=== PATIENT | male | born 1945 | race Hispanic/Latino ===

== ENCOUNTER 2016-05-30 15:50 | Inpatient (IN) | payer MEDICARE, BC ==
--- NOTE | 2016-05-30 16:29 | ED PDOC ---
HPI: General Adult Time Seen by Provider: 05/30/16 16:10 Chief Complaint (Nursing): Abdominal Pain Chief Complaint (Provider): abdominal pain History Per: Patient History/Exam Limitations: no limitations Additional Complaint(s): 71yo male comes to the ED complaining of abdominal pain and distention for 1 week. No vomit or nausea but he has been having diarrhea. He has only been eating soup and drinking fluids. Also reports shortness of breath progressively worsening, stating he is unable to walk more than 1 block. Denies chest pain with exertion but does report intermittent chest pain, described as sharp. States he will see a cosmetic surgeon in approximately 1 month. States he sleeps on 2 pillows at home. Past Medical History Reviewed: Historical Data, Nursing Documentation, Vital Signs Vital Signs: Last Vital Signs Temp 98.5 F 05/30/16 15:55 Pulse 116 H 05/30/16 15:55 Resp 14 05/30/16 15:55 BP 123/72 05/30/16 15:55 Pulse Ox 100 05/30/16 18:52 - Medical History PMH: HTN - Family History Family History: States: Unknown Family Hx - Allergies Allergies/Adverse Reactions: Allergies Allergy/AdvReac Type Severity Reaction Status Date / Time No Known Allergies Allergy Verified 05/30/16 15:54 Review of Systems ROS Statement: Except As Marked, All Systems Reviewed And Found Negative Cardiovascular: Positive for: Chest Pain Respiratory: Positive for: Shortness of Breath Gastrointestinal: Positive for: Abdominal Pain, Diarrhea. Negative for: Nausea , Vomiting Physical Exam - Reviewed Nursing Documentation Reviewed: Yes Vital Signs Reviewed: Yes - Physical Exam Appears: Positive for: Well, Non-toxic, No Acute Distress Head Exam: Positive for: ATRAUMATIC, NORMAL INSPECTION, NORMOCEPHALIC Skin: Positive for: Warm, Dry Eye Exam: Positive for: EOMI, PERRL Cardiovascular/Chest: Positive for: Regular Rate, Rhythm Respiratory: Positive for: Crackles (at the bases bilaterally). Negative for: Rhonchi, Wheezing Gastrointestinal/Abdominal: Positive for: Soft, Distended. Negative for: Tenderness Extremity: Positive for: Normal ROM, Other (2+ pitting edema of leg) Neurologic/Psych: Positive for: Alert, Oriented - Laboratory Results Result Diagrams: 05/30/16 17:00 05/30/16 17:00 - ECG O2 Sat by Pulse Oximetry: 100 Medical Decision Making Medical Decision Makin Impression: first time diagnosis of CHF, rule out Diverticulitis Plan: -CT abd/pel w/ -EKG -CXR -Labs -reassess Disposition - Clinical Impression Clinical Impression: Abdominal distension - Patient ED Disposition Is Patient to be Admitted: Transfer of Care - Disposition Disposition: Transfer of Care Disposition Time: 19:00 Condition: STABLE Patient Signed Over To: Fernie Adorno Handoff Comments: pending ct angio results Additional Comments - Additional Comments Additional Comments: Scribe Attestation: Documented by Omer Jennings acting as a scribe for Kristofer Warren MD Provider Scribe Attestation: All medical record entries made by the Scribe were at my direction and personally dictated by me. I have reviewed the chart and agree that the record accurately reflects my personal performance of the history, physical exam, medical decision making, and the department course for this patient. I have also personally directed, reviewed, and agree with the discharge instructions and disposition.
[2016-05-30 17:26] LABS: ALB/GLOB RATIO 0.5 (1.0-2.1); ALKALINE PHOSPHATASE 117 U/L (38-126); ALT/SGPT 24 U/L (21-72); AST/SGOT 50 U/L (17-59); BILIRUBIN,TOTAL 2.6 mg/dl (0.2-1.3); BLOOD UREA NITROGEN 13 mg/dl (9-20); CALCIUM 8.2 mg/dL (8.4-10.2); CARBON DIOXIDE 21 mmol/L (22-30); CHLORIDE 108 mmol/L (98-107); GFR AFRICAN-AMERICAN > 60; GLUCOSE,RANDOM 96 mg/dL (75-110); POTASSIUM 4.1 MMOL/L (3.6-5.0); SODIUM 135 mmol/l (132-148); TOTAL PROTEIN 7.5 G/DL (6.3-8.2)
[2016-05-30 17:28] LABS: BASO # 0.1 K/uL (0.0-0.2); BASO % 0.6 % (0.0-2.0); EOS # 0.2 K/uL (0.0-0.7); EOS % 1.4 % (0.0-4.0); HEMATOCRIT 36.3 % (35.0-51.0); LYMPH # 1.4 K/uL (1.0-4.3); LYMPH % 10.1 % (20.0-40.0); MEAN CELL VOLUME 99.9 fl (80.0-94.0); MEAN CORPUSCULAR HEMOGLOBIN 33.6 pg (27.0-31.0); MEAN CORPUSCULAR HGB CONC 33.7 g/dL (33.0-37.0); MONO # 1.3 K/uL (0.0-0.8); MONO % 9.5 % (0.0-10.0); NEUT # 10.7 K/uL (1.8-7.0); NEUT % 78.4 % (50.0-75.0); NRBC % 0.1 % (0.0-0.0); RED CELL DISTRIBUTION WIDTH 15.3 % (11.5-14.5); WHITE BLOOD COUNT 13.6 K/uL (4.8-10.8)
[2016-05-30 18:04] LABS: RBC URINE 12 /hpf (0-3); URINE BACTERIA RARE (<OCC); URINE BILIRUBIN NEGATIVE (NEGATIVE); URINE BLOOD SMALL (NEGATIVE); URINE CALCIUM OXALATE CRYSTALS OCC /hpf (<OCC); URINE COLOR AMBER (YELLOW); URINE GLUCOSE (UA) NEG (Normal); URINE KETONE NEGATIVE (NEGATIVE); URINE LEUKOCYTE ESTERASE SMALL Leu/uL (Negative); URINE PROTEIN 30 mg/dL (NEGATIVE); WBC URINE 13 /hpf (0-5)
[2016-05-30] MEDS ORDERED: Iohexol 300 100 ML IJ ONE (18:04)
--- NOTE | 2016-05-30 19:02 | CT ---
PROCEDURE: CT Abdomen and Pelvis with contrast HISTORY: abdominal distension COMPARISON: None. TECHNIQUE: Contrast dose: 100 cc Omnipaque 300 Radiation dose: Total exam DLP = 1145.73 mGy-cm. FINDINGS: LOWER THORAX: No evidence of acute pathology. LIVER: Advanced cirrhotic changes are seen. There is low-attenuation 1.2 centimeter lesion at the posterior aspect of the right liver dome. There is also low-attenuation 1.1 centimeter lesion at the peripheral left liver lobe. There is re- cannulization of the paraumbilical vein. GALLBLADDER AND BILE DUCTS: The gallbladder is mildly distended. PANCREAS: Unremarkable. No gross lesion or ductal dilatation. SPLEEN: Splenomegaly is again seen. The spleen measures 16 centimeter in the largest longitudinal diameter. ADRENALS: Unremarkable. No mass. KIDNEYS AND URETERS: Unremarkable. No hydronephrosis. No solid mass. VASCULATURE: Multiple collateral veins seen in the upper abdomen including paraesophageal varices consistent with portal hypertension. . No aortic aneurysm. BOWEL: Colonic diverticulosis are seen without evidence of diverticulitis. No evidence of bowel obstruction. APPENDIX: Normal appendix. PERITONEUM: Moderate to large ascites in the abdomen and pelvis. No evidence of free air. LYMPH NODES: Unremarkable. No enlarged lymph nodes. BLADDER: Mild urinary bladder wall thickening. REPRODUCTIVE: [id number] enlarged prostate and seminal vesicles BONES: Large Schmorl nodes versus focal compression deformity at the superior endplate of L3. OTHER FINDINGS: None. IMPRESSION: Findings consistent with advanced cirrhosis and portal hypertension. Moderate to large ascites in the abdomen and pelvis. Splenomegaly. Multiple collateral veins in the upper abdomen consistent with portal systemic shunts and varices related to portal hypertension. Two hypo attenuation lesions in the liver. Enlarged prostate.
--- NOTE | 2016-05-30 19:35 | ED PDOC ---
- Laboratory Results Result Diagrams: 05/30/16 17:00 05/30/16 17:00 - ECG O2 Sat by Pulse Oximetry: 100 (RA) Pulse Ox Interpretation: Normal Medical Decision Making Medical Decision Making: Receiving Sign Out: Patient signed out to me by Dr. Warren pending response from Dr. Montoya and final disposition. Scribe Attestation: Documented by Evelia Hilliard acting as a scribe for Fernie Adorno MD. Provider Attestation: All medical record entries made by the Scribe were at my direction and personally dictated by me. I have reviewed the chart and agree that the record accurately reflects my personal performance of the history, physical exam, medical decision making, and the department course for this patient. I have also personally directed, reviewed, and agree with the discharge instructions and disposition. Disposition Counseled Patient/Family Regarding: Studies Performed, Diagnosis, Need For Followup - Clinical Impression Clinical Impression: Abdominal distension - POA Present On Arrival: None - Disposition Disposition: Admitted as In-Patient Disposition Time: 20:00 Condition: STABLE Progress Note - Review of Symptoms Events since last encounter: Time: 1942 No call back yet from Dr. Montoya Time: [address] Montoya who advised to admit pt under him. Requesting blood culture as well and urine culture. Also advised to get GI consult with Dr. Kyle and give pt Zosyn. Discussed plan with pt and daughter who are both agreeable. Time: [address] Kyle who is aware.
[2016-05-30] MEDS ORDERED: Piperacillin/Tazobact 4.5 GM in Sodium Chloride 0.9% 100 ML IVPB STA (21:02)
[2016-05-30] MEDS ORDERED: Piperacillin/Tazobact 3.375 gm Inj IVPB ONE (21:06)
--- NOTE | 2016-05-31 08:41 | RAD ---
HISTORY: SOB, crackles at bases COMPARISON: No prior. TECHNIQUE: Chest PA and lateral FINDINGS: LUNGS: No active pulmonary disease. PLEURA: No significant pleural effusion identified. No pneumothorax apparent. CARDIOVASCULAR: Normal. OSSEOUS STRUCTURES: No significant abnormalities. VISUALIZED UPPER ABDOMEN: Normal. OTHER FINDINGS: Mild elevation of the right hemidiaphragm noted. IMPRESSION: No active disease. Baseline study.
[2016-05-31 10:35] LABS: BASO # 0.2 K/uL (0.0-0.2); BASO % 1.2 % (0.0-2.0); EOS # 0.4 K/uL (0.0-0.7); EOS % 3.3 % (0.0-4.0); HEMATOCRIT 33.6 % (35.0-51.0); LYMPH # 1.5 K/uL (1.0-4.3); LYMPH % 11.7 % (20.0-40.0); MEAN CELL VOLUME 99.4 fl (80.0-94.0); MEAN CORPUSCULAR HEMOGLOBIN 33.9 pg (27.0-31.0); MEAN CORPUSCULAR HGB CONC 34.1 g/dL (33.0-37.0); MEAN PLATELET VOLUME 8.6 fl (7.2-11.7); MONO # 1.5 K/uL (0.0-0.8); MONO % 11.9 % (0.0-10.0); NEUT # 9.3 K/uL (1.8-7.0); NEUT % 71.9 % (50.0-75.0); RED CELL DISTRIBUTION WIDTH 15.2 % (11.5-14.5); WHITE BLOOD COUNT 12.9 K/uL (4.8-10.8)
[2016-05-31 10:45] LABS: AMYLASE 71 U/L (30-110); BLOOD UREA NITROGEN 14 mg/dl (9-20); CALCIUM 7.9 mg/dL (8.4-10.2); CARBON DIOXIDE 24 mmol/L (22-30); CHLORIDE 109 mmol/L (98-107); CHOLESTEROL 57 mg/dL (0-199); GFR AFRICAN-AMERICAN > 60; GLUCOSE,RANDOM 76 mg/dL (75-110); LIPASE 316 U/L (23-300); POTASSIUM 4.4 MMOL/L (3.6-5.0); SODIUM 138 mmol/l (132-148)
[2016-05-31 11:14] LABS: THYROID STIMULATING HORMONE 2.48 mIU/ML (0.46-4.68)
--- NOTE | 2016-05-31 15:47 | CP.PCM.HP ---
History of Present Illness - History of Present Illness History of Present Illness: 71 yo admitted for nonspecific abdominal pain with change in bowel movements Present on Admission - Present on Admission Any Indicators Present on Admission: No Past Patient History - Past Medical History & Family History Past Medical History?: Yes - Past Social History Smoking Status: Former Smoker - CARDIAC Hx Cardiac Disorders: Yes Hx Hypertension: Yes - PULMONARY Hx Respiratory Disorders: No - NEUROLOGICAL Hx Neurological Disorder: No - HEENT Hx HEENT Problems: No - RENAL Hx Chronic Kidney Disease: No - ENDOCRINE/METABOLIC Hx Endocrine Disorders: No - HEMATOLOGICAL/ONCOLOGICAL Hx Blood Disorders: No - INTEGUMENTARY Hx Dermatological Problems: No - MUSCULOSKELETAL/RHEUMATOLOGICAL Hx Falls: Yes (2 in past 2 weeks) - GASTROINTESTINAL Hx Gastrointestinal Disorders: No - GENITOURINARY/GYNECOLOGICAL Hx Genitourinary Disorders: No - PSYCHIATRIC Hx Substance Use: No - SURGICAL HISTORY Hx Surgeries: Yes Other/Comment: 2000 arthroscopic knee surgery - ANESTHESIA Hx Anesthesia: Yes Hx Anesthesia Reactions: No Hx Malignant Hyperthermia: No Has any member of the family had a problem w/ anesthesia?: No Meds Allergies/Adverse Reactions: Allergies Allergy/AdvReac Type Severity Reaction Status Date / Time No Known Allergies Allergy Verified 05/30/16 15:54 Physical Exam - Respiratory Exam Respiratory Exam: NORMAL BREATHING PATTERN - Cardiovascular Exam Cardiovascular Exam: REGULAR RHYTHM - GI/Abdominal Exam GI & Abdominal Exam: Normal Bowel Sounds Results - Vital Signs Recent Vital Signs: Last Vital Signs Temp 98 F 05/31/16 07:54 Pulse 92 H 05/31/16 12:00 Resp 20 05/31/16 07:54 BP 110/68 05/31/16 12:00 Pulse Ox 96 05/31/16 07:54 - Labs Result Diagrams: 05/31/16 10:30 05/31/16 10:30 Labs: Laboratory Results - last 24 hr 05/31/16 10:30 WBC 12.9 H RBC 3.38 L Hgb 11.5 L Hct 33.6 L MCV 99.4 H MCH 33.9 H MCHC 34.1 RDW 15.2 H Plt Count 113 L D MPV 8.6 Neut % (Auto) 71.9 Lymph % (Auto) 11.7 L [place] % (Auto) 11.9 H Eos % (Auto) 3.3 Baso % (Auto) 1.2 Neut # 9.3 H Lymph # 1.5 [place] # 1.5 H Eos # 0.4 Baso # 0.2 Sodium 138 Potassium 4.4 Chloride 109 H Carbon Dioxide 24 Anion Gap 9 L BUN 14 Creatinine 0.9 Est GFR ( Amer) > 60 Est GFR (Non-Af Amer) > 60 Random Glucose 76 Calcium 7.9 L Ammonia < 9 L Triglycerides 64 Cholesterol 57 LDL Cholesterol Direct < 30 HDL Cholesterol 14 L Amylase 71 Lipase 316 H TSH 3rd Generation 2.48 Assessment & Plan - Assessment and Plan (Free Text) Assessment: Abdominal pain with change in BM Hepatosplenomegaly Portal HTN ascites Leukopcytosis Gastroenteritis vs ??SBE ABX cultures Clear liquids GI consult
[2016-05-31] MEDS: Ciprofloxacin 400mg/200ml D5W 200 ML IVPB SCH (20:11)
--- NOTE | 2016-05-31 21:41 | CP.PCM.CON ---
History of Present Illness - History of Present Illness History of Present Illness: 71yo male with past history of hypertension, admitted with abdominal distention , diarrhea , and shortness of breath. Symptoms of diarrhea and abdominal pain started about2 weeks ago. They initially resolved but then he noted increasing abdominal distention. Has no prior knowledge of liver disease and has not used alcohol regularly for 3 years. No risk factors for HCV. Review of Systems - EENT Eyes: absent: Blurred Vision Ears: absent: Decreased Hearing Nose/Mouth/Throat: absent: Epistaxis - Cardiovascular Cardiovascular: absent: Chest Pain - Respiratory Respiratory: Dyspnea - Gastrointestinal Gastrointestinal: Abdominal Pain Past Patient History - Past Medical History & Family History Past Medical History?: Yes - Past Social History Smoking Status: Former Smoker - CARDIAC Hx Cardiac Disorders: Yes Hx Hypertension: Yes - PULMONARY Hx Respiratory Disorders: No - NEUROLOGICAL Hx Neurological Disorder: No - HEENT Hx HEENT Problems: No - RENAL Hx Chronic Kidney Disease: No - ENDOCRINE/METABOLIC Hx Endocrine Disorders: No - HEMATOLOGICAL/ONCOLOGICAL Hx Blood Disorders: No - INTEGUMENTARY Hx Dermatological Problems: No - MUSCULOSKELETAL/RHEUMATOLOGICAL Hx Falls: Yes (2 in past 2 weeks) - GASTROINTESTINAL Hx Gastrointestinal Disorders: No - GENITOURINARY/GYNECOLOGICAL Hx Genitourinary Disorders: No - PSYCHIATRIC Hx Substance Use: No - SURGICAL HISTORY Hx Surgeries: Yes Other/Comment: 2000 arthroscopic knee surgery - ANESTHESIA Hx Anesthesia: Yes Hx Anesthesia Reactions: No Hx Malignant Hyperthermia: No Has any member of the family had a problem w/ anesthesia?: No Meds Allergies/Adverse Reactions: Allergies Allergy/AdvReac Type Severity Reaction Status Date / Time No Known Allergies Allergy Verified 05/30/16 15:54 - Medications Medications: Current Medications Piperacillin Sod/Tazobactam (Sod 2.25 gm/ Sodium Chloride) 100 mls @ 100 mls/ hr IVPB Q8 [facility] Last Admin: 05/31/16 17:42 Dose: 100 mls/hr Ciprofloxacin (Cipro 400mg/200ml Dsw) 200 mls @ 200 mls/hr IVPB Q12 [facility] Last Admin: 05/31/16 20:11 Dose: 200 mls/hr Spironolactone (Aldactone) 50 mg PO DAILY [facility] Physical Exam - Head Exam Head Exam: ATRAUMATIC - Eye Exam Eye Exam: Normal appearance - ENT Exam ENT Exam: Mucous Membranes Moist - Neck Exam Neck exam: Positive for: Normal Inspection - Cardiovascular Exam Cardiovascular Exam: REGULAR RHYTHM, +S1, +S2 - GI/Abdominal Exam GI & Abdominal Exam: Distended, Normal Bowel Sounds Results - Vital Signs Recent Vital Signs: Last Vital Signs Temp 98.6 F 05/31/16 21:25 Pulse 86 05/31/16 21:25 Resp 18 05/31/16 21:25 BP 103/66 05/31/16 21:25 Pulse Ox 96 05/31/16 21:25 - Labs Result Diagrams: 05/31/16 10:30 05/31/16 10:30 Labs: Laboratory Results - last 24 hr 05/31/16 05/31/16 10:30 17:55 WBC 12.9 H RBC 3.38 L Hgb 11.5 L Hct 33.6 L MCV 99.4 H MCH 33.9 H MCHC 34.1 RDW 15.2 H Plt Count 113 L D MPV 8.6 Neut % (Auto) 71.9 Lymph % (Auto) 11.7 L [place] % (Auto) 11.9 H Eos % (Auto) 3.3 Baso % (Auto) 1.2 Neut # 9.3 H Lymph # 1.5 [place] # 1.5 H Eos # 0.4 Baso # 0.2 Sodium 138 Potassium 4.4 Chloride 109 H Carbon Dioxide 24 Anion Gap 9 L BUN 14 Creatinine 0.9 Est GFR ( Amer) > 60 Est GFR (Non-Af Amer) > 60 Random Glucose 76 Calcium 7.9 L Ammonia < 9 L Triglycerides 64 Cholesterol 57 LDL Cholesterol Direct < 30 HDL Cholesterol 14 L Amylase 71 Lipase 316 H TSH 3rd Generation 2.48 Influenza Typ A,B (EIA) Negative for flu a/b Assessment & Plan (1) Abdominal distension Assessment and Plan: Initial symptoms may have been from gastroenteritis and currently patient doing better on antibiotics. Cause of cirrhosis unclear and appropriate bloodwork ordered. Since patient has no priorh/o ascites a diagnostic parascentesis by IR is reasonable. Fluid and salt restriction as well as aldactone 50 mg started. Cozaar stopped. Status: Acute
[2016-06-01 07:04] LABS: IRON 70 ug/dL (49-181)
[2016-06-01] MEDS: Ciprofloxacin 400mg/200ml D5W 200 ML IVPB SCH (09:05)
--- NOTE | 2016-06-01 12:25 | PQF GENQUE ---
Dr. Montoya, (1)After work up complete and if known:Gastroenteritis ruled in or ruled out? (2) If Gastroenteritis is ruled in: type/etiology if known? (3) SBE ruled in or ruled out? OR: Unable to determine --Attending H and P: Gastroenteritis vs ??SBE: ABX cultures, Clear liquids --GI consult: Abdominal distension Assessment and Plan: Initial symptoms may have been from gastroenteritis and currently patient doing better on antibiotics. Cause of cirrhosis unclear and appropriate blood work ordered. Since patient has no prior h/o ascites a diagnostic parascentesis by IR is reasonable. Fluid and salt restriction as well as aldactone 50 mg started. Cozaar stopped. Status: Acute WBC:12.9 C-diff toxin A B: negative 2 blood cultures :prelim: -blood culture prelim: GRAM POSITIVE COCCI QUANTITATION BLOOD CULTURE POSITIVE FOR ANAEROBIC BOTTLE POSITIVE ONLY. GS GRAM STAIN RESULT PCG GRAM POSITIVE COCCI IN CLUSTERS - blood culture: GRAM POSITIVE COCCI QUANTITATION BLOOD CULTURE POSITIVE FOR ANAEROBIC BOTTLEPOSITIVE ONLY. GS GRAM STAIN RESULT PCG GRAM POSITIVE COCCI IN CLUSTERS ID consult pending This form is a permanent part of the medical record Clarification of your documentation is requested to better reflect the severity of illness and intensity of treatment of your patient. Indicators present [] Specify: [] [] Specify: [] [] Specify: [] [] Specify: [] Location in the medical record that reflects the above clinical findings: [] Treatment Provided: [] PHYSICIAN'S RESPONSE Based on your medical judgment of the clinical indicators outlined above please clarify the following: [] Practitioner response [] If unable to determine, please check the box, sign and date. Present On Admission (POA) Indicator: [] Present at the time of admission [] Not present at the time of admission [] Clinically Undetermined In responding to this query, please exercise your independent professional judgment. The fact that a question is asked does not imply that any particular answer is desired or expected. Thank you for your clarification on this documentation. If you have any questions please call. * Thank you, Sheela Kohler RN BSN ext. #[phone] MTDD
--- NOTE | 2016-06-01 13:04 | PCM.SURG1 ---
Surgeon's Initial Post Op Note - Surgeon's Notes Surgeon: Susan Dwyer Trouble Operator: None Type of Anesthesia: Local Pre-Operative Diagnosis: Ascites Operative Findings: Limited ultrasound showed a large amount of ascites. Post-Operative Diagnosis: Ascites Operation Performed: US guided paracentesis. Specimen/Specimens Removed: 4.6 liters of straw colored fluid. Estimated Blood Loss: EBL {In ML}: 0 Blood Products Given: N/A Drains Used: No Drains Post-Op Condition: Fair Date of Surgery/Procedure: 06/01/16 Time of Surgery/Procedure: 13:20
[2016-06-01 13:20] LABS: BODY FLUID TYPE PERITONEAL/ASCITES
--- NOTE | 2016-06-01 13:30 | CP.PCM.CON ---
History of Present Illness - History of Present Illness History of Present Illness: 71yo male comes to the ED complaining of abdominal pain and distention for 1 week. No vomit or nausea but he has been having diarrhea. He has only been eating soup and drinking fluids. Also reports shortness of breath progressively worsening, stating he is unable to walk more than 1 block. Denies chest pain with exertion but does report intermittent chest pain, described as sharp. States he will see a musculoskeletal physician in approximately 1 month. States he sleeps on 2 pillows at home. FOUND TO HAVE + BLOOD C/S LARGE ASCITES AND CIRRHOSIS OF LIVER Review of Systems - Constitutional Constitutional: Anorexia, Fatigue - EENT Eyes: absent: As Per HPI, Blind Spots, Blurred Vision, Change in Vision, Decreased Night Vision, Diplopia, Discharge, Dry Eye, Exophthalmos, Floaters, Irritation, Itchy Eyes, Loss of Peripheral Vision, Pain, Photophobia, Requires Corrective Lenses, Sees Flashes, Spots in Vision, Tunnel Vision, Other Visual Disturbances, Loss of Vision, Other Ears: absent: As Per HPI, Decreased Hearing, Ear Discharge, Ear Pain, Tinnitus, Abnormal Hearing, Disequilibrium, Dizziness, Other Nose/Mouth/Throat: absent: As Per HPI, Epistaxis, Nasal Congestion, Nasal Discharge, Nasal Obstruction, Nasal Trauma, Nose Pain, Post Nasal Drip, Sinus Pain, Sinus Pressure, Bleeding Gums, Change in Voice, Dental Pain, Dry Mouth, Dysphagia, Halitosis, Hoarsness, Lip Swelling, Mouth Lesions, Mouth Pain, Odynophagia, Sore Throat, Throat Swelling, Tongue Swelling, Facial Pain, Neck Pain, Neck Mass, Other - Cardiovascular Cardiovascular: absent: As Per HPI, Acrocyanosis, Chest Pain, Chest Pain at Rest , Chest Pain with Activity, Claudication, Diaphoresis, Dyspnea, Dyspnea on Exertion, Edema, Irregular Heart Rhythm, Pain Radiating to Arm/Neck/Jaw, Leg Edema, Leg Ulcers, Lightheadedness, Orthopnea, Palpitations, Paroxysmal Nocturnal Dyspnea, Pedal Edema, Radiating Pain, Rapid Heart Rate, Slow Heart Rate, Syncope, Other - Respiratory Respiratory: absent: As Per HPI, Cough, Dyspnea, Hemoptysis, Dyspnea on Exertion , Wheezing, Snoring, Stridor, Pain on Inspiration, Chest Congestion, Excessive Mucous Production, Change in Mucous Color, Pain with Coughing, Other - Gastrointestinal Gastrointestinal: As Per HPI, Abdominal Pain - Genitourinary Genitourinary: absent: As Per HPI, Change in Urinary Stream, Difficulty Urinating, Dysuria, Flank Pain, Hematuria, Pyuria, Nocturia, Urinary Incontinence, Urinary Frequency, Urinary Hesitance, Urinary Urgency, Voiding Freq/Small Amts, Freq UTI, Hx Renal/Bladder Calculi, Hx /Renal Surgery, Bladder Distension, Other - Musculoskeletal Musculoskeletal: As Per HPI - Integumentary Integumentary: As Per HPI - Neurological Neurological: absent: As Per HPI, Abnormal Gait, Abnormal Hearing, Abnormal Movements, Abnormal Speech, Behavioral Changes, Burning Sensations, Confusion, Convulsions, Disequilibrium, Dizziness, Numbness, Focal Weakness, Frequent Falls , Headaches, Lack of Coordination, Loss of Vision, Memory Loss, Paresthesias, Radicular Pain, Restless Legs, Sensory Deficit, Syncope, Tingling, Tremor, Vertigo, Weakness, Other Visual Disturbances, Other - Psychiatric Psychiatric: absent: As Per HPI, Abnormal Sleep Pattern, Anhedonia, Anxiety, Auditory Hallucinations, Behavioral Changes, Change in Appetite, Change in Libido, Confusion, Depression, Difficulty Concentrating, Hallucinations, Homicidal Ideation, Hopelessness, Irritability, Memory Loss, Mood Swings, Panic Attacks, Paranoia, Suicidal Ideation, Visual Hallucinations, Tactile Hallucinations, Other - Endocrine Endocrine: absent: As Per HPI, Change in Body Appearance, Change in Libido, Cold Intolorance, Deepening of Voice, Excessive Sweating, Fatigue, Flushing, Heat Intolorance, Increase in Ring/Shoe/Hat Size, Palpitations, Polydipsia, Polyphagia, Polyuria, Other - Hematologic/Lymphatic Hematologic: absent: As Per HPI, Easy Bleeding, Easy Bruising, Lymphadenopathy, Other Past Patient History - Past Medical History & Family History Past Medical History?: Yes - Past Social History Smoking Status: Former Smoker - CARDIAC Hx Cardiac Disorders: Yes Hx Hypertension: Yes - PULMONARY Hx Respiratory Disorders: No - NEUROLOGICAL Hx Neurological Disorder: No - HEENT Hx HEENT Problems: No - RENAL Hx Chronic Kidney Disease: No - ENDOCRINE/METABOLIC Hx Endocrine Disorders: No - HEMATOLOGICAL/ONCOLOGICAL Hx Blood Disorders: No - INTEGUMENTARY Hx Dermatological Problems: No - MUSCULOSKELETAL/RHEUMATOLOGICAL Hx Falls: Yes (2 in past 2 weeks) - GASTROINTESTINAL Hx Gastrointestinal Disorders: No - GENITOURINARY/GYNECOLOGICAL Hx Genitourinary Disorders: No - PSYCHIATRIC Hx Substance Use: No - SURGICAL HISTORY Hx Surgeries: Yes Other/Comment: 2000 arthroscopic knee surgery - ANESTHESIA Hx Anesthesia: Yes Hx Anesthesia Reactions: No Hx Malignant Hyperthermia: No Has any member of the family had a problem w/ anesthesia?: No Meds Allergies/Adverse Reactions: Allergies Allergy/AdvReac Type Severity Reaction Status Date / Time No Known Allergies Allergy Verified 05/30/16 15:54 - Medications Medications: Current Medications Piperacillin Sod/Tazobactam (Sod 2.25 gm/ Sodium Chloride) 100 mls @ 100 mls/ hr IVPB Q8 [facility] Last Admin: 06/01/16 09:02 Dose: 100 mls/hr Ciprofloxacin (Cipro 400mg/200ml Dsw) 200 mls @ 200 mls/hr IVPB Q12 [facility] Last Admin: 06/01/16 09:05 Dose: 200 mls/hr Spironolactone (Aldactone) 50 mg PO DAILY [facility] Last Admin: 06/01/16 09:06 Dose: 50 mg Physical Exam - Constitutional Appears: Non-toxic, Chronically Ill - Head Exam Head Exam: ATRAUMATIC, NORMAL INSPECTION, NORMOCEPHALIC - Eye Exam Eye Exam: PERRL. absent: Scleral icterus Pupil Exam: NORMAL ACCOMODATION - ENT Exam ENT Exam: Mucous Membranes Moist, Normal Exam - Neck Exam Neck exam: Negative for: Lymphadenopathy - Respiratory Exam Respiratory Exam: Decreased Breath Sounds, Clear to Auscultation Bilateral - Cardiovascular Exam Cardiovascular Exam: REGULAR RHYTHM, +S1, +S2 - GI/Abdominal Exam GI & Abdominal Exam: Diminished Bowel Sounds, Distended, Firm, Guarding, Soft. absent: Pulsatile Mass, Rebound, Rigid, Tenderness - Rectal Exam Rectal Exam: Deferred - Exam Exam: NORMAL INSPECTION - Extremities Exam Extremities exam: Negative for: calf tenderness, pedal edema - Back Exam Back exam: absent: CVA tenderness (L), CVA tenderness (R) - Neurological Exam Neurological exam: Alert, CN II-XII Intact, Oriented x3, Reflexes Normal - Psychiatric Exam Psychiatric exam: Depressed - Skin Skin Exam: Dry, Intact Results - Vital Signs Recent Vital Signs: Last Vital Signs Temp 98.2 F 06/01/16 13:19 Pulse 96 H 06/01/16 13:19 Resp 18 06/01/16 13:19 BP 139/86 06/01/16 13:19 Pulse Ox 98 06/01/16 13:19 - Labs Result Diagrams: 05/31/16 10:30 05/31/16 10:30 Labs: Laboratory Results - last 24 hr 05/31/16 05/31/16 06/01/16 16:12 17:55 05:35 PT 19.4 H INR 1.87 H Iron 70 TIBC 159 L % Saturation 44 Alpha Fetoprotein 3.1 Fluid Source C. difficile Ag & Toxin Negative Hepatitis A IgM Ab Negative Hep Bs Antigen Negative Hep B Core IgM Ab Negative Hepatitis C Antibody Negative Influenza Typ A,B (EIA) Negative for flu a/b 06/01/16 12:45 PT INR Iron TIBC % Saturation Alpha Fetoprotein Fluid Source Peritoneal/ascites C. difficile Ag & Toxin Hepatitis A IgM Ab Hep Bs Antigen Hep B Core IgM Ab Hepatitis C Antibody Influenza Typ A,B (EIA) Assessment & Plan (1) Abdominal distension Status: Acute (2) Cirrhosis of liver with ascites Status: Acute (3) Bacteremia Status: Acute - Assessment and Plan (Free Text) Assessment: CONT IV RX GI EVAL POSSIBLE LIVER BIOPSY NEEDS ECHO POSSIBLY MEL WILL FOLLOW
[2016-06-01 14:15] LABS: LDH,BODY FLUID 374 IU (NONE ESTABLISHED)
[2016-06-01 14:50] LABS: BF GROSS APPEARANCE CLEAR (CLEAR)
[2016-06-01 16:12] LABS: BODY FLUID TOTAL COUNT 100 (0-0)
--- NOTE | 2016-06-01 16:19 | CP.PCM.CON ---
History of Present Illness - History of Present Illness History of Present Illness: THE PATIENT IS A 71 YEAR OLD MALE WHO HAS A HISTORY OF HYPERTENSION AND HE HAS BEEN ON LOSARTAN FOR THIS. HE DENIES ANY OTHER MEDICAL PROBLEMS OTHER THAN KNEE AND BACK DISK DISEASE. HE NOW STATES THAT HE HAS HAD DIARRHEA FOR ABOUT 2 WEEKS AND FOR ABOUT 1 WEEK HAS DEVELOPED A DISTENDED ABDOMEN AND LEG EDEMA. HE SAW DR NEWTON IN THE OFFICE ON MONDAY AND WAS SENT TO THE ER FOR ASCITES. A CAT SCAN OF THE ABDOMEN FOUND LIVER CIRRHOSIS AND PORTAL HYPERTENSIONAND HE WAS ADMITTED. HE DENIES CHEST PAIN. HE STATES THAT ABOUT 10 YRS AGO HE WAS ADMITTED TO [facility] FOR CHEST PAIN AND THAT ALL TESTS INCLUDING A CARDIAC CATH WERE NORMAL. Past Patient History - Past Medical History & Family History Past Medical History?: Yes - Past Social History Smoking Status: Former Smoker - CARDIAC Hx Cardiac Disorders: Yes Hx Hypertension: Yes - PULMONARY Hx Respiratory Disorders: No - NEUROLOGICAL Hx Neurological Disorder: No - HEENT Hx HEENT Problems: No - RENAL Hx Chronic Kidney Disease: No - ENDOCRINE/METABOLIC Hx Endocrine Disorders: No - HEMATOLOGICAL/ONCOLOGICAL Hx Blood Disorders: No - INTEGUMENTARY Hx Dermatological Problems: No - MUSCULOSKELETAL/RHEUMATOLOGICAL Hx Falls: Yes (2 in past 2 weeks) - GASTROINTESTINAL Hx Gastrointestinal Disorders: No - GENITOURINARY/GYNECOLOGICAL Hx Genitourinary Disorders: No - PSYCHIATRIC Hx Substance Use: No - SURGICAL HISTORY Hx Surgeries: Yes Other/Comment: 2000 arthroscopic knee surgery - ANESTHESIA Hx Anesthesia: Yes Hx Anesthesia Reactions: No Hx Malignant Hyperthermia: No Has any member of the family had a problem w/ anesthesia?: No Meds Allergies/Adverse Reactions: Allergies Allergy/AdvReac Type Severity Reaction Status Date / Time No Known Allergies Allergy Verified 05/30/16 15:54 - Medications Medications: Current Medications Vancomycin HCl 1 gm/ Sodium (Chloride) 250 mls @ 166.667 mls/hr IVPB Q12H [facility] Piperacillin Sod/Tazobactam (Sod 3.375 gm/ Sodium Chloride) 100 mls @ 100 mls/ hr IVPB Q8H [facility] Spironolactone (Aldactone) 50 mg PO DAILY [facility] Last Admin: 06/01/16 09:06 Dose: 50 mg Physical Exam - Respiratory Exam Respiratory Exam: Clear to Auscultation Bilateral - Cardiovascular Exam Cardiovascular Exam: REGULAR RHYTHM, +S1, +S2 - GI/Abdominal Exam Additional comments: ASCITES - Extremities Exam Extremities exam: Positive for: pedal edema - Additional Findings Additional findings: EKG ST, R 104, FIRST DEGREE AV BLOCK, LAD ECHO WITH NORMAL LV SIZE AND SYSTOLIC FUNCTION, AV CALCIFICATION WITH MILD , NO VALVULAR VEGETATIONS SEEN CXR READ NAD, MILD CHRONIC CHANGES IN MY OPINION GI AND ID NOTES REVIEWED CT OF ABDOMEN WITH LIVER CIRRHOSIS AND AND PORTAL HYPERTENSION IR NOTE REVIEWED WITH 4.6 LITERS OF STRAW COLORED FLUID REMOVED ON PARACENTESIS Results - Vital Signs Recent Vital Signs: Last Vital Signs Temp 98.2 F 06/01/16 13:19 Pulse 96 H 06/01/16 13:19 Resp 18 06/01/16 13:19 BP 139/86 06/01/16 13:19 Pulse Ox 98 06/01/16 13:19 - Labs Result Diagrams: 06/02/16 05:25 06/02/16 05:25 Labs: Laboratory Results - last 24 hr 05/31/16 05/31/16 06/01/16 16:12 17:55 05:35 PT 19.4 H INR 1.87 H Iron 70 TIBC 159 L % Saturation 44 Alpha Fetoprotein 3.1 Fluid Source Fluid Appearance Fluid WBC Fluid RBC Fluid Glucose Fluid Total Protein Fluid LDH Fluid Amylase Fluid Triglycerides Fluid Comment C. difficile Ag & Toxin Negative Hepatitis A IgM Ab Negative Hep Bs Antigen Negative Hep B Core IgM Ab Negative Hepatitis C Antibody Negative Influenza Typ A,B (EIA) Negative for flu a/b 06/01/16 12:45 PT INR Iron TIBC % Saturation Alpha Fetoprotein Fluid Source Peritoneal/ascites Fluid Appearance Clear Fluid WBC 261.0 Fluid RBC 422.0 H Fluid Glucose 104 Fluid Total Protein < 2.0 Fluid LDH 374 Fluid Amylase < 30 Fluid Triglycerides 27 Fluid Comment None C. difficile Ag & Toxin Hepatitis A IgM Ab Hep Bs Antigen Hep B Core IgM Ab Hepatitis C Antibody Influenza Typ A,B (EIA) Assessment & Plan - Assessment and Plan (Free Text) Assessment: LIVER CIRRHOSIS AND PORTAL HYPERTENSION WITH ASCITES AND LEG EDEMA HYPERTENSION NORMAL LV SYSTOLIC FUNCTION WITH MILD Plan: THE PATIENT IS ON SPIRONOLACTONE 50 MGS DAILY AND ANTIBIOTICS NO FURTHER CARDIAC WORK UP OR TREATMENT NEEDED AT THE PRESENT TIME
[2016-06-01] MEDS: Piperacillin/Tazobact 3.375 GM in Sodium Chloride 0.9% 100 ML IVPB SCH ×2 (16:33→21:11)
--- NOTE | 2016-06-01 18:15 | CP.PCM.PN ---
Subjective - Date & Time of Evaluation Date of Evaluation: 06/01/16 Time of Evaluation: 18:11 - Subjective Subjective: Feels better post parascentesis today. Less SOB and discomfort. Objective - Vital Signs/Intake and Output Vital Signs (last 24 hours): Temp Pulse Resp BP Pulse Ox 97.6 F 92 H 18 115/70 98 06/01/16 16:22 06/01/16 16:22 06/01/16 16:22 06/01/16 16:22 06/01/16 16:22 - Medications Medications: Current Medications Vancomycin HCl 1 gm/ Sodium (Chloride) 250 mls @ 166.667 mls/hr IVPB Q12H [facility] Last Admin: 06/01/16 16:33 Dose: 166.667 mls/hr Piperacillin Sod/Tazobactam (Sod 3.375 gm/ Sodium Chloride) 100 mls @ 100 mls/ hr IVPB Q8H [facility] Last Admin: 06/01/16 16:33 Dose: 100 mls/hr Spironolactone (Aldactone) 50 mg PO DAILY [facility] Last Admin: 06/01/16 09:06 Dose: 50 mg - Labs Labs: 05/31/16 10:30 05/31/16 10:30 PT 19.4 SECONDS (9.6-11.2) H 06/01/16 05:35 INR 1.87 (0.92-1.08) H 06/01/16 05:35 - Head Exam Head Exam: ATRAUMATIC - Eye Exam Pupil Exam: NORMAL ACCOMODATION - Respiratory Exam Respiratory Exam: NORMAL BREATHING PATTERN - Cardiovascular Exam Cardiovascular Exam: REGULAR RHYTHM, +S1, +S2 - GI/Abdominal Exam GI & Abdominal Exam: Distended, Soft. absent: Tenderness Assessment and Plan (1) Abdominal distension Assessment & Plan: Feels better post parascentesis. Analysis of ascitic fluid shows transudate and no infection. Lab workup for etiology of cirrhosis is in progress. Continue diuretic/ fluid and salt restriction Status: Acute
--- NOTE | 2016-06-01 19:16 | CP.PCM.PN ---
Subjective - Date & Time of Evaluation Date of Evaluation: 06/01/16 Time of Evaluation: 22:22 - Subjective Subjective: Above noted Objective - Vital Signs/Intake and Output Vital Signs (last 24 hours): Temp Pulse Resp BP Pulse Ox 97.6 F 92 H 18 115/70 98 06/01/16 16:22 06/01/16 16:22 06/01/16 16:22 06/01/16 16:22 06/01/16 16:22 - Medications Medications: Current Medications Vancomycin HCl 1 gm/ Sodium (Chloride) 250 mls @ 166.667 mls/hr IVPB Q12H [facility] Last Admin: 06/01/16 16:33 Dose: 166.667 mls/hr Piperacillin Sod/Tazobactam (Sod 3.375 gm/ Sodium Chloride) 100 mls @ 100 mls/ hr IVPB Q8H [facility] Last Admin: 06/01/16 16:33 Dose: 100 mls/hr Spironolactone (Aldactone) 50 mg PO DAILY [facility] Last Admin: 06/01/16 09:06 Dose: 50 mg - Labs Labs: 05/31/16 10:30 05/31/16 10:30 PT 19.4 SECONDS (9.6-11.2) H 06/01/16 05:35 INR 1.87 (0.92-1.08) H 06/01/16 05:35 - Respiratory Exam Respiratory Exam: NORMAL BREATHING PATTERN - Cardiovascular Exam Cardiovascular Exam: REGULAR RHYTHM - GI/Abdominal Exam GI & Abdominal Exam: Normal Bowel Sounds Assessment and Plan - Assessment and Plan (Free Text) Assessment: + gram pos culture ID consult Abdominal pain with change in BM Hepatosplenomegaly Portal HTN ascites etiol?? Leukopcytosis Gastroenteritis vs ??SBE s/p paracentesis ABX cultures GI consult [id number]
[2016-06-02] MEDS: Piperacillin/Tazobact 3.375 GM in Sodium Chloride 0.9% 100 ML IVPB SCH ×3 (05:15→21:25)
[2016-06-02 06:25] LABS: HEMATOCRIT 32.4 % (35.0-51.0); MEAN CELL VOLUME 100.1 fl (80.0-94.0); MEAN CORPUSCULAR HGB CONC 33.9 g/dL (33.0-37.0); RED CELL DISTRIBUTION WIDTH 15.3 % (11.5-14.5); WHITE BLOOD COUNT 10.8 K/uL (4.8-10.8)
[2016-06-02 06:50] LABS: CHLORIDE 109 mmol/L (98-107)
[2016-06-02 06:51] LABS: SODIUM 140 mmol/l (132-148)
[2016-06-02 06:53] LABS: GFR AFRICAN-AMERICAN > 60
[2016-06-02 06:54] LABS: BLOOD UREA NITROGEN 14 mg/dl (9-20); CALCIUM 7.4 mg/dL (8.4-10.2); CARBON DIOXIDE 23 mmol/L (22-30); GLUCOSE,RANDOM 73 mg/dL (75-110)
--- NOTE | 2016-06-02 09:09 | CP.PCM.PN ---
Subjective - Date & Time of Evaluation Date of Evaluation: 06/02/16 Time of Evaluation: 08:45 - Subjective Subjective: FEELS BETTER AND NO SOB TODAY Objective - Vital Signs/Intake and Output Vital Signs (last 24 hours): Temp Pulse Resp BP Pulse Ox 98.4 F 135 H 20 105/67 95 06/02/16 07:53 06/02/16 07:53 06/02/16 07:53 06/02/16 07:53 06/02/16 07:53 - Medications Medications: Current Medications Vancomycin HCl 1 gm/ Sodium (Chloride) 250 mls @ 166.667 mls/hr IVPB Q12H [facility] Last Admin: 06/02/16 01:44 Dose: 166.667 mls/hr Piperacillin Sod/Tazobactam (Sod 3.375 gm/ Sodium Chloride) 100 mls @ 100 mls/ hr IVPB Q8H [facility] Last Admin: 06/02/16 05:15 Dose: 100 mls/hr Spironolactone (Aldactone) 50 mg PO DAILY [facility] Last Admin: 06/02/16 09:01 Dose: 50 mg - Labs Labs: 06/02/16 05:25 06/02/16 05:25 PT 19.4 SECONDS (9.6-11.2) H 06/01/16 05:35 INR 1.87 (0.92-1.08) H 06/01/16 05:35 - Respiratory Exam Respiratory Exam: Clear to Ausculation Bilateral - Cardiovascular Exam Cardiovascular Exam: REGULAR RHYTHM, +S1, +S2 - Extremities Exam Extremities Exam: Pedal Edema Assessment and Plan - Assessment and Plan (Free Text) Assessment: LIVER CIRRHOSIS AND PORTAL HYPERTENSION ARTERIAL HYPERTENSION Plan: CONTINUE SPIRONOLACTONE AND ANTIBIOTICS NA AND FLUID RESTRICTION
--- NOTE | 2016-06-02 14:45 | US ---
Date of Procedure: 06/01/2016 PROCEDURE: Ultrasound-guided paracentesis, CPT 15026 Medications: 1% Lidocaine HISTORY: Ascites, abdominal pain TECHNIQUE: Following informed consent , the patient was placed supine on the stretcher and the site was marked. A limited abdominal ultrasound was performed that showed a large amount of intra-abdominal fluid. Procedural time out was called and the Pt's abdomen was marked and prepped and draped in the usual sterile fashion. Ultrasound-guided large volume paracentesis performed. A total of 4.6 liters of straw colored fluid was removed without complication. Fluid specimen was sent for culture, sensitivity, cytology and chemistries. IMPRESSION: Ultrasound-guided large volume paracentesis.
--- NOTE | 2016-06-02 18:26 | CARD ---
APPROVED REPORT EXAM: Two-dimensional and M-mode echocardiogram with Doppler and color Doppler. Other Information Quality : AverageRhythm : NSR INDICATION Dyspnea 2D DIMENSIONS IVSd1.40 (0.7-1.1cm)LVDd4.59 (3.9-5.9cm) LVOT Diameter2.09 (1.8-2.4cm)PWd0.90 (0.7-1.1cm) IVSs1.58 (0.8-1.2cm)LVDs3.07 (2.5-4.0cm) FS (%) 33.2 %PWs1.37 (0.8-1.2cm) M-Mode DIMENSIONS Left Atrium (MM)3.16 (2.5-4.0cm)IVSd1.13 (0.7-1.1cm) Aortic Root3.88 (2.2-3.7cm)LVDd5.66 (4.0-5.6cm) Aortic Cusp Exc.1.78 (1.5-2.0cm)PWd0.94 (0.7-1.1cm) IVSs1.94 cmFS (%) 49 % LVDs2.88 (2.0-3.8cm)PWs1.84 cm Aortic Valve AoV Peak Ymouydbm172.6cm/sAoV VTI44.4cmAO Peak GR.18mmHg LVOT Peak Ihmhajqu938.5cm/sLVOT VTI26.26cmAO Mean GR.11mmHg MAYDA (VMAX)0.24za3PAO (VTI)0.87cm2 Mitral Valve MV E Ecfugfss62.9cm/sMV DECEL [id number] A Crrwzjra11.1cm/s MV LCG36qfR/A ratio0.9MVA (PHT)4.41cm2 TDI Lateral E' Peak V13.93cm/sMedial E' Peak V11.81cm/sE/Lateral E'5.3 E/Medial E'6.3 Pulmonary Valve PV Peak Yyzblcdm363.0cm/s Tricuspid Valve TR Peak Zncxueib646tn/sRAP [id number] Peak Gr.18mmHg [id number] LEFT VENTRICLE The left ventricle is normal size. There is normal left ventricular wall thickness. The left ventricular function is normal. The left ventricular ejection fraction is 60-65% There is normal LV segmental wall motion. Transmitral Doppler flow pattern is Grade I-abnormal relaxation pattern. No left ventricle thrombus noted on this study. There is no ventricular septal defect visualized. There is no left ventricular aneurysm. There is no mass noted in the left ventricle. RIGHT VENTRICLE The right ventricle is normal size. There is normal right ventricular wall thickness. The right ventricular systolic function is normal. ATRIA The left atrium size is normal. The right atrium size is normal. The interatrial septum is intact with no evidence for an atrial septal defect. AORTIC VALVE The aortic valve is moderately to severely calcified. No aortic regurgitation is present. There is mild valvular aortic stenosis. Calculated aortic valve area is 1.6 cm2 with maximum pressure gradient of18 mmHg There is no aortic valvular vegetation. MITRAL VALVE The mitral valve is normal in structure and function. There is no evidence of mitral valve prolapse. There is no mitral valve stenosis. There is no mitral valve regurgitation noted. TRICUSPID VALVE The tricuspid valve is normal in structure and function. There is no tricuspid valve regurgitation noted. There is no tricuspid valve prolapse or vegetation. There is no tricuspid valve stenosis. PULMONIC VALVE The pulmonary valve is normal in structure and function. There is no pulmonic valvular regurgitation. There is no pulmonic valvular stenosis. GREAT VESSELS The aortic root is normal in size. The ascending aorta is normal in size. The IVC is normal in size and collapses >50% with inspiration. PERICARDIAL EFFUSION The pericardium appears normal. There is no pleural effusion. <Conclusion> Normal LV Systolic Function Mild Aortic Stenosis MAYDA 1.6cm2 Impaired Diastolic Relaxation
--- NOTE | 2016-06-02 21:34 | CP.PCM.PN ---
Subjective - Date & Time of Evaluation Date of Evaluation: 06/02/16 Time of Evaluation: 22:22 - Subjective Subjective: Above noted Objective - Vital Signs/Intake and Output Vital Signs (last 24 hours): Temp Pulse Resp BP Pulse Ox 98.4 F 114 H 20 96/58 L 97 06/02/16 16:26 06/02/16 16:26 06/02/16 16:26 06/02/16 16:26 06/02/16 16:26 - Medications Medications: Current Medications Vancomycin HCl 1 gm/ Sodium (Chloride) 250 mls @ 166.667 mls/hr IVPB Q12H [facility] Last Admin: 06/02/16 12:55 Dose: 166.667 mls/hr Piperacillin Sod/Tazobactam (Sod 3.375 gm/ Sodium Chloride) 100 mls @ 100 mls/ hr IVPB Q8H [facility] Last Admin: 06/02/16 21:25 Dose: 100 mls/hr Spironolactone (Aldactone) 50 mg PO DAILY [facility] Last Admin: 06/02/16 09:01 Dose: 50 mg - Labs Labs: 06/02/16 05:25 06/02/16 05:25 PT 19.4 SECONDS (9.6-11.2) H 06/01/16 05:35 INR 1.87 (0.92-1.08) H 06/01/16 05:35 Assessment and Plan - Assessment and Plan (Free Text) Assessment: Staph coag neg PNA FISH Zosyn Vanco Cirrhosis Hepatosplenomegaly Portal HTN ascites etiol?? s/p paracentesis Aldactone cultures GI consult appreciated
[2016-06-02] MEDS ORDERED: Digoxin 250 mcg (0.25 mg) Tab PO ONE (23:28)
[2016-06-03] MEDS: Piperacillin/Tazobact 3.375 GM in Sodium Chloride 0.9% 100 ML IVPB SCH (05:00)
--- NOTE | 2016-06-03 08:57 | CP.PCM.PN ---
Subjective - Date & Time of Evaluation Date of Evaluation: 06/03/16 Time of Evaluation: 08:30 - Subjective Subjective: THE PATIENT WENT INTO ATRIAL FIBRILLATION LAST NIGHT AND WAS TRANSFERRED TO ON TELEMETRY NO CHEST PAIN, PALPITATIONS OR SOB Objective - Vital Signs/Intake and Output Vital Signs (last 24 hours): Temp Pulse Resp BP Pulse Ox 97.4 F L 123 H 18 113/63 99 06/03/16 08:11 06/03/16 08:11 06/03/16 08:11 06/03/16 08:11 06/03/16 08:11 - Medications Medications: Current Medications Digoxin (Lanoxin) 0.25 mg PO DAILY [facility] Vancomycin HCl 1 gm/ Sodium (Chloride) 250 mls @ 166.667 mls/hr IVPB Q12H [facility] Last Admin: 06/03/16 01:57 Dose: 166.667 mls/hr Piperacillin Sod/Tazobactam (Sod 3.375 gm/ Sodium Chloride) 100 mls @ 100 mls/ hr IVPB Q8H [facility] Last Admin: 06/03/16 05:00 Dose: 100 mls/hr Spironolactone (Aldactone) 50 mg PO DAILY [facility] Last Admin: 06/02/16 09:01 Dose: 50 mg - Labs Labs: 06/02/16 05:25 06/02/16 05:25 PT 19.4 SECONDS (9.6-11.2) H 06/01/16 05:35 INR 1.87 (0.92-1.08) H 06/01/16 05:35 - Respiratory Exam Respiratory Exam: Clear to Ausculation Bilateral - Cardiovascular Exam Cardiovascular Exam: Irregular Rhythm, +S1, +S2 - Extremities Exam Extremities Exam: Pedal Edema - Additional Findings Additional findings: EKG LAST NIGHT ATRIAL FIBRILLATION WITH RVR 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
[2016-06-03] MEDS: Digoxin 250 mcg (0.25 mg) Tab PO SCH (09:36)
[2016-06-03] MEDS: Enoxaparin 40 mg Syringe SC SCH (09:37)
[2016-06-03] MEDS: Piperacillin/Tazobact 3.375 GM in Sodium Chloride 0.9% 50 ML IVPB SCH ×2 (09:45→17:14)
[2016-06-03] MEDS ORDERED: Digoxin 250 mcg (0.25 mg) Tab PO ONE ×2 (12:00→18:00)
[2016-06-03 14:04] LABS: ALB/GLOB RATIO 0.4 (1.0-2.1); ALKALINE PHOSPHATASE 99 U/L (38-126); ALT/SGPT 33 U/L (21-72); AST/SGOT 56 U/L (17-59); BLOOD UREA NITROGEN 15 mg/dl (9-20); CALCIUM 7.4 mg/dL (8.4-10.2); CARBON DIOXIDE 23 mmol/L (22-30); CHLORIDE 109 mmol/L (98-107); GFR AFRICAN-AMERICAN > 60; GLUCOSE,RANDOM 127 mg/dL (75-110); POTASSIUM 4.2 MMOL/L (3.6-5.0); SODIUM 138 mmol/l (132-148); TOTAL PROTEIN 7.3 G/DL (6.3-8.2)
--- NOTE | 2016-06-03 14:20 | CP.PCM.PN ---
Subjective - Date & Time of Evaluation Date of Evaluation: 06/03/16 Time of Evaluation: 07:00 - Subjective Subjective: recent events noted s/p CSW for afib cardiology on board grew coag neg staph in blood ascites fluid neg consider KOFI Objective - Vital Signs/Intake and Output Vital Signs (last 24 hours): Temp Pulse Resp BP Pulse Ox 97.9 F 125 H 18 108/63 95 06/03/16 12:00 06/03/16 12:00 06/03/16 12:00 06/03/16 12:00 06/03/16 12:00 - Medications Medications: Current Medications Aspirin (Ecotrin) 81 mg PO DAILY [facility] Last Admin: 06/03/16 09:37 Dose: 81 mg Digoxin (Lanoxin) 0.25 mg PO DAILY [facility] Last Admin: 06/03/16 09:36 Dose: 0.25 mg Enoxaparin Sodium (Lovenox) 40 mg SC DAILY [facility] PRN Reason: Protocol Last Admin: 06/03/16 09:37 Dose: 40 mg Vancomycin HCl 1 gm/ Sodium (Chloride) 250 mls @ 166.667 mls/hr IVPB Q12H [facility] Last Admin: 06/03/16 13:45 Dose: 166.667 mls/hr Piperacillin Sod/Tazobactam (Sod 3.375 gm/ Sodium Chloride) 50 mls @ 50 mls/hr IVPB Q8H [facility] Last Admin: 06/03/16 09:45 Dose: 50 mls/hr Spironolactone (Aldactone) 50 mg PO DAILY [facility] Last Admin: 06/03/16 09:36 Dose: 50 mg - Labs Labs: 06/02/16 05:25 06/03/16 13:41 PT 19.4 SECONDS (9.6-11.2) H 06/01/16 05:35 INR 1.87 (0.92-1.08) H 06/01/16 05:35 - Constitutional Appears: Non-toxic, Chronically Ill - Head Exam Head Exam: NORMOCEPHALIC - Eye Exam Eye Exam: absent: Scleral icterus - Neck Exam Neck Exam: absent: Lymphadenopathy - Respiratory Exam Respiratory Exam: Decreased Breath Sounds, Rales - Cardiovascular Exam Cardiovascular Exam: Tachycardia, Irregular Rhythm, REGULAR RHYTHM, +S1, +S2 - GI/Abdominal Exam GI & Abdominal Exam: Distended, Soft. absent: Tenderness - Rectal Exam Rectal Exam: Deferred - Extremities Exam Extremities Exam: absent: Pedal Edema - Back Exam Back Exam: absent: CVA tenderness (L), CVA tenderness (R) - Neurological Exam Neurological Exam: Alert, Awake, Oriented x3 - Psychiatric Exam Psychiatric exam: Normal Mood - Skin Skin Exam: Dry Assessment and Plan (1) Abdominal distension Status: Acute (2) Cirrhosis of liver with ascites Status: Acute (3) Bacteremia Status: Acute - Assessment and Plan (Free Text) Assessment: bacteremia sepsis ascites cirrhosis - idiopathic? new onset a fib cont iv rx consider kofi may need liver bx / egd/ colonoscopy
--- NOTE | 2016-06-03 14:39 | CP.PCM.PN ---
Subjective - Date & Time of Evaluation Date of Evaluation: 06/03/16 Time of Evaluation: 09:00 - Subjective Subjective: Patient w/o complaint. Developed a fib yesterday and being treated by cardiology Objective - Vital Signs/Intake and Output Vital Signs (last 24 hours): Temp Pulse Resp BP Pulse Ox 97.9 F 125 H 18 108/63 95 06/03/16 12:00 06/03/16 12:00 06/03/16 12:00 06/03/16 12:00 06/03/16 12:00 - Medications Medications: Current Medications Aspirin (Ecotrin) 81 mg PO DAILY [facility] Last Admin: 06/03/16 09:37 Dose: 81 mg Digoxin (Lanoxin) 0.25 mg PO DAILY [facility] Last Admin: 06/03/16 09:36 Dose: 0.25 mg Enoxaparin Sodium (Lovenox) 40 mg SC DAILY [facility] PRN Reason: Protocol Last Admin: 06/03/16 09:37 Dose: 40 mg Vancomycin HCl 1 gm/ Sodium (Chloride) 250 mls @ 166.667 mls/hr IVPB Q12H [facility] Last Admin: 06/03/16 13:45 Dose: 166.667 mls/hr Piperacillin Sod/Tazobactam (Sod 3.375 gm/ Sodium Chloride) 50 mls @ 50 mls/hr IVPB Q8H [facility] Last Admin: 06/03/16 09:45 Dose: 50 mls/hr Spironolactone (Aldactone) 50 mg PO DAILY [facility] Last Admin: 06/03/16 09:36 Dose: 50 mg - Labs Labs: 06/02/16 05:25 06/03/16 13:41 PT 19.4 SECONDS (9.6-11.2) H 06/01/16 05:35 INR 1.87 (0.92-1.08) H 06/01/16 05:35 - Head Exam Head Exam: NORMAL INSPECTION - Eye Exam Pupil Exam: PERRL - Neck Exam Neck Exam: Full ROM - Respiratory Exam Respiratory Exam: Clear to Ausculation Bilateral - Cardiovascular Exam Cardiovascular Exam: Irregular Rhythm, REGULAR RHYTHM - GI/Abdominal Exam GI & Abdominal Exam: Distended, Normal Bowel Sounds Assessment and Plan (1) Abdominal distension Assessment & Plan: Patient with cirrhosis, ascites, and now afib. Ability to incease diuretics limited by relatively low BPs. Afib being managed by cardiology. Status: Acute
--- NOTE | 2016-06-03 19:38 | CP.PCM.PN ---
Subjective - Date & Time of Evaluation Date of Evaluation: 06/03/16 Time of Evaluation: 22:22 - Subjective Subjective: A-fib Objective - Vital Signs/Intake and Output Vital Signs (last 24 hours): Temp Pulse Resp BP Pulse Ox 98.0 F 112 H 20 120/70 98 06/03/16 19:21 06/03/16 19:21 06/03/16 19:21 06/03/16 19:21 06/03/16 19:21 - Medications Medications: Current Medications Aspirin (Ecotrin) 81 mg PO DAILY [facility] Last Admin: 06/03/16 09:37 Dose: 81 mg Digoxin (Lanoxin) 0.25 mg PO DAILY [facility] Last Admin: 06/03/16 09:36 Dose: 0.25 mg Enoxaparin Sodium (Lovenox) 40 mg SC DAILY [facility] PRN Reason: Protocol Last Admin: 06/03/16 09:37 Dose: 40 mg Vancomycin HCl 1 gm/ Sodium (Chloride) 250 mls @ 166.667 mls/hr IVPB Q12H [facility] Last Admin: 06/03/16 13:45 Dose: 166.667 mls/hr Piperacillin Sod/Tazobactam (Sod 3.375 gm/ Sodium Chloride) 50 mls @ 50 mls/hr IVPB Q8H [facility] Last Admin: 06/03/16 17:14 Dose: 50 mls/hr Spironolactone (Aldactone) 50 mg PO DAILY [facility] Last Admin: 06/03/16 09:36 Dose: 50 mg - Labs Labs: 06/02/16 05:25 06/03/16 13:41 PT 19.4 SECONDS (9.6-11.2) H 06/01/16 05:35 INR 1.87 (0.92-1.08) H 06/01/16 05:35 - Respiratory Exam Respiratory Exam: NORMAL BREATHING PATTERN - Cardiovascular Exam Cardiovascular Exam: REGULAR RHYTHM - GI/Abdominal Exam GI & Abdominal Exam: Normal Bowel Sounds Assessment and Plan - Assessment and Plan (Free Text) Assessment: A-fib with RVR rate controlled Dig INR 1.87 Cardioloogy Staph coag neg PNA FISH Zosyn Vanco Cirrhosis Hepatosplenomegaly Portal HTN ascites etiol?? Pancytopenia Low prot/alb s/p paracentesis Aldactone cultures GI consult appreciated
[2016-06-04] MEDS: Piperacillin/Tazobact 3.375 GM in Sodium Chloride 0.9% 50 ML IVPB SCH ×2 (00:58→08:37)
[2016-06-04 06:42] LABS: HEMATOCRIT 32.7 % (35.0-51.0); MEAN CELL VOLUME 99.5 fl (80.0-94.0); MEAN CORPUSCULAR HGB CONC 34.1 g/dL (33.0-37.0); RED CELL DISTRIBUTION WIDTH 15.4 % (11.5-14.5); WHITE BLOOD COUNT 8.9 K/uL (4.8-10.8)
[2016-06-04] MEDS: Enoxaparin 40 mg Syringe SC SCH (08:38)
[2016-06-04] MEDS: Digoxin 250 mcg (0.25 mg) Tab PO SCH (08:39)
[2016-06-04] MEDS: Piperacillin/Tazobact 3.375 GM in Sodium Chloride 0.9% 100 ML IVPB SCH ×2 (10:26→16:29)
--- NOTE | 2016-06-04 23:52 | CP.PCM.PN ---
Subjective - Date & Time of Evaluation Date of Evaluation: 06/04/16 Time of Evaluation: 22:22 - Subjective Subjective: HR controlled Objective - Vital Signs/Intake and Output Vital Signs (last 24 hours): Temp Pulse Resp BP Pulse Ox 97.8 F 103 H 20 129/67 98 06/04/16 19:43 06/04/16 19:43 06/04/16 19:43 06/04/16 19:43 06/04/16 19:43 - Medications Medications: Current Medications Aspirin (Ecotrin) 81 mg PO DAILY [facility] Last Admin: 06/04/16 08:39 Dose: 81 mg Digoxin (Lanoxin) 0.25 mg PO DAILY [facility] Last Admin: 06/04/16 08:39 Dose: 0.25 mg Enoxaparin Sodium (Lovenox) 40 mg SC DAILY [facility] PRN Reason: Protocol Last Admin: 06/04/16 08:38 Dose: 40 mg Piperacillin Sod/Tazobactam (Sod 3.375 gm/ Sodium Chloride) 100 mls @ 100 mls/ hr IVPB Q8H [facility] Last Admin: 06/04/16 16:29 Dose: 100 mls/hr Vancomycin HCl 1 gm/ Sodium (Chloride) 250 mls @ 166.667 mls/hr IVPB DAILY [facility] Spironolactone (Aldactone) 50 mg PO DAILY [facility] Last Admin: 06/04/16 08:39 Dose: 50 mg - Labs Labs: 06/04/16 06:02 06/03/16 13:41 PT 19.4 SECONDS (9.6-11.2) H 06/01/16 05:35 INR 1.87 (0.92-1.08) H 06/01/16 05:35 - Respiratory Exam Respiratory Exam: NORMAL BREATHING PATTERN - Cardiovascular Exam Cardiovascular Exam: Irregular Rhythm - GI/Abdominal Exam GI & Abdominal Exam: Normal Bowel Sounds Assessment and Plan - Assessment and Plan (Free Text) Assessment: A-fib/RVR now VR rate controlled Dig INR 1.87 Cardiology Staph coag neg PNA FISH Zosyn Vanco Cirrhosis Hepatosplenomegaly Portal HTN ascites etiol?? Pancytopenia Low prot/alb s/p paracentesis Aldactone cultures GI consult appreciated
[2016-06-05] MEDS: Piperacillin/Tazobact 3.375 GM in Sodium Chloride 0.9% 100 ML IVPB SCH ×3 (00:19→16:15)
[2016-06-05] MEDS: Enoxaparin 40 mg Syringe SC SCH (08:14)
[2016-06-05] MEDS: Digoxin 250 mcg (0.25 mg) Tab PO SCH (08:14)
--- NOTE | 2016-06-05 11:42 | CP.PCM.PN ---
Subjective - Date & Time of Evaluation Date of Evaluation: 06/06/19 Time of Evaluation: 10:30 - Subjective Subjective: NO CHEST PAIN, PALPITATIONS OR SOB Objective - Vital Signs/Intake and Output Vital Signs (last 24 hours): Temp Pulse Resp BP Pulse Ox 97.6 F 103 H 20 117/68 97 06/05/16 09:06 06/05/16 09:06 06/05/16 09:06 06/05/16 09:06 06/05/16 09:06 - Medications Medications: Current Medications Aspirin (Ecotrin) 81 mg PO DAILY [facility] Last Admin: 06/05/16 08:14 Dose: 81 mg Digoxin (Lanoxin) 0.25 mg PO DAILY [facility] Last Admin: 06/05/16 08:14 Dose: 0.25 mg Enoxaparin Sodium (Lovenox) 40 mg SC DAILY [facility] PRN Reason: Protocol Last Admin: 06/05/16 08:14 Dose: 40 mg Piperacillin Sod/Tazobactam (Sod 3.375 gm/ Sodium Chloride) 100 mls @ 100 mls/ hr IVPB Q8H [facility] Last Admin: 06/05/16 08:14 Dose: 100 mls/hr Vancomycin HCl 1 gm/ Sodium (Chloride) 250 mls @ 166.667 mls/hr IVPB DAILY [facility] Last Admin: 06/05/16 09:46 Dose: 166.667 mls/hr Spironolactone (Aldactone) 50 mg PO DAILY [facility] Last Admin: 06/05/16 08:14 Dose: 50 mg - Labs Labs: 06/04/16 06:02 06/03/16 13:41 PT 19.4 SECONDS (9.6-11.2) H 06/01/16 05:35 INR 1.87 (0.92-1.08) H 06/01/16 05:35 - Respiratory Exam Respiratory Exam: Clear to Ausculation Bilateral - Cardiovascular Exam Cardiovascular Exam: Irregular Rhythm, +S1, +S2 - Extremities Exam Extremities Exam: Pedal Edema - Additional Findings Additional findings: [employer] ATRIAL FIBRILLATION WITH MVR K+ 4.2 TSH NORMAL Assessment and Plan - Assessment and Plan (Free Text) Assessment: ATRIAL FIBRILLATION DESPITE DIGITALIZATION CIRRHOSIS OF THE LIVER AND PORTAL HYPERTENSION HYPERTENSION HISTORY Plan: CONTINUE DIGOXIN, ALDACTONE AND ANTIBIOTICS WILL BEGIN AMIODARONE IN ATTEMPT TO CONVERT TO SINUS RHYTHM
--- NOTE | 2016-06-05 14:31 | CP.PCM.PN ---
Subjective - Date & Time of Evaluation Date of Evaluation: 06/05/16 Time of Evaluation: 09:00 - Subjective Subjective: AFEBRILE SEEN BY GI AND CARDIO WORK UP IN PROGRESS REPEAT CULTURES NEG ETIO FOR CIRRHOSIS UNCLEAR Objective - Vital Signs/Intake and Output Vital Signs (last 24 hours): Temp Pulse Resp BP Pulse Ox 97.6 F 106 H 18 134/68 98 06/05/16 12:02 06/05/16 12:40 06/05/16 12:02 06/05/16 12:40 06/05/16 12:02 - Medications Medications: Current Medications Amiodarone HCl (Cordarone) 200 mg PO DAILY [facility] Aspirin (Ecotrin) 81 mg PO DAILY [facility] Last Admin: 06/05/16 08:14 Dose: 81 mg Digoxin (Lanoxin) 0.25 mg PO DAILY [facility] Last Admin: 06/05/16 08:14 Dose: 0.25 mg Enoxaparin Sodium (Lovenox) 40 mg SC DAILY [facility] PRN Reason: Protocol Last Admin: 06/05/16 08:14 Dose: 40 mg Piperacillin Sod/Tazobactam (Sod 3.375 gm/ Sodium Chloride) 100 mls @ 100 mls/ hr IVPB Q8H [facility] Last Admin: 06/05/16 08:14 Dose: 100 mls/hr Vancomycin HCl 1 gm/ Sodium (Chloride) 250 mls @ 166.667 mls/hr IVPB DAILY [facility] Last Admin: 06/05/16 09:46 Dose: 166.667 mls/hr Spironolactone (Aldactone) 50 mg PO DAILY [facility] Last Admin: 06/05/16 08:14 Dose: 50 mg - Labs Labs: 06/04/16 06:02 06/03/16 13:41 PT 19.4 SECONDS (9.6-11.2) H 06/01/16 05:35 INR 1.87 (0.92-1.08) H 06/01/16 05:35 - Constitutional Appears: Non-toxic, Chronically Ill - Head Exam Head Exam: NORMOCEPHALIC - Eye Exam Eye Exam: absent: Scleral icterus - ENT Exam ENT Exam: Mucous Membranes Dry, Normal External Ear Exam - Neck Exam Neck Exam: absent: Lymphadenopathy - Respiratory Exam Respiratory Exam: Decreased Breath Sounds - Cardiovascular Exam Cardiovascular Exam: REGULAR RHYTHM - GI/Abdominal Exam GI & Abdominal Exam: Distended, Soft, Diminished Bowel Sounds - Rectal Exam Rectal Exam: Deferred - Exam Exam: NORMAL INSPECTION Assessment and Plan (1) Abdominal distension Status: Acute (2) Cirrhosis of liver with ascites Status: Acute (3) Bacteremia Status: Acute
--- NOTE | 2016-06-05 15:45 | CP.PCM.PN ---
Subjective - Date & Time of Evaluation Date of Evaluation: 06/05/16 Time of Evaluation: 22:22 - Subjective Subjective: Afib with VR Objective - Vital Signs/Intake and Output Vital Signs (last 24 hours): Temp Pulse Resp BP Pulse Ox 97.6 F 106 H 18 134/68 98 06/05/16 12:02 06/05/16 12:40 06/05/16 12:02 06/05/16 12:40 06/05/16 12:02 - Medications Medications: Current Medications Amiodarone HCl (Cordarone) 200 mg PO DAILY [facility] Aspirin (Ecotrin) 81 mg PO DAILY [facility] Last Admin: 06/05/16 08:14 Dose: 81 mg Digoxin (Lanoxin) 0.25 mg PO DAILY [facility] Last Admin: 06/05/16 08:14 Dose: 0.25 mg Enoxaparin Sodium (Lovenox) 40 mg SC DAILY [facility] PRN Reason: Protocol Last Admin: 06/05/16 08:14 Dose: 40 mg Piperacillin Sod/Tazobactam (Sod 3.375 gm/ Sodium Chloride) 100 mls @ 100 mls/ hr IVPB Q8H [facility] Last Admin: 06/05/16 08:14 Dose: 100 mls/hr Vancomycin HCl 1 gm/ Sodium (Chloride) 250 mls @ 166.667 mls/hr IVPB DAILY [facility] Last Admin: 06/05/16 09:46 Dose: 166.667 mls/hr Spironolactone (Aldactone) 50 mg PO DAILY [facility] Last Admin: 06/05/16 08:14 Dose: 50 mg - Labs Labs: 06/04/16 06:02 06/03/16 13:41 PT 19.4 SECONDS (9.6-11.2) H 06/01/16 05:35 INR 1.87 (0.92-1.08) H 06/01/16 05:35 - Respiratory Exam Respiratory Exam: NORMAL BREATHING PATTERN - Cardiovascular Exam Cardiovascular Exam: REGULAR RHYTHM - GI/Abdominal Exam GI & Abdominal Exam: Normal Bowel Sounds Assessment and Plan - Assessment and Plan (Free Text) Assessment: A-fib/RVR now VR rate controlled Dig Amiodorone started INR 1.87 Cardiology Staph coag neg PNA FISH Zosyn Vanco Cirrhosis Hepatosplenomegaly Portal HTN ascites etiol?? Pancytopenia Low prot/alb s/p paracentesis Aldactone GI
[2016-06-06] MEDS: Piperacillin/Tazobact 3.375 GM in Sodium Chloride 0.9% 100 ML IVPB SCH ×3 (00:42→17:10)
[2016-06-06] MEDS: Digoxin 250 mcg (0.25 mg) Tab PO SCH (08:54)
[2016-06-06] MEDS: Enoxaparin 40 mg Syringe SC SCH (08:55)
[2016-06-06 08:58] VITALS: PULSE 82
--- NOTE | 2016-06-06 09:20 | CP.PCM.PN ---
Subjective - Date & Time of Evaluation Date of Evaluation: 06/06/16 Time of Evaluation: 08:00 - Subjective Subjective: NO CHEST PAIN, PALPITATIONS OR SOB Objective - Vital Signs/Intake and Output Vital Signs (last 24 hours): Temp Pulse Resp BP Pulse Ox 98.2 F 82 20 111/60 98 06/06/16 08:00 06/06/16 08:55 06/06/16 08:00 06/06/16 08:00 06/06/16 08:00 - Medications Medications: Current Medications Amiodarone HCl (Cordarone) 200 mg PO DAILY [facility] Last Admin: 06/06/16 08:55 Dose: 200 mg Aspirin (Ecotrin) 81 mg PO DAILY [facility] Last Admin: 06/06/16 08:54 Dose: 81 mg Digoxin (Lanoxin) 0.25 mg PO DAILY [facility] Last Admin: 06/06/16 08:54 Dose: 0.25 mg Piperacillin Sod/Tazobactam (Sod 3.375 gm/ Sodium Chloride) 100 mls @ 100 mls/ hr IVPB Q8H [facility] Last Admin: 06/06/16 00:42 Dose: 100 mls/hr Vancomycin HCl 1 gm/ Sodium (Chloride) 250 mls @ 166.667 mls/hr IVPB DAILY [facility] Last Admin: 06/06/16 08:57 Dose: 166.667 mls/hr Spironolactone (Aldactone) 50 mg PO DAILY [facility] Last Admin: 06/06/16 08:55 Dose: 50 mg - Labs Labs: 06/04/16 06:02 06/03/16 13:41 PT 19.4 SECONDS (9.6-11.2) H 06/01/16 05:35 INR 1.87 (0.92-1.08) H 06/01/16 05:35 - Respiratory Exam Respiratory Exam: Clear to Ausculation Bilateral - Cardiovascular Exam Cardiovascular Exam: REGULAR RHYTHM, +S1, +S2 - Extremities Exam Extremities Exam: Pedal Edema - 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
--- NOTE | 2016-06-06 09:46 | CARD ---
APPROVED REPORT EKG Measurement Heart [id number] <Conclusion> Atrial fibrillation with rapid ventricular response Left axis deviation Nonspecific ST and T wave abnormality Abnormal ECG
--- NOTE | 2016-06-06 10:19 | CARD ---
APPROVED REPORT EKG Measurement Heart [id number] <Conclusion> Atrial fibrillation with rapid ventricular response Left axis deviation Inferior infarct, age undetermined Abnormal ECG
--- NOTE | 2016-06-06 17:09 | CARD ---
APPROVED REPORT EKG Measurement Heart [id number] <Conclusion> Atrial fibrillation with rapid ventricular response Left axis deviation Low voltage QRS Abnormal ECG
--- NOTE | 2016-06-06 17:31 | CARD ---
APPROVED REPORT EKG Measurement Heart [id number] <Conclusion> Sinus tachycardia with 1st degree AV block Possible Left atrial enlargement Left axis deviation Possible Lateral infarct, age undetermined Abnormal ECG
--- NOTE | 2016-06-06 19:21 | CP.PCM.PN ---
Subjective - Date & Time of Evaluation Date of Evaluation: 06/06/16 Time of Evaluation: 02:22 - Subjective Subjective: NSR Doing well Objective - Vital Signs/Intake and Output Vital Signs (last 24 hours): Temp Pulse Resp BP Pulse Ox 97.7 F 83 20 112/65 97 06/06/16 17:00 06/06/16 17:00 06/06/16 17:00 06/06/16 17:16 06/06/16 17:00 - Medications Medications: Current Medications Amiodarone HCl (Cordarone) 200 mg PO DAILY [facility] Last Admin: 06/06/16 08:55 Dose: 200 mg Aspirin (Ecotrin) 81 mg PO DAILY [facility] Last Admin: 06/06/16 08:54 Dose: 81 mg Furosemide (Lasix) 40 mg PO DAILY [facility] Last Admin: 06/06/16 17:16 Dose: 40 mg Piperacillin Sod/Tazobactam (Sod 3.375 gm/ Sodium Chloride) 100 mls @ 100 mls/ hr IVPB Q8H [facility] Last Admin: 06/06/16 17:10 Dose: 100 mls/hr Vancomycin HCl 1 gm/ Sodium (Chloride) 250 mls @ 166.667 mls/hr IVPB DAILY [facility] Last Admin: 06/06/16 08:57 Dose: 166.667 mls/hr Spironolactone (Aldactone) 50 mg PO DAILY [facility] Last Admin: 06/06/16 08:55 Dose: 50 mg - Labs Labs: 06/04/16 06:02 06/03/16 13:41 PT 19.4 SECONDS (9.6-11.2) H 06/01/16 05:35 INR 1.87 (0.92-1.08) H 06/01/16 05:35 - Respiratory Exam Respiratory Exam: NORMAL BREATHING PATTERN - Cardiovascular Exam Cardiovascular Exam: REGULAR RHYTHM - GI/Abdominal Exam GI & Abdominal Exam: Normal Bowel Sounds Assessment and Plan - Assessment and Plan (Free Text) Assessment: ] Staph coag neg PNA FISH Zosyn Vanco x 10 days A-fib/RVR now NSR rate controlled Dig Amiodorone started INR 1.87 Cardiology Cirrhosis Hepatosplenomegaly Portal HTN ascites etiol?? Pancytopenia Low prot/alb s/p paracentesis Aldactone GI
--- NOTE | 2016-06-06 22:54 | CP.PCM.PN ---
Subjective - Date & Time of Evaluation Date of Evaluation: 06/06/16 Time of Evaluation: 15:10 - Subjective Subjective: Patient without complaint. Has felt better since parascentesis. Objective - Vital Signs/Intake and Output Vital Signs (last 24 hours): Temp Pulse Resp BP Pulse Ox 97.5 F L 84 20 124/70 96 06/06/16 19:23 06/06/16 19:23 06/06/16 19:23 06/06/16 19:23 06/06/16 19:23 - Medications Medications: Current Medications Amiodarone HCl (Cordarone) 200 mg PO DAILY [facility] Last Admin: 06/06/16 08:55 Dose: 200 mg Aspirin (Ecotrin) 81 mg PO DAILY [facility] Last Admin: 06/06/16 08:54 Dose: 81 mg Furosemide (Lasix) 40 mg PO DAILY [facility] Last Admin: 06/06/16 17:16 Dose: 40 mg Piperacillin Sod/Tazobactam (Sod 3.375 gm/ Sodium Chloride) 100 mls @ 100 mls/ hr IVPB Q8H [facility] Last Admin: 06/06/16 17:10 Dose: 100 mls/hr Vancomycin HCl 1 gm/ Sodium (Chloride) 250 mls @ 166.667 mls/hr IVPB DAILY [facility] Last Admin: 06/06/16 08:57 Dose: 166.667 mls/hr Spironolactone (Aldactone) 50 mg PO DAILY [facility] Last Admin: 06/06/16 08:55 Dose: 50 mg - Labs Labs: 06/04/16 06:02 06/03/16 13:41 PT 19.4 SECONDS (9.6-11.2) H 06/01/16 05:35 INR 1.87 (0.92-1.08) H 06/01/16 05:35 - Head Exam Head Exam: ATRAUMATIC - Eye Exam Eye Exam: Normal appearance - ENT Exam ENT Exam: Normal Exam - Neck Exam Neck Exam: Full ROM - Respiratory Exam Respiratory Exam: NORMAL BREATHING PATTERN - Cardiovascular Exam Cardiovascular Exam: +S1, +S2 - GI/Abdominal Exam GI & Abdominal Exam: Normal Bowel Sounds Assessment and Plan (1) Abdominal distension Assessment & Plan: Ascites c/w transudate as a result of cirrhosis. Etiology of the cirrhosis is unknown. Heart rhythm better controlled . Will add Lasix 40 mg po to Aldactone. Possible upper endoscopy Monday to check for esophageal varices. Status: Acute
[2016-06-07] MEDS: Piperacillin/Tazobact 3.375 GM in Sodium Chloride 0.9% 100 ML IVPB SCH ×3 (01:08→17:28)
[2016-06-07 07:23] LABS: HEMATOCRIT 32.2 % (35.0-51.0); MEAN CORPUSCULAR HEMOGLOBIN 33.6 pg (27.0-31.0); MEAN CORPUSCULAR HGB CONC 33.3 g/dL (33.0-37.0); RED CELL DISTRIBUTION WIDTH 15.5 % (11.5-14.5)
--- NOTE | 2016-06-07 07:23 | CARD ---
APPROVED REPORT EKG Measurement Heart [id number] [id number] <Conclusion> Sinus rhythm with sinus arrhythmia with 1st degree AV block Nonspecific ST and T wave abnormality Abnormal ECG
[2016-06-07 07:43] LABS: BLOOD UREA NITROGEN 15 mg/dl (9-20); CALCIUM 7.2 mg/dL (8.4-10.2); CARBON DIOXIDE 23 mmol/L (22-30); CHLORIDE 111 mmol/L (98-107); GFR AFRICAN-AMERICAN > 60; GLUCOSE,RANDOM 63 mg/dL (75-110); POTASSIUM 4.1 MMOL/L (3.6-5.0); SODIUM 145 mmol/l (132-148)
--- NOTE | 2016-06-07 10:06 | PQF GENQUE ---
Dr. Montoya, (1) In agreement with the diagnosis of Sepsis? (2) Etiology of Sepsis: if known after work up completed (3) POA? OR: Disagree OR: Unable to determine 06/02 attending progress note:Staph coag neg PNA FISH: Tesfaye Leblanc 06/03: ID progress note Assessment: Bacteremia, Sepsis ;grew coag neg staph in blood; ascites fluid neg; consider MEL Pulse:116->102->102->111->92->92->92 WBC:13.6->12.9->10.8:left shift U/A: slighty-cloudy,blood, leuk esterase,microscopic WBC:13,bacteria:rare This form is a permanent part of the medical record Clarification of your documentation is requested to better reflect the severity of illness and intensity of treatment of your patient. Indicators present [] Specify: [] [] Specify: [] [] Specify: [] [] Specify: [] Location in the medical record that reflects the above clinical findings: [] Treatment Provided: [] PHYSICIAN'S RESPONSE Based on your medical judgment of the clinical indicators outlined above please clarify the following: [] Practitioner response [] If unable to determine, please check the box, sign and date. Present On Admission (POA) Indicator: [] Present at the time of admission [] Not present at the time of admission [] Clinically Undetermined In responding to this query, please exercise your independent professional judgment. The fact that a question is asked does not imply that any particular answer is desired or expected. Thank you for your clarification on this documentation. If you have any questions please call. * Thank you, Sheela Kohler RN BSN ext. #[phone] MTDD
--- NOTE | 2016-06-07 11:39 | CP.PCM.PN ---
Subjective - Date & Time of Evaluation Date of Evaluation: 06/07/16 Time of Evaluation: 09:00 - Subjective Subjective: NO CHEST PAIN, PALPITATIONS OR SOB Objective - Vital Signs/Intake and Output Vital Signs (last 24 hours): Temp Pulse Resp BP Pulse Ox 97.8 F 82 18 105/64 95 06/07/16 08:00 06/07/16 09:11 06/07/16 08:00 06/07/16 09:11 06/07/16 08:00 - Medications Medications: Current Medications Amiodarone HCl (Cordarone) 200 mg PO DAILY [facility] Last Admin: 06/07/16 09:11 Dose: 200 mg Aspirin (Ecotrin) 81 mg PO DAILY [facility] Last Admin: 06/06/16 08:54 Dose: 81 mg Furosemide (Lasix) 40 mg PO DAILY [facility] Last Admin: 06/07/16 09:11 Dose: 40 mg Piperacillin Sod/Tazobactam (Sod 3.375 gm/ Sodium Chloride) 100 mls @ 100 mls/ hr IVPB Q8H [facility] Last Admin: 06/07/16 09:13 Dose: 100 mls/hr Vancomycin HCl 1 gm/ Sodium (Chloride) 250 mls @ 166.667 mls/hr IVPB DAILY [facility] Last Admin: 06/07/16 09:13 Dose: 166.667 mls/hr Spironolactone (Aldactone) 50 mg PO DAILY [facility] Last Admin: 06/07/16 09:10 Dose: 50 mg - Labs Labs: 06/07/16 05:30 06/07/16 05:30 PT 19.4 SECONDS (9.6-11.2) H 06/01/16 05:35 INR 1.87 (0.92-1.08) H 06/01/16 05:35 - Respiratory Exam Respiratory Exam: Clear to Ausculation Bilateral - Cardiovascular Exam Cardiovascular Exam: REGULAR RHYTHM, +S1, +S2 - Extremities Exam Extremities Exam: Pedal Edema - 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
--- NOTE | 2016-06-07 14:52 | CP.PCM.PN ---
Subjective - Date & Time of Evaluation Date of Evaluation: 06/07/16 Time of Evaluation: 09:00 - Subjective Subjective: Clinically doing well. No abdominal discomfort or difficulty breathing Objective - Vital Signs/Intake and Output Vital Signs (last 24 hours): Temp Pulse Resp BP Pulse Ox 97.8 F 82 18 105/64 95 06/07/16 08:00 06/07/16 09:11 06/07/16 08:00 06/07/16 09:11 06/07/16 08:00 - Medications Medications: Current Medications Amiodarone HCl (Cordarone) 200 mg PO DAILY [facility] Last Admin: 06/07/16 09:11 Dose: 200 mg Aspirin (Ecotrin) 81 mg PO DAILY [facility] Last Admin: 06/06/16 08:54 Dose: 81 mg Furosemide (Lasix) 40 mg PO DAILY [facility] Last Admin: 06/07/16 09:11 Dose: 40 mg Piperacillin Sod/Tazobactam (Sod 3.375 gm/ Sodium Chloride) 100 mls @ 100 mls/ hr IVPB Q8H [facility] Last Admin: 06/07/16 09:13 Dose: 100 mls/hr Vancomycin HCl 1 gm/ Sodium (Chloride) 250 mls @ 166.667 mls/hr IVPB DAILY [facility] Last Admin: 06/07/16 09:13 Dose: 166.667 mls/hr Spironolactone (Aldactone) 50 mg PO DAILY [facility] Last Admin: 06/07/16 09:10 Dose: 50 mg - Labs Labs: 06/07/16 05:30 06/07/16 05:30 PT 19.4 SECONDS (9.6-11.2) H 06/01/16 05:35 INR 1.87 (0.92-1.08) H 06/01/16 05:35 - Head Exam Head Exam: ATRAUMATIC - Eye Exam Eye Exam: Normal appearance - Neck Exam Neck Exam: Full ROM - Respiratory Exam Respiratory Exam: Clear to Ausculation Bilateral - Cardiovascular Exam Cardiovascular Exam: REGULAR RHYTHM - GI/Abdominal Exam GI & Abdominal Exam: Distended, Soft, Normal Bowel Sounds Assessment and Plan (1) Abdominal distension Assessment & Plan: Ascites under control. Upper endoscopy tomorrow to evaluate for possible varices. As outpatient will need to see Rag Collector to evaluate for possible liver transplant. Status: Acute
--- NOTE | 2016-06-07 21:32 | CP.PCM.PN ---
Subjective - Date & Time of Evaluation Date of Evaluation: 06/07/16 Time of Evaluation: 22:22 - Subjective Subjective: Above noted Objective - Vital Signs/Intake and Output Vital Signs (last 24 hours): Temp Pulse Resp BP Pulse Ox 98.0 F 92 H 18 121/63 96 06/07/16 19:44 06/07/16 19:44 06/07/16 19:44 06/07/16 19:44 06/07/16 19:44 - Medications Medications: Current Medications Amiodarone HCl (Cordarone) 200 mg PO DAILY [facility] Last Admin: 06/07/16 09:11 Dose: 200 mg Aspirin (Ecotrin) 81 mg PO DAILY [facility] Last Admin: 06/06/16 08:54 Dose: 81 mg Furosemide (Lasix) 40 mg PO DAILY [facility] Last Admin: 06/07/16 09:11 Dose: 40 mg Piperacillin Sod/Tazobactam (Sod 3.375 gm/ Sodium Chloride) 100 mls @ 100 mls/ hr IVPB Q8H [facility] Last Admin: 06/07/16 17:28 Dose: 100 mls/hr Vancomycin HCl 1 gm/ Sodium (Chloride) 250 mls @ 166.667 mls/hr IVPB DAILY [facility] Last Admin: 06/07/16 09:13 Dose: 166.667 mls/hr Spironolactone (Aldactone) 50 mg PO DAILY [facility] Last Admin: 06/07/16 09:10 Dose: 50 mg - Labs Labs: 06/07/16 05:30 06/07/16 05:30 PT 19.4 SECONDS (9.6-11.2) H 06/01/16 05:35 INR 1.87 (0.92-1.08) H 06/01/16 05:35 - Respiratory Exam Respiratory Exam: NORMAL BREATHING PATTERN - Cardiovascular Exam Cardiovascular Exam: REGULAR RHYTHM - GI/Abdominal Exam GI & Abdominal Exam: Normal Bowel Sounds Assessment and Plan - Assessment and Plan (Free Text) Assessment: Staph coag neg PNA FISH Zosyn Vanco x 10 days A-fib/RVR now NSR rate controlled Dig Amiodorone started INR 1.87 Cardiology Cirrhosis Hepatosplenomegaly Portal HTN ascites etiol?? Pancytopenia Low prot/alb s/p paracentesis Aldactone GI
[2016-06-08] MEDS: Piperacillin/Tazobact 3.375 GM in Sodium Chloride 0.9% 100 ML IVPB SCH ×2 (01:24→11:05)
[2016-06-08] MEDS ORDERED: Lactated Ringer's 500 ML IV ONE (09:28)
[2016-06-08] MEDS ORDERED: Propofol 10 mg/ml Inj (20 ML) ONE (09:51)
--- NOTE | 2016-06-08 12:50 | CP.PCM.PN ---
Subjective - Date & Time of Evaluation Date of Evaluation: 06/08/16 Time of Evaluation: 11:00 - Subjective Subjective: NO COMPLAINTS Objective - Vital Signs/Intake and Output Vital Signs (last 24 hours): Temp Pulse Resp BP Pulse Ox 97.2 F L 78 19 104/57 L 96 06/08/16 10:43 06/08/16 10:43 06/08/16 10:43 06/08/16 10:43 06/08/16 10:43 Intake and Output: 06/08/16 06/08/16 06:59 18:59 Intake Total 100 Balance 100 - Medications Medications: Current Medications Amiodarone HCl (Cordarone) 200 mg PO DAILY [facility] Last Admin: 06/07/16 09:11 Dose: 200 mg Aspirin (Ecotrin) 81 mg PO DAILY [facility] Last Admin: 06/06/16 08:54 Dose: 81 mg Furosemide (Lasix) 40 mg PO DAILY [facility] Last Admin: 06/07/16 09:11 Dose: 40 mg Piperacillin Sod/Tazobactam (Sod 3.375 gm/ Sodium Chloride) 100 mls @ 100 mls/ hr IVPB Q8H [facility] Last Admin: 06/08/16 11:05 Dose: 100 mls/hr Vancomycin HCl 1 gm/ Sodium (Chloride) 250 mls @ 166.667 mls/hr IVPB DAILY [facility] Last Admin: 06/08/16 12:32 Dose: 166.667 mls/hr Spironolactone (Aldactone) 50 mg PO DAILY [facility] Last Admin: 06/07/16 09:10 Dose: 50 mg - Labs Labs: 06/07/16 05:30 06/07/16 05:30 PT 19.4 SECONDS (9.6-11.2) H 06/01/16 05:35 INR 1.87 (0.92-1.08) H 06/01/16 05:35 - Respiratory Exam Respiratory Exam: Clear to Ausculation Bilateral - Cardiovascular Exam Cardiovascular Exam: REGULAR RHYTHM, +S1, +S2 - Additional Findings Additional findings: 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
[2016-06-08 13:29] VITALS: BP 130/63; PULSE 84; RESP 20; TEMP 97.9; O2SAT 97
--- NOTE | 2016-06-08 20:02 | CP.PCM.PN ---
Subjective - Date & Time of Evaluation Date of Evaluation: 06/08/16 Time of Evaluation: 22:22 - Subjective Subjective: Above noted Objective - Vital Signs/Intake and Output Vital Signs (last 24 hours): Temp Pulse Resp BP Pulse Ox 97.9 F 84 20 130/63 97 06/08/16 13:28 06/08/16 13:28 06/08/16 13:28 06/08/16 13:28 06/08/16 13:28 Intake and Output: 06/08/16 06/09/16 18:59 06:59 Intake Total 100 Balance 100 - Labs Labs: 06/07/16 05:30 06/07/16 05:30 PT 19.4 SECONDS (9.6-11.2) H 06/01/16 05:35 INR 1.87 (0.92-1.08) H 06/01/16 05:35 - Respiratory Exam Respiratory Exam: NORMAL BREATHING PATTERN - Cardiovascular Exam Cardiovascular Exam: REGULAR RHYTHM - GI/Abdominal Exam GI & Abdominal Exam: Normal Bowel Sounds Assessment and Plan - Assessment and Plan (Free Text) Assessment: Staph coag neg PNA FISH Zosyn Vanco x 10 days A-fib/RVR now NSR rate controlled Dig Amiodorone started INR 1.87 Cardiology Cirrhosis Hepatosplenomegaly Portal HTN ascites etiol?? Pancytopenia Low prot/alb s/p paracentesis Aldactone GI Endoscopy Liver transplant?
== END 2016-06-08 15:20 | disposition home or self-care (01) | DRG 872 ==
LOC: H.ER 15:50 → H.ERHOLD 20:59 → H.MEDSURG1 23:44 → H.TEL 06-03 00:28
PROVIDERS: ADMIT Family Medicine Geriatric Medicine; ATTEND Family Medicine Geriatric Medicine
PROC: 0W9G3ZX Drainage of Peritoneal Cavity, Percutaneous Approach, Diagnostic (ICD-10-PCS; principal; 2016-06-01)
PROC: 0DB68ZX Excision of Stomach, Via Natural or Artificial Opening Endoscopic, Diagnostic (ICD-10-PCS; 2016-06-08)
DX: A41.9 Sepsis, unspecified organism (principal); D61.818 Other pancytopenia; I85.10 Secondary esophageal varices without bleeding; R18.8 Other ascites; I48.91 Unspecified atrial fibrillation; K76.6 Portal hypertension; K74.69 Other cirrhosis of liver; K52.89 Other specified noninfective gastroenteritis and colitis; R16.2 Hepatomegaly with splenomegaly, not elsewhere classified; I10 Essential (primary) hypertension; Z87.891 Personal history of nicotine dependence

== ENCOUNTER 2016-06-29 01:15 | Inpatient (IN) | payer MEDICARE, BC ==
[2016-06-29 01:15] VITALS: PULSE 82
--- NOTE | 2016-06-29 01:41 | ED PDOC ---
HPI: Back Time Seen by Provider: 06/29/16 01:20 Chief Complaint (Nursing): Back Pain Chief Complaint (Provider): low back pain History Per: Patient History/Exam Limitations: no limitations Onset/Duration Of Symptoms: Days (1) Current Symptoms Are (Timing): Still Present Quality Of Discomfort: "Pain" Previous Symptoms: None Exacerbating Factor(s): Turning, Movement, Sitting, Standing Additional History Per: Patient Additional Complaint(s): 71 y/o male history of liver cirrhosis, afib, leg edema presents with low back pain x 1 day. Patient states he was walking to bathroom last night and missed the door knob and fell backwards. He notes hitting his head, but denies LOC. He is complaining of pain to right lower back, worse with movement. He states area will randomly "spasm" and cause pain. Denies headache, dizziness, neck pain, numbness/weakness lower extremities, bowel/bladder incontinence, dysuria, hematuria. Past Medical History Reviewed: Historical Data, Nursing Documentation, Vital Signs Vital Signs: Last Vital Signs Temp 98.4 F 06/29/16 01:19 Pulse 95 H 06/29/16 01:19 Resp 16 06/29/16 01:19 BP 122/58 L 06/29/16 01:19 Pulse Ox 97 06/29/16 01:19 - Medical History PMH: HTN Denies: Chronic Kidney Disease - Family History Family History: States: Unknown Family Hx - Home Medications Home Medications: Ambulatory Orders Medication Instructions Recorded Amiodarone [Cordarone] 200 mg PO DAILY #30 tab 06/08/16 Aspirin [Ecotrin] 81 mg PO DAILY #30 tabec 06/08/16 Furosemide [Lasix] 40 mg PO DAILY #30 tab 06/08/16 Spironolactone [Aldactone] 50 mg PO DAILY #30 tab 06/08/16 - Allergies Allergies/Adverse Reactions: Allergies Allergy/AdvReac Type Severity Reaction Status Date / Time No Known Allergies Allergy Verified 05/30/16 15:54 Review of Systems ROS Statement: Except As Marked, All Systems Reviewed And Found Negative Musculoskeletal: Positive for: Back Pain (low) Physical Exam - Reviewed Nursing Documentation Reviewed: Yes Vital Signs Reviewed: Yes - Physical Exam Appears: Positive for: Well, Non-toxic, Uncomfortable Head Exam: Positive for: ATRAUMATIC, NORMAL INSPECTION, NORMOCEPHALIC Skin: Positive for: Normal Color Eye Exam: Positive for: Normal appearance ENT: Positive for: Normal ENT Inspection Cardiovascular/Chest: Positive for: Regular Rate, Rhythm Respiratory: Positive for: Normal Breath Sounds Gastrointestinal/Abdominal: Positive for: Normal Exam, Distended, Asicites Back: Positive for: Decreased ROM (due to pain), Muscle Spasm (right lspine paraspinals). Negative for: L CVA Tenderness, R CVA Tenderness, Vertebral Tenderness Extremity: Positive for: Normal ROM, Swelling (2+ pitting edema b/l LE) Neurologic/Psych: Positive for: Alert, Oriented - Laboratory Results Result Diagrams: 06/29/16 04:26 06/29/16 04:26 - ECG ECG: Positive for: Viewed By Me (reviewed by ED attending) ECG Rhythm: Positive for: Sinus Rhythm O2 Sat by Pulse Oximetry: 97 Pulse Ox Interpretation: Normal - Radiology X-Ray: Viewed By Me X-Ray Interpretation: No Acute Disease - Other Rad xray ls X-Ray: Viewed By Me X-Ray Interpretation: no acute findings - Progress ED Course And Treament: xray lspine, Morphine IM, ibuprofen PO Dr. Warren spoke with Dr. Montoya regarding case; Dr. Montoya agrees to admission if pain unable to be controlled, to be called in am for further orders. On re-eval, patient sleeping. 1:35 Patient awake, states pain slightly improved but still notes random "spasms". Patient unable to stay sitting up due to pain. IV established, Morphine ordered. CT lspine, CT pelvis ordered EXAM: CT Lumbar Spine Without Intravenous Contrast CLINICAL HISTORY: 71 years old, male; Injury or trauma; Fall; Initial encounter; Blunt trauma ( contusions or hematomas); Additional info: Fall, right lower back pain TECHNIQUE: Axial computed tomography images of the lumbar spine without intravenous contrast. This CT exam was performed using one or more of the following dose reduction techniques: automated exposure control, adjustment of the mA and/or kV according to patient size, and/or use of iterative reconstruction technique. Coronal and sagittal reformatted images were created and reviewed. COMPARISON: CR - LS SPINE AP/LAT 06/29/2016 2:00:47 AM FINDINGS: Vertebrae: The vertebral body heights are preserved without evidence for compression deformity. No evidence for acute fractures or subluxations. There is a large Schmorl node present in superior endplate of L3. There is mild to moderate diffuse osteopenia. There is minimal grade 1 anterolisthesis of L3 on L4. Discs/spinal canal/neural foramina: There are multilevel disc bulges most significant at L3-L4 where there is moderate central canal stenosis. There are moderate degenerative spine changes. Soft tissues: Unremarkable. Intraperitoneal space: There is moderate free fluid in the pelvis. This is abnormal although nonspecific. IMPRESSION: 1. The vertebral body heights are preserved without evidence for compression deformity. 2. No evidence for acute fractures or subluxations. 3. There are multilevel disc bulges most significant at L3-L4 where there is moderate central canal stenosis. 4. There is moderate free fluid in the pelvis. This is abnormal although nonspecific. EXAM: CT Pelvis Without Intravenous Contrast CLINICAL HISTORY: 71 years old, male; Injury or trauma; Fall; Initial encounter; Blunt trauma ( contusions or hematomas); Right; Pelvic region; Additional info: Fall, right lower back pain TECHNIQUE: Axial computed tomography images of the pelvis without intravenous contrast. This CT exam was performed using one or more of the following dose reduction techniques: automated exposure control, adjustment of the mA and/or kV according to patient size, and/or use of iterative reconstruction technique. Coronal and sagittal reformatted images were created and reviewed. COMPARISON: CT - ABD PELVIS IV CONTRAST ONLY 05/30/2016 6:10:34 PM FINDINGS: Bones/joints: No acute fractures or subluxations identified in the pelvis or visualized lumbosacral spine. Soft tissues: Unremarkable. Stomach and bowel: There is moderate to severe diverticulosis without definite evidence for acute diverticulitis. Adjacent ascites somewhat limits evaluation. Intraperitoneal space: There is large abdominal pelvic ascites. Bladder: Bladder is decompressed. No stones. Reproductive: Prostate is enlarged measuring 5.6 CM transverse. IMPRESSION: 1. There is large abdominal pelvic ascites. 2. No acute fractures or subluxations identified in the pelvis or visualized lumbosacral spine. 3. There is moderate to severe diverticulosis without definite evidence for acute diverticulitis. Adjacent ascites somewhat limits evaluation. Labs show WBC 17, Potassium 5.8 (nonhemolyzed): Case discussed with ED attending Dr. Warren: EKG, Kayexalate ordered. On re-eval, patient still with pain to right lower back after IV morphine administered. Will admit for intractable back pain. Disposition - Clinical Impression Clinical Impression: Cirrhosis of liver with ascites, Intractable low back pain, Hyperkalemia, Leukocytosis - Patient ED Disposition Is Patient to be Admitted: Yes - Disposition Disposition Time: 05:16 Condition: FAIR
[2016-06-29 04:46] LABS: BASO # 0.1 K/uL (0.0-0.2); BASO % 0.5 % (0.0-2.0); EOS # 0.1 K/uL (0.0-0.7); EOS % 0.7 % (0.0-4.0); HEMATOCRIT 34.5 % (35.0-51.0); LYMPH # 1.6 K/uL (1.0-4.3); LYMPH % 9.3 % (20.0-40.0); MEAN CELL VOLUME 101.6 fl (80.0-94.0); MEAN CORPUSCULAR HEMOGLOBIN 33.8 pg (27.0-31.0); MEAN CORPUSCULAR HGB CONC 33.3 g/dL (33.0-37.0); MEAN PLATELET VOLUME 9.2 fl (7.2-11.7); MONO # 2.1 K/uL (0.0-0.8); MONO % 12.6 % (0.0-10.0); NEUT # 13.2 K/uL (1.8-7.0); NEUT % 76.9 % (50.0-75.0); NRBC % 0.1 % (0.0-0.0); PLATELET COUNT 98 K/uL (130-400); WHITE BLOOD COUNT 17.1 K/uL (4.8-10.8)
--- NOTE | 2016-06-29 04:47 | CT ---
EXAM: CT Lumbar Spine Without Intravenous Contrast CLINICAL HISTORY: 71 years old, male; Injury or trauma; Fall; Initial encounter; Blunt trauma (contusions or hematomas); Additional info: Fall, right lower back pain TECHNIQUE: Axial computed tomography images of the lumbar spine without intravenous contrast. This CT exam was performed using one or more of the following dose reduction techniques: automated exposure control, adjustment of the mA and/or kV according to patient size, and/or use of iterative reconstruction technique. Coronal and sagittal reformatted images were created and reviewed. COMPARISON: CR - LS SPINE AP/LAT 06/29/2016 2:00:47 AM FINDINGS: Vertebrae: The vertebral body heights are preserved without evidence for compression deformity. No evidence for acute fractures or subluxations. There is a large Schmorl node present in superior endplate of L3. There is mild to moderate diffuse osteopenia. There is minimal grade 1 anterolisthesis of L3 on L4. Discs/spinal canal/neural foramina: There are multilevel disc bulges most significant at L3-L4 where there is moderate central canal stenosis. There are moderate degenerative spine changes. Soft tissues: Unremarkable. Intraperitoneal space: There is moderate free fluid in the pelvis. This is abnormal although nonspecific. IMPRESSION: 1. The vertebral body heights are preserved without evidence for compression deformity. 2. No evidence for acute fractures or subluxations. 3. There are multilevel disc bulges most significant at L3-L4 where there is moderate central canal stenosis. 4. There is moderate free fluid in the pelvis. This is abnormal although nonspecific.
--- NOTE | 2016-06-29 04:49 | CT ---
EXAM: CT Pelvis Without Intravenous Contrast CLINICAL HISTORY: 71 years old, male; Injury or trauma; Fall; Initial encounter; Blunt trauma (contusions or hematomas); Right; Pelvic region; Additional info: Fall, right lower back pain TECHNIQUE: Axial computed tomography images of the pelvis without intravenous contrast. This CT exam was performed using one or more of the following dose reduction techniques: automated exposure control, adjustment of the mA and/or kV according to patient size, and/or use of iterative reconstruction technique. Coronal and sagittal reformatted images were created and reviewed. COMPARISON: CT - ABD PELVIS IV CONTRAST ONLY 05/30/2016 6:10:34 PM FINDINGS: Bones/joints: No acute fractures or subluxations identified in the pelvis or visualized lumbosacral spine. Soft tissues: Unremarkable. Stomach and bowel: There is moderate to severe diverticulosis without definite evidence for acute diverticulitis. Adjacent ascites somewhat limits evaluation. Intraperitoneal space: There is large abdominal pelvic ascites. Bladder: Bladder is decompressed. No stones. Reproductive: Prostate is enlarged measuring 5.6 CM transverse. IMPRESSION: 1. There is large abdominal pelvic ascites. 2. No acute fractures or subluxations identified in the pelvis or visualized lumbosacral spine. 3. There is moderate to severe diverticulosis without definite evidence for acute diverticulitis. Adjacent ascites somewhat limits evaluation.
[2016-06-29 04:55] LABS: ALB/GLOB RATIO 0.4 (1.0-2.1); ALKALINE PHOSPHATASE 107 U/L (38-126); ALT/SGPT 17 U/L (21-72); AST/SGOT 52 U/L (17-59); BILIRUBIN,TOTAL 3.2 mg/dl (0.2-1.3); BLOOD UREA NITROGEN 27 mg/dl (9-20); CALCIUM 8.5 mg/dL (8.4-10.2); CARBON DIOXIDE 24 mmol/L (22-30); CHLORIDE 104 mmol/L (98-107); GFR AFRICAN-AMERICAN > 60; GLUCOSE,RANDOM 102 mg/dL (75-110); SODIUM 138 mmol/l (132-148); TOTAL PROTEIN 7.9 G/DL (6.3-8.2)
[2016-06-29 05:01] LABS: POTASSIUM 5.8 MMOL/L (3.6-5.0)
[2016-06-29] MEDS ORDERED: Sod Polystyrene Sulf 15 gm/60 ml Oral Susp PO ONE (05:01)
[2016-06-29 05:39] LABS: NEUTROPHIL 90 % (42-75); TOTAL CELLS COUNTED 100
[2016-06-29] MEDS ORDERED: Sod Polystyrene Sulf 15 gm/60 ml Oral Susp ONE (06:22)
--- NOTE | 2016-06-29 08:42 | RAD ---
HISTORY: admit COMPARISON: 05/30/2016 FINDINGS: LUNGS: No active pulmonary disease. PLEURA: No significant pleural effusion identified, no pneumothorax apparent. CARDIOVASCULAR: Normal. OSSEOUS STRUCTURES: Thoracic spondylosis VISUALIZED UPPER ABDOMEN: Normal. OTHER FINDINGS: The mild a elevated right hemidiaphragm is similar IMPRESSION: No active disease.
--- NOTE | 2016-06-29 08:58 | RAD ---
PROCEDURE: Radiographs of the Lumbar Spine. [place] HISTORY: fall, low back pain right side COMPARISON: No prior. FINDINGS: BONES: Normal alignment. No listhesis. No fracture. Diffuse lumbar spondylosis DISC SPACES: L4-5 and L5-S1 disc space narrowing OTHER FINDINGS: Anterior longitudinal ligamentous ossification at the thoracolumbar junction is noted diffuse inferior lumbar spondylosis right L4-5 subchondral sclerosis and osteophytosis. Prominent gas in multiple small and large bowel loops . IMPRESSION: Thoracolumbar spondylosis and degenerative disc disease with facet hypertrophic arthrosis
[2016-06-29 09:44] LABS: GRANULAR CAST 1 /lpf (0-1); RBC URINE 28 /hpf (0-3); URINE BACTERIA RARE (<OCC); URINE BILIRUBIN NEGATIVE (NEGATIVE); URINE BLOOD SMALL (NEGATIVE); URINE COLOR AMBER (YELLOW); URINE GLUCOSE (UA) NEG (Normal); URINE KETONE NEGATIVE (NEGATIVE); URINE LEUKOCYTE ESTERASE NEG Leu/uL (Negative); URINE PROTEIN 30 mg/dL (NEGATIVE); URINE UROBILINOGEN 0.2-1.0 mg/dL (0.2-1.0); WBC URINE 17 /hpf (0-5)
--- NOTE | 2016-06-29 13:40 | CP.PCM.CON ---
History of Present Illness - History of Present Illness History of Present Illness: 71 y/o male history of liver cirrhosis, afib, leg edema presents with low back pain x 1 day. Referred for ID eval of leukocytosis Has chronic ascites but denies fever or abd pain U/A does show some WBC's Imaging reviewed Patient states he was walking to bathroom last night and missed the door knob and fell backwards. He notes hitting his head, but denies LOC. He is complaining of pain to right lower back, worse with movement. Review of Systems - Constitutional Constitutional: As Per HPI - EENT Eyes: absent: As Per HPI, Blind Spots, Blurred Vision, Change in Vision, Decreased Night Vision, Diplopia, Discharge, Dry Eye, Exophthalmos, Floaters, Irritation, Itchy Eyes, Loss of Peripheral Vision, Pain, Photophobia, Requires Corrective Lenses, Sees Flashes, Spots in Vision, Tunnel Vision, Other Visual Disturbances, Loss of Vision, Other Ears: absent: As Per HPI, Decreased Hearing, Ear Discharge, Ear Pain, Tinnitus, Abnormal Hearing, Disequilibrium, Dizziness, Other Nose/Mouth/Throat: absent: As Per HPI, Epistaxis, Nasal Congestion, Nasal Discharge, Nasal Obstruction, Nasal Trauma, Nose Pain, Post Nasal Drip, Sinus Pain, Sinus Pressure, Bleeding Gums, Change in Voice, Dental Pain, Dry Mouth, Dysphagia, Halitosis, Hoarsness, Lip Swelling, Mouth Lesions, Mouth Pain, Odynophagia, Sore Throat, Throat Swelling, Tongue Swelling, Facial Pain, Neck Pain, Neck Mass, Other - Cardiovascular Cardiovascular: As Per HPI - Respiratory Respiratory: As Per HPI, Cough, Dyspnea. absent: Hemoptysis - Gastrointestinal Gastrointestinal: As Per HPI, Abdominal Pain - Genitourinary Genitourinary: absent: As Per HPI, Change in Urinary Stream, Difficulty Urinating, Dysuria, Flank Pain, Hematuria, Pyuria, Nocturia, Urinary Incontinence, Urinary Frequency, Urinary Hesitance, Urinary Urgency, Voiding Freq/Small Amts, Freq UTI, Hx Renal/Bladder Calculi, Hx /Renal Surgery, Bladder Distension, Other - Musculoskeletal Musculoskeletal: absent: As Per HPI, Abnormal Gait, Arthralgias, Atrophy, Back Pain, Deformity, Joint Swelling, Limited Range of Motion, Loss of Height, Muscle Cramps, Muscle Weakness, Myalgias, Neck Pain, Numbness, Radiating Pain into Limb, Stiffness, Tingling, Other - Integumentary Integumentary: absent: As Per HPI, Acne, Alopecia, Bleeding Lesions, Change in Hair, Change in Nails, Change in Pigmentation, Changing Lesions, Dry Skin, Erythema, Furuncle, Hirsutism, Lesions, New Lesions, Non-Healing Lesions, Photosensitivity, Pruritus, Rash, Skin Pain, Skin Ulcer, Sores, Striae, Swelling , Unusual Bruising, Wounds, Jaundice, Other - Neurological Neurological: As Per HPI, Abnormal Gait, Frequent Falls - Psychiatric Psychiatric: absent: As Per HPI, Abnormal Sleep Pattern, Anhedonia, Anxiety, Auditory Hallucinations, Behavioral Changes, Change in Appetite, Change in Libido, Confusion, Depression, Difficulty Concentrating, Hallucinations, Homicidal Ideation, Hopelessness, Irritability, Memory Loss, Mood Swings, Panic Attacks, Paranoia, Suicidal Ideation, Visual Hallucinations, Tactile Hallucinations, Other - Endocrine Endocrine: absent: As Per HPI, Change in Body Appearance, Change in Libido, Cold Intolorance, Deepening of Voice, Excessive Sweating, Fatigue, Flushing, Heat Intolorance, Increase in Ring/Shoe/Hat Size, Palpitations, Polydipsia, Polyphagia, Polyuria, Other - Hematologic/Lymphatic Hematologic: absent: As Per HPI, Easy Bleeding, Easy Bruising, Lymphadenopathy, Other Past Patient History - Past Medical History & Family History Past Medical History?: Yes - Past Social History Smoking Status: Never Smoked - CARDIAC Hx Cardiac Disorders: Yes (afib, HTN) - PULMONARY Hx Respiratory Disorders: No - NEUROLOGICAL Hx Neurological Disorder: No - HEENT Hx HEENT Problems: No - RENAL Hx Chronic Kidney Disease: No - ENDOCRINE/METABOLIC Hx Endocrine Disorders: No - HEMATOLOGICAL/ONCOLOGICAL Hx Blood Disorders: No - INTEGUMENTARY Hx Dermatological Problems: No - MUSCULOSKELETAL/RHEUMATOLOGICAL Hx Musculoskeletal Disorders: Yes (arthritis) - GASTROINTESTINAL Hx Gastrointestinal Disorders: No Other/Comment: liver cirrhosis - GENITOURINARY/GYNECOLOGICAL Hx Genitourinary Disorders: No - PSYCHIATRIC Hx Emotional Abuse: No Hx Physical Abuse: No Hx Substance Use: No - SURGICAL HISTORY Hx Surgeries: Yes Other/Comment: 2000 arthroscopic knee surgery - ANESTHESIA Hx Anesthesia: Yes Hx Anesthesia Reactions: No Hx Malignant Hyperthermia: No Meds Allergies/Adverse Reactions: Allergies Allergy/AdvReac Type Severity Reaction Status Date / Time No Known Allergies Allergy Verified 05/30/16 15:54 - Medications Medications: Current Medications Amiodarone HCl (Cordarone) 200 mg PO DAILY [facility] Aspirin (Ecotrin) 81 mg PO DAILY [facility] Furosemide (Lasix) 40 mg PO DAILY [facility] Morphine Sulfate (Morphine) 2 mg IVP Q6 PRN PRN Reason: Pain, severe (8-10) Ondansetron HCl (Zofran Inj) 4 mg IVP Q6 PRN PRN Reason: Nausea/Vomiting Last Admin: 06/29/16 11:32 Dose: 4 mg Physical Exam - Constitutional Appears: Non-toxic, Chronically Ill - Head Exam Head Exam: ATRAUMATIC, NORMAL INSPECTION, NORMOCEPHALIC - Eye Exam Eye Exam: EOMI, PERRL. absent: Scleral icterus - ENT Exam ENT Exam: Mucous Membranes Dry, Normal External Ear Exam - Neck Exam Neck exam: Negative for: Lymphadenopathy, Thyromegaly - Respiratory Exam Respiratory Exam: Decreased Breath Sounds, Rhonchi - Cardiovascular Exam Cardiovascular Exam: REGULAR RHYTHM, +S1, +S2 - GI/Abdominal Exam GI & Abdominal Exam: Diminished Bowel Sounds, Distended, Soft. absent: Guarding , Rebound, Rigid, Tenderness - Rectal Exam Rectal Exam: Deferred - Exam Exam: NORMAL INSPECTION - Extremities Exam Extremities exam: Positive for: pedal edema, pedal pulses present. Negative for : calf tenderness, tenderness - Back Exam Back exam: absent: CVA tenderness (L), CVA tenderness (R) - Neurological Exam Neurological exam: Alert, CN II-XII Intact, Oriented x3, Reflexes Normal - Psychiatric Exam Psychiatric exam: Normal Mood - Skin Skin Exam: Dry Results - Vital Signs Recent Vital Signs: Last Vital Signs Temp 97.3 F L 06/29/16 12:26 Pulse 69 06/29/16 12:26 Resp 18 06/29/16 12:26 BP 101/53 L 06/29/16 12:26 Pulse Ox 97 06/29/16 12:26 - Labs Result Diagrams: 06/29/16 04:26 06/29/16 04:26 Labs: Laboratory Results - last 24 hr 06/29/16 06/29/16 09:22 12:41 Lactic Acid 2.2 H Urine Color Mimi Urine Clarity Cloudy Urine pH 5.0 Ur Specific [place] 1.024 Urine Protein 30 Urine Glucose (UA) Neg Urine Ketones Negative Urine Blood Small Urine Nitrate Negative Urine Bilirubin Negative Urine Urobilinogen 0.2-1.0 Ur Leukocyte Esterase Neg Urine RBC (Auto) 28 H Urine Microscopic WBC 17 H Ur Squamous Epith Cells < 1 Urine Bacteria Rare Hyaline Casts 11-20 H Granular Casts (Auto) 1 Assessment & Plan (1) Cirrhosis of liver with ascites Status: Acute (2) Leukocytosis Status: Acute (3) Abdominal distension Status: Acute - Assessment and Plan (Free Text) Assessment: r/o systemic infection consider paracentesis await cultures cont IV antibiotics
--- NOTE | 2016-06-29 14:18 | CP.PCM.CON ---
History of Present Illness - History of Present Illness History of Present Illness: THE PATIENT IS A 71 YEAR OLD MALE WHO HAS A HISTORY OF HYPERTENSION AND WAS ADMITTED TO [facility] LAST MONTH AND WAS FOUND TO HAVE LIVER CIRRHOSIS WITH ASCITES AND LEG EDEMA. HE WAS ALSO FOUND TO BE IN ATRIAL FIBRILLATION AND CONVERTED TO SINUS RHYTHM WIDTH AMIODARONE. HE NOW FELL ACCIDENTALLY THE OTHER NIGHT AT HOME AND HAVE SEVERE RIGHT BANK PAIN SO HE CAME TO THE ER AND WAS ADMITTED FOR THIS. CARDIOLOGY WAS CALLED TO SEE HIM DUE TO HIS ATRIAL FIBRILLATION HISTORY. HE DENIES CHEST PAIN OR PALPITATIONS. HE DENIES LOC. Past Patient History - Past Medical History & Family History Past Medical History?: Yes - Past Social History Smoking Status: Never Smoked - CARDIAC Hx Cardiac Disorders: Yes (afib, HTN) - PULMONARY Hx Respiratory Disorders: No - NEUROLOGICAL Hx Neurological Disorder: No - HEENT Hx HEENT Problems: No - RENAL Hx Chronic Kidney Disease: No - ENDOCRINE/METABOLIC Hx Endocrine Disorders: No - HEMATOLOGICAL/ONCOLOGICAL Hx Blood Disorders: No - INTEGUMENTARY Hx Dermatological Problems: No - MUSCULOSKELETAL/RHEUMATOLOGICAL Hx Musculoskeletal Disorders: Yes (arthritis) - GASTROINTESTINAL Hx Gastrointestinal Disorders: No Other/Comment: liver cirrhosis - GENITOURINARY/GYNECOLOGICAL Hx Genitourinary Disorders: No - PSYCHIATRIC Hx Emotional Abuse: No Hx Physical Abuse: No Hx Substance Use: No - SURGICAL HISTORY Hx Surgeries: Yes Other/Comment: 2000 arthroscopic knee surgery - ANESTHESIA Hx Anesthesia: Yes Hx Anesthesia Reactions: No Hx Malignant Hyperthermia: No Meds Allergies/Adverse Reactions: Allergies Allergy/AdvReac Type Severity Reaction Status Date / Time No Known Allergies Allergy Verified 05/30/16 15:54 - Medications Medications: Current Medications Amiodarone HCl (Cordarone) 200 mg PO DAILY [facility] Aspirin (Ecotrin) 81 mg PO DAILY [facility] Furosemide (Lasix) 40 mg PO DAILY [facility] Cefazolin Sodium 2 gm/ Sodium (Chloride) 100 mls @ 100 mls/hr IVPB Q8 [facility] Morphine Sulfate (Morphine) 2 mg IVP Q6 PRN PRN Reason: Pain, severe (8-10) Ondansetron HCl (Zofran Inj) 4 mg IVP Q6 PRN PRN Reason: Nausea/Vomiting Last Admin: 06/29/16 11:32 Dose: 4 mg Physical Exam - Respiratory Exam Respiratory Exam: Clear to Auscultation Bilateral - Cardiovascular Exam Cardiovascular Exam: REGULAR RHYTHM, +S1, +S2 - Extremities Exam Extremities exam: Positive for: pedal edema - Additional Findings Additional findings: EKG NSR CXR NAD Results - Vital Signs Recent Vital Signs: Last Vital Signs Temp 97.3 F L 06/29/16 12:26 Pulse 69 06/29/16 12:26 Resp 18 06/29/16 12:26 BP 101/53 L 06/29/16 12:26 Pulse Ox 97 06/29/16 12:26 - Labs Result Diagrams: 06/29/16 04:26 06/29/16 04:26 Labs: Laboratory Results - last 24 hr 06/29/16 06/29/16 09:22 12:41 Lactic Acid 2.2 H Urine Color Mimi Urine Clarity Cloudy Urine pH 5.0 Ur Specific [place] 1.024 Urine Protein 30 Urine Glucose (UA) Neg Urine Ketones Negative Urine Blood Small Urine Nitrate Negative Urine Bilirubin Negative Urine Urobilinogen 0.2-1.0 Ur Leukocyte Esterase Neg Urine RBC (Auto) 28 H Urine Microscopic WBC 17 H Ur Squamous Epith Cells < 1 Urine Bacteria Rare Hyaline Casts 11-20 H Granular Casts (Auto) 1 Assessment & Plan - Assessment and Plan (Free Text) Assessment: FALL WITH BACK INJURY RECENT ATRIAL FIBRILLATION-NOW REMAINS IN SNUS RHYTHM CIRRHOSIS OF THE LIVER Plan: CONTINUE AMIODARONE, ASPIRIN AND FUROSEMIDE
[2016-06-29] MEDS: ceFAZolin 2 GM in Sodium Chloride 0.9% 100 ML IVPB SCH (17:18)
[2016-06-29 18:48] LABS: BLOOD UREA NITROGEN 31 mg/dl (9-20); CALCIUM 8.1 mg/dL (8.4-10.2); CARBON DIOXIDE 23 mmol/L (22-30); CHLORIDE 103 mmol/L (98-107); GFR AFRICAN-AMERICAN > 60; GLUCOSE,RANDOM 129 mg/dL (75-110); SODIUM 138 mmol/l (132-148)
--- NOTE | 2016-06-29 21:27 | CARD ---
APPROVED REPORT EKG Measurement Heart [id number] <Conclusion> Normal sinus rhythm Left anterior fascicular block Possible Lateral infarct, age undetermined Abnormal ECG
--- NOTE | 2016-06-29 21:35 | CP.PCM.HP ---
History of Present Illness - History of Present Illness History of Present Illness: 71 yo with hx cirrhosis ascites Afib admitted for low back pain. In Er found to have Leukoytosis Present on Admission - Present on Admission Any Indicators Present on Admission: No Past Patient History - Past Medical History & Family History Past Medical History?: Yes - Past Social History Smoking Status: Never Smoked - CARDIAC Hx Cardiac Disorders: Yes (afib, HTN) - PULMONARY Hx Respiratory Disorders: No - NEUROLOGICAL Hx Neurological Disorder: No - HEENT Hx HEENT Problems: No - RENAL Hx Chronic Kidney Disease: No - ENDOCRINE/METABOLIC Hx Endocrine Disorders: No - HEMATOLOGICAL/ONCOLOGICAL Hx Blood Disorders: No - INTEGUMENTARY Hx Dermatological Problems: No - MUSCULOSKELETAL/RHEUMATOLOGICAL Hx Musculoskeletal Disorders: Yes (arthritis) - GASTROINTESTINAL Hx Gastrointestinal Disorders: No Other/Comment: liver cirrhosis - GENITOURINARY/GYNECOLOGICAL Hx Genitourinary Disorders: No - PSYCHIATRIC Hx Emotional Abuse: No Hx Physical Abuse: No Hx Substance Use: No - SURGICAL HISTORY Hx Surgeries: Yes Other/Comment: 2000 arthroscopic knee surgery - ANESTHESIA Hx Anesthesia: Yes Hx Anesthesia Reactions: No Hx Malignant Hyperthermia: No Meds Allergies/Adverse Reactions: Allergies Allergy/AdvReac Type Severity Reaction Status Date / Time No Known Allergies Allergy Verified 05/30/16 15:54 Physical Exam - Respiratory Exam Respiratory Exam: NORMAL BREATHING PATTERN - Cardiovascular Exam Cardiovascular Exam: REGULAR RHYTHM - GI/Abdominal Exam GI & Abdominal Exam: Normal Bowel Sounds Results - Vital Signs Recent Vital Signs: Last Vital Signs Temp 97.4 F L 06/29/16 19:26 Pulse 75 06/29/16 19:26 Resp 20 06/29/16 19:26 BP 103/60 06/29/16 19:26 Pulse Ox 94 L 06/29/16 19:26 - Labs Result Diagrams: 06/29/16 04:26 06/29/16 18:27 Labs: Laboratory Results - last 24 hr 06/29/16 06/29/16 06/29/16 09:22 12:41 18:27 Sodium 138 Potassium 5.0 Chloride 103 Carbon Dioxide 23 Anion Gap 17 BUN 31 H Creatinine 1.2 Est GFR ( Amer) > 60 Est GFR (Non-Af Amer) > 60 Random Glucose 129 H Lactic Acid 2.2 H Calcium 8.1 L Urine Color Mimi Urine Clarity Cloudy Urine pH 5.0 Ur Specific [place] 1.024 Urine Protein 30 Urine Glucose (UA) Neg Urine Ketones Negative Urine Blood Small Urine Nitrate Negative Urine Bilirubin Negative Urine Urobilinogen 0.2-1.0 Ur Leukocyte Esterase Neg Urine RBC (Auto) 28 H Urine Microscopic WBC 17 H Ur Squamous Epith Cells < 1 Urine Bacteria Rare Hyaline Casts 11-20 H Granular Casts (Auto) 1 Assessment & Plan - Assessment and Plan (Free Text) Assessment: Infection? etiol? SBP?? Hx Staph coag neg PNA FISH tx with Zosyn Vanco x 10 days ID cultures ABX Cirrhosis Hepatosplenomegaly Portal HTN ascites etiol?? Pancytopenia Low prot/alb s/p paracentesis last admission lasix GI Liver transplant? Hyperkalemia 2 to aldactone? d/c aldactone Kaexylate Nephrology Low back pain etiol? A-fib/ rate controlled Amiodorone INR 1.87 Cardiology - Date & Time Date: 06/29/16 Time: :22
[2016-06-30] MEDS: ceFAZolin 2 GM in Sodium Chloride 0.9% 100 ML IVPB SCH ×3 (00:49→16:46)
--- NOTE | 2016-06-30 08:47 | CP.PCM.PN ---
Subjective - Date & Time of Evaluation Date of Evaluation: 06/30/16 Time of Evaluation: 07:30 - Subjective Subjective: NO CARDIAC COMPLAINTS HAS BACK PAIN Objective - Vital Signs/Intake and Output Vital Signs (last 24 hours): Temp Pulse Resp BP Pulse Ox 97.7 F 73 18 116/55 L 95 06/30/16 05:05 06/30/16 08:28 06/30/16 05:05 06/30/16 08:29 06/30/16 05:05 - Medications Medications: Current Medications Amiodarone HCl (Cordarone) 200 mg PO DAILY [facility] Last Admin: 06/30/16 08:28 Dose: 200 mg Aspirin (Ecotrin) 81 mg PO DAILY [facility] Last Admin: 06/30/16 08:28 Dose: 81 mg Furosemide (Lasix) 40 mg PO DAILY [facility] Last Admin: 06/30/16 08:29 Dose: 40 mg Cefazolin Sodium 2 gm/ Sodium (Chloride) 100 mls @ 100 mls/hr IVPB Q8 [facility] Last Admin: 06/30/16 08:44 Dose: 100 mls/hr Morphine Sulfate (Morphine) 2 mg IVP Q6 PRN PRN Reason: Pain, severe (8-10) Last Admin: 06/30/16 06:21 Dose: 2 mg Ondansetron HCl (Zofran Inj) 4 mg IVP Q6 PRN PRN Reason: Nausea/Vomiting Last Admin: 06/29/16 11:32 Dose: 4 mg - Labs Labs: 06/29/16 18:27 - Respiratory Exam Respiratory Exam: Clear to Ausculation Bilateral - Cardiovascular Exam Cardiovascular Exam: REGULAR RHYTHM, +S1, +S2 - Extremities Exam Extremities Exam: Pedal Edema - Additional Findings 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
--- NOTE | 2016-06-30 10:13 | CP.PCM.CON ---
History of Present Illness - History of Present Illness History of Present Illness: This patient who is 71 years old admitted with increasing swollen of the leg kidney was diagnosed to have liver cirrhosis ascites atrial fibrillation and he was fond to have hyperkalemia and the emergency room and he was given Kayexalate [place]. Previous admission which was elevated over a month ago required to have paracentesis because of the massive ascites. His atrial fibrillation being treated with amiodarone. And it is not clear the etiology of liver cirrhosis ? Patient denied drinking Review of Systems - Constitutional Constitutional: As Per HPI, Weight Gain - EENT Eyes: As Per HPI Nose/Mouth/Throat: absent: Post Nasal Drip, Dysphagia - Cardiovascular Cardiovascular: Dyspnea on Exertion, Edema, Irregular Heart Rhythm, Leg Edema. absent: Chest Pain - Respiratory Respiratory: Dyspnea - Gastrointestinal Gastrointestinal: Bloating. absent: Coffee Ground Emesis, Cramping, Diarrhea, Vomiting - Genitourinary Genitourinary: Nocturia - Musculoskeletal Musculoskeletal: As Per HPI, Muscle Weakness - Neurological Neurological: As Per HPI - Endocrine Endocrine: As Per HPI - Hematologic/Lymphatic Hematologic: absent: Easy Bruising Past Patient History - Past Medical History & Family History Past Medical History?: Yes - Past Social History Smoking Status: Never Smoked - CARDIAC Hx Cardiac Disorders: Yes (afib, HTN) - PULMONARY Hx Respiratory Disorders: No - NEUROLOGICAL Hx Neurological Disorder: No - HEENT Hx HEENT Problems: No - RENAL Hx Chronic Kidney Disease: No - ENDOCRINE/METABOLIC Hx Endocrine Disorders: No - HEMATOLOGICAL/ONCOLOGICAL Hx Blood Disorders: No - INTEGUMENTARY Hx Dermatological Problems: No - MUSCULOSKELETAL/RHEUMATOLOGICAL Hx Musculoskeletal Disorders: Yes (arthritis) - GASTROINTESTINAL Hx Gastrointestinal Disorders: No Other/Comment: liver cirrhosis - GENITOURINARY/GYNECOLOGICAL Hx Genitourinary Disorders: No - PSYCHIATRIC Hx Emotional Abuse: No Hx Physical Abuse: No Hx Substance Use: No - SURGICAL HISTORY Hx Surgeries: Yes Other/Comment: 2000 arthroscopic knee surgery - ANESTHESIA Hx Anesthesia: Yes Hx Anesthesia Reactions: No Hx Malignant Hyperthermia: No Meds Allergies/Adverse Reactions: Allergies Allergy/AdvReac Type Severity Reaction Status Date / Time No Known Allergies Allergy Verified 05/30/16 15:54 - Medications Medications: Current Medications Amiodarone HCl (Cordarone) 200 mg PO DAILY [facility] Last Admin: 06/30/16 08:28 Dose: 200 mg Aspirin (Ecotrin) 81 mg PO DAILY [facility] Last Admin: 06/30/16 08:28 Dose: 81 mg Furosemide (Lasix) 40 mg PO DAILY [facility] Last Admin: 06/30/16 08:29 Dose: 40 mg Cefazolin Sodium 2 gm/ Sodium (Chloride) 100 mls @ 100 mls/hr IVPB Q8 [facility] Last Admin: 06/30/16 08:44 Dose: 100 mls/hr Morphine Sulfate (Morphine) 2 mg IVP Q6 PRN PRN Reason: Pain, severe (8-10) Last Admin: 06/30/16 06:21 Dose: 2 mg Ondansetron HCl (Zofran Inj) 4 mg IVP Q6 PRN PRN Reason: Nausea/Vomiting Last Admin: 06/29/16 11:32 Dose: 4 mg Physical Exam - Constitutional Appears: No Acute Distress - ENT Exam ENT Exam: Mucous Membranes Moist - Respiratory Exam Respiratory Exam: Rhonchi, NORMAL BREATHING PATTERN. absent: Chest Wall Tenderness - Cardiovascular Exam Cardiovascular Exam: Irregular Rhythm. absent: Rubs - GI/Abdominal Exam GI & Abdominal Exam: Diminished Bowel Sounds, Distended, Guarding, Normal Bowel Sounds - Extremities Exam Extremities exam: Negative for: calf tenderness - Back Exam Back exam: absent: CVA tenderness (L), CVA tenderness (R) - Neurological Exam Neurological exam: Alert Results - Vital Signs Recent Vital Signs: Last Vital Signs Temp 98.4 F 06/30/16 08:00 Pulse 73 06/30/16 09:00 Resp 18 06/30/16 08:00 BP 116/55 L 06/30/16 08:29 Pulse Ox 95 06/30/16 08:00 - Labs Result Diagrams: 06/29/16 04:26 06/29/16 18:27 Labs: Laboratory Results - last 24 hr 06/29/16 06/29/16 12:41 18:27 Sodium 138 Potassium 5.0 Chloride 103 Carbon Dioxide 23 Anion Gap 17 BUN 31 H Creatinine 1.2 Est GFR ( Amer) > 60 Est GFR (Non-Af Amer) > 60 Random Glucose 129 H Lactic Acid 2.2 H Calcium 8.1 L Assessment & Plan (1) Cirrhosis of liver with ascites Status: Acute (2) Hyperkalemia Assessment and Plan: Patient admitted with hyperkalemia in the emergency room 5.8 probably from Aldactone which has been discontinue and given one dose of Kayexalate. Continue to monitor potassium and electrolyte Serum creatinine acceptable 1.2 was GFR over 60. Patient has liver cirrhosis in addition to the history of cardiac failure in the past with atrial fibrillation And then massive ascites that he required paracentesis last admission. Status: Acute
[2016-06-30 12:59] LABS: HEMATOCRIT 34.8 % (35.0-51.0); MEAN CELL VOLUME 100.4 fl (80.0-94.0); MEAN CORPUSCULAR HEMOGLOBIN 34.4 pg (27.0-31.0); MEAN CORPUSCULAR HGB CONC 34.3 g/dL (33.0-37.0); RED CELL DISTRIBUTION WIDTH 17.7 % (11.5-14.5); WHITE BLOOD COUNT 18.6 K/uL (4.8-10.8)
[2016-06-30] MEDS: Lidocaine 5% Patch TD SCH (14:24)
[2016-06-30 15:53] LABS: PARTIAL THROMBOPLASTIN TIME 40.2 SECONDS (23.3-32.5)
--- NOTE | 2016-06-30 21:02 | CP.PCM.PN ---
Subjective - Date & Time of Evaluation Date of Evaluation: 06/30/16 Time of Evaluation: 22:22 - Subjective Subjective: above noted WBC 18k Objective - Vital Signs/Intake and Output Vital Signs (last 24 hours): Temp Pulse Resp BP Pulse Ox 97.7 F 83 20 113/57 L 95 06/30/16 19:19 06/30/16 20:31 06/30/16 19:19 06/30/16 19:19 06/30/16 19:19 - Medications Medications: Current Medications Amiodarone HCl (Cordarone) 200 mg PO DAILY [facility] Last Admin: 06/30/16 08:28 Dose: 200 mg Aspirin (Ecotrin) 81 mg PO DAILY [facility] Last Admin: 06/30/16 08:28 Dose: 81 mg Furosemide (Lasix) 40 mg PO DAILY [facility] Last Admin: 06/30/16 08:29 Dose: 40 mg Cefazolin Sodium 2 gm/ Sodium (Chloride) 100 mls @ 100 mls/hr IVPB Q8 [facility] Last Admin: 06/30/16 16:46 Dose: 100 mls/hr Lidocaine (Lidoderm) 1 ea TD DAILY [facility] Last Admin: 06/30/16 14:24 Dose: 1 ea Morphine Sulfate (Morphine) 2 mg IVP Q6 PRN PRN Reason: Pain, severe (8-10) Last Admin: 06/30/16 16:41 Dose: 2 mg Ondansetron HCl (Zofran Inj) 4 mg IVP Q6 PRN PRN Reason: Nausea/Vomiting Last Admin: 06/29/16 11:32 Dose: 4 mg - Labs Labs: 06/30/16 12:46 PT 20.9 SECONDS (9.6-11.2) H 06/30/16 14:30 INR 2.01 (0.92-1.08) H 06/30/16 14:30 APTT 40.2 SECONDS (23.3-32.5) H 06/30/16 14:30 - Respiratory Exam Respiratory Exam: NORMAL BREATHING PATTERN - Cardiovascular Exam Cardiovascular Exam: REGULAR RHYTHM - GI/Abdominal Exam GI & Abdominal Exam: Normal Bowel Sounds Assessment and Plan - Assessment and Plan (Free Text) Assessment: I Infection? etiol? SBP?? Hx Staph coag neg PNA FISH ( tx with Zosyn Vanco x 10 days ) ID cultures ABX Cirrhosis Hepatosplenomegaly Portal HTN ascites etiol?? Pancytopenia Low prot/alb s/p paracentesis last admission lasix GI Liver transplant? Hyperkalemia 2 to aldactone? d/c aldactone Kaexylate Nephrology Low back pain etiol? Physiatry A-fib/ rate controlled Amiodorone INR 2.0 Cardiology
[2016-07-01] MEDS: ceFAZolin 2 GM in Sodium Chloride 0.9% 100 ML IVPB SCH ×3 (00:30→17:02)
[2016-07-01 07:13] LABS: HEMATOCRIT 32.2 % (35.0-51.0); MEAN CELL VOLUME 100.2 fl (80.0-94.0); MEAN CORPUSCULAR HEMOGLOBIN 33.9 pg (27.0-31.0); MEAN CORPUSCULAR HGB CONC 33.9 g/dL (33.0-37.0); RED CELL DISTRIBUTION WIDTH 17.8 % (11.5-14.5); WHITE BLOOD COUNT 13.1 K/uL (4.8-10.8)
[2016-07-01 07:47] LABS: BLOOD UREA NITROGEN 38 mg/dl (9-20); CALCIUM 7.4 mg/dL (8.4-10.2); CARBON DIOXIDE 24 mmol/L (22-30); CHLORIDE 106 mmol/L (98-107); GFR AFRICAN-AMERICAN > 60; GLUCOSE,RANDOM 68 mg/dL (75-110); POTASSIUM 4.6 MMOL/L (3.6-5.0); SODIUM 140 mmol/l (132-148)
[2016-07-01] MEDS: Lidocaine 5% Patch TD SCH (08:37)
--- NOTE | 2016-07-01 09:18 | CP.PCM.PN ---
Subjective - Date & Time of Evaluation Date of Evaluation: 07/01/16 Time of Evaluation: 09:15 - Subjective Subjective: Patient sitting up in bed eating his breakfast Vital sign noted to be stable No chest pain Leg edema noted Objective - Vital Signs/Intake and Output Vital Signs (last 24 hours): Temp Pulse Resp BP Pulse Ox 98.3 F 82 18 121/55 L 91 L 07/01/16 08:00 07/01/16 08:36 07/01/16 08:00 07/01/16 08:36 07/01/16 08:00 - Medications Medications: Current Medications Amiodarone HCl (Cordarone) 200 mg PO DAILY [facility] Last Admin: 07/01/16 08:36 Dose: 200 mg Aspirin (Ecotrin) 81 mg PO DAILY [facility] Last Admin: 07/01/16 08:36 Dose: 81 mg Furosemide (Lasix) 40 mg PO DAILY [facility] Last Admin: 07/01/16 08:36 Dose: 40 mg Cefazolin Sodium 2 gm/ Sodium (Chloride) 100 mls @ 100 mls/hr IVPB Q8 [facility] Last Admin: 07/01/16 00:30 Dose: 100 mls/hr Ceftriaxone Sodium 1 gm/ (Sodium Chloride) 100 mls @ 100 mls/hr IVPB DAILY [facility] Lidocaine (Lidoderm) 1 ea TD DAILY [facility] Last Admin: 07/01/16 08:37 Dose: 1 ea Morphine Sulfate (Morphine) 2 mg IVP Q6 PRN PRN Reason: Pain, severe (8-10) Last Admin: 07/01/16 03:09 Dose: 2 mg Ondansetron HCl (Zofran Inj) 4 mg IVP Q6 PRN PRN Reason: Nausea/Vomiting Last Admin: 06/29/16 11:32 Dose: 4 mg - Labs Labs: 07/01/16 06:45 07/01/16 06:45 PT 20.9 SECONDS (9.6-11.2) H 06/30/16 14:30 INR 2.01 (0.92-1.08) H 06/30/16 14:30 APTT 40.2 SECONDS (23.3-32.5) H 06/30/16 14:30 - Constitutional Appears: No Acute Distress - ENT Exam ENT Exam: Mucous Membranes Moist - Neck Exam Neck Exam: absent: Lymphadenopathy - Respiratory Exam Respiratory Exam: NORMAL BREATHING PATTERN. absent: Chest Wall Tenderness - Cardiovascular Exam Cardiovascular Exam: absent: JVD, Rubs - GI/Abdominal Exam GI & Abdominal Exam: Normal Bowel Sounds. absent: Guarding - Extremities Exam Extremities Exam: Pedal Edema. absent: Calf Tenderness - Back Exam Back Exam: absent: CVA tenderness (L), CVA tenderness (R) - Neurological Exam Neurological Exam: Alert Assessment and Plan (1) Cirrhosis of liver with ascites Status: Acute (2) Hyperkalemia Assessment & Plan: Hyperkalemia corrected Normal kidney function serum creatinine 1.0 electrolyte is okay Liver cirrhosis history etiology not clear Still have leg edema 1-2+ Continue Lasix patient may need to add higher doses perhaps 80 mg alternate was 40 mg Monitor the weight and I electrolyte Status: Acute
[2016-07-01] MEDS ORDERED: Albumin Human 25% (12.5 gm/50 ml) IV ONE (11:25)
--- NOTE | 2016-07-01 11:34 | CP.PCM.CON ---
History of Present Illness - History of Present Illness History of Present Illness: 71 yo male admitted with severe back pain, hyperkalemia, and elevated WBC. Has h /o liver cirrhosis and had been on Aldactone which was stopped. Patient denies abdominal pain. Review of Systems - Constitutional Constitutional: absent: Chills - EENT Eyes: absent: Blind Spots Ears: absent: Ear Pain Nose/Mouth/Throat: absent: Epistaxis - Cardiovascular Cardiovascular: absent: Chest Pain - Respiratory Respiratory: absent: Cough - Gastrointestinal Gastrointestinal: As Per HPI - Genitourinary Genitourinary: absent: Change in Urinary Stream Past Patient History - Past Medical History & Family History Past Medical History?: Yes - Past Social History Smoking Status: Never Smoked - CARDIAC Hx Cardiac Disorders: Yes (afib, HTN) - PULMONARY Hx Respiratory Disorders: No - NEUROLOGICAL Hx Neurological Disorder: No - HEENT Hx HEENT Problems: No - RENAL Hx Chronic Kidney Disease: No - ENDOCRINE/METABOLIC Hx Endocrine Disorders: No - HEMATOLOGICAL/ONCOLOGICAL Hx Blood Disorders: No - INTEGUMENTARY Hx Dermatological Problems: No - MUSCULOSKELETAL/RHEUMATOLOGICAL Hx Musculoskeletal Disorders: Yes (arthritis) - GASTROINTESTINAL Hx Gastrointestinal Disorders: No Other/Comment: liver cirrhosis - GENITOURINARY/GYNECOLOGICAL Hx Genitourinary Disorders: No - PSYCHIATRIC Hx Emotional Abuse: No Hx Physical Abuse: No Hx Substance Use: No - SURGICAL HISTORY Hx Surgeries: Yes Other/Comment: 2000 arthroscopic knee surgery - ANESTHESIA Hx Anesthesia: Yes Hx Anesthesia Reactions: No Hx Malignant Hyperthermia: No Meds Allergies/Adverse Reactions: Allergies Allergy/AdvReac Type Severity Reaction Status Date / Time No Known Allergies Allergy Verified 05/30/16 15:54 - Medications Medications: Current Medications Albumin Human (Albumin Human 25% (12.5 Gm/50 Ml)) 12.5 gm IV ONCE ONE Stop: 07/01/16 11:26 Amiodarone HCl (Cordarone) 200 mg PO DAILY [facility] Last Admin: 07/01/16 08:36 Dose: 200 mg Aspirin (Ecotrin) 81 mg PO DAILY [facility] Last Admin: 07/01/16 08:36 Dose: 81 mg Furosemide (Lasix) 40 mg PO DAILY [facility] Last Admin: 07/01/16 08:36 Dose: 40 mg Cefazolin Sodium 2 gm/ Sodium (Chloride) 100 mls @ 100 mls/hr IVPB Q8 [facility] Last Admin: 07/01/16 10:39 Dose: 100 mls/hr Lidocaine (Lidoderm) 1 ea TD DAILY [facility] Last Admin: 07/01/16 08:37 Dose: 1 ea Morphine Sulfate (Morphine) 2 mg IVP Q6 PRN PRN Reason: Pain, severe (8-10) Last Admin: 07/01/16 03:09 Dose: 2 mg Ondansetron HCl (Zofran Inj) 4 mg IVP Q6 PRN PRN Reason: Nausea/Vomiting Last Admin: 06/29/16 11:32 Dose: 4 mg Physical Exam - Head Exam Head Exam: ATRAUMATIC - Eye Exam Eye Exam: Normal appearance - ENT Exam ENT Exam: Mucous Membranes Moist - Neck Exam Neck exam: Positive for: Normal Inspection - Respiratory Exam Respiratory Exam: Clear to Auscultation Bilateral - Cardiovascular Exam Cardiovascular Exam: REGULAR RHYTHM, +S1, +S2 - GI/Abdominal Exam GI & Abdominal Exam: Distended, Firm, Normal Bowel Sounds Results - Vital Signs Recent Vital Signs: Last Vital Signs Temp 98.3 F 07/01/16 08:00 Pulse 82 07/01/16 08:36 Resp 18 07/01/16 08:00 BP 121/55 L 07/01/16 08:36 Pulse Ox 91 L 07/01/16 08:00 - Labs Result Diagrams: 07/01/16 06:45 07/01/16 06:45 Labs: Laboratory Results - last 24 hr 06/30/16 06/30/16 07/01/16 12:46 14:30 06:45 WBC 18.6 H 13.1 H RBC 3.47 L 3.22 L Hgb 11.9 L 10.9 L Hct 34.8 L 32.2 L MCV 100.4 H 100.2 H MCH 34.4 H 33.9 H MCHC 34.3 33.9 RDW 17.7 H 17.8 H Plt Count 121 L D 108 L PT 20.9 H INR 2.01 H APTT 40.2 H Sodium 140 Potassium 4.6 Chloride 106 Carbon Dioxide 24 Anion Gap 15 BUN 38 H Creatinine 1.0 Est GFR ( Amer) > 60 Est GFR (Non-Af Amer) > 60 Random Glucose 68 L Calcium 7.4 L Assessment & Plan (1) Cirrhosis of liver with ascites Assessment and Plan: Patient WBC better today. Rocephin added for SBP prophylaxis/treatment . Albumin due to rising BUN to prevent hepatorenal syndrome. Hold off on parascentesis for now. Status: Acute
--- NOTE | 2016-07-01 13:41 | CP.PCM.PN ---
Subjective - Date & Time of Evaluation Date of Evaluation: 07/01/16 Time of Evaluation: 13:00 - Subjective Subjective: NO CHEST PAIN OR SOB Objective - Vital Signs/Intake and Output Vital Signs (last 24 hours): Temp Pulse Resp BP Pulse Ox 97.8 F 79 20 116/58 L 95 07/01/16 12:00 07/01/16 12:00 07/01/16 12:00 07/01/16 12:00 07/01/16 12:00 - Medications Medications: Current Medications Amiodarone HCl (Cordarone) 200 mg PO DAILY [facility] Last Admin: 07/01/16 08:36 Dose: 200 mg Aspirin (Ecotrin) 81 mg PO DAILY [facility] Last Admin: 07/01/16 08:36 Dose: 81 mg Furosemide (Lasix) 40 mg PO DAILY [facility] Last Admin: 07/01/16 08:36 Dose: 40 mg Cefazolin Sodium 2 gm/ Sodium (Chloride) 100 mls @ 100 mls/hr IVPB Q8 [facility] Last Admin: 07/01/16 10:39 Dose: 100 mls/hr Lidocaine (Lidoderm) 1 ea TD DAILY [facility] Last Admin: 07/01/16 08:37 Dose: 1 ea Morphine Sulfate (Morphine) 2 mg IVP Q6 PRN PRN Reason: Pain, severe (8-10) Last Admin: 07/01/16 03:09 Dose: 2 mg Ondansetron HCl (Zofran Inj) 4 mg IVP Q6 PRN PRN Reason: Nausea/Vomiting Last Admin: 06/29/16 11:32 Dose: 4 mg - Labs Labs: 07/01/16 06:45 07/01/16 06:45 PT 20.9 SECONDS (9.6-11.2) H 06/30/16 14:30 INR 2.01 (0.92-1.08) H 06/30/16 14:30 APTT 40.2 SECONDS (23.3-32.5) H 06/30/16 14:30 - Respiratory Exam Respiratory Exam: Clear to Ausculation Bilateral - Cardiovascular Exam Cardiovascular Exam: REGULAR RHYTHM - Extremities Exam Extremities Exam: Pedal Edema - Additional Findings Additional findings: [employer] NSR GI NOTE SEEN Assessment and Plan - Assessment and Plan (Free Text) Assessment: S/P ATRIAL FIBRILLATION-NOW IN SINUS RHYTHM CIRRHOSIS OF THE LIVER FALL WITH BACK INJURY Plan: CONTINUE AMIODARONE, ASPIRIN, FUROSEMIDE
--- NOTE | 2016-07-01 16:08 | CP.PCM.CON ---
History of Present Illness - History of Present Illness History of Present Illness: Dr Gonzalez PMR consultation on Martir Montesinos, born 1945 who has been admitted to [facility] after a fall lead to severe LBP. He has not history of LBP and does not take pain medications. Pain is non-radicular in nature. He has no numbness or tingling MS IV has been helpful, but short-acting right hand numbness from IV or blood draws yesterday CT did not show any fracture. 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 WBC initially elevated and felt to have Liver cirrhosis etiology unclear Plts are low Review of Systems - Constitutional Constitutional: absent: Anorexia, Chills - EENT Nose/Mouth/Throat: absent: Nasal Congestion - Cardiovascular Cardiovascular: absent: Chest Pain - Respiratory Respiratory: Dyspnea on Exertion - Gastrointestinal Gastrointestinal: Bloating, Constipation - Musculoskeletal Musculoskeletal: Back Pain Past Patient History - Past Medical History & Family History Past Medical History?: Yes - Past Social History Smoking Status: Never Smoked - CARDIAC Hx Cardiac Disorders: Yes (afib, HTN) - PULMONARY Hx Respiratory Disorders: No - NEUROLOGICAL Hx Neurological Disorder: No - HEENT Hx HEENT Problems: No - RENAL Hx Chronic Kidney Disease: No - ENDOCRINE/METABOLIC Hx Endocrine Disorders: No - HEMATOLOGICAL/ONCOLOGICAL Hx Blood Disorders: No - INTEGUMENTARY Hx Dermatological Problems: No - MUSCULOSKELETAL/RHEUMATOLOGICAL Hx Musculoskeletal Disorders: Yes (arthritis) - GASTROINTESTINAL Hx Gastrointestinal Disorders: No Other/Comment: liver cirrhosis - GENITOURINARY/GYNECOLOGICAL Hx Genitourinary Disorders: No - PSYCHIATRIC Hx Emotional Abuse: No Hx Physical Abuse: No Hx Substance Use: No - SURGICAL HISTORY Hx Surgeries: Yes Other/Comment: 2000 arthroscopic knee surgery - ANESTHESIA Hx Anesthesia: Yes Hx Anesthesia Reactions: No Hx Malignant Hyperthermia: No Meds Allergies/Adverse Reactions: Allergies Allergy/AdvReac Type Severity Reaction Status Date / Time No Known Allergies Allergy Verified 05/30/16 15:54 - Medications Medications: Current Medications Amiodarone HCl (Cordarone) 200 mg PO DAILY [facility] Last Admin: 07/01/16 08:36 Dose: 200 mg Aspirin (Ecotrin) 81 mg PO DAILY [facility] Last Admin: 07/01/16 08:36 Dose: 81 mg Furosemide (Lasix) 40 mg PO DAILY [facility] Last Admin: 07/01/16 08:36 Dose: 40 mg Cefazolin Sodium 2 gm/ Sodium (Chloride) 100 mls @ 100 mls/hr IVPB Q8 [facility] Last Admin: 07/01/16 10:39 Dose: 100 mls/hr Lidocaine (Lidoderm) 1 ea TD DAILY [facility] Last Admin: 07/01/16 08:37 Dose: 1 ea Morphine Sulfate (Morphine) 2 mg IVP Q6 PRN PRN Reason: Pain, severe (8-10) Last Admin: 07/01/16 03:09 Dose: 2 mg Ondansetron HCl (Zofran Inj) 4 mg IVP Q6 PRN PRN Reason: Nausea/Vomiting Last Admin: 06/29/16 11:32 Dose: 4 mg Physical Exam - Constitutional Appears: Other (obese male, older looking then stated age, cannot move well in bed) - Head Exam Head Exam: ATRAUMATIC - Eye Exam Eye Exam: EOMI Results - Vital Signs Recent Vital Signs: Last Vital Signs Temp 98.1 F 07/01/16 15:35 Pulse 79 07/01/16 15:35 Resp 20 07/01/16 15:35 BP 114/66 07/01/16 15:35 Pulse Ox 98 07/01/16 15:35 - Labs Result Diagrams: 07/01/16 06:45 07/01/16 06:45 Labs: Laboratory Results - last 24 hr 07/01/16 06:45 WBC 13.1 H RBC 3.22 L Hgb 10.9 L Hct 32.2 L MCV 100.2 H MCH 33.9 H MCHC 33.9 RDW 17.8 H Plt Count 108 L Sodium 140 Potassium 4.6 Chloride 106 Carbon Dioxide 24 Anion Gap 15 BUN 38 H Creatinine 1.0 Est GFR ( Amer) > 60 Est GFR (Non-Af Amer) > 60 Random Glucose 68 L Calcium 7.4 L Assessment & Plan - Assessment and Plan (Free Text) Assessment: has fair ROM all 4 extremities, no focal deficits very large, distended abdomen no calf tenderness or swelling no pain with hip ROM I will add oxycontin 10mg q8 hours in hopes of decrease of use of IV MS will need TCU on discharge from acute care continue PT/OT
[2016-07-01] MEDS: oxyCODONE 10 mg ER Tab (oxyCONTIN) PO SCH (17:01)
--- NOTE | 2016-07-01 19:04 | CP.PCM.PN ---
Subjective - Date & Time of Evaluation Date of Evaluation: 07/01/16 Time of Evaluation: 08:00 - Subjective Subjective: grew gram + cocci both sets will reculture may need echo/MEL Objective - Vital Signs/Intake and Output Vital Signs (last 24 hours): Temp Pulse Resp BP Pulse Ox 98.1 F 79 20 114/66 98 07/01/16 15:35 07/01/16 15:35 07/01/16 15:35 07/01/16 15:35 07/01/16 15:35 - Medications Medications: Current Medications Amiodarone HCl (Cordarone) [address] [facility] Last Admin: 07/01/16 08:36 Dose: 200 mg Aspirin (Ecotrin) [address] [facility] Last Admin: 07/01/16 08:36 Dose: 81 mg Furosemide (Lasix) [address] [facility] Last Admin: 07/01/16 08:36 Dose: 40 mg Cefazolin Sodium 2 gm/ Sodium (Chloride) 100 mls @ 100 mls/hr IVPB Q8 [facility] Last Admin: 07/01/16 17:02 Dose: 100 mls/hr Lidocaine (Lidoderm) [address] [facility] Last Admin: 07/01/16 08:37 Dose: 1 ea Morphine Sulfate (Morphine) 2 mg IVP Q6 PRN PRN Reason: Pain, severe (8-10) Last Admin: 07/01/16 03:09 Dose: 2 mg Ondansetron HCl (Zofran Inj) 4 mg IVP Q6 PRN PRN Reason: Nausea/Vomiting Last Admin: 06/29/16 11:32 Dose: 4 mg Oxycodone HCl (Oxycontin Extended Release Tab) [address] [facility] Stop: 07/04/16 17:01 Last Admin: 07/01/16 17:01 Dose: 10 mg - Labs Labs: 07/01/16 06:45 07/01/16 06:45 PT 20.9 SECONDS (9.6-11.2) H 06/30/16 14:30 INR 2.01 (0.92-1.08) H 06/30/16 14:30 APTT 40.2 SECONDS (23.3-32.5) H 06/30/16 14:30 - Constitutional Appears: Non-toxic, Chronically Ill - Head Exam Head Exam: NORMOCEPHALIC - Eye Exam Eye Exam: absent: Scleral icterus - ENT Exam ENT Exam: Normal External Ear Exam - Neck Exam Neck Exam: absent: Lymphadenopathy - Respiratory Exam Respiratory Exam: Decreased Breath Sounds, Rhonchi - Cardiovascular Exam Cardiovascular Exam: REGULAR RHYTHM, +S1, +S2 - GI/Abdominal Exam GI & Abdominal Exam: Distended, Soft. absent: Tenderness - Rectal Exam Rectal Exam: Deferred - Exam Exam: NORMAL INSPECTION - Extremities Exam Extremities Exam: absent: Pedal Edema - Back Exam Back Exam: absent: CVA tenderness (L), CVA tenderness (R) - Neurological Exam Neurological Exam: Alert, Awake, Oriented x3 Assessment and Plan (1) Cirrhosis of liver with ascites Status: Acute (2) Leukocytosis Status: Acute (3) Abdominal distension Status: Acute
--- NOTE | 2016-07-01 19:11 | CP.PCM.PN ---
Subjective - Date & Time of Evaluation Date of Evaluation: 07/01/16 Time of Evaluation: 22:22 - Subjective Subjective: Above noted Objective - Vital Signs/Intake and Output Vital Signs (last 24 hours): Temp Pulse Resp BP Pulse Ox 98.1 F 79 20 114/66 98 07/01/16 15:35 07/01/16 15:35 07/01/16 15:35 07/01/16 15:35 07/01/16 15:35 - Medications Medications: Current Medications Amiodarone HCl (Cordarone) 200 mg PO DAILY [facility] Last Admin: 07/01/16 08:36 Dose: 200 mg Aspirin (Ecotrin) 81 mg PO DAILY [facility] Last Admin: 07/01/16 08:36 Dose: 81 mg Furosemide (Lasix) 40 mg PO DAILY [facility] Last Admin: 07/01/16 08:36 Dose: 40 mg Cefazolin Sodium 2 gm/ Sodium (Chloride) 100 mls @ 100 mls/hr IVPB Q8 [facility] Last Admin: 07/01/16 17:02 Dose: 100 mls/hr Vancomycin HCl 500 mg/ Sodium (Chloride) 250 mls @ 250 mls/hr IVPB Q12H [facility] Lidocaine (Lidoderm) 1 ea TD DAILY [facility] Last Admin: 07/01/16 08:37 Dose: 1 ea Morphine Sulfate (Morphine) 2 mg IVP Q6 PRN PRN Reason: Pain, severe (8-10) Last Admin: 07/01/16 03:09 Dose: 2 mg Ondansetron HCl (Zofran Inj) 4 mg IVP Q6 PRN PRN Reason: Nausea/Vomiting Last Admin: 06/29/16 11:32 Dose: 4 mg Oxycodone HCl (Oxycontin Extended Release Tab) 10 mg PO Q8 [facility] Stop: 07/04/16 17:01 Last Admin: 07/01/16 17:01 Dose: 10 mg - Labs Labs: 07/01/16 06:45 07/01/16 06:45 PT 20.9 SECONDS (9.6-11.2) H 06/30/16 14:30 INR 2.01 (0.92-1.08) H 06/30/16 14:30 APTT 40.2 SECONDS (23.3-32.5) H 06/30/16 14:30 - Respiratory Exam Respiratory Exam: NORMAL BREATHING PATTERN - Cardiovascular Exam Cardiovascular Exam: REGULAR RHYTHM - GI/Abdominal Exam GI & Abdominal Exam: Normal Bowel Sounds Assessment and Plan - Assessment and Plan (Free Text) Assessment: Infection? etiol? SBP?? Blood cs gram + cocci Hx Staph coag neg PNA FISH ID Vanco Cefazolin Cirrhosis Hepatosplenomegaly Portal HTN ascites etiol?? Pancytopenia Low prot/alb s/p paracentesis last admission lasix GI Liver transplant? Hyperkalemia 2 to aldactone? d/c aldactone Kaexylate Nephrology Low back pain etiol? Physiatry appreciated A-fib/ rate controlled Amiodorone INR 2.0 Cardiology
[2016-07-02] MEDS: oxyCODONE 10 mg ER Tab (oxyCONTIN) PO SCH ×3 (01:54→17:53)
[2016-07-02] MEDS: ceFAZolin 2 GM in Sodium Chloride 0.9% 100 ML IVPB SCH ×3 (01:55→17:50)
[2016-07-02] MEDS: Lidocaine 5% Patch TD SCH (09:31)
--- NOTE | 2016-07-02 10:41 | CP.PCM.PN ---
Subjective - Date & Time of Evaluation Date of Evaluation: 07/02/16 Time of Evaluation: 09:30 - Subjective Subjective: NO CARDIAC COMPLAINTS Objective - Vital Signs/Intake and Output Vital Signs (last 24 hours): Temp Pulse Resp BP Pulse Ox 98.4 F 80 18 124/57 L 92 L 07/02/16 08:00 07/02/16 09:28 07/02/16 08:00 07/02/16 09:29 07/02/16 08:00 - Medications Medications: Current Medications Amiodarone HCl (Cordarone) 200 mg PO DAILY [facility] Last Admin: 07/02/16 09:28 Dose: 200 mg Aspirin (Ecotrin) 81 mg PO DAILY [facility] Last Admin: 07/02/16 09:29 Dose: 81 mg Furosemide (Lasix) 40 mg PO DAILY [facility] Last Admin: 07/02/16 09:29 Dose: 40 mg Cefazolin Sodium 2 gm/ Sodium (Chloride) 100 mls @ 100 mls/hr IVPB Q8 [facility] Last Admin: 07/02/16 01:55 Dose: 100 mls/hr Vancomycin HCl 500 mg/ Sodium (Chloride) 100 mls @ 100 mls/hr IVPB Q12H [facility] Last Admin: 07/01/16 21:22 Dose: 100 mls/hr Lidocaine (Lidoderm) 1 ea TD DAILY [facility] Last Admin: 07/02/16 09:31 Dose: 1 ea Morphine Sulfate (Morphine) 2 mg IVP Q6 PRN PRN Reason: Pain, severe (8-10) Last Admin: 07/01/16 03:09 Dose: 2 mg Ondansetron HCl (Zofran Inj) 4 mg IVP Q6 PRN PRN Reason: Nausea/Vomiting Last Admin: 06/29/16 11:32 Dose: 4 mg Oxycodone HCl (Oxycontin Extended Release Tab) 10 mg PO Q8 [facility] Stop: 07/04/16 17:01 Last Admin: 07/02/16 09:30 Dose: 10 mg - Labs Labs: 07/01/16 06:45 07/01/16 06:45 PT 20.9 SECONDS (9.6-11.2) H 06/30/16 14:30 INR 2.01 (0.92-1.08) H 06/30/16 14:30 APTT 40.2 SECONDS (23.3-32.5) H 06/30/16 14:30 - Respiratory Exam Respiratory Exam: Clear to Ausculation Bilateral - Cardiovascular Exam Cardiovascular Exam: REGULAR RHYTHM, +S1, +S2 - Extremities Exam Extremities Exam: Pedal Edema - Additional Findings Additional findings: [employer]RIAL TRACTOR [employer]IVER NSR Assessment and Plan - Assessment and Plan (Free Text) Assessment: FALL WITH BACK PAIN S/P ATRIAL FIBRILLATION-NOW IN NSR LIVER CIRRHOSIS Plan: CONTINUE AMIODARONE, FUROSEMIDE AND ASPIRIN
--- NOTE | 2016-07-02 11:49 | CP.PCM.CON ---
History of Present Illness - History of Present Illness History of Present Illness: Mr. Montesinos is a 71-year-old man with hepatic cirrhosis, hyperkalemia and leukocytosis who initially presented with complaints of back pain. Yesterday, he began complaining of right hand pain and weakness. He states that he has trouble with closing his hand, and when he does, it is painful. Opening the hand provides some relief. His hand is also swollen when compared with his other hand. He believes this started after he received several punctures to the arm during phlebotomy. He has no other complaints and denies headache, nausea, visual changes, shortness of breath, abdominal pain, other weakness or sensory changes. Review of Systems - Review of Systems All systems: reviewed and no additional remarkable complaints except Past Patient History - Past Medical History & Family History Past Medical History?: Yes - Past Social History Smoking Status: Never Smoked - CARDIAC Hx Cardiac Disorders: Yes (afib, HTN) - PULMONARY Hx Respiratory Disorders: No - NEUROLOGICAL Hx Neurological Disorder: No - HEENT Hx HEENT Problems: No - RENAL Hx Chronic Kidney Disease: No - ENDOCRINE/METABOLIC Hx Endocrine Disorders: No - HEMATOLOGICAL/ONCOLOGICAL Hx Blood Disorders: No - INTEGUMENTARY Hx Dermatological Problems: No - MUSCULOSKELETAL/RHEUMATOLOGICAL Hx Musculoskeletal Disorders: Yes (arthritis) - GASTROINTESTINAL Hx Gastrointestinal Disorders: No Other/Comment: liver cirrhosis - GENITOURINARY/GYNECOLOGICAL Hx Genitourinary Disorders: No - PSYCHIATRIC Hx Emotional Abuse: No Hx Physical Abuse: No Hx Substance Use: No - SURGICAL HISTORY Hx Surgeries: Yes Other/Comment: 2000 arthroscopic knee surgery - ANESTHESIA Hx Anesthesia: Yes Hx Anesthesia Reactions: No Hx Malignant Hyperthermia: No Meds Allergies/Adverse Reactions: Allergies Allergy/AdvReac Type Severity Reaction Status Date / Time No Known Allergies Allergy Verified 05/30/16 15:54 - Medications Medications: Current Medications Amiodarone HCl (Cordarone) 200 mg PO DAILY [facility] Last Admin: 07/02/16 09:28 Dose: 200 mg Aspirin (Ecotrin) 81 mg PO DAILY [facility] Last Admin: 07/02/16 09:29 Dose: 81 mg Furosemide (Lasix) 40 mg PO DAILY [facility] Last Admin: 07/02/16 09:29 Dose: 40 mg Cefazolin Sodium 2 gm/ Sodium (Chloride) 100 mls @ 100 mls/hr IVPB Q8 [facility] Last Admin: 07/02/16 01:55 Dose: 100 mls/hr Vancomycin HCl 500 mg/ Sodium (Chloride) 100 mls @ 100 mls/hr IVPB Q12H [facility] Last Admin: 07/01/16 21:22 Dose: 100 mls/hr Lidocaine (Lidoderm) 1 ea TD DAILY [facility] Last Admin: 07/02/16 09:31 Dose: 1 ea Morphine Sulfate (Morphine) 2 mg IVP Q6 PRN PRN Reason: Pain, severe (8-10) Last Admin: 07/01/16 03:09 Dose: 2 mg Ondansetron HCl (Zofran Inj) 4 mg IVP Q6 PRN PRN Reason: Nausea/Vomiting Last Admin: 06/29/16 11:32 Dose: 4 mg Oxycodone HCl (Oxycontin Extended Release Tab) 10 mg PO Q8 [facility] Stop: 07/04/16 17:01 Last Admin: 07/02/16 09:30 Dose: 10 mg Physical Exam - Constitutional Appears: Well - Head Exam Head Exam: ATRAUMATIC, NORMAL INSPECTION, NORMOCEPHALIC - Eye Exam Eye Exam: EOMI, PERRL, Scleral icterus Pupil Exam: NORMAL ACCOMODATION, PERRL - ENT Exam ENT Exam: Mucous Membranes Moist, Normal Exam - Neck Exam Neck exam: Positive for: Normal Inspection - Respiratory Exam Respiratory Exam: Clear to Auscultation Bilateral, NORMAL BREATHING PATTERN - Cardiovascular Exam Cardiovascular Exam: REGULAR RHYTHM - GI/Abdominal Exam GI & Abdominal Exam: Distended, Tenderness - Back Exam Back exam: tenderness, vertebral tenderness - Neurological Exam Neurological exam: Alert, CN II-XII Intact, Normal Gait, Oriented x3, Reflexes Normal Additional comments: Right hand appears edematous and errythematous, mostly on the palmar aspect. 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 - Expanded Neurological Exam Expanded Patient oriented to: person, place, time Cranial nerves: EOM's Intact: Normal, Facial Palsey w/Forehead Movement: Normal Cerebellar Function: Finger to Nose: Normal, Heel to Singh: Normal, Romberg: Normal Upper motor neuron: Babinski Sign: Normal Sensory exam: Lower Extremity 2 Point Discrimination: Normal, Lower Extremity Light Touch: Normal, Lower Extremity Pin Prick: Normal, Lower Extremity Temperature: Normal, Upper Extremity 2 Point Discrimination: Normal, Upper Extremity Light Touch: Normal, Upper Extremity Pin Prick: Normal, Upper Extremity Temperature: Normal DTR: Achilles Tendon Left: 2+, Achilles Tendon Right: 2+, Bicep Left: 2+, Bicep Right: 2+, Brachioradialis Left: 2+, Brachioradialis Right: 2+, Patellar Left: 2 +, Patellar Right: 2+, Tricep Left: 2+, Tricep Right: 2+ - Psychiatric Exam Psychiatric exam: Normal Affect, Normal Mood - Skin Skin Exam: Erythema Additional comments: jaundiced Results - Vital Signs Recent Vital Signs: Last Vital Signs Temp 98.4 F 07/02/16 08:00 Pulse 80 07/02/16 09:28 Resp 18 07/02/16 08:00 BP 124/57 L 07/02/16 09:29 Pulse Ox 92 L 07/02/16 08:00 - Labs Result Diagrams: 07/01/16 06:45 07/01/16 06:45 Assessment & Plan (1) Right hand weakness Assessment and Plan: Could be due to inflammation, infection, venous thrombus, posterior interosseus nerve involvement or tendonitis. I recommend Doppler ultrasound of the right upper extremity as well as a CT scan of the limb for further evaluation. This does not appear to be central in origin and is unlikely to warrant an MRI of the brain. This is clinically not a stroke syndrome. There may be peripheral nerve involvement, although it does not fit well with one particular nerve distribution and there are no sensory components except pain. Status: Acute
--- NOTE | 2016-07-02 12:19 | CP.PCM.PN ---
Subjective - Date & Time of Evaluation Date of Evaluation: 07/02/16 Time of Evaluation: 09:00 - Subjective Subjective: blood grew coag neg staph- sens to oxacillin will cont ancef consider MEL to r/o endocarditis Objective - Vital Signs/Intake and Output Vital Signs (last 24 hours): Temp Pulse Resp BP Pulse Ox 98.4 F 80 18 124/57 L 92 L 07/02/16 08:00 07/02/16 09:28 07/02/16 08:00 07/02/16 09:29 07/02/16 08:00 - Medications Medications: Current Medications Amiodarone HCl (Cordarone) 200 mg PO DAILY [facility] Last Admin: 07/02/16 09:28 Dose: 200 mg Aspirin (Ecotrin) 81 mg PO DAILY [facility] Last Admin: 07/02/16 09:29 Dose: 81 mg Furosemide (Lasix) 40 mg PO DAILY [facility] Last Admin: 07/02/16 09:29 Dose: 40 mg Cefazolin Sodium 2 gm/ Sodium (Chloride) 100 mls @ 100 mls/hr IVPB Q8 [facility] Last Admin: 07/02/16 01:55 Dose: 100 mls/hr Vancomycin HCl 500 mg/ Sodium (Chloride) 100 mls @ 100 mls/hr IVPB Q12H [facility] Last Admin: 07/01/16 21:22 Dose: 100 mls/hr Lidocaine (Lidoderm) 1 ea TD DAILY [facility] Last Admin: 07/02/16 09:31 Dose: 1 ea Morphine Sulfate (Morphine) 2 mg IVP Q6 PRN PRN Reason: Pain, severe (8-10) Last Admin: 07/01/16 03:09 Dose: 2 mg Ondansetron HCl (Zofran Inj) 4 mg IVP Q6 PRN PRN Reason: Nausea/Vomiting Last Admin: 06/29/16 11:32 Dose: 4 mg Oxycodone HCl (Oxycontin Extended Release Tab) 10 mg PO Q8 [facility] Stop: 07/04/16 17:01 Last Admin: 07/02/16 09:30 Dose: 10 mg - Labs Labs: 07/01/16 06:45 07/01/16 06:45 PT 20.9 SECONDS (9.6-11.2) H 06/30/16 14:30 INR 2.01 (0.92-1.08) H 06/30/16 14:30 APTT 40.2 SECONDS (23.3-32.5) H 06/30/16 14:30 - Constitutional Appears: Non-toxic, Chronically Ill - Head Exam Head Exam: NORMOCEPHALIC - Eye Exam Eye Exam: PERRL. absent: Scleral icterus - ENT Exam ENT Exam: Mucous Membranes Dry - Neck Exam Neck Exam: absent: Lymphadenopathy - Respiratory Exam Respiratory Exam: Decreased Breath Sounds - Cardiovascular Exam Cardiovascular Exam: REGULAR RHYTHM - GI/Abdominal Exam GI & Abdominal Exam: Distended, Soft. absent: Tenderness Assessment and Plan (1) Cirrhosis of liver with ascites Status: Acute (2) Leukocytosis Status: Acute (3) Abdominal distension Status: Acute
--- NOTE | 2016-07-02 23:14 | CP.PCM.PN ---
Subjective - Date & Time of Evaluation Date of Evaluation: 07/02/16 Time of Evaluation: 11:00 - Subjective Subjective: no events overnight denies any sob or chest pain Objective - Vital Signs/Intake and Output Vital Signs (last 24 hours): Temp Pulse Resp BP Pulse Ox 98.6 F 81 20 116/53 L 93 L 07/02/16 21:44 07/02/16 21:44 07/02/16 21:44 07/02/16 21:44 07/02/16 21:44 - Medications Medications: Current Medications Amiodarone HCl (Cordarone) 200 mg PO DAILY [facility] Last Admin: 07/02/16 09:28 Dose: 200 mg Aspirin (Ecotrin) 81 mg PO DAILY [facility] Last Admin: 07/02/16 09:29 Dose: 81 mg Furosemide (Lasix) 40 mg PO DAILY [facility] Last Admin: 07/02/16 09:29 Dose: 40 mg Cefazolin Sodium 2 gm/ Sodium (Chloride) 100 mls @ 100 mls/hr IVPB Q8 [facility] Last Admin: 07/02/16 17:50 Dose: 100 mls/hr Lidocaine (Lidoderm) 1 ea TD DAILY [facility] Last Admin: 07/02/16 09:31 Dose: 1 ea Morphine Sulfate (Morphine) 2 mg IVP Q6 PRN PRN Reason: Pain, severe (8-10) Last Admin: 07/01/16 03:09 Dose: 2 mg Ondansetron HCl (Zofran Inj) 4 mg IVP Q6 PRN PRN Reason: Nausea/Vomiting Last Admin: 06/29/16 11:32 Dose: 4 mg Oxycodone HCl (Oxycontin Extended Release Tab) 10 mg PO Q8 [facility] Stop: 07/04/16 17:01 Last Admin: 07/02/16 17:53 Dose: Not Given - Labs Labs: 07/01/16 06:45 07/01/16 06:45 PT 20.9 SECONDS (9.6-11.2) H 06/30/16 14:30 INR 2.01 (0.92-1.08) H 06/30/16 14:30 APTT 40.2 SECONDS (23.3-32.5) H 06/30/16 14:30 - Constitutional Appears: Well, Non-toxic, No Acute Distress - Head Exam Head Exam: NORMAL INSPECTION - Eye Exam Eye Exam: Normal appearance - ENT Exam ENT Exam: Mucous Membranes Moist - Neck Exam Neck Exam: Normal Inspection - Respiratory Exam Respiratory Exam: NORMAL BREATHING PATTERN - Cardiovascular Exam Cardiovascular Exam: REGULAR RHYTHM - GI/Abdominal Exam GI & Abdominal Exam: Soft - Extremities Exam Extremities Exam: Normal Inspection - Neurological Exam Neurological Exam: Alert, Oriented x3 - Skin Skin Exam: Dry Assessment and Plan - Assessment and Plan (Free Text) Plan: cirrhosis/hyperkalemia/edema potassium is improved renal function is stable continue diuretics
[2016-07-03] MEDS: oxyCODONE 10 mg ER Tab (oxyCONTIN) PO SCH ×3 (00:19→17:20)
[2016-07-03] MEDS: ceFAZolin 2 GM in Sodium Chloride 0.9% 100 ML IVPB SCH ×3 (00:20→17:00)
[2016-07-03 07:39] LABS: BLOOD UREA NITROGEN 33 mg/dl (9-20); CALCIUM 7.3 mg/dL (8.4-10.2); CARBON DIOXIDE 27 mmol/L (22-30); CHLORIDE 105 mmol/L (98-107); GFR AFRICAN-AMERICAN > 60; GLUCOSE,RANDOM 75 mg/dL (75-110); POTASSIUM 4.7 MMOL/L (3.6-5.0); SODIUM 140 mmol/l (132-148)
[2016-07-03] MEDS: Lidocaine 5% Patch TD SCH (08:37)
--- NOTE | 2016-07-03 13:19 | CP.PCM.PN ---
Subjective - Date & Time of Evaluation Date of Evaluation: 07/03/16 Time of Evaluation: 13:16 - Subjective Subjective: Patient clinically better. More energetic Objective - Vital Signs/Intake and Output Vital Signs (last 24 hours): Temp Pulse Resp BP Pulse Ox 98.2 F 77 18 113/56 L 93 L 07/03/16 08:00 07/03/16 09:00 07/03/16 08:00 07/03/16 08:38 07/03/16 08:00 - Medications Medications: Current Medications Amiodarone HCl (Cordarone) 200 mg PO DAILY [facility] Last Admin: 07/03/16 08:36 Dose: 200 mg Aspirin (Ecotrin) 81 mg PO DAILY [facility] Last Admin: 07/03/16 08:36 Dose: 81 mg Furosemide (Lasix) 40 mg PO DAILY [facility] Last Admin: 07/03/16 08:38 Dose: 40 mg Cefazolin Sodium 2 gm/ Sodium (Chloride) 100 mls @ 100 mls/hr IVPB Q8 [facility] Last Admin: 07/03/16 08:35 Dose: 100 mls/hr Lidocaine (Lidoderm) 1 ea TD DAILY [facility] Last Admin: 07/03/16 08:37 Dose: 1 ea Morphine Sulfate (Morphine) 2 mg IVP Q6 PRN PRN Reason: Pain, severe (8-10) Last Admin: 07/01/16 03:09 Dose: 2 mg Ondansetron HCl (Zofran Inj) 4 mg IVP Q6 PRN PRN Reason: Nausea/Vomiting Last Admin: 06/29/16 11:32 Dose: 4 mg Oxycodone HCl (Oxycontin Extended Release Tab) 10 mg PO Q8 [facility] Stop: 07/04/16 17:01 Last Admin: 07/03/16 08:37 Dose: Not Given - Labs Labs: 07/01/16 06:45 07/03/16 05:30 PT 20.9 SECONDS (9.6-11.2) H 06/30/16 14:30 INR 2.01 (0.92-1.08) H 06/30/16 14:30 APTT 40.2 SECONDS (23.3-32.5) H 06/30/16 14:30 - Head Exam Head Exam: ATRAUMATIC - Eye Exam Eye Exam: Normal appearance - Neck Exam Neck Exam: Normal Inspection - Respiratory Exam Respiratory Exam: Clear to Ausculation Bilateral - Cardiovascular Exam Cardiovascular Exam: REGULAR RHYTHM - GI/Abdominal Exam GI & Abdominal Exam: Distended, Soft. absent: Tenderness Assessment and Plan (1) Cirrhosis of liver with ascites Assessment & Plan: Abdomen distended but not tense. BUN/creatinine somewhat better. Right flank pain much improved. Continue current treatment. Status: Acute
--- NOTE | 2016-07-03 15:31 | CP.PCM.PN ---
Subjective - Date & Time of Evaluation Date of Evaluation: 07/03/16 Time of Evaluation: 22:22 - Subjective Subjective: Improving R hand weakness better Objective - Vital Signs/Intake and Output Vital Signs (last 24 hours): Temp Pulse Resp BP Pulse Ox 98.2 F 77 18 113/56 L 93 L 07/03/16 08:00 07/03/16 09:00 07/03/16 08:00 07/03/16 08:38 07/03/16 08:00 - Medications Medications: Current Medications Amiodarone HCl (Cordarone) 200 mg PO DAILY [facility] Last Admin: 07/03/16 08:36 Dose: 200 mg Aspirin (Ecotrin) 81 mg PO DAILY [facility] Last Admin: 07/03/16 08:36 Dose: 81 mg Furosemide (Lasix) 40 mg PO DAILY [facility] Last Admin: 07/03/16 08:38 Dose: 40 mg Cefazolin Sodium 2 gm/ Sodium (Chloride) 100 mls @ 100 mls/hr IVPB Q8 [facility] Last Admin: 07/03/16 08:35 Dose: 100 mls/hr Lidocaine (Lidoderm) 1 ea TD DAILY [facility] Last Admin: 07/03/16 08:37 Dose: 1 ea Morphine Sulfate (Morphine) 2 mg IVP Q6 PRN PRN Reason: Pain, severe (8-10) Last Admin: 07/01/16 03:09 Dose: 2 mg Ondansetron HCl (Zofran Inj) 4 mg IVP Q6 PRN PRN Reason: Nausea/Vomiting Last Admin: 06/29/16 11:32 Dose: 4 mg Oxycodone HCl (Oxycontin Extended Release Tab) 10 mg PO Q8 [facility] Stop: 07/04/16 17:01 Last Admin: 07/03/16 08:37 Dose: Not Given - Labs Labs: 07/01/16 06:45 07/03/16 05:30 PT 20.9 SECONDS (9.6-11.2) H 06/30/16 14:30 INR 2.01 (0.92-1.08) H 06/30/16 14:30 APTT 40.2 SECONDS (23.3-32.5) H 06/30/16 14:30 - Respiratory Exam Respiratory Exam: NORMAL BREATHING PATTERN - Cardiovascular Exam Cardiovascular Exam: Tachycardia - GI/Abdominal Exam GI & Abdominal Exam: Normal Bowel Sounds Assessment and Plan - Assessment and Plan (Free Text) Assessment: Infection? etiol? SBP?? Blood cs gram + cocci Hx Staph coag neg PNA FISH ID Vanco Cefazolin Cirrhosis Hepatosplenomegaly Portal HTN ascites etiol?? Pancytopenia Low prot/alb s/p paracentesis last admission lasix GI Liver transplant? Hyperkalemia 2 to aldactone? d/c aldactone Kaexylate Nephrology Low back pain etiol? improved Physiatry appreciated R hand weakness as per Neuro A-fib/ rate controlled Amiodorone INR 2.0 Cardiology
[2016-07-04] MEDS: ceFAZolin 2 GM in Sodium Chloride 0.9% 100 ML IVPB SCH ×3 (02:28→16:37)
[2016-07-04 05:05] LABS: ALB/GLOB RATIO 0.4 (1.0-2.1); ALKALINE PHOSPHATASE 91 U/L (38-126); ALT/SGPT 19 U/L (21-72); AST/SGOT 51 U/L (17-59); BILIRUBIN,TOTAL 2.6 mg/dl (0.2-1.3); BLOOD UREA NITROGEN 30 mg/dl (9-20); CALCIUM 7.3 mg/dL (8.4-10.2); CARBON DIOXIDE 25 mmol/L (22-30); CHLORIDE 106 mmol/L (98-107); GFR AFRICAN-AMERICAN > 60; GLUCOSE,RANDOM 77 mg/dL (75-110); POTASSIUM 4.5 MMOL/L (3.6-5.0); SODIUM 140 mmol/l (132-148); TOTAL PROTEIN 7.1 G/DL (6.3-8.2)
[2016-07-04 05:10] LABS: HEMATOCRIT 31.4 % (35.0-51.0); MEAN CELL VOLUME 101.6 fl (80.0-94.0); MEAN CORPUSCULAR HEMOGLOBIN 33.9 pg (27.0-31.0); MEAN CORPUSCULAR HGB CONC 33.4 g/dL (33.0-37.0); RED CELL DISTRIBUTION WIDTH 17.5 % (11.5-14.5); WHITE BLOOD COUNT 11.7 K/uL (4.8-10.8)
[2016-07-04 05:35] LABS: THYROID STIMULATING HORMONE 3.41 mIU/ML (0.46-4.68)
--- NOTE | 2016-07-04 08:34 | CP.PCM.PN ---
Subjective - Date & Time of Evaluation Date of Evaluation: 07/04/16 Time of Evaluation: 08:30 - Subjective Subjective: NO CARDIAC COMPLAINTS Objective - Vital Signs/Intake and Output Vital Signs (last 24 hours): Temp Pulse Resp BP Pulse Ox 98.3 F 79 16 116/60 94 L 07/04/16 05:20 07/04/16 05:20 07/04/16 05:20 07/04/16 05:20 07/04/16 05:20 - Medications Medications: Current Medications Amiodarone HCl (Cordarone) 200 mg PO DAILY [facility] Last Admin: 07/03/16 08:36 Dose: 200 mg Aspirin (Ecotrin) 81 mg PO DAILY [facility] Last Admin: 07/03/16 08:36 Dose: 81 mg Furosemide (Lasix) 40 mg PO DAILY [facility] Last Admin: 07/03/16 08:38 Dose: 40 mg Cefazolin Sodium 2 gm/ Sodium (Chloride) 100 mls @ 100 mls/hr IVPB Q8 [facility] Last Admin: 07/04/16 02:28 Dose: 100 mls/hr Lidocaine (Lidoderm) 1 ea TD DAILY [facility] Last Admin: 07/03/16 08:37 Dose: 1 ea Morphine Sulfate (Morphine) 2 mg IVP Q6 PRN PRN Reason: Pain, severe (8-10) Last Admin: 07/01/16 03:09 Dose: 2 mg Ondansetron HCl (Zofran Inj) 4 mg IVP Q6 PRN PRN Reason: Nausea/Vomiting Last Admin: 06/29/16 11:32 Dose: 4 mg Oxycodone HCl (Oxycontin Extended Release Tab) 10 mg PO Q8 [facility] Stop: 07/04/16 17:01 Last Admin: 07/03/16 17:20 Dose: Not Given - Labs Labs: 07/04/16 04:00 07/04/16 04:00 PT 20.9 SECONDS (9.6-11.2) H 06/30/16 14:30 INR 2.01 (0.92-1.08) H 06/30/16 14:30 APTT 40.2 SECONDS (23.3-32.5) H 06/30/16 14:30 - Respiratory Exam Respiratory Exam: Clear to Ausculation Bilateral - Cardiovascular Exam Cardiovascular Exam: REGULAR RHYTHM, +S1, +S2 - Extremities Exam Extremities Exam: Pedal Edema - 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
[2016-07-04] MEDS: Lidocaine 5% Patch TD SCH (08:57)
[2016-07-04] MEDS: oxyCODONE 10 mg ER Tab (oxyCONTIN) PO SCH (08:58)
--- NOTE | 2016-07-04 10:16 | US ---
PROCEDURE: Right Upper Extremity Venous Duplex Exam HISTORY: R/O DVT PRIORS: None. TECHNIQUE: Bilateral upper extremity, internal jugular, subclavian, axillary, brachial, ulnar, radial, basilic and upper cephalic veins were evaluated. Flow was assessed with color Doppler, compressibility, assessment of phasic flow and augmentation response. Report prepared by radiologic technologist mammogram. FINDINGS: RIGHT: 1. Internal Jugular: 1.1. Compressibility - Fully compressible: Thrombus - None : Flow - Phasic: Augmentation -Normal: Reflux - None. 2. Subclavian: 2.1. Compressibility - noncompressible for technical reasons related to patient anatomy: Thrombus - None : Flow - Phasic: Augmentation -Normal: Reflux - None. 3. Axillary: 3.1. Compressibility - Fully compressible: Thrombus - None : Flow - Phasic: Augmentation -Normal: Reflux - None. 4. Brachial: 4.1. Compressibility - Fully compressible: Thrombus - None: Flow - Phasic: Augmentation -Normal: Reflux - None. 5. Ulnar: 5.1. Compressibility - Fully compressible: Thrombus - None: Flow - Phasic: Augmentation -Normal: Reflux - None. 6. Radial: 6.1. Compressibility - Fully compressible: Thrombus - None: Flow - Phasic: Augmentation - Normal: Reflux - None. 7. Cephalic: 7.1. Compressibility - Fully compressible: Thrombus - None: Flow - Phasic: Augmentation -Normal: Reflux - None. 8. Basilic: 8.1. Compressibility - Fully compressible: Thrombus - None: Flow - Phasic: Augmentation -Normal: Reflux - None. IMPRESSION: Right: No evidence of vein thrombosis of the right upper extremity with excellent venous flow. Normal valve function noted of the right side.
--- NOTE | 2016-07-04 10:42 | CP.PCM.PN ---
Subjective - Date & Time of Evaluation Date of Evaluation: 07/04/16 Time of Evaluation: 10:40 - Subjective Subjective: Patient is out of bed Appeared to be comfortable Vital sign noted to be acceptable Feels much better Serum creatinine okay Serum electrolytes including potassium is okay A/P Hyperkalemia corrected Mild prerenal as leukemia corrected History of liver cirrhosis leg edema treatment as per primary team. Follow-up as needed Objective - Vital Signs/Intake and Output Vital Signs (last 24 hours): Temp Pulse Resp BP Pulse Ox 98.3 F 78 16 112/57 L 94 L 07/04/16 05:20 07/04/16 08:56 07/04/16 05:20 07/04/16 08:57 07/04/16 05:20 - Medications Medications: Current Medications Amiodarone HCl (Cordarone) 200 mg PO DAILY [facility] Last Admin: 07/04/16 08:56 Dose: 200 mg Aspirin (Ecotrin) 81 mg PO DAILY [facility] Last Admin: 07/04/16 08:57 Dose: 81 mg Furosemide (Lasix) 40 mg PO DAILY [facility] Last Admin: 07/04/16 08:57 Dose: 40 mg Cefazolin Sodium 2 gm/ Sodium (Chloride) 100 mls @ 100 mls/hr IVPB Q8 [facility] Last Admin: 07/04/16 02:28 Dose: 100 mls/hr Lidocaine (Lidoderm) 1 ea TD DAILY [facility] Last Admin: 07/04/16 08:57 Dose: 1 ea Morphine Sulfate (Morphine) 2 mg IVP Q6 PRN PRN Reason: Pain, severe (8-10) Last Admin: 07/01/16 03:09 Dose: 2 mg Ondansetron HCl (Zofran Inj) 4 mg IVP Q6 PRN PRN Reason: Nausea/Vomiting Last Admin: 06/29/16 11:32 Dose: 4 mg Oxycodone HCl (Oxycontin Extended Release Tab) 10 mg PO Q8 [facility] Stop: 07/04/16 17:01 Last Admin: 07/04/16 08:58 Dose: Not Given - Labs Labs: 07/04/16 04:00 07/04/16 04:00 PT 20.9 SECONDS (9.6-11.2) H 06/30/16 14:30 INR 2.01 (0.92-1.08) H 06/30/16 14:30 APTT 40.2 SECONDS (23.3-32.5) H 06/30/16 14:30 - Constitutional Appears: No Acute Distress - ENT Exam ENT Exam: Mucous Membranes Moist - Respiratory Exam Respiratory Exam: absent: Chest Wall Tenderness - Cardiovascular Exam Cardiovascular Exam: absent: Rubs - GI/Abdominal Exam GI & Abdominal Exam: Normal Bowel Sounds - Extremities Exam Extremities Exam: absent: Calf Tenderness - Back Exam Back Exam: absent: CVA tenderness (L), CVA tenderness (R) - Neurological Exam Neurological Exam: Alert Assessment and Plan (1) Cirrhosis of liver with ascites Status: Acute (2) Hyperkalemia Status: Acute
--- NOTE | 2016-07-04 10:44 | RAD ---
PROCEDURE: Right Hand Radiographs. HISTORY: right hand weakness COMPARISON: None available. FINDINGS: BONES: No acute displaced fracture. Mild degenerative changes. JOINTS: No dislocation. SOFT TISSUES: Unremarkable. No evidence of radiopaque foreign body. OTHER FINDINGS: None. IMPRESSION: Mild degenerative changes. No acute displaced fracture, dislocation, or significant joint effusion identified. If symptoms persist, or if there is continued clinical concern, x-ray follow-up in 7-10 days should be considered.
--- NOTE | 2016-07-04 12:08 | CP.PCM.PN ---
Subjective - Date & Time of Evaluation Date of Evaluation: 07/04/16 Time of Evaluation: 09:00 - Subjective Subjective: blood c/s still + may need MEL Cont IV rx rx as endocarditis Objective - Vital Signs/Intake and Output Vital Signs (last 24 hours): Temp Pulse Resp BP Pulse Ox 98.3 F 78 16 112/57 L 94 L 07/04/16 05:20 07/04/16 09:00 07/04/16 05:20 07/04/16 08:57 07/04/16 05:20 - Medications Medications: Current Medications Amiodarone HCl (Cordarone) 200 mg PO DAILY [facility] Last Admin: 07/04/16 08:56 Dose: 200 mg Aspirin (Ecotrin) 81 mg PO DAILY [facility] Last Admin: 07/04/16 08:57 Dose: 81 mg Furosemide (Lasix) 40 mg PO DAILY [facility] Last Admin: 07/04/16 08:57 Dose: 40 mg Cefazolin Sodium 2 gm/ Sodium (Chloride) 100 mls @ 100 mls/hr IVPB Q8 [facility] Last Admin: 07/04/16 10:45 Dose: 100 mls/hr Lidocaine (Lidoderm) 1 ea TD DAILY [facility] Last Admin: 07/04/16 08:57 Dose: 1 ea Morphine Sulfate (Morphine) 2 mg IVP Q6 PRN PRN Reason: Pain, severe (8-10) Last Admin: 07/01/16 03:09 Dose: 2 mg Ondansetron HCl (Zofran Inj) 4 mg IVP Q6 PRN PRN Reason: Nausea/Vomiting Last Admin: 06/29/16 11:32 Dose: 4 mg - Labs Labs: 07/04/16 04:00 07/04/16 04:00 PT 20.9 SECONDS (9.6-11.2) H 06/30/16 14:30 INR 2.01 (0.92-1.08) H 06/30/16 14:30 APTT 40.2 SECONDS (23.3-32.5) H 06/30/16 14:30 Assessment and Plan (1) Cirrhosis of liver with ascites Status: Acute (2) Leukocytosis Status: Acute (3) Abdominal distension Status: Acute
--- NOTE | 2016-07-04 16:01 | CARD ---
APPROVED REPORT EXAM: Two-dimensional and M-mode echocardiogram with Doppler and color Doppler. Other Information Quality : AverageRhythm : NSR INDICATION Infection:Subacute bacterial endocarditis 2D DIMENSIONS IVSd1.42 (0.7-1.1cm)LVDd5.15 (3.9-5.9cm) LVOT Diameter2.05 (1.8-2.4cm)PWd1.12 (0.7-1.1cm) IVSs1.38 (0.8-1.2cm)LVDs2.90 (2.5-4.0cm) FS (%) 43.6 %PWs1.43 (0.8-1.2cm) M-Mode DIMENSIONS Left Atrium (MM)3.47 (2.5-4.0cm)IVSd0.84 (0.7-1.1cm) Aortic Root3.84 (2.2-3.7cm)LVDd6.31 (4.0-5.6cm) Aortic Cusp Exc.1.78 (1.5-2.0cm)PWd0.97 (0.7-1.1cm) IVSs1.56 cmFS (%) 48 % LVDs3.31 (2.0-3.8cm)PWs1.59 cm Aortic Valve AoV Peak Ntsoraaj217.9cm/sAoV VTI53.3cmAO Peak GR.20mmHg LVOT Peak Tduadahb135.6cm/sLVOT VTI28.29cmAO Mean GR.12mmHg MAYDA (VMAX)0.75nh2KGZ (VTI)0.80cm2 Mitral Valve MV E Vkdtysrn10.4cm/sMV DECEL [id number] A Qdjvagzi55.7cm/s MV KSX94smZ/A ratio1.3MVA (PHT)4.52cm2 TDI Lateral E' Peak V15.24cm/sMedial E' Peak V9.45cm/sE/Lateral E'5.5 E/Medial E'8.9 Tricuspid Valve TR Peak Agbktutk834dz/sRAP XNWZKDKD73iaTkLG Peak Gr.17mmHg [id number] LEFT VENTRICLE The left ventricle is normal size. There is normal left ventricular wall thickness. The left ventricular function is normal. The left ventricular ejection fraction is 60-65% There is normal LV segmental wall motion. The left ventricular diastolic function is normal. No left ventricle thrombus noted on this study. There is no ventricular septal defect visualized. There is no left ventricular aneurysm. There is no mass noted in the left ventricle. RIGHT VENTRICLE The right ventricle is normal size. There is normal right ventricular wall thickness. The right ventricular systolic function is normal. ATRIA The left atrium size is normal. The right atrium size is normal. The interatrial septum is intact with no evidence for an atrial septal defect. AORTIC VALVE The aortic valve is moderately to severely sclerotic. No aortic regurgitation is present. There is no aortic valvular stenosis. There is no aortic valvular vegetation. MITRAL VALVE The mitral valve is normal in structure and function. There is no evidence of mitral valve prolapse. There is no mitral valve stenosis. There is no mitral valve regurgitation noted. TRICUSPID VALVE The tricuspid valve is normal in structure and function. There is no tricuspid valve regurgitation noted. There is no tricuspid valve prolapse or vegetation. There is no tricuspid valve stenosis. PULMONIC VALVE The pulmonary valve is normal in structure and function. There is no pulmonic valvular regurgitation. There is no pulmonic valvular stenosis. GREAT VESSELS The aortic root is normal in size. The ascending aorta is normal in size. The IVC is normal in size and collapses >50% with inspiration. PERICARDIAL EFFUSION The pericardium appears normal. There is no pleural effusion. <Conclusion> Normal LV Systolic Function Aortic Valve Sclerosis No vegitations visualized
--- NOTE | 2016-07-04 16:10 | CP.PCM.PN ---
Subjective - Date & Time of Evaluation Date of Evaluation: 07/04/16 Time of Evaluation: 16:08 - Subjective Subjective: Patient seen in room denies sob/cp back is feeling much better he is looking forward to ambulating not seen by PT today I have tried to reach the staff but line is busy He is pending echo prior to d/c to TCU continue current care Objective - Vital Signs/Intake and Output Vital Signs (last 24 hours): Temp Pulse Resp BP Pulse Ox 98.3 F 81 20 118/64 95 07/04/16 16:03 07/04/16 16:03 07/04/16 16:03 07/04/16 16:03 07/04/16 16:03 - Medications Medications: Current Medications Amiodarone HCl (Cordarone) 200 mg PO DAILY [facility] Last Admin: 07/04/16 08:56 Dose: 200 mg Aspirin (Ecotrin) 81 mg PO DAILY [facility] Last Admin: 07/04/16 08:57 Dose: 81 mg Furosemide (Lasix) 40 mg PO DAILY [facility] Last Admin: 07/04/16 08:57 Dose: 40 mg Cefazolin Sodium 2 gm/ Sodium (Chloride) 100 mls @ 100 mls/hr IVPB Q8 [facility] Last Admin: 07/04/16 10:45 Dose: 100 mls/hr Lidocaine (Lidoderm) 1 ea TD DAILY [facility] Last Admin: 07/04/16 08:57 Dose: 1 ea Morphine Sulfate (Morphine) 2 mg IVP Q6 PRN PRN Reason: Pain, severe (8-10) Last Admin: 07/01/16 03:09 Dose: 2 mg Ondansetron HCl (Zofran Inj) 4 mg IVP Q6 PRN PRN Reason: Nausea/Vomiting Last Admin: 06/29/16 11:32 Dose: 4 mg - Labs Labs: 07/04/16 04:00 07/04/16 04:00 PT 20.9 SECONDS (9.6-11.2) H 06/30/16 14:30 INR 2.01 (0.92-1.08) H 06/30/16 14:30 APTT 40.2 SECONDS (23.3-32.5) H 06/30/16 14:30
--- NOTE | 2016-07-04 20:09 | CP.PCM.PN ---
Subjective - Date & Time of Evaluation Date of Evaluation: 07/04/16 Time of Evaluation: 22:22 - Subjective Subjective: Doing well Echo wnl Objective - Vital Signs/Intake and Output Vital Signs (last 24 hours): Temp Pulse Resp BP Pulse Ox 97.5 F L 78 20 114/60 94 L 07/04/16 19:45 07/04/16 19:45 07/04/16 19:45 07/04/16 19:45 07/04/16 19:45 - Medications Medications: Current Medications Amiodarone HCl (Cordarone) 200 mg PO DAILY [facility] Last Admin: 07/04/16 08:56 Dose: 200 mg Aspirin (Ecotrin) 81 mg PO DAILY [facility] Last Admin: 07/04/16 08:57 Dose: 81 mg Furosemide (Lasix) 40 mg PO DAILY [facility] Last Admin: 07/04/16 08:57 Dose: 40 mg Cefazolin Sodium 2 gm/ Sodium (Chloride) 100 mls @ 100 mls/hr IVPB Q8 [facility] Last Admin: 07/04/16 16:37 Dose: 100 mls/hr Lidocaine (Lidoderm) 1 ea TD DAILY [facility] Last Admin: 07/04/16 08:57 Dose: 1 ea Morphine Sulfate (Morphine) 2 mg IVP Q6 PRN PRN Reason: Pain, severe (8-10) Last Admin: 07/01/16 03:09 Dose: 2 mg Ondansetron HCl (Zofran Inj) 4 mg IVP Q6 PRN PRN Reason: Nausea/Vomiting Last Admin: 06/29/16 11:32 Dose: 4 mg - Labs Labs: 07/04/16 04:00 07/04/16 04:00 PT 20.9 SECONDS (9.6-11.2) H 06/30/16 14:30 INR 2.01 (0.92-1.08) H 06/30/16 14:30 APTT 40.2 SECONDS (23.3-32.5) H 06/30/16 14:30 - Respiratory Exam Respiratory Exam: NORMAL BREATHING PATTERN - Cardiovascular Exam Cardiovascular Exam: REGULAR RHYTHM - GI/Abdominal Exam GI & Abdominal Exam: Normal Bowel Sounds Assessment and Plan - Assessment and Plan (Free Text) Assessment: Infection? etiol? SBP?? Endocarditis?? Blood cs Staph coag neg PNA FISH (2nd time) ID Cardiology Cefazolin Cirrhosis Hepatosplenomegaly Portal HTN ascites etiol?? Pancytopenia Low prot/alb s/p paracentesis last admission lasix GI Liver transplant? Hyperkalemia 2 to aldactone? d/c aldactone Kaexylate Nephrology Low back pain etiol? improved Physiatry appreciated R hand weakness as per Neuro A-fib/ rate controlled Amiodorone INR 2.0 Cardiology
[2016-07-05] MEDS: ceFAZolin 2 GM in Sodium Chloride 0.9% 100 ML IVPB SCH ×3 (00:34→17:23)
[2016-07-05] MEDS: Lidocaine 5% Patch TD SCH (09:23)
--- NOTE | 2016-07-05 10:50 | CP.PCM.PN ---
Subjective - Date & Time of Evaluation Date of Evaluation: 07/05/16 Time of Evaluation: 08:00 - Subjective Subjective: repeat blood c/s neg no change on exam rx for 6 weeks unless MEL rules out endocarditis Objective - Vital Signs/Intake and Output Vital Signs (last 24 hours): Temp Pulse Resp BP Pulse Ox 98.3 F 79 20 119/57 L 93 L 07/05/16 08:00 07/05/16 09:21 07/05/16 08:00 07/05/16 09:22 07/05/16 08:00 - Medications Medications: Current Medications Amiodarone HCl (Cordarone) 200 mg PO DAILY [facility] Last Admin: 07/05/16 09:21 Dose: 200 mg Aspirin (Ecotrin) 81 mg PO DAILY [facility] Last Admin: 07/05/16 09:21 Dose: 81 mg Furosemide (Lasix) 40 mg PO DAILY [facility] Last Admin: 07/05/16 09:22 Dose: 40 mg Cefazolin Sodium 2 gm/ Sodium (Chloride) 100 mls @ 100 mls/hr IVPB Q8 [facility] Last Admin: 07/05/16 09:20 Dose: 100 mls/hr Lidocaine (Lidoderm) 1 ea TD DAILY [facility] Last Admin: 07/05/16 09:23 Dose: 1 ea Morphine Sulfate (Morphine) 2 mg IVP Q6 PRN PRN Reason: Pain, severe (8-10) Last Admin: 07/01/16 03:09 Dose: 2 mg Ondansetron HCl (Zofran Inj) 4 mg IVP Q6 PRN PRN Reason: Nausea/Vomiting Last Admin: 06/29/16 11:32 Dose: 4 mg - Labs Labs: 07/04/16 04:00 07/04/16 04:00 PT 20.9 SECONDS (9.6-11.2) H 06/30/16 14:30 INR 2.01 (0.92-1.08) H 06/30/16 14:30 APTT 40.2 SECONDS (23.3-32.5) H 06/30/16 14:30 - Constitutional Appears: Non-toxic - Head Exam Head Exam: NORMOCEPHALIC - Eye Exam Eye Exam: absent: Scleral icterus - ENT Exam ENT Exam: Mucous Membranes Dry - Neck Exam Neck Exam: absent: Lymphadenopathy - Respiratory Exam Respiratory Exam: Clear to Ausculation Bilateral - Cardiovascular Exam Cardiovascular Exam: REGULAR RHYTHM Assessment and Plan (1) Cirrhosis of liver with ascites Status: Acute (2) Leukocytosis Status: Acute (3) Abdominal distension Status: Acute
--- NOTE | 2016-07-05 12:02 | CP.PCM.PN ---
Subjective - Date & Time of Evaluation Date of Evaluation: 07/05/16 Time of Evaluation: 10:00 - Subjective Subjective: NO CHEST PAIN, PALPITATIONS OR SOB PT DENIES FEVERS OR CHILLS Objective - Vital Signs/Intake and Output Vital Signs (last 24 hours): Temp Pulse Resp BP Pulse Ox 98.3 F 79 20 119/57 L 93 L 07/05/16 08:00 07/05/16 09:21 07/05/16 08:00 07/05/16 09:22 07/05/16 08:00 - Medications Medications: Current Medications Amiodarone HCl (Cordarone) 200 mg PO DAILY [facility] Last Admin: 07/05/16 09:21 Dose: 200 mg Aspirin (Ecotrin) 81 mg PO DAILY [facility] Last Admin: 07/05/16 09:21 Dose: 81 mg Furosemide (Lasix) 40 mg PO DAILY [facility] Last Admin: 07/05/16 09:22 Dose: 40 mg Cefazolin Sodium 2 gm/ Sodium (Chloride) 100 mls @ 100 mls/hr IVPB Q8 [facility] Last Admin: 07/05/16 09:20 Dose: 100 mls/hr Lidocaine (Lidoderm) 1 ea TD DAILY [facility] Last Admin: 07/05/16 09:23 Dose: 1 ea Morphine Sulfate (Morphine) 2 mg IVP Q6 PRN PRN Reason: Pain, severe (8-10) Last Admin: 07/05/16 11:04 Dose: 2 mg Ondansetron HCl (Zofran Inj) 4 mg IVP Q6 PRN PRN Reason: Nausea/Vomiting Last Admin: 06/29/16 11:32 Dose: 4 mg - Labs Labs: 07/04/16 04:00 07/04/16 04:00 PT 20.9 SECONDS (9.6-11.2) H 06/30/16 14:30 INR 2.01 (0.92-1.08) H 06/30/16 14:30 APTT 40.2 SECONDS (23.3-32.5) H 06/30/16 14:30 - Respiratory Exam Respiratory Exam: Clear to Ausculation Bilateral - Cardiovascular Exam Cardiovascular Exam: Diastolic murmur, REGULAR RHYTHM, +S1, +S2 - Extremities Exam Extremities Exam: Pedal Edema - Additional Findings 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
--- NOTE | 2016-07-05 20:54 | CP.PCM.PN ---
Subjective - Date & Time of Evaluation Date of Evaluation: 07/05/16 Time of Evaluation: 22:22 - Subjective Subjective: Above noted Objective - Vital Signs/Intake and Output Vital Signs (last 24 hours): Temp Pulse Resp BP Pulse Ox 97.9 F 73 20 109/55 L 98 07/05/16 19:13 07/05/16 19:13 07/05/16 19:13 07/05/16 19:13 07/05/16 19:13 Intake and Output: 07/05/16 07/06/16 18:59 06:59 Intake Total 1400 Balance 1400 - Medications Medications: Current Medications Amiodarone HCl (Cordarone) 200 mg PO DAILY [facility] Last Admin: 07/05/16 09:21 Dose: 200 mg Aspirin (Ecotrin) 81 mg PO DAILY [facility] Last Admin: 07/05/16 09:21 Dose: 81 mg Furosemide (Lasix) 40 mg PO DAILY [facility] Last Admin: 07/05/16 09:22 Dose: 40 mg Cefazolin Sodium 2 gm/ Sodium (Chloride) 100 mls @ 100 mls/hr IVPB Q8 [facility] Last Admin: 07/05/16 17:23 Dose: 100 mls/hr Lidocaine (Lidoderm) 1 ea TD DAILY [facility] Last Admin: 07/05/16 09:23 Dose: 1 ea Ondansetron HCl (Zofran Inj) 4 mg IVP Q6 PRN PRN Reason: Nausea/Vomiting Last Admin: 06/29/16 11:32 Dose: 4 mg - Labs Labs: 07/04/16 04:00 07/04/16 04:00 PT 20.9 SECONDS (9.6-11.2) H 06/30/16 14:30 INR 2.01 (0.92-1.08) H 06/30/16 14:30 APTT 40.2 SECONDS (23.3-32.5) H 06/30/16 14:30 - Respiratory Exam Respiratory Exam: NORMAL BREATHING PATTERN - Cardiovascular Exam Cardiovascular Exam: REGULAR RHYTHM - GI/Abdominal Exam GI & Abdominal Exam: Normal Bowel Sounds Assessment and Plan - Assessment and Plan (Free Text) Assessment: Sepsis/ bacteremia etiol? SBP?? Endocarditis?? Blood C&S Staph coag neg PNA FISH (2nd time) Pt refusing MEL ID Cardiology Cefazolin Cirrhosis Hepatosplenomegaly Portal HTN ascites etiol?? Pancytopenia Low prot/alb s/p paracentesis last admission lasix GI Liver transplant? Hyperkalemia 2 to aldactone? d/c aldactone Kaexylate Nephrology Low back pain etiol? improved Physiatry appreciated R hand weakness as per Neuro A-fib/ rate controlled Amiodorone INR 2.0 Cardiology
[2016-07-06] MEDS: ceFAZolin 2 GM in Sodium Chloride 0.9% 100 ML IVPB SCH ×3 (01:54→17:55)
[2016-07-06] MEDS: Lidocaine 5% Patch TD SCH (09:50)
--- NOTE | 2016-07-06 10:17 | CP.PCM.PN ---
Subjective - Date & Time of Evaluation Date of Evaluation: 07/06/16 Time of Evaluation: 09:00 - Subjective Subjective: NO CHEST PAIN, PALPITATIONS OR SOB NO FEVERS OR CHILLS Objective - Vital Signs/Intake and Output Vital Signs (last 24 hours): Temp Pulse Resp BP Pulse Ox 97.8 F 79 20 112/75 96 07/06/16 08:00 07/06/16 09:49 07/06/16 08:00 07/06/16 09:50 07/06/16 08:00 - Medications Medications: Current Medications Amiodarone HCl (Cordarone) 200 mg PO DAILY [facility] Last Admin: 07/06/16 09:49 Dose: 200 mg Aspirin (Ecotrin) 81 mg PO DAILY [facility] Last Admin: 07/06/16 09:49 Dose: 81 mg Furosemide (Lasix) 40 mg PO DAILY [facility] Last Admin: 07/06/16 09:50 Dose: 40 mg Cefazolin Sodium 2 gm/ Sodium (Chloride) 100 mls @ 100 mls/hr IVPB Q8 [facility] Last Admin: 07/06/16 10:02 Dose: 100 mls/hr Lidocaine (Lidoderm) 1 ea TD DAILY [facility] Last Admin: 07/06/16 09:50 Dose: 1 ea Morphine Sulfate (Morphine) 2 mg IVP Q6 PRN PRN Reason: Pain, moderate (4-7) Stop: 07/08/16 21:29 Ondansetron HCl (Zofran Inj) 4 mg IVP Q6 PRN PRN Reason: Nausea/Vomiting Last Admin: 06/29/16 11:32 Dose: 4 mg - Labs Labs: 07/04/16 04:00 07/04/16 04:00 PT 20.9 SECONDS (9.6-11.2) H 06/30/16 14:30 INR 2.01 (0.92-1.08) H 06/30/16 14:30 APTT 40.2 SECONDS (23.3-32.5) H 06/30/16 14:30 - Respiratory Exam Respiratory Exam: Clear to Ausculation Bilateral - Cardiovascular Exam Cardiovascular Exam: Diastolic murmur, REGULAR RHYTHM, +S1, +S2, Murmur - Extremities Exam Additional comments: SIGNIFICANT IMPROVEMENT IN LE EDEMA - 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
--- NOTE | 2016-07-06 14:35 | CP.PCM.PCO ---
Assessment & Plan - Assessment and Plan (Free Text) Plan: Plan discussed with Dr Clemons and Dr Bertrand, patient has agreed to MEL at this time. Patient to have a MEL on monday at [facility] with Dr Rao Patient informed of plan of care.
--- NOTE | 2016-07-06 17:17 | CP.PCM.PN ---
Subjective - Date & Time of Evaluation Date of Evaluation: 07/06/16 Time of Evaluation: 10:00 - Subjective Subjective: + blood c/a agrees to KOFI Objective - Vital Signs/Intake and Output Vital Signs (last 24 hours): Temp Pulse Resp BP Pulse Ox 98.3 F 90 20 119/54 L 97 07/06/16 15:56 07/06/16 15:56 07/06/16 15:56 07/06/16 15:56 07/06/16 15:56 - Medications Medications: Current Medications Amiodarone HCl (Cordarone) 200 mg PO DAILY [facility] Last Admin: 07/06/16 09:49 Dose: 200 mg Aspirin (Ecotrin) 81 mg PO DAILY [facility] Last Admin: 07/06/16 09:49 Dose: 81 mg Furosemide (Lasix) 40 mg PO DAILY [facility] Last Admin: 07/06/16 09:50 Dose: 40 mg Cefazolin Sodium 2 gm/ Sodium (Chloride) 100 mls @ 100 mls/hr IVPB Q8 [facility] Last Admin: 07/06/16 10:02 Dose: 100 mls/hr Lidocaine (Lidoderm) 1 ea TD DAILY [facility] Last Admin: 07/06/16 09:50 Dose: 1 ea Morphine Sulfate (Morphine) 2 mg IVP Q6 PRN PRN Reason: Pain, moderate (4-7) Stop: 07/08/16 21:29 Ondansetron HCl (Zofran Inj) 4 mg IVP Q6 PRN PRN Reason: Nausea/Vomiting Last Admin: 06/29/16 11:32 Dose: 4 mg - Labs Labs: 07/04/16 04:00 07/04/16 04:00 PT 20.9 SECONDS (9.6-11.2) H 06/30/16 14:30 INR 2.01 (0.92-1.08) H 06/30/16 14:30 APTT 40.2 SECONDS (23.3-32.5) H 06/30/16 14:30 - Constitutional Appears: Non-toxic, Chronically Ill - Head Exam Head Exam: NORMOCEPHALIC - Eye Exam Eye Exam: PERRL. absent: Scleral icterus - ENT Exam ENT Exam: Mucous Membranes Dry - Neck Exam Neck Exam: absent: Lymphadenopathy, Thyromegaly - Respiratory Exam Respiratory Exam: Decreased Breath Sounds, Rhonchi - Cardiovascular Exam Cardiovascular Exam: REGULAR RHYTHM, +S1, +S2 - GI/Abdominal Exam GI & Abdominal Exam: Distended, Soft Assessment and Plan (1) Cirrhosis of liver with ascites Status: Acute (2) Leukocytosis Status: Acute (3) Abdominal distension Status: Acute (4) Bacteremia due to Gram-positive bacteria Status: Acute - Assessment and Plan (Free Text) Assessment: check kofi
--- NOTE | 2016-07-06 20:31 | CP.PCM.PN ---
Subjective - Date & Time of Evaluation Date of Evaluation: 07/06/16 Time of Evaluation: 22:22 - Subjective Subjective: pt agrees for MEL Objective - Vital Signs/Intake and Output Vital Signs (last 24 hours): Temp Pulse Resp BP Pulse Ox 98.1 F 83 20 111/63 92 L 07/06/16 19:06 07/06/16 19:06 07/06/16 19:06 07/06/16 19:06 07/06/16 19:06 Intake and Output: 07/06/16 07/07/16 18:59 06:59 Intake Total 1060 Balance 1060 - Medications Medications: Current Medications Amiodarone HCl (Cordarone) 200 mg PO DAILY [facility] Last Admin: 07/06/16 09:49 Dose: 200 mg Aspirin (Ecotrin) 81 mg PO DAILY [facility] Last Admin: 07/06/16 09:49 Dose: 81 mg Furosemide (Lasix) 40 mg PO DAILY [facility] Last Admin: 07/06/16 09:50 Dose: 40 mg Cefazolin Sodium 2 gm/ Sodium (Chloride) 100 mls @ 100 mls/hr IVPB Q8 [facility] Last Admin: 07/06/16 17:55 Dose: 100 mls/hr Lidocaine (Lidoderm) 1 ea TD DAILY [facility] Last Admin: 07/06/16 09:50 Dose: 1 ea Morphine Sulfate (Morphine) 2 mg IVP Q6 PRN PRN Reason: Pain, moderate (4-7) Stop: 07/08/16 21:29 Ondansetron HCl (Zofran Inj) 4 mg IVP Q6 PRN PRN Reason: Nausea/Vomiting Last Admin: 06/29/16 11:32 Dose: 4 mg - Labs Labs: 07/04/16 04:00 07/04/16 04:00 PT 20.9 SECONDS (9.6-11.2) H 06/30/16 14:30 INR 2.01 (0.92-1.08) H 06/30/16 14:30 APTT 40.2 SECONDS (23.3-32.5) H 06/30/16 14:30 - Respiratory Exam Respiratory Exam: NORMAL BREATHING PATTERN - Cardiovascular Exam Cardiovascular Exam: REGULAR RHYTHM - GI/Abdominal Exam GI & Abdominal Exam: Normal Bowel Sounds Assessment and Plan - Assessment and Plan (Free Text) Assessment: Sepsis/ bacteremia etiol? SBP?? Endocarditis?? Blood C&S Staph coag neg PNA FISH (2nd time) MEL Cefazolin ID Cardiology Cirrhosis Hepatosplenomegaly Portal HTN ascites etiol?? Pancytopenia Low prot/alb s/p paracentesis last admission lasix GI Liver transplant? Hyperkalemia 2 to aldactone? d/c aldactone Kaexylate Nephrology Low back pain etiol? improved Physiatry appreciated R hand weakness as per Neuro A-fib/ rate controlled Amiodorone INR 2.0 Cardiology
[2016-07-07] MEDS: ceFAZolin 2 GM in Sodium Chloride 0.9% 100 ML IVPB SCH ×3 (00:31→16:15)
[2016-07-07] MEDS: Lidocaine 5% Patch TD SCH (09:28)
--- NOTE | 2016-07-07 11:19 | CP.PCM.PN ---
Subjective - Date & Time of Evaluation Date of Evaluation: 07/07/16 Time of Evaluation: 10:45 - Subjective Subjective: NO NEW COMPLAINTS HAS AGREED TO HAVE A MEL Objective - Vital Signs/Intake and Output Vital Signs (last 24 hours): Temp Pulse Resp BP Pulse Ox 98.3 F 78 18 108/47 L 94 L 07/07/16 09:00 07/07/16 09:27 07/07/16 09:00 07/07/16 09:28 07/07/16 09:00 - Medications Medications: Current Medications Amiodarone HCl (Cordarone) 200 mg PO DAILY [facility] Last Admin: 07/07/16 09:27 Dose: 200 mg Aspirin (Ecotrin) 81 mg PO DAILY [facility] Last Admin: 07/07/16 09:27 Dose: 81 mg Furosemide (Lasix) 40 mg PO DAILY [facility] Last Admin: 07/07/16 09:28 Dose: Not Given Cefazolin Sodium 2 gm/ Sodium (Chloride) 100 mls @ 100 mls/hr IVPB Q8 [facility] Last Admin: 07/07/16 09:27 Dose: 100 mls/hr Lidocaine (Lidoderm) 1 ea TD DAILY [facility] Last Admin: 07/07/16 09:28 Dose: 1 ea Morphine Sulfate (Morphine) 2 mg IVP Q6 PRN PRN Reason: Pain, moderate (4-7) Stop: 07/08/16 21:29 Ondansetron HCl (Zofran Inj) 4 mg IVP Q6 PRN PRN Reason: Nausea/Vomiting Last Admin: 06/29/16 11:32 Dose: 4 mg - Labs Labs: 07/04/16 04:00 07/04/16 04:00 PT 20.9 SECONDS (9.6-11.2) H 06/30/16 14:30 INR 2.01 (0.92-1.08) H 06/30/16 14:30 APTT 40.2 SECONDS (23.3-32.5) H 06/30/16 14:30 - Respiratory Exam Respiratory Exam: Clear to Ausculation Bilateral - Cardiovascular Exam Cardiovascular Exam: Murmur - Extremities Exam Additional comments: NO SIGNIFICANT PEDAL EDEMA TODAY - Additional Findings 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
--- NOTE | 2016-07-07 21:02 | CP.PCM.PN ---
Subjective - Date & Time of Evaluation Date of Evaluation: 07/07/16 Time of Evaluation: 22:22 - Subjective Subjective: Doing well MEL renetta Objective - Vital Signs/Intake and Output Vital Signs (last 24 hours): Temp Pulse Resp BP Pulse Ox 97.8 F 82 20 114/58 L 95 07/07/16 20:02 07/07/16 20:02 07/07/16 20:02 07/07/16 20:02 07/07/16 20:02 - Medications Medications: Current Medications Amiodarone HCl (Cordarone) 200 mg PO DAILY [facility] Last Admin: 07/07/16 09:27 Dose: 200 mg Aspirin (Ecotrin) 81 mg PO DAILY [facility] Last Admin: 07/07/16 09:27 Dose: 81 mg Furosemide (Lasix) 40 mg PO DAILY [facility] Last Admin: 07/07/16 09:28 Dose: Not Given Cefazolin Sodium 2 gm/ Sodium (Chloride) 100 mls @ 100 mls/hr IVPB Q8 [facility] Last Admin: 07/07/16 16:15 Dose: 100 mls/hr Lidocaine (Lidoderm) 1 ea TD DAILY [facility] Last Admin: 07/07/16 09:28 Dose: 1 ea Ondansetron HCl (Zofran Inj) 4 mg IVP Q6 PRN PRN Reason: Nausea/Vomiting Last Admin: 06/29/16 11:32 Dose: 4 mg - Labs Labs: 07/04/16 04:00 07/04/16 04:00 PT 20.9 SECONDS (9.6-11.2) H 06/30/16 14:30 INR 2.01 (0.92-1.08) H 06/30/16 14:30 APTT 43.4 SECONDS (23.3-32.5) H 07/07/16 12:59 - Respiratory Exam Respiratory Exam: NORMAL BREATHING PATTERN - Cardiovascular Exam Cardiovascular Exam: REGULAR RHYTHM - GI/Abdominal Exam GI & Abdominal Exam: Normal Bowel Sounds Assessment and Plan - Assessment and Plan (Free Text) Assessment: Sepsis/ bacteremia etiol? SBP?? Endocarditis?? Blood C&S Staph coag neg PNA FISH (2nd time) MEL Cefazolin ID Cardiology Cirrhosis Hepatosplenomegaly Portal HTN ascites etiol?? Pancytopenia Low prot/alb s/p paracentesis last admission lasix GI Liver transplant? Hyperkalemia 2 to aldactone? d/c aldactone Kaexylate Nephrology Low back pain etiol? improved Physiatry appreciated R hand weakness as per Neuro A-fib/ rate controlled Amiodorone INR 2.0 Cardiology
[2016-07-08] MEDS: ceFAZolin 2 GM in Sodium Chloride 0.9% 100 ML IVPB SCH ×3 (00:22→16:17)
[2016-07-08] MEDS: Lidocaine 5% Patch TD SCH (10:03)
--- NOTE | 2016-07-08 10:17 | CP.PCM.PN ---
Subjective - Date & Time of Evaluation Date of Evaluation: 07/08/16 Time of Evaluation: 09:30 - Subjective Subjective: NO CHEST PAIN, PALPITATIONS OR SOB Objective - Vital Signs/Intake and Output Vital Signs (last 24 hours): Temp Pulse Resp BP Pulse Ox 98.1 F 80 20 112/60 94 L 07/08/16 08:00 07/08/16 10:02 07/08/16 08:00 07/08/16 10:02 07/08/16 08:00 Intake and Output: 07/08/16 07/08/16 06:59 18:59 Output Total 100 Balance -100 - Medications Medications: Current Medications Amiodarone HCl (Cordarone) 200 mg PO DAILY [facility] Last Admin: 07/08/16 10:02 Dose: Not Given Aspirin (Ecotrin) 81 mg PO DAILY [facility] Last Admin: 07/08/16 10:03 Dose: Not Given Furosemide (Lasix) 40 mg PO DAILY [facility] Last Admin: 07/08/16 10:03 Dose: Not Given Cefazolin Sodium 2 gm/ Sodium (Chloride) 100 mls @ 100 mls/hr IVPB Q8 [facility] Last Admin: 07/08/16 09:59 Dose: 100 mls/hr Lidocaine (Lidoderm) 1 ea TD DAILY [facility] Last Admin: 07/08/16 10:03 Dose: 1 ea Ondansetron HCl (Zofran Inj) 4 mg IVP Q6 PRN PRN Reason: Nausea/Vomiting Last Admin: 06/29/16 11:32 Dose: 4 mg - Labs Labs: 07/04/16 04:00 07/04/16 04:00 PT 25.8 SECONDS (9.6-11.2) H 07/08/16 06:10 INR 2.48 (0.92-1.08) H 07/08/16 06:10 APTT 43.4 SECONDS (23.3-32.5) H 07/07/16 12:59 - Respiratory Exam Respiratory Exam: Clear to Ausculation Bilateral - Cardiovascular Exam Cardiovascular Exam: REGULAR RHYTHM, +S1, +S2 - Additional Findings Additional findings: S/P ATRIAL FIBRILLATION-NOW IN NSR CIRRHOSIS OF THE LIVER BACTEREMIA Assessment and Plan - Assessment and Plan (Free Text) Plan: CONTINUE AMIODARONE, ASPIRIN AND ANTIBIOTICS FOR MEL TODAY
[2016-07-08] MEDS ORDERED: Lidocaine Hydrochloride 5 ML INJ ONE (13:16)
[2016-07-08] MEDS ORDERED: Propofol 10 mg/ml Inj (20 ML) ONE (13:16)
--- NOTE | 2016-07-08 14:39 | CP.PCM.PN ---
Subjective - Date & Time of Evaluation Date of Evaluation: 07/08/16 Time of Evaluation: 10:00 - Subjective Subjective: going for MEL no acute complaints Objective - Vital Signs/Intake and Output Vital Signs (last 24 hours): Temp Pulse Resp BP Pulse Ox 97.9 F 88 18 116/55 L 95 07/08/16 14:23 07/08/16 14:23 07/08/16 12:23 07/08/16 14:23 07/08/16 12:23 Intake and Output: 07/08/16 07/08/16 06:59 18:59 Output Total 100 Balance -100 - Medications Medications: Current Medications Amiodarone HCl (Cordarone) 200 mg PO DAILY [facility] Last Admin: 07/08/16 10:02 Dose: Not Given Aspirin (Ecotrin) 81 mg PO DAILY [facility] Last Admin: 07/08/16 10:03 Dose: Not Given Furosemide (Lasix) 40 mg PO DAILY [facility] Last Admin: 07/08/16 10:03 Dose: Not Given Cefazolin Sodium 2 gm/ Sodium (Chloride) 100 mls @ 100 mls/hr IVPB Q8 [facility] Last Admin: 07/08/16 09:59 Dose: 100 mls/hr Lidocaine (Lidoderm) 1 ea TD DAILY [facility] Last Admin: 07/08/16 10:03 Dose: 1 ea Ondansetron HCl (Zofran Inj) 4 mg IVP Q6 PRN PRN Reason: Nausea/Vomiting Last Admin: 06/29/16 11:32 Dose: 4 mg - Labs Labs: 07/04/16 04:00 07/04/16 04:00 PT 25.8 SECONDS (9.6-11.2) H 07/08/16 06:10 INR 2.48 (0.92-1.08) H 07/08/16 06:10 APTT 43.4 SECONDS (23.3-32.5) H 07/07/16 12:59 - Constitutional Appears: Non-toxic, Chronically Ill - Head Exam Head Exam: NORMOCEPHALIC - Eye Exam Eye Exam: PERRL. absent: Scleral icterus - ENT Exam ENT Exam: Mucous Membranes Dry - Neck Exam Neck Exam: absent: Lymphadenopathy - Respiratory Exam Respiratory Exam: Decreased Breath Sounds - Cardiovascular Exam Cardiovascular Exam: REGULAR RHYTHM, +S1, +S2 - GI/Abdominal Exam GI & Abdominal Exam: Distended, Soft. absent: Tenderness - Rectal Exam Rectal Exam: Deferred - Extremities Exam Extremities Exam: absent: Pedal Edema - Back Exam Back Exam: absent: CVA tenderness (L), CVA tenderness (R) - Neurological Exam Neurological Exam: Alert, Awake, Oriented x3 - Skin Skin Exam: Dry, Intact Assessment and Plan (1) Cirrhosis of liver with ascites Status: Acute (2) Leukocytosis Status: Acute (3) Abdominal distension Status: Acute (4) Bacteremia due to Gram-positive bacteria Status: Acute - Assessment and Plan (Free Text) Assessment: recurrent staph epi sepsis source unclear cont iv antibiotics for min 21 days
[2016-07-08] MEDS ORDERED: Sodium Chloride 0.9% 500 ML IV ONE (15:00)
--- NOTE | 2016-07-08 19:38 | CP.PCM.PN ---
Subjective - Date & Time of Evaluation Date of Evaluation: 07/08/16 Time of Evaluation: 22:22 - Subjective Subjective: MEL done today Objective - Vital Signs/Intake and Output Vital Signs (last 24 hours): Temp Pulse Resp BP Pulse Ox 98.2 F 88 18 114/60 93 L 07/08/16 19:36 07/08/16 19:36 07/08/16 19:36 07/08/16 19:36 07/08/16 19:36 Intake and Output: 07/08/16 07/09/16 18:59 06:59 Intake Total 150 Balance 150 - Medications Medications: Current Medications Amiodarone HCl (Cordarone) 200 mg PO DAILY [facility] Last Admin: 07/08/16 10:02 Dose: Not Given Aspirin (Ecotrin) 81 mg PO DAILY [facility] Last Admin: 07/08/16 10:03 Dose: Not Given Furosemide (Lasix) 40 mg PO DAILY [facility] Last Admin: 07/08/16 10:03 Dose: Not Given Cefazolin Sodium 2 gm/ Sodium (Chloride) 100 mls @ 100 mls/hr IVPB Q8 [facility] Last Admin: 07/08/16 16:17 Dose: 100 mls/hr Lidocaine (Lidoderm) 1 ea TD DAILY [facility] Last Admin: 07/08/16 10:03 Dose: 1 ea Ondansetron HCl (Zofran Inj) 4 mg IVP Q6 PRN PRN Reason: Nausea/Vomiting Last Admin: 06/29/16 11:32 Dose: 4 mg - Labs Labs: 07/04/16 04:00 07/04/16 04:00 PT 25.8 SECONDS (9.6-11.2) H 07/08/16 06:10 INR 2.48 (0.92-1.08) H 07/08/16 06:10 APTT 43.4 SECONDS (23.3-32.5) H 07/07/16 12:59 - Respiratory Exam Respiratory Exam: NORMAL BREATHING PATTERN - Cardiovascular Exam Cardiovascular Exam: REGULAR RHYTHM - GI/Abdominal Exam GI & Abdominal Exam: Normal Bowel Sounds Assessment and Plan - Assessment and Plan (Free Text) Assessment: Sepsis/ bacteremia etiol? SBP?? Endocarditis?? Blood C&S Staph coag neg PNA FISH (2nd time) MEL Cefazolin ID Cardiology Cirrhosis Hepatosplenomegaly Portal HTN ascites etiol?? Pancytopenia Low prot/alb s/p paracentesis last admission lasix GI Liver transplant? Hyperkalemia 2 to aldactone? d/c aldactone Kaexylate Nephrology Low back pain etiol? improved Physiatry appreciated R hand weakness as per Neuro A-fib/ rate controlled Amiodorone INR 2.0 Cardiology
[2016-07-09] MEDS: ceFAZolin 2 GM in Sodium Chloride 0.9% 100 ML IVPB SCH ×4 (02:48→17:15)
--- NOTE | 2016-07-09 08:52 | CARD ---
APPROVED REPORT EXAM: Transesophageal echocardiogram with color flow Doppler. INDICATION Infection:Subacute bacterial endocarditis PROCEDURE After obtaining informed consent, patient underwent transesophageal echo in the PACU Type of Sedation : Sedation was provided by anesthesiologist. Sedation was achieved with intravenously. Transesophageal probe was inserted and advanced into esophagus without difficulty. The MEL was performed complications. Throughout the procedure, the blood pressure, pulse oximetry, cardiac rhythm, and rate were monitored. LEFT VENTRICLE The left ventricle is normal size. The left ventricular function is normal. The left ventricular ejection fraction is within the normal range. There is normal LV segmental wall motion. No left ventricle thrombus noted on this study. There is no ventricular septal defect visualized. There is no left ventricular aneurysm. RIGHT VENTRICLE The right ventricle is normal size. There is normal right ventricular wall thickness. The right ventricular systolic function is normal. ATRIA The left atrium size is normal. The right atrium size is normal. PFO Noted AORTIC VALVE The aortic valve is moderately to severely calcified. NOTE: Turbulent flow across the AV noted without significant gradient The aortic valve is trileaflet. There is trace to mild aortic regurgitation. There is no aortic valvular stenosis. There is no aortic valvular vegetation. MITRAL VALVE The mitral valve is normal in structure and function. No Vegetations There is no evidence of mitral valve prolapse. There is no mitral valve stenosis. There is no mitral valve regurgitation noted. TRICUSPID VALVE The tricuspid valve is normal in structure and function. There is trace tricuspid regurgitation. There is no tricuspid valve prolapse or vegetation. There is no tricuspid valve stenosis. PULMONIC VALVE The pulmonary valve is normal in structure and function. No Vegetation on tricuspid valve There is trace pulmonic valvular regurgitation. GREAT VESSELS The aortic root is normal in size. Mild atherosclerosis in the decending aorta. PERICARDIAL EFFUSION Pleural effusions and ascites noted. <Conclusion> NEGATIVE FOR VEGETATIONS OR ENDOCARDITIS. The left ventricular ejection fraction is within the normal range. PFO Noted The aortic valve is moderately to severely calcified. NOTE: Turbulent flow across the AV noted without significant gradient The aortic valve is trileaflet. There is trace to mild aortic regurgitation. There is no aortic valvular stenosis. There is no aortic valvular vegetation. The mitral valve is normal in structure and function. No Vegetations There is no tricuspid valve prolapse or vegetation. There is trace tricuspid regurgitation. The pulmonary valve is normal in structure and function. Mild atherosclerosis in the decending aorta. Pleural effusions and ascites noted.
[2016-07-09] MEDS: Lidocaine 5% Patch TD SCH (09:30)
--- NOTE | 2016-07-09 15:24 | CP.PCM.PN ---
Subjective - Date & Time of Evaluation Date of Evaluation: 07/09/16 Time of Evaluation: 14:30 - Subjective Subjective: NO NEW COMPLAINTS Objective - Vital Signs/Intake and Output Vital Signs (last 24 hours): Temp Pulse Resp BP Pulse Ox 98.1 F 80 18 109/56 L 94 L 07/09/16 12:03 07/09/16 12:03 07/09/16 12:03 07/09/16 12:03 07/09/16 12:03 Intake and Output: 07/09/16 07/09/16 06:59 18:59 Intake Total 850 Balance 850 - Medications Medications: Current Medications Amiodarone HCl (Cordarone) 200 mg PO DAILY [facility] Last Admin: 07/09/16 09:29 Dose: 200 mg Aspirin (Ecotrin) 81 mg PO DAILY [facility] Last Admin: 07/09/16 09:29 Dose: 81 mg Furosemide (Lasix) 40 mg PO DAILY [facility] Last Admin: 07/09/16 09:28 Dose: 40 mg Cefazolin Sodium 2 gm/ Sodium (Chloride) 100 mls @ 100 mls/hr IVPB Q8 [facility] Last Admin: 07/09/16 10:00 Dose: 100 mls/hr Lidocaine (Lidoderm) 1 ea TD DAILY [facility] Last Admin: 07/09/16 09:30 Dose: 1 ea Ondansetron HCl (Zofran Inj) 4 mg IVP Q6 PRN PRN Reason: Nausea/Vomiting Last Admin: 06/29/16 11:32 Dose: 4 mg - Labs Labs: 07/04/16 04:00 07/04/16 04:00 PT 25.8 SECONDS (9.6-11.2) H 07/08/16 06:10 INR 2.48 (0.92-1.08) H 07/08/16 06:10 APTT 43.4 SECONDS (23.3-32.5) H 07/07/16 12:59 - Respiratory Exam Respiratory Exam: Clear to Ausculation Bilateral - Cardiovascular Exam Cardiovascular Exam: REGULAR RHYTHM, +S1, +S2 - Additional Findings Additional findings: [place] NSR MEL NEGATIVE FOR VEGETATIONS Assessment and Plan - Assessment and Plan (Free Text) Assessment: S/P ATRIAL FIBRILLATION CIRRHOSIS OF THE LIVER Plan: CONTINUE ASPIRIN, AMIODARONE AND FUROSEMIDE FOR TCU
[2016-07-09 16:25] VITALS: RESP 20
[2016-07-09 20:02] VITALS: BP 110/61; PULSE 80; TEMP 97.8; O2SAT 93
--- NOTE | 2016-07-09 20:18 | CP.PCM.PN ---
Subjective - Date & Time of Evaluation Date of Evaluation: 07/09/16 Time of Evaluation: 22:22 - Subjective Subjective: DOing well Objective - Vital Signs/Intake and Output Vital Signs (last 24 hours): Temp Pulse Resp BP Pulse Ox 97.8 F 80 20 110/61 93 L 07/09/16 20:01 07/09/16 20:01 07/09/16 20:01 07/09/16 20:01 07/09/16 20:01 - Medications Medications: Current Medications Amiodarone HCl (Cordarone) 200 mg PO DAILY [facility] Last Admin: 07/09/16 09:29 Dose: 200 mg Aspirin (Ecotrin) 81 mg PO DAILY [facility] Last Admin: 07/09/16 09:29 Dose: 81 mg Furosemide (Lasix) 40 mg PO DAILY [facility] Last Admin: 07/09/16 09:28 Dose: 40 mg Cefazolin Sodium 2 gm/ Sodium (Chloride) 100 mls @ 100 mls/hr IVPB Q8 [facility] Last Admin: 07/09/16 17:15 Dose: 100 mls/hr Lidocaine (Lidoderm) 1 ea TD DAILY [facility] Last Admin: 07/09/16 09:30 Dose: 1 ea Ondansetron HCl (Zofran Inj) 4 mg IVP Q6 PRN PRN Reason: Nausea/Vomiting Last Admin: 06/29/16 11:32 Dose: 4 mg Tramadol HCl (Ultram) 50 mg PO BID PRN PRN Reason: Pain, moderate (4-7) Last Admin: 07/09/16 20:11 Dose: 50 mg - Labs Labs: 07/04/16 04:00 07/04/16 04:00 PT 25.8 SECONDS (9.6-11.2) H 07/08/16 06:10 INR 2.48 (0.92-1.08) H 07/08/16 06:10 APTT 43.4 SECONDS (23.3-32.5) H 07/07/16 12:59 - Respiratory Exam Respiratory Exam: NORMAL BREATHING PATTERN - Cardiovascular Exam Cardiovascular Exam: REGULAR RHYTHM - GI/Abdominal Exam GI & Abdominal Exam: Normal Bowel Sounds Assessment and Plan - Assessment and Plan (Free Text) Assessment: Sepsis/ bacteremia etiol? SBP?? Endocarditis?? Blood C&S Staph coag neg PNA FISH (2nd time) MEL Cefazolin ID Cardiology Cirrhosis Hepatosplenomegaly Portal HTN ascites etiol?? Pancytopenia Low prot/alb s/p paracentesis last admission lasix GI Liver transplant? Hyperkalemia 2 to aldactone? d/c aldactone Kaexylate Nephrology Low back pain etiol? improved Physiatry appreciated R hand weakness as per Neuro A-fib/ rate controlled Amiodorone INR 2.0 Cardiology
== END 2016-07-09 21:50 | disposition home or self-care (01) | DRG 871 ==
LOC: H.ER 01:15 → H.ERHOLD 05:22 → H.TEL 10:21 → OBSVTOIN 06-30 11:40
PROVIDERS: ADMIT Family Medicine Geriatric Medicine; ATTEND Family Medicine Geriatric Medicine
DX: A41.1 Sepsis due to other specified staphylococcus (principal); K65.2 Spontaneous bacterial peritonitis; D61.818 Other pancytopenia; I11.0 Hypertensive heart disease with heart failure; C95.90 Leukemia, unspecified not having achieved remission; R18.8 Other ascites; I50.9 Heart failure, unspecified; E87.5 Hyperkalemia; K76.6 Portal hypertension; K74.60 Unspecified cirrhosis of liver; I48.91 Unspecified atrial fibrillation; D72.829 Elevated white blood cell count, unspecified; R16.2 Hepatomegaly with splenomegaly, not elsewhere classified; R53.1 Weakness; K57.90 Diverticulosis of intestine, part unspecified, without perforation or abscess without bleeding; M19.90 Unspecified osteoarthritis, unspecified site; M48.06 Spinal stenosis, lumbar region; M54.5 Low back pain; W18.30XA Fall on same level, unspecified, initial encounter; Y93.9 Activity, unspecified; Y92.009 Unspecified place in unspecified non-institutional (private) residence as the place of occurrence of the external cause; Y99.9 Unspecified external cause status; B96.89 Other specified bacterial agents as the cause of diseases classified elsewhere

== ENCOUNTER 2016-07-09 22:34 | Inpatient (IN) | payer OTHER, BC ==
[2016-07-09 23:15] VITALS: BMI 32.1
[2016-07-10 00:37] VITALS: RESP 20
[2016-07-10] MEDS: ceFAZolin 2 GM in Sodium Chloride 0.9% 100 ML IVPB SCH ×3 (05:22→21:30)
[2016-07-10] MEDS: Lidocaine 5% Patch TD SCH (09:58)
--- NOTE | 2016-07-10 12:41 | CP.PCM.CON ---
History of Present Illness - History of Present Illness History of Present Illness: ADMITTED TO TCU FOR CONT OF RX HAD POSITIVE BLOOD C/S ON ADMISSION WITH MULTIPLE CULTURES + COAG NEG STAPH ( OXACILLIN SENSITIVE) MEL DONE WAS NEGATIVE AND REPEAT CULTURES NEG THUS FAR SOURCE OF BACTEREMIA REMAINS UNCLEAR PMH- AFIB, CAD, COPD, CIRRHOSIS OF LIVER, OA , HX ORIF LEFT HIP Review of Systems - Constitutional Constitutional: As Per HPI - EENT Eyes: absent: As Per HPI, Blind Spots, Blurred Vision, Change in Vision, Decreased Night Vision, Diplopia, Discharge, Dry Eye, Exophthalmos, Floaters, Irritation, Itchy Eyes, Loss of Peripheral Vision, Pain, Photophobia, Requires Corrective Lenses, Sees Flashes, Spots in Vision, Tunnel Vision, Other Visual Disturbances, Loss of Vision, Other Ears: absent: As Per HPI, Decreased Hearing, Ear Discharge, Ear Pain, Tinnitus, Abnormal Hearing, Disequilibrium, Dizziness, Other Nose/Mouth/Throat: absent: As Per HPI, Epistaxis, Nasal Congestion, Nasal Discharge, Nasal Obstruction, Nasal Trauma, Nose Pain, Post Nasal Drip, Sinus Pain, Sinus Pressure, Bleeding Gums, Change in Voice, Dental Pain, Dry Mouth, Dysphagia, Halitosis, Hoarsness, Lip Swelling, Mouth Lesions, Mouth Pain, Odynophagia, Sore Throat, Throat Swelling, Tongue Swelling, Facial Pain, Neck Pain, Neck Mass, Other - Cardiovascular Cardiovascular: absent: As Per HPI, Acrocyanosis, Chest Pain, Chest Pain at Rest , Chest Pain with Activity, Claudication, Diaphoresis, Dyspnea, Dyspnea on Exertion, Edema, Irregular Heart Rhythm, Pain Radiating to Arm/Neck/Jaw, Leg Edema, Leg Ulcers, Lightheadedness, Orthopnea, Palpitations, Paroxysmal Nocturnal Dyspnea, Pedal Edema, Radiating Pain, Rapid Heart Rate, Slow Heart Rate, Syncope, Other - Respiratory Respiratory: absent: As Per HPI, Cough, Dyspnea, Hemoptysis, Dyspnea on Exertion , Wheezing, Snoring, Stridor, Pain on Inspiration, Chest Congestion, Excessive Mucous Production, Change in Mucous Color, Pain with Coughing, Other - Gastrointestinal Gastrointestinal: absent: As Per HPI, Abdominal Pain, Belching, Bloating, Change in Bowel Habits, Change in Stool Character, Coffee Ground Emesis, Constipation, Cramping, Diarrhea, Dyspepsia, Dysphagia, Early Satiety, Excessive Flatus, Fecal Incontinence, Heartburn, Hematemesis, Hematochezia, Loose Stools, Melena, Nausea, Odynophagia, Temesmus, Vomiting, Other - Genitourinary Genitourinary: absent: As Per HPI, Change in Urinary Stream, Difficulty Urinating, Dysuria, Flank Pain, Hematuria, Pyuria, Nocturia, Urinary Incontinence, Urinary Frequency, Urinary Hesitance, Urinary Urgency, Voiding Freq/Small Amts, Freq UTI, Hx Renal/Bladder Calculi, Hx /Renal Surgery, Bladder Distension, Other - Musculoskeletal Musculoskeletal: absent: As Per HPI, Abnormal Gait, Arthralgias, Atrophy, Back Pain, Deformity, Joint Swelling, Limited Range of Motion, Loss of Height, Muscle Cramps, Muscle Weakness, Myalgias, Neck Pain, Numbness, Radiating Pain into Limb, Stiffness, Tingling, Other - Integumentary Integumentary: absent: As Per HPI, Acne, Alopecia, Bleeding Lesions, Change in Hair, Change in Nails, Change in Pigmentation, Changing Lesions, Dry Skin, Erythema, Furuncle, Hirsutism, Lesions, New Lesions, Non-Healing Lesions, Photosensitivity, Pruritus, Rash, Skin Pain, Skin Ulcer, Sores, Striae, Swelling , Unusual Bruising, Wounds, Jaundice, Other - Neurological Neurological: absent: As Per HPI, Abnormal Gait, Abnormal Hearing, Abnormal Movements, Abnormal Speech, Behavioral Changes, Burning Sensations, Confusion, Convulsions, Disequilibrium, Dizziness, Numbness, Focal Weakness, Frequent Falls , Headaches, Lack of Coordination, Loss of Vision, Memory Loss, Paresthesias, Radicular Pain, Restless Legs, Sensory Deficit, Syncope, Tingling, Tremor, Vertigo, Weakness, Other Visual Disturbances, Other - Psychiatric Psychiatric: absent: As Per HPI, Abnormal Sleep Pattern, Anhedonia, Anxiety, Auditory Hallucinations, Behavioral Changes, Change in Appetite, Change in Libido, Confusion, Depression, Difficulty Concentrating, Hallucinations, Homicidal Ideation, Hopelessness, Irritability, Memory Loss, Mood Swings, Panic Attacks, Paranoia, Suicidal Ideation, Visual Hallucinations, Tactile Hallucinations, Other - Endocrine Endocrine: absent: As Per HPI, Change in Body Appearance, Change in Libido, Cold Intolorance, Deepening of Voice, Excessive Sweating, Fatigue, Flushing, Heat Intolorance, Increase in Ring/Shoe/Hat Size, Palpitations, Polydipsia, Polyphagia, Polyuria, Other - Hematologic/Lymphatic Hematologic: absent: As Per HPI, Easy Bleeding, Easy Bruising, Lymphadenopathy, Other Past Patient History - Past Medical History & Family History Past Medical History?: Yes - Past Social History Smoking Status: Never Smoked - CARDIAC Hx Cardiac Disorders: Yes (afib, HTN) - PULMONARY Hx Respiratory Disorders: No - NEUROLOGICAL Hx Neurological Disorder: No - HEENT Hx HEENT Problems: No - RENAL Hx Chronic Kidney Disease: No - ENDOCRINE/METABOLIC Hx Endocrine Disorders: No - HEMATOLOGICAL/ONCOLOGICAL Hx Blood Disorders: No - INTEGUMENTARY Hx Dermatological Problems: No - MUSCULOSKELETAL/RHEUMATOLOGICAL Hx Back Pain: Yes Hx Falls: No - GASTROINTESTINAL Other/Comment: liver cirrhosis - GENITOURINARY/GYNECOLOGICAL Hx Genitourinary Disorders: No - PSYCHIATRIC Hx Substance Use: No - SURGICAL HISTORY Hx Surgeries: Yes Other/Comment: 2000 arthroscopic knee surgery - ANESTHESIA Hx Anesthesia: Yes Hx Anesthesia Reactions: No Hx Malignant Hyperthermia: No Meds Allergies/Adverse Reactions: Allergies Allergy/AdvReac Type Severity Reaction Status Date / Time No Known Allergies Allergy Verified 05/30/16 15:54 - Medications Medications: Current Medications Amiodarone HCl (Cordarone) 200 mg PO DAILY [facility] Last Admin: 07/10/16 09:58 Dose: 200 mg Aspirin (Ecotrin) 81 mg PO DAILY [facility] Last Admin: 07/10/16 09:59 Dose: 81 mg Furosemide (Lasix) 40 mg PO DAILY [facility] Last Admin: 07/10/16 09:59 Dose: 40 mg Cefazolin Sodium 2 gm/ Sodium (Chloride) 100 mls @ 100 mls/hr IVPB Q8@0500,1300 ,2100 [facility] Last Admin: 07/10/16 05:22 Dose: 100 mls/hr Lidocaine (Lidoderm) 1 ea TD DAILY [facility] Last Admin: 07/10/16 09:58 Dose: 1 ea Tramadol HCl (Ultram) 50 mg PO BID PRN PRN Reason: Pain, moderate (4-7) Physical Exam - Constitutional Appears: Non-toxic, Chronically Ill - Head Exam Head Exam: NORMOCEPHALIC - Eye Exam Eye Exam: PERRL. absent: Scleral icterus - ENT Exam ENT Exam: Mucous Membranes Dry - Neck Exam Neck exam: Negative for: Lymphadenopathy - Respiratory Exam Respiratory Exam: Decreased Breath Sounds, Rhonchi - Cardiovascular Exam Cardiovascular Exam: REGULAR RHYTHM, +S1, +S2 - GI/Abdominal Exam GI & Abdominal Exam: Diminished Bowel Sounds, Distended, Soft. absent: Tenderness - Rectal Exam Rectal Exam: Deferred - Exam Exam: NORMAL INSPECTION - Extremities Exam Extremities exam: Positive for: pedal pulses present. Negative for: calf tenderness, pedal edema, tenderness - Back Exam Back exam: absent: CVA tenderness (L), CVA tenderness (R) - Neurological Exam Neurological exam: Alert, CN II-XII Intact, Oriented x3, Reflexes Normal - Psychiatric Exam Psychiatric exam: Normal Mood - Skin Skin Exam: Dry, Intact Results - Vital Signs Recent Vital Signs: Last Vital Signs Temp 97.5 F L 07/10/16 08:21 Pulse 78 07/10/16 09:58 Resp 20 07/10/16 08:21 BP 109/48 L 07/10/16 09:59 Pulse Ox 91 L 07/10/16 08:21 Assessment & Plan (1) Bacteremia due to Gram-positive bacteria Status: Acute (2) Cirrhosis of liver with ascites Status: Acute - Assessment and Plan (Free Text) Assessment: WILL REVIEW [facility] IV ANTIBITICS REPEAT CULTURES
--- NOTE | 2016-07-10 22:58 | CP.PCM.HP ---
History of Present Illness - History of Present Illness History of Present Illness: 71 yo admitted to TCU for deconditioning Present on Admission - Present on Admission Any Indicators Present on Admission: No Past Patient History - Past Medical History & Family History Past Medical History?: Yes - Past Social History Smoking Status: Never Smoked - CARDIAC Hx Cardiac Disorders: Yes (afib, HTN) - PULMONARY Hx Respiratory Disorders: No - NEUROLOGICAL Hx Neurological Disorder: No - HEENT Hx HEENT Problems: No - RENAL Hx Chronic Kidney Disease: No - ENDOCRINE/METABOLIC Hx Endocrine Disorders: No - HEMATOLOGICAL/ONCOLOGICAL Hx Blood Disorders: No - INTEGUMENTARY Hx Dermatological Problems: No - MUSCULOSKELETAL/RHEUMATOLOGICAL Hx Back Pain: Yes Hx Falls: No - GASTROINTESTINAL Other/Comment: liver cirrhosis - GENITOURINARY/GYNECOLOGICAL Hx Genitourinary Disorders: No - PSYCHIATRIC Hx Substance Use: No - SURGICAL HISTORY Hx Surgeries: Yes Other/Comment: 2000 arthroscopic knee surgery - ANESTHESIA Hx Anesthesia: Yes Hx Anesthesia Reactions: No Hx Malignant Hyperthermia: No Meds Allergies/Adverse Reactions: Allergies Allergy/AdvReac Type Severity Reaction Status Date / Time No Known Allergies Allergy Verified 05/30/16 15:54 Physical Exam - Respiratory Exam Respiratory Exam: NORMAL BREATHING PATTERN - Cardiovascular Exam Cardiovascular Exam: REGULAR RHYTHM - GI/Abdominal Exam GI & Abdominal Exam: Normal Bowel Sounds Results - Vital Signs Recent Vital Signs: Last Vital Signs Temp 97.7 F 07/10/16 20:40 Pulse 76 07/10/16 20:40 Resp 20 07/10/16 20:40 BP 111/42 L 07/10/16 20:40 Pulse Ox 97 07/10/16 20:40 Assessment & Plan - Assessment and Plan (Free Text) Assessment: Dceonditioning TCU Sepsis/ bacteremia etiol? SBP?? Endocarditis?? Blood C&S Staph coag neg PNA FISH (2nd time) MEL negative Cefazolin ID Cardiology Cirrhosis Hepatosplenomegaly Portal HTN ascites etiol?? Pancytopenia Low prot/alb s/p paracentesis last admission lasix GI Liver transplant? Hyperkalemia 2 to aldactone? d/c aldactone Kaexylate Nephrology Low back pain etiol? improved Physiatry appreciated R hand weakness as per Neuro A-fib/ rate controlled Amiodorone INR 2.0 Cardiology
[2016-07-11] MEDS: ceFAZolin 2 GM in Sodium Chloride 0.9% 100 ML IVPB SCH ×3 (04:39→21:11)
[2016-07-11 07:28] LABS: BASO # 0.1 K/uL (0.0-0.2); BASO % 0.9 % (0.0-2.0); EOS # 0.5 K/uL (0.0-0.7); EOS % 4.9 % (0.0-4.0); HEMATOCRIT 30.3 % (35.0-51.0); LYMPH # 1.4 K/uL (1.0-4.3); LYMPH % 14.4 % (20.0-40.0); MEAN CORPUSCULAR HEMOGLOBIN 34.7 pg (27.0-31.0); MEAN CORPUSCULAR HGB CONC 33.8 g/dL (33.0-37.0); MEAN PLATELET VOLUME 9.1 fl (7.2-11.7); MONO # 1.2 K/uL (0.0-0.8); MONO % 11.9 % (0.0-10.0); NEUT # 6.8 K/uL (1.8-7.0); NEUT % 67.9 % (50.0-75.0); NRBC % 0.2 % (0.0-0.0); RED CELL DISTRIBUTION WIDTH 18.3 % (11.5-14.5); WHITE BLOOD COUNT 10.1 K/uL (4.8-10.8)
[2016-07-11 07:31] LABS: MEAN CELL VOLUME 102.5 fl (80.0-94.0)
[2016-07-11 07:35] LABS: ALB/GLOB RATIO 0.4 (1.0-2.1); ALKALINE PHOSPHATASE 95 U/L (38-126); ALT/SGPT 15 U/L (21-72); AST/SGOT 51 U/L (17-59); BILIRUBIN,TOTAL 2.5 mg/dl (0.2-1.3); BLOOD UREA NITROGEN 34 mg/dl (9-20); CALCIUM 7.5 mg/dL (8.4-10.2); CARBON DIOXIDE 25 mmol/L (22-30); CHLORIDE 108 mmol/L (98-107); GFR AFRICAN-AMERICAN > 60; GLUCOSE,RANDOM 68 mg/dL (75-110); POTASSIUM 4.5 MMOL/L (3.6-5.0); SODIUM 142 mmol/l (132-148); TOTAL PROTEIN 7.1 G/DL (6.3-8.2)
[2016-07-11] MEDS: Lidocaine 5% Patch TD SCH (09:08)
--- NOTE | 2016-07-11 09:52 | CP.PCM.CON ---
History of Present Illness - History of Present Illness History of Present Illness: THE PATIENT IS A 71 YEAR OLD MALE WHO HAS A HISTORY OF ATRIAL FIBRILLATION TREATED WITH AMIODARONE AND IS NOW IN SINUS RHYTHM, HYPERTENSION, CIRRHOSIS OF THE LIVER WITH ASCITES, DISC DISEASE AND WAS ADMITTED TO [facility] RECENTLY FOR A FALL WITH RESULTANT BACK PAIN. HE WAS FOUND TO HAVE COAGULASE NEGATIVE GRAM POSITIVE STAPH BACTEREMIA AND TREATED WITH IV ANTIBIOTICS. HE HAD A MEL DONE THAT WAS NEGATIVE FOR VEGETATIONS. HE WAS DISCHARGED TO TCU FOR SUBACUTE REHAB DUE TO HIS BACK INJURY ON 07/09/16 AND CARDIOLOGY IS NOW ASKED TO FOLLOW HIM. HE DENIES ANY PALPITATIONS, CHEST PAIN OR SOB. HIS MAJOR COMPLAINT IS HIS BACK PAIN. Past Patient History - Past Medical History & Family History Past Medical History?: Yes - Past Social History Smoking Status: Never Smoked - CARDIAC Hx Cardiac Disorders: Yes (afib, HTN) - PULMONARY Hx Respiratory Disorders: No - NEUROLOGICAL Hx Neurological Disorder: No - HEENT Hx HEENT Problems: No - RENAL Hx Chronic Kidney Disease: No - ENDOCRINE/METABOLIC Hx Endocrine Disorders: No - HEMATOLOGICAL/ONCOLOGICAL Hx Blood Disorders: No - INTEGUMENTARY Hx Dermatological Problems: No - MUSCULOSKELETAL/RHEUMATOLOGICAL Hx Back Pain: Yes Hx Falls: No - GASTROINTESTINAL Other/Comment: liver cirrhosis - GENITOURINARY/GYNECOLOGICAL Hx Genitourinary Disorders: No - PSYCHIATRIC Hx Substance Use: No - SURGICAL HISTORY Hx Surgeries: Yes Other/Comment: 2000 arthroscopic knee surgery - ANESTHESIA Hx Anesthesia: Yes Hx Anesthesia Reactions: No Hx Malignant Hyperthermia: No Meds Allergies/Adverse Reactions: Allergies Allergy/AdvReac Type Severity Reaction Status Date / Time No Known Allergies Allergy Verified 05/30/16 15:54 - Medications Medications: Current Medications Amiodarone HCl (Cordarone) 200 mg PO DAILY [facility] Last Admin: 07/11/16 09:08 Dose: 200 mg Aspirin (Ecotrin) 81 mg PO DAILY [facility] Last Admin: 07/11/16 09:08 Dose: 81 mg Furosemide (Lasix) 40 mg PO DAILY [facility] Last Admin: 07/11/16 09:08 Dose: 40 mg Cefazolin Sodium 2 gm/ Sodium (Chloride) 100 mls @ 100 mls/hr IVPB Q8@0500,1300 ,2100 [facility] Last Admin: 07/11/16 04:39 Dose: 100 mls/hr Lidocaine (Lidoderm) 1 ea TD DAILY [facility] Last Admin: 07/11/16 09:08 Dose: Not Given Tramadol HCl (Ultram) 50 mg PO BID PRN PRN Reason: Pain, moderate (4-7) Physical Exam - Respiratory Exam Respiratory Exam: Clear to Auscultation Bilateral - Cardiovascular Exam Cardiovascular Exam: REGULAR RHYTHM, +S1, +S2 - Extremities Exam Additional comments: TRACE EDEMA OF BOTH LE Results - Vital Signs Recent Vital Signs: Last Vital Signs Temp 98.2 F 07/11/16 08:47 Pulse 77 07/11/16 09:08 Resp 20 07/11/16 08:47 BP 102/52 L 07/11/16 09:08 Pulse Ox 99 07/11/16 08:47 - Labs Result Diagrams: 07/11/16 07:03 07/11/16 07:03 Labs: Laboratory Results - last 24 hr 07/11/16 07:03 WBC 10.1 RBC 2.95 L Hgb 10.2 L Hct 30.3 L MCV 102.5 H MCH 34.7 H MCHC 33.8 RDW 18.3 H Plt Count 89 L MPV 9.1 Neut % (Auto) 67.9 Lymph % (Auto) 14.4 L [place] % (Auto) 11.9 H Eos % (Auto) 4.9 H Baso % (Auto) 0.9 Neut # 6.8 Lymph # 1.4 [place] # 1.2 H Eos # 0.5 Baso # 0.1 ESR 73 H Sodium 142 Potassium 4.5 Chloride 108 H Carbon Dioxide 25 Anion Gap 14 BUN 34 H Creatinine 1.0 Est GFR ( Amer) > 60 Est GFR (Non-Af Amer) > 60 Random Glucose 68 L Calcium 7.5 L Total Bilirubin 2.5 H AST 51 ALT 15 L D Alkaline Phosphatase 95 Total Protein 7.1 Albumin 1.9 L Globulin 5.1 H Albumin/Globulin Ratio 0.4 L Assessment & Plan - Assessment and Plan (Free Text) Assessment: S/P ATRIAL FIBRILLATION-NOW IN NSR HYPERTENSION HISTORY CIRRHOSIS OF THE LIVER BACTEREMIA FALL WITH BACK PAIN AND PRIOR DISC DISEASE Plan: CONTINUE ASPIRIN, AMIODARONE AND FUROSEMIDE ANTIBIOTICS PER ID
--- NOTE | 2016-07-11 13:42 | CP.PCM.CON ---
History of Present Illness - History of Present Illness History of Present Illness: Mr. Martir Montesinos is a 71-year-old man with a past medical history of hepatic cirrhosis, who was previously admitted for sepsis and hyperkalemia and required acute management. During his previous hospitalization, he had developed right hand swelling, pain and weakness. These symptoms were evaluated by me and were thought to be due to either tendonitis or neuropathy due to either mechanical injury or metabolic causes. Today, the patient states that his weakness is completely resolved and he no longer has pain or swelling. He states that this improvement mostly occurred yesterday. He denied any arm pain/weakness, numbness, headache, chest pain, shortness of breath, visual changes, abdominal pain or any other associated symptoms. Review of Systems - Review of Systems All systems: reviewed and no additional remarkable complaints except Past Patient History - Past Medical History & Family History Past Medical History?: Yes - Past Social History Smoking Status: Never Smoked - CARDIAC Hx Cardiac Disorders: Yes (afib, HTN) - PULMONARY Hx Respiratory Disorders: No - NEUROLOGICAL Hx Neurological Disorder: No - HEENT Hx HEENT Problems: No - RENAL Hx Chronic Kidney Disease: No - ENDOCRINE/METABOLIC Hx Endocrine Disorders: No - HEMATOLOGICAL/ONCOLOGICAL Hx Blood Disorders: No - INTEGUMENTARY Hx Dermatological Problems: No - MUSCULOSKELETAL/RHEUMATOLOGICAL Hx Back Pain: Yes Hx Falls: No - GASTROINTESTINAL Other/Comment: liver cirrhosis - GENITOURINARY/GYNECOLOGICAL Hx Genitourinary Disorders: No - PSYCHIATRIC Hx Substance Use: No - SURGICAL HISTORY Hx Surgeries: Yes Other/Comment: 2000 arthroscopic knee surgery - ANESTHESIA Hx Anesthesia: Yes Hx Anesthesia Reactions: No Hx Malignant Hyperthermia: No Meds Allergies/Adverse Reactions: Allergies Allergy/AdvReac Type Severity Reaction Status Date / Time No Known Allergies Allergy Verified 05/30/16 15:54 - Medications Medications: Current Medications Amiodarone HCl (Cordarone) 200 mg PO DAILY [facility] Last Admin: 07/11/16 09:08 Dose: 200 mg Aspirin (Ecotrin) 81 mg PO DAILY [facility] Last Admin: 07/11/16 09:08 Dose: 81 mg Furosemide (Lasix) 40 mg PO DAILY [facility] Last Admin: 07/11/16 09:08 Dose: 40 mg Cefazolin Sodium 2 gm/ Sodium (Chloride) 100 mls @ 100 mls/hr IVPB Q8@0500,1300 ,2100 [facility] Last Admin: 07/11/16 12:35 Dose: 100 mls/hr Lidocaine (Lidoderm) 1 ea TD DAILY [facility] Last Admin: 07/11/16 09:08 Dose: Not Given Tramadol HCl (Ultram) 50 mg PO BID PRN PRN Reason: Pain, moderate (4-7) Physical Exam - Constitutional Appears: Well - Head Exam Head Exam: ATRAUMATIC, NORMAL INSPECTION, NORMOCEPHALIC - Eye Exam Eye Exam: EOMI, Normal appearance, PERRL - ENT Exam ENT Exam: Mucous Membranes Moist, Normal Exam - Neck Exam Neck exam: Positive for: Normal Inspection - Respiratory Exam Respiratory Exam: Clear to Auscultation Bilateral, NORMAL BREATHING PATTERN - Cardiovascular Exam Cardiovascular Exam: REGULAR RHYTHM - GI/Abdominal Exam GI & Abdominal Exam: Normal Bowel Sounds, Soft. 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 Sensation is intact throughout to LT/P/T/V. - Psychiatric Exam Psychiatric exam: Normal Affect, Normal Mood Results - Vital Signs Recent Vital Signs: Last Vital Signs Temp 98.2 F 07/11/16 08:47 Pulse 77 07/11/16 09:08 Resp 20 07/11/16 08:47 BP 102/52 L 07/11/16 09:08 Pulse Ox 99 07/11/16 08:47 - Labs Result Diagrams: 07/11/16 07:03 07/11/16 07:03 Labs: Laboratory Results - last 24 hr 07/11/16 07:03 WBC 10.1 RBC 2.95 L Hgb 10.2 L Hct 30.3 L MCV 102.5 H MCH 34.7 H MCHC 33.8 RDW 18.3 H Plt Count 89 L MPV 9.1 Neut % (Auto) 67.9 Lymph % (Auto) 14.4 L [place] % (Auto) 11.9 H Eos % (Auto) 4.9 H Baso % (Auto) 0.9 Neut # 6.8 Lymph # 1.4 [place] # 1.2 H Eos # 0.5 Baso # 0.1 ESR 73 H Sodium 142 Potassium 4.5 Chloride 108 H Carbon Dioxide 25 Anion Gap 14 BUN 34 H Creatinine 1.0 Est GFR ( Amer) > 60 Est GFR (Non-Af Amer) > 60 Random Glucose 68 L Calcium 7.5 L Total Bilirubin 2.5 H AST 51 ALT 15 L D Alkaline Phosphatase 95 Total Protein 7.1 Albumin 1.9 L Globulin 5.1 H Albumin/Globulin Ratio 0.4 L Assessment & Plan (1) Right hand weakness Assessment and Plan: The resolution of symptoms likely confirms that it was mechanical in nature and has probably healed. However, if the symptoms return or become prolonged, we may consider further investigation with nerve conduction studies or EMG. No further recommendations at this time. Thank you very much for this consultation. Status: Resolved
--- NOTE | 2016-07-11 20:33 | CP.PCM.PN ---
Subjective - Date & Time of Evaluation Date of Evaluation: 07/11/16 Time of Evaluation: 22:22 - Subjective Subjective: Above noted Objective - Vital Signs/Intake and Output Vital Signs (last 24 hours): Temp Pulse Resp BP Pulse Ox 97.9 F 83 20 121/93 H 97 07/11/16 16:36 07/11/16 16:36 07/11/16 16:36 07/11/16 16:36 07/11/16 16:36 - Medications Medications: Current Medications Amiodarone HCl (Cordarone) 200 mg PO DAILY [facility] Last Admin: 07/11/16 09:08 Dose: 200 mg Aspirin (Ecotrin) 81 mg PO DAILY [facility] Last Admin: 07/11/16 09:08 Dose: 81 mg Furosemide (Lasix) 40 mg PO DAILY [facility] Last Admin: 07/11/16 09:08 Dose: 40 mg Cefazolin Sodium 2 gm/ Sodium (Chloride) 100 mls @ 100 mls/hr IVPB Q8@0500,1300 ,2100 [facility] Last Admin: 07/11/16 12:35 Dose: 100 mls/hr Lidocaine (Lidoderm) 1 ea TD DAILY [facility] Last Admin: 07/11/16 09:08 Dose: Not Given Tramadol HCl (Ultram) 50 mg PO BID PRN PRN Reason: Pain, moderate (4-7) - Labs Labs: 07/11/16 07:03 07/11/16 07:03 - Respiratory Exam Respiratory Exam: NORMAL BREATHING PATTERN - Cardiovascular Exam Cardiovascular Exam: REGULAR RHYTHM - GI/Abdominal Exam GI & Abdominal Exam: Normal Bowel Sounds Assessment and Plan - Assessment and Plan (Free Text) Assessment: Dceonditioning TCU Sepsis/ bacteremia etiol? SBP?? Endocarditis?? Blood C&S Staph coag neg PNA FISH (2nd time) MEL negative Cefazolin ID Cardiology Cirrhosis Hepatosplenomegaly Portal HTN ascites etiol?? Pancytopenia Low prot/alb s/p paracentesis last admission lasix GI Liver transplant? Hyperkalemia 2 to aldactone? d/c aldactone Kaexylate Nephrology Low back pain etiol? improved Physiatry appreciated R hand weakness as per Neuro A-fib/ rate controlled Amiodorone INR 2.0 Cardiology
[2016-07-12] MEDS: ceFAZolin 2 GM in Sodium Chloride 0.9% 100 ML IVPB SCH ×3 (05:00→21:37)
[2016-07-12] MEDS: Lidocaine 5% Patch TD SCH (08:54)
--- NOTE | 2016-07-12 11:01 | CP.PCM.PN ---
Subjective - Date & Time of Evaluation Date of Evaluation: 07/12/16 Time of Evaluation: 09:00 - Subjective Subjective: NO CHEST PAIN OR SOB FEELS A LITTLE BETTER AND AMBULATING WITH PHYSICAL THERAPY Objective - Vital Signs/Intake and Output Vital Signs (last 24 hours): Temp Pulse Resp BP Pulse Ox 97.7 F 78 20 105/56 L 99 07/12/16 08:22 07/12/16 08:22 07/12/16 08:22 07/12/16 08:22 07/12/16 08:22 - Medications Medications: Current Medications Amiodarone HCl (Cordarone) 200 mg PO DAILY [facility] Last Admin: 07/12/16 08:51 Dose: 200 mg Aspirin (Ecotrin) 81 mg PO DAILY [facility] Last Admin: 07/12/16 08:53 Dose: 81 mg Furosemide (Lasix) 40 mg PO DAILY [facility] Last Admin: 07/12/16 08:53 Dose: 40 mg Cefazolin Sodium 2 gm/ Sodium (Chloride) 100 mls @ 100 mls/hr IVPB Q8@0500,1300 ,2100 [facility] Last Admin: 07/12/16 05:00 Dose: 100 mls/hr Lidocaine (Lidoderm) 1 ea TD DAILY [facility] Last Admin: 07/12/16 08:54 Dose: 1 ea Tramadol HCl (Ultram) 50 mg PO BID PRN PRN Reason: Pain, moderate (4-7) - Labs Labs: 07/11/16 07:03 07/11/16 07:03 - Respiratory Exam Respiratory Exam: Clear to Ausculation Bilateral - Cardiovascular Exam Cardiovascular Exam: REGULAR RHYTHM, +S1, +S2 Assessment and Plan - Assessment and Plan (Free Text) Assessment: DECONDITIONING AND FALL WITH BACK INJURY S/P ATRIAL FIBRILLATION-NOW IN NSR CIRRHOSIS OF THE LIVER Plan: CONTINUE AMIODARONE, ASPIRIN AND FUROSEMIDE CONTINUE PHYSICAL THERAPY
--- NOTE | 2016-07-12 20:11 | CP.PCM.PN ---
Subjective - Date & Time of Evaluation Date of Evaluation: 07/12/16 Time of Evaluation: 22:22 - Subjective Subjective: Above noted Objective - Vital Signs/Intake and Output Vital Signs (last 24 hours): Temp Pulse Resp BP Pulse Ox 97.7 F 83 20 103/45 L 98 07/12/16 16:59 07/12/16 16:59 07/12/16 16:59 07/12/16 16:59 07/12/16 16:59 - Medications Medications: Current Medications Amiodarone HCl (Cordarone) 200 mg PO DAILY [facility] Last Admin: 07/12/16 08:51 Dose: 200 mg Aspirin (Ecotrin) 81 mg PO DAILY [facility] Last Admin: 07/12/16 08:53 Dose: 81 mg Furosemide (Lasix) 40 mg PO DAILY [facility] Last Admin: 07/12/16 08:53 Dose: 40 mg Cefazolin Sodium 2 gm/ Sodium (Chloride) 100 mls @ 100 mls/hr IVPB Q8@0500,1300 ,2100 [facility] Last Admin: 07/12/16 12:38 Dose: 100 mls/hr Lidocaine (Lidoderm) 1 ea TD DAILY [facility] Last Admin: 07/12/16 08:54 Dose: 1 ea Tramadol HCl (Ultram) 50 mg PO BID PRN PRN Reason: Pain, moderate (4-7) - Labs Labs: 07/11/16 07:03 07/11/16 07:03 - Respiratory Exam Respiratory Exam: NORMAL BREATHING PATTERN - Cardiovascular Exam Cardiovascular Exam: REGULAR RHYTHM - GI/Abdominal Exam GI & Abdominal Exam: Normal Bowel Sounds Assessment and Plan - Assessment and Plan (Free Text) Assessment: Dceonditioning TCU Sepsis/ bacteremia etiol? SBP?? Endocarditis?? Blood C&S Staph coag neg PNA FISH (2nd time) MEL negative Cefazolin ID Cardiology Cirrhosis Hepatosplenomegaly Portal HTN ascites etiol?? Pancytopenia Low prot/alb s/p paracentesis last admission lasix GI Liver transplant? Hyperkalemia 2 to aldactone? d/c aldactone Kaexylate Nephrology Low back pain etiol? improved Physiatry appreciated R hand weakness as per Neuro A-fib/ rate controlled Amiodorone INR 2.0 Cardiology
[2016-07-13] MEDS: ceFAZolin 2 GM in Sodium Chloride 0.9% 100 ML IVPB SCH ×3 (04:47→21:30)
[2016-07-13] MEDS: Lidocaine 5% Patch TD SCH (08:36)
--- NOTE | 2016-07-13 16:41 | CP.PCM.PN ---
Subjective - Date & Time of Evaluation Date of Evaluation: 07/13/16 Time of Evaluation: 10:00 - Subjective Subjective: NO CHEST PAIN, PALPITATIONS OR SOB DOING WELL WITH PHYSICAL THERAPY Objective - Vital Signs/Intake and Output Vital Signs (last 24 hours): Temp Pulse Resp BP Pulse Ox 98.1 F 87 20 127/54 L 95 07/13/16 15:47 07/13/16 15:47 07/13/16 15:47 07/13/16 15:47 07/13/16 15:47 - Medications Medications: Current Medications Amiodarone HCl (Cordarone) 200 mg PO DAILY [facility] Last Admin: 07/13/16 08:35 Dose: 200 mg Aspirin (Ecotrin) 81 mg PO DAILY [facility] Last Admin: 07/13/16 08:35 Dose: 81 mg Furosemide (Lasix) 40 mg PO DAILY [facility] Last Admin: 07/13/16 08:35 Dose: 40 mg Cefazolin Sodium 2 gm/ Sodium (Chloride) 100 mls @ 100 mls/hr IVPB Q8@0500,1300 ,2100 [facility] Last Admin: 07/13/16 13:19 Dose: 100 mls/hr Lidocaine (Lidoderm) 1 ea TD DAILY [facility] Last Admin: 07/13/16 08:36 Dose: Not Given - Labs Labs: 07/11/16 07:03 07/11/16 07:03 - Respiratory Exam Respiratory Exam: Clear to Ausculation Bilateral - Cardiovascular Exam Cardiovascular Exam: REGULAR RHYTHM, +S1, +S2 Assessment and Plan - Assessment and Plan (Free Text) Assessment: DECONDITIONING AND FALL WITH BACK INJURY A/P ATRIAL FIBRILLATION-NOW IN NSR CIRRHOSIS OF THE LIVER Plan: CONTINUE AMIODARONE, ASPIRIN AND FUROSEMIDE CONTINUE PHYSICAL THERAPY
--- NOTE | 2016-07-13 17:47 | CP.PCM.CON ---
History of Present Illness - History of Present Illness History of Present Illness: Dr Gonzalez consultation on Melania Montesinos, born 1945, who has been admitted to the TCU. He had noted bacteremia and LBP. Seen by ID and MEL also done which was negative for vegetations. Pain is much better controlled and ambulating 200' with RW in therapy and doing stairs as well Review of Systems - Constitutional Constitutional: absent: Anorexia, Chills - Cardiovascular Cardiovascular: absent: Chest Pain - Respiratory Respiratory: absent: Hemoptysis - Gastrointestinal Gastrointestinal: Belching Past Patient History - Past Medical History & Family History Past Medical History?: Yes - Past Social History Smoking Status: Never Smoked - CARDIAC Hx Cardiac Disorders: Yes (afib, HTN) - PULMONARY Hx Respiratory Disorders: No - NEUROLOGICAL Hx Neurological Disorder: No - HEENT Hx HEENT Problems: No - RENAL Hx Chronic Kidney Disease: No - ENDOCRINE/METABOLIC Hx Endocrine Disorders: No - HEMATOLOGICAL/ONCOLOGICAL Hx Blood Disorders: No - INTEGUMENTARY Hx Dermatological Problems: No - MUSCULOSKELETAL/RHEUMATOLOGICAL Hx Back Pain: Yes Hx Falls: No - GASTROINTESTINAL Other/Comment: liver cirrhosis - GENITOURINARY/GYNECOLOGICAL Hx Genitourinary Disorders: No - PSYCHIATRIC Hx Substance Use: No - SURGICAL HISTORY Hx Surgeries: Yes Other/Comment: 2000 arthroscopic knee surgery - ANESTHESIA Hx Anesthesia: Yes Hx Anesthesia Reactions: No Hx Malignant Hyperthermia: No Meds Allergies/Adverse Reactions: Allergies Allergy/AdvReac Type Severity Reaction Status Date / Time No Known Allergies Allergy Verified 05/30/16 15:54 - Medications Medications: Current Medications Amiodarone HCl (Cordarone) 200 mg PO DAILY [facility] Last Admin: 07/13/16 08:35 Dose: 200 mg Aspirin (Ecotrin) 81 mg PO DAILY [facility] Last Admin: 07/13/16 08:35 Dose: 81 mg Furosemide (Lasix) 40 mg PO DAILY [facility] Last Admin: 07/13/16 08:35 Dose: 40 mg Cefazolin Sodium 2 gm/ Sodium (Chloride) 100 mls @ 100 mls/hr IVPB Q8@0500,1300 ,2100 [facility] Last Admin: 07/13/16 13:19 Dose: 100 mls/hr Lidocaine (Lidoderm) 1 ea TD DAILY [facility] Last Admin: 07/13/16 08:36 Dose: Not Given Physical Exam - Constitutional Appears: Other (obese) - Head Exam Head Exam: ATRAUMATIC, NORMAL INSPECTION, NORMOCEPHALIC - Eye Exam Eye Exam: EOMI - Respiratory Exam Respiratory Exam: NORMAL BREATHING PATTERN - Cardiovascular Exam Cardiovascular Exam: REGULAR RHYTHM Results - Vital Signs Recent Vital Signs: Last Vital Signs Temp 98.1 F 07/13/16 15:47 Pulse 87 07/13/16 15:47 Resp 20 07/13/16 15:47 BP 127/54 L 07/13/16 15:47 Pulse Ox 95 07/13/16 15:47 - Labs Result Diagrams: 07/11/16 07:03 07/11/16 07:03 Assessment & Plan - Assessment and Plan (Free Text) Assessment: LBP, getting much better and function improved as well he is looking forward to getting home soon. continue PT/OT
--- NOTE | 2016-07-13 19:53 | CP.PCM.PN ---
Subjective - Date & Time of Evaluation Date of Evaluation: 07/13/16 Time of Evaluation: 22:22 - Subjective Subjective: continues to improve Objective - Vital Signs/Intake and Output Vital Signs (last 24 hours): Temp Pulse Resp BP Pulse Ox 98.1 F 87 20 127/54 L 95 07/13/16 15:47 07/13/16 15:47 07/13/16 15:47 07/13/16 15:47 07/13/16 15:47 - Medications Medications: Current Medications Amiodarone HCl (Cordarone) 200 mg PO DAILY [facility] Last Admin: 07/13/16 08:35 Dose: 200 mg Aspirin (Ecotrin) 81 mg PO DAILY [facility] Last Admin: 07/13/16 08:35 Dose: 81 mg Furosemide (Lasix) 40 mg PO DAILY [facility] Last Admin: 07/13/16 08:35 Dose: 40 mg Cefazolin Sodium 2 gm/ Sodium (Chloride) 100 mls @ 100 mls/hr IVPB Q8@0500,1300 ,2100 [facility] Last Admin: 07/13/16 13:19 Dose: 100 mls/hr Lidocaine (Lidoderm) 1 ea TD DAILY [facility] Last Admin: 07/13/16 08:36 Dose: Not Given - Labs Labs: 07/11/16 07:03 07/11/16 07:03 - Respiratory Exam Respiratory Exam: NORMAL BREATHING PATTERN - Cardiovascular Exam Cardiovascular Exam: REGULAR RHYTHM - GI/Abdominal Exam GI & Abdominal Exam: Normal Bowel Sounds Assessment and Plan - Assessment and Plan (Free Text) Assessment: Dceonditioning TCU Sepsis/ bacteremia etiol? SBP?? Endocarditis?? Blood C&S Staph coag neg PNA FISH (2nd time) MEL negative IV Cefazolin ID Cardiology Cirrhosis Hepatosplenomegaly Portal HTN ascites etiol?? Pancytopenia Low prot/alb s/p paracentesis last admission lasix GI Liver transplant? Hyperkalemia 2 to aldactone? d/c aldactone Kaexylate Nephrology Low back pain etiol? improved Physiatry appreciated R hand weakness as per Neuro A-fib/ rate controlled Amiodorone INR 2.0 Cardiology
[2016-07-14] MEDS: ceFAZolin 2 GM in Sodium Chloride 0.9% 100 ML IVPB SCH ×3 (05:38→20:45)
[2016-07-14] MEDS: Lidocaine 5% Patch TD SCH (09:21)
--- NOTE | 2016-07-14 10:51 | CP.PCM.PN ---
Subjective - Date & Time of Evaluation Date of Evaluation: 07/14/16 Time of Evaluation: 08:30 - Subjective Subjective: NO CHEST PAIN, PALPITATIONS OR SOB Objective - Vital Signs/Intake and Output Vital Signs (last 24 hours): Temp Pulse Resp BP Pulse Ox 97.0 F L 83 20 108/59 L 100 07/14/16 08:27 07/14/16 09:23 07/14/16 08:27 07/14/16 09:23 07/14/16 08:27 - Medications Medications: Current Medications Amiodarone HCl (Cordarone) 200 mg PO DAILY [facility] Last Admin: 07/14/16 09:23 Dose: 200 mg Aspirin (Ecotrin) 81 mg PO DAILY [facility] Last Admin: 07/14/16 09:22 Dose: 81 mg Furosemide (Lasix) 40 mg PO DAILY [facility] Last Admin: 07/14/16 09:22 Dose: 40 mg Cefazolin Sodium 2 gm/ Sodium (Chloride) 100 mls @ 100 mls/hr IVPB Q8@0500,1300 ,2100 [facility] Last Admin: 07/14/16 05:38 Dose: 100 mls/hr Lidocaine (Lidoderm) 1 ea TD DAILY [facility] Last Admin: 07/14/16 09:21 Dose: 1 ea - Labs Labs: 07/11/16 07:03 07/11/16 07:03 - Respiratory Exam Respiratory Exam: Clear to Ausculation Bilateral - Cardiovascular Exam Cardiovascular Exam: REGULAR RHYTHM, +S1, +S2 Assessment and Plan - Assessment and Plan (Free Text) Assessment: DECONDITIONING FALL WITH BACK INJURY S/P ATRIAL FIBRILLATION-NOW IN NSR CIRRHOSIS OF THE LIVER Plan: CONTINUE AMIODARONE, FUROSEMIDE AND ASPIRIN ANTIBIOTICS PER ID CONTINUE PHYSICAL THERAPY
--- NOTE | 2016-07-14 20:29 | CP.PCM.PN ---
Subjective - Date & Time of Evaluation Date of Evaluation: 07/14/16 Time of Evaluation: 22:22 - Subjective Subjective: Doing well Objective - Vital Signs/Intake and Output Vital Signs (last 24 hours): Temp Pulse Resp BP Pulse Ox 98.1 F 85 20 100/46 L 97 07/14/16 16:43 07/14/16 16:43 07/14/16 16:43 07/14/16 16:43 07/14/16 16:43 - Medications Medications: Current Medications Amiodarone HCl (Cordarone) 200 mg PO DAILY [facility] Last Admin: 07/14/16 09:23 Dose: 200 mg Aspirin (Ecotrin) 81 mg PO DAILY [facility] Last Admin: 07/14/16 09:22 Dose: 81 mg Furosemide (Lasix) 40 mg PO DAILY [facility] Last Admin: 07/14/16 09:22 Dose: 40 mg Cefazolin Sodium 2 gm/ Sodium (Chloride) 100 mls @ 100 mls/hr IVPB 0500,1300, 2100 [facility] Last Admin: 07/14/16 14:15 Dose: 100 mls/hr Lidocaine (Lidoderm) 1 ea TD DAILY [facility] Last Admin: 07/14/16 09:21 Dose: 1 ea - Labs Labs: 07/11/16 07:03 07/11/16 07:03 - Respiratory Exam Respiratory Exam: NORMAL BREATHING PATTERN - Cardiovascular Exam Cardiovascular Exam: REGULAR RHYTHM - GI/Abdominal Exam GI & Abdominal Exam: Normal Bowel Sounds Assessment and Plan - Assessment and Plan (Free Text) Assessment: Dceonditioning TCU Sepsis/ bacteremia etiol? SBP?? Endocarditis?? Blood C&S Staph coag neg PNA FISH (2nd time) MEL negative IV Cefazolin ID Cardiology Cirrhosis Hepatosplenomegaly Portal HTN ascites etiol?? Pancytopenia Low prot/alb s/p paracentesis last admission lasix GI Liver transplant? Hyperkalemia 2 to aldactone? d/c aldactone Kaexylate Nephrology Low back pain etiol? improved Physiatry appreciated R hand weakness as per Neuro A-fib/ rate controlled Amiodorone INR 2.0 Cardiology
[2016-07-15] MEDS: ceFAZolin 2 GM in Sodium Chloride 0.9% 100 ML IVPB SCH ×3 (05:53→22:04)
[2016-07-15] MEDS: Lidocaine 5% Patch TD SCH (08:52)
--- NOTE | 2016-07-15 10:10 | CP.PCM.PN ---
Subjective - Date & Time of Evaluation Date of Evaluation: 07/15/16 Time of Evaluation: 09:00 - Subjective Subjective: NO CHEST PAIN, PALPITATIONS OR SOB Objective - Vital Signs/Intake and Output Vital Signs (last 24 hours): Temp Pulse Resp BP Pulse Ox 98.2 F 84 20 118/49 L 96 07/15/16 09:00 07/15/16 09:00 07/15/16 09:00 07/15/16 09:00 07/15/16 09:00 - Medications Medications: Current Medications Amiodarone HCl (Cordarone) 200 mg PO DAILY [facility] Last Admin: 07/15/16 08:51 Dose: 200 mg Aspirin (Ecotrin) 81 mg PO DAILY [facility] Last Admin: 07/15/16 08:51 Dose: 81 mg Furosemide (Lasix) 40 mg PO DAILY [facility] Last Admin: 07/15/16 08:52 Dose: 40 mg Cefazolin Sodium 2 gm/ Sodium (Chloride) 100 mls @ 100 mls/hr IVPB 0500,1300, 2100 [facility] Last Admin: 07/15/16 05:53 Dose: 100 mls/hr Lidocaine (Lidoderm) 1 ea TD DAILY [facility] Last Admin: 07/15/16 08:52 Dose: 1 ea - Labs Labs: 07/11/16 07:03 07/11/16 07:03 - Respiratory Exam Respiratory Exam: Clear to Ausculation Bilateral - Cardiovascular Exam Cardiovascular Exam: REGULAR RHYTHM, +S1, +S2 Assessment and Plan - Assessment and Plan (Free Text) Assessment: FALL WITH BACK INJURY DECONDITIONING S/P ATRIAL FIBRILLATION CIRRHOSIS OF THE LIVER Plan: CONTINUE AMIODARONE, ASPIRIN, FUROSEMIDE AND ANTIBIOTICS FOR PROBABLE DISCHARGE TOMORROW OV WITH ME IN ABOUT 2 WEEKS-PT TO CALL FOR APPOINTMENT
--- NOTE | 2016-07-15 13:08 | CP.PCM.PN ---
Subjective - Date & Time of Evaluation Date of Evaluation: 07/15/16 Time of Evaluation: 08:00 - Subjective Subjective: feels ok afeb for d/c home on po rx Objective - Vital Signs/Intake and Output Vital Signs (last 24 hours): Temp Pulse Resp BP Pulse Ox 98.2 F 84 20 118/49 L 96 07/15/16 09:00 07/15/16 09:00 07/15/16 09:00 07/15/16 09:00 07/15/16 09:00 - Medications Medications: Current Medications Amiodarone HCl (Cordarone) 200 mg PO DAILY [facility] Last Admin: 07/15/16 08:51 Dose: 200 mg Aspirin (Ecotrin) 81 mg PO DAILY [facility] Last Admin: 07/15/16 08:51 Dose: 81 mg Furosemide (Lasix) 40 mg PO DAILY [facility] Last Admin: 07/15/16 08:52 Dose: 40 mg Cefazolin Sodium 2 gm/ Sodium (Chloride) 100 mls @ 100 mls/hr IVPB 0500,1300, 2100 [facility] Last Admin: 07/15/16 05:53 Dose: 100 mls/hr Lidocaine (Lidoderm) 1 ea TD DAILY [facility] Last Admin: 07/15/16 08:52 Dose: 1 ea Tramadol HCl (Ultram) 50 mg PO BID PRN PRN Reason: Pain, severe (8-10) - Labs Labs: 07/11/16 07:03 07/11/16 07:03 - Constitutional Appears: Non-toxic, Cachectic, Chronically Ill - Head Exam Head Exam: NORMOCEPHALIC. absent: ATRAUMATIC, NORMAL INSPECTION - Eye Exam Eye Exam: PERRL - ENT Exam ENT Exam: Mucous Membranes Dry, Mucous Membranes Moist, Normal Exam, Normal External Ear Exam, Normal Oropharynx, TM's Normal Bilaterally - Neck Exam Neck Exam: Full ROM, Lymphadenopathy, Meningismus, Normal Inspection, Tenderness , Thyromegaly - Cardiovascular Exam Cardiovascular Exam: REGULAR RHYTHM, +S1, +S2 - GI/Abdominal Exam GI & Abdominal Exam: Soft, Normal Bowel Sounds - Rectal Exam Rectal Exam: Deferred - Exam Exam: NORMAL INSPECTION - Extremities Exam Extremities Exam: Pedal Edema. absent: Tenderness - Back Exam Back Exam: absent: CVA tenderness (L), CVA tenderness (R) Assessment and Plan (1) Cirrhosis of liver with ascites Status: Acute (2) Bacteremia due to Gram-positive bacteria Status: Acute - Assessment and Plan (Free Text) Assessment: cont po rx as out pt
--- NOTE | 2016-07-15 19:26 | CP.PCM.PN ---
Subjective - Date & Time of Evaluation Date of Evaluation: 07/15/16 Time of Evaluation: 22:22 - Subjective Subjective: Continues to do well ID note appreciated Objective - Vital Signs/Intake and Output Vital Signs (last 24 hours): Temp Pulse Resp BP Pulse Ox 98.1 F 84 20 120/49 L 95 07/15/16 15:43 07/15/16 15:43 07/15/16 15:43 07/15/16 15:43 07/15/16 15:43 - Medications Medications: Current Medications Amiodarone HCl (Cordarone) 200 mg PO DAILY [facility] Last Admin: 07/15/16 08:51 Dose: 200 mg Aspirin (Ecotrin) 81 mg PO DAILY [facility] Last Admin: 07/15/16 08:51 Dose: 81 mg Furosemide (Lasix) 40 mg PO DAILY [facility] Last Admin: 07/15/16 08:52 Dose: 40 mg Cefazolin Sodium 2 gm/ Sodium (Chloride) 100 mls @ 100 mls/hr IVPB 0500,1300, 2100 [facility] Last Admin: 07/15/16 14:03 Dose: 100 mls/hr Lidocaine (Lidoderm) 1 ea TD DAILY [facility] Last Admin: 07/15/16 08:52 Dose: 1 ea Tramadol HCl (Ultram) 50 mg PO BID PRN PRN Reason: Pain, severe (8-10) Last Admin: 07/15/16 13:40 Dose: 50 mg - Labs Labs: 07/11/16 07:03 07/11/16 07:03 - Respiratory Exam Respiratory Exam: Wheezes - Cardiovascular Exam Cardiovascular Exam: REGULAR RHYTHM - GI/Abdominal Exam GI & Abdominal Exam: Normal Bowel Sounds Assessment and Plan - Assessment and Plan (Free Text) Assessment: Dceonditioning TCU Sepsis/ bacteremia etiol? SBP?? Endocarditis?? Blood C&S Staph coag neg PNA FISH (2nd time) MEL negative IV Cefazolin ID Cardiology Cirrhosis Hepatosplenomegaly Portal HTN ascites etiol?? Pancytopenia Low prot/alb s/p paracentesis last admission lasix GI Liver transplant? Hyperkalemia 2 to aldactone? d/c aldactone Kaexylate Nephrology Low back pain etiol? improved Physiatry appreciated R hand weakness as per Neuro A-fib/ rate controlled Amiodorone INR 2.0 Cardiology
[2016-07-15 20:42] VITALS: TEMP 97.7
[2016-07-16] MEDS: ceFAZolin 2 GM in Sodium Chloride 0.9% 100 ML IVPB SCH ×2 (05:17→12:00)
[2016-07-16 08:36] VITALS: BP 107/56; O2SAT 100
[2016-07-16] MEDS: Lidocaine 5% Patch TD SCH (09:02)
[2016-07-16 09:03] VITALS: PULSE 73
--- NOTE | 2016-07-16 19:47 | CP.PCM.PN ---
Subjective - Date & Time of Evaluation Date of Evaluation: 07/16/16 Time of Evaluation: 22:22 - Subjective Subjective: Above noted Objective - Vital Signs/Intake and Output Vital Signs (last 24 hours): Temp Pulse Resp BP Pulse Ox 97.7 F 73 20 107/56 L 100 07/16/16 08:35 07/16/16 09:02 07/16/16 08:35 07/16/16 09:02 07/16/16 08:35 - Labs Labs: 07/11/16 07:03 07/11/16 07:03 - Respiratory Exam Respiratory Exam: NORMAL BREATHING PATTERN - Cardiovascular Exam Cardiovascular Exam: REGULAR RHYTHM - GI/Abdominal Exam GI & Abdominal Exam: Normal Bowel Sounds Assessment and Plan - Assessment and Plan (Free Text) Assessment: Dceonditioning TCU Sepsis/ bacteremia etiol? SBP?? Endocarditis?? Blood C&S Staph coag neg PNA FISH (2nd time) MEL negative IV Cefazolin ID Cardiology Cirrhosis Hepatosplenomegaly Portal HTN ascites etiol?? Pancytopenia Low prot/alb s/p paracentesis last admission lasix GI Liver transplant? Hyperkalemia 2 to aldactone? d/c aldactone Kaexylate Nephrology Low back pain etiol? improved Physiatry appreciated R hand weakness as per Neuro A-fib/ rate controlled Amiodorone INR 2.0 Cardiology
== END 2016-07-16 14:00 | disposition home or self-care (01) | DRG 552 ==
LOC: H.TCU 22:38 → UNDOADMIN 22:38 → H.TCU 22:40 → UNDODISIN 07-16 14:00
PROVIDERS: ADMIT Family Medicine Geriatric Medicine; ATTEND Family Medicine Geriatric Medicine
PROC: F07L6ZZ Therapeutic Exercise Treatment of Musculoskeletal System - Lower Back / Lower Extremity (ICD-10-PCS; principal; 2016-07-09)
PROC: F08Z4FZ Home Management Treatment using Assistive, Adaptive, Supportive or Protective Equipment (ICD-10-PCS; 2016-07-09)
DX: M54.5 Low back pain (principal); D61.818 Other pancytopenia; R18.8 Other ascites; R78.81 Bacteremia; I48.91 Unspecified atrial fibrillation; B96.89 Other specified bacterial agents as the cause of diseases classified elsewhere; K74.60 Unspecified cirrhosis of liver; M25.541 Pain in joints of right hand

== ENCOUNTER 2016-08-08 17:51 | Emergency (ER) | payer BC, MEDICARE ==
[2016-08-08 17:51] VITALS: PULSE 82; BMI 32.1
[2016-08-08 18:09] VITALS: O2SAT 97
--- NOTE | 2016-08-08 19:27 | ED PDOC ---
Lower Extremity Pain/Injury Time Seen by Provider: 08/08/16 18:37 Chief Complaint (Nursing): Lower Extremity Problem/Injury Chief Complaint (Provider): Lower Extremity Problem/Injury History Per: Patient History/Exam Limitations: no limitations Onset/Duration Of Symptoms: Days (x1 week) Current Symptoms Are (Timing): Still Present Additional Complaint(s): 71 y/o male presents to the emergency department with a complaint of ongoing worsening, since onset, bilateral (left is worse than right) leg swelling x1 week. Associated with redness. Reports wound on the left leg is expressing yellow discharge. States he is compliance with his diuretics for hypertension. Patient was seen by his PMD today and was advised to visit the ER because he had never experienced an episode like this. Denies fever, shortness of breath, or injury. PMD: Dr. Vicente Newton MD Past Medical History Reviewed: Historical Data, Nursing Documentation, Vital Signs Vital Signs: Last Vital Signs Temp 97.6 F 08/08/16 18:06 Pulse 97 H 08/08/16 18:06 Resp 18 08/08/16 18:06 BP 126/50 L 08/08/16 18:06 Pulse Ox 97 08/08/16 18:06 - Medical History PMH: Arthritis, Atrial Fibrillation, Back Problems (Chronic), HTN Denies: Chronic Kidney Disease - Surgical History Surgical History: No Surg Hx - Family History Family History: States: Hypertension - Social History Current smoker - smoking cessation education provided: No Alcohol: None Drugs: Denies - Home Medications Home Medications: Ambulatory Orders Medication Instructions Recorded Spironolactone [Aldactone] 50 mg PO DAILY #30 tab 06/08/16 Amiodarone [Cordarone] 200 mg PO DAILY tab 07/09/16 Aspirin [Ecotrin] 81 mg PO DAILY tabec 07/09/16 Furosemide [Lasix] 40 mg PO DAILY tab 07/09/16 Lidocaine 5% [Lidoderm] 1 ea TD DAILY patch 07/09/16 traMADol [Ultram] 50 mg PO BID PRN #0 tab 07/09/16 Cephalexin [cephalexin] 500 mg PO TID #21 cap 07/16/16 Clindamycin [Cleocin] 450 mg PO TID 7 Days 08/08/16 - Allergies Allergies/Adverse Reactions: Allergies Allergy/AdvReac Type Severity Reaction Status Date / Time No Known Allergies Allergy Verified 08/08/16 18:05 Review of Systems ROS Statement: Except As Marked, All Systems Reviewed And Found Negative Constitutional: Negative for: Fever, Other (Injuries) Respiratory: Negative for: Shortness of Breath Musculoskeletal: Positive for: Other (Leg swelling bilaterally) Physical Exam - Reviewed Nursing Documentation Reviewed: Yes Vital Signs Reviewed: Yes - Physical Exam Appears: Positive for: Well (Appears older than given age), Non-toxic, No Acute Distress Cardiovascular/Chest: Positive for: Regular Rate, Rhythm. Negative for: Murmur Respiratory: Positive for: Normal Breath Sounds. Negative for: Accessory Muscle Use, Respiratory Distress Gastrointestinal/Abdominal: Positive for: Soft, Other (Protuberant obese abdomen ). Negative for: Tenderness Extremity: Positive for: Pedal Edema (3+ pitting edema extending to the lower thigh bilaterally with violaceous erythema), Other (Limited range of motion to lower legs bilaterally (He states is due to chronic back pain). Anterior feet, ankle, and lower legs induration and welded markedly bilaterally. Left leg is worse than right leg with yellow dry exudate to the left anterior lower leg. Wound located on the left leg is expressing yellow discharge). Negative for: Normal ROM, Tenderness Neurologic/Psych: Positive for: Alert, Oriented - Laboratory Results Result Diagrams: 08/08/16 19:30 08/08/16 19:30 - ECG O2 Sat by Pulse Oximetry: 97 (RA) Pulse Ox Interpretation: Normal Medical Decision Making Medical Decision Making: Time: 18:37 Initial impression: Erysipelas and leg edema Initial plan: --VBG Shock Panel --B-Type Natriuretic Peptide --COMP Metabolic Panel --Magnesium Stat --Phosphorous Stat --Thyroid Stimulating Hormone --Troponin I Stat --ED Urine Dipstick (POC) --CBC w/ differential --D Dimer (COAG) --Partial Thromboplastin Time (COAG) --Prothrombin Time (COAG) --Blood Culture Stat --Urine Culture Stat --Would Culture and Gram Stain --IV Insertion --AccuCheck --Urinalysis Stat --Duplex Lower Extrm Vein BILAT (US) --Revalaution Labs c/w liver cirrhosis and renal insufficiency. No leukocytosis. Normal lactic acid. Accession No. : [id number] Patient Name / ID : MONIKA FRANKEL / [id number] Exam Date : 08/08/2016 20:15:48 ( Approved ) Study Comment : Sex / Age : M / 71Y Creator : Meliton Rios MD Dictator : Inspector Welded Parts : Missile Pad Mechanic : Meliton Rios MD Approver2 : Report Date : 08/08/2016 21:14:00 My Comment : [facility] Division of Radiology [address] [place] [address] Tel. no. Patient Name: MARLYS FRANK Pt. Address: [address] [place] [address]. Rec #: [id number] [place] [address]: Kodi HARRISON, Aurora Leyva Pt Order Location: [facility] : 1945 Male Age: 71 Order #: [id number] Reason for exam: leg swelling r/o dvt Ultrasound DUPLEX LOWER EXTRM VEIN BILAT Exam Date: 08/08/16 This imaging exam was performed at [facility] EXAM: US Duplex Bilateral Lower Extremity Veins CLINICAL HISTORY: 71 years old, male; Signs and symptoms; Swelling of limb; Lower extremity, bilateral; Additional info: Leg swelling R/O dvt TECHNIQUE: Real-time ultrasound scan of the veins of the bilateral lower extremities with color Doppler flow, spectral waveform analysis and compression. COMPARISON: No relevant prior studies available. FINDINGS: Right deep veins: Normal color and spectral Doppler flow. Normal compressibility. No deep vein thrombosis from common femoral to popliteal vein. Right superficial veins: Unremarkable. Left deep veins: Normal color and spectral Doppler flow. Normal compressibility. No deep vein thrombosis from common femoral to popliteal vein. Left superficial veins: Unremarkable. Soft tissues: No popliteal cyst. IMPRESSION: 1. No evidence of DVT within the lower extremities. 2. Incidental/non-acute findings are described above. Dictated By: Meliton Rios MD Dictated Date/Time: 08/08/162113 Signed By: Meliton Rios MD Date Signed: 2113 Transcribed By: JACINTO Transcribe Date/Time : 08/08/162113 ACYP02/MORALES Montoya. Pt will get additional dose of aldactone and lasix, and initial dose of clindamycin in ER and follow up with him tomorrow. Scribe Attestation: Documented by Shelbie Bain, acting as a scribe for Aurora Mariee MD. Provider Scribe Attestation: All medical record entries made by the Scribe were at my direction and personally dictated by me. I have reviewed the chart and agree that the record accurately reflects my personal performance of the history, physical exam, medical decision making, and the department course for this patient. I have also personally directed, reviewed, and agree with the discharge instructions and disposition. Disposition - Clinical Impression Clinical Impression: Leg edema, Erysipelas of lower extremity Counseled Patient/Family Regarding: Studies Performed, Diagnosis, Need For Followup, Rx Given - Disposition Referrals: Vicente Newton MD [Staff Provider] - 08/09/16 (DR NEWTON EXPECTS YOU IN HIS OFFICE TOMORROW. PLEASE TAKE YOUR RESULTS WITH YOU.) Disposition: Routine/Home Disposition Time: 22:32 Condition: STABLE Prescriptions: Clindamycin [Cleocin] 450 mg PO TID 7 Days Instructions: Cellulitis (ED), Leg Edema (ED)
[2016-08-08 20:01] LABS: BASO # 0.1 K/uL (0.0-0.2); BASO % 0.9 % (0.0-2.0); EOS # 0.5 K/uL (0.0-0.7); EOS % 4.7 % (0.0-4.0); HEMATOCRIT 32.2 % (35.0-51.0); LYMPH # 1.3 K/uL (1.0-4.3); MEAN CELL VOLUME 105.7 fl (80.0-94.0); MEAN CORPUSCULAR HEMOGLOBIN 35.3 pg (27.0-31.0); MEAN CORPUSCULAR HGB CONC 33.5 g/dL (33.0-37.0); MEAN PLATELET VOLUME 8.6 fl (7.2-11.7); MONO # 1.1 K/uL (0.0-0.8); MONO % 10.5 % (0.0-10.0); NEUT # 7.3 K/uL (1.8-7.0); NEUT % 70.9 % (50.0-75.0); NRBC % 0.1 % (0.0-0.0); RED CELL DISTRIBUTION WIDTH 17.5 % (11.5-14.5); WHITE BLOOD COUNT 10.4 K/uL (4.8-10.8)
[2016-08-08 20:13] LABS: ALB/GLOB RATIO 0.4 (1.0-2.1); ALKALINE PHOSPHATASE 118 U/L (38-126); ALT/SGPT 21 U/L (21-72); AST/SGOT 60 U/L (17-59); BILIRUBIN,TOTAL 3.8 mg/dl (0.2-1.3); BLOOD UREA NITROGEN 34 mg/dl (9-20); CALCIUM 8.1 mg/dL (8.4-10.2); CARBON DIOXIDE 24 mmol/L (22-30); CHLORIDE 106 mmol/L (98-107); GFR AFRICAN-AMERICAN > 60; GLUCOSE,RANDOM 78 mg/dL (75-110); MAGNESIUM 2.1 MG/DL (1.6-2.3); PHOSPHOROUS 4.2 mg/dl (2.5-4.5); POTASSIUM 4.5 MMOL/L (3.6-5.0); SODIUM 137 mmol/l (132-148); TOTAL PROTEIN 8.6 G/DL (6.3-8.2)
[2016-08-08 20:15] LABS: VENOUS BLOOD GAS BASE EXCESS 1.3 mmol/L (0.0-2.0); VENOUS BLOOD GAS PCO2 40 mmHg (40-60); VENOUS BLOOD PH 7.42 (7.32-7.43)
[2016-08-08 20:25] LABS: RBC URINE 13 /hpf (0-3); URINE BILIRUBIN NEGATIVE (NEGATIVE); URINE BLOOD MODERATE (NEGATIVE); URINE COLOR YELLOW (YELLOW); URINE GLUCOSE (UA) NEG (Normal); URINE KETONE NEGATIVE (NEGATIVE); URINE LEUKOCYTE ESTERASE NEG Leu/uL (Negative); URINE PROTEIN NEGATIVE (NEGATIVE)
--- NOTE | 2016-08-08 21:14 | US ---
EXAM: US Duplex Bilateral Lower Extremity Veins CLINICAL HISTORY: 71 years old, male; Signs and symptoms; Swelling of limb; Lower extremity, bilateral; Additional info: Leg swelling R/O dvt TECHNIQUE: Real-time ultrasound scan of the veins of the bilateral lower extremities with color Doppler flow, spectral waveform analysis and compression. COMPARISON: No relevant prior studies available. FINDINGS: Right deep veins: Normal color and spectral Doppler flow. Normal compressibility. No deep vein thrombosis from common femoral to popliteal vein. Right superficial veins: Unremarkable. Left deep veins: Normal color and spectral Doppler flow. Normal compressibility. No deep vein thrombosis from common femoral to popliteal vein. Left superficial veins: Unremarkable. Soft tissues: No popliteal cyst. IMPRESSION: 1. No evidence of DVT within the lower extremities. 2. Incidental/non-acute findings are described above.
[2016-08-08] MEDS ORDERED: Clindamycin 600 MG in Sodium Chloride 0.9% 100 ML IVPB STA (21:28)
[2016-08-08 23:11] VITALS: BP 132/77; PULSE 79; RESP 17; TEMP 98.1
== END 2016-08-08 23:12 | disposition home or self-care (01) ==
LOC: H.ER 17:51
DX: R60.0 Localized edema (principal); A46 Erysipelas; I10 Essential (primary) hypertension; I48.91 Unspecified atrial fibrillation; K74.60 Unspecified cirrhosis of liver; N28.9 Disorder of kidney and ureter, unspecified; Z79.82 Long term (current) use of aspirin
CPT/HCPCS: 80053; 81003; 82140; 82803; 83735; 83880; 84100; 84443; 84484; 85025; 85378; 85610; 85730; 87040; 87070; 87086; 93970; 96365; 96375; 99283; J1940

== ENCOUNTER 2016-08-19 16:15 | Inpatient (IN) | payer MEDICARE, BC ==
[2016-08-19 16:16] VITALS: PULSE 82; BMI 32.1
--- NOTE | 2016-08-19 17:18 | ED PDOC ---
Lower Extremity Pain/Injury Time Seen by Provider: 08/19/16 16:47 Chief Complaint (Nursing): Lower Extremity Problem/Injury Chief Complaint (Provider): leg swelling History Per: Patient History/Exam Limitations: no limitations Onset/Duration Of Symptoms: Days (1 month) Current Symptoms Are (Timing): Still Present Severity: Severe Additional Complaint(s): 71 y/o male presents to the emergency department with a complaint of ongoing worsening, since onset, bilateral (left is worse than right) leg swelling x1 month. Associated with redness. Reports wound on the left leg is expressing yellow discharge. States he is compliant with his diuretics for hypertension. Seen 10 days ago in this ER and started on antibiotics after workup for sepsis and DVT were negative, and after one dose of IV clindamycin. Patient was seen by his PMD today and was advised to visit the ER because he is not getting better. 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 Denies chest pain, fever, or chills. Past Medical History Reviewed: Historical Data, Nursing Documentation, Vital Signs Vital Signs: Last Vital Signs Temp 97.7 F 08/19/16 16:26 Pulse 86 08/19/16 16:26 Resp 18 08/19/16 16:26 BP 118/51 L 08/19/16 16:26 Pulse Ox 98 08/19/16 16:26 - Medical History PMH: Arthritis, Atrial Fibrillation, Back Problems (Chronic), HTN Denies: Chronic Kidney Disease Other PMH: Liver cirrhosis and ascites - Family History Family History: States: Hypertension - Social History Current smoker - smoking cessation education provided: No Alcohol: None - Home Medications Home Medications: Ambulatory Orders Medication Instructions Recorded Spironolactone [Aldactone] 50 mg PO DAILY #30 tab 06/08/16 Amiodarone [Cordarone] 200 mg PO DAILY tab 07/09/16 Aspirin [Ecotrin] 81 mg PO DAILY tabec 07/09/16 Furosemide [Lasix] 40 mg PO DAILY tab 07/09/16 - Allergies Allergies/Adverse Reactions: Allergies Allergy/AdvReac Type Severity Reaction Status Date / Time No Known Allergies Allergy Verified 08/08/16 18:05 Review of Systems ROS Statement: Except As Marked, All Systems Reviewed And Found Negative (and as per HPI) Constitutional: Positive for: Weakness, Malaise. Negative for: Fever, Chills Cardiovascular: Positive for: Edema. Negative for: Chest Pain, Palpitations Respiratory: Positive for: Shortness of Breath, SOB with Exertion. Negative for : Sputum Gastrointestinal: Positive for: Abdominal Pain (and distension). Negative for: Nausea, Vomiting Genitourinary Male: Negative for: Dysuria, Frequency Skin: Positive for: Rash, Lesions Physical Exam - Reviewed Nursing Documentation Reviewed: Yes - Physical Exam Appears: Positive for: Non-toxic, In Acute Distress Head Exam: Positive for: ATRAUMATIC, NORMOCEPHALIC Skin: Positive for: Warm, Dry, Rash Eye Exam: Positive for: EOMI, PERRL ENT: Positive for: Pharynx Is (clear) Neck: Positive for: Painless ROM, Supple Cardiovascular/Chest: Positive for: Regular Rate, Rhythm, Chest Non Tender. Negative for: Murmur Respiratory: Positive for: Rales, Respiratory Distress Gastrointestinal/Abdominal: Positive for: Soft, Tenderness, Distended, Asicites. Negative for: Mass, Guarding, Rebound - Laboratory Results Result Diagrams: 08/19/16 17:50 08/19/16 17:50 - ECG O2 Sat by Pulse Oximetry: 98 - Progress ED Course And Treament: Accession No. : [id number] Patient Name / ID : MONIKA FRANKEL / [id number] Exam Date : 08/19/2016 17:24:28 ( Approved ) Study Comment : Sex / Age : M / 71Y Creator : Morris Schwartz MD Dictator : Morris Schwartz MD Prevocational/Rehabilitation Counselor : Metal Machinist : Morris Schwartz MD Approver2 : Report Date : 08/19/2016 17:57:34 My Comment : HISTORY: cellulitis admission COMPARISON: 06/29/2016 FINDINGS: LUNGS: No active pulmonary disease. PLEURA: No significant pleural effusion identified, no pneumothorax apparent. CARDIOVASCULAR: No radiographic findings to suggest acute or significant cardiovascular disease. OSSEOUS STRUCTURES: No significant abnormalities. VISUALIZED UPPER ABDOMEN: Normal. OTHER FINDINGS: None. IMPRESSION: No active disease. No significant interval change compared to the prior examination(s). Disposition - Clinical Impression Clinical Impression: Cirrhosis of liver with ascites, Erysipelas of lower extremity, Leg edema - Disposition Disposition Time: 17:00 Condition: GUARDED - Pt Status Changed To: Hospital Disposition Of: Inpatient - Admit Certification Admit to Inpatient:: After my assessment, the patient will require hospitalization for at least two midnights. This is because of the severity of symptoms shown, intensity of services needed, and/or the medical risk in this patient being treated as an outpatient. - POA Present On Arrival: None
[2016-08-19 17:52] LABS: VENOUS BLOOD GAS BASE EXCESS -0.2 mmol/L (0.0-2.0); VENOUS BLOOD GAS PCO2 37 mmHg (40-60); VENOUS BLOOD PH 7.42 (7.32-7.43)
--- NOTE | 2016-08-19 17:59 | RAD ---
HISTORY: cellulitis admission COMPARISON: 06/29/2016 FINDINGS: LUNGS: No active pulmonary disease. PLEURA: No significant pleural effusion identified, no pneumothorax apparent. CARDIOVASCULAR: No radiographic findings to suggest acute or significant cardiovascular disease. OSSEOUS STRUCTURES: No significant abnormalities. VISUALIZED UPPER ABDOMEN: Normal. OTHER FINDINGS: None. IMPRESSION: No active disease. No significant interval change compared to the prior examination(s).
[2016-08-19 18:13] LABS: BASO # 0.1 K/uL (0.0-0.2); EOS # 0.3 K/uL (0.0-0.7); EOS % 3.2 % (0.0-4.0); HEMATOCRIT 30.6 % (35.0-51.0); LYMPH # 1.3 K/uL (1.0-4.3); LYMPH % 13.3 % (20.0-40.0); MEAN CELL VOLUME 105.7 fl (80.0-94.0); MEAN CORPUSCULAR HEMOGLOBIN 35.3 pg (27.0-31.0); MEAN CORPUSCULAR HGB CONC 33.4 g/dL (33.0-37.0); MEAN PLATELET VOLUME 8.7 fl (7.2-11.7); MONO % 10.5 % (0.0-10.0); RED CELL DISTRIBUTION WIDTH 16.5 % (11.5-14.5); WHITE BLOOD COUNT 9.7 K/uL (4.8-10.8)
[2016-08-19 18:23] LABS: ALB/GLOB RATIO 0.4 (1.0-2.1); BILIRUBIN,TOTAL 3.3 mg/dl (0.2-1.3); CALCIUM 7.9 mg/dL (8.4-10.2); MAGNESIUM 2.3 MG/DL (1.6-2.3); PHOSPHOROUS 4.4 mg/dl (2.5-4.5); TOTAL PROTEIN 8.2 G/DL (6.3-8.2)
[2016-08-19 18:24] LABS: POTASSIUM 5.6 MMOL/L (3.6-5.0)
[2016-08-19 18:33] LABS: TROPONIN I 0.068 ng/mL (0.00-0.120)
[2016-08-19 18:52] LABS: THYROID STIMULATING HORMONE 4.38 mIU/ML (0.46-4.68)
[2016-08-19 19:29] LABS: PARTIAL THROMBOPLASTIN TIME 42.2 Seconds (25.6-37.1)
[2016-08-19] MEDS ORDERED: Albumin Human 5% (12.5 gm/250 ml) IV ONE (20:16)
[2016-08-19] MEDS ORDERED: ceFAZolin 1 GM in Sodium Chloride 0.9% 100 ML IVPB ONE (23:55)
[2016-08-20 01:26] LABS: CALCIUM 7.7 mg/dL (8.4-10.2)
[2016-08-20 08:09] LABS: HEMATOCRIT 27.4 % (35.0-51.0); MEAN CELL VOLUME 105.3 fl (80.0-94.0); MEAN CORPUSCULAR HEMOGLOBIN 35.7 pg (27.0-31.0); MEAN CORPUSCULAR HGB CONC 33.9 g/dL (33.0-37.0); RED CELL DISTRIBUTION WIDTH 16.6 % (11.5-14.5); WHITE BLOOD COUNT 8.6 K/uL (4.8-10.8)
[2016-08-20 08:33] LABS: CALCIUM 7.7 mg/dL (8.4-10.2); POTASSIUM 4.9 MMOL/L (3.6-5.0)
[2016-08-20] MEDS: ceFAZolin 1 GM in Sodium Chloride 0.9% 100 ML IVPB SCH ×2 (09:54→17:46)
--- NOTE | 2016-08-20 12:46 | CARD ---
APPROVED REPORT EKG Measurement Heart [id number] <Conclusion> Normal sinus rhythm Left anterior fascicular block Incomplete LBBB Left ventricular hypertrophy with QRS widening Possible Lateral infarct, age undetermined Abnormal ECG
--- NOTE | 2016-08-20 13:06 | CP.PCM.CON ---
History of Present Illness - History of Present Illness History of Present Illness: Podiatry consult note- Dr. Olivo 71 year old male with PMHx of HTN, arthritis, a-fib, cirrhosis, admitted for bilateral lower extremity cellulitis. Patient states that he has chronic issues with his lower extremities, and a history of several episodes of cellulitis. He reports increased redness and swelling to his extremities for about the past month. He reports some drainage from both ankles. Patient denies n/v/f/c/sob at this time. He does report pain to the extremities. Past Patient History - Past Medical History & Family History Past Medical History?: Yes - Past Social History Smoking Status: Former Smoker - CARDIAC Hx Atrial Fibrillation: Yes Hx Hypertension: Yes Hx Peripheral Edema: Yes - PULMONARY Hx Respiratory Disorders: No - NEUROLOGICAL Hx Neurological Disorder: No - HEENT Hx HEENT Problems: No - RENAL Hx Chronic Kidney Disease: No - ENDOCRINE/METABOLIC Hx Endocrine Disorders: No - HEMATOLOGICAL/ONCOLOGICAL Hx Blood Disorders: No Hx AIDS: No Hx Blood Transfusions: No Hx Human Immunodeficiency Virus (HIV): No - INTEGUMENTARY Hx Dermatological Problems: No - MUSCULOSKELETAL/RHEUMATOLOGICAL Hx Arthritis: Yes Hx Falls: Yes - GASTROINTESTINAL Other/Comment: Liver Cirrhosis - GENITOURINARY/GYNECOLOGICAL Hx Genitourinary Disorders: No - PSYCHIATRIC Hx Emotional Abuse: No Hx Physical Abuse: No Hx Substance Use: No - SURGICAL HISTORY Hx Surgeries: Yes Other/Comment: 2000 arthroscopic knee surgery - ANESTHESIA Hx Anesthesia: Yes Hx Anesthesia Reactions: No Hx Malignant Hyperthermia: No Meds Allergies/Adverse Reactions: Allergies Allergy/AdvReac Type Severity Reaction Status Date / Time No Known Allergies Allergy Verified 08/08/16 18:05 - Medications Medications: Current Medications Amiodarone HCl (Cordarone) 200 mg PO DAILY REPLACED BY [facility] Last Admin: 08/20/16 09:53 Dose: 200 mg Furosemide (Lasix) 20 mg IVP Q12 REPLACED BY [facility] Last Admin: 08/20/16 09:54 Dose: 20 mg Cefazolin Sodium 1 gm/ Sodium (Chloride) 100 mls @ 100 mls/hr IVPB Q8 REPLACED BY [facility] Last Admin: 08/20/16 09:54 Dose: 100 mls/hr Physical Exam - Constitutional Appears: Well, Non-toxic, No Acute Distress - Neurological Exam Neurological exam: Oriented x3 - Psychiatric Exam Psychiatric exam: Normal Affect, Normal Mood - Additional Findings Additional findings: DERMATOLOGIC: Bilateral diffuse erythema to the extremities extending to just below the knees. Redness is more severe medially. There is mild drainage to bilateral lateral ankles. There are two small serous filled blisters on the dorsal aspect of the left ankle. There is scaling and xerosis bilaterally. No deep wounds, no purulent drainage. VASCULAR: DP/PT pulses 2/4, DISTRIBUTING CLERK<3 seconds. There is diffuse edema of bilateral lower extremities. Skin temperature mildly elevated. NEUROLOGIC: Gross sensation intact, motor function intact ORTHOPEDIC: Pain on palpation to bilateral lower extremities Results - Vital Signs Recent Vital Signs: Last Vital Signs Temp 97.7 F 08/20/16 12:52 Pulse 75 08/20/16 12:52 Resp 18 08/20/16 12:52 BP 109/49 L 08/20/16 12:52 Pulse Ox 97 08/20/16 12:52 - Labs Result Diagrams: 08/20/16 06:30 08/20/16 06:30 Labs: Laboratory Results - last 24 hr 08/19/16 08/19/16 08/19/16 19:25 20:56 22:59 WBC RBC Hgb Hct MCV MCH MCHC RDW Plt Count Sodium 136 Potassium 5.6 H Chloride 106 Carbon Dioxide 23 Anion Gap 13 BUN 39 H Creatinine 1.6 H Est GFR ( Amer) 52 Est GFR (Non-Af Amer) 43 Random Glucose 109 Lactic Acid 2.7 H Calcium 7.9 L Phosphorus 4.4 Magnesium 2.3 Total Bilirubin 3.3 H AST 67 H ALT 35 Alkaline Phosphatase 123 Ammonia Troponin I 0.0680 NT-Pro-B Natriuret Pep 1470 H Total Protein 8.2 Albumin 2.3 L Globulin 5.8 H Albumin/Globulin Ratio 0.4 L TSH 3rd Generation 4.38 Blood Type Confirm A POSITIVE 08/20/16 08/20/16 08/20/16 00:20 06:30 06:30 WBC 8.6 RBC 2.61 L Hgb 9.3 L Hct 27.4 L MCV 105.3 H MCH 35.7 H MCHC 33.9 RDW 16.6 H Plt Count 95 L Sodium 135 137 Potassium 5.0 4.9 Chloride 107 108 H Carbon Dioxide 23 24 Anion Gap 10 10 BUN 40 H 39 H Creatinine 1.5 1.5 Est GFR ( Amer) 56 56 Est GFR (Non-Af Amer) 46 46 Random Glucose 95 73 L Lactic Acid Calcium 7.7 L 7.7 L Phosphorus Magnesium Total Bilirubin AST ALT Alkaline Phosphatase Ammonia Troponin I NT-Pro-B Natriuret Pep Total Protein Albumin Globulin Albumin/Globulin Ratio TSH 3rd Generation Blood Type Confirm 08/20/16 06:30 WBC RBC Hgb Hct MCV MCH MCHC RDW Plt Count Sodium Potassium Chloride Carbon Dioxide Anion Gap BUN Creatinine Est GFR ( Amer) Est GFR (Non-Af Amer) Random Glucose Lactic Acid Calcium Phosphorus Magnesium Total Bilirubin AST ALT Alkaline Phosphatase Ammonia 46 D Troponin I NT-Pro-B Natriuret Pep Total Protein Albumin Globulin Albumin/Globulin Ratio TSH 3rd Generation Blood Type Confirm Assessment & Plan - Assessment and Plan (Free Text) Assessment: 71 year old male with bilateral lower extremity cellulitis and superficial ulcerations Plan: Patient seen and evaluated, d/w attending Dr. Olivo Continue IV abx per ID Order placed for clotrimazole and hydrocortisone creams Left ankle blisters drained using 18 gauge needle Legs dressed with silvadene, kerlix, NABIL. Podiatry will continue to follow
--- NOTE | 2016-08-20 14:34 | CP.PCM.CON ---
History of Present Illness - History of Present Illness History of Present Illness: THE PATIENT IS A 71 YEAR OLD MALE WITH A HISTORY OF ATRIAL FIBRILLATION NOW IN SINUS RHYTHM ON AMIODARONE, HYPERTENSION, AND CIRRHOSIS OF THE LIVER. HE WAS RECENTLY IN [facility] AND HAD BACTEREMIA AND WAS TREATED WITH IV ANTIBIOTICS INCLUDING IN TCU. HE HAD A MEL THAT DID NOT SHOW ANY VEGETATIONS BUT SIMPLY CALCIFIC AORTIC SCLEROSIS WITHOUT STENOSIS. HE HAS BEEN HOME FOR ABOUT A MONTH NOW AND ONCE CAME TO THE ER FOR LEG SWELLING AND AN INFECTION AND WAS GIVEN IV ANTIBIOTICS IN THE ER AND DISCHARGED TO HOME ON ORAL ANTIBIOTICS. HE IMPROVED SOMEWHAT BUT FOR ABOUT 5 DAYS NOW HE HAD INCREASED LEG EDEMA AND REDNESS AND SAW DR NEWTON IN THE OFFICE WHO ADVISED THAT HE GO TO THE ER AND HE WAS ADMITTED FOR CELLULITIS AND STARTED ON IV ANCEF. HE DENIES FEVERS OR CHILLS. Past Patient History - Past Medical History & Family History Past Medical History?: Yes - Past Social History Smoking Status: Former Smoker - CARDIAC Hx Atrial Fibrillation: Yes Hx Hypertension: Yes Hx Peripheral Edema: Yes - PULMONARY Hx Respiratory Disorders: No - NEUROLOGICAL Hx Neurological Disorder: No - HEENT Hx HEENT Problems: No - RENAL Hx Chronic Kidney Disease: No - ENDOCRINE/METABOLIC Hx Endocrine Disorders: No - HEMATOLOGICAL/ONCOLOGICAL Hx Blood Disorders: No Hx AIDS: No Hx Blood Transfusions: No Hx Human Immunodeficiency Virus (HIV): No - INTEGUMENTARY Hx Dermatological Problems: No - MUSCULOSKELETAL/RHEUMATOLOGICAL Hx Arthritis: Yes Hx Falls: Yes - GASTROINTESTINAL Other/Comment: Liver Cirrhosis - GENITOURINARY/GYNECOLOGICAL Hx Genitourinary Disorders: No - PSYCHIATRIC Hx Emotional Abuse: No Hx Physical Abuse: No Hx Substance Use: No - SURGICAL HISTORY Hx Surgeries: Yes Other/Comment: 2000 arthroscopic knee surgery - ANESTHESIA Hx Anesthesia: Yes Hx Anesthesia Reactions: No Hx Malignant Hyperthermia: No Meds Allergies/Adverse Reactions: Allergies Allergy/AdvReac Type Severity Reaction Status Date / Time No Known Allergies Allergy Verified 08/08/16 18:05 - Medications Medications: Current Medications Amiodarone HCl (Cordarone) 200 mg PO DAILY [facility] Last Admin: 08/20/16 09:53 Dose: 200 mg Clotrimazole (Lotrimin 1% Cream) 1 applic TOP BID [facility] Furosemide (Lasix) 20 mg IVP Q12 [facility] Last Admin: 08/20/16 09:54 Dose: 20 mg Hydrocortisone (Cortizone 1% Cream) 1 applic TOP BID [facility] Cefazolin Sodium 1 gm/ Sodium (Chloride) 100 mls @ 100 mls/hr IVPB Q8 [facility] Last Admin: 08/20/16 09:54 Dose: 100 mls/hr Physical Exam - Respiratory Exam Respiratory Exam: Clear to Auscultation Bilateral - Cardiovascular Exam Cardiovascular Exam: REGULAR RHYTHM, +S1, +S2 - Extremities Exam Extremities exam: Positive for: pedal edema Additional comments: REDNESS AND WARMTH ON BOTH LE BELOW THE KNEE - Additional Findings 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4 Magnesium 2.3 Total Bilirubin 3.3 H AST 67 H ALT 35 Alkaline Phosphatase 123 Ammonia Troponin I 0.0680 NT-Pro-B Natriuret Pep 1470 H Total Protein 8.2 Albumin 2.3 L Globulin 5.8 H Albumin/Globulin Ratio 0.4 L TSH 3rd Generation 4.38 Blood Type Confirm A POSITIVE 08/20/16 08/20/16 08/20/16 00:20 06:30 06:30 WBC 8.6 RBC 2.61 L Hgb 9.3 L Hct 27.4 L MCV 105.3 H MCH 35.7 H MCHC 33.9 RDW 16.6 H Plt Count 95 L Sodium 135 137 Potassium 5.0 4.9 Chloride 107 108 H Carbon Dioxide 23 24 Anion Gap 10 10 BUN 40 H 39 H Creatinine 1.5 1.5 Est GFR ( Amer) 56 56 Est GFR (Non-Af Amer) 46 46 Random Glucose 95 73 L Lactic Acid Calcium 7.7 L 7.7 L Phosphorus Magnesium Total Bilirubin AST ALT Alkaline Phosphatase Ammonia Troponin I NT-Pro-B Natriuret Pep Total Protein Albumin Globulin Albumin/Globulin Ratio TSH 3rd Generation Blood Type Confirm 08/20/16 06:30 WBC RBC Hgb Hct MCV MCH MCHC RDW Plt Count Sodium Potassium Chloride Carbon Dioxide Anion Gap BUN Creatinine Est GFR ( Amer) Est GFR (Non-Af Amer) Random Glucose Lactic Acid Calcium Phosphorus Magnesium Total Bilirubin AST ALT Alkaline Phosphatase Ammonia 46 D Troponin I NT-Pro-B Natriuret Pep Total Protein Albumin Globulin Albumin/Globulin Ratio TSH 3rd Generation Blood Type Confirm Assessment & Plan - Assessment and Plan (Free Text) Assessment: BILAT LE CELLULITIS HISTORY OF ATRIAL FIBRILLATION-NOW IN NSR HYPERTENSION HISTORY CIRRHOSIS OF THE LIVER Plan: THE PATIENT WAS STARTED ON IV ANCEF, AMIODARONE AND IV LASIX PODIATRY ADDED LOTRIMIN AND CORTIZONE CREAM ID TO SEE LOVENOX NOT GIVEN PATIENT IS AUTOANTICOAGULATED AND ASPIRIN HELD DUE TO LOW PLATELET COUNT
--- NOTE | 2016-08-20 20:19 | CP.PCM.HP ---
History of Present Illness - History of Present Illness History of Present Illness: 71 yo with cirrhosis ascites admitted for progressive worsening of lower extremity edema with possible cellulitis Present on Admission - Present on Admission Any Indicators Present on Admission: No Past Patient History - Past Medical History & Family History Past Medical History?: Yes - Past Social History Smoking Status: Former Smoker - CARDIAC Hx Atrial Fibrillation: Yes Hx Hypertension: Yes Hx Peripheral Edema: Yes - PULMONARY Hx Respiratory Disorders: No - NEUROLOGICAL Hx Neurological Disorder: No - HEENT Hx HEENT Problems: No - RENAL Hx Chronic Kidney Disease: No - ENDOCRINE/METABOLIC Hx Endocrine Disorders: No - HEMATOLOGICAL/ONCOLOGICAL Hx Blood Disorders: No Hx AIDS: No Hx Blood Transfusions: No Hx Human Immunodeficiency Virus (HIV): No - INTEGUMENTARY Hx Dermatological Problems: No - MUSCULOSKELETAL/RHEUMATOLOGICAL Hx Arthritis: Yes Hx Falls: Yes - GASTROINTESTINAL Other/Comment: Liver Cirrhosis - GENITOURINARY/GYNECOLOGICAL Hx Genitourinary Disorders: No - PSYCHIATRIC Hx Emotional Abuse: No Hx Physical Abuse: No Hx Substance Use: No - SURGICAL HISTORY Hx Surgeries: Yes Other/Comment: 2000 arthroscopic knee surgery - ANESTHESIA Hx Anesthesia: Yes Hx Anesthesia Reactions: No Hx Malignant Hyperthermia: No Meds Allergies/Adverse Reactions: Allergies Allergy/AdvReac Type Severity Reaction Status Date / Time No Known Allergies Allergy Verified 08/08/16 18:05 Physical Exam - Respiratory Exam Respiratory Exam: NORMAL BREATHING PATTERN - Cardiovascular Exam Cardiovascular Exam: REGULAR RHYTHM - GI/Abdominal Exam GI & Abdominal Exam: Normal Bowel Sounds Results - Vital Signs Recent Vital Signs: Last Vital Signs Temp 98 F 08/20/16 20:03 Pulse 76 08/20/16 20:03 Resp 20 08/20/16 20:03 BP 113/58 L 08/20/16 20:03 Pulse Ox 97 08/20/16 20:03 - Labs Result Diagrams: 08/20/16 06:30 08/20/16 06:30 Labs: Laboratory Results - last 24 hr 08/19/16 08/19/16 08/20/16 20:56 22:59 00:20 WBC RBC Hgb Hct MCV MCH MCHC RDW Plt Count Sodium 135 Potassium 5.0 Chloride 107 Carbon Dioxide 23 Anion Gap 10 BUN 40 H Creatinine 1.5 Est GFR ( Amer) 56 Est GFR (Non-Af Amer) 46 Random Glucose 95 Lactic Acid 2.7 H Calcium 7.7 L Ammonia Blood Type Confirm A POSITIVE 08/20/16 08/20/16 08/20/16 06:30 06:30 06:30 WBC 8.6 RBC 2.61 L Hgb 9.3 L Hct 27.4 L MCV 105.3 H MCH 35.7 H MCHC 33.9 RDW 16.6 H Plt Count 95 L Sodium 137 Potassium 4.9 Chloride 108 H Carbon Dioxide 24 Anion Gap 10 BUN 39 H Creatinine 1.5 Est GFR ( Amer) 56 Est GFR (Non-Af Amer) 46 Random Glucose 73 L Lactic Acid Calcium 7.7 L Ammonia 46 D Blood Type Confirm Assessment & Plan - Assessment and Plan (Free Text) Assessment: Lower extremity edema with cellulitis Cefazolin ID Cirrhosis Hepatosplenomegaly Portal HTN ascites etiol?? Pancytopenia Low prot/alb s/p paracentesis last admission lasix ?? Aldactone GI Liver transplant? Low back pain etiol? improved Physiatry consult A-fib/ rate controlled Amiodorone INR 2.0 Cardiology - Date & Time Date: 08/20/16 Time: 22:22
--- NOTE | 2016-08-20 21:38 | CP.PCM.PN ---
Subjective - Date & Time of Evaluation Date of Evaluation: 08/20/16 Time of Evaluation: 21:35 - Subjective Subjective: Pt. seen at bedside. Pt. is comfortable not in distress. Pt. reports had chest tightness but is gone now. Pt. reports chest tightness started after he tried to push himself up the bed. Chest pain lasted for 5 minutes, localized to the left sternal area, not radiating, reproducible with palpation, and currently rated 1 out of 10. Stat EKG obtained showed no change from previous EKG. Pt. vitals reviewed and also withing normal limits. Pt. now reports feels much better and pain has completely resolved. Objective - Vital Signs/Intake and Output Vital Signs (last 24 hours): Temp Pulse Resp BP Pulse Ox 98 F 76 20 113/58 L 97 08/20/16 20:03 08/20/16 20:03 08/20/16 20:03 08/20/16 20:03 08/20/16 20:03 Intake and Output: 08/20/16 08/21/16 18:59 06:59 Intake Total 250 Balance 250 - Medications Medications: Current Medications Acetaminophen (Tylenol 325mg Tab) 650 mg PO Q6 PRN PRN Reason: Pain, moderate (4-7) Amiodarone HCl (Cordarone) 200 mg PO DAILY [facility] Last Admin: 08/20/16 09:53 Dose: 200 mg Clotrimazole (Lotrimin 1% Cream) 1 applic TOP BID [facility] Last Admin: 08/20/16 19:00 Dose: 1 applic Furosemide (Lasix) 20 mg IVP Q12 [facility] Last Admin: 08/20/16 09:54 Dose: 20 mg Hydrocortisone (Cortizone 1% Cream) 1 applic TOP BID [facility] Last Admin: 08/20/16 18:59 Dose: 1 applic Cefazolin Sodium 1 gm/ Sodium (Chloride) 100 mls @ 100 mls/hr IVPB Q8 [facility] Last Admin: 08/20/16 17:46 Dose: 100 mls/hr - Labs Labs: 08/20/16 06:30 08/20/16 06:30 PT 23.3 Seconds (9.8-13.1) H 08/19/16 17:50 INR 2.0 (0.9-1.2) H 08/19/16 17:50 APTT 42.2 Seconds (25.6-37.1) H 08/19/16 17:50
--- NOTE | 2016-08-21 00:01 | CP.PCM.CON ---
History of Present Illness - History of Present Illness History of Present Illness: 71 yo male with h/o liver cirrhosis admitted with increasing edema of legs and cellulitis. Has been hospitalized in the past for tense ascites. Review of Systems - Constitutional Constitutional: absent: Anorexia - EENT Eyes: absent: Blurred Vision Ears: absent: Decreased Hearing Nose/Mouth/Throat: absent: Epistaxis - Cardiovascular Cardiovascular: absent: Chest Pain - Respiratory Respiratory: absent: Cough - Gastrointestinal Gastrointestinal: absent: Abdominal Pain - Genitourinary Genitourinary: absent: Change in Urinary Stream Past Patient History - Past Medical History & Family History Past Medical History?: Yes - Past Social History Smoking Status: Former Smoker - CARDIAC Hx Atrial Fibrillation: Yes Hx Hypertension: Yes Hx Peripheral Edema: Yes - PULMONARY Hx Respiratory Disorders: No - NEUROLOGICAL Hx Neurological Disorder: No - HEENT Hx HEENT Problems: No - RENAL Hx Chronic Kidney Disease: No - ENDOCRINE/METABOLIC Hx Endocrine Disorders: No - HEMATOLOGICAL/ONCOLOGICAL Hx Blood Disorders: No Hx AIDS: No Hx Blood Transfusions: No Hx Human Immunodeficiency Virus (HIV): No - INTEGUMENTARY Hx Dermatological Problems: No - MUSCULOSKELETAL/RHEUMATOLOGICAL Hx Arthritis: Yes Hx Falls: Yes - GASTROINTESTINAL Other/Comment: Liver Cirrhosis - GENITOURINARY/GYNECOLOGICAL Hx Genitourinary Disorders: No - PSYCHIATRIC Hx Emotional Abuse: No Hx Physical Abuse: No Hx Substance Use: No - SURGICAL HISTORY Hx Surgeries: Yes Other/Comment: 2000 arthroscopic knee surgery - ANESTHESIA Hx Anesthesia: Yes Hx Anesthesia Reactions: No Hx Malignant Hyperthermia: No Meds Allergies/Adverse Reactions: Allergies Allergy/AdvReac Type Severity Reaction Status Date / Time No Known Allergies Allergy Verified 08/08/16 18:05 - Medications Medications: Current Medications Acetaminophen (Tylenol 325mg Tab) 650 mg PO Q6 PRN PRN Reason: Pain, moderate (4-7) Last Admin: 08/20/16 21:38 Dose: 650 mg Amiodarone HCl (Cordarone) 200 mg PO DAILY [facility] Last Admin: 08/20/16 09:53 Dose: 200 mg Clotrimazole (Lotrimin 1% Cream) 1 applic TOP BID [facility] Last Admin: 08/20/16 19:00 Dose: 1 applic Furosemide (Lasix) 20 mg IVP Q12 [facility] Last Admin: 08/20/16 21:45 Dose: 20 mg Hydrocortisone (Cortizone 1% Cream) 1 applic TOP BID [facility] Last Admin: 08/20/16 18:59 Dose: 1 applic Cefazolin Sodium 1 gm/ Sodium (Chloride) 100 mls @ 100 mls/hr IVPB Q8 [facility] Last Admin: 08/20/16 17:46 Dose: 100 mls/hr Physical Exam - Head Exam Head Exam: ATRAUMATIC - Eye Exam Eye Exam: Normal appearance Pupil Exam: NORMAL ACCOMODATION - ENT Exam ENT Exam: Mucous Membranes Moist - Neck Exam Neck exam: Positive for: Normal Inspection - Respiratory Exam Respiratory Exam: Clear to Auscultation Bilateral - Cardiovascular Exam Cardiovascular Exam: REGULAR RHYTHM, +S1, +S2 - GI/Abdominal Exam GI & Abdominal Exam: Distended, Normal Bowel Sounds. absent: Firm, Tenderness - Extremities Exam Extremities exam: Positive for: pedal edema Results - Vital Signs Recent Vital Signs: Last Vital Signs Temp 98 F 08/20/16 20:03 Pulse 76 08/20/16 21:00 Resp 20 08/20/16 20:03 BP 115/75 08/20/16 21:45 Pulse Ox 97 08/20/16 20:03 - Labs Result Diagrams: 08/20/16 06:30 08/20/16 06:30 Labs: Laboratory Results - last 24 hr 08/19/16 08/20/16 08/20/16 22:59 00:20 06:30 WBC RBC Hgb Hct MCV MCH MCHC RDW Plt Count Sodium 135 137 Potassium 5.0 4.9 Chloride 107 108 H Carbon Dioxide 23 24 Anion Gap 10 10 BUN 40 H 39 H Creatinine 1.5 1.5 Est GFR ( Amer) 56 56 Est GFR (Non-Af Amer) 46 46 Random Glucose 95 73 L Calcium 7.7 L 7.7 L Ammonia Blood Type Confirm A POSITIVE 08/20/16 08/20/16 06:30 06:30 WBC 8.6 RBC 2.61 L Hgb 9.3 L Hct 27.4 L MCV 105.3 H MCH 35.7 H MCHC 33.9 RDW 16.6 H Plt Count 95 L Sodium Potassium Chloride Carbon Dioxide Anion Gap BUN Creatinine Est GFR ( Amer) Est GFR (Non-Af Amer) Random Glucose Calcium Ammonia 46 D Blood Type Confirm Assessment & Plan (1) Cirrhosis of liver with ascites Assessment and Plan: Has ascites but not tense and patient is not c/o symptoms . With BUN/creatinine so high aldactone may cause hyperkalemia. Will try Monday giving IV lasix with IV albumin to try to improve ascites and maybe even leg edema. Status: Acute
[2016-08-21] MEDS: ceFAZolin 1 GM in Sodium Chloride 0.9% 100 ML IVPB SCH ×3 (00:27→16:37)
[2016-08-21 08:25] LABS: MEAN CELL VOLUME 104.9 fl (80.0-94.0); MEAN CORPUSCULAR HEMOGLOBIN 35.5 pg (27.0-31.0); MEAN CORPUSCULAR HGB CONC 33.9 g/dL (33.0-37.0); RED CELL DISTRIBUTION WIDTH 16.4 % (11.5-14.5); WHITE BLOOD COUNT 9.4 K/uL (4.8-10.8)
[2016-08-21 08:36] LABS: ALB/GLOB RATIO 0.4 (1.0-2.1); BILIRUBIN,TOTAL 2.4 mg/dl (0.2-1.3); CALCIUM 7.6 mg/dL (8.4-10.2); POTASSIUM 4.9 MMOL/L (3.6-5.0); TOTAL PROTEIN 7.1 G/DL (6.3-8.2)
--- NOTE | 2016-08-21 09:24 | CP.PCM.PN ---
Subjective - Date & Time of Evaluation Date of Evaluation: 08/21/16 Time of Evaluation: 08:15 - Subjective Subjective: NO CHEST PAIN OR SOB AT THE PRESENT TIME HAD LEFT SHOULDER PAIN YESTERDAY WITH LIFTING HIMSELF TO REPOSITION HIMSELF IN BED HAD SOME WHEEZING LAST NIGHT LESS ARE LESS TIGHT AND HE FEELS BETTER TODAY Objective - Vital Signs/Intake and Output Vital Signs (last 24 hours): Temp Pulse Resp BP Pulse Ox 97.3 F L 76 18 104/52 L 96 08/21/16 07:53 08/21/16 09:15 08/21/16 07:53 08/21/16 09:18 08/21/16 07:53 Intake and Output: 08/21/16 08/21/16 06:59 18:59 Intake Total 250 Balance 250 - Medications Medications: Current Medications Acetaminophen (Tylenol 325mg Tab) 650 mg PO Q6 PRN PRN Reason: Pain, moderate (4-7) Last Admin: 08/20/16 21:38 Dose: 650 mg Amiodarone HCl (Cordarone) 200 mg PO DAILY [facility] Last Admin: 08/21/16 09:15 Dose: 200 mg Clotrimazole (Lotrimin 1% Cream) 1 applic TOP BID [facility] Last Admin: 08/21/16 09:16 Dose: 1 applic Furosemide (Lasix) 20 mg IVP Q12 [facility] Last Admin: 08/21/16 09:18 Dose: 20 mg Hydrocortisone (Cortizone 1% Cream) 1 applic TOP BID [facility] Last Admin: 08/21/16 09:18 Dose: 1 applic Cefazolin Sodium 1 gm/ Sodium (Chloride) 100 mls @ 100 mls/hr IVPB Q8 [facility] Last Admin: 08/21/16 09:19 Dose: 100 mls/hr - Labs Labs: 08/21/16 06:30 08/21/16 06:30 PT 23.3 Seconds (9.8-13.1) H 08/19/16 17:50 INR 2.0 (0.9-1.2) H 08/19/16 17:50 APTT 42.2 Seconds (25.6-37.1) H 08/19/16 17:50 - Respiratory Exam Respiratory Exam: Clear to Ausculation Bilateral - Cardiovascular Exam Cardiovascular Exam: REGULAR RHYTHM, +S1, +S2 - Extremities Exam Additional comments: LE EDEMA DECRESING CELLULITIS STILL PRESENT BUT SLIGHTLY IMPROVED TODAY, LESS WARM - Additional Findings Additional findings: 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
[2016-08-21] MEDS ORDERED: Albumin Human 25% (12.5 gm/50 ml) IV ONE (12:30)
--- NOTE | 2016-08-21 13:18 | CP.PCM.PN ---
Subjective - Date & Time of Evaluation Date of Evaluation: 08/21/16 Time of Evaluation: 13:18 - Subjective Subjective: Patient seen and evaluated at bedside, NAD. Patient has no new complaints today , states that his feet feel less swollen than yesterday. He denies n/v/f/c/sob. Objective - Vital Signs/Intake and Output Vital Signs (last 24 hours): Temp Pulse Resp BP Pulse Ox 97.2 F L 74 18 111/53 L 97 08/21/16 12:17 08/21/16 12:17 08/21/16 12:17 08/21/16 12:17 08/21/16 12:17 Intake and Output: 08/21/16 08/21/16 06:59 18:59 Intake Total 250 Balance 250 - Medications Medications: Current Medications Acetaminophen (Tylenol 325mg Tab) 650 mg PO Q6 PRN PRN Reason: Pain, moderate (4-7) Last Admin: 08/20/16 21:38 Dose: 650 mg Albuterol/Ipratropium (Duoneb 3 Mg/0.5 Mg (3 Ml) Ud) 3 ml INH RTID [facility] Amiodarone HCl (Cordarone) 200 mg PO DAILY [facility] Last Admin: 08/21/16 09:15 Dose: 200 mg Clotrimazole (Lotrimin 1% Cream) 1 applic TOP BID [facility] Last Admin: 08/21/16 09:16 Dose: 1 applic Furosemide (Lasix) 20 mg IVP Q12 [facility] Last Admin: 08/21/16 09:18 Dose: 20 mg Hydrocortisone (Cortizone 1% Cream) 1 applic TOP BID [facility] Last Admin: 08/21/16 09:18 Dose: 1 applic Cefazolin Sodium 1 gm/ Sodium (Chloride) 100 mls @ 100 mls/hr IVPB Q8 [facility] Last Admin: 08/21/16 09:19 Dose: 100 mls/hr - Labs Labs: 08/21/16 06:30 08/21/16 06:30 PT 23.3 Seconds (9.8-13.1) H 08/19/16 17:50 INR 2.0 (0.9-1.2) H 08/19/16 17:50 APTT 42.2 Seconds (25.6-37.1) H 08/19/16 17:50 - Constitutional Appears: Well, Non-toxic, No Acute Distress - Neurological Exam Neurological Exam: Oriented x3 - Psychiatric Exam Psychiatric exam: Normal Affect, Normal Mood - Additional Findings Additional findings: DERMATOLOGIC: Bilateral diffuse erythema to the extremities extending to just below the knees , improved from yesterday. There is minimal drainage to bilateral lateral ankles. There are two small drained blisters on the left anterior ankle. There is scaling and xerosis bilaterally. No deep wounds, no purulent drainage. VASCULAR: DP/PT pulses 2/4, TUMOR REGISTRAR<3 seconds. There is diffuse edema of bilateral lower extremities, improved. Skin temperature mildly elevated. NEUROLOGIC: Gross sensation intact, motor function intact ORTHOPEDIC: Pain on palpation to bilateral lower extremities Assessment and Plan - Assessment and Plan (Free Text) Assessment: 71 year old male with bilateral lower extremity cellulitis and superficial ulcerations Plan: Patient seen and evaluated, d/w attending Dr. Olivo. Applied hydrocortisone and clotrimazole to bilateral legs, silvadene applied to blister area. Legs dressed with adaptic, DSD, NABIL bilaterally Continue IV abx per ID Podiatry will continue to follow
[2016-08-21] MEDS: Albuterol-Ipratrop 3 mg / 0.5 (3 ml) UD INH SCH ×2 (13:28→19:18)
--- NOTE | 2016-08-21 14:04 | CP.PCM.CON ---
History of Present Illness - History of Present Illness History of Present Illness: 71 y/o male presents to the emergency department with a complaint of ongoing worsening, since onset, bilateral (left is worse than right) leg swelling x1 month. Associated with redness. Reports wound on the left leg is expressing yellow discharge. States he is compliant with his diuretics for hypertension. Seen 10 days ago in this ER and started on antibiotics after workup for sepsis and DVT were negative, and after one dose of IV clindamycin. Patient was seen by his PMD today and was advised to visit the ER because he is not getting better. 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 Denies chest pain, fever, or chills. - Medical History PMH: Arthritis, Atrial Fibrillation, Back Problems (Chronic), HTN Denies: Chronic Kidney Disease Other PMH: Liver cirrhosis and ascites - Review of Systems - Constitutional Constitutional: As Per HPI - EENT Eyes: absent: As Per HPI, Blind Spots, Blurred Vision, Change in Vision, Decreased Night Vision, Diplopia, Discharge, Dry Eye, Exophthalmos, Floaters, Irritation, Itchy Eyes, Loss of Peripheral Vision, Pain, Photophobia, Requires Corrective Lenses, Sees Flashes, Spots in Vision, Tunnel Vision, Other Visual Disturbances, Loss of Vision, Other Ears: absent: As Per HPI, Decreased Hearing, Ear Discharge, Ear Pain, Tinnitus, Abnormal Hearing, Disequilibrium, Dizziness, Other Nose/Mouth/Throat: absent: As Per HPI, Epistaxis, Nasal Congestion, Nasal Discharge, Nasal Obstruction, Nasal Trauma, Nose Pain, Post Nasal Drip, Sinus Pain, Sinus Pressure, Bleeding Gums, Change in Voice, Dental Pain, Dry Mouth, Dysphagia, Halitosis, Hoarsness, Lip Swelling, Mouth Lesions, Mouth Pain, Odynophagia, Sore Throat, Throat Swelling, Tongue Swelling, Facial Pain, Neck Pain, Neck Mass, Other - Cardiovascular Cardiovascular: absent: As Per HPI, Acrocyanosis, Chest Pain, Chest Pain at Rest , Chest Pain with Activity, Claudication, Diaphoresis, Dyspnea, Dyspnea on Exertion, Edema, Irregular Heart Rhythm, Pain Radiating to Arm/Neck/Jaw, Leg Edema, Leg Ulcers, Lightheadedness, Orthopnea, Palpitations, Paroxysmal Nocturnal Dyspnea, Pedal Edema, Radiating Pain, Rapid Heart Rate, Slow Heart Rate, Syncope, Other - Respiratory Respiratory: As Per HPI, Cough, Dyspnea - Gastrointestinal Gastrointestinal: As Per HPI, Abdominal Pain - Genitourinary Genitourinary: absent: As Per HPI, Change in Urinary Stream, Difficulty Urinating, Dysuria, Flank Pain, Hematuria, Pyuria, Nocturia, Urinary Incontinence, Urinary Frequency, Urinary Hesitance, Urinary Urgency, Voiding Freq/Small Amts, Freq UTI, Hx Renal/Bladder Calculi, Hx /Renal Surgery, Bladder Distension, Other - Musculoskeletal Musculoskeletal: As Per HPI - Integumentary Integumentary: As Per HPI - Neurological Neurological: absent: As Per HPI, Abnormal Gait, Abnormal Hearing, Abnormal Movements, Abnormal Speech, Behavioral Changes, Burning Sensations, Confusion, Convulsions, Disequilibrium, Dizziness, Numbness, Focal Weakness, Frequent Falls , Headaches, Lack of Coordination, Loss of Vision, Memory Loss, Paresthesias, Radicular Pain, Restless Legs, Sensory Deficit, Syncope, Tingling, Tremor, Vertigo, Weakness, Other Visual Disturbances, Other - Psychiatric Psychiatric: absent: As Per HPI, Abnormal Sleep Pattern, Anhedonia, Anxiety, Auditory Hallucinations, Behavioral Changes, Change in Appetite, Change in Libido, Confusion, Depression, Difficulty Concentrating, Hallucinations, Homicidal Ideation, Hopelessness, Irritability, Memory Loss, Mood Swings, Panic Attacks, Paranoia, Suicidal Ideation, Visual Hallucinations, Tactile Hallucinations, Other - Endocrine Endocrine: absent: As Per HPI, Change in Body Appearance, Change in Libido, Cold Intolorance, Deepening of Voice, Excessive Sweating, Fatigue, Flushing, Heat Intolorance, Increase in Ring/Shoe/Hat Size, Palpitations, Polydipsia, Polyphagia, Polyuria, Other - Hematologic/Lymphatic Hematologic: absent: As Per HPI, Easy Bleeding, Easy Bruising, Lymphadenopathy, Other Past Patient History - Past Medical History & Family History Past Medical History?: Yes - Past Social History Smoking Status: Former Smoker - CARDIAC Hx Atrial Fibrillation: Yes Hx Hypertension: Yes Hx Peripheral Edema: Yes - PULMONARY Hx Respiratory Disorders: No - NEUROLOGICAL Hx Neurological Disorder: No - HEENT Hx HEENT Problems: No - RENAL Hx Chronic Kidney Disease: No - ENDOCRINE/METABOLIC Hx Endocrine Disorders: No - HEMATOLOGICAL/ONCOLOGICAL Hx Blood Disorders: No Hx AIDS: No Hx Blood Transfusions: No Hx Human Immunodeficiency Virus (HIV): No - INTEGUMENTARY Hx Dermatological Problems: No - MUSCULOSKELETAL/RHEUMATOLOGICAL Hx Arthritis: Yes Hx Falls: Yes - GASTROINTESTINAL Other/Comment: Liver Cirrhosis - GENITOURINARY/GYNECOLOGICAL Hx Genitourinary Disorders: No - PSYCHIATRIC Hx Emotional Abuse: No Hx Physical Abuse: No Hx Substance Use: No - SURGICAL HISTORY Hx Surgeries: Yes Other/Comment: 2000 arthroscopic knee surgery - ANESTHESIA Hx Anesthesia: Yes Hx Anesthesia Reactions: No Hx Malignant Hyperthermia: No Meds Allergies/Adverse Reactions: Allergies Allergy/AdvReac Type Severity Reaction Status Date / Time No Known Allergies Allergy Verified 08/08/16 18:05 - Medications Medications: Current Medications Acetaminophen (Tylenol 325mg Tab) 650 mg PO Q6 PRN PRN Reason: Pain, moderate (4-7) Last Admin: 08/20/16 21:38 Dose: 650 mg Albuterol/Ipratropium (Duoneb 3 Mg/0.5 Mg (3 Ml) Ud) 3 ml INH RTID [facility] Last Admin: 08/21/16 13:28 Dose: 3 ml Amiodarone HCl (Cordarone) 200 mg PO DAILY [facility] Last Admin: 08/21/16 09:15 Dose: 200 mg Clotrimazole (Lotrimin 1% Cream) 1 applic TOP BID [facility] Last Admin: 08/21/16 09:16 Dose: 1 applic Furosemide (Lasix) 20 mg IVP Q12 [facility] Last Admin: 08/21/16 09:18 Dose: 20 mg Hydrocortisone (Cortizone 1% Cream) 1 applic TOP BID [facility] Last Admin: 08/21/16 09:18 Dose: 1 applic Cefazolin Sodium 1 gm/ Sodium (Chloride) 100 mls @ 100 mls/hr IVPB Q8 [facility] Last Admin: 08/21/16 09:19 Dose: 100 mls/hr Physical Exam - Constitutional Appears: Non-toxic, Chronically Ill - Head Exam Head Exam: ATRAUMATIC, NORMAL INSPECTION, NORMOCEPHALIC - Eye Exam Eye Exam: EOMI, PERRL. absent: Scleral icterus - ENT Exam ENT Exam: Mucous Membranes Dry, Normal External Ear Exam, Normal Oropharynx - Neck Exam Neck exam: Negative for: Lymphadenopathy - Respiratory Exam Respiratory Exam: Decreased Breath Sounds, Rhonchi - Cardiovascular Exam Cardiovascular Exam: REGULAR RHYTHM, +S1, +S2 - GI/Abdominal Exam GI & Abdominal Exam: Diminished Bowel Sounds, Distended, Soft. absent: Organomegaly, Pulsatile Mass, Rebound, Tenderness - Rectal Exam Rectal Exam: Deferred - Exam Exam: NORMAL INSPECTION - Extremities Exam Extremities exam: Positive for: pedal edema, tenderness. Negative for: calf tenderness, pedal pulses present - Back Exam Back exam: absent: CVA tenderness (L), CVA tenderness (R), paraspinal tenderness - Neurological Exam Neurological exam: Alert, CN II-XII Intact, Oriented x3, Reflexes Normal - Psychiatric Exam Psychiatric exam: Normal Mood - Skin Skin Exam: Dry Results - Vital Signs Recent Vital Signs: Last Vital Signs Temp 97.2 F L 08/21/16 12:17 Pulse 72 08/21/16 13:32 Resp 18 08/21/16 12:17 BP 111/53 L 08/21/16 12:17 Pulse Ox 97 08/21/16 12:17 - Labs Result Diagrams: 08/21/16 06:30 08/21/16 06:30 Labs: Laboratory Results - last 24 hr 08/21/16 08/21/16 06:30 06:30 WBC 9.4 RBC 2.67 L Hgb 9.5 L Hct 28.0 L MCV 104.9 H MCH 35.5 H MCHC 33.9 RDW 16.4 H Plt Count 97 L Sodium 137 Potassium 4.9 Chloride 109 H Carbon Dioxide 24 Anion Gap 9 L BUN 40 H Creatinine 1.5 Est GFR ( Amer) 56 Est GFR (Non-Af Amer) 46 Random Glucose 72 L Calcium 7.6 L Total Bilirubin 2.4 H AST 61 H ALT 29 Alkaline Phosphatase 108 Total Protein 7.1 Albumin 2.1 L Globulin 5.1 H Albumin/Globulin Ratio 0.4 L Assessment & Plan (1) Cirrhosis of liver with ascites Status: Acute (2) Erysipelas of lower extremity Status: Acute (3) Leg edema Status: Acute - Assessment and Plan (Free Text) Assessment: CONT DIURETICS, COMPRESSION, WOUND CARE AND iv ANTIBIOTICS
--- NOTE | 2016-08-21 14:40 | CARD ---
APPROVED REPORT EKG Measurement Heart [id number] <Conclusion> Sinus rhythm Left anterior fascicular block Abnormal ECG
--- NOTE | 2016-08-21 16:47 | CP.PCM.PN ---
Subjective - Date & Time of Evaluation Date of Evaluation: 08/21/16 Time of Evaluation: 22:22 - Subjective Subjective: Above noted Objective - Vital Signs/Intake and Output Vital Signs (last 24 hours): Temp Pulse Resp BP Pulse Ox 97.4 F L 76 20 98/54 L 100 08/21/16 15:45 08/21/16 15:45 08/21/16 15:45 08/21/16 15:45 08/21/16 15:45 Intake and Output: 08/21/16 08/21/16 06:59 18:59 Intake Total 250 Balance 250 - Medications Medications: Current Medications Acetaminophen (Tylenol 325mg Tab) 650 mg PO Q6 PRN PRN Reason: Pain, moderate (4-7) Last Admin: 08/20/16 21:38 Dose: 650 mg Albuterol/Ipratropium (Duoneb 3 Mg/0.5 Mg (3 Ml) Ud) 3 ml INH RTID [facility] Last Admin: 08/21/16 13:28 Dose: 3 ml Amiodarone HCl (Cordarone) 200 mg PO DAILY [facility] Last Admin: 08/21/16 09:15 Dose: 200 mg Clotrimazole (Lotrimin 1% Cream) 1 applic TOP BID [facility] Last Admin: 08/21/16 16:38 Dose: 1 applic Furosemide (Lasix) 20 mg IVP Q12 [facility] Last Admin: 08/21/16 09:18 Dose: 20 mg Hydrocortisone (Cortizone 1% Cream) 1 applic TOP BID [facility] Last Admin: 08/21/16 16:37 Dose: 1 applic Cefazolin Sodium 1 gm/ Sodium (Chloride) 100 mls @ 100 mls/hr IVPB Q8 [facility] Last Admin: 08/21/16 16:37 Dose: 100 mls/hr - Labs Labs: 08/21/16 06:30 08/21/16 06:30 PT 23.3 Seconds (9.8-13.1) H 08/19/16 17:50 INR 2.0 (0.9-1.2) H 08/19/16 17:50 APTT 42.2 Seconds (25.6-37.1) H 08/19/16 17:50 - Respiratory Exam Respiratory Exam: Prolonged Expiratory Phase - Cardiovascular Exam Cardiovascular Exam: REGULAR RHYTHM - GI/Abdominal Exam GI & Abdominal Exam: Normal Bowel Sounds Assessment and Plan - Assessment and Plan (Free Text) Assessment: Lower extremity edema with cellulitis Cefazolin ID COPD?? Duoneb repeat CXR Pulmonary consult Cirrhosis Hepatosplenomegaly Portal HTN ascites etiol?? Pancytopenia Low prot/alb s/p paracentesis last admission Lasix Albumin ?? Aldactone CKD? Hepatorenal? GI Nephrology Liver transplant? Low back pain etiol? improved Physiatry consult A-fib/ rate controlled Amiodorone INR 2.0 Cardiology
--- NOTE | 2016-08-21 19:34 | CP.PCM.PN ---
Subjective - Date & Time of Evaluation Date of Evaluation: 08/21/16 Time of Evaluation: 19:32 - Subjective Subjective: Patient without any new complaints. Receiving local care to legs. Objective - Vital Signs/Intake and Output Vital Signs (last 24 hours): Temp Pulse Resp BP Pulse Ox 97.9 F 75 20 112/54 L 100 08/21/16 19:09 08/21/16 19:09 08/21/16 19:09 08/21/16 19:09 08/21/16 19:09 Intake and Output: 08/21/16 08/22/16 18:59 06:59 Intake Total 800 Balance 800 - Medications Medications: Current Medications Acetaminophen (Tylenol 325mg Tab) 650 mg PO Q6 PRN PRN Reason: Pain, moderate (4-7) Last Admin: 08/20/16 21:38 Dose: 650 mg Albuterol/Ipratropium (Duoneb 3 Mg/0.5 Mg (3 Ml) Ud) 3 ml INH RTID [facility] Last Admin: 08/21/16 19:18 Dose: 3 ml Amiodarone HCl (Cordarone) 200 mg PO DAILY [facility] Last Admin: 08/21/16 09:15 Dose: 200 mg Clotrimazole (Lotrimin 1% Cream) 1 applic TOP BID [facility] Last Admin: 08/21/16 16:38 Dose: 1 applic Furosemide (Lasix) 20 mg IVP Q12 [facility] Last Admin: 08/21/16 09:18 Dose: 20 mg Hydrocortisone (Cortizone 1% Cream) 1 applic TOP BID [facility] Last Admin: 08/21/16 16:37 Dose: 1 applic Cefazolin Sodium 1 gm/ Sodium (Chloride) 100 mls @ 100 mls/hr IVPB Q8 [facility] Last Admin: 08/21/16 16:37 Dose: 100 mls/hr - Labs Labs: 08/21/16 06:30 08/21/16 06:30 PT 23.3 Seconds (9.8-13.1) H 08/19/16 17:50 INR 2.0 (0.9-1.2) H 08/19/16 17:50 APTT 42.2 Seconds (25.6-37.1) H 08/19/16 17:50 - Head Exam Head Exam: ATRAUMATIC - Eye Exam Eye Exam: Normal appearance Pupil Exam: NORMAL ACCOMODATION - ENT Exam ENT Exam: Mucous Membranes Moist - Neck Exam Neck Exam: Full ROM - Respiratory Exam Respiratory Exam: Clear to Ausculation Bilateral - Cardiovascular Exam Cardiovascular Exam: REGULAR RHYTHM - GI/Abdominal Exam GI & Abdominal Exam: Distended, Normal Bowel Sounds. absent: Rigid, Rebound - Exam External exam: Swelling Assessment and Plan (1) Cirrhosis of liver with ascites Assessment & Plan: Continue antibiotics , wrapping, and local leg care. BUN/creatinine still high r /o hepatorenal syndrome. Continue IV albumin Q8H and continue low salt diet. Status: Acute
[2016-08-22] MEDS: ceFAZolin 1 GM in Sodium Chloride 0.9% 100 ML IVPB SCH ×3 (00:42→17:18)
--- NOTE | 2016-08-22 06:36 | CP.PCM.PN ---
Subjective - Date & Time of Evaluation Date of Evaluation: 08/22/16 Time of Evaluation: 06:35 - Subjective Subjective: 71 yo male seen at bedside with attending Dr. Olivo for bilateral leg swelling and redness. Patient denies any acute events overnight. He appears in NAD and AAOx3. Patient denies n/f/v/c/d/sob. Patients dressings to legs remain clean,dry,intact. Objective - Vital Signs/Intake and Output Vital Signs (last 24 hours): Temp Pulse Resp BP Pulse Ox 97.4 F L 78 19 114/52 L 99 08/22/16 04:40 08/22/16 04:40 08/22/16 04:40 08/22/16 04:40 08/22/16 04:40 Intake and Output: 08/21/16 08/22/16 18:59 06:59 Intake Total 800 Balance 800 - Medications Medications: Current Medications Acetaminophen (Tylenol 325mg Tab) 650 mg PO Q6 PRN PRN Reason: Pain, moderate (4-7) Last Admin: 08/20/16 21:38 Dose: 650 mg Albuterol/Ipratropium (Duoneb 3 Mg/0.5 Mg (3 Ml) Ud) 3 ml INH RTID [facility] Last Admin: 08/21/16 19:18 Dose: 3 ml Amiodarone HCl (Cordarone) 200 mg PO DAILY [facility] Last Admin: 08/21/16 09:15 Dose: 200 mg Clotrimazole (Lotrimin 1% Cream) 1 applic TOP BID [facility] Last Admin: 08/21/16 16:38 Dose: 1 applic Furosemide (Lasix) 20 mg IVP Q12 [facility] Last Admin: 08/21/16 21:48 Dose: 20 mg Hydrocortisone (Cortizone 1% Cream) 1 applic TOP BID [facility] Last Admin: 08/21/16 16:37 Dose: 1 applic Cefazolin Sodium 1 gm/ Sodium (Chloride) 100 mls @ 100 mls/hr IVPB Q8 [facility] Last Admin: 08/22/16 00:42 Dose: 100 mls/hr - Labs Labs: 08/21/16 06:30 08/21/16 06:30 PT 23.3 Seconds (9.8-13.1) H 08/19/16 17:50 INR 2.0 (0.9-1.2) H 08/19/16 17:50 APTT 42.2 Seconds (25.6-37.1) H 08/19/16 17:50 - Constitutional Appears: Well, Non-toxic, No Acute Distress - Extremities Exam Additional comments: DERMATOLOGIC: Bilateral diffuse erythema to the extremities extending to just below the knees , improved from yesterday. There is minimal drainage to bilateral lateral ankles. There are two small drained blisters on the left anterior ankle. There is scaling and xerosis bilaterally. No deep wounds, no purulent drainage. VASCULAR: DP/PT pulses 2/4, METAL F[employer]ITURE POL[employer]ER<3 seconds. There is diffuse edema of bilateral lower extremities, improved. Skin temperature mildly elevated. NEUROLOGIC: Gross sensation intact, motor function intact ORTHOPEDIC: Pain on palpation to bilateral lower extremities - Neurological Exam Neurological Exam: Alert, Awake, Oriented x3 - Psychiatric Exam Psychiatric exam: Normal Affect, Normal Mood Assessment and Plan - Assessment and Plan (Free Text) Assessment: 71 year old male with bilateral lower extremity cellulitis/vasculitis and superficial ulcerations Plan: Patient seen and evaluated with attending Dr. Olivo. labs and vitals reviewed Legs dressed with DSD, NABIL bilaterally Rx Silvadene cream Continue IV abx per ID Podiatry will continue to follow
[2016-08-22 06:46] LABS: HEMATOCRIT 28.8 % (35.0-51.0); MEAN CELL VOLUME 105.7 fl (80.0-94.0); MEAN CORPUSCULAR HEMOGLOBIN 35.4 pg (27.0-31.0); MEAN CORPUSCULAR HGB CONC 33.5 g/dL (33.0-37.0); RED CELL DISTRIBUTION WIDTH 16.3 % (11.5-14.5); WHITE BLOOD COUNT 10.1 K/uL (4.8-10.8)
[2016-08-22 06:53] LABS: ALB/GLOB RATIO 0.4 (1.0-2.1); BILIRUBIN,TOTAL 2.5 mg/dl (0.2-1.3); CALCIUM 7.6 mg/dL (8.4-10.2); POTASSIUM 5.1 MMOL/L (3.6-5.0); TOTAL PROTEIN 7.5 G/DL (6.3-8.2)
[2016-08-22] MEDS: Albuterol-Ipratrop 3 mg / 0.5 (3 ml) UD INH SCH ×4 (08:00→19:49)
--- NOTE | 2016-08-22 09:31 | RAD ---
PROCEDURE: CHEST RADIOGRAPH, 1 VIEW HISTORY: Shortness of breath. COMPARISON: 08/19/2016. FINDINGS: LUNGS: Clear. PLEURA: No pneumothorax or pleural fluid seen. CARDIOVASCULAR: No radiographic findings to suggest acute or significant cardiovascular disease. OSSEOUS STRUCTURES: No significant abnormalities. VISUALIZED UPPER ABDOMEN: Normal. OTHER FINDINGS: None. IMPRESSION: No active disease. No acute/significant interval changes.
--- NOTE | 2016-08-22 10:00 | CP.PCM.CON ---
History of Present Illness - History of Present Illness History of Present Illness: Asked to see this 71 year old gentleman, a former cigarette smoker, because of recurrent wheezing and shortness of breath. He has occasional cough which is productive of a clear 'watery' sputum, but no hemoptysis. He is unaware of any prior pulmonary disease in childhood or adulthood. He had smoked for 10 years, but stopped in the . No prior pneumonia or asthma, no frequent URI's, no sinusitis. No history of seasonal allergies. His current medical history appears to be only 2 months duration associated with leg edema and ascites. He has been seen by cardiology and gastroenterology as well. His only significant medical illness and chronic medication has been hypertension. Review of Systems - Review of Systems All systems: reviewed and no additional remarkable complaints except - Constitutional Constitutional: Weight Gain - EENT Nose/Mouth/Throat: Epistaxis, Nasal Congestion - Cardiovascular Cardiovascular: Irregular Heart Rhythm, Leg Edema, Orthopnea - Respiratory Respiratory: Wheezing - Gastrointestinal Gastrointestinal: Other (abdominal distension) - Musculoskeletal Musculoskeletal: Muscle Weakness Past Patient History - Past Medical History & Family History Past Medical History?: Yes - Past Social History Smoking Status: Former Smoker Chewing Tobacco Use: No Cigar Use: No Alcohol: Social Drugs: Denies Home Situation {Lives}: With Family - CARDIAC Hx Atrial Fibrillation: Yes Hx Hypertension: Yes Hx Peripheral Edema: Yes - PULMONARY Hx Respiratory Disorders: No - NEUROLOGICAL Hx Neurological Disorder: No - HEENT Hx HEENT Problems: No - RENAL Hx Chronic Kidney Disease: No - ENDOCRINE/METABOLIC Hx Endocrine Disorders: No - HEMATOLOGICAL/ONCOLOGICAL Hx Blood Disorders: No Hx Human Immunodeficiency Virus (HIV): No - INTEGUMENTARY Hx Dermatological Problems: No - MUSCULOSKELETAL/RHEUMATOLOGICAL Hx Arthritis: Yes Hx Falls: Yes - GASTROINTESTINAL Other/Comment: Liver Cirrhosis - GENITOURINARY/GYNECOLOGICAL Hx Genitourinary Disorders: No - PSYCHIATRIC Hx Psychophysiologic Disorder: No Hx Substance Use: No - SURGICAL HISTORY Hx Surgeries: Yes Other/Comment: 2000 arthroscopic knee surgery - ANESTHESIA Hx Anesthesia: Yes Hx Anesthesia Reactions: No Hx Malignant Hyperthermia: No Meds Allergies/Adverse Reactions: Allergies Allergy/AdvReac Type Severity Reaction Status Date / Time No Known Allergies Allergy Verified 08/08/16 18:05 - Medications Medications: Current Medications Acetaminophen (Tylenol 325mg Tab) 650 mg PO Q6 PRN PRN Reason: Pain, moderate (4-7) Last Admin: 06/05/17 06:34 Dose: 650 mg Albuterol/Ipratropium (Duoneb 3 Mg/0.5 Mg (3 Ml) Ud) 3 ml INH RTID [facility] Last Admin: 08/22/16 08:00 Dose: 3 ml Amiodarone HCl (Cordarone) 200 mg PO DAILY [facility] Last Admin: 08/21/16 09:15 Dose: 200 mg Clotrimazole (Lotrimin 1% Cream) 1 applic TOP BID [facility] Last Admin: 08/21/16 16:38 Dose: 1 applic Furosemide (Lasix) 20 mg IVP Q12 [facility] Last Admin: 08/21/16 21:48 Dose: 20 mg Hydrocortisone (Cortizone 1% Cream) 1 applic TOP BID [facility] Last Admin: 08/21/16 16:37 Dose: 1 applic Cefazolin Sodium 1 gm/ Sodium (Chloride) 100 mls @ 100 mls/hr IVPB Q8 [facility] Last Admin: 08/22/16 00:42 Dose: 100 mls/hr Physical Exam - Additional Findings Additional findings: Pleasant male, seated on EOB, alert and oriented x 3. Speech is fluent, memory is intact. Pharynx is pink and moist w/o exudate. Nares are patent bilaterally. Conjunctivae are pink and non-icteric. Neck is supple and trachea midline. No visible JVD. Carotid upstroke slightly blunted bilaterally, no bruits. No palpable thyromegaly. No palpable lymphadenopathy. No dullness on chest percussion, normal vocal tactile fremitus. Breath sounds are present bilaterally, well heard w/o audible wheezes or rales. No bronchial breath sounds or egophony. No rhonchi. Heart sounds are well heard and rhythm appears regular. Markedly distended, tense abdomen. Marked edema of both LE's extending to the upper thigh bilaterally, no cyanosis. Results - Vital Signs Recent Vital Signs: Last Vital Signs Temp 98.6 F 08/22/16 08:00 Pulse 82 08/22/16 08:00 Resp 24 08/22/16 08:00 BP 100/48 L 08/22/16 08:00 Pulse Ox 95 08/22/16 08:00 - Labs Result Diagrams: 08/22/16 06:05 08/22/16 06:05 Labs: Laboratory Results - last 24 hr 08/22/16 08/22/16 06:05 06:05 WBC 10.1 RBC 2.72 L Hgb 9.6 L Hct 28.8 L MCV 105.7 H MCH 35.4 H MCHC 33.5 RDW 16.3 H Plt Count 101 L Sodium 138 Potassium 5.1 H Chloride 109 H Carbon Dioxide 23 Anion Gap 11 BUN 45 H Creatinine 1.6 H Est GFR ( Amer) 52 Est GFR (Non-Af Amer) 43 Random Glucose 68 L Calcium 7.6 L Total Bilirubin 2.5 H AST 57 ALT 23 Alkaline Phosphatase 97 Total Protein 7.5 Albumin 2.3 L Globulin 5.3 H Albumin/Globulin Ratio 0.4 L Assessment & Plan (1) Wheezing symptom Status: Acute Priority: High Comment: Symptoms are episodic, only transiently relieved with nebulized bronchodilator. This appears to be aggravated by position; more when he reclines for sleep. Compression of the lower lung petit due to the ascites may be one source, hepatopulmonary syndrome is another possibility. There has been no evidence of DVT or CTEPH. Aspiration, GERD may be partly responsible also. - Assessment and Plan (Free Text) Plan: Monitor continuous SpO2. ABG. PFT with diffusing capacity. Will discuss with GI and Cardiology. - Date & Time Date: 08/22/16 Time: 10:24
--- NOTE | 2016-08-22 10:23 | CP.PCM.CON ---
History of Present Illness - History of Present Illness History of Present Illness: This patient who is 71 years old I was called to see him for abnormal kidney function. Patient was admitted with increasing leg swollen and redness apparently was reported and has been going on for a while. Patient is not giving much history about chronic kidney disease or any significant history of liver disease. Patient has been taken diuretics as outpatient apparently Social history noncontributory as noted in the chart Review of systems see the rest of the exam Review of Systems - Constitutional Constitutional: Weakness - EENT Eyes: As Per HPI - Cardiovascular Cardiovascular: Dyspnea on Exertion, Edema, Leg Edema. absent: Chest Pain - Respiratory Respiratory: Cough, Dyspnea, Chest Congestion - Gastrointestinal Gastrointestinal: Abdominal Pain. absent: Coffee Ground Emesis, Diarrhea, Nausea, Vomiting - Genitourinary Genitourinary: Nocturia - Musculoskeletal Musculoskeletal: Muscle Weakness - Psychiatric Psychiatric: As Per HPI - Endocrine Endocrine: As Per HPI - Hematologic/Lymphatic Hematologic: absent: Easy Bruising Past Patient History - Past Medical History & Family History Past Medical History?: Yes - Past Social History Smoking Status: Former Smoker Chewing Tobacco Use: No Cigar Use: No Alcohol: Social Drugs: Denies Home Situation {Lives}: With Family - CARDIAC Hx Atrial Fibrillation: Yes Hx Hypertension: Yes Hx Peripheral Edema: Yes - PULMONARY Hx Respiratory Disorders: No - NEUROLOGICAL Hx Neurological Disorder: No - HEENT Hx HEENT Problems: No - RENAL Hx Chronic Kidney Disease: No - ENDOCRINE/METABOLIC Hx Endocrine Disorders: No - HEMATOLOGICAL/ONCOLOGICAL Hx Blood Disorders: No Hx Human Immunodeficiency Virus (HIV): No - INTEGUMENTARY Hx Dermatological Problems: No - MUSCULOSKELETAL/RHEUMATOLOGICAL Hx Arthritis: Yes Hx Falls: Yes - GASTROINTESTINAL Other/Comment: Liver Cirrhosis - GENITOURINARY/GYNECOLOGICAL Hx Genitourinary Disorders: No - PSYCHIATRIC Hx Psychophysiologic Disorder: No Hx Substance Use: No - SURGICAL HISTORY Hx Surgeries: Yes Other/Comment: 2000 arthroscopic knee surgery - ANESTHESIA Hx Anesthesia: Yes Hx Anesthesia Reactions: No Hx Malignant Hyperthermia: No Meds Allergies/Adverse Reactions: Allergies Allergy/AdvReac Type Severity Reaction Status Date / Time No Known Allergies Allergy Verified 08/08/16 18:05 - Medications Medications: Current Medications Acetaminophen (Tylenol 325mg Tab) 650 mg PO Q6 PRN PRN Reason: Pain, moderate (4-7) Last Admin: 08/22/16 06:34 Dose: 650 mg Albuterol/Ipratropium (Duoneb 3 Mg/0.5 Mg (3 Ml) Ud) 3 ml INH RTID [facility] Last Admin: 08/22/16 08:00 Dose: 3 ml Amiodarone HCl (Cordarone) 200 mg PO DAILY [facility] Last Admin: 08/22/16 09:54 Dose: 200 mg Clotrimazole (Lotrimin 1% Cream) 1 applic TOP BID [facility] Last Admin: 08/22/16 09:56 Dose: 1 applic Furosemide (Lasix) 20 mg IVP Q12 [facility] Last Admin: 08/22/16 09:57 Dose: 20 mg Hydrocortisone (Cortizone 1% Cream) 1 applic TOP BID [facility] Last Admin: 08/22/16 09:58 Dose: 1 applic Cefazolin Sodium 1 gm/ Sodium (Chloride) 100 mls @ 100 mls/hr IVPB Q8 [facility] Last Admin: 08/22/16 09:53 Dose: 100 mls/hr Physical Exam - Constitutional Appears: No Acute Distress - ENT Exam ENT Exam: Mucous Membranes Moist - Respiratory Exam Respiratory Exam: Rales. absent: Chest Wall Tenderness - Cardiovascular Exam Cardiovascular Exam: absent: JVD, Rubs - GI/Abdominal Exam GI & Abdominal Exam: Distended, Guarding, Normal Bowel Sounds Additional comments: ascites - Extremities Exam Extremities exam: Positive for: pedal edema. Negative for: calf tenderness Additional comments: bilateral leg edema at least UP TO THE KNEES - Back Exam Back exam: absent: CVA tenderness (L), CVA tenderness (R) - Neurological Exam Neurological exam: Alert Results - Vital Signs Recent Vital Signs: Last Vital Signs Temp 98.6 F 08/22/16 08:00 Pulse 82 08/22/16 09:54 Resp 24 08/22/16 08:00 BP 100/48 L 08/22/16 09:57 Pulse Ox 95 08/22/16 08:00 - Labs Result Diagrams: 08/22/16 06:05 08/22/16 06:05 Labs: Laboratory Results - last 24 hr 08/22/16 08/22/16 06:05 06:05 WBC 10.1 RBC 2.72 L Hgb 9.6 L Hct 28.8 L MCV 105.7 H MCH 35.4 H MCHC 33.5 RDW 16.3 H Plt Count 101 L Sodium 138 Potassium 5.1 H Chloride 109 H Carbon Dioxide 23 Anion Gap 11 BUN 45 H Creatinine 1.6 H Est GFR ( Amer) 52 Est GFR (Non-Af Amer) 43 Random Glucose 68 L Calcium 7.6 L Total Bilirubin 2.5 H AST 57 ALT 23 Alkaline Phosphatase 97 Total Protein 7.5 Albumin 2.3 L Globulin 5.3 H Albumin/Globulin Ratio 0.4 L Assessment & Plan - Assessment and Plan (Free Text) Assessment: Patient admitted with severe mass effect leg edema as noted Patient has significant ascites Whether this related to kidney origin or liver disease or cardiac to be determined I order Spot urine for the ratio of protein to creatinine Also I suggested increase Lasix 40 mg twice a day To do CT scan of the abdomen and pelvis without intravenous contrast Continue monitoring with daily weight
--- NOTE | 2016-08-22 10:41 | CP.PCM.PN ---
Subjective - Date & Time of Evaluation Date of Evaluation: 08/22/16 Time of Evaluation: 09:30 - Subjective Subjective: NO CHEST PAIN BREATHING BETTER TODAY Objective - Vital Signs/Intake and Output Vital Signs (last 24 hours): Temp Pulse Resp BP Pulse Ox 98.6 F 82 24 100/48 L 95 08/22/16 08:00 08/22/16 09:54 08/22/16 08:00 08/22/16 09:57 08/22/16 08:00 - Medications Medications: Current Medications Acetaminophen (Tylenol 325mg Tab) 650 mg PO Q6 PRN PRN Reason: Pain, moderate (4-7) Last Admin: 08/22/16 06:34 Dose: 650 mg Albuterol/Ipratropium (Duoneb 3 Mg/0.5 Mg (3 Ml) Ud) 3 ml INH RTID [facility] Last Admin: 08/22/16 08:00 Dose: 3 ml Amiodarone HCl (Cordarone) 200 mg PO DAILY [facility] Last Admin: 08/22/16 09:54 Dose: 200 mg Clotrimazole (Lotrimin 1% Cream) 1 applic TOP BID [facility] Last Admin: 08/22/16 09:56 Dose: 1 applic Furosemide (Lasix) 20 mg IVP Q12 [facility] Last Admin: 08/22/16 09:57 Dose: 20 mg Hydrocortisone (Cortizone 1% Cream) 1 applic TOP BID [facility] Last Admin: 08/22/16 09:58 Dose: 1 applic Cefazolin Sodium 1 gm/ Sodium (Chloride) 100 mls @ 100 mls/hr IVPB Q8 [facility] Last Admin: 08/22/16 09:53 Dose: 100 mls/hr - Labs Labs: 08/22/16 06:05 08/22/16 06:05 PT 23.3 Seconds (9.8-13.1) H 08/19/16 17:50 INR 2.0 (0.9-1.2) H 08/19/16 17:50 APTT 42.2 Seconds (25.6-37.1) H 08/19/16 17:50 - Respiratory Exam Respiratory Exam: Clear to Ausculation Bilateral - Cardiovascular Exam Cardiovascular Exam: REGULAR RHYTHM, +S1, +S2 - Extremities Exam Extremities Exam: Pedal Edema Additional comments: REDNESS OF BOTH LOWER EXTREMITIES BELOW THE KNEES - Additional Findings Additional findings: LAYOUT FORMER NSR ID, RENAL AND PULMONARY NOTED REVIEWED Assessment and Plan - Assessment and Plan (Free Text) Assessment: BILATERAL LOWER EXTREMITY ERYSIPELAS S/P ATRIAL FIBRILLATION AORTIC SCLEROSIS WITHOUT STENOSIS AND GOOD LV SYSTOLIC FUNCTION HYPERTENSION HISTORY Plan: CONDTINUE IV ANTIBIOTICS INCREASE FUROSEMIDE TO 40 MGS IV BID PER NEPHROLOGY LEG
[2016-08-22] MEDS ORDERED: Albuterol HFA 90 mcg/actuation (8 g) INH PRN (10:45)
[2016-08-22 10:50] LABS: PHOSPHOROUS 4.6 mg/dl (2.5-4.5)
--- NOTE | 2016-08-22 11:19 | CP.PCM.PN ---
Subjective - Date & Time of Evaluation Date of Evaluation: 08/22/16 Time of Evaluation: 07:00 - Subjective Subjective: blood c/s do far neg cont iv rx cardio follow up Objective - Vital Signs/Intake and Output Vital Signs (last 24 hours): Temp Pulse Resp BP Pulse Ox 98.6 F 82 24 100/48 L 95 08/22/16 08:00 08/22/16 09:54 08/22/16 08:00 08/22/16 09:57 08/22/16 08:00 - Medications Medications: Current Medications Acetaminophen (Tylenol 325mg Tab) 650 mg PO Q6 PRN PRN Reason: Pain, moderate (4-7) Last Admin: 08/22/16 06:34 Dose: 650 mg Albuterol (Ventolin Hfa 90 Mcg/Actuation (8 G)) 1 puff INH RQ4 PRN PRN Reason: Shortness of Breath Albuterol/Ipratropium (Duoneb 3 Mg/0.5 Mg (3 Ml) Ud) 3 ml INH RTID [facility] Last Admin: 08/22/16 08:00 Dose: 3 ml Amiodarone HCl (Cordarone) 200 mg PO DAILY [facility] Last Admin: 08/22/16 09:54 Dose: 200 mg Clotrimazole (Lotrimin 1% Cream) 1 applic TOP BID [facility] Last Admin: 08/22/16 09:56 Dose: 1 applic Furosemide (Lasix) 40 mg IV BID [facility] Hydrocortisone (Cortizone 1% Cream) 1 applic TOP BID [facility] Last Admin: 08/22/16 09:58 Dose: 1 applic Cefazolin Sodium 1 gm/ Sodium (Chloride) 100 mls @ 100 mls/hr IVPB Q8 [facility] Last Admin: 08/22/16 09:53 Dose: 100 mls/hr - Labs Labs: 08/22/16 06:05 08/22/16 06:05 PT 23.3 Seconds (9.8-13.1) H 08/19/16 17:50 INR 2.0 (0.9-1.2) H 08/19/16 17:50 APTT 42.2 Seconds (25.6-37.1) H 08/19/16 17:50 - Constitutional Appears: Non-toxic, Chronically Ill - Head Exam Head Exam: NORMOCEPHALIC - Eye Exam Eye Exam: PERRL. absent: Scleral icterus - ENT Exam ENT Exam: Mucous Membranes Dry - Neck Exam Neck Exam: absent: Lymphadenopathy - Respiratory Exam Respiratory Exam: Decreased Breath Sounds - Cardiovascular Exam Cardiovascular Exam: REGULAR RHYTHM - GI/Abdominal Exam GI & Abdominal Exam: Distended Assessment and Plan (1) Cirrhosis of liver with ascites Status: Acute (2) Erysipelas of lower extremity Status: Acute (3) Leg edema Status: Acute
--- NOTE | 2016-08-22 12:17 | NM ---
COMPARISON: August 21, 2016. Single-view chest 08/08/2016 bilateral lower extremity duplex venous sonography. TECHNIQUE: 36.7 mCi technetium 99-m DTPA aerosol. 5.8 mCI technetium 99-m MAA administered intravenously. FINDINGS: VENTILATION COMPONENT: Normal. PERFUSION COMPONENT: Heterogeneous distribution of radionuclide. No geographic, segmental, lobar abnormalities apparent on the present examination. IMPRESSION: Low probability ventilation perfusion scan for pulmonary embolism.
[2016-08-22] MEDS ORDERED: Albuterol-Ipratrop 3 mg / 0.5 (3 ml) UD INH STA (12:40)
--- NOTE | 2016-08-22 14:15 | CP.PCM.PN ---
Subjective - Date & Time of Evaluation Date of Evaluation: 08/22/16 Time of Evaluation: 14:12 - Subjective Subjective: Patient a little SOB with movement. No new complaints. Objective - Vital Signs/Intake and Output Vital Signs (last 24 hours): Temp Pulse Resp BP Pulse Ox 97.4 F L 84 20 116/54 L 97 08/22/16 12:37 08/22/16 12:37 08/22/16 12:37 08/22/16 13:40 08/22/16 12:37 - Medications Medications: Current Medications Acetaminophen (Tylenol 325mg Tab) 650 mg PO Q6 PRN PRN Reason: Pain, moderate (4-7) Last Admin: 08/22/16 06:34 Dose: 650 mg Albuterol (Ventolin Hfa 90 Mcg/Actuation (8 G)) 1 puff INH RQ4 PRN PRN Reason: Shortness of Breath Albuterol/Ipratropium (Duoneb 3 Mg/0.5 Mg (3 Ml) Ud) 3 ml INH RTID [facility] Last Admin: 08/22/16 12:50 Dose: Not Given Amiodarone HCl (Cordarone) 200 mg PO DAILY [facility] Last Admin: 08/22/16 09:54 Dose: 200 mg Clotrimazole (Lotrimin 1% Cream) 1 applic TOP BID [facility] Last Admin: 08/22/16 09:56 Dose: 1 applic Furosemide (Lasix) 40 mg IV BID [facility] Last Admin: 08/22/16 13:40 Dose: 40 mg Hydrocortisone (Cortizone 1% Cream) 1 applic TOP BID [facility] Last Admin: 08/22/16 09:58 Dose: 1 applic Cefazolin Sodium 1 gm/ Sodium (Chloride) 100 mls @ 100 mls/hr IVPB Q8 [facility] Last Admin: 08/22/16 09:53 Dose: 100 mls/hr - Labs Labs: 08/22/16 06:05 08/22/16 06:05 PT 23.3 Seconds (9.8-13.1) H 08/19/16 17:50 INR 2.0 (0.9-1.2) H 08/19/16 17:50 APTT 42.2 Seconds (25.6-37.1) H 08/19/16 17:50 - Head Exam Head Exam: ATRAUMATIC - Eye Exam Eye Exam: Normal appearance - ENT Exam ENT Exam: Normal Exam - Neck Exam Neck Exam: Full ROM - Respiratory Exam Respiratory Exam: Clear to Ausculation Bilateral - Cardiovascular Exam Cardiovascular Exam: REGULAR RHYTHM - GI/Abdominal Exam GI & Abdominal Exam: Distended. absent: Tenderness Assessment and Plan (1) Cirrhosis of liver with ascites Assessment & Plan: Patient understands need to see liver specialist to evaluate possible liver transplant. BUN up to 45 today and patient being seen by nephrology. Status: Acute
[2016-08-22] MEDS ORDERED: Mupirocin 2% Cream TOP SCH (17:00)
[2016-08-22 19:51] LABS: RBC URINE 6 /hpf (0-3); URINE BACTERIA RARE (<OCC); URINE BILIRUBIN NEGATIVE (NEGATIVE); URINE BLOOD MODERATE (NEGATIVE); URINE COLOR YELLOW (YELLOW); URINE GLUCOSE (UA) NEG (Normal); URINE KETONE NEGATIVE (NEGATIVE); URINE LEUKOCYTE ESTERASE NEG Leu/uL (Negative); URINE PROTEIN NEGATIVE (NEGATIVE); URINE UROBILINOGEN 0.2-1.0 mg/dL (0.2-1.0); WBC URINE 2 /hpf (0-5)
--- NOTE | 2016-08-22 21:12 | CP.PCM.PN ---
Subjective - Date & Time of Evaluation Date of Evaluation: 08/22/16 Time of Evaluation: 22:22 - Subjective Subjective: Above noted Objective - Vital Signs/Intake and Output Vital Signs (last 24 hours): Temp Pulse Resp BP Pulse Ox 98.1 F 86 20 111/56 L 100 08/22/16 19:20 08/22/16 19:20 08/22/16 19:20 08/22/16 19:20 08/22/16 19:20 Intake and Output: 08/22/16 08/23/16 18:59 06:59 Intake Total 1040 Output Total 620 Balance 420 - Medications Medications: Current Medications Acetaminophen (Tylenol 325mg Tab) 650 mg PO Q6 PRN PRN Reason: Pain, moderate (4-7) Last Admin: 08/22/16 06:34 Dose: 650 mg Albuterol (Ventolin Hfa 90 Mcg/Actuation (8 G)) 1 puff INH RQ4 PRN PRN Reason: Shortness of Breath Albuterol/Ipratropium (Duoneb 3 Mg/0.5 Mg (3 Ml) Ud) 3 ml INH RTID [facility] Last Admin: 08/22/16 19:49 Dose: 3 ml Amiodarone HCl (Cordarone) 200 mg PO DAILY [facility] Last Admin: 08/22/16 09:54 Dose: 200 mg Clotrimazole (Lotrimin 1% Cream) 1 applic TOP BID [facility] Last Admin: 08/22/16 17:26 Dose: 1 applic Furosemide (Lasix) 40 mg IV BID [facility] Last Admin: 08/22/16 17:26 Dose: 40 mg Hydrocortisone (Cortizone 1% Cream) 1 applic TOP BID [facility] Last Admin: 08/22/16 17:25 Dose: 1 applic Cefazolin Sodium 1 gm/ Sodium (Chloride) 100 mls @ 100 mls/hr IVPB Q8 [facility] Last Admin: 08/22/16 17:18 Dose: 100 mls/hr Mupirocin (Bactroban Ointment) 1 applic TOP BID [facility] Last Admin: 08/22/16 18:06 Dose: 1 applic - Labs Labs: 08/22/16 06:05 08/22/16 06:05 PT 23.3 Seconds (9.8-13.1) H 08/19/16 17:50 INR 2.0 (0.9-1.2) H 08/19/16 17:50 APTT 42.2 Seconds (25.6-37.1) H 08/19/16 17:50 - Respiratory Exam Respiratory Exam: NORMAL BREATHING PATTERN - Cardiovascular Exam Cardiovascular Exam: REGULAR RHYTHM - GI/Abdominal Exam GI & Abdominal Exam: Normal Bowel Sounds Assessment and Plan - Assessment and Plan (Free Text) Assessment: Lower extremity edema with cellulitis Cefazolin ID COPD?? SOB? Duoneb CXR Lung pefusion scan Pulmonary consult appreciated Cirrhosis Hepatosplenomegaly Portal HTN ascites etiol?? Pancytopenia Low prot/alb s/p paracentesis last admission Lasix Albumin ?? Aldactone CKD? Hepatorenal? GI Nephrology Liver transplant? Low back pain etiol? improved Physiatry consult A-fib/ rate controlled Amiodorone INR 2.0 Cardiology
[2016-08-23] MEDS: ceFAZolin 1 GM in Sodium Chloride 0.9% 100 ML IVPB SCH ×3 (01:01→17:20)
[2016-08-23] MEDS: Albuterol-Ipratrop 3 mg / 0.5 (3 ml) UD INH SCH ×4 (09:00→20:29)
[2016-08-23] MEDS ORDERED: Silver Sulfadiazine 1% Cream (20 gm) TOP SCH (09:00)
[2016-08-23 09:51] LABS: ALB/GLOB RATIO 0.4 (1.0-2.1); BILIRUBIN,TOTAL 2.9 mg/dl (0.2-1.3); CALCIUM 7.7 mg/dL (8.4-10.2); POTASSIUM 5.1 MMOL/L (3.6-5.0); TOTAL PROTEIN 7.9 G/DL (6.3-8.2)
--- NOTE | 2016-08-23 10:06 | CP.PCM.PN ---
Subjective - Date & Time of Evaluation Date of Evaluation: 08/23/16 Time of Evaluation: 09:00 - Subjective Subjective: NO CHEST PAIN BREATHING BETTER Objective - Vital Signs/Intake and Output Vital Signs (last 24 hours): Temp Pulse Resp BP Pulse Ox 97.9 F 89 18 129/55 L 98 08/23/16 07:55 08/23/16 09:24 08/23/16 07:55 08/23/16 09:24 08/23/16 07:55 - Medications Medications: Current Medications Acetaminophen (Tylenol 325mg Tab) 650 mg PO Q6 PRN PRN Reason: Pain, moderate (4-7) Last Admin: 08/22/16 06:34 Dose: 650 mg Albuterol (Ventolin Hfa 90 Mcg/Actuation (8 G)) 1 puff INH RQ4 PRN PRN Reason: Shortness of Breath Albuterol/Ipratropium (Duoneb 3 Mg/0.5 Mg (3 Ml) Ud) 3 ml INH RTID [facility] Last Admin: 08/23/16 09:00 Dose: 3 ml Amiodarone HCl (Cordarone) 200 mg PO DAILY [facility] Last Admin: 08/23/16 09:24 Dose: 200 mg Clotrimazole (Lotrimin 1% Cream) 1 applic TOP BID [facility] Last Admin: 08/23/16 09:28 Dose: 1 applic Furosemide (Lasix) 40 mg IV BID [facility] Last Admin: 08/23/16 09:23 Dose: 40 mg Hydrocortisone (Cortizone 1% Cream) 1 applic TOP BID [facility] Last Admin: 08/23/16 09:28 Dose: 1 applic Cefazolin Sodium 1 gm/ Sodium (Chloride) 100 mls @ 100 mls/hr IVPB Q8 [facility] Last Admin: 08/23/16 09:25 Dose: 100 mls/hr Mupirocin (Bactroban Ointment) 1 applic TOP BID [facility] Last Admin: 08/23/16 09:28 Dose: 1 applic - Labs Labs: 08/22/16 06:05 08/23/16 09:23 PT 23.3 Seconds (9.8-13.1) H 08/19/16 17:50 INR 2.0 (0.9-1.2) H 08/19/16 17:50 APTT 42.2 Seconds (25.6-37.1) H 08/19/16 17:50 - Respiratory Exam Respiratory Exam: Clear to Ausculation Bilateral - Cardiovascular Exam Cardiovascular Exam: REGULAR RHYTHM, +S1, +S2, Murmur - Extremities Exam Extremities Exam: Pedal Edema Additional comments: REDNESS PERSISTS IN LE - Skin Additional comments: PINKISH RASH IS NOW PRESENT OVER THE ABDOMEN - Additional Findings Additional findings: EXHIBIT CLEANER NSR LUNG SCAN NORMAL Assessment and Plan - Assessment and Plan (Free Text) Assessment: S/P ATRIAL FIBRILLATION-NOW IN NSR CIRRHOSIS OF THE LIVER BILATERAL LE CELLULITIS Plan: CONTINUE AMIODARONE, IV ANTIBIOTICS, FUROSEMIDE
--- NOTE | 2016-08-23 10:14 | CP.PCM.PN ---
Subjective - Date & Time of Evaluation Date of Evaluation: 08/23/16 Time of Evaluation: 10:12 - Subjective Subjective: 71 y/o male seen bedside for bilateral leg swelling and redness. Pt is in NAD and is AAOx3. Pt denies of any pain to his legs. Pt denies of any overnight events. Pt denies of any F/N/V/C/SOB. Pt's dressing remain clean, dry and intact. Objective - Vital Signs/Intake and Output Vital Signs (last 24 hours): Temp Pulse Resp BP Pulse Ox 97.9 F 89 18 129/55 L 98 08/23/16 07:55 08/23/16 09:24 08/23/16 07:55 08/23/16 09:24 08/23/16 07:55 - Medications Medications: Current Medications Acetaminophen (Tylenol 325mg Tab) 650 mg PO Q6 PRN PRN Reason: Pain, moderate (4-7) Last Admin: 08/22/16 06:34 Dose: 650 mg Albuterol (Ventolin Hfa 90 Mcg/Actuation (8 G)) 1 puff INH RQ4 PRN PRN Reason: Shortness of Breath Albuterol/Ipratropium (Duoneb 3 Mg/0.5 Mg (3 Ml) Ud) 3 ml INH RTID [facility] Last Admin: 08/23/16 09:00 Dose: 3 ml Amiodarone HCl (Cordarone) 200 mg PO DAILY [facility] Last Admin: 08/23/16 09:24 Dose: 200 mg Clotrimazole (Lotrimin 1% Cream) 1 applic TOP BID [facility] Last Admin: 08/23/16 09:28 Dose: 1 applic Furosemide (Lasix) 40 mg IV BID [facility] Last Admin: 08/23/16 09:23 Dose: 40 mg Hydrocortisone (Cortizone 1% Cream) 1 applic TOP BID [facility] Last Admin: 08/23/16 09:28 Dose: 1 applic Cefazolin Sodium 1 gm/ Sodium (Chloride) 100 mls @ 100 mls/hr IVPB Q8 [facility] Last Admin: 08/23/16 09:25 Dose: 100 mls/hr Mupirocin (Bactroban Ointment) 1 applic TOP BID [facility] Last Admin: 08/23/16 09:28 Dose: 1 applic - Labs Labs: 08/22/16 06:05 08/23/16 09:23 PT 23.3 Seconds (9.8-13.1) H 08/19/16 17:50 INR 2.0 (0.9-1.2) H 08/19/16 17:50 APTT 42.2 Seconds (25.6-37.1) H 08/19/16 17:50 - Constitutional Appears: Well, Non-toxic, No Acute Distress - Extremities Exam Additional comments: VASC: DP/PT: 2/4 b/l, 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 - Neurological Exam Neurological Exam: Alert, Altered, Oriented x3 Assessment and Plan - Assessment and Plan (Free Text) Assessment: 71 y/o male with bilateral leg cellulitis seen bedside Plan: Pt evaluated and chart reviewed Discussed with attending Dr. Olivo Legs dressed with bactroban, hydrocortisone, DSD and NABIL bilaterally Pt to continue IV abx as per ID Podiatry to follow daily
--- NOTE | 2016-08-23 10:24 | CP.PCM.PN ---
Subjective - Date & Time of Evaluation Date of Evaluation: 08/23/16 Time of Evaluation: 10:22 - Subjective Subjective: Patient is out of bed sitting up at the bedside Complaining of some shortness of breath leg edema with no significant changes. Physical exam Chest few rhonchi Heart no rubs Abdomen ascites Extremity 2+ edema and the leg are wrapped with dressing Impression and plan Kidney function remained about the same stable Increase Lasix 40 mg twice a day intravenously Daily weight Patient has liver cirrhosis with abnormal liver function and high total bilirubin as discussed with the dry roller patient receiving albumin IV. Objective - Vital Signs/Intake and Output Vital Signs (last 24 hours): Temp Pulse Resp BP Pulse Ox 97.9 F 89 18 129/55 L 98 08/23/16 07:55 08/23/16 09:24 08/23/16 07:55 08/23/16 09:24 08/23/16 07:55 - Medications Medications: Current Medications Acetaminophen (Tylenol 325mg Tab) 650 mg PO Q6 PRN PRN Reason: Pain, moderate (4-7) Last Admin: 08/22/16 06:34 Dose: 650 mg Albuterol (Ventolin Hfa 90 Mcg/Actuation (8 G)) 1 puff INH RQ4 PRN PRN Reason: Shortness of Breath Albuterol/Ipratropium (Duoneb 3 Mg/0.5 Mg (3 Ml) Ud) 3 ml INH RTID [facility] Last Admin: 08/23/16 09:00 Dose: 3 ml Amiodarone HCl (Cordarone) 200 mg PO DAILY [facility] Last Admin: 08/23/16 09:24 Dose: 200 mg Clotrimazole (Lotrimin 1% Cream) 1 applic TOP BID [facility] Last Admin: 08/23/16 09:28 Dose: 1 applic Furosemide (Lasix) 40 mg IV BID [facility] Last Admin: 08/23/16 09:23 Dose: 40 mg Hydrocortisone (Cortizone 1% Cream) 1 applic TOP BID [facility] Last Admin: 08/23/16 09:28 Dose: 1 applic Cefazolin Sodium 1 gm/ Sodium (Chloride) 100 mls @ 100 mls/hr IVPB Q8 [facility] Last Admin: 08/23/16 09:25 Dose: 100 mls/hr Mupirocin (Bactroban Ointment) 1 applic TOP BID [facility] Last Admin: 08/23/16 09:28 Dose: 1 applic - Labs Labs: 08/22/16 06:05 08/23/16 09:23 PT 23.3 Seconds (9.8-13.1) H 08/19/16 17:50 INR 2.0 (0.9-1.2) H 08/19/16 17:50 APTT 42.2 Seconds (25.6-37.1) H 08/19/16 17:50
--- NOTE | 2016-08-23 11:12 | CP.PCM.PN ---
Subjective - Date & Time of Evaluation Date of Evaluation: 08/23/16 Time of Evaluation: 11:07 - Subjective Subjective: Seen on rounds in the telemetry unit. Case discussed with gastroenterology this morning Lying in bed currently receiving inhalation therapy. Vital signs have remained stable and the patient is well oxygenated. Dependent edema appears slightly improved from the day before. Erythema persists. Erythematous maculopapular rash across the abdomen is also noted today. Breath sounds are well heard bilaterally without rales or rhonchi. No bronchial breathing or egophony. No audible wheezing. SPO2 has remained steady without any positional desaturations. Dyspnea most likely related to tense abdominal ascites and generalized edema. Clinically no evidence to suggest hepatopulmonary syndrome. Objective - Vital Signs/Intake and Output Vital Signs (last 24 hours): Temp Pulse Resp BP Pulse Ox 97.9 F 89 18 129/55 L 98 08/23/16 07:55 08/23/16 09:24 08/23/16 07:55 08/23/16 09:24 08/23/16 07:55 Intake and Output: 08/22/16 08/23/16 23:59 11:59 Intake Total 1040 Output Total 620 Balance 420 - Medications Medications: Current Medications Acetaminophen (Tylenol 325mg Tab) 650 mg PO Q6 PRN PRN Reason: Pain, moderate (4-7) Last Admin: 08/22/16 06:34 Dose: 650 mg Albuterol (Ventolin Hfa 90 Mcg/Actuation (8 G)) 1 puff INH RQ4 PRN PRN Reason: Shortness of Breath Albuterol/Ipratropium (Duoneb 3 Mg/0.5 Mg (3 Ml) Ud) 3 ml INH RTID [facility] Last Admin: 08/23/16 09:00 Dose: 3 ml Amiodarone HCl (Cordarone) 200 mg PO DAILY [facility] Last Admin: 08/23/16 09:24 Dose: 200 mg Clotrimazole (Lotrimin 1% Cream) 1 applic TOP BID [facility] Last Admin: 08/23/16 09:28 Dose: 1 applic Furosemide (Lasix) 40 mg IV BID [facility] Last Admin: 08/23/16 09:23 Dose: 40 mg Hydrocortisone (Cortizone 1% Cream) 1 applic TOP BID [facility] Last Admin: 08/23/16 09:28 Dose: 1 applic Cefazolin Sodium 1 gm/ Sodium (Chloride) 100 mls @ 100 mls/hr IVPB Q8 [facility] Last Admin: 08/23/16 09:25 Dose: 100 mls/hr Mupirocin (Bactroban Ointment) 1 applic TOP BID [facility] Last Admin: 08/23/16 09:28 Dose: 1 applic - Labs Labs: 08/22/16 06:05 08/23/16 09:23 PT 23.3 Seconds (9.8-13.1) H 08/19/16 17:50 INR 2.0 (0.9-1.2) H 08/19/16 17:50 APTT 42.2 Seconds (25.6-37.1) H 08/19/16 17:50 Assessment and Plan (1) Wheezing symptom Status: Acute
--- NOTE | 2016-08-23 21:13 | CP.PCM.PN ---
Subjective - Date & Time of Evaluation Date of Evaluation: 08/23/16 Time of Evaluation: 22:22 - Subjective Subjective: Above noted Still with occasional SOB wheezing Objective - Vital Signs/Intake and Output Vital Signs (last 24 hours): Temp Pulse Resp BP Pulse Ox 98.1 F 81 20 116/51 L 100 08/23/16 19:22 08/23/16 19:22 08/23/16 19:22 08/23/16 19:22 08/23/16 19:22 Intake and Output: 08/23/16 08/24/16 18:59 06:59 Intake Total 940 Output Total 360 Balance 580 - Medications Medications: Current Medications Acetaminophen (Tylenol 325mg Tab) 650 mg PO Q6 PRN PRN Reason: Pain, moderate (4-7) Last Admin: 08/22/16 06:34 Dose: 650 mg Albuterol (Ventolin Hfa 90 Mcg/Actuation (8 G)) 1 puff INH RQ4 PRN PRN Reason: Shortness of Breath Albuterol/Ipratropium (Duoneb 3 Mg/0.5 Mg (3 Ml) Ud) 3 ml INH RTID [facility] Last Admin: 08/23/16 20:29 Dose: 3 ml Amiodarone HCl (Cordarone) 200 mg PO DAILY [facility] Last Admin: 08/23/16 09:24 Dose: 200 mg Clotrimazole (Lotrimin 1% Cream) 1 applic TOP BID [facility] Last Admin: 08/23/16 17:23 Dose: 1 applic Furosemide (Lasix) 40 mg IV BID [facility] Last Admin: 08/23/16 17:22 Dose: 40 mg Hydrocortisone (Cortizone 1% Cream) 1 applic TOP BID [facility] Last Admin: 08/23/16 17:23 Dose: 1 applic Cefazolin Sodium 1 gm/ Sodium (Chloride) 100 mls @ 100 mls/hr IVPB Q8 [facility] Last Admin: 08/23/16 17:20 Dose: 100 mls/hr Mupirocin (Bactroban Ointment) 1 applic TOP BID [facility] Last Admin: 08/23/16 17:23 Dose: 1 applic - Labs Labs: 08/22/16 06:05 08/23/16 09:23 PT 23.3 Seconds (9.8-13.1) H 08/19/16 17:50 INR 2.0 (0.9-1.2) H 08/19/16 17:50 APTT 42.2 Seconds (25.6-37.1) H 08/19/16 17:50 - Respiratory Exam Respiratory Exam: NORMAL BREATHING PATTERN - Cardiovascular Exam Cardiovascular Exam: REGULAR RHYTHM - GI/Abdominal Exam GI & Abdominal Exam: Normal Bowel Sounds Assessment and Plan - Assessment and Plan (Free Text) Assessment: Lower extremity edema with erythema Leg elevation Lasix Cefazolin ID SOB? 2 to ascites Duoneb CXR Lung pefusion scan (low probability) Pulmonary consult appreciated Cirrhosis Hepatosplenomegaly Portal HTN ascites etiol?? Pancytopenia Low prot/alb s/p paracentesis last admission Lasix Albumin ?? Aldactone CKD? Hepatorenal? GI Nephrology Liver transplant? Low back pain etiol? improved Physiatry consult A-fib/ rate controlled Amiodorone INR 2.0 Cardiology
--- NOTE | 2016-08-24 00:02 | CP.PCM.PN ---
Subjective - Date & Time of Evaluation Date of Evaluation: 08/23/16 Time of Evaluation: 23:59 - Subjective Subjective: Patient with some SOB with exertion . Otherwise about the same. Objective - Vital Signs/Intake and Output Vital Signs (last 24 hours): Temp Pulse Resp BP Pulse Ox 99.8 F H 104 H 19 115/74 94 L 08/23/16 23:48 08/23/16 23:48 08/23/16 23:48 08/23/16 23:48 08/23/16 23:48 Intake and Output: 08/23/16 08/24/16 18:59 06:59 Intake Total 940 Output Total 360 Balance 580 - Medications Medications: Current Medications Acetaminophen (Tylenol 325mg Tab) 650 mg PO Q6 PRN PRN Reason: Pain, moderate (4-7) Last Admin: 08/22/16 06:34 Dose: 650 mg Albuterol (Ventolin Hfa 90 Mcg/Actuation (8 G)) 1 puff INH RQ4 PRN PRN Reason: Shortness of Breath Albuterol/Ipratropium (Duoneb 3 Mg/0.5 Mg (3 Ml) Ud) 3 ml INH RTID [facility] Last Admin: 08/23/16 20:29 Dose: 3 ml Amiodarone HCl (Cordarone) 200 mg PO DAILY [facility] Last Admin: 08/23/16 09:24 Dose: 200 mg Clotrimazole (Lotrimin 1% Cream) 1 applic TOP BID [facility] Last Admin: 08/23/16 17:23 Dose: 1 applic Furosemide (Lasix) 40 mg IV BID [facility] Last Admin: 08/23/16 17:22 Dose: 40 mg Hydrocortisone (Cortizone 1% Cream) 1 applic TOP BID [facility] Last Admin: 08/23/16 17:23 Dose: 1 applic Cefazolin Sodium 1 gm/ Sodium (Chloride) 100 mls @ 100 mls/hr IVPB Q8 [facility] Last Admin: 08/23/16 17:20 Dose: 100 mls/hr Mupirocin (Bactroban Ointment) 1 applic TOP BID [facility] Last Admin: 08/23/16 17:23 Dose: 1 applic - Labs Labs: 08/22/16 06:05 08/23/16 09:23 PT 23.3 Seconds (9.8-13.1) H 08/19/16 17:50 INR 2.0 (0.9-1.2) H 08/19/16 17:50 APTT 42.2 Seconds (25.6-37.1) H 08/19/16 17:50 - Head Exam Head Exam: ATRAUMATIC - Eye Exam Eye Exam: Normal appearance Pupil Exam: NORMAL ACCOMODATION - ENT Exam ENT Exam: Normal Exam - Neck Exam Neck Exam: Full ROM - Respiratory Exam Respiratory Exam: Clear to Ausculation Bilateral - Cardiovascular Exam Cardiovascular Exam: REGULAR RHYTHM, +S1, +S2 - GI/Abdominal Exam GI & Abdominal Exam: Distended, Soft Assessment and Plan (1) Cirrhosis of liver with ascites Assessment & Plan: ongoing ascites. Renal functioning today same as yesterday. Continue current management. Referral when discharged to liver center Status: Acute
[2016-08-24] MEDS: ceFAZolin 1 GM in Sodium Chloride 0.9% 100 ML IVPB SCH ×3 (00:05→16:50)
[2016-08-24 05:20] LABS: HEMATOCRIT 26.7 % (35.0-51.0); MEAN CELL VOLUME 105.7 fl (80.0-94.0); MEAN CORPUSCULAR HEMOGLOBIN 35.6 pg (27.0-31.0); MEAN CORPUSCULAR HGB CONC 33.7 g/dL (33.0-37.0); RED CELL DISTRIBUTION WIDTH 16.4 % (11.5-14.5); WHITE BLOOD COUNT 10.9 K/uL (4.8-10.8)
[2016-08-24 05:34] LABS: ALB/GLOB RATIO 0.4 (1.0-2.1); BILIRUBIN,TOTAL 2.3 mg/dl (0.2-1.3); CALCIUM 7.5 mg/dL (8.4-10.2); POTASSIUM 4.6 MMOL/L (3.6-5.0); TOTAL PROTEIN 7.5 G/DL (6.3-8.2)
[2016-08-24] MEDS: Albuterol-Ipratrop 3 mg / 0.5 (3 ml) UD INH SCH ×3 (08:00→19:07)
--- NOTE | 2016-08-24 09:14 | CP.PCM.PN ---
Subjective - Date & Time of Evaluation Date of Evaluation: 08/24/16 Time of Evaluation: 09:11 - Subjective Subjective: 71 y/o male seen bedside for bilateral leg swelling and vasculitis. Pt is in NAD and is AAOx3. Pt denies of any pain to his legs. Pt denies of any overnight events. Pt denies of any F/N/V/C/SOB. Patient states that he has been having nose bleeds from the oxygen mask. Pt's dressing remain clean, dry and intact. Objective - Vital Signs/Intake and Output Vital Signs (last 24 hours): Temp Pulse Resp BP Pulse Ox 97.8 F 83 20 117/46 L 97 08/24/16 08:09 08/24/16 09:00 08/24/16 08:09 08/24/16 09:00 08/24/16 08:09 - Medications Medications: Current Medications Acetaminophen (Tylenol 325mg Tab) 650 mg PO Q6 PRN PRN Reason: Pain, moderate (4-7) Last Admin: 08/22/16 06:34 Dose: 650 mg Albuterol (Ventolin Hfa 90 Mcg/Actuation (8 G)) 1 puff INH RQ4 PRN PRN Reason: Shortness of Breath Albuterol/Ipratropium (Duoneb 3 Mg/0.5 Mg (3 Ml) Ud) 3 ml INH RTID [facility] Last Admin: 08/24/16 08:00 Dose: 3 ml Amiodarone HCl (Cordarone) 200 mg PO DAILY [facility] Last Admin: 08/24/16 09:00 Dose: 200 mg Clotrimazole (Lotrimin 1% Cream) 1 applic TOP BID [facility] Last Admin: 08/24/16 09:01 Dose: 1 applic Furosemide (Lasix) 40 mg IV BID [facility] Last Admin: 08/24/16 08:59 Dose: 40 mg Hydrocortisone (Cortizone 1% Cream) 1 applic TOP BID [facility] Last Admin: 08/24/16 09:02 Dose: 1 applic Cefazolin Sodium 1 gm/ Sodium (Chloride) 100 mls @ 100 mls/hr IVPB Q8 [facility] Last Admin: 08/24/16 08:59 Dose: 100 mls/hr Mupirocin (Bactroban Ointment) 1 applic TOP BID [facility] Last Admin: 08/24/16 09:00 Dose: 1 applic - Labs Labs: 08/24/16 04:10 08/24/16 04:10 PT 23.3 Seconds (9.8-13.1) H 08/19/16 17:50 INR 2.0 (0.9-1.2) H 08/19/16 17:50 APTT 42.2 Seconds (25.6-37.1) H 08/19/16 17:50 - Constitutional Appears: Well, Non-toxic, No Acute Distress - Extremities Exam Additional comments: VASC: DP/PT: 2/4 b/l, 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 - Neurological Exam Neurological Exam: Alert, Awake, Oriented x3 - Psychiatric Exam Psychiatric exam: Normal Affect, Normal Mood Assessment and Plan - Assessment and Plan (Free Text) Assessment: 71 y/o male seen at bedside with bilateral leg edema and vasculitis Plan: Pt evaluated and chart reviewed Discussed with attending Dr. Clemens Legs dressed with bactroban, hydrocortisone, DSD and NABIL bilaterally Pt to continue IV abx as per ID Podiatry to follow daily
--- NOTE | 2016-08-24 10:40 | CP.PCM.PN ---
Subjective - Date & Time of Evaluation Date of Evaluation: 08/24/16 Time of Evaluation: 10:37 - Subjective Subjective: No overnight event reported Patient out of bed Urine output noted to be around 360 mL. No daily weight reported at this is a correct urine output patient is not responding to the Lasix Urine test noted that there is no proteinuria therefore his ascites and massive edema he has related to his liver cirrhosis most likely and not to nephrotic syndrome. Impression and plan Remained to have severe ascites with leg edema not responding to Lasix well suggest to add Zaroxolyn 5 mg daily and monitor electrolyte Please record daily weight. CK D stage III about the same. Patient has anemia which worked out including serum ion among other things Objective - Vital Signs/Intake and Output Vital Signs (last 24 hours): Temp Pulse Resp BP Pulse Ox 97.8 F 83 20 117/46 L 97 08/24/16 08:09 08/24/16 09:00 08/24/16 08:09 08/24/16 09:00 08/24/16 08:09 - Medications Medications: Current Medications Acetaminophen (Tylenol 325mg Tab) 650 mg PO Q6 PRN PRN Reason: Pain, moderate (4-7) Last Admin: 08/22/16 06:34 Dose: 650 mg Albuterol (Ventolin Hfa 90 Mcg/Actuation (8 G)) 1 puff INH RQ4 PRN PRN Reason: Shortness of Breath Albuterol/Ipratropium (Duoneb 3 Mg/0.5 Mg (3 Ml) Ud) 3 ml INH RTID [facility] Last Admin: 08/24/16 08:00 Dose: 3 ml Amiodarone HCl (Cordarone) 200 mg PO DAILY [facility] Last Admin: 08/24/16 09:00 Dose: 200 mg Clotrimazole (Lotrimin 1% Cream) 1 applic TOP BID [facility] Last Admin: 08/24/16 09:01 Dose: 1 applic Furosemide (Lasix) 40 mg IV BID [facility] Last Admin: 08/24/16 08:59 Dose: 40 mg Hydrocortisone (Cortizone 1% Cream) 1 applic TOP BID [facility] Last Admin: 08/24/16 09:02 Dose: 1 applic Cefazolin Sodium 1 gm/ Sodium (Chloride) 100 mls @ 100 mls/hr IVPB Q8 [facility] Last Admin: 08/24/16 08:59 Dose: 100 mls/hr Mupirocin (Bactroban Ointment) 1 applic TOP BID [facility] Last Admin: 08/24/16 09:00 Dose: 1 applic - Labs Labs: 08/24/16 04:10 08/24/16 04:10 PT 23.3 Seconds (9.8-13.1) H 08/19/16 17:50 INR 2.0 (0.9-1.2) H 08/19/16 17:50 APTT 42.2 Seconds (25.6-37.1) H 08/19/16 17:50 - Constitutional Appears: No Acute Distress - ENT Exam ENT Exam: Mucous Membranes Moist - Respiratory Exam Respiratory Exam: absent: Chest Wall Tenderness - Cardiovascular Exam Cardiovascular Exam: absent: Rubs - GI/Abdominal Exam GI & Abdominal Exam: Guarding, Normal Bowel Sounds - Extremities Exam Extremities Exam: Pedal Edema - Back Exam Back Exam: absent: CVA tenderness (L), CVA tenderness (R) - Neurological Exam Neurological Exam: Alert
--- NOTE | 2016-08-24 10:44 | CP.PCM.PN ---
Objective - Vital Signs/Intake and Output Vital Signs (last 24 hours): Temp Pulse Resp BP Pulse Ox 97.8 F 83 20 117/46 L 97 08/24/16 08:09 08/24/16 09:00 08/24/16 08:09 08/24/16 09:00 08/24/16 08:09 - Medications Medications: Current Medications Acetaminophen (Tylenol 325mg Tab) 650 mg PO Q6 PRN PRN Reason: Pain, moderate (4-7) Last Admin: 08/22/16 06:34 Dose: 650 mg Albuterol (Ventolin Hfa 90 Mcg/Actuation (8 G)) 1 puff INH RQ4 PRN PRN Reason: Shortness of Breath Albuterol/Ipratropium (Duoneb 3 Mg/0.5 Mg (3 Ml) Ud) 3 ml INH RTID [facility] Last Admin: 08/24/16 08:00 Dose: 3 ml Amiodarone HCl (Cordarone) 200 mg PO DAILY [facility] Last Admin: 08/24/16 09:00 Dose: 200 mg Clotrimazole (Lotrimin 1% Cream) 1 applic TOP BID [facility] Last Admin: 08/24/16 09:01 Dose: 1 applic Furosemide (Lasix) 40 mg IV BID [facility] Last Admin: 08/24/16 08:59 Dose: 40 mg Hydrocortisone (Cortizone 1% Cream) 1 applic TOP BID [facility] Last Admin: 08/24/16 09:02 Dose: 1 applic Cefazolin Sodium 1 gm/ Sodium (Chloride) 100 mls @ 100 mls/hr IVPB Q8 [facility] Last Admin: 08/24/16 08:59 Dose: 100 mls/hr Mupirocin (Bactroban Ointment) 1 applic TOP BID [facility] Last Admin: 08/24/16 09:00 Dose: 1 applic - Labs Labs: 08/24/16 04:10 08/24/16 04:10 PT 23.3 Seconds (9.8-13.1) H 08/19/16 17:50 INR 2.0 (0.9-1.2) H 08/19/16 17:50 APTT 42.2 Seconds (25.6-37.1) H 08/19/16 17:50
--- NOTE | 2016-08-24 13:47 | CP.PCM.PN ---
Subjective - Date & Time of Evaluation Date of Evaluation: 08/24/16 Time of Evaluation: 09:30 - Subjective Subjective: NO CHEST PAIN BREATHING BETTER Objective - Vital Signs/Intake and Output Vital Signs (last 24 hours): Temp Pulse Resp BP Pulse Ox 97.4 F L 86 18 133/50 L 99 08/24/16 12:28 08/24/16 12:28 08/24/16 12:28 08/24/16 12:28 08/24/16 12:28 - Medications Medications: Current Medications Acetaminophen (Tylenol 325mg Tab) 650 mg PO Q6 PRN PRN Reason: Pain, moderate (4-7) Last Admin: 08/22/16 06:34 Dose: 650 mg Albuterol (Ventolin Hfa 90 Mcg/Actuation (8 G)) 1 puff INH RQ4 PRN PRN Reason: Shortness of Breath Albuterol/Ipratropium (Duoneb 3 Mg/0.5 Mg (3 Ml) Ud) 3 ml INH RTID [facility] Last Admin: 08/24/16 08:00 Dose: 3 ml Amiodarone HCl (Cordarone) 200 mg PO DAILY [facility] Last Admin: 08/24/16 09:00 Dose: 200 mg Clotrimazole (Lotrimin 1% Cream) 1 applic TOP BID [facility] Last Admin: 08/24/16 09:01 Dose: 1 applic Furosemide (Lasix) 40 mg IV BID [facility] Last Admin: 08/24/16 08:59 Dose: 40 mg Hydrocortisone (Cortizone 1% Cream) 1 applic TOP BID [facility] Last Admin: 08/24/16 09:02 Dose: 1 applic Cefazolin Sodium 1 gm/ Sodium (Chloride) 100 mls @ 100 mls/hr IVPB Q8 [facility] Last Admin: 08/24/16 08:59 Dose: 100 mls/hr Lidocaine (Lidoderm) 1 ea TD DAILY [facility] Mupirocin (Bactroban Ointment) 1 applic TOP BID [facility] Last Admin: 08/24/16 09:00 Dose: 1 applic - Labs Labs: 08/24/16 04:10 08/24/16 04:10 PT 23.3 Seconds (9.8-13.1) H 08/19/16 17:50 INR 2.0 (0.9-1.2) H 08/19/16 17:50 APTT 42.2 Seconds (25.6-37.1) H 08/19/16 17:50 - Respiratory Exam Respiratory Exam: Clear to Ausculation Bilateral - Cardiovascular Exam Cardiovascular Exam: REGULAR RHYTHM, +S1, +S2 - Extremities Exam Extremities Exam: Pedal Edema - Additional Findings 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
--- NOTE | 2016-08-24 14:02 | CP.PCM.PN ---
Subjective - Date & Time of Evaluation Date of Evaluation: 08/24/16 Time of Evaluation: 13:59 - Subjective Subjective: The patient was briefly seen during morning rounds. He offered no complaints of dyspnea while at rest. He did have some congested cough with clear mucoid sputum expectoration. His complaints this morning were of back pain and abdominal pain. There appears to be no improvement/weight loss to date. Objective - Vital Signs/Intake and Output Vital Signs (last 24 hours): Temp Pulse Resp BP Pulse Ox 97.4 F L 86 18 133/50 L 99 08/24/16 12:28 08/24/16 12:28 08/24/16 12:28 08/24/16 12:28 08/24/16 12:28 - Medications Medications: Current Medications Acetaminophen (Tylenol 325mg Tab) 650 mg PO Q6 PRN PRN Reason: Pain, moderate (4-7) Last Admin: 08/22/16 06:34 Dose: 650 mg Albuterol (Ventolin Hfa 90 Mcg/Actuation (8 G)) 1 puff INH RQ4 PRN PRN Reason: Shortness of Breath Albuterol/Ipratropium (Duoneb 3 Mg/0.5 Mg (3 Ml) Ud) 3 ml INH RTID [facility] Last Admin: 08/24/16 08:00 Dose: 3 ml Amiodarone HCl (Cordarone) 200 mg PO DAILY [facility] Last Admin: 08/24/16 09:00 Dose: 200 mg Clotrimazole (Lotrimin 1% Cream) 1 applic TOP BID [facility] Last Admin: 08/24/16 09:01 Dose: 1 applic Furosemide (Lasix) 40 mg IV BID [facility] Last Admin: 08/24/16 08:59 Dose: 40 mg Hydrocortisone (Cortizone 1% Cream) 1 applic TOP BID [facility] Last Admin: 08/24/16 09:02 Dose: 1 applic Cefazolin Sodium 1 gm/ Sodium (Chloride) 100 mls @ 100 mls/hr IVPB Q8 [facility] Last Admin: 08/24/16 08:59 Dose: 100 mls/hr Lidocaine (Lidoderm) 1 ea TD DAILY [facility] Mupirocin (Bactroban Ointment) 1 applic TOP BID [facility] Last Admin: 08/24/16 09:00 Dose: 1 applic - Labs Labs: 08/24/16 04:10 08/24/16 04:10 PT 23.3 Seconds (9.8-13.1) H 08/19/16 17:50 INR 2.0 (0.9-1.2) H 08/19/16 17:50 APTT 42.2 Seconds (25.6-37.1) H 08/19/16 17:50 Assessment and Plan (1) Wheezing symptom Status: Acute
[2016-08-24] MEDS: Lidocaine 5% Patch TD SCH (15:34)
--- NOTE | 2016-08-24 18:18 | CP.PCM.PN ---
Subjective - Date & Time of Evaluation Date of Evaluation: 08/24/16 Time of Evaluation: 18:15 - Subjective Subjective: Patient ambulating in hallway No abdominal complaints. [place] some pressure yesterday improved after laxating. Objective - Vital Signs/Intake and Output Vital Signs (last 24 hours): Temp Pulse Resp BP Pulse Ox 97.8 F 79 18 126/50 L 96 08/24/16 16:00 08/24/16 16:00 08/24/16 16:00 08/24/16 16:51 08/24/16 16:00 - Medications Medications: Current Medications Acetaminophen (Tylenol 325mg Tab) 650 mg PO Q6 PRN PRN Reason: Pain, moderate (4-7) Last Admin: 08/24/16 15:33 Dose: 650 mg Albuterol (Ventolin Hfa 90 Mcg/Actuation (8 G)) 1 puff INH RQ4 PRN PRN Reason: Shortness of Breath Albuterol/Ipratropium (Duoneb 3 Mg/0.5 Mg (3 Ml) Ud) 3 ml INH RTID [facility] Last Admin: 08/24/16 14:00 Dose: 3 ml Amiodarone HCl (Cordarone) 200 mg PO DAILY [facility] Last Admin: 08/24/16 09:00 Dose: 200 mg Clotrimazole (Lotrimin 1% Cream) 1 applic TOP BID [facility] Last Admin: 08/24/16 16:50 Dose: 1 applic Furosemide (Lasix) 40 mg IV BID [facility] Last Admin: 08/24/16 16:51 Dose: 40 mg Hydrocortisone (Cortizone 1% Cream) 1 applic TOP BID [facility] Last Admin: 08/24/16 16:51 Dose: 1 applic Cefazolin Sodium 1 gm/ Sodium (Chloride) 100 mls @ 100 mls/hr IVPB Q8 [facility] Last Admin: 08/24/16 16:50 Dose: 100 mls/hr Lidocaine (Lidoderm) 1 ea TD DAILY [facility] Last Admin: 08/24/16 15:34 Dose: 1 ea Mupirocin (Bactroban Ointment) 1 applic TOP BID [facility] Last Admin: 08/24/16 16:52 Dose: 1 applic - Labs Labs: 08/24/16 04:10 08/24/16 04:10 PT 23.3 Seconds (9.8-13.1) H 08/19/16 17:50 INR 2.0 (0.9-1.2) H 08/19/16 17:50 APTT 42.2 Seconds (25.6-37.1) H 08/19/16 17:50 - Head Exam Head Exam: ATRAUMATIC - Eye Exam Eye Exam: PERRL, Scleral icterus - ENT Exam ENT Exam: Normal Exam - Neck Exam Neck Exam: Normal Inspection - Respiratory Exam Respiratory Exam: NORMAL BREATHING PATTERN - Cardiovascular Exam Cardiovascular Exam: +S1, +S2 - GI/Abdominal Exam GI & Abdominal Exam: Firm Assessment and Plan (1) Cirrhosis of liver with ascites Assessment & Plan: Advanced liver cirrhosis. Patient understands need to be seen at transplant center immediately after discharge. BUN/creatinine remain high but not increasing Status: Acute
--- NOTE | 2016-08-24 18:47 | CP.PCM.PN ---
Subjective - Date & Time of Evaluation Date of Evaluation: 08/24/16 Time of Evaluation: 09:00 - Subjective Subjective: afebrile legs improved blood c/s neg for transplant center eval- will need bx cont wound care prognosis guarded Objective - Vital Signs/Intake and Output Vital Signs (last 24 hours): Temp Pulse Resp BP Pulse Ox 97.8 F 79 18 126/50 L 96 08/24/16 16:00 08/24/16 16:00 08/24/16 16:00 08/24/16 16:51 08/24/16 16:00 Intake and Output: 08/24/16 08/24/16 06:59 18:59 Intake Total 750 Output Total 800 Balance -50 - Medications Medications: Current Medications Acetaminophen (Tylenol 325mg Tab) 650 mg PO Q6 PRN PRN Reason: Pain, moderate (4-7) Last Admin: 08/24/16 15:33 Dose: 650 mg Albuterol (Ventolin Hfa 90 Mcg/Actuation (8 G)) 1 puff INH RQ4 PRN PRN Reason: Shortness of Breath Albuterol/Ipratropium (Duoneb 3 Mg/0.5 Mg (3 Ml) Ud) 3 ml INH RTID [facility] Last Admin: 08/24/16 14:00 Dose: 3 ml Amiodarone HCl (Cordarone) 200 mg PO DAILY [facility] Last Admin: 08/24/16 09:00 Dose: 200 mg Clotrimazole (Lotrimin 1% Cream) 1 applic TOP BID [facility] Last Admin: 08/24/16 16:50 Dose: 1 applic Furosemide (Lasix) 40 mg IV BID [facility] Last Admin: 08/24/16 16:51 Dose: 40 mg Hydrocortisone (Cortizone 1% Cream) 1 applic TOP BID [facility] Last Admin: 08/24/16 16:51 Dose: 1 applic Cefazolin Sodium 1 gm/ Sodium (Chloride) 100 mls @ 100 mls/hr IVPB Q8 [facility] Last Admin: 08/24/16 16:50 Dose: 100 mls/hr Lidocaine (Lidoderm) 1 ea TD DAILY [facility] Last Admin: 08/24/16 15:34 Dose: 1 ea Mupirocin (Bactroban Ointment) 1 applic TOP BID [facility] Last Admin: 08/24/16 16:52 Dose: 1 applic - Labs Labs: 08/24/16 04:10 08/24/16 04:10 PT 23.3 Seconds (9.8-13.1) H 08/19/16 17:50 INR 2.0 (0.9-1.2) H 08/19/16 17:50 APTT 42.2 Seconds (25.6-37.1) H 08/19/16 17:50 - Constitutional Appears: Non-toxic, Chronically Ill - Head Exam Head Exam: NORMOCEPHALIC - Eye Exam Eye Exam: Scleral icterus - ENT Exam ENT Exam: Mucous Membranes Dry - Neck Exam Neck Exam: absent: Lymphadenopathy - Respiratory Exam Respiratory Exam: Decreased Breath Sounds, Rhonchi - Cardiovascular Exam Cardiovascular Exam: REGULAR RHYTHM, +S1, +S2, Murmur - GI/Abdominal Exam GI & Abdominal Exam: Distended, Soft. absent: Guarding, Tenderness - Rectal Exam Rectal Exam: Deferred - Exam Exam: NORMAL INSPECTION - Back Exam Back Exam: absent: CVA tenderness (L), CVA tenderness (R) - Neurological Exam Neurological Exam: Alert, Awake Assessment and Plan (1) Cirrhosis of liver with ascites Status: Acute (2) Erysipelas of lower extremity Status: Acute (3) Leg edema Status: Acute
--- NOTE | 2016-08-24 19:24 | CP.PCM.PN ---
Subjective - Date & Time of Evaluation Date of Evaluation: 08/24/16 Time of Evaluation: 22:22 - Subjective Subjective: Above noted Objective - Vital Signs/Intake and Output Vital Signs (last 24 hours): Temp Pulse Resp BP Pulse Ox 97.8 F 79 18 126/50 L 96 08/24/16 16:00 08/24/16 16:00 08/24/16 16:00 08/24/16 16:51 08/24/16 16:00 Intake and Output: 08/24/16 08/25/16 18:59 06:59 Intake Total 750 Output Total 800 Balance -50 - Medications Medications: Current Medications Acetaminophen (Tylenol 325mg Tab) 650 mg PO Q6 PRN PRN Reason: Pain, moderate (4-7) Last Admin: 08/24/16 15:33 Dose: 650 mg Albuterol (Ventolin Hfa 90 Mcg/Actuation (8 G)) 1 puff INH RQ4 PRN PRN Reason: Shortness of Breath Albuterol/Ipratropium (Duoneb 3 Mg/0.5 Mg (3 Ml) Ud) 3 ml INH RTID [facility] Last Admin: 08/24/16 19:07 Dose: 3 ml Amiodarone HCl (Cordarone) 200 mg PO DAILY [facility] Last Admin: 08/24/16 09:00 Dose: 200 mg Clotrimazole (Lotrimin 1% Cream) 1 applic TOP BID [facility] Last Admin: 08/24/16 16:50 Dose: 1 applic Furosemide (Lasix) 40 mg IV BID [facility] Last Admin: 08/24/16 16:51 Dose: 40 mg Hydrocortisone (Cortizone 1% Cream) 1 applic TOP BID [facility] Last Admin: 08/24/16 16:51 Dose: 1 applic Cefazolin Sodium 1 gm/ Sodium (Chloride) 100 mls @ 100 mls/hr IVPB Q8 [facility] Last Admin: 08/24/16 16:50 Dose: 100 mls/hr Lidocaine (Lidoderm) 1 ea TD DAILY [facility] Last Admin: 08/24/16 15:34 Dose: 1 ea Mupirocin (Bactroban Ointment) 1 applic TOP BID [facility] Last Admin: 08/24/16 16:52 Dose: 1 applic - Labs Labs: 08/24/16 04:10 08/24/16 04:10 PT 23.3 Seconds (9.8-13.1) H 08/19/16 17:50 INR 2.0 (0.9-1.2) H 08/19/16 17:50 APTT 42.2 Seconds (25.6-37.1) H 08/19/16 17:50 - Respiratory Exam Respiratory Exam: NORMAL BREATHING PATTERN - Cardiovascular Exam Cardiovascular Exam: REGULAR RHYTHM - GI/Abdominal Exam GI & Abdominal Exam: Normal Bowel Sounds Assessment and Plan - Assessment and Plan (Free Text) Assessment: Lower extremity edema with erythema Leg elevation Lasix Cefazolin ID Podiatry SOB? 2 to ascites Duoneb CXR Lung pefusion scan (low probability) Pulmonary consult appreciated Cirrhosis Hepatosplenomegaly Portal HTN ascites etiol?? Pancytopenia Low prot/alb s/p paracentesis last admission Lasix Albumin ?? Aldactone CKD? Hepatorenal? GI Nephrology Liver transplant? Low back pain etiol? improved Physiatry consult A-fib/ rate controlled Amiodorone INR 2.0 Cardiology
[2016-08-25] MEDS: ceFAZolin 1 GM in Sodium Chloride 0.9% 100 ML IVPB SCH ×3 (00:50→16:10)
[2016-08-25 08:00] VITALS: RESP 18; TEMP 97.8
--- NOTE | 2016-08-25 08:18 | CP.PCM.PN ---
Subjective - Date & Time of Evaluation Date of Evaluation: 08/25/16 Time of Evaluation: 08:15 - Subjective Subjective: 71 y/o male seen at bedside with attending Dr. Clemens for bilateral leg swelling and vasculitis. Pt is in NAD and is AAOx3. Pt denies of any pain to his legs. Pt denies any overnight events. Pt denies of any F/N/V/C/SOB. Patient states that he has been having nose bleeds from the oxygen mask but he has been keeping his nose moist with water to prevent them. Pt's dressing remain clean, dry and intact. Objective - Vital Signs/Intake and Output Vital Signs (last 24 hours): Temp Pulse Resp BP Pulse Ox 97.8 F 88 18 122/58 L 96 08/25/16 08:00 08/25/16 08:00 08/25/16 08:00 08/25/16 08:00 08/25/16 08:00 - Medications Medications: Current Medications Acetaminophen (Tylenol 325mg Tab) 650 mg PO Q6 PRN PRN Reason: Pain, moderate (4-7) Last Admin: 08/24/16 15:33 Dose: 650 mg Albuterol (Ventolin Hfa 90 Mcg/Actuation (8 G)) 1 puff INH RQ4 PRN PRN Reason: Shortness of Breath Albuterol/Ipratropium (Duoneb 3 Mg/0.5 Mg (3 Ml) Ud) 3 ml INH RTID [facility] Last Admin: 08/24/16 19:07 Dose: 3 ml Amiodarone HCl (Cordarone) 200 mg PO DAILY [facility] Last Admin: 08/24/16 09:00 Dose: 200 mg Clotrimazole (Lotrimin 1% Cream) 1 applic TOP BID [facility] Last Admin: 08/24/16 16:50 Dose: 1 applic Furosemide (Lasix) 40 mg IV BID [facility] Last Admin: 08/24/16 16:51 Dose: 40 mg Hydrocortisone (Cortizone 1% Cream) 1 applic TOP BID [facility] Last Admin: 08/24/16 16:51 Dose: 1 applic Cefazolin Sodium 1 gm/ Sodium (Chloride) 100 mls @ 100 mls/hr IVPB Q8 [facility] Last Admin: 08/25/16 00:50 Dose: 100 mls/hr Lidocaine (Lidoderm) 1 ea TD DAILY [facility] Last Admin: 08/24/16 15:34 Dose: 1 ea Mupirocin (Bactroban Ointment) 1 applic TOP BID [facility] Last Admin: 08/24/16 16:52 Dose: 1 applic - Labs Labs: 08/24/16 04:10 08/24/16 04:10 PT 23.3 Seconds (9.8-13.1) H 08/19/16 17:50 INR 2.0 (0.9-1.2) H 08/19/16 17:50 APTT 42.2 Seconds (25.6-37.1) H 08/19/16 17:50 - Constitutional Appears: Well, Non-toxic, No Acute Distress - Extremities Exam Additional comments: VASC: DP/PT: 2/4 b/l, [employer]: < 3 sec x 10, TG: warm to cool, bilateral pitting edema noted to the distal leg and dorsum of the foot DERM: Bilateral nonblanching erythema noted on the lower extremity extending just distal to the knees b/l, minimal drainage from the lateral ankle b/l, small drained blisters on the left anterior ankle noted with granular base, no deep wounds, no malodor, no purulence drainage noted NEURO: Grossly intact ORTHO: mild pain on palpation of the b/l lower extremities. - Neurological Exam Neurological Exam: Alert, Awake, Oriented x3 - Psychiatric Exam Psychiatric exam: Normal Affect, Normal Mood Assessment and Plan - Assessment and Plan (Free Text) Assessment: 71 y/o male seen at bedside with bilateral leg edema and vasculitis Plan: Pt evaluated and chart reviewed seen at bedside with attending Dr. Clemens Legs dressed with bactroban, hydrocortisone, DSD and NABIL bilaterally Pt to continue IV abx as per ID Podiatry to follow daily
[2016-08-25] MEDS: Albuterol-Ipratrop 3 mg / 0.5 (3 ml) UD INH SCH ×2 (09:00→13:36)
[2016-08-25] MEDS: Lidocaine 5% Patch TD SCH (09:04)
--- NOTE | 2016-08-25 09:57 | CP.PCM.PN ---
Subjective - Date & Time of Evaluation Date of Evaluation: 08/25/16 Time of Evaluation: 09:15 - Subjective Subjective: NO CHEST PAIN BREATHING BETTER Objective - Vital Signs/Intake and Output Vital Signs (last 24 hours): Temp Pulse Resp BP Pulse Ox 97.8 F 88 18 122/58 L 96 08/25/16 08:00 08/25/16 09:03 08/25/16 08:00 08/25/16 09:03 08/25/16 08:00 - Medications Medications: Current Medications Acetaminophen (Tylenol 325mg Tab) 650 mg PO Q6 PRN PRN Reason: Pain, moderate (4-7) Last Admin: 08/24/16 15:33 Dose: 650 mg Albuterol (Ventolin Hfa 90 Mcg/Actuation (8 G)) 1 puff INH RQ4 PRN PRN Reason: Shortness of Breath Albuterol/Ipratropium (Duoneb 3 Mg/0.5 Mg (3 Ml) Ud) 3 ml INH RTID [facility] Last Admin: 08/25/16 09:00 Dose: 3 ml Amiodarone HCl (Cordarone) 200 mg PO DAILY [facility] Last Admin: 08/25/16 09:03 Dose: 200 mg Clotrimazole (Lotrimin 1% Cream) 1 applic TOP BID [facility] Last Admin: 08/25/16 09:05 Dose: 1 applic Furosemide (Lasix) 40 mg IV BID [facility] Last Admin: 08/25/16 09:02 Dose: 40 mg Hydrocortisone (Cortizone 1% Cream) 1 applic TOP BID [facility] Last Admin: 08/25/16 09:03 Dose: 1 applic Cefazolin Sodium 1 gm/ Sodium (Chloride) 100 mls @ 100 mls/hr IVPB Q8 [facility] Last Admin: 08/25/16 09:04 Dose: 100 mls/hr Lidocaine (Lidoderm) 1 ea TD DAILY [facility] Last Admin: 08/25/16 09:04 Dose: 1 ea Mupirocin (Bactroban Ointment) 1 applic TOP BID [facility] Last Admin: 08/25/16 09:04 Dose: 1 applic - Labs Labs: 08/24/16 04:10 08/24/16 04:10 PT 23.3 Seconds (9.8-13.1) H 08/19/16 17:50 INR 2.0 (0.9-1.2) H 08/19/16 17:50 APTT 42.2 Seconds (25.6-37.1) H 08/19/16 17:50 - Respiratory Exam Additional comments: COARSE BREATH SOUNDS AND SOME RALES - Extremities Exam Extremities Exam: Pedal Edema Additional comments: LE SKIN REDNESS DECREASING - Additional Findings Additional findings: CONDTINUE AMIODARONE, FUROSEMIDE Assessment and Plan - Assessment and Plan (Free Text) Assessment: S/P ATRIAL FIBRILLATION-NOW IN NSR ERYSIPELAS CIRRHOSIS OF THE LIVER Plan: CONTINUE AMIODARONE, FUROSEMIDE AND ANTIBIOTICS ZAROXOLYN ORDERED FOR LEG EDEMA SUGGESTED BY NEPHROLOGY
[2016-08-25] MEDS ORDERED: metOLazone 2.5 MG TAB PO SCH (10:00)
--- NOTE | 2016-08-25 10:27 | CP.PCM.PN ---
Subjective - Date & Time of Evaluation Date of Evaluation: 08/25/16 Time of Evaluation: 10:25 - Subjective Subjective: No significant changes overnight Still complaining of leg swollen Vital signs stable Physical exam Chest no rhonchi Heart no rubs Abdomen soft Extremity remain was 2+ pitting edema at least Recovering from acute kidney injury Zaroxolyn was added monitor daily weight Objective - Vital Signs/Intake and Output Vital Signs (last 24 hours): Temp Pulse Resp BP Pulse Ox 97.8 F 88 18 122/58 L 96 08/25/16 08:00 08/25/16 09:03 08/25/16 08:00 08/25/16 09:03 08/25/16 08:00 - Medications Medications: Current Medications Acetaminophen (Tylenol 325mg Tab) 650 mg PO Q6 PRN PRN Reason: Pain, moderate (4-7) Last Admin: 08/24/16 15:33 Dose: 650 mg Albuterol (Ventolin Hfa 90 Mcg/Actuation (8 G)) 1 puff INH RQ4 PRN PRN Reason: Shortness of Breath Albuterol/Ipratropium (Duoneb 3 Mg/0.5 Mg (3 Ml) Ud) 3 ml INH RTID [facility] Last Admin: 08/25/16 09:00 Dose: 3 ml Amiodarone HCl (Cordarone) 200 mg PO DAILY [facility] Last Admin: 08/25/16 09:03 Dose: 200 mg Clotrimazole (Lotrimin 1% Cream) 1 applic TOP BID [facility] Last Admin: 08/25/16 09:05 Dose: 1 applic Furosemide (Lasix) 40 mg IV BID [facility] Last Admin: 08/25/16 09:02 Dose: 40 mg Hydrocortisone (Cortizone 1% Cream) 1 applic TOP BID [facility] Last Admin: 08/25/16 09:03 Dose: 1 applic Cefazolin Sodium 1 gm/ Sodium (Chloride) 100 mls @ 100 mls/hr IVPB Q8 [facility] Last Admin: 08/25/16 09:04 Dose: 100 mls/hr Lidocaine (Lidoderm) 1 ea TD DAILY [facility] Last Admin: 08/25/16 09:04 Dose: 1 ea Metolazone (Zaroxolyn) 2.5 mg PO DAILY [facility] Mupirocin (Bactroban Ointment) 1 applic TOP BID [facility] Last Admin: 08/25/16 09:04 Dose: 1 applic - Labs Labs: 08/24/16 04:10 08/24/16 04:10 PT 23.3 Seconds (9.8-13.1) H 08/19/16 17:50 INR 2.0 (0.9-1.2) H 08/19/16 17:50 APTT 42.2 Seconds (25.6-37.1) H 08/19/16 17:50
--- NOTE | 2016-08-25 15:32 | CP.PCM.PN ---
Subjective - Date & Time of Evaluation Date of Evaluation: 08/25/16 Time of Evaluation: 15:30 - Subjective Subjective: Seen on rounds in telemetry. 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 He claims to feel his breathing has improved. Review of daily weights shows no decrease. He claims to be urinating frequently and has no dysuria. Breath sounds are present bilaterally with improved aeration in the lung bases. No audible wheezing is heard. Few rhonchi are present in the dependent zones of the lower lobes bilaterally. No bronchial breathing or egophony. No rub. Abdomen remains markedly distended. Edema of the lower extremities appears to be slightly improved. Both legs are wrapped with Dylan bandages. Continue current medical regimen and monitor daily weights. Continue antibiotic therapy for cellulitis of the lower extremities. Objective - Vital Signs/Intake and Output Vital Signs (last 24 hours): Temp Pulse Resp BP Pulse Ox 97.8 F 83 18 111/62 96 08/25/16 12:18 08/25/16 12:18 08/25/16 12:18 08/25/16 12:18 08/25/16 12:18 - Medications Medications: Current Medications Acetaminophen (Tylenol 325mg Tab) 650 mg PO Q6 PRN PRN Reason: Pain, moderate (4-7) Last Admin: 08/24/16 15:33 Dose: 650 mg Albuterol (Ventolin Hfa 90 Mcg/Actuation (8 G)) 1 puff INH RQ4 PRN PRN Reason: Shortness of Breath Albuterol/Ipratropium (Duoneb 3 Mg/0.5 Mg (3 Ml) Ud) 3 ml INH RTID [facility] Last Admin: 08/25/16 13:36 Dose: 3 ml Amiodarone HCl (Cordarone) 200 mg PO DAILY [facility] Last Admin: 08/25/16 09:03 Dose: 200 mg Clotrimazole (Lotrimin 1% Cream) 1 applic TOP BID [facility] Last Admin: 08/25/16 09:05 Dose: 1 applic Furosemide (Lasix) 40 mg IV BID [facility] Last Admin: 08/25/16 09:02 Dose: 40 mg Hydrocortisone (Cortizone 1% Cream) 1 applic TOP BID [facility] Last Admin: 08/25/16 09:03 Dose: 1 applic Cefazolin Sodium 1 gm/ Sodium (Chloride) 100 mls @ 100 mls/hr IVPB Q8 [facility] Last Admin: 08/25/16 09:04 Dose: 100 mls/hr Lidocaine (Lidoderm) 1 ea TD DAILY [facility] Last Admin: 08/25/16 09:04 Dose: 1 ea Metolazone (Zaroxolyn) 2.5 mg PO DAILY [facility] Last Admin: 08/25/16 11:22 Dose: 2.5 mg Mupirocin (Bactroban Ointment) 1 applic TOP BID [facility] Last Admin: 08/25/16 09:04 Dose: 1 applic - Labs Labs: 08/24/16 04:10 08/24/16 04:10 PT 23.3 Seconds (9.8-13.1) H 08/19/16 17:50 INR 2.0 (0.9-1.2) H 08/19/16 17:50 APTT 42.2 Seconds (25.6-37.1) H 08/19/16 17:50 Assessment and Plan (1) Wheezing symptom Status: Acute
[2016-08-25 16:03] VITALS: BP 105/55; PULSE 77; O2SAT 98
--- NOTE | 2016-08-25 18:14 | CP.PCM.PN ---
Subjective - Date & Time of Evaluation Date of Evaluation: 08/25/16 Time of Evaluation: 08:00 - Subjective Subjective: events noted for d/c to [facility] Objective - Vital Signs/Intake and Output Vital Signs (last 24 hours): Temp Pulse Resp BP Pulse Ox 97.8 F 77 18 105/55 L 98 08/25/16 16:00 08/25/16 16:00 08/25/16 16:00 08/25/16 16:11 08/25/16 16:00 Intake and Output: 08/25/16 08/25/16 06:59 18:59 Intake Total 200 Balance 200 - Medications Medications: Current Medications Acetaminophen (Tylenol 325mg Tab) 650 mg PO Q6 PRN PRN Reason: Pain, moderate (4-7) Last Admin: 08/24/16 15:33 Dose: 650 mg Albuterol (Ventolin Hfa 90 Mcg/Actuation (8 G)) 1 puff INH RQ4 PRN PRN Reason: Shortness of Breath Albuterol/Ipratropium (Duoneb 3 Mg/0.5 Mg (3 Ml) Ud) 3 ml INH RTID [facility] Last Admin: 08/25/16 13:36 Dose: 3 ml Amiodarone HCl (Cordarone) 200 mg PO DAILY [facility] Last Admin: 08/25/16 09:03 Dose: 200 mg Clotrimazole (Lotrimin 1% Cream) 1 applic TOP BID [facility] Last Admin: 08/25/16 16:11 Dose: 1 applic Furosemide (Lasix) 40 mg IV BID [facility] Last Admin: 08/25/16 16:11 Dose: 40 mg Hydrocortisone (Cortizone 1% Cream) 1 applic TOP BID [facility] Last Admin: 08/25/16 16:10 Dose: 1 applic Cefazolin Sodium 1 gm/ Sodium (Chloride) 100 mls @ 100 mls/hr IVPB Q8 [facility] Last Admin: 08/25/16 16:10 Dose: 100 mls/hr Lidocaine (Lidoderm) 1 ea TD DAILY [facility] Last Admin: 08/25/16 09:04 Dose: 1 ea Metolazone (Zaroxolyn) 2.5 mg PO DAILY [facility] Last Admin: 08/25/16 11:22 Dose: 2.5 mg Mupirocin (Bactroban Ointment) 1 applic TOP BID [facility] Last Admin: 08/25/16 16:10 Dose: 1 applic - Labs Labs: 08/24/16 04:10 08/24/16 04:10 PT 23.3 Seconds (9.8-13.1) H 08/19/16 17:50 INR 2.0 (0.9-1.2) H 08/19/16 17:50 APTT 42.2 Seconds (25.6-37.1) H 08/19/16 17:50 - Constitutional Appears: Non-toxic, Chronically Ill - Head Exam Head Exam: NORMOCEPHALIC - Eye Exam Eye Exam: Scleral icterus - ENT Exam ENT Exam: Mucous Membranes Dry, Normal External Ear Exam - Neck Exam Neck Exam: absent: Lymphadenopathy - Respiratory Exam Respiratory Exam: Decreased Breath Sounds - Cardiovascular Exam Cardiovascular Exam: REGULAR RHYTHM - GI/Abdominal Exam GI & Abdominal Exam: Distended, Soft Assessment and Plan (1) Cirrhosis of liver with ascites Status: Acute (2) Erysipelas of lower extremity Status: Acute (3) Leg edema Status: Acute
== END 2016-08-25 18:45 | DRG 603 ==
LOC: H.ER 16:15 → H.ERHOLD 18:40 → H.TEL 21:04
PROVIDERS: ADMIT Family Medicine Geriatric Medicine; ATTEND Family Medicine Geriatric Medicine
PROC: 3E0F7GC Introduction of Other Therapeutic Substance into Respiratory Tract, Via Natural or Artificial Opening (ICD-10-PCS; principal; 2016-08-21)
DX: L03.115 Cellulitis of right lower limb (principal); R18.8 Other ascites; K76.6 Portal hypertension; L97.919 Non-pressure chronic ulcer of unspecified part of right lower leg with unspecified severity; I48.91 Unspecified atrial fibrillation; K74.60 Unspecified cirrhosis of liver; A46 Erysipelas; L03.116 Cellulitis of left lower limb; I10 Essential (primary) hypertension; I70.0 Atherosclerosis of aorta; I77.6 Arteritis, unspecified; R04.0 Epistaxis; Z79.82 Long term (current) use of aspirin; Z82.49 Family history of ischemic heart disease and other diseases of the circulatory system; Z87.891 Personal history of nicotine dependence; M19.90 Unspecified osteoarthritis, unspecified site; R60.1 Generalized edema; L95.9 Vasculitis limited to the skin, unspecified

== ENCOUNTER 2016-08-25 15:51 | Inpatient (IN) | payer OTHER, BC ==
[2016-08-25 18:57] VITALS: BMI 38.0
--- NOTE | 2016-08-25 20:13 | CP.PCM.HP ---
History of Present Illness - History of Present Illness History of Present Illness: 71 yo with cirrhosis ascites admitted for progressive worsening of lower extremity edema with cellulitis Present on Admission - Present on Admission Any Indicators Present on Admission: No Past Patient History - Past Medical History & Family History Past Medical History?: Yes - Past Social History Smoking Status: Former Smoker Chewing Tobacco Use: No - CARDIAC Hx Atrial Fibrillation: Yes Hx Hypertension: Yes Hx Peripheral Edema: Yes - PULMONARY Hx Respiratory Disorders: No - NEUROLOGICAL Hx Neurological Disorder: No - HEENT Hx HEENT Problems: No - RENAL Hx Chronic Kidney Disease: No - ENDOCRINE/METABOLIC Hx Endocrine Disorders: No - HEMATOLOGICAL/ONCOLOGICAL Hx Blood Disorders: No Hx Human Immunodeficiency Virus (HIV): No - INTEGUMENTARY Hx Dermatological Problems: No - MUSCULOSKELETAL/RHEUMATOLOGICAL Hx Arthritis: Yes Hx Falls: Yes - GASTROINTESTINAL Other/Comment: Liver Cirrhosis - GENITOURINARY/GYNECOLOGICAL Hx Genitourinary Disorders: No - PSYCHIATRIC Hx Psychophysiologic Disorder: No Hx Substance Use: No - SURGICAL HISTORY Hx Surgeries: Yes Other/Comment: 2000 arthroscopic knee surgery - ANESTHESIA Hx Anesthesia: Yes Hx Anesthesia Reactions: No Hx Malignant Hyperthermia: No Meds Allergies/Adverse Reactions: Allergies Allergy/AdvReac Type Severity Reaction Status Date / Time No Known Allergies Allergy Verified 08/25/16 18:57 Physical Exam - Respiratory Exam Respiratory Exam: NORMAL BREATHING PATTERN - Cardiovascular Exam Cardiovascular Exam: REGULAR RHYTHM - GI/Abdominal Exam GI & Abdominal Exam: Normal Bowel Sounds Assessment & Plan - Assessment and Plan (Free Text) Assessment: Lower extremity edema with erythema Leg elevation Lasix Cefazolin ID Podiatry SOB? 2 to ascites Duoneb CXR Lung pefusion scan (low probability) Pulmonary consult appreciated Cirrhosis Hepatosplenomegaly Portal HTN ascites etiol?? Pancytopenia Low prot/alb s/p paracentesis last admission Lasix Albumin ?? Aldactone CKD? Hepatorenal? GI Nephrology Liver transplant? Low back pain etiol? improved Physiatry consult A-fib/ rate controlled Amiodorone INR 2.0 Cardiology - Date & Time Date: 08/25/16 Time: 22:22
[2016-08-25] MEDS: ceFAZolin 1 GM in Sodium Chloride 0.9% 100 ML IVPB SCH (20:51)
[2016-08-26] MEDS: ceFAZolin 1 GM in Sodium Chloride 0.9% 100 ML IVPB SCH ×3 (04:01→21:46)
[2016-08-26] MEDS: Albuterol-Ipratrop 3 mg / 0.5 (3 ml) UD INH SCH ×3 (07:28→19:13)
--- NOTE | 2016-08-26 09:10 | CP.PCM.CON ---
History of Present Illness - History of Present Illness History of Present Illness: 71 y/o male seen at bedside with Dr. Clemens for bilateral leg edema and erythema. Pt states that he is not feeling well this morning. Pt states that he had a recent change in his medication which maybe causing him to feel that way. Pt appears in NAD and is AAOx3. Pt denies of any acute overnight events. Pt's dressing is clean, dry, and intact. Pt denies of any F/N/V/C/SOB. Review of Systems - Constitutional Constitutional: As Per HPI Past Patient History - Past Medical History & Family History Past Medical History?: Yes - Past Social History Smoking Status: Former Smoker - CARDIAC Hx Atrial Fibrillation: Yes Hx Hypertension: Yes Hx Peripheral Edema: Yes - PULMONARY Hx Respiratory Disorders: No - NEUROLOGICAL Hx Neurological Disorder: No - HEENT Hx HEENT Problems: No - RENAL Hx Chronic Kidney Disease: No - ENDOCRINE/METABOLIC Hx Endocrine Disorders: No - HEMATOLOGICAL/ONCOLOGICAL Hx Blood Disorders: No Hx AIDS: No Hx Human Immunodeficiency Virus (HIV): No - INTEGUMENTARY Hx Dermatological Problems: No - MUSCULOSKELETAL/RHEUMATOLOGICAL Hx Arthritis: Yes Hx Falls: Yes - GASTROINTESTINAL Other/Comment: Liver Cirrhosis - GENITOURINARY/GYNECOLOGICAL Hx Genitourinary Disorders: No - PSYCHIATRIC Hx Psychophysiologic Disorder: No Hx Substance Use: No - SURGICAL HISTORY Hx Surgeries: Yes Other/Comment: 2000 arthroscopic knee surgery - ANESTHESIA Hx Anesthesia: Yes Hx Anesthesia Reactions: No Hx Malignant Hyperthermia: No Meds Allergies/Adverse Reactions: Allergies Allergy/AdvReac Type Severity Reaction Status Date / Time No Known Allergies Allergy Verified 08/25/16 18:57 - Medications Medications: Current Medications Acetaminophen (Tylenol 325mg Tab) 650 mg PO Q6 PRN PRN Reason: Pain, moderate (4-7) Albuterol (Ventolin Hfa 90 Mcg/Actuation (8 G)) 1 puff INH RQ4 PRN PRN Reason: Shortness of Breath Albuterol/Ipratropium (Duoneb 3 Mg/0.5 Mg (3 Ml) Ud) 3 ml INH RTID [facility] Last Admin: 08/26/16 07:28 Dose: 3 ml Amiodarone HCl (Cordarone) 200 mg PO DAILY [facility] Clotrimazole (Lotrimin 1% Cream) 1 applic TOP BID [facility] Furosemide (Lasix) 40 mg IV BID [facility] Hydrocortisone (Cortizone 1% Cream) 1 applic TOP BID [facility] Cefazolin Sodium 1 gm/ Sodium (Chloride) 100 mls @ 100 mls/hr IVPB Q8@0500,1300 ,2100 [facility] Last Admin: 08/26/16 04:01 Dose: 100 mls/hr Lidocaine (Lidoderm) 1 ea TD DAILY [facility] Metolazone (Zaroxolyn) 2.5 mg PO DAILY [facility] Mupirocin (Bactroban Ointment) 1 applic TOP BID [facility] Physical Exam - Constitutional Appears: Well, Non-toxic, No Acute Distress - Extremities Exam Additional comments: VASC: DP/PT pulses are palpable, ONCOLOGY SOCIAL WORK: < 3sec to all digits, TG: warm to cool, edema and erythema noted distal to the knees b/l, erythema resolving from yesterday DERM: Sharply demarked erythema, healing and resolving blisters noted to anterior left ankle, dry scaling skin lesions on anterior shins b/l, no abscess formation, no purulence, no probe to bone, no drainage, no malodor NEURO: Grossly intact ORTHO: no pain on palpation of the calf b/l - Neurological Exam Neurological exam: Alert, Oriented x3 Results - Vital Signs Recent Vital Signs: Last Vital Signs Temp 97.5 F L 08/26/16 08:09 Pulse 96 H 08/26/16 08:09 Resp 20 08/26/16 08:09 BP 123/55 L 08/26/16 08:09 Pulse Ox 96 08/26/16 08:09 Assessment & Plan - Assessment and Plan (Free Text) Assessment: 71 y/o male seen at bedside for bilateral leg edema and erythema secondary to possible vasculitis and erysipelas Plan: Pt evaluated and chart reviewed Pt discussed and seen with attending Dr. Clemens Labs and vitals reviewed Dressing changed using bactroban, hydrocortisone, ABD pads, kerlix and NABIL b/l Continue abx Podiatry will continue to follow while in-house
[2016-08-26] MEDS: Lidocaine 5% Patch TD SCH (09:18)
[2016-08-26] MEDS: metOLazone 2.5 MG TAB PO SCH (10:31)
--- NOTE | 2016-08-26 13:39 | CP.PCM.CON ---
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 He was initially seen on the medical floor and repeat consult requested after discharge to subacute rehabilitation. He continues to complain of some congested cough with minimal clear mucoid sputum production. His breathing has improved with medical therapy while in the hospital, but he awoke this morning with a feeling as though he had "caught a cold". He does still have significant abdominal ascites as well as dependent edema. He is being treated with antibiotics for cellulitis of the lower extremities. He is a former cigarette smoker who practices habit for only about 10 years and stopped in the . There is no prior history of pulmonary disease. Review of Systems - Review of Systems All systems: reviewed and no additional remarkable complaints except - Constitutional Constitutional: Anorexia, Weight Gain - Cardiovascular Cardiovascular: Irregular Heart Rhythm, Leg Edema - Respiratory Respiratory: Cough, Dyspnea on Exertion - Gastrointestinal Gastrointestinal: Nausea, Other (Abdominal distention) - Musculoskeletal Musculoskeletal: Back Pain Past Patient History - Past Medical History & Family History Past Medical History?: Yes - Past Social History Smoking Status: Former Smoker Chewing Tobacco Use: No Cigar Use: No Alcohol: Social Drugs: Denies Home Situation {Lives}: With Family - CARDIAC Hx Atrial Fibrillation: Yes Hx Hypertension: Yes Hx Peripheral Edema: Yes - PULMONARY Hx Respiratory Disorders: No - NEUROLOGICAL Hx Neurological Disorder: No - HEENT Hx HEENT Problems: No - RENAL Hx Chronic Kidney Disease: No - ENDOCRINE/METABOLIC Hx Endocrine Disorders: No - HEMATOLOGICAL/ONCOLOGICAL Hx Blood Disorders: No Hx Human Immunodeficiency Virus (HIV): No - INTEGUMENTARY Hx Dermatological Problems: No - MUSCULOSKELETAL/RHEUMATOLOGICAL Hx Arthritis: Yes Hx Back Pain: Yes Hx Falls: Yes - GASTROINTESTINAL Other/Comment: Liver Cirrhosis with ascites - GENITOURINARY/GYNECOLOGICAL Hx Genitourinary Disorders: No - PSYCHIATRIC Hx Psychophysiologic Disorder: No Hx Substance Use: No - SURGICAL HISTORY Hx Surgeries: Yes Other/Comment: 2000 arthroscopic knee surgery - ANESTHESIA Hx Anesthesia: Yes Hx Anesthesia Reactions: No Hx Malignant Hyperthermia: No Meds Allergies/Adverse Reactions: Allergies Allergy/AdvReac Type Severity Reaction Status Date / Time No Known Allergies Allergy Verified 08/25/16 18:57 - Medications Medications: Current Medications Acetaminophen (Tylenol 325mg Tab) 650 mg PO Q6 PRN PRN Reason: Pain, moderate (4-7) Albuterol (Ventolin Hfa 90 Mcg/Actuation (8 G)) 1 puff INH RQ4 PRN PRN Reason: Shortness of Breath Albuterol/Ipratropium (Duoneb 3 Mg/0.5 Mg (3 Ml) Ud) 3 ml INH RTID [facility] Last Admin: 08/26/16 13:27 Dose: 3 ml Amiodarone HCl (Cordarone) 200 mg PO DAILY [facility] Last Admin: 08/26/16 10:32 Dose: 200 mg Clotrimazole (Lotrimin 1% Cream) 1 applic TOP BID [facility] Last Admin: 08/26/16 09:19 Dose: 1 unit Furosemide (Lasix) 40 mg IV BID [facility] Last Admin: 08/26/16 10:31 Dose: 40 mg Hydrocortisone (Cortizone 1% Cream) 1 applic TOP BID [facility] Last Admin: 08/26/16 09:17 Dose: 1 unit Cefazolin Sodium 1 gm/ Sodium (Chloride) 100 mls @ 100 mls/hr IVPB Q8@0500,1300 ,2100 [facility] Last Admin: 08/26/16 13:09 Dose: 100 mls/hr Lidocaine (Lidoderm) 1 ea TD DAILY [facility] Last Admin: 08/26/16 09:18 Dose: 1 ea Metolazone (Zaroxolyn) 2.5 mg PO DAILY [facility] Last Admin: 08/26/16 10:31 Dose: 2.5 mg Mupirocin (Bactroban Ointment) 1 applic TOP BID [facility] Last Admin: 08/26/16 09:16 Dose: 1 unit Physical Exam - Additional Findings Additional findings: Pleasant male, seated in wheelchair at bedside, alert and oriented. Speech is fluent, memory is intact. Pharynx is pink and moist w/o exudate. Nares are patent bilaterally. Conjunctivae are pink and non-icteric. Neck is supple and trachea midline. No visible JVD. Carotid upstroke slightly blunted bilaterally, no bruits. No palpable thyromegaly. No palpable lymphadenopathy. No dullness on chest percussion, normal vocal tactile fremitus. Breath sounds are present bilaterally, well heard w/o audible wheezes or rales. No bronchial breath sounds or egophony. Few lower lobe rhonchi bilaterally. Heart sounds are well heard and rhythm appears regular, ANASTACIA and diastolic murmur at base, systolic murmur at apex. Markedly distended, tense abdomen. Decreasing edema of both LE's extending to the upper thigh bilaterally, no cyanosis. Results - Vital Signs Recent Vital Signs: Last Vital Signs Temp 97.5 F L 08/26/16 08:09 Pulse 76 08/26/16 10:32 Resp 20 08/26/16 08:09 BP 106/48 L 08/26/16 10:32 Pulse Ox 96 08/26/16 09:13 Assessment & Plan (1) Cough productive of clear sputum Status: Acute Priority: High Comment: Likely a secondary effect due to the incomplete expansion of the lower lobes secondary to abdominal ascites. (2) Abdominal distension Status: Chronic Priority: High (3) Cirrhosis of liver with ascites Status: Chronic Priority: High (4) Leg edema Status: Chronic Priority: High Comment: Improving on current regimen. - Date & Time Date: 08/26/16 Time: 13:54
--- NOTE | 2016-08-26 14:04 | CP.PCM.CON ---
History of Present Illness - History of Present Illness History of Present Illness: THE PATIENT IS A 71 YEAR OLD MALE WHO WAS ADMITTED TO [facility] ONE WEEK AGO FOR REDNESS AND SWELLING OF THE LOWER EXTREMITIES WITH A DIAGNOSIS OF ERYSIPELAS AND HE WAS SEEN BY ID AND STARTED ON ANTIBIOTICS. HE ALSO HAS A HISTORY OF ATRIAL FIBRILLATION WHO WAS MEDICALLY CONVERTED TO SINUS RHYTHM WITH AMIODARONE. 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 HE DENIES CHEST PAIN OR CAD HISTORY. HE GETS SOB THAT IS BELIEVED TO BE FROM CHEST PRESSURE FROM HIS ASCITES. HE WAS DISCHARGED TO TCU AND CARDIOLOGY WAS ASKED TO FOLLOW HIM THERE. Past Patient History - Past Medical History & Family History Past Medical History?: Yes - Past Social History Smoking Status: Former Smoker Chewing Tobacco Use: No Cigar Use: No Alcohol: Social Drugs: Denies Home Situation {Lives}: With Family - CARDIAC Hx Atrial Fibrillation: Yes Hx Hypertension: Yes Hx Peripheral Edema: Yes - PULMONARY Hx Respiratory Disorders: No - NEUROLOGICAL Hx Neurological Disorder: No - HEENT Hx HEENT Problems: No - RENAL Hx Chronic Kidney Disease: No - ENDOCRINE/METABOLIC Hx Endocrine Disorders: No - HEMATOLOGICAL/ONCOLOGICAL Hx Blood Disorders: No Hx Human Immunodeficiency Virus (HIV): No - INTEGUMENTARY Hx Dermatological Problems: No - MUSCULOSKELETAL/RHEUMATOLOGICAL Hx Arthritis: Yes Hx Back Pain: Yes Hx Falls: Yes - GASTROINTESTINAL Other/Comment: Liver Cirrhosis with ascites - GENITOURINARY/GYNECOLOGICAL Hx Genitourinary Disorders: No - PSYCHIATRIC Hx Psychophysiologic Disorder: No Hx Substance Use: No - SURGICAL HISTORY Hx Surgeries: Yes Other/Comment: 2000 arthroscopic knee surgery - ANESTHESIA Hx Anesthesia: Yes Hx Anesthesia Reactions: No Hx Malignant Hyperthermia: No Meds Allergies/Adverse Reactions: Allergies Allergy/AdvReac Type Severity Reaction Status Date / Time No Known Allergies Allergy Verified 08/25/16 18:57 - Medications Medications: Current Medications Acetaminophen (Tylenol 325mg Tab) 650 mg PO Q6 PRN PRN Reason: Pain, moderate (4-7) Albuterol (Ventolin Hfa 90 Mcg/Actuation (8 G)) 1 puff INH RQ4 PRN PRN Reason: Shortness of Breath Albuterol/Ipratropium (Duoneb 3 Mg/0.5 Mg (3 Ml) Ud) 3 ml INH RTID [facility] Last Admin: 08/26/16 13:27 Dose: 3 ml Amiodarone HCl (Cordarone) 200 mg PO DAILY [facility] Last Admin: 08/26/16 10:32 Dose: 200 mg Clotrimazole (Lotrimin 1% Cream) 1 applic TOP BID [facility] Last Admin: 08/26/16 09:19 Dose: 1 unit Furosemide (Lasix) 40 mg IV BID [facility] Last Admin: 08/26/16 10:31 Dose: 40 mg Hydrocortisone (Cortizone 1% Cream) 1 applic TOP BID [facility] Last Admin: 08/26/16 09:17 Dose: 1 unit Cefazolin Sodium 1 gm/ Sodium (Chloride) 100 mls @ 100 mls/hr IVPB Q8@0500,1300 ,2100 [facility] Last Admin: 08/26/16 13:09 Dose: 100 mls/hr Lidocaine (Lidoderm) 1 ea TD DAILY [facility] Last Admin: 08/26/16 09:18 Dose: 1 ea Metolazone (Zaroxolyn) 2.5 mg PO DAILY [facility] Last Admin: 08/26/16 10:31 Dose: 2.5 mg Mupirocin (Bactroban Ointment) 1 applic TOP BID [facility] Last Admin: 08/26/16 09:16 Dose: 1 unit Physical Exam - Respiratory Exam Respiratory Exam: Clear to Auscultation Bilateral - Cardiovascular Exam Cardiovascular Exam: REGULAR RHYTHM, +S1, +S2, Systolic Murmur - Extremities Exam Extremities exam: Positive for: pedal edema Additional comments: REDNESS OF BOTH LOWER EXTREMITIES BUT WITH IMPROVEMENT FROM LAST WEEK Results - Vital Signs Recent Vital Signs: Last Vital Signs Temp 97.5 F L 08/26/16 08:09 Pulse 76 08/26/16 10:32 Resp 20 08/26/16 08:09 BP 106/48 L 08/26/16 10:32 Pulse Ox 96 08/26/16 09:13 Assessment & Plan - Assessment and Plan (Free Text) Assessment: ERYSIPELAS S/P ATRIAL FIBRILLATION-NOW IN NSR CIRRHOSIS OF THE LIVER Plan: CONTINUE AMIODARONE, FUROSEMIDE, ZAROXOLYN, ANTIBIOTICS, DUONEB
--- NOTE | 2016-08-26 14:15 | CP.PCM.CON ---
History of Present Illness - History of Present Illness History of Present Illness: 71 yo referred for ID eval for cont of IV antibiotics Pt has hx of Cirrhosis, severe COPD, HTN, CAD arrythmias Has recurrent swelling of lower extremities with secondary infection and sepsis on at least 2 prior occasions Review of Systems - Constitutional Constitutional: Anorexia, Lethargy, Malaise, Weight Gain - EENT Eyes: absent: As Per HPI, Blind Spots, Blurred Vision, Change in Vision, Decreased Night Vision, Diplopia, Discharge, Dry Eye, Exophthalmos, Floaters, Irritation, Itchy Eyes, Loss of Peripheral Vision, Pain, Photophobia, Requires Corrective Lenses, Sees Flashes, Spots in Vision, Tunnel Vision, Other Visual Disturbances, Loss of Vision, Other Ears: absent: As Per HPI, Decreased Hearing, Ear Discharge, Ear Pain, Tinnitus, Abnormal Hearing, Disequilibrium, Dizziness, Other Nose/Mouth/Throat: absent: As Per HPI, Epistaxis, Nasal Congestion, Nasal Discharge, Nasal Obstruction, Nasal Trauma, Nose Pain, Post Nasal Drip, Sinus Pain, Sinus Pressure, Bleeding Gums, Change in Voice, Dental Pain, Dry Mouth, Dysphagia, Halitosis, Hoarsness, Lip Swelling, Mouth Lesions, Mouth Pain, Odynophagia, Sore Throat, Throat Swelling, Tongue Swelling, Facial Pain, Neck Pain, Neck Mass, Other - Cardiovascular Cardiovascular: absent: As Per HPI, Acrocyanosis, Chest Pain, Chest Pain at Rest , Chest Pain with Activity, Claudication, Diaphoresis, Dyspnea, Dyspnea on Exertion, Edema, Irregular Heart Rhythm, Pain Radiating to Arm/Neck/Jaw, Leg Edema, Leg Ulcers, Lightheadedness, Orthopnea, Palpitations, Paroxysmal Nocturnal Dyspnea, Pedal Edema, Radiating Pain, Rapid Heart Rate, Slow Heart Rate, Syncope, Other - Respiratory Respiratory: Cough, Dyspnea on Exertion - Gastrointestinal Gastrointestinal: absent: As Per HPI, Abdominal Pain, Belching, Bloating, Change in Bowel Habits, Change in Stool Character, Coffee Ground Emesis, Constipation, Cramping, Diarrhea, Dyspepsia, Dysphagia, Early Satiety, Excessive Flatus, Fecal Incontinence, Heartburn, Hematemesis, Hematochezia, Loose Stools, Melena, Nausea, Odynophagia, Temesmus, Vomiting, Other - Genitourinary Genitourinary: absent: As Per HPI, Change in Urinary Stream, Difficulty Urinating, Dysuria, Flank Pain, Hematuria, Pyuria, Nocturia, Urinary Incontinence, Urinary Frequency, Urinary Hesitance, Urinary Urgency, Voiding Freq/Small Amts, Freq UTI, Hx Renal/Bladder Calculi, Hx /Renal Surgery, Bladder Distension, Other - Musculoskeletal Musculoskeletal: As Per HPI - Integumentary Integumentary: As Per HPI - Neurological Neurological: absent: As Per HPI, Abnormal Gait, Abnormal Hearing, Abnormal Movements, Abnormal Speech, Behavioral Changes, Burning Sensations, Confusion, Convulsions, Disequilibrium, Dizziness, Numbness, Focal Weakness, Frequent Falls , Headaches, Lack of Coordination, Loss of Vision, Memory Loss, Paresthesias, Radicular Pain, Restless Legs, Sensory Deficit, Syncope, Tingling, Tremor, Vertigo, Weakness, Other Visual Disturbances, Other - Psychiatric Psychiatric: absent: As Per HPI, Abnormal Sleep Pattern, Anhedonia, Anxiety, Auditory Hallucinations, Behavioral Changes, Change in Appetite, Change in Libido, Confusion, Depression, Difficulty Concentrating, Hallucinations, Homicidal Ideation, Hopelessness, Irritability, Memory Loss, Mood Swings, Panic Attacks, Paranoia, Suicidal Ideation, Visual Hallucinations, Tactile Hallucinations, Other - Endocrine Endocrine: absent: As Per HPI, Change in Body Appearance, Change in Libido, Cold Intolorance, Deepening of Voice, Excessive Sweating, Fatigue, Flushing, Heat Intolorance, Increase in Ring/Shoe/Hat Size, Palpitations, Polydipsia, Polyphagia, Polyuria, Other - Hematologic/Lymphatic Hematologic: absent: As Per HPI, Easy Bleeding, Easy Bruising, Lymphadenopathy, Other Past Patient History - Past Medical History & Family History Past Medical History?: Yes - Past Social History Smoking Status: Former Smoker Chewing Tobacco Use: No Cigar Use: No Alcohol: Social Drugs: Denies Home Situation {Lives}: With Family - CARDIAC Hx Atrial Fibrillation: Yes Hx Hypertension: Yes Hx Peripheral Edema: Yes - PULMONARY Hx Respiratory Disorders: No - NEUROLOGICAL Hx Neurological Disorder: No - HEENT Hx HEENT Problems: No - RENAL Hx Chronic Kidney Disease: No - ENDOCRINE/METABOLIC Hx Endocrine Disorders: No - HEMATOLOGICAL/ONCOLOGICAL Hx Blood Disorders: No Hx Human Immunodeficiency Virus (HIV): No - INTEGUMENTARY Hx Dermatological Problems: No - MUSCULOSKELETAL/RHEUMATOLOGICAL Hx Arthritis: Yes Hx Back Pain: Yes Hx Falls: Yes - GASTROINTESTINAL Other/Comment: Liver Cirrhosis with ascites - GENITOURINARY/GYNECOLOGICAL Hx Genitourinary Disorders: No - PSYCHIATRIC Hx Psychophysiologic Disorder: No Hx Substance Use: No - SURGICAL HISTORY Hx Surgeries: Yes Other/Comment: 2000 arthroscopic knee surgery - ANESTHESIA Hx Anesthesia: Yes Hx Anesthesia Reactions: No Hx Malignant Hyperthermia: No Meds Allergies/Adverse Reactions: Allergies Allergy/AdvReac Type Severity Reaction Status Date / Time No Known Allergies Allergy Verified 08/25/16 18:57 - Medications Medications: Current Medications Acetaminophen (Tylenol 325mg Tab) 650 mg PO Q6 PRN PRN Reason: Pain, moderate (4-7) Albuterol (Ventolin Hfa 90 Mcg/Actuation (8 G)) 1 puff INH RQ4 PRN PRN Reason: Shortness of Breath Albuterol/Ipratropium (Duoneb 3 Mg/0.5 Mg (3 Ml) Ud) 3 ml INH RTID [facility] Last Admin: 08/26/16 13:27 Dose: 3 ml Amiodarone HCl (Cordarone) 200 mg PO DAILY [facility] Last Admin: 08/26/16 10:32 Dose: 200 mg Clotrimazole (Lotrimin 1% Cream) 1 applic TOP BID [facility] Last Admin: 08/26/16 09:19 Dose: 1 unit Furosemide (Lasix) 40 mg IV BID [facility] Last Admin: 08/26/16 10:31 Dose: 40 mg Hydrocortisone (Cortizone 1% Cream) 1 applic TOP BID [facility] Last Admin: 08/26/16 09:17 Dose: 1 unit Cefazolin Sodium 1 gm/ Sodium (Chloride) 100 mls @ 100 mls/hr IVPB Q8@0500,1300 ,2100 [facility] Last Admin: 08/26/16 13:09 Dose: 100 mls/hr Lidocaine (Lidoderm) 1 ea TD DAILY [facility] Last Admin: 08/26/16 09:18 Dose: 1 ea Metolazone (Zaroxolyn) 2.5 mg PO DAILY [facility] Last Admin: 08/26/16 10:31 Dose: 2.5 mg Mupirocin (Bactroban Ointment) 1 applic TOP BID [facility] Last Admin: 08/26/16 09:16 Dose: 1 unit Physical Exam - Constitutional Appears: Non-toxic, Chronically Ill - Head Exam Head Exam: ATRAUMATIC, NORMAL INSPECTION, NORMOCEPHALIC - Eye Exam Eye Exam: PERRL. absent: Scleral icterus - ENT Exam ENT Exam: Mucous Membranes Dry, Normal External Ear Exam, Normal Oropharynx - Neck Exam Neck exam: Negative for: Lymphadenopathy - Respiratory Exam Respiratory Exam: Decreased Breath Sounds, Rhonchi - Cardiovascular Exam Cardiovascular Exam: REGULAR RHYTHM, +S1, +S2 - GI/Abdominal Exam GI & Abdominal Exam: Diminished Bowel Sounds, Distended, Firm, Guarding, Organomegaly, Soft. absent: Pulsatile Mass, Rebound, Rigid, Tenderness - Rectal Exam Rectal Exam: Deferred - Exam Exam: NORMAL INSPECTION - Extremities Exam Extremities exam: Positive for: calf tenderness, pedal edema, tenderness. Negative for: pedal pulses present - Back Exam Back exam: absent: CVA tenderness (L), CVA tenderness (R) - Neurological Exam Neurological exam: Alert, CN II-XII Intact, Oriented x3, Reflexes Normal - Psychiatric Exam Psychiatric exam: Depressed - Skin Skin Exam: Dry Results - Vital Signs Recent Vital Signs: Last Vital Signs Temp 97.5 F L 08/26/16 08:09 Pulse 76 08/26/16 10:32 Resp 20 08/26/16 08:09 BP 106/48 L 08/26/16 10:32 Pulse Ox 96 08/26/16 09:13 Assessment & Plan (1) Erysipelas of lower extremity Status: Acute (2) Cirrhosis of liver with ascites Status: Chronic Priority: High (3) Leg edema Status: Chronic Priority: High - Assessment and Plan (Free Text) Assessment: cont iv rx discussed at length with medical team
[2016-08-26 15:06] LABS: HEMATOCRIT 30.8 % (35.0-51.0); MEAN CELL VOLUME 106.2 fl (80.0-94.0); MEAN CORPUSCULAR HEMOGLOBIN 35.5 pg (27.0-31.0); MEAN CORPUSCULAR HGB CONC 33.4 g/dL (33.0-37.0); RED CELL DISTRIBUTION WIDTH 16.6 % (11.5-14.5); WHITE BLOOD COUNT 8.6 K/uL (4.8-10.8)
[2016-08-26 15:22] LABS: CALCIUM 8.1 mg/dL (8.4-10.2)
[2016-08-26 15:25] LABS: POTASSIUM 5.4 MMOL/L (3.6-5.0)
[2016-08-26] MEDS ORDERED: Sod Polystyrene Sulf 15 gm/60 ml Oral Susp PO ONE (15:48)
[2016-08-26] MEDS: Albumin Human 25% (12.5 gm/50 ml) IV SCH (16:58)
--- NOTE | 2016-08-26 19:34 | CP.PCM.PN ---
Subjective - Date & Time of Evaluation Date of Evaluation: 08/26/16 Time of Evaluation: 22:22 - Subjective Subjective: GI upset today Improved with medication Rocephin started Increased BUN/creat Zaroxoylyn started yesterday Objective - Vital Signs/Intake and Output Vital Signs (last 24 hours): Temp Pulse Resp BP Pulse Ox 96.8 F L 85 20 110/47 L 100 08/26/16 16:22 08/26/16 16:22 08/26/16 16:22 08/26/16 16:57 08/26/16 16:22 - Medications Medications: Current Medications Acetaminophen (Tylenol 325mg Tab) 650 mg PO Q6 PRN PRN Reason: Pain, moderate (4-7) Albumin Human (Albumin Human 25% (12.5 Gm/50 Ml)) 12.5 gm IV Q8 [facility] Stop: 08/29/16 17:01 Last Admin: 08/26/16 16:58 Dose: 12.5 gm Albuterol (Ventolin Hfa 90 Mcg/Actuation (8 G)) 1 puff INH RQ4 PRN PRN Reason: Shortness of Breath Albuterol/Ipratropium (Duoneb 3 Mg/0.5 Mg (3 Ml) Ud) 3 ml INH RTID [facility] Last Admin: 08/26/16 19:13 Dose: 3 ml Amiodarone HCl (Cordarone) 200 mg PO DAILY [facility] Last Admin: 08/26/16 10:32 Dose: 200 mg Clotrimazole (Lotrimin 1% Cream) 1 applic TOP BID [facility] Last Admin: 08/26/16 17:00 Dose: 1 unit Furosemide (Lasix) 40 mg IV BID [facility] Last Admin: 08/26/16 16:57 Dose: 40 mg Hydrocortisone (Cortizone 1% Cream) 1 applic TOP BID [facility] Last Admin: 08/26/16 17:00 Dose: 1 unit Cefazolin Sodium 1 gm/ Sodium (Chloride) 100 mls @ 100 mls/hr IVPB Q8@0500,1300 ,2100 [facility] Last Admin: 08/26/16 13:09 Dose: 100 mls/hr Ceftriaxone Sodium 1 gm/ (Sodium Chloride) 100 mls @ 100 mls/hr IVPB DAILY [facility] Lidocaine (Lidoderm) 1 ea TD DAILY [facility] Last Admin: 08/26/16 09:18 Dose: 1 ea Metolazone (Zaroxolyn) 2.5 mg PO DAILY [facility] Last Admin: 08/26/16 10:31 Dose: 2.5 mg Mupirocin (Bactroban Ointment) 1 applic TOP BID [facility] Last Admin: 08/26/16 17:00 Dose: 1 unit - Labs Labs: 08/26/16 14:30 08/26/16 14:30 PT 25.9 Seconds (9.8-13.1) H 08/26/16 14:30 INR 2.3 (0.9-1.2) H 08/26/16 14:30 - Respiratory Exam Respiratory Exam: NORMAL BREATHING PATTERN - Cardiovascular Exam Cardiovascular Exam: REGULAR RHYTHM - GI/Abdominal Exam GI & Abdominal Exam: Normal Bowel Sounds Assessment and Plan - Assessment and Plan (Free Text) Assessment: Lower extremity edema with erythema Leg elevation Lasix Cefazolin ID Podiatry SOB? 2 to ascites Duoneb CXR Lung pefusion scan (low probability) Pulmonary consult appreciated Cirrhosis Hepatosplenomegaly Portal HTN ascites etiol?? Pancytopenia Low prot/alb s/p paracentesis last admission Lasix Albumin ?? Aldactone CKD? Hepatorenal? GI Nephrology Liver transplant? Low back pain etiol? improved Physiatry consult A-fib/ rate controlled Amiodorone INR 2.0 Cardiology
--- NOTE | 2016-08-26 20:33 | CON ---
DATE: 08/26/2016 REQUESTING PHYSICIAN: Dr. Vicente Angel. HISTORY OF PRESENT ILLNESS: This patient is a 71-year-old male, who was in [address] [place] [address] and he was transf erred upstairs now for subacute rehab for IV antibiotics. He was admitted because of increasing and massive swelling of the lower extremity abnormal kidney function and he was diagnosed to have l iver cirrhosis without significant proteinuria. The patient was treated with intravenous Lasix. Zaro xolyn was added to diurese him. In addition, he was given antibiotics. He was seen by GI, cardiolog y. The patient also has history of atrial fibrillation and converted on medication, amiodarone. PAST MEDICAL HISTORY: As above, liver cirrhosis and chronic kidney disease and probably acute kidney injury superimposed on chronic kidney disease. I cannot rule out also impending hepatorenal syndrom e at the time. PHYSICAL EXAMINATION: GENERAL: He is conscious, not in acute distress. VITAL SIGNS: His blood pressure is 110/47, temperature normal at 96.8, pulse 76. NECK: Supple. CHEST: No significant rales. HEART: No rubs. ABDOMEN: Massive ascites. EXTREMITIES: Massive leg edema to above the knee. LABORATORY DATA: Showed potassium up to 5.4, BUN 58, creatinine 1.6, sodium 139, chloride 107. Hemo globin 10.3, WBC 8.6. IMPRESSION AND PLAN: The patient appears to have acute kidney injury superimposed on chronic kidney disease related to massive edema with edematous state, anasarca basically. The patient is supposed to go for abdominal paracentesis and he developed hyperkalemia. He was given Kayexalate and also to av oid any potassium supplement and we may have to hold Zaroxolyn for now because of the worsening of ki dney function, also to avoid any antibiotics and adjust it renal failure. The patient also rece iving intravenous albumin. Oral Edwards MD cc: 19 TT: 08/26/2016 20:32:58 Confirmation # [id number] Dictation # [id number]
[2016-08-27] MEDS: Albumin Human 25% (12.5 gm/50 ml) IV SCH ×2 (00:19→09:40)
[2016-08-27] MEDS: ceFAZolin 1 GM in Sodium Chloride 0.9% 100 ML IVPB SCH ×3 (05:27→22:51)
[2016-08-27] MEDS: Albuterol-Ipratrop 3 mg / 0.5 (3 ml) UD INH SCH ×4 (07:42→19:50)
[2016-08-27 08:03] LABS: HEMATOCRIT 27.3 % (35.0-51.0); MEAN CELL VOLUME 104.8 fl (80.0-94.0); MEAN CORPUSCULAR HGB CONC 34.3 g/dL (33.0-37.0); RED CELL DISTRIBUTION WIDTH 16.2 % (11.5-14.5); WHITE BLOOD COUNT 8.6 K/uL (4.8-10.8)
[2016-08-27 08:13] LABS: ALB/GLOB RATIO 0.5 (1.0-2.1); BILIRUBIN,TOTAL 2.3 mg/dl (0.2-1.3); POTASSIUM 4.8 MMOL/L (3.6-5.0); TOTAL PROTEIN 7.7 G/DL (6.3-8.2)
--- NOTE | 2016-08-27 09:05 | CP.PCM.PN ---
Subjective - Date & Time of Evaluation Date of Evaluation: 08/27/16 Time of Evaluation: 07:45 - Subjective Subjective: 71 y/o male pt seen at bedside with Dr. Clemens present for f/u of bilateral lower extremity edema and erythema. Pt seen resting comfortably in bed at time of visit. Denies any pain or discomfort to the lower extremities at this time. Denies any acute overnight events. Denies f/n/v/c/sp however does complain of a persistent cough. Says he was having some stomach problems yesterday. Has been getting up with physical therapy and to walk. Objective - Vital Signs/Intake and Output Vital Signs (last 24 hours): Temp Pulse Resp BP Pulse Ox 97.2 F L 82 18 106/52 L 99 08/27/16 07:55 08/27/16 07:55 08/27/16 07:55 08/27/16 07:55 08/27/16 07:55 - Medications Medications: Current Medications Acetaminophen (Tylenol 325mg Tab) 650 mg PO Q6 PRN PRN Reason: Pain, moderate (4-7) Albumin Human (Albumin Human 25% (12.5 Gm/50 Ml)) 12.5 gm IV Q8 [facility] Stop: 08/29/16 17:01 Last Admin: 08/27/16 00:19 Dose: 12.5 gm Albuterol (Ventolin Hfa 90 Mcg/Actuation (8 G)) 1 puff INH RQ4 PRN PRN Reason: Shortness of Breath Albuterol/Ipratropium (Duoneb 3 Mg/0.5 Mg (3 Ml) Ud) 3 ml INH RTID [facility] Last Admin: 08/27/16 07:42 Dose: 3 ml Amiodarone HCl (Cordarone) 200 mg PO DAILY [facility] Last Admin: 08/26/16 10:32 Dose: 200 mg Clotrimazole (Lotrimin 1% Cream) 1 applic TOP BID [facility] Last Admin: 08/26/16 17:00 Dose: 1 unit Furosemide (Lasix) 40 mg IV BID [facility] Last Admin: 08/26/16 16:57 Dose: 40 mg Hydrocortisone (Cortizone 1% Cream) 1 applic TOP BID [facility] Last Admin: 08/26/16 17:00 Dose: 1 unit Cefazolin Sodium 1 gm/ Sodium (Chloride) 100 mls @ 100 mls/hr IVPB Q8@0500,1300 ,2100 [facility] Last Admin: 08/27/16 05:27 Dose: 100 mls/hr Ceftriaxone Sodium 1 gm/ (Sodium Chloride) 100 mls @ 100 mls/hr IVPB DAILY [facility] Last Admin: 08/26/16 22:53 Dose: 100 mls/hr Lidocaine (Lidoderm) 1 ea TD DAILY [facility] Last Admin: 08/26/16 09:18 Dose: 1 ea Metolazone (Zaroxolyn) 2.5 mg PO DAILY [facility] Last Admin: 08/26/16 10:31 Dose: 2.5 mg Mupirocin (Bactroban Ointment) 1 applic TOP BID [facility] Last Admin: 08/26/16 17:00 Dose: 1 unit - Labs Labs: 08/27/16 06:00 08/27/16 06:00 PT 25.9 Seconds (9.8-13.1) H 08/26/16 14:30 INR 2.3 (0.9-1.2) H 08/26/16 14:30 - Constitutional Appears: Non-toxic, No Acute Distress - Extremities Exam Extremities Exam: absent: Calf Tenderness Additional comments: VASC: DP/PT pulses are palpable, [employer]: < 3sec to all digits, TG: warm to cool, edema and erythema noted distal to the knees b/l, erythema resolving from yesterday DERM: Sharply demarked erythema, healing and resolving blisters noted to anterior left ankle, dry scaling skin lesions on anterior shins b/l, no abscess formation, no purulence, no probe to bone, no drainage, no malodor NEURO: Grossly intact ORTHO: no pain on palpation of the calf b/l - Neurological Exam Neurological Exam: Alert, Awake, Oriented x3 - Psychiatric Exam Psychiatric exam: Normal Affect, Normal Mood Assessment and Plan - Assessment and Plan (Free Text) Assessment: 71 y/o male seen at bedside for bilateral leg edema and erythema secondary to possible vasculitis and erysipelas Plan: Pt seen and evaluated with Dr. Clemens present Chart labs and vitals reviewed Dressing changed using bactroban to left foot wounds, hydrocortisone cream to both legs, ABD pads, kerlix and NABIL b/l Continue IV abx (on ancef and rocephin) Podiatry will continue to follow while in-house
[2016-08-27] MEDS: Lidocaine 5% Patch TD SCH (09:47)
[2016-08-27] MEDS: metOLazone 2.5 MG TAB PO SCH (09:49)
[2016-08-27] MEDS: Albuterol HFA 90 mcg/actuation (8 g) INH PRN (09:49)
--- NOTE | 2016-08-27 13:37 | CP.PCM.PN ---
Subjective - Date & Time of Evaluation Date of Evaluation: 08/27/16 Time of Evaluation: 13:00 - Subjective Subjective: NO CHEST PAIN OR SOB DRY THROAT Objective - Vital Signs/Intake and Output Vital Signs (last 24 hours): Temp Pulse Resp BP Pulse Ox 97.2 F L 82 18 122/58 L 99 08/27/16 07:55 08/27/16 09:41 08/27/16 07:55 08/27/16 09:42 08/27/16 07:55 - Medications Medications: Current Medications Acetaminophen (Tylenol 325mg Tab) 650 mg PO Q6 PRN PRN Reason: Pain, moderate (4-7) Albumin Human (Albumin Human 25% (12.5 Gm/50 Ml)) 12.5 gm IV Q8 [facility] Stop: 08/29/16 17:01 Last Admin: 08/27/16 09:40 Dose: 12.5 gm Albuterol (Ventolin Hfa 90 Mcg/Actuation (8 G)) 1 puff INH RQ4 PRN PRN Reason: Shortness of Breath Last Admin: 08/27/16 09:49 Dose: 1 puff Albuterol/Ipratropium (Duoneb 3 Mg/0.5 Mg (3 Ml) Ud) 3 ml INH RTID [facility] Last Admin: 08/27/16 11:45 Dose: 3 ml Amiodarone HCl (Cordarone) 200 mg PO DAILY [facility] Last Admin: 08/27/16 09:41 Dose: 200 mg Clotrimazole (Lotrimin 1% Cream) 1 applic TOP BID [facility] Last Admin: 08/27/16 13:00 Dose: 1 unit Furosemide (Lasix) 40 mg IV BID [facility] Last Admin: 08/27/16 09:42 Dose: 40 mg Hydrocortisone (Cortizone 1% Cream) 1 applic TOP BID [facility] Last Admin: 08/27/16 09:42 Dose: 1 unit Cefazolin Sodium 1 gm/ Sodium (Chloride) 100 mls @ 100 mls/hr IVPB Q8@0500,1300 ,2100 [facility] Last Admin: 08/27/16 12:58 Dose: 100 mls/hr Ceftriaxone Sodium 1 gm/ (Sodium Chloride) 100 mls @ 100 mls/hr IVPB DAILY@ 2100 [facility] Lidocaine (Lidoderm) 1 ea TD DAILY [facility] Last Admin: 08/27/16 09:47 Dose: 1 ea Metolazone (Zaroxolyn) 2.5 mg PO DAILY [facility] Last Admin: 08/27/16 09:49 Dose: 2.5 mg Mupirocin (Bactroban Ointment) 1 applic TOP BID [facility] Last Admin: 08/27/16 09:41 Dose: 1 unit - Labs Labs: 08/27/16 06:00 08/27/16 06:00 PT 25.9 Seconds (9.8-13.1) H 08/26/16 14:30 INR 2.3 (0.9-1.2) H 08/26/16 14:30 - Respiratory Exam Respiratory Exam: Rhonchi - Cardiovascular Exam Cardiovascular Exam: REGULAR RHYTHM, +S1, +S2 - Extremities Exam Additional comments: SIGNIFICANT DECREASE IN LE LEG EDEMA AND REDNESS IS DECREASED - Additional Findings Additional findings: BUN/CR 61/1.7 Assessment and Plan - Assessment and Plan (Free Text) Assessment: ERYSIPELAS S/P ATRIAL FIBRILLATION-NOW IN NSR RISING BUN/CR-PROBABLY PRE-RENAL EFFECT FROM DIURETICS Plan: IV FUROSEMIDE AND ZAROXOLYN DISCONTINUED LEG SWELLING HAS INPROVED AND BUN/ CR ARE INCREASING WILL GIVE ONLY 40 MGS ORAL FUROSEMIDE DAILY OF TOMORROW AND FOLLOW BUN/CR CONTINUE AMIODARONE AND ANTIBIOTICS
--- NOTE | 2016-08-27 14:18 | CP.PCM.PN ---
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 acute distress noted Objective - Vital Signs/Intake and Output Vital Signs (last 24 hours): Temp Pulse Resp BP Pulse Ox 97.2 F L 82 18 122/58 L 99 08/27/16 07:55 08/27/16 09:41 08/27/16 07:55 08/27/16 09:42 08/27/16 07:55 - Medications Medications: Current Medications Acetaminophen (Tylenol 325mg Tab) 650 mg PO Q6 PRN PRN Reason: Pain, moderate (4-7) Albumin Human (Albumin Human 25% (12.5 Gm/50 Ml)) 12.5 gm IV Q8 [facility] Stop: 08/29/16 17:01 Last Admin: 08/27/16 09:40 Dose: 12.5 gm Albuterol (Ventolin Hfa 90 Mcg/Actuation (8 G)) 1 puff INH RQ4 PRN PRN Reason: Shortness of Breath Last Admin: 08/27/16 09:49 Dose: 1 puff Albuterol/Ipratropium (Duoneb 3 Mg/0.5 Mg (3 Ml) Ud) 3 ml INH RTID [facility] Last Admin: 08/27/16 11:45 Dose: 3 ml Amiodarone HCl (Cordarone) 200 mg PO DAILY [facility] Last Admin: 08/27/16 09:41 Dose: 200 mg Clotrimazole (Lotrimin 1% Cream) 1 applic TOP BID [facility] Last Admin: 08/27/16 13:00 Dose: 1 unit Furosemide (Lasix) 40 mg PO DAILY [facility] Hydrocortisone (Cortizone 1% Cream) 1 applic TOP BID [facility] Last Admin: 08/27/16 09:42 Dose: 1 unit Cefazolin Sodium 1 gm/ Sodium (Chloride) 100 mls @ 100 mls/hr IVPB Q8@0500,1300 ,2100 [facility] Last Admin: 08/27/16 12:58 Dose: 100 mls/hr Ceftriaxone Sodium 1 gm/ (Sodium Chloride) 100 mls @ 100 mls/hr IVPB DAILY@ 2100 [facility] Lidocaine (Lidoderm) 1 ea TD DAILY [facility] Last Admin: 08/27/16 09:47 Dose: 1 ea Mupirocin (Bactroban Ointment) 1 applic TOP BID [facility] Last Admin: 08/27/16 09:41 Dose: 1 unit - Labs Labs: 08/27/16 06:00 08/27/16 06:00 PT 25.9 Seconds (9.8-13.1) H 08/26/16 14:30 INR 2.3 (0.9-1.2) H 08/26/16 14:30 - Respiratory Exam Respiratory Exam: NORMAL BREATHING PATTERN - Cardiovascular Exam Cardiovascular Exam: REGULAR RHYTHM - GI/Abdominal Exam Additional comments: Distended - Extremities Exam Additional comments: 2-3+ bipedal edema Assessment and Plan - Assessment and Plan (Free Text) Assessment: CKD Renal function is stable K+ is controlled Liver cirrhosis Plan: Continue to monitor renal function Continue current Mx
[2016-08-27 16:02] VITALS: RESP 20
[2016-08-28] MEDS ORDERED: Albumin Human 25% (12.5 gm/50 ml) IV ONE (00:07)
[2016-08-28] MEDS: Albuterol HFA 90 mcg/actuation (8 g) INH PRN (01:44)
--- NOTE | 2016-08-28 02:12 | CP.PCM.CON ---
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 Lately having rising BUN. Review of Systems - Constitutional Constitutional: absent: Chills - EENT Eyes: absent: Blind Spots Nose/Mouth/Throat: absent: Epistaxis - Cardiovascular Cardiovascular: absent: Chest Pain - Respiratory Respiratory: absent: Cough - Gastrointestinal Gastrointestinal: As Per HPI - Genitourinary Genitourinary: absent: Change in Urinary Stream Past Patient History - Past Medical History & Family History Past Medical History?: Yes - Past Social History Smoking Status: Former Smoker Chewing Tobacco Use: No Cigar Use: No Alcohol: Social Drugs: Denies Home Situation {Lives}: With Family - CARDIAC Hx Atrial Fibrillation: Yes Hx Hypertension: Yes Hx Peripheral Edema: Yes - PULMONARY Hx Respiratory Disorders: No - NEUROLOGICAL Hx Neurological Disorder: No - HEENT Hx HEENT Problems: No - RENAL Hx Chronic Kidney Disease: No - ENDOCRINE/METABOLIC Hx Endocrine Disorders: No - HEMATOLOGICAL/ONCOLOGICAL Hx Blood Disorders: No Hx Human Immunodeficiency Virus (HIV): No - INTEGUMENTARY Hx Dermatological Problems: No - MUSCULOSKELETAL/RHEUMATOLOGICAL Hx Arthritis: Yes Hx Back Pain: Yes Hx Falls: Yes - GASTROINTESTINAL Other/Comment: Liver Cirrhosis with ascites - GENITOURINARY/GYNECOLOGICAL Hx Genitourinary Disorders: No - PSYCHIATRIC Hx Psychophysiologic Disorder: No Hx Substance Use: No - SURGICAL HISTORY Hx Surgeries: Yes Other/Comment: 2000 arthroscopic knee surgery - ANESTHESIA Hx Anesthesia: Yes Hx Anesthesia Reactions: No Hx Malignant Hyperthermia: No Meds Allergies/Adverse Reactions: Allergies Allergy/AdvReac Type Severity Reaction Status Date / Time No Known Allergies Allergy Verified 08/25/16 18:57 - Medications Medications: Current Medications Acetaminophen (Tylenol 325mg Tab) 650 mg PO Q6 PRN PRN Reason: Pain, moderate (4-7) Albuterol (Ventolin Hfa 90 Mcg/Actuation (8 G)) 1 puff INH RQ4 PRN PRN Reason: Shortness of Breath Last Admin: 08/28/16 01:44 Dose: 1 puff Albuterol/Ipratropium (Duoneb 3 Mg/0.5 Mg (3 Ml) Ud) 3 ml INH RTID [facility] Last Admin: 08/27/16 19:50 Dose: 3 ml Amiodarone HCl (Cordarone) 200 mg PO DAILY [facility] Last Admin: 08/27/16 09:41 Dose: 200 mg Clotrimazole (Lotrimin 1% Cream) 1 applic TOP BID [facility] Last Admin: 08/27/16 16:11 Dose: 1 unit Furosemide (Lasix) 40 mg PO DAILY [facility] Hydrocortisone (Cortizone 1% Cream) 1 applic TOP BID [facility] Last Admin: 08/27/16 16:11 Dose: 1 unit Cefazolin Sodium 1 gm/ Sodium (Chloride) 100 mls @ 100 mls/hr IVPB Q8@0500,1300 ,2100 [facility] Last Admin: 08/27/16 22:51 Dose: 100 mls/hr Ceftriaxone Sodium 1 gm/ (Sodium Chloride) 100 mls @ 100 mls/hr IVPB DAILY@ 2100 [facility] Last Admin: 08/27/16 21:42 Dose: 100 mls/hr Lidocaine (Lidoderm) 1 ea TD DAILY [facility] Last Admin: 08/27/16 09:47 Dose: 1 ea Mupirocin (Bactroban Ointment) 1 applic TOP BID [facility] Last Admin: 08/27/16 16:10 Dose: 1 unit Physical Exam - Head Exam Head Exam: NORMAL INSPECTION - Eye Exam Eye Exam: Normal appearance - ENT Exam ENT Exam: Mucous Membranes Moist - Neck Exam Neck exam: Positive for: Normal Inspection - Respiratory Exam Respiratory Exam: NORMAL BREATHING PATTERN - Cardiovascular Exam Cardiovascular Exam: REGULAR RHYTHM, +S1, +S2 - GI/Abdominal Exam GI & Abdominal Exam: Distended, Firm, Normal Bowel Sounds Results - Vital Signs Recent Vital Signs: Last Vital Signs Temp 97.3 F L 08/27/16 19:40 Pulse 80 08/27/16 19:40 Resp 20 08/27/16 19:40 BP 113/51 L 08/27/16 19:40 Pulse Ox 96 08/27/16 19:40 - Labs Result Diagrams: 08/27/16 06:00 08/27/16 06:00 Labs: Laboratory Results - last 24 hr 08/27/16 08/27/16 06:00 06:00 WBC 8.6 RBC 2.60 L Hgb 9.4 L Hct 27.3 L MCV 104.8 H MCH 36.0 H MCHC 34.3 RDW 16.2 H Plt Count 112 L Sodium 140 Potassium 4.8 Chloride 108 H Carbon Dioxide 23 Anion Gap 14 BUN 61 H Creatinine 1.7 H Est GFR ( Amer) 49 Est GFR (Non-Af Amer) 40 Random Glucose 87 Calcium 8.0 L Total Bilirubin 2.3 H AST 60 H ALT 15 L D Alkaline Phosphatase 100 Total Protein 7.7 Albumin 2.5 L Globulin 5.3 H Albumin/Globulin Ratio 0.5 L Assessment & Plan (1) Ascites of liver Assessment and Plan: Large ascites though elevated BUN limiting our ability to aggressively give diuretics. Will give IV albumin and then possibly push diuretics or perform parascentesis. Rocephin started for possible SBP. Salt and fluid restriction Status: Acute - Date & Time Date: 08/27/16 Time: 23:40
--- NOTE | 2016-08-28 03:44 | CP.PCM.PCO ---
Summary - Summary of Event Summary of Event: S: pt c/o abd discomfort O: Vitals:afebrile General: uncomfortable HEENT: EOMI, ALLISON abd: very distended ext: edema, erythema A/P: 71yo M with PMHx cryptogenic cirrhosis -chart reviewed, lasix IV changed to PO recently d/t increasing BUN/Cr, plan for likely thoracentesis -multiple specialists on board including GI -lasix 40mg IV x1 -CBC, CMP, ammonia -on abx for cellulitis and SBP ppx -start lactulose if ammonia elevated for hepatic encephalopathy, titrate for 3 BM daily
[2016-08-28 03:57] LABS: HEMATOCRIT 27.7 % (35.0-51.0); MEAN CELL VOLUME 104.8 fl (80.0-94.0); MEAN CORPUSCULAR HEMOGLOBIN 35.7 pg (27.0-31.0); MEAN CORPUSCULAR HGB CONC 34.1 g/dL (33.0-37.0); RED CELL DISTRIBUTION WIDTH 16.4 % (11.5-14.5); WHITE BLOOD COUNT 7.7 K/uL (4.8-10.8)
[2016-08-28 04:07] LABS: ALB/GLOB RATIO 0.5 (1.0-2.1); BILIRUBIN,TOTAL 2.6 mg/dl (0.2-1.3); POTASSIUM 4.5 MMOL/L (3.6-5.0); TOTAL PROTEIN 7.9 G/DL (6.3-8.2)
[2016-08-28] MEDS: ceFAZolin 1 GM in Sodium Chloride 0.9% 100 ML IVPB SCH (04:38)
[2016-08-28] MEDS: Albuterol-Ipratrop 3 mg / 0.5 (3 ml) UD INH SCH (07:42)
[2016-08-28 07:45] VITALS: BP 121/63; PULSE 92; TEMP 97.2; O2SAT 98
[2016-08-28] MEDS ORDERED: Phytonadione 10 mg/ml Inj (Adult) SC ONE (07:55)
--- NOTE | 2016-08-28 08:07 | PCM.RRTMUL ---
<Chelsy Valero - Last Filed: 08/28/16 08:05> BANKRUPTCY ATTORNEY Nurse Assessment - Situation BANKRUPTCY ATTORNEY Responder Arrival Time:: 04:30 - Vital Signs Blood Pressure:: 121/63 Pulse Rate:: 92 Respiratory Rate:: 20 Temperature:: 97.2 F I.Reason for BANKRUPTCY ATTORNEY - A) Acute Change in Patient: (Select all that apply): Acute change in mental status Subjective: pt c/o distended abdomen - A) Initial Vital Signs: Blood Pressure: 121/63 Pulse Rate: 92 Respiratory Rate: 20 Temperature: 97.2 F O2 Sat by Pulse Oximetry: 98 - B) Neurological Status (Select all that apply): Alert, Verbal - Constitutional Additional Comments: uncomfortable - Head Head Exam: ATRAUMATIC, NORMAL INSPECTION - Eyes Eye Exam: EOMI, PERRL - Respiratory Exam Respiratory Exam: NORMAL BREATHING PATTERN - Cardiovascular Exam Cardiovascular Exam: Irregular Rhythm - GI/Abdominal Exam GI & Abdominal Exam: Distended - Neurological Exam Neurological Exam: Alert - Extremities Exam Extremities Exam: Pedal Edema Additional comments: erythema Plan - B. Assessment of Findings&Treatment Plan 71yo M with PMHx cryptogenic cirrhosis with BANKRUPTCY ATTORNEY initiated for AMS -ammonia 236 -DDx hepatic encephalopathy -chart reviewed, lasix IV changed to PO recently d/t increasing BUN/Cr -multiple specialists on board including GI -lasix 40mg PO this AM, recieved lasix 40mg IV 4 hr ago -on abx for cellulitis and SBP ppx -c/w lactulose, titrate for 3 BM daily. stat dose 40mg PO x1 now -rifaxamin 550mg PO BID -Vitamin K 10mg SC x1 for elevated PT/INR if paracentesis to proceed -may consider transferring to medical floor per primary team <Yajaira Dominguez - Last Filed: 08/28/16 08:32> Attending/Attestation - Attestation I have personally seen and examined this patient.: Yes I have fully participated in the care of the patient.: Yes I have reviewed all pertinent clinical information, including history, physical exam and plan: Yes Notes (Text): BANKRUPTCY ATTORNEY called for AMS Responded to the BANKRUPTCY ATTORNEY with the resident- Dr Valentino Pt seen and examined 71 y/o gent with hx of Cirrhosis, Ammonia level elevated to 286 AMS likely sec to Hepatic Encephalopathy - stat Lactulose 60 ml x 1 then 30ml q4 till 3 BM per day - start Rifaximin -Phytonadione 10 mg SQ for elevated INR - Abdomen distended, tense ascites- would need high volume paracentesis , would need FFP transfusion and Albumin prior to Paracentesis Pt's PMD Dr Stanley mclain thru answering service
[2016-08-28] MEDS: Lidocaine 5% Patch TD SCH (09:08)
--- NOTE | 2016-08-28 09:27 | CP.PCM.PN ---
Objective - Vital Signs/Intake and Output Vital Signs (last 24 hours): Temp Pulse Resp BP Pulse Ox 97.2 F L 92 H 20 121/63 98 08/28/16 08:13 08/28/16 09:07 08/28/16 08:13 08/28/16 09:07 08/28/16 07:44 - Medications Medications: Current Medications Acetaminophen (Tylenol 325mg Tab) 650 mg PO Q6 PRN PRN Reason: Pain, moderate (4-7) Albuterol (Ventolin Hfa 90 Mcg/Actuation (8 G)) 1 puff INH RQ4 PRN PRN Reason: Shortness of Breath Last Admin: 08/28/16 01:44 Dose: 1 puff Albuterol/Ipratropium (Duoneb 3 Mg/0.5 Mg (3 Ml) Ud) 3 ml INH RTID [facility] Last Admin: 08/28/16 07:42 Dose: 3 ml Amiodarone HCl (Cordarone) 200 mg PO DAILY [facility] Last Admin: 08/28/16 09:07 Dose: 200 mg Clotrimazole (Lotrimin 1% Cream) 1 applic TOP BID [facility] Last Admin: 08/27/16 16:11 Dose: 1 unit Furosemide (Lasix) 40 mg PO DAILY [facility] Last Admin: 08/28/16 09:07 Dose: 40 mg Hydrocortisone (Cortizone 1% Cream) 1 applic TOP BID [facility] Last Admin: 08/27/16 16:11 Dose: 1 unit Cefazolin Sodium 1 gm/ Sodium (Chloride) 100 mls @ 100 mls/hr IVPB Q8@0500,1300 ,2100 [facility] Last Admin: 08/28/16 04:38 Dose: 100 mls/hr Ceftriaxone Sodium 1 gm/ (Sodium Chloride) 100 mls @ 100 mls/hr IVPB DAILY@ 2100 [facility] Last Admin: 08/27/16 21:42 Dose: 100 mls/hr Lactulose (Enulose) 20 gm PO TID PRN PRN Reason: Other Last Admin: 08/28/16 04:36 Dose: 20 gm Lidocaine (Lidoderm) 1 ea TD DAILY [facility] Last Admin: 08/28/16 09:08 Dose: 1 ea Mupirocin (Bactroban Ointment) 1 applic TOP BID [facility] Last Admin: 08/27/16 16:10 Dose: 1 unit Rifaximin (Xifaxan) 550 mg PO BID [facility] Last Admin: 08/28/16 09:06 Dose: 550 mg - Labs Labs: 08/28/16 03:54 08/28/16 03:54 PT 25.9 Seconds (9.8-13.1) H 08/26/16 14:30 INR 2.3 (0.9-1.2) H 08/26/16 14:30
--- NOTE | 2016-08-28 21:18 | CP.PCM.PN ---
Subjective - Date & Time of Evaluation Date of Evaluation: 08/28/16 Time of Evaluation: 22:22 - Subjective Subjective: TOP FORMER change in mental status Objective - Vital Signs/Intake and Output Vital Signs (last 24 hours): Temp Pulse Resp BP Pulse Ox 97.2 F L 92 H 20 121/63 98 08/28/16 08:13 08/28/16 09:07 08/28/16 08:13 08/28/16 09:07 08/28/16 07:44 - Labs Labs: 08/28/16 03:54 08/28/16 03:54 PT 25.9 Seconds (9.8-13.1) H 08/26/16 14:30 INR 2.3 (0.9-1.2) H 08/26/16 14:30 - Respiratory Exam Respiratory Exam: NORMAL BREATHING PATTERN - Cardiovascular Exam Cardiovascular Exam: REGULAR RHYTHM - GI/Abdominal Exam GI & Abdominal Exam: Normal Bowel Sounds Assessment and Plan - Assessment and Plan (Free Text) Assessment: Mental status changes Hepatic encephalopathy elevated [place] level Lactulose ABX ??paracentesis Transfer to ER +troponin EKG no changes Cardiology Telemetry CE Cirrhosis Hepatosplenomegaly Portal HTN ascites etiol?? Pancytopenia Low prot/alb s/p paracentesis last admission Lasix Albumin ?? Aldactone CKD? Hepatorenal? GI Nephrology Liver transplant? Lower extremity edema with erythema Leg elevation Lasix Cefazolin ID Podiatry SOB? 2 to ascites Duoneb CXR Lung pefusion scan (low probability) Pulmonary consult appreciated Low back pain etiol? improved Physiatry consult A-fib/ rate controlled Amiodorone INR 2.0 Cardiology
== END 2016-08-28 10:00 | disposition short-term general hospital (02) | DRG 603 ==
LOC: H.TCU 18:58
PROVIDERS: ADMIT Family Medicine Geriatric Medicine; ATTEND Family Medicine Geriatric Medicine
PROC: F08Z4FZ Home Management Treatment using Assistive, Adaptive, Supportive or Protective Equipment (ICD-10-PCS; 2016-08-25)
PROC: 3E0F7GC Introduction of Other Therapeutic Substance into Respiratory Tract, Via Natural or Artificial Opening (ICD-10-PCS; principal; 2016-08-26)
DX: A46 Erysipelas (principal); N17.9 Acute kidney failure, unspecified; D61.818 Other pancytopenia; R18.8 Other ascites; K76.6 Portal hypertension; E87.5 Hyperkalemia; I48.91 Unspecified atrial fibrillation; L03.115 Cellulitis of right lower limb; L03.116 Cellulitis of left lower limb; K74.69 Other cirrhosis of liver; J44.9 Chronic obstructive pulmonary disease, unspecified; I12.9 Hypertensive chronic kidney disease with stage 1 through stage 4 chronic kidney disease, or unspecified chronic kidney disease; I25.10 Atherosclerotic heart disease of native coronary artery without angina pectoris; K72.90 Hepatic failure, unspecified without coma; N18.9 Chronic kidney disease, unspecified; Z87.891 Personal history of nicotine dependence; M19.90 Unspecified osteoarthritis, unspecified site

== ENCOUNTER 2016-08-28 10:00 | Inpatient (IN) | payer MEDICARE, BC ==
[2016-08-28 10:00] VITALS: PULSE 82; BMI 38.0
[2016-08-28] MEDS ORDERED: Sodium Chloride 0.9% 500 ML IV STA ×2 (10:37→11:02)
--- NOTE | 2016-08-28 10:42 | ED PDOC ---
HPI: General Adult Time Seen by Provider: 08/28/16 10:36 Chief Complaint (Nursing): Altered Mental Status Chief Complaint (Provider): Altered mental status History Per: Patient, Other (notes) History/Exam Limitations: clinical condition Onset/Duration Of Symptoms: Days (Today) Current Symptoms Are (Timing): Still Present Additional Complaint(s): Pt. was admitted to the hospital for cellulitis and swelling of legs and abd. Put in TCU and today morning pt. found to be altered mental satus. Confused. Last known more coherent last night. Past Medical History Reviewed: Nursing Documentation, Vital Signs Vital Signs: Last Vital Signs Temp 98.3 F 08/28/16 10:12 Pulse 89 08/28/16 10:12 Resp 17 08/28/16 10:12 BP 112/57 L 08/28/16 10:12 Pulse Ox 99 08/28/16 12:51 - Medical History PMH: Arthritis, Atrial Fibrillation, Back Problems (Chronic), HTN, Peripheral Edema Denies: HIV, Chronic Kidney Disease Other PMH: liver disease - Family History Family History: States: Unknown Family Hx - Social History Current smoker - smoking cessation education provided: No Alcohol: None Drugs: Denies - Home Medications Home Medications: Ambulatory Orders Medication Instructions Recorded Albuterol/Ipratropium [Duoneb 3 3 ml IH TID 08/28/16 MG/3 Ml-0.5 MG/3 Ml 3 Ml] Amiodarone Hydrochloride 200 mg PO DAILY 08/28/16 [Cordarone] Aspirin [Ecotrin] 81 mg PO DAILY 08/28/16 Furosemide [Lasix] 40 mg IV BID 08/28/16 Hydrocortisone 1% Cream [Cortizone 1 % TP BID 08/28/16 1% Cream] Lidocaine 5% [Lidoderm] 1 patch TP DAILY 08/28/16 metOLazone [Zaroxolyn] 2.5 mg PO DAILY 08/28/16 - Allergies Allergies/Adverse Reactions: Allergies Allergy/AdvReac Type Severity Reaction Status Date / Time No Known Allergies Allergy Verified 08/28/16 10:03 Review of Systems Review Of Systems: ROS cannot be obtained secondary to pt's inabilty to answer questions. Physical Exam - Reviewed Nursing Documentation Reviewed: Yes Vital Signs Reviewed: Yes - Physical Exam Appears: Positive for: No Acute Distress Head Exam: Positive for: ATRAUMATIC, NORMAL INSPECTION, NORMOCEPHALIC Skin: Positive for: Warm Eye Exam: Positive for: PERRL. Negative for: EOMI (not following commands) ENT: Positive for: Normal ENT Inspection Neck: Positive for: Normal, Painless ROM, Supple Cardiovascular/Chest: Positive for: Regular Rate, Rhythm, Edema (b/l lower extremities) Respiratory: Positive for: Normal Breath Sounds. Negative for: Wheezing Gastrointestinal/Abdominal: Positive for: Tenderness (mild diffuse), Distended. Negative for: Guarding Back: Positive for: Normal Inspection. Negative for: L CVA Tenderness, R CVA Tenderness Extremity: Positive for: Pedal Edema (b/l with erythema) Neurologic/Psych: Positive for: Alert, Other (moving extremities on his own will ; not following commands). Negative for: Oriented - Laboratory Results Result Diagrams: 08/28/16 11:07 08/28/16 11:07 Interpretation Of Abn Labs: 59/1.6 bun/cr; 94 ammonia; 0.2660 trop - ECG ECG Rhythm: Positive for: Sinus Rhythm, Nonspecific Changes O2 Sat by Pulse Oximetry: 99 Pulse Ox Interpretation: Normal - Radiology X-Ray: Read By Radiologist X-Ray Interpretation: No Acute Disease - CT Scan/US ct head Other Rad Studies (CT/US): Read By Radiologist Other Rad Interpretation: no acute - Progress ED Course And Treament: 1249: Stable. Will need admit for paracentisis. EKG same as old. Ammonia level improving. Continue meds and lactulose he is getting already. 1316: Stable. Spoke with Dr. Angel. Will admit. Continue care. Wants Dr. Briggs consult. He will give further orders when pt. reaches floor. Pt. more awake. 1415: Stable. Spoke with Drs. Kyle and Tanna. Aware of presentation. Continue care. Disposition - Clinical Impression Clinical Impression: Hepatic encephalopathy, Elevated troponin - Patient ED Disposition Is Patient to be Admitted: Yes Counseled Patient/Family Regarding: Studies Performed, Diagnosis - Disposition Disposition Time: 14:19 Condition: FAIR - Pt Status Changed To: Hospital Disposition Of: Inpatient - Admit Certification Admit to Inpatient:: After my assessment, the patient will require hospitalization for at least two midnights. This is because of the severity of symptoms shown, intensity of services needed, and/or the medical risk in this patient being treated as an outpatient. - POA Present On Arrival: None
--- NOTE | 2016-08-28 11:27 | RAD ---
HISTORY: altered mental status COMPARISON: No prior. FINDINGS: LUNGS: No active pulmonary disease. PLEURA: No significant pleural effusion identified, no pneumothorax apparent. CARDIOVASCULAR: Normal. OSSEOUS STRUCTURES: No significant abnormalities. VISUALIZED UPPER ABDOMEN: Normal. OTHER FINDINGS: None. IMPRESSION: No active disease.
[2016-08-28 11:32] LABS: BASO % 0.4 % (0.0-2.0); EOS # 0.1 K/uL (0.0-0.7); EOS % 1.3 % (0.0-4.0); LYMPH # 0.9 K/uL (1.0-4.3); LYMPH % 11.9 % (20.0-40.0); MEAN CELL VOLUME 106.1 fl (80.0-94.0); MEAN PLATELET VOLUME 8.9 fl (7.2-11.7); MONO # 0.9 K/uL (0.0-0.8); MONO % 12.1 % (0.0-10.0); NEUT # 5.5 K/uL (1.8-7.0); NEUT % 74.3 % (50.0-75.0); NRBC % 0.3 % (0.0-0.0); WHITE BLOOD COUNT 7.4 K/uL (4.8-10.8)
[2016-08-28 11:37] LABS: ALB/GLOB RATIO 0.5 (1.0-2.1); BILIRUBIN,TOTAL 2.6 mg/dl (0.2-1.3); CALCIUM 8.1 mg/dL (8.4-10.2); POTASSIUM 4.3 MMOL/L (3.6-5.0); TOTAL PROTEIN 7.7 G/DL (6.3-8.2)
[2016-08-28 11:56] LABS: TROPONIN I 0.266 ng/mL (0.00-0.120)
--- NOTE | 2016-08-28 12:38 | CT ---
PROCEDURE: CT HEAD WITHOUT CONTRAST. HISTORY: headache COMPARISON: None available. TECHNIQUE: Axial computed tomography images were obtained through the head/brain without intravenous contrast. Radiation dose: Total exam DLP = 8432 mGy-cm. This CT exam was performed using one or more of the following dose reduction techniques: Automated exposure control, adjustment of the mA and/or kV according to patient size, and/or use of iterative reconstruction technique. FINDINGS: HEMORRHAGE: No intracranial hemorrhage. BRAIN: No mass effect or edema. No atrophy or chronic microvascular ischemic changes. VENTRICLES: Unremarkable. No hydrocephalus. CALVARIUM: Unremarkable. PARANASAL SINUSES: Unremarkable as visualized. No significant inflammatory changes. MASTOID AIR CELLS: Unremarkable as visualized. No inflammatory changes. OTHER FINDINGS: Limited by patient motion artifact. IMPRESSION: No gross intracranial hemorrhage.
--- NOTE | 2016-08-28 14:56 | CARD ---
APPROVED REPORT EKG Measurement Heart [id number] <Conclusion> Normal sinus rhythm Left anterior fascicular block Possible Lateral infarct, age undetermined Abnormal ECG
--- NOTE | 2016-08-28 15:08 | CP.PCM.CON ---
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 HE WAS ADMITTED TO [facility] RECENTLY WITH BILATERAL LE EDEMA AND CELLULITIS AND WAS TREATED WITH IV ANTIBIOTICS AND DIURETICS AND WAS THEN SENT TO TCU TO FINISH HIS ANTIBIOTIC REGIMEN AND THE CELLILITIS IMPROVED MUCH AND HE WOULD PROBABLY BE DISCHARGED SOON. BUT, THIS MORNING HE HAD AN ALTERED MENTAL STATUS WITH CONFUSION AND WAS DISCHARGED FROM TCU AND SENT TO THE ER. HE HAD A HIGH AMMONIA LEVEL AND WAS TREATED WITH LACTULOSE AND IMPROVED SOMEWHAT AND WAS THEN ADMITTED TO [facility] AGAIN FOR HEPATIC ENCEPHALOPATHY. CARDIOLOGY WAS CALLED DUE TO HIS CARDIAC RHYTHM HISTORY BUT ALSO DUE TO A MILDLY ELEVATED TROPONIN. HE DENIES CHEST PAIN, PALPITATIONS OR SOB. HE DOES NOT HAVE A HISTORY OF CAD. Past Patient History - Past Medical History & Family History Past Medical History?: Yes - Past Social History Alcohol: None Drugs: Denies - CARDIAC Hx Atrial Fibrillation: Yes Hx Hypertension: Yes Hx Peripheral Edema: Yes - PULMONARY Hx Respiratory Disorders: No - NEUROLOGICAL Hx Neurological Disorder: No - HEENT Hx HEENT Problems: No - RENAL Hx Chronic Kidney Disease: No - ENDOCRINE/METABOLIC Hx Endocrine Disorders: No - HEMATOLOGICAL/ONCOLOGICAL Hx Human Immunodeficiency Virus (HIV): No - INTEGUMENTARY Hx Dermatological Problems: No - MUSCULOSKELETAL/RHEUMATOLOGICAL Hx Arthritis: Yes - GASTROINTESTINAL Other/Comment: Liver Cirrhosis with ascites - GENITOURINARY/GYNECOLOGICAL Hx Genitourinary Disorders: No - PSYCHIATRIC Hx Psychophysiologic Disorder: No Hx Substance Use: No - SURGICAL HISTORY Hx Surgeries: Yes Other/Comment: 2000 arthroscopic knee surgery - ANESTHESIA Hx Anesthesia: Yes Hx Anesthesia Reactions: No Hx Malignant Hyperthermia: No Meds Allergies/Adverse Reactions: Allergies Allergy/AdvReac Type Severity Reaction Status Date / Time No Known Allergies Allergy Verified 08/28/16 10:03 - Medications Medications: Current Medications Sodium Chloride (Sodium Chloride 0.9%) 500 mls @ 100 mls/hr IV .Q5H [facility] Stop: 08/28/16 16:01 Last Admin: 08/28/16 11:26 Dose: 100 mls/hr Physical Exam - Respiratory Exam Respiratory Exam: Rhonchi - Cardiovascular Exam Cardiovascular Exam: REGULAR RHYTHM, +S1, +S2, Systolic Murmur - Extremities Exam Additional comments: BILATERAL LE EDEMA AND CELLULITIS BUT MUCH IMPROVED THAN ON RECENT [facility] ADMISSION - Neurological Exam Additional comments: NOW AWAKE, HE RECOGNIZED ME AND HE WAS ORIENTED X 3 - Additional Findings Additional findings: EKG NSR, NO ACUTE CHANGES TROPONIN 2.26 BUN/CR 59/1.6 K+ 4.3 AMMONIA LEVEL 94 INR 2.3 Results - Vital Signs Recent Vital Signs: Last Vital Signs Temp 98.3 F 08/28/16 10:12 Pulse 89 08/28/16 10:12 Resp 17 08/28/16 10:12 BP 112/57 L 08/28/16 10:12 Pulse Ox 99 08/28/16 14:19 - Labs Result Diagrams: 08/28/16 11:07 08/28/16 11:07 Assessment & Plan - Assessment and Plan (Free Text) Assessment: CIRRHOSIS OF THE LIVER WITH HEPATIC ENCEPHALOPATHY ATRIAL FIBRILLATION HISTORY-REMAINS IN SINUS RHYTHM CELLULITIS OF THE LOWER EXTREMITIES-IMPROVED RENAL INSUFFICIENCY MILDLY ELEVATED TROPONIN MOST PROBABLY FROM RENAL INSUFFICIENCY SINCE HE IS CHEST PAIN FREE AND DOESN'T HAVE ANY NEW CHANGES ON HIS EKG Plan: THE PATIENT WAS ADMITTED TO ON TELEMETRY HE WAS GIVEN LACTULOSE AND ASPIRIN IN THE ER AND IV FLUIDS O2 VIA [place], ASPIRIN AMIODARONE WILL BE HELD AT THE PRESENT TIME DUE TO THE HEPATIC ENCEPHALOPATHY THE PATIENT IS AUTOANTICOAGULATED WITH AN INR OF 2.3 GI TO SEE
[2016-08-28] MEDS ORDERED: Albumin Human 25% (12.5 gm/50 ml) IV ONE (17:40)
--- NOTE | 2016-08-28 17:55 | CP.PCM.CON ---
History of Present Illness - History of Present Illness History of Present Illness: Patient with cryptogenic cirrhosis. Earlier was confused and was found to have very high ammonia level Review of Systems - Review of Systems Systems not reviewed;Unavailable: Altered Mental Status Past Patient History - Past Medical History & Family History Past Medical History?: Yes - Past Social History Smoking Status: Former Smoker - CARDIAC Hx Cardiac Disorders: Yes Hx Atrial Fibrillation: Yes Hx Hypertension: Yes Hx Peripheral Edema: Yes - PULMONARY Hx Respiratory Disorders: No - NEUROLOGICAL Hx Neurological Disorder: No - HEENT Hx HEENT Problems: No - RENAL Hx Chronic Kidney Disease: No - ENDOCRINE/METABOLIC Hx Endocrine Disorders: No - HEMATOLOGICAL/ONCOLOGICAL Hx Blood Disorders: No Hx AIDS: No Hx Human Immunodeficiency Virus (HIV): No - INTEGUMENTARY Hx Dermatological Problems: No - MUSCULOSKELETAL/RHEUMATOLOGICAL Hx Musculoskeletal Disorders: Yes Hx Arthritis: Yes Hx Falls: Yes - GASTROINTESTINAL Hx Gastrointestinal Disorders: Yes Other/Comment: Liver Cirrhosis with ascites - GENITOURINARY/GYNECOLOGICAL Hx Genitourinary Disorders: No - PSYCHIATRIC Hx Psychophysiologic Disorder: No Hx Substance Use: No - SURGICAL HISTORY Hx Surgeries: Yes Other/Comment: 2000 arthroscopic knee surgery - ANESTHESIA Hx Anesthesia: Yes Hx Anesthesia Reactions: No Hx Malignant Hyperthermia: No Has any member of the family had a problem w/ anesthesia?: No Meds Allergies/Adverse Reactions: Allergies Allergy/AdvReac Type Severity Reaction Status Date / Time No Known Allergies Allergy Verified 08/28/16 10:03 - Medications Medications: Current Medications Furosemide (Lasix) 40 mg IVP BID [facility] Last Admin: 08/28/16 17:39 Dose: 40 mg Ceftriaxone Sodium 1 gm/ (Sodium Chloride) 100 mls @ 100 mls/hr IVPB DAILY [facility] Lactulose (Enulose) 20 gm PO BID [facility] Last Admin: 08/28/16 17:39 Dose: 20 gm Physical Exam - Constitutional Appears: Agitated - Head Exam Head Exam: ATRAUMATIC - Eye Exam Eye Exam: Normal appearance - Respiratory Exam Respiratory Exam: Clear to Auscultation Bilateral - Cardiovascular Exam Cardiovascular Exam: REGULAR RHYTHM - GI/Abdominal Exam GI & Abdominal Exam: Distended, Firm, Normal Bowel Sounds Results - Vital Signs Recent Vital Signs: Last Vital Signs Temp 98.5 F 08/28/16 15:31 Pulse 80 08/28/16 15:41 Resp 20 08/28/16 15:41 BP 109/60 08/28/16 17:39 Pulse Ox 98 08/28/16 15:31 - Labs Result Diagrams: 08/28/16 11:07 08/28/16 11:07 Assessment & Plan (1) Ascites of liver Assessment and Plan: Patient getting Lasix and albumin now and possible parascentesis tomorrow. Continue Lactose Rocephin Status: Acute
[2016-08-28] MEDS ORDERED: Piperacillin/Tazobact 3.375 GM in Sodium Chloride 0.9% 100 ML IVPB STA (23:56)
[2016-08-29] MEDS: Dextrose 5%/0.45% NS 1,000 ML IV SCH (00:49)
[2016-08-29 07:42] LABS: BASO % 0.5 % (0.0-2.0); EOS # 0.4 K/uL (0.0-0.7); EOS % 4.4 % (0.0-4.0); HEMATOCRIT 27.6 % (35.0-51.0); LYMPH # 1.1 K/uL (1.0-4.3); LYMPH % 12.8 % (20.0-40.0); MEAN CELL VOLUME 106.1 fl (80.0-94.0); MEAN CORPUSCULAR HEMOGLOBIN 35.4 pg (27.0-31.0); MEAN CORPUSCULAR HGB CONC 33.3 g/dL (33.0-37.0); MEAN PLATELET VOLUME 8.5 fl (7.2-11.7); MONO # 1.1 K/uL (0.0-0.8); MONO % 13.1 % (0.0-10.0); NEUT # 5.8 K/uL (1.8-7.0); NEUT % 69.2 % (50.0-75.0); RED CELL DISTRIBUTION WIDTH 17.6 % (11.5-14.5); WHITE BLOOD COUNT 8.4 K/uL (4.8-10.8)
[2016-08-29] MEDS: Albuterol-Ipratrop 3 mg / 0.5 (3 ml) UD IH SCH ×4 (07:49→19:17)
[2016-08-29 07:50] LABS: ALB/GLOB RATIO 0.5 (1.0-2.1); BILIRUBIN,TOTAL 3.5 mg/dl (0.2-1.3); POTASSIUM 3.8 MMOL/L (3.6-5.0); TOTAL PROTEIN 7.7 G/DL (6.3-8.2)
--- NOTE | 2016-08-29 07:55 | CP.PCM.PN ---
Subjective - Date & Time of Evaluation Date of Evaluation: 08/29/16 Time of Evaluation: 07:52 - Subjective Subjective: 71 y/o male pt seen at bedside for f/u of resolving bilateral lower extremity edema and erythema. Pt seen resting comfortably in bed at time of visit. Denies any pain or discomfort to the lower extremities at this time. Denies any acute overnight events. Denies f/n/v/c/sp however does complain of a persistent cough and abdominal pain. Objective - Vital Signs/Intake and Output Vital Signs (last 24 hours): Temp Pulse Resp BP Pulse Ox 97.4 F L 80 18 114/50 L 98 08/29/16 05:10 08/29/16 05:10 08/29/16 05:10 08/29/16 05:10 08/29/16 05:10 - Medications Medications: Current Medications Albuterol/Ipratropium (Duoneb 3 Mg/0.5 Mg (3 Ml) Ud) 3 ml IH RTID [facility] Last Admin: 08/29/16 07:49 Dose: 3 ml Amiodarone HCl (Cordarone) 200 mg PO DAILY [facility] Furosemide (Lasix) 40 mg IVP BID [facility] Last Admin: 08/28/16 17:39 Dose: 40 mg Hydrocortisone (Cortizone 1% Cream) 1 applic TOP BID [facility] Ceftriaxone Sodium 1 gm/ (Sodium Chloride) 100 mls @ 100 mls/hr IVPB DAILY [facility] Dextrose/Sodium Chloride (Dextrose 5%/0.45% Ns 1000 Ml) 1,000 mls @ 30 mls/hr IV .Q24H [facility] Stop: 08/29/16 23:55 Last Admin: 08/29/16 00:49 Dose: 30 mls/hr Lactulose (Enulose) 20 gm PO BID [facility] Last Admin: 08/28/16 17:39 Dose: 20 gm Lidocaine (Lidoderm) 1 ea TD DAILY [facility] Metolazone (Zaroxolyn) 2.5 mg PO DAILY [facility] - Labs Labs: PT 26.3 Seconds (9.8-13.1) H 08/28/16 11:07 INR 2.3 (0.9-1.2) H 08/28/16 11:07 APTT 42.0 Seconds (25.6-37.1) H 08/28/16 11:07 - Constitutional Appears: Well, Non-toxic, No Acute Distress - Extremities Exam Additional comments: VASC: DP/PT pulses are palpable, SAVINGS TELLER: < 3sec to all digits, TG: warm to cool, minimal edema and erythema noted distal to the knee on left, right leg resolved erythema resolving from yesterday DERM: mildly Sharply demarkated erythema, healing and resolving blisters noted to anterior left ankle, dry scaling skin lesions on anterior shins b/l, no abscess formation, no purulence, no probe to bone, no drainage, no malodor NEURO: Grossly intact ORTHO: no pain on palpation of the calf b/l - Neurological Exam Neurological Exam: Alert, Awake, Oriented x3 - Psychiatric Exam Psychiatric exam: Normal Affect, Normal Mood Assessment and Plan - Assessment and Plan (Free Text) Assessment: 71 y/o male seen at bedside for bilateral leg edema and erythema secondary to possible vasculitis and erysipelas, resolving Plan: Pt seen and evaluated labs and vitals reviewed discussed in detail with attending Dr. Clemens dressing removed, cont. with hydrocortisone cream to legs daily Continue IV abx (rocephin) Podiatry will continue to follow while in-house
[2016-08-29 08:03] LABS: TROPONIN I 0.273 ng/mL (0.00-0.120)
[2016-08-29] MEDS: metOLazone 2.5 MG TAB PO SCH (08:31)
[2016-08-29] MEDS: Lidocaine 5% Patch TD SCH (09:00)
--- NOTE | 2016-08-29 11:36 | CP.PCM.PN ---
Subjective - Date & Time of Evaluation Date of Evaluation: 08/29/16 Time of Evaluation: 09:00 - Subjective Subjective: NO CHEST PAIN OR SOB COMPLAINS OF DISCOMFORT FROM ABDOMINAL SWELLING Objective - Vital Signs/Intake and Output Vital Signs (last 24 hours): Temp Pulse Resp BP Pulse Ox 98.4 F 81 18 125/42 L 97 08/29/16 08:00 08/29/16 08:31 08/29/16 08:00 08/29/16 08:31 08/29/16 08:00 - Medications Medications: Current Medications Albumin Human (Albumin Human 25% (12.5 Gm/50 Ml)) 12.5 gm IV Q8 [facility] Stop: 08/31/16 01:01 Albuterol/Ipratropium (Duoneb 3 Mg/0.5 Mg (3 Ml) Ud) 3 ml IH RTID [facility] Last Admin: 08/29/16 07:49 Dose: 3 ml Amiodarone HCl (Cordarone) 200 mg PO DAILY [facility] Last Admin: 08/29/16 08:31 Dose: 200 mg Furosemide (Lasix) 40 mg IVP BID [facility] Last Admin: 08/28/16 17:39 Dose: 40 mg Hydrocortisone (Cortizone 1% Cream) 1 applic TOP BID [facility] Last Admin: 08/29/16 08:32 Dose: 1 applic Ceftriaxone Sodium 1 gm/ (Sodium Chloride) 100 mls @ 100 mls/hr IVPB DAILY [facility] Last Admin: 08/29/16 08:30 Dose: 100 mls/hr Dextrose/Sodium Chloride (Dextrose 5%/0.45% Ns 1000 Ml) 1,000 mls @ 30 mls/hr IV .Q24H [facility] Stop: 08/29/16 23:55 Last Admin: 08/29/16 00:49 Dose: 30 mls/hr Lactulose (Enulose) 20 gm PO BID [facility] Last Admin: 08/29/16 08:32 Dose: 20 gm Lidocaine (Lidoderm) 1 ea TD DAILY [facility] Metolazone (Zaroxolyn) 2.5 mg PO DAILY [facility] Last Admin: 08/29/16 08:31 Dose: 2.5 mg - Labs Labs: 08/29/16 05:30 08/29/16 05:30 PT 26.3 Seconds (9.8-13.1) H 08/28/16 11:07 INR 2.3 (0.9-1.2) H 08/28/16 11:07 APTT 42.0 Seconds (25.6-37.1) H 08/28/16 11:07 - Respiratory Exam Respiratory Exam: Clear to Ausculation Bilateral - Cardiovascular Exam Cardiovascular Exam: REGULAR RHYTHM, +S1, +S2 - GI/Abdominal Exam Additional comments: ASCITES - Additional Findings Additional findings: BUN/ CR 61/1.5 GFR 46 K+ 3.8 WBC 8.4 SECOND TROPONIN 2.7 Assessment and Plan - Assessment and Plan (Free Text) Assessment: LIVER CIRRHOSIS WITH ASCITES AND ENCEPHALOPATHY S/P ATRIAL FIBRILLATION-REMAINS IN SINUS RHYTHM RENAL FAILURE ELEVATED TROPONINS MOST LIKELY FROM RENAL FAILURE Plan: CONTINUE LACTULOSE AND ANTIBIOTICS FOR PARACENTESIS
[2016-08-29] MEDS ORDERED: Lidocaine 1% Inj (20ml) ONE (12:19)
--- NOTE | 2016-08-29 12:47 | PCM.SURG1 ---
Surgeon's Initial Post Op Note - Surgeon's Notes Surgeon: Meek Bolaños MD Travel Counselor: None Type of Anesthesia: Local Pre-Operative Diagnosis: Ascites, cirrhosis Operative Findings: US showed large amount of ascites Post-Operative Diagnosis: Ascites Operation Performed: US guided paracentesis. Specimen/Specimens Removed: 3.6 liters of yellow colored fluid. Estimated Blood Loss: EBL {In ML}: 0 Blood Products Given: N/A Drains Used: No Drains Post-Op Condition: Fair Date of Surgery/Procedure: 08/29/16 Time of Surgery/Procedure: 12:45
[2016-08-29 13:14] LABS: BODY FLUID TYPE PERITONEAL/ASCITES
[2016-08-29 13:50] LABS: LDH,BODY FLUID 245 IU (NONE ESTABLISHED)
[2016-08-29] MEDS: Albumin Human 25% (12.5 gm/50 ml) IV SCH ×2 (14:37→16:50)
[2016-08-29 14:49] LABS: BF GROSS APPEARANCE CLEAR (CLEAR); BODY FLUID TOTAL COUNT 100 (0-0)
--- NOTE | 2016-08-29 21:13 | CP.PCM.HP ---
History of Present Illness - History of Present Illness History of Present Illness: 71 yo admitted for cirrhosis and hepatic encephalopathy Present on Admission - Present on Admission Any Indicators Present on Admission: No Past Patient History - Past Medical History & Family History Past Medical History?: Yes - Past Social History Smoking Status: Former Smoker - CARDIAC Hx Cardiac Disorders: Yes Hx Atrial Fibrillation: Yes Hx Hypertension: Yes Hx Peripheral Edema: Yes - PULMONARY Hx Respiratory Disorders: No - NEUROLOGICAL Hx Neurological Disorder: No - HEENT Hx HEENT Problems: No - RENAL Hx Chronic Kidney Disease: No - ENDOCRINE/METABOLIC Hx Endocrine Disorders: No - HEMATOLOGICAL/ONCOLOGICAL Hx Blood Disorders: No Hx AIDS: No Hx Human Immunodeficiency Virus (HIV): No - INTEGUMENTARY Hx Dermatological Problems: No - MUSCULOSKELETAL/RHEUMATOLOGICAL Hx Musculoskeletal Disorders: Yes Hx Arthritis: Yes Hx Falls: Yes - GASTROINTESTINAL Hx Gastrointestinal Disorders: Yes Other/Comment: Liver Cirrhosis with ascites - GENITOURINARY/GYNECOLOGICAL Hx Genitourinary Disorders: No - PSYCHIATRIC Hx Psychophysiologic Disorder: No Hx Substance Use: No - SURGICAL HISTORY Hx Surgeries: Yes Other/Comment: 2000 arthroscopic knee surgery - ANESTHESIA Hx Anesthesia: Yes Hx Anesthesia Reactions: No Hx Malignant Hyperthermia: No Has any member of the family had a problem w/ anesthesia?: No Meds Allergies/Adverse Reactions: Allergies Allergy/AdvReac Type Severity Reaction Status Date / Time No Known Allergies Allergy Verified 08/28/16 10:03 Physical Exam - Respiratory Exam Respiratory Exam: NORMAL BREATHING PATTERN - Cardiovascular Exam Cardiovascular Exam: REGULAR RHYTHM - GI/Abdominal Exam GI & Abdominal Exam: Normal Bowel Sounds Results - Vital Signs Recent Vital Signs: Last Vital Signs Temp 97.5 F L 08/29/16 19:56 Pulse 75 08/29/16 19:56 Resp 18 08/29/16 19:56 BP 98/52 L 08/29/16 19:56 Pulse Ox 95 08/29/16 19:56 - Labs Result Diagrams: 08/29/16 05:30 08/29/16 05:30 Labs: Laboratory Results - last 24 hr 08/29/16 08/29/16 08/29/16 05:30 05:30 11:15 WBC 8.4 RBC 2.60 L Hgb 9.2 L Hct 27.6 L MCV 106.1 H MCH 35.4 H MCHC 33.3 RDW 17.6 H Plt Count 108 L MPV 8.5 Neut % (Auto) 69.2 Lymph % (Auto) 12.8 L [place] % (Auto) 13.1 H Eos % (Auto) 4.4 H Baso % (Auto) 0.5 Neut # 5.8 Lymph # 1.1 [place] # 1.1 H Eos # 0.4 Baso # 0.0 PT 25.8 H INR 2.3 H Sodium 145 Potassium 3.8 Chloride 110 H Carbon Dioxide 25 Anion Gap 14 BUN 61 H Creatinine 1.5 Est GFR ( Amer) 56 Est GFR (Non-Af Amer) 46 Random Glucose 86 Calcium 8.0 L Total Bilirubin 3.5 H AST 58 ALT 19 L D Alkaline Phosphatase 81 Troponin I 0.2730 H* Total Protein 7.7 Albumin 2.5 L Globulin 5.1 H Albumin/Globulin Ratio 0.5 L Fluid Source Fluid Appearance Fluid WBC Fluid RBC Fluid Tot Cell Count Fluid Neutrophils Fluid Lymphocytes Fld Monocyte/Macrophag Fluid Total Protein Fluid LDH Fluid Comment 08/29/16 08/29/16 08/29/16 12:41 12:41 19:46 WBC RBC Hgb Hct MCV MCH MCHC RDW Plt Count MPV Neut % (Auto) Lymph % (Auto) [place] % (Auto) Eos % (Auto) Baso % (Auto) Neut # Lymph # [place] # Eos # Baso # PT INR Sodium Potassium Chloride Carbon Dioxide Anion Gap BUN Creatinine Est GFR ( Amer) Est GFR (Non-Af Amer) Random Glucose Calcium Total Bilirubin AST ALT Alkaline Phosphatase Troponin I 0.2480 H* Total Protein Albumin Globulin Albumin/Globulin Ratio Fluid Source Peritoneal/ascites Fluid Appearance Clear Fluid WBC 106.0 Fluid RBC 66.0 H Fluid Tot Cell Count 100 H Fluid Neutrophils 28.0 H Fluid Lymphocytes 62.0 H Fld Monocyte/Macrophag 10 H Fluid Total Protein < 2.0 Fluid LDH 245 Fluid Comment Yellow Assessment & Plan - Assessment and Plan (Free Text) Assessment: Cirrhosis Hepatosplenomegaly Hepatic encephalopathy Portal HTN ascites etiol?? Pancytopenia Low prot/alb s/p paracentesis Lasix Albumin ?? Aldactone CKD? Hepatorenal? GI Nephrology Liver transplant? +troponin EKG no changes 2 to Renal dx Cardiology Telemetry CE ] Lower extremity edema with erythema Leg elevation Lasix Cefazolin ID Podiatry SOB? 2 to ascites Duoneb CXR Lung pefusion scan (low probability) Pulmonary Low back pain etiol? improved Physiatry consult A-fib/ rate controlled Amiodorone INR 2.0 Cardiology - Date & Time Date: 08/29/16 Time: 22:22
--- NOTE | 2016-08-29 23:09 | CP.PCM.PN ---
Subjective - Date & Time of Evaluation Date of Evaluation: 08/29/16 Time of Evaluation: 17:00 - Subjective Subjective: Patient s/p parascentesis earlier. Has been receiving albumin Objective - Vital Signs/Intake and Output Vital Signs (last 24 hours): Temp Pulse Resp BP Pulse Ox 97.5 F L 75 18 98/52 L 95 08/29/16 19:56 08/29/16 19:56 08/29/16 19:56 08/29/16 19:56 08/29/16 19:56 Intake and Output: 08/29/16 08/30/16 18:59 06:59 Intake Total 596 Output Total 1 Balance 595 - Medications Medications: Current Medications Albumin Human (Albumin Human 25% (12.5 Gm/50 Ml)) 12.5 gm IV Q8 [facility] Stop: 08/31/16 01:01 Last Admin: 08/29/16 16:50 Dose: 12.5 gm Albuterol/Ipratropium (Duoneb 3 Mg/0.5 Mg (3 Ml) Ud) 3 ml IH RTID [facility] Last Admin: 08/29/16 19:17 Dose: 3 ml Furosemide (Lasix) 40 mg IVP BID [facility] Last Admin: 08/29/16 16:50 Dose: 40 mg Hydrocortisone (Cortizone 1% Cream) 1 applic TOP BID [facility] Last Admin: 08/29/16 16:51 Dose: Not Given Ceftriaxone Sodium 1 gm/ (Sodium Chloride) 100 mls @ 100 mls/hr IVPB DAILY [facility] Last Admin: 08/29/16 08:30 Dose: 100 mls/hr Dextrose/Sodium Chloride (Dextrose 5%/0.45% Ns 1000 Ml) 1,000 mls @ 30 mls/hr IV .Q24H [facility] Stop: 08/29/16 23:55 Last Admin: 08/29/16 00:49 Dose: 30 mls/hr Lactulose (Enulose) 20 gm PO BID [facility] Last Admin: 08/29/16 16:51 Dose: 20 gm Lidocaine (Lidoderm) 1 ea TD DAILY [facility] Last Admin: 08/29/16 09:00 Dose: Not Given Metolazone (Zaroxolyn) 2.5 mg PO DAILY [facility] Last Admin: 08/29/16 08:31 Dose: 2.5 mg - Labs Labs: 08/29/16 05:30 08/29/16 05:30 PT 25.8 Seconds (9.8-13.1) H 08/29/16 11:15 INR 2.3 (0.9-1.2) H 08/29/16 11:15 APTT 42.0 Seconds (25.6-37.1) H 08/28/16 11:07 - Head Exam Head Exam: ATRAUMATIC - Eye Exam Eye Exam: Normal appearance - ENT Exam ENT Exam: Mucous Membranes Moist - Respiratory Exam Respiratory Exam: Clear to Ausculation Bilateral - Cardiovascular Exam Cardiovascular Exam: +S1, +S2 - GI/Abdominal Exam GI & Abdominal Exam: Distended Assessment and Plan (1) Ascites of liver Assessment & Plan: Liver cirrhosis with elevated BUM. Hadad parascentesis earlier. Will coninue albumin and diuretics. Follow BUN. Na/water restriction. Folllow renal and liver functions. Status: Acute
[2016-08-30] MEDS: Albumin Human 25% (12.5 gm/50 ml) IV SCH ×2 (01:15→10:00)
[2016-08-30] MEDS: Dextrose 5%/0.45% NS 1,000 ML IV SCH (01:20)
[2016-08-30 05:26] LABS: ALB/GLOB RATIO 0.6 (1.0-2.1); BILIRUBIN,TOTAL 3.9 mg/dl (0.2-1.3); CALCIUM 8.2 mg/dL (8.4-10.2); POTASSIUM 3.7 MMOL/L (3.6-5.0); TOTAL PROTEIN 7.5 G/DL (6.3-8.2)
[2016-08-30 06:12] LABS: TROPONIN I 0.252 ng/mL (0.00-0.120)
[2016-08-30] MEDS: Albuterol-Ipratrop 3 mg / 0.5 (3 ml) UD IH SCH ×3 (07:39→19:03)
--- NOTE | 2016-08-30 09:16 | CP.PCM.PN ---
Subjective - Date & Time of Evaluation Date of Evaluation: 08/30/16 Time of Evaluation: 09:12 - Subjective Subjective: Patient appears much more comfortable today. Underwent parascentesis yesterday. Cell count was normal. Objective - Vital Signs/Intake and Output Vital Signs (last 24 hours): Temp Pulse Resp BP Pulse Ox 97.4 F L 77 20 116/56 L 95 08/30/16 05:18 08/30/16 05:18 08/30/16 05:18 08/30/16 05:18 08/30/16 05:18 Intake and Output: 08/30/16 08/30/16 06:59 18:59 Intake Total 710 Balance 710 - Medications Medications: Current Medications Albumin Human (Albumin Human 25% (12.5 Gm/50 Ml)) 12.5 gm IV Q8 [facility] Stop: 08/31/16 01:01 Last Admin: 08/30/16 01:15 Dose: 12.5 gm Albuterol/Ipratropium (Duoneb 3 Mg/0.5 Mg (3 Ml) Ud) 3 ml IH RTID [facility] Last Admin: 08/30/16 07:39 Dose: 3 ml Furosemide (Lasix) 40 mg IVP BID [facility] Last Admin: 08/29/16 16:50 Dose: 40 mg Hydrocortisone (Cortizone 1% Cream) 1 applic TOP BID [facility] Last Admin: 08/29/16 16:51 Dose: Not Given Ceftriaxone Sodium 1 gm/ (Sodium Chloride) 100 mls @ 100 mls/hr IVPB DAILY [facility] Last Admin: 08/29/16 08:30 Dose: 100 mls/hr Lactulose (Enulose) 20 gm PO BID [facility] Last Admin: 08/29/16 16:51 Dose: 20 gm Lidocaine (Lidoderm) 1 ea TD DAILY [facility] Last Admin: 08/29/16 09:00 Dose: Not Given Metolazone (Zaroxolyn) 2.5 mg PO DAILY [facility] Last Admin: 08/29/16 08:31 Dose: 2.5 mg - Labs Labs: 08/29/16 05:30 08/30/16 05:00 PT 25.8 Seconds (9.8-13.1) H 08/29/16 11:15 INR 2.3 (0.9-1.2) H 08/29/16 11:15 APTT 42.0 Seconds (25.6-37.1) H 08/28/16 11:07 - Head Exam Head Exam: NORMAL INSPECTION - Eye Exam Eye Exam: EOMI - ENT Exam ENT Exam: Mucous Membranes Moist - Neck Exam Neck Exam: Normal Inspection - Respiratory Exam Respiratory Exam: NORMAL BREATHING PATTERN - Cardiovascular Exam Cardiovascular Exam: REGULAR RHYTHM - GI/Abdominal Exam GI & Abdominal Exam: Distended, Soft Assessment and Plan (1) Ascites of liver Assessment & Plan: BUN remains high. Will discurr with IR if TIPS is possible despite BUN/Cr. Albumin is higher which may help control of ascites and renal function. Will d/ c Rocephin as no evidence of SBP on tap. Status: Acute
--- NOTE | 2016-08-30 09:17 | CP.PCM.CON ---
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 He was initially seen on the medical floor and subsequently discharged to TCU where he developed mental status changes because of his liver disease and was readmitted to acute medicine/telemetry. He continues to complain of occasional congested cough with minimal clear mucoid sputum production. His breathing has improved after paracentesis was done yesterday with removal of 3.5aliters of ascitic fluid. He does still have some abdominal ascites as well as dependent edema. He has been treated with antibiotics for cellulitis of the lower extremities. He is a former cigarette smoker who practices habit for only about 10 years and stopped in the 1980s. There is no prior history of pulmonary disease. Past Patient History - Past Medical History & Family History Past Medical History?: Yes Past Family History: Reviewed and not pertinent - Past Social History Smoking Status: Former Smoker Chewing Tobacco Use: No Cigar Use: No Alcohol: Social Drugs: Denies Home Situation {Lives}: With Family - CARDIAC Hx Atrial Fibrillation: Yes Hx Heart Murmur: Yes Hx Hypertension: Yes Hx Peripheral Edema: Yes - PULMONARY Hx Respiratory Disorders: No - NEUROLOGICAL Hx Neurological Disorder: No - HEENT Hx HEENT Problems: No - RENAL Hx Chronic Kidney Disease: No - ENDOCRINE/METABOLIC Hx Endocrine Disorders: No - HEMATOLOGICAL/ONCOLOGICAL Hx Blood Disorders: No Hx Human Immunodeficiency Virus (HIV): No - INTEGUMENTARY Hx Cellulitis: Yes - MUSCULOSKELETAL/RHEUMATOLOGICAL Hx Arthritis: Yes Hx Falls: Yes - GASTROINTESTINAL Other/Comment: Liver Cirrhosis with ascites - GENITOURINARY/GYNECOLOGICAL Hx Genitourinary Disorders: No - PSYCHIATRIC Hx Psychophysiologic Disorder: No Hx Substance Use: No - SURGICAL HISTORY Hx Surgeries: Yes Other/Comment: 2000 arthroscopic knee surgery - ANESTHESIA Hx Anesthesia: Yes Hx Anesthesia Reactions: No Hx Malignant Hyperthermia: No Has any member of the family had a problem w/ anesthesia?: No Meds Allergies/Adverse Reactions: Allergies Allergy/AdvReac Type Severity Reaction Status Date / Time No Known Allergies Allergy Verified 08/28/16 10:03 - Medications Medications: Current Medications Albumin Human (Albumin Human 25% (12.5 Gm/50 Ml)) 12.5 gm IV Q8 [facility] Stop: 08/31/16 01:01 Last Admin: 08/30/16 01:15 Dose: 12.5 gm Albuterol/Ipratropium (Duoneb 3 Mg/0.5 Mg (3 Ml) Ud) 3 ml IH RTID [facility] Last Admin: 08/30/16 07:39 Dose: 3 ml Furosemide (Lasix) 40 mg IVP BID [facility] Last Admin: 08/29/16 16:50 Dose: 40 mg Hydrocortisone (Cortizone 1% Cream) 1 applic TOP BID [facility] Last Admin: 08/29/16 16:51 Dose: Not Given Ceftriaxone Sodium 1 gm/ (Sodium Chloride) 100 mls @ 100 mls/hr IVPB DAILY [facility] Last Admin: 08/29/16 08:30 Dose: 100 mls/hr Lactulose (Enulose) 20 gm PO BID [facility] Last Admin: 08/29/16 16:51 Dose: 20 gm Lidocaine (Lidoderm) 1 ea TD DAILY [facility] Last Admin: 08/29/16 09:00 Dose: Not Given Metolazone (Zaroxolyn) 2.5 mg PO DAILY [facility] Last Admin: 08/29/16 08:31 Dose: 2.5 mg Physical Exam - Additional Findings Additional findings: Pleasant male, sitting up in bed eating breakfast. Speech is fluent, memory is intact, alert and oriented x 3. Pharynx is pink and moist w/o exudate. Nares are patent bilaterally. Conjunctivae are pink and non-icteric. Neck is supple and trachea midline. No visible JVD. Carotid upstroke slightly blunted bilaterally, no bruits. No palpable thyromegaly. No palpable lymphadenopathy. No dullness on chest percussion, normal vocal tactile fremitus. Breath sounds are present bilaterally, well heard w/o audible wheezes or rales. No bronchial breath sounds or egophony. Scattered rhonchi in the lower lobes posteriorly. Heart sounds are well heard and rhythm appears regular. Systolic and diastolic murmurs at base. Abdomen is distended, not tense, non-tender, normal bowel sounds. Dependant edema of both LE's significantly less than prior exam, no cyanosis, less erythema. Results - Vital Signs Recent Vital Signs: Last Vital Signs Temp 97.4 F L 08/30/16 05:18 Pulse 77 08/30/16 05:18 Resp 20 08/30/16 05:18 BP 116/56 L 08/30/16 05:18 Pulse Ox 95 08/30/16 05:18 - Labs Result Diagrams: 08/29/16 05:30 08/31/16 06:30 Labs: Laboratory Results - last 24 hr 08/29/16 08/29/16 08/29/16 11:15 12:41 12:41 PT 25.8 H INR 2.3 H Sodium Potassium Chloride Carbon Dioxide Anion Gap BUN Creatinine Est GFR ( Amer) Est GFR (Non-Af Amer) Random Glucose Calcium Total Bilirubin AST ALT Alkaline Phosphatase Troponin I Total Protein Albumin Globulin Albumin/Globulin Ratio Fluid Source Peritoneal/ascites Fluid Appearance Clear Fluid WBC 106.0 Fluid RBC 66.0 H Fluid Tot Cell Count 100 H Fluid Neutrophils 28.0 H Fluid Lymphocytes 62.0 H Fld Monocyte/Macrophag 10 H Fluid Total Protein < 2.0 Fluid LDH 245 Fluid Comment Yellow 08/29/16 08/30/16 19:46 05:00 PT INR Sodium 146 Potassium 3.7 Chloride 111 H Carbon Dioxide 26 Anion Gap 13 BUN 62 H Creatinine 1.5 Est GFR ( Amer) 56 Est GFR (Non-Af Amer) 46 Random Glucose 83 Calcium 8.2 L Total Bilirubin 3.9 H AST 58 ALT 16 L Alkaline Phosphatase 72 Troponin I 0.2480 H* 0.2520 H* Total Protein 7.5 Albumin 2.7 L Globulin 4.8 H Albumin/Globulin Ratio 0.6 L Fluid Source Fluid Appearance Fluid WBC Fluid RBC Fluid Tot Cell Count Fluid Neutrophils Fluid Lymphocytes Fld Monocyte/Macrophag Fluid Total Protein Fluid LDH Fluid Comment Assessment & Plan (1) SOB (shortness of breath) Status: Acute Priority: High (2) Hepatic encephalopathy Status: Acute Priority: High (3) Cirrhosis of liver with ascites Status: Chronic Priority: High - Assessment and Plan (Free Text) Assessment: It is uncertain if his shortness of breath is a result of mechanical dysfunction secondary to the abdominal ascites or another etiology. He does not have any signs suggesting hepato-pulmonary syndrome. Atelectasis and pneumonia needs to be ruled out. His oxygenation on exam today was quite satisfactory and he claims to breathe fairly comfortably at this time. - Date & Time Date: 08/30/16 Time: 09:30
[2016-08-30] MEDS: metOLazone 2.5 MG TAB PO SCH (10:01)
[2016-08-30] MEDS: Lidocaine 5% Patch TD SCH (10:02)
--- NOTE | 2016-08-30 10:04 | PQF GENQUE ---
This form is a permanent part of the medical record 08/30/16 Dr Angel, The attending physician is required to clarify conflicting documentation in the medical record. The following documentation is noted in the medical record: Diagnosis : Renal Insufficiency AND Renal Failure 1) Please clarify which of the diagnosis are ruled in. 2) If renal failure please clarify if acute or chronic . 3) If chronic please clarify the stage BUN 59, 61, 62 Creatinine 1.6, 1.5, 1.5 GFR 43, 46, 46. Clarification of your documentation is requested to better reflect the severity of illness and intensity of treatment of your patient. PHYSICIAN'S RESPONSE Based on your medical judgment of the clinical indicators outlined above please clarify the following: [] Practitioner response [] If unable to determine, please check the box, sign and date. Present On Admission (POA) Indicator: [] Present at the time of admission [] Not present at the time of admission [] Clinically Undetermined In responding to this query, please exercise your independent professional judgment. The fact that a question is asked does not imply that any particular answer is desired or expected. Thank you for your clarification on this documentation. If you have any questions please call:extension [phone] Medical Record Dept * Thank you, Rosario Garcia RN [facility]
--- NOTE | 2016-08-30 12:03 | CP.PCM.PN ---
Subjective - Date & Time of Evaluation Date of Evaluation: 08/30/16 Time of Evaluation: 08:00 - Subjective Subjective: HAD PARACENTESIS YESTERDAY AND FEELS A LILLE BETTER TODAY NO CHEST PAIN Objective - Vital Signs/Intake and Output Vital Signs (last 24 hours): Temp Pulse Resp BP Pulse Ox 97.9 F 75 18 123/56 L 94 L 08/30/16 08:00 08/30/16 08:00 08/30/16 08:00 08/30/16 10:01 08/30/16 08:00 Intake and Output: 08/30/16 08/30/16 06:59 18:59 Intake Total 710 Balance 710 - Medications Medications: Current Medications Albuterol/Ipratropium (Duoneb 3 Mg/0.5 Mg (3 Ml) Ud) 3 ml IH RTID [facility] Last Admin: 08/30/16 07:39 Dose: 3 ml Furosemide (Lasix) 40 mg IVP BID [facility] Last Admin: 08/30/16 10:01 Dose: 40 mg Hydrocortisone (Cortizone 1% Cream) 1 applic TOP BID [facility] Last Admin: 08/30/16 10:01 Dose: 1 applic Lactulose (Enulose) 20 gm PO BID [facility] Last Admin: 08/30/16 10:01 Dose: 20 gm Lidocaine (Lidoderm) 1 ea TD DAILY [facility] Last Admin: 08/30/16 10:02 Dose: 1 ea Metolazone (Zaroxolyn) 2.5 mg PO DAILY [facility] Last Admin: 08/30/16 10:01 Dose: 2.5 mg - Labs Labs: 08/29/16 05:30 08/30/16 05:00 PT 25.8 Seconds (9.8-13.1) H 08/29/16 11:15 INR 2.3 (0.9-1.2) H 08/29/16 11:15 APTT 42.0 Seconds (25.6-37.1) H 08/28/16 11:07 - Respiratory Exam Respiratory Exam: Clear to Ausculation Bilateral - Cardiovascular Exam Cardiovascular Exam: REGULAR RHYTHM, +S1, +S2 - GI/Abdominal Exam Additional comments: ABDOMEN SOFTER TODAY AFTER PARACENTESIS - Extremities Exam Extremities Exam: Pedal Edema - Additional Findings Additional findings: GUEST RELATIONS EXECUTIVE SINUS RHYTHM TROPONINS TRENDING DOWN IR NOTE RVIEWED WITH REMOVAL OF 3.6 LITERS AT PARACENTESIS YESTERDAY Assessment and Plan - Assessment and Plan (Free Text) Assessment: LIVER CIRRHOSIS WITH HEPATIC ENCEPHALOPATHY-IMPROVED RENAL FAILURE ATRIAL FIBRILLATION Plan: CONTINUE LACTULOSE BRONCHODILATORS AND DIURETICS
--- NOTE | 2016-08-30 12:08 | US ---
Date of Procedure: 08/29/2016 PROCEDURE: Ultrasound-guided paracentesis, CPT 07056 Medications: 10 CC 1% Lidocaine HISTORY: Ascites, abdominal pain, cirrhosis TECHNIQUE: Following informed consent , the patient was placed supine on the stretcher and the site was marked. A limited abdominal ultrasound was performed that showed a large amount of intra-abdominal fluid. Procedural time out was called and the Pt's abdomen was marked and prepped and draped in the usual sterile fashion. Ultrasound-guided large volume paracentesis performed. A total of 3.3 liters of straw colored fluid was removed without complication. IMPRESSION: Ultrasound-guided large volume paracentesis.
--- NOTE | 2016-08-30 13:10 | CP.PCM.CON ---
History of Present Illness - History of Present Illness History of Present Illness: Patient who is 71 years old Transferred from subacute unit because of the hepatic potential encephalopathy and not apparently worsening of his condition. Patient was in the floor he has been evaluated was diagnosis of liver cirrhosis and he has massive anasarca when he came including massive ascites leg edema. Patient responded to diuretics somewhat and he became less edematous also he had paracentesis and approximately 3600 mL of ascitic fluid removed. Review of Systems - EENT Eyes: As Per HPI Nose/Mouth/Throat: As Per HPI - Cardiovascular Cardiovascular: Dyspnea. absent: Chest Pain - Respiratory Respiratory: Dyspnea on Exertion. absent: Cough - Gastrointestinal Gastrointestinal: Cramping. absent: Coffee Ground Emesis - Genitourinary Genitourinary: Nocturia - Musculoskeletal Musculoskeletal: absent: Abnormal Gait - Neurological Neurological: As Per HPI Past Patient History - Past Medical History & Family History Past Medical History?: Yes - Past Social History Smoking Status: Former Smoker - CARDIAC Hx Cardiac Disorders: Yes Hx Atrial Fibrillation: Yes Hx Hypertension: Yes Hx Peripheral Edema: Yes - PULMONARY Hx Respiratory Disorders: No - NEUROLOGICAL Hx Neurological Disorder: No - HEENT Hx HEENT Problems: No - RENAL Hx Chronic Kidney Disease: No - ENDOCRINE/METABOLIC Hx Endocrine Disorders: No - HEMATOLOGICAL/ONCOLOGICAL Hx Blood Disorders: No Hx AIDS: No Hx Human Immunodeficiency Virus (HIV): No - INTEGUMENTARY Hx Dermatological Problems: No - MUSCULOSKELETAL/RHEUMATOLOGICAL Hx Musculoskeletal Disorders: Yes Hx Arthritis: Yes Hx Falls: Yes - GASTROINTESTINAL Hx Gastrointestinal Disorders: Yes Other/Comment: Liver Cirrhosis with ascites - GENITOURINARY/GYNECOLOGICAL Hx Genitourinary Disorders: No - PSYCHIATRIC Hx Psychophysiologic Disorder: No Hx Substance Use: No - SURGICAL HISTORY Hx Surgeries: Yes Other/Comment: 2000 arthroscopic knee surgery - ANESTHESIA Hx Anesthesia: Yes Hx Anesthesia Reactions: No Hx Malignant Hyperthermia: No Has any member of the family had a problem w/ anesthesia?: No Meds Allergies/Adverse Reactions: Allergies Allergy/AdvReac Type Severity Reaction Status Date / Time No Known Allergies Allergy Verified 08/28/16 10:03 - Medications Medications: Current Medications Albuterol/Ipratropium (Duoneb 3 Mg/0.5 Mg (3 Ml) Ud) 3 ml IH RTID [facility] Last Admin: 08/30/16 07:39 Dose: 3 ml Furosemide (Lasix) 40 mg IVP BID [facility] Last Admin: 08/30/16 10:01 Dose: 40 mg Hydrocortisone (Cortizone 1% Cream) 1 applic TOP BID [facility] Last Admin: 08/30/16 10:01 Dose: 1 applic Lactulose (Enulose) 20 gm PO BID [facility] Last Admin: 08/30/16 10:01 Dose: 20 gm Lidocaine (Lidoderm) 1 ea TD DAILY [facility] Last Admin: 08/30/16 10:02 Dose: 1 ea Metolazone (Zaroxolyn) 2.5 mg PO DAILY [facility] Last Admin: 08/30/16 10:01 Dose: 2.5 mg Physical Exam - Constitutional Appears: No Acute Distress - ENT Exam ENT Exam: Mucous Membranes Moist - Respiratory Exam Respiratory Exam: Rales. absent: Chest Wall Tenderness - Cardiovascular Exam Cardiovascular Exam: absent: JVD, Rubs - GI/Abdominal Exam GI & Abdominal Exam: Distended, Organomegaly - Extremities Exam Extremities exam: Negative for: calf tenderness - Back Exam Back exam: absent: CVA tenderness (L), CVA tenderness (R) Results - Vital Signs Recent Vital Signs: Last Vital Signs Temp 97.9 F 08/30/16 08:00 Pulse 75 08/30/16 09:00 Resp 18 08/30/16 08:00 BP 123/56 L 08/30/16 10:01 Pulse Ox 94 L 08/30/16 08:00 - Labs Result Diagrams: 08/29/16 05:30 08/30/16 05:00 Labs: Laboratory Results - last 24 hr 08/29/16 08/29/16 08/29/16 12:41 12:41 19:46 Sodium Potassium Chloride Carbon Dioxide Anion Gap BUN Creatinine Est GFR ( Amer) Est GFR (Non-Af Amer) Random Glucose Calcium Total Bilirubin AST ALT Alkaline Phosphatase Troponin I 0.2480 H* Total Protein Albumin Globulin Albumin/Globulin Ratio Fluid Source Peritoneal/ascites Fluid Appearance Clear Fluid WBC 106.0 Fluid RBC 66.0 H Fluid Tot Cell Count 100 H Fluid Neutrophils 28.0 H Fluid Lymphocytes 62.0 H Fld Monocyte/Macrophag 10 H Fluid Total Protein < 2.0 Fluid LDH 245 Fluid Comment Yellow 08/30/16 05:00 Sodium 146 Potassium 3.7 Chloride 111 H Carbon Dioxide 26 Anion Gap 13 BUN 62 H Creatinine 1.5 Est GFR ( Amer) 56 Est GFR (Non-Af Amer) 46 Random Glucose 83 Calcium 8.2 L Total Bilirubin 3.9 H AST 58 ALT 16 L Alkaline Phosphatase 72 Troponin I 0.2520 H* Total Protein 7.5 Albumin 2.7 L Globulin 4.8 H Albumin/Globulin Ratio 0.6 L Fluid Source Fluid Appearance Fluid WBC Fluid RBC Fluid Tot Cell Count Fluid Neutrophils Fluid Lymphocytes Fld Monocyte/Macrophag Fluid Total Protein Fluid LDH Fluid Comment Assessment & Plan - Assessment and Plan (Free Text) Assessment: Patient appears to have impending hepatorenal syndrome perhaps with abnormal kidney function serum creatinine as noted which has been stable otherwise. I am told the patient may be going for procedures that require intravenous contrast obviously patient has risk, however the procedures needed then we will go ahead with it then we will give him Mucomyst and that the risk has to be explained.
[2016-08-30 14:47] LABS: CREATININE, RANDOM URINE 40.4 mg/dL
--- NOTE | 2016-08-30 17:17 | CP.PCM.PN ---
Subjective - Date & Time of Evaluation Date of Evaluation: 08/30/16 Time of Evaluation: 22:22 - Subjective Subjective: Improved Objective - Vital Signs/Intake and Output Vital Signs (last 24 hours): Temp Pulse Resp BP Pulse Ox 97.8 F 77 20 117/47 L 94 L 08/30/16 16:07 08/30/16 16:07 08/30/16 16:07 08/30/16 16:40 08/30/16 16:07 Intake and Output: 08/30/16 08/30/16 06:59 18:59 Intake Total 710 Balance 710 - Medications Medications: Current Medications Albuterol/Ipratropium (Duoneb 3 Mg/0.5 Mg (3 Ml) Ud) 3 ml IH RTID [facility] Last Admin: 08/30/16 14:00 Dose: 3 ml Furosemide (Lasix) 40 mg IVP BID [facility] Last Admin: 08/30/16 16:40 Dose: Not Given Hydrocortisone (Cortizone 1% Cream) 1 applic TOP BID [facility] Last Admin: 08/30/16 16:40 Dose: Not Given Lactulose (Enulose) 20 gm PO BID [facility] Last Admin: 08/30/16 16:41 Dose: 20 gm Lidocaine (Lidoderm) 1 ea TD DAILY [facility] Last Admin: 08/30/16 10:02 Dose: 1 ea Metolazone (Zaroxolyn) 2.5 mg PO DAILY [facility] Last Admin: 08/30/16 10:01 Dose: 2.5 mg - Labs Labs: 08/29/16 05:30 08/30/16 05:00 PT 25.8 Seconds (9.8-13.1) H 08/29/16 11:15 INR 2.3 (0.9-1.2) H 08/29/16 11:15 APTT 42.0 Seconds (25.6-37.1) H 08/28/16 11:07 - Respiratory Exam Respiratory Exam: NORMAL BREATHING PATTERN - Cardiovascular Exam Cardiovascular Exam: REGULAR RHYTHM - GI/Abdominal Exam GI & Abdominal Exam: Normal Bowel Sounds Assessment and Plan - Assessment and Plan (Free Text) Assessment: Cirrhosis Hepatosplenomegaly Hepatic encephalopathy Portal HTN ascites etiol?? Pancytopenia Low prot/alb s/p paracentesis Lasix Albumin ?? Aldactone CKD? Hepatorenal? GI Nephrology Liver transplant? +troponin EKG no changes 2 to Renal dx Cardiology Telemetry CE ] Lower extremity edema with erythema Leg elevation Lasix Cefazolin ID Podiatry SOB? 2 to ascites Duoneb CXR Lung pefusion scan (low probability) Pulmonary Low back pain etiol? improved Physiatry consult A-fib/ rate controlled Amiodorone INR 2.0 Cardiology
[2016-08-31 07:06] LABS: CALCIUM 8.1 mg/dL (8.4-10.2)
[2016-08-31] MEDS: Albuterol-Ipratrop 3 mg / 0.5 (3 ml) UD IH SCH (07:32)
--- NOTE | 2016-08-31 08:07 | CP.PCM.PN ---
Subjective - Date & Time of Evaluation Date of Evaluation: 08/31/16 Time of Evaluation: 08:05 - Subjective Subjective: 71 y/o male pt seen at bedside for f/u of resolving bilateral lower extremity edema and erythema. Pt seen resting comfortably in bed at time of visit. Denies any pain or discomfort to the lower extremities at this time. Denies any acute overnight events. Denies f/n/v/c/sp however does complain of shortness of breath. He states that his abdominal pain is improved since he had the surgery performed. Objective - Vital Signs/Intake and Output Vital Signs (last 24 hours): Temp Pulse Resp BP Pulse Ox 98.3 F 81 20 125/61 94 L 08/31/16 04:52 08/31/16 04:52 08/31/16 04:52 08/31/16 04:52 08/31/16 04:52 Intake and Output: 08/31/16 08/31/16 06:59 18:59 Intake Total 1540 Output Total 200 Balance 1340 - Medications Medications: Current Medications Albuterol/Ipratropium (Duoneb 3 Mg/0.5 Mg (3 Ml) Ud) 3 ml IH RTID [facility] Last Admin: 08/31/16 07:32 Dose: 3 ml Furosemide (Lasix) 40 mg IVP BID [facility] Last Admin: 08/30/16 16:40 Dose: Not Given Hydrocortisone (Cortizone 1% Cream) 1 applic TOP BID [facility] Last Admin: 08/30/16 16:40 Dose: Not Given Lactulose (Enulose) 20 gm PO BID [facility] Last Admin: 08/30/16 16:41 Dose: 20 gm Lidocaine (Lidoderm) 1 ea TD DAILY [facility] Last Admin: 08/30/16 10:02 Dose: 1 ea Metolazone (Zaroxolyn) 2.5 mg PO DAILY [facility] Last Admin: 08/30/16 10:01 Dose: 2.5 mg - Labs Labs: 08/29/16 05:30 08/31/16 06:30 PT 25.8 Seconds (9.8-13.1) H 08/29/16 11:15 INR 2.3 (0.9-1.2) H 08/29/16 11:15 APTT 42.0 Seconds (25.6-37.1) H 08/28/16 11:07 - Constitutional Appears: Well, Non-toxic, No Acute Distress - Extremities Exam Additional comments: VASC: DP/PT pulses are palpable, [employer]: < 3sec to all digits, TG: warm to cool, + 2 pitting edema and erythema noted distal to the knee on left, right leg resolved erythema resolving from yesterday DERM: mildly Sharply demarkated erythema, healing and resolving blisters noted to anterior left ankle, dry scaling skin lesions on anterior shins b/l, no abscess formation, no purulence, no probe to bone, no drainage, no malodor NEURO: Grossly intact ORTHO: no pain on palpation of the calf b/l - Neurological Exam Neurological Exam: Alert, Awake, Oriented x3 - Psychiatric Exam Psychiatric exam: Normal Affect, Normal Mood Assessment and Plan - Assessment and Plan (Free Text) Assessment: 71 y/o male seen at bedside for bilateral leg edema and erythema secondary to possible vasculitis and erysipelas, resolving Plan: Pt seen and evaluated labs and vitals reviewed discussed in detail with attending Dr. Clemens dressing removed, cont. with hydrocortisone cream to legs daily Podiatry will continue to follow while in-house
[2016-08-31] MEDS: metOLazone 2.5 MG TAB PO SCH (08:34)
[2016-08-31] MEDS: Lidocaine 5% Patch TD SCH (08:35)
[2016-08-31] MEDS ORDERED: Albuterol 0.083% Inhal Sol (2.5 mg/3 mL) UD INH PRN (09:47)
--- NOTE | 2016-08-31 10:09 | CP.PCM.PN ---
Subjective - Date & Time of Evaluation Date of Evaluation: 08/31/16 Time of Evaluation: 10:07 - Subjective Subjective: He is complaining of increased difficulty breathing since awakening last night. He does have occasional cough which is productive of a small amount of red tinged mucoid phlegm. His vital signs have remained stable, but his SpO2 is lower today while on oxygen than the day before. He has not been on anticoagulants during this hospitalization because his INR has been >2. He is not in distress presently but does look uncomfortable. There is no dullness on chest percussion. Breath sounds are present bilaterally with few scattered rhonchi in the dependant zones of both lungs. There are no wheezes audible and there is no bronchial breathing or egophony. Heart sounds are well heard and his murmurs are unchanged, no tachycardia. The reason for his increased SOB is not clear. His urine output as recorded has decreased significantly. There is no weight charted yet for today. His renal function prohibits doing a CT angio. He has already had a nuclear lung scan only 9 days ago, I will ask radiology if it can be repeated so soon. A D-dimer test will be inconclusive at this time. I will get a stat portable CXR now. O2 can be increased, and he could be placed on high flow if needed. Objective - Vital Signs/Intake and Output Vital Signs (last 24 hours): Temp Pulse Resp BP Pulse Ox 98.1 F 85 20 132/62 93 L 08/31/16 09:00 08/31/16 09:00 08/31/16 09:00 08/31/16 09:00 08/31/16 09:00 Intake and Output: 08/30/16 08/31/16 23:59 11:59 Intake Total 1540 Output Total 200 Balance 1340 - Medications Medications: Current Medications Albuterol Sulfate (Albuterol 0.083% Inhal Silvia (2.5 Mg/3 Ml) Ud) 2.5 mg INH RQ4 PRN PRN Reason: Shortness of Breath Albuterol/Ipratropium (Duoneb 3 Mg/0.5 Mg (3 Ml) Ud) 3 ml INH RQID [facility] Furosemide (Lasix) 40 mg IVP BID [facility] Last Admin: 08/31/16 08:34 Dose: 40 mg Hydrocortisone (Cortizone 1% Cream) 1 applic TOP BID [facility] Last Admin: 08/31/16 08:34 Dose: 1 applic Lactulose (Enulose) 20 gm PO BID [facility] Last Admin: 08/31/16 08:34 Dose: 20 gm Lidocaine (Lidoderm) 1 ea TD DAILY [facility] Last Admin: 08/31/16 08:35 Dose: Not Given Metolazone (Zaroxolyn) 2.5 mg PO DAILY [facility] Last Admin: 08/31/16 08:34 Dose: 2.5 mg - Labs Labs: 08/29/16 05:30 08/31/16 06:30 PT 25.8 Seconds (9.8-13.1) H 08/29/16 11:15 INR 2.3 (0.9-1.2) H 08/29/16 11:15 APTT 42.0 Seconds (25.6-37.1) H 08/28/16 11:07 Assessment and Plan (1) SOB (shortness of breath) Status: Acute (2) Hepatic encephalopathy Status: Acute (3) Cirrhosis of liver with ascites Status: Chronic
--- NOTE | 2016-08-31 12:55 | CP.PCM.PN ---
Subjective - Date & Time of Evaluation Date of Evaluation: 08/31/16 Time of Evaluation: 12:53 - Subjective Subjective: Patient in the chair No significant changes noted overnight although patient complaining of chronic shortness of breath on minimal exertion Physical exam Chest few rhonchi Heart no rubs Abdomen less ascites after doing paracentesis Extremity less edema probably down to 1+ now Impression and plan Chronic kidney disease is stage III appears to be stable serum creatinine has been stable He was seen by pulmonary and recommendation as noted Continue monitoring Objective - Vital Signs/Intake and Output Vital Signs (last 24 hours): Temp Pulse Resp BP Pulse Ox 98.1 F 98 H 20 132/62 92 L 08/31/16 09:00 08/31/16 10:27 08/31/16 09:00 08/31/16 09:00 08/31/16 10:27 Intake and Output: 08/31/16 08/31/16 06:59 18:59 Intake Total 1540 Output Total 200 Balance 1340 - Medications Medications: Current Medications Albuterol Sulfate (Albuterol 0.083% Inhal Silvia (2.5 Mg/3 Ml) Ud) 2.5 mg INH RQ4 PRN PRN Reason: Shortness of Breath Albuterol/Ipratropium (Duoneb 3 Mg/0.5 Mg (3 Ml) Ud) 3 ml INH RQID [facility] Furosemide (Lasix) 40 mg IVP BID [facility] Last Admin: 08/31/16 08:34 Dose: 40 mg Hydrocortisone (Cortizone 1% Cream) 1 applic TOP BID [facility] Last Admin: 08/31/16 08:34 Dose: 1 applic Lactulose (Enulose) 20 gm PO BID [facility] Last Admin: 08/31/16 08:34 Dose: 20 gm Lidocaine (Lidoderm) 1 ea TD DAILY [facility] Last Admin: 08/31/16 08:35 Dose: Not Given Metolazone (Zaroxolyn) 2.5 mg PO DAILY [facility] Last Admin: 08/31/16 08:34 Dose: 2.5 mg - Labs Labs: 08/29/16 05:30 08/31/16 06:30 PT 25.8 Seconds (9.8-13.1) H 08/29/16 11:15 INR 2.3 (0.9-1.2) H 08/29/16 11:15 APTT 42.0 Seconds (25.6-37.1) H 08/28/16 11:07
--- NOTE | 2016-08-31 13:13 | CP.PCM.PN ---
Subjective - Date & Time of Evaluation Date of Evaluation: 08/31/16 Time of Evaluation: 09:30 - Subjective Subjective: NO CHEST PAIN SOME SOB Objective - Vital Signs/Intake and Output Vital Signs (last 24 hours): Temp Pulse Resp BP Pulse Ox 98.1 F 98 H 20 132/62 92 L 08/31/16 09:00 08/31/16 10:27 08/31/16 09:00 08/31/16 09:00 08/31/16 10:27 Intake and Output: 08/31/16 08/31/16 06:59 18:59 Intake Total 1540 Output Total 200 Balance 1340 - Medications Medications: Current Medications Albuterol Sulfate (Albuterol 0.083% Inhal Silvia (2.5 Mg/3 Ml) Ud) 2.5 mg INH RQ4 PRN PRN Reason: Shortness of Breath Albuterol/Ipratropium (Duoneb 3 Mg/0.5 Mg (3 Ml) Ud) 3 ml INH RQID [facility] Furosemide (Lasix) 40 mg IVP BID [facility] Last Admin: 08/31/16 08:34 Dose: 40 mg Hydrocortisone (Cortizone 1% Cream) 1 applic TOP BID [facility] Last Admin: 08/31/16 08:34 Dose: 1 applic Lactulose (Enulose) 20 gm PO BID [facility] Last Admin: 08/31/16 08:34 Dose: 20 gm Lidocaine (Lidoderm) 1 ea TD DAILY [facility] Last Admin: 08/31/16 08:35 Dose: Not Given Metolazone (Zaroxolyn) 2.5 mg PO DAILY [facility] Last Admin: 08/31/16 08:34 Dose: 2.5 mg - Labs Labs: 08/29/16 05:30 08/31/16 06:30 PT 25.8 Seconds (9.8-13.1) H 08/29/16 11:15 INR 2.3 (0.9-1.2) H 08/29/16 11:15 APTT 42.0 Seconds (25.6-37.1) H 08/28/16 11:07 - Respiratory Exam Respiratory Exam: Rhonchi - Cardiovascular Exam Cardiovascular Exam: REGULAR RHYTHM, +S1, +S2 - Extremities Exam Additional comments: LE EDEMA AND CELLULITIS MUCH IMPROVED - Additional Findings Additional findings: NEPHROLOGY AND RENAL NOTES REVIEWED Assessment and Plan - Assessment and Plan (Free Text) Assessment: CIRRHOSIS OF THE LIVER WITH HEPATIC ENCEPHALOPATHY CAD STAGE 3 CRF Plan: CONTINUE LACTULOSE, BRONCHODILATORS, DIURETICS
[2016-08-31] MEDS: Albuterol-Ipratrop 3 mg / 0.5 (3 ml) UD INH SCH ×3 (13:28→19:26)
--- NOTE | 2016-08-31 13:40 | CP.PCM.CON ---
History of Present Illness - History of Present Illness History of Present Illness: 71 YEAR OLD MALE WAS ADMITTED TO [facility] RECENTLY WITH BILATERAL LE EDEMA AND CELLULITIS AND WAS TREATED WITH IV ANTIBIOTICS AND DIURETICS AND WAS THEN SENT TO TCU TO FINISH HIS ANTIBIOTIC REGIMEN AND THE CELLILITIS IMPROVED NOW ON TELE FOR ALTERED MENTAL STATUS WITH CONFUSION HE HAD A HIGH AMMONIA LEVEL AND WAS TREATED WITH LACTULOSE AND IMPROVED SOMEWHAT AND WAS THEN ADMITTED TO [facility] AGAIN FOR HEPATIC ENCEPHALOPATHY. PMH CIRRHOSIS, SEPSIS, CELLULITIS. AFIB CAD ARRYTHMIAS Review of Systems - Constitutional Constitutional: As Per HPI - Cardiovascular Cardiovascular: absent: As Per HPI, Acrocyanosis, Chest Pain, Chest Pain at Rest , Chest Pain with Activity, Claudication, Diaphoresis, Dyspnea, Dyspnea on Exertion, Edema, Irregular Heart Rhythm, Pain Radiating to Arm/Neck/Jaw, Leg Edema, Leg Ulcers, Lightheadedness, Orthopnea, Palpitations, Paroxysmal Nocturnal Dyspnea, Pedal Edema, Radiating Pain, Rapid Heart Rate, Slow Heart Rate, Syncope, Other - Respiratory Respiratory: absent: As Per HPI, Cough, Dyspnea, Hemoptysis, Dyspnea on Exertion , Wheezing, Snoring, Stridor, Pain on Inspiration, Chest Congestion, Excessive Mucous Production, Change in Mucous Color, Pain with Coughing, Other - Gastrointestinal Gastrointestinal: absent: As Per HPI, Abdominal Pain, Belching, Bloating, Change in Bowel Habits, Change in Stool Character, Coffee Ground Emesis, Constipation, Cramping, Diarrhea, Dyspepsia, Dysphagia, Early Satiety, Excessive Flatus, Fecal Incontinence, Heartburn, Hematemesis, Hematochezia, Loose Stools, Melena, Nausea, Odynophagia, Temesmus, Vomiting, Other - Musculoskeletal Musculoskeletal: As Per HPI - Integumentary Integumentary: As Per HPI - Neurological Neurological: As Per HPI - Psychiatric Psychiatric: As Per HPI - Endocrine Endocrine: absent: As Per HPI, Change in Body Appearance, Change in Libido, Cold Intolorance, Deepening of Voice, Excessive Sweating, Fatigue, Flushing, Heat Intolorance, Increase in Ring/Shoe/Hat Size, Palpitations, Polydipsia, Polyphagia, Polyuria, Other - Hematologic/Lymphatic Hematologic: absent: As Per HPI, Easy Bleeding, Easy Bruising, Lymphadenopathy, Other Past Patient History - Past Medical History & Family History Past Medical History?: Yes Past Family History: Reviewed and not pertinent - Past Social History Smoking Status: Former Smoker Chewing Tobacco Use: No Cigar Use: No Alcohol: Social Drugs: Denies Home Situation {Lives}: With Family - CARDIAC Hx Atrial Fibrillation: Yes Hx Heart Murmur: Yes Hx Hypertension: Yes Hx Peripheral Edema: Yes - PULMONARY Hx Respiratory Disorders: No - NEUROLOGICAL Hx Neurological Disorder: No - HEENT Hx HEENT Problems: No - RENAL Hx Chronic Kidney Disease: No - ENDOCRINE/METABOLIC Hx Endocrine Disorders: No - HEMATOLOGICAL/ONCOLOGICAL Hx Blood Disorders: No Hx Human Immunodeficiency Virus (HIV): No - INTEGUMENTARY Hx Cellulitis: Yes - MUSCULOSKELETAL/RHEUMATOLOGICAL Hx Arthritis: Yes Hx Falls: Yes - GASTROINTESTINAL Other/Comment: Liver Cirrhosis with ascites - GENITOURINARY/GYNECOLOGICAL Hx Genitourinary Disorders: No - PSYCHIATRIC Hx Psychophysiologic Disorder: No Hx Substance Use: No - SURGICAL HISTORY Hx Surgeries: Yes Other/Comment: 2000 arthroscopic knee surgery - ANESTHESIA Hx Anesthesia: Yes Hx Anesthesia Reactions: No Hx Malignant Hyperthermia: No Has any member of the family had a problem w/ anesthesia?: No Meds Allergies/Adverse Reactions: Allergies Allergy/AdvReac Type Severity Reaction Status Date / Time No Known Allergies Allergy Verified 08/28/16 10:03 - Medications Medications: Current Medications Albuterol Sulfate (Albuterol 0.083% Inhal Silvia (2.5 Mg/3 Ml) Ud) 2.5 mg INH RQ4 PRN PRN Reason: Shortness of Breath Albuterol/Ipratropium (Duoneb 3 Mg/0.5 Mg (3 Ml) Ud) 3 ml INH RQID [facility] Last Admin: 08/31/16 13:28 Dose: 3 ml Furosemide (Lasix) 40 mg IVP BID [facility] Last Admin: 08/31/16 08:34 Dose: 40 mg Hydrocortisone (Cortizone 1% Cream) 1 applic TOP BID [facility] Last Admin: 08/31/16 08:34 Dose: 1 applic Lactulose (Enulose) 20 gm PO BID [facility] Last Admin: 08/31/16 08:34 Dose: 20 gm Lidocaine (Lidoderm) 1 ea TD DAILY [facility] Last Admin: 08/31/16 08:35 Dose: Not Given Metolazone (Zaroxolyn) 2.5 mg PO DAILY [facility] Last Admin: 08/31/16 08:34 Dose: 2.5 mg Physical Exam - Constitutional Appears: Non-toxic, Chronically Ill - Head Exam Head Exam: NORMOCEPHALIC - Eye Exam Eye Exam: PERRL, Scleral icterus - ENT Exam ENT Exam: Mucous Membranes Dry, Normal External Ear Exam, Normal Oropharynx - Neck Exam Neck exam: Negative for: Lymphadenopathy - Respiratory Exam Respiratory Exam: Decreased Breath Sounds, Rhonchi - Cardiovascular Exam Cardiovascular Exam: REGULAR RHYTHM, +S1, +S2 - GI/Abdominal Exam GI & Abdominal Exam: Diminished Bowel Sounds, Distended, Firm, Guarding, Soft. absent: Hernia, Pulsatile Mass, Rebound, Rigid, Tenderness - Rectal Exam Rectal Exam: Deferred - Exam Exam: NORMAL INSPECTION - Extremities Exam Extremities exam: Positive for: pedal edema, tenderness. Negative for: calf tenderness, pedal pulses present - Back Exam Back exam: absent: CVA tenderness (L), CVA tenderness (R) - Neurological Exam Neurological exam: Alert, CN II-XII Intact, Oriented x3, Reflexes Normal - Psychiatric Exam Psychiatric exam: Depressed - Skin Skin Exam: Dry, Intact Results - Vital Signs Recent Vital Signs: Last Vital Signs Temp 97.9 F 08/31/16 13:00 Pulse 81 08/31/16 13:00 Resp 18 08/31/16 13:00 BP 111/39 L 08/31/16 13:00 Pulse Ox 95 08/31/16 13:00 - Labs Result Diagrams: 08/29/16 05:30 08/31/16 06:30 Labs: Laboratory Results - last 24 hr 08/30/16 08/31/16 13:05 06:30 Sodium 143 Potassium 4.0 Chloride 109 H Carbon Dioxide 26 Anion Gap 12 BUN 61 H Creatinine 1.5 Est GFR ( Amer) 56 Est GFR (Non-Af Amer) 46 Random Glucose 92 Calcium 8.1 L Urine Osmolality 364 Ur Random Creatinine 40.4 Ur Random Sodium 103 Assessment & Plan (1) Elevated troponin Status: Acute (2) Hepatic encephalopathy Status: Acute Priority: High (3) SOB (shortness of breath) Status: Acute Priority: High (4) Ascites of liver Status: Acute (5) Erysipelas of lower extremity Status: Acute (6) Intractable low back pain Assessment and Plan: erythema and sweolling of lower extrem- mostly chronic mental status improving recultured IV rx to cont Status: Acute (7) Cirrhosis of liver with ascites Status: Chronic Priority: High (8) Leg edema Status: Chronic Priority: High
--- NOTE | 2016-08-31 15:34 | RAD ---
HISTORY: Shortness of breath. COMPARISON: 08/28/2016. FINDINGS: LUNGS: No discrete infiltrates. Pulmonary vascular congestion. PLEURA: No significant pleural effusion identified, no pneumothorax apparent. CARDIOVASCULAR: Cardiomegaly, acute CHF. OSSEOUS STRUCTURES: No significant abnormalities. VISUALIZED UPPER ABDOMEN: Normal. OTHER FINDINGS: None. IMPRESSION: Acute congestive heart failure.
--- NOTE | 2016-08-31 16:51 | CP.PCM.PN ---
Subjective - Date & Time of Evaluation Date of Evaluation: 08/31/16 Time of Evaluation: 16:48 - Subjective Subjective: Patient somewhat short of breath. No new complaints Objective - Vital Signs/Intake and Output Vital Signs (last 24 hours): Temp Pulse Resp BP Pulse Ox 98.1 F 81 20 107/50 L 97 08/31/16 15:44 08/31/16 15:44 08/31/16 15:44 08/31/16 15:44 08/31/16 15:44 Intake and Output: 08/31/16 08/31/16 06:59 18:59 Intake Total 1540 Output Total 200 Balance 1340 - Medications Medications: Current Medications Albuterol Sulfate (Albuterol 0.083% Inhal Silvia (2.5 Mg/3 Ml) Ud) 2.5 mg INH RQ4 PRN PRN Reason: Shortness of Breath Albuterol/Ipratropium (Duoneb 3 Mg/0.5 Mg (3 Ml) Ud) 3 ml INH RQID [facility] Last Admin: 08/31/16 15:45 Dose: 3 ml Furosemide (Lasix) 40 mg IVP BID [facility] Last Admin: 08/31/16 08:34 Dose: 40 mg Hydrocortisone (Cortizone 1% Cream) 1 applic TOP BID [facility] Last Admin: 08/31/16 08:34 Dose: 1 applic Lactulose (Enulose) 20 gm PO BID [facility] Last Admin: 08/31/16 08:34 Dose: 20 gm Lidocaine (Lidoderm) 1 ea TD DAILY [facility] Last Admin: 08/31/16 08:35 Dose: Not Given Metolazone (Zaroxolyn) 2.5 mg PO DAILY [facility] Last Admin: 08/31/16 08:34 Dose: 2.5 mg - Labs Labs: 08/29/16 05:30 08/31/16 06:30 PT 25.8 Seconds (9.8-13.1) H 08/29/16 11:15 INR 2.3 (0.9-1.2) H 08/29/16 11:15 APTT 42.0 Seconds (25.6-37.1) H 08/28/16 11:07 - Head Exam Head Exam: ATRAUMATIC - Eye Exam Eye Exam: Normal appearance Pupil Exam: NORMAL ACCOMODATION - Neck Exam Neck Exam: Full ROM - Respiratory Exam Respiratory Exam: Clear to Ausculation Bilateral - Cardiovascular Exam Cardiovascular Exam: REGULAR RHYTHM - GI/Abdominal Exam GI & Abdominal Exam: Distended, Firm. absent: Tenderness Assessment and Plan (1) Ascites of liver Assessment & Plan: Abdomen again very distended. Will benefit from repeat parascentesis tomorrow. Already on diuretics, salt, and fluid restriction. Possible TIPS when he goes to liver center. Status: Acute
[2016-08-31] MEDS ORDERED: Nitroglycerin 2% 15 INCH/30 GM TUBE TOP ONE (17:59)
[2016-08-31] MEDS: ceFAZolin 1 GM in Sodium Chloride 0.9% 100 ML IVPB SCH (20:54)
--- NOTE | 2016-08-31 22:23 | CP.PCM.PN ---
Subjective - Date & Time of Evaluation Date of Evaluation: 08/31/16 Time of Evaluation: 22:22 - Subjective Subjective: Currently improved with less SOB on exertion Lying flat in bed in NAD SpaO2 96 Objective - Vital Signs/Intake and Output Vital Signs (last 24 hours): Temp Pulse Resp BP Pulse Ox 97.6 F 85 20 116/60 96 08/31/16 18:53 08/31/16 18:53 08/31/16 18:53 08/31/16 18:53 08/31/16 18:53 Intake and Output: 08/31/16 09/01/16 18:59 06:59 Intake Total 1760 Output Total 600 Balance 1160 - Medications Medications: Current Medications Albuterol Sulfate (Albuterol 0.083% Inhal Silvia (2.5 Mg/3 Ml) Ud) 2.5 mg INH RQ4 PRN PRN Reason: Shortness of Breath Albuterol/Ipratropium (Duoneb 3 Mg/0.5 Mg (3 Ml) Ud) 3 ml INH RQID [facility] Last Admin: 08/31/16 19:26 Dose: 3 ml Furosemide (Lasix) 40 mg IVP BID [facility] Last Admin: 08/31/16 16:49 Dose: Not Given Hydrocortisone (Cortizone 1% Cream) 1 applic TOP BID [facility] Last Admin: 08/31/16 16:50 Dose: Not Given Cefazolin Sodium 1 gm/ Sodium (Chloride) 100 mls @ 100 mls/hr IVPB Q8@0500,1300 ,2100 [facility] Last Admin: 08/31/16 20:54 Dose: 100 mls/hr Lactulose (Enulose) 20 gm PO BID [facility] Last Admin: 08/31/16 16:49 Dose: 20 gm Lidocaine (Lidoderm) 1 ea TD DAILY [facility] Last Admin: 08/31/16 08:35 Dose: Not Given Metolazone (Zaroxolyn) 2.5 mg PO DAILY [facility] Last Admin: 08/31/16 08:34 Dose: 2.5 mg - Labs Labs: 08/29/16 05:30 08/31/16 06:30 PT 25.8 Seconds (9.8-13.1) H 08/29/16 11:15 INR 2.3 (0.9-1.2) H 08/29/16 11:15 APTT 42.0 Seconds (25.6-37.1) H 08/28/16 11:07 - Respiratory Exam Respiratory Exam: NORMAL BREATHING PATTERN - Cardiovascular Exam Cardiovascular Exam: REGULAR RHYTHM - GI/Abdominal Exam GI & Abdominal Exam: Normal Bowel Sounds Assessment and Plan - Assessment and Plan (Free Text) Assessment: Cirrhosis Hepatosplenomegaly Hepatic encephalopathy Portal HTN ascites etiol?? Pancytopenia Low prot/alb s/p paracentesis possible repeat Lasix Albumin LActulose ?? Aldactone CKD? Hepatorenal? GI Nephrology Liver transplant? TIPS SOB? 2 to ascites Duoneb CXR ??? Pulmonary +troponin EKG no changes 2 to Renal dx Cardiology Telemetry CE ] Lower extremity edema with erythema Leg elevation Lasix Cefazolin ID Podiatry Low back pain etiol? improved Physiatry consult A-fib/ rate controlled Amiodorone INR 2.0 Cardiology
[2016-09-01] MEDS: ceFAZolin 1 GM in Sodium Chloride 0.9% 100 ML IVPB SCH ×3 (04:12→21:00)
[2016-09-01 06:46] LABS: HEMATOCRIT 28.5 % (35.0-51.0); MEAN CELL VOLUME 107.1 fl (80.0-94.0); MEAN CORPUSCULAR HEMOGLOBIN 35.3 pg (27.0-31.0); RED CELL DISTRIBUTION WIDTH 17.5 % (11.5-14.5); WHITE BLOOD COUNT 10.6 K/uL (4.8-10.8)
[2016-09-01 06:56] LABS: CALCIUM 7.9 mg/dL (8.4-10.2)
[2016-09-01] MEDS: Albuterol-Ipratrop 3 mg / 0.5 (3 ml) UD INH SCH ×4 (07:51→19:15)
--- NOTE | 2016-09-01 08:00 | CP.PCM.PN ---
Subjective - Date & Time of Evaluation Date of Evaluation: 09/01/16 Time of Evaluation: 07:57 - Subjective Subjective: 71 y/o male seen at bedside for bilateral lower extremity edema and erythema, has been resolving. Patient denies any acute events overnight. He appears in NAD and AAOx3. Patient states that he is going for another procedure today to tap his belly and remove the fluid. Patient denies any pain in his legs at this time. He denies n/f/v/d/c/sob. Objective - Vital Signs/Intake and Output Vital Signs (last 24 hours): Temp Pulse Resp BP Pulse Ox 97.4 F L 80 20 117/53 L 97 09/01/16 04:59 09/01/16 04:59 09/01/16 04:59 09/01/16 04:59 09/01/16 04:59 Intake and Output: 09/01/16 09/01/16 06:59 18:59 Intake Total 2360 Output Total 1200 Balance 1160 - Medications Medications: Current Medications Albuterol Sulfate (Albuterol 0.083% Inhal Silvia (2.5 Mg/3 Ml) Ud) 2.5 mg INH RQ4 PRN PRN Reason: Shortness of Breath Albuterol/Ipratropium (Duoneb 3 Mg/0.5 Mg (3 Ml) Ud) 3 ml INH RQID [facility] Last Admin: 09/01/16 07:51 Dose: 3 ml Furosemide (Lasix) 40 mg IVP BID [facility] Last Admin: 08/31/16 16:49 Dose: Not Given Hydrocortisone (Cortizone 1% Cream) 1 applic TOP BID [facility] Last Admin: 08/31/16 16:50 Dose: Not Given Cefazolin Sodium 1 gm/ Sodium (Chloride) 100 mls @ 100 mls/hr IVPB Q8@0500,1300 ,2100 [facility] Last Admin: 09/01/16 04:12 Dose: 100 mls/hr Lactulose (Enulose) 20 gm PO BID [facility] Last Admin: 08/31/16 16:49 Dose: 20 gm Lidocaine (Lidoderm) 1 ea TD DAILY [facility] Last Admin: 08/31/16 08:35 Dose: Not Given Metolazone (Zaroxolyn) 2.5 mg PO DAILY [facility] Last Admin: 08/31/16 08:34 Dose: 2.5 mg - Labs Labs: 09/01/16 06:00 09/01/16 06:00 PT 25.8 Seconds (9.8-13.1) H 08/29/16 11:15 INR 2.3 (0.9-1.2) H 08/29/16 11:15 APTT 42.0 Seconds (25.6-37.1) H 08/28/16 11:07 - Constitutional Appears: Well, Non-toxic, No Acute Distress - Extremities Exam Additional comments: Vasc: DP 2/4, PT 1/4 b/l, TG wnkl, CFT < 3 sec to all digits, spongy edema neuro: grossly intact derm: resolving erythema, resolving edema, no open lesions, no acute clinical signs of infection ortho: no pain on palpation to bilateral lower extremities - Neurological Exam Neurological Exam: Alert, Awake, Oriented x3 - Psychiatric Exam Psychiatric exam: Normal Affect, Normal Mood Assessment and Plan - Assessment and Plan (Free Text) Assessment: 71 y/o male seen at bedside for resolving edema and erythema Plan: patient evaluated and chart reviewed discussed in detail with attending Dr. Clemens labs and vitals reviewed; afebrile, WBC 10.6 cont. hydrocortisone cream topical daily cont. IV abx podiatry will continue to follow while patient remains in house
[2016-09-01] MEDS: Lidocaine 5% Patch TD SCH (08:49)
[2016-09-01] MEDS: metOLazone 2.5 MG TAB PO SCH (08:50)
--- NOTE | 2016-09-01 11:05 | CP.PCM.PN ---
Subjective - Date & Time of Evaluation Date of Evaluation: 09/01/16 Time of Evaluation: 07:30 - Subjective Subjective: THE PATIENT HAS LESS SOB TODAY NO CHEST PAIN OR PALPITATIONS Objective - Vital Signs/Intake and Output Vital Signs (last 24 hours): Temp Pulse Resp BP Pulse Ox 97.9 F 82 18 113/51 L 95 09/01/16 08:00 09/01/16 09:00 09/01/16 08:00 09/01/16 08:49 09/01/16 08:00 Intake and Output: 09/01/16 09/01/16 06:59 18:59 Intake Total 2360 Output Total 1200 Balance 1160 - Medications Medications: Current Medications Albuterol Sulfate (Albuterol 0.083% Inhal Silvia (2.5 Mg/3 Ml) Ud) 2.5 mg INH RQ4 PRN PRN Reason: Shortness of Breath Albuterol/Ipratropium (Duoneb 3 Mg/0.5 Mg (3 Ml) Ud) 3 ml INH RQID [facility] Last Admin: 09/01/16 07:51 Dose: 3 ml Furosemide (Lasix) 40 mg IVP BID [facility] Last Admin: 09/01/16 08:49 Dose: 40 mg Hydrocortisone (Cortizone 1% Cream) 1 applic TOP BID [facility] Last Admin: 09/01/16 08:48 Dose: 1 applic Cefazolin Sodium 1 gm/ Sodium (Chloride) 100 mls @ 100 mls/hr IVPB Q8@0500,1300 ,2100 [facility] Last Admin: 09/01/16 04:12 Dose: 100 mls/hr Lactulose (Enulose) 20 gm PO BID [facility] Last Admin: 09/01/16 08:48 Dose: 20 gm Lidocaine (Lidoderm) 1 ea TD DAILY [facility] Last Admin: 09/01/16 08:49 Dose: 1 ea Metolazone (Zaroxolyn) 2.5 mg PO DAILY [facility] Last Admin: 09/01/16 08:50 Dose: 2.5 mg - Labs Labs: 09/01/16 06:00 09/01/16 06:00 PT 25.8 Seconds (9.8-13.1) H 08/29/16 11:15 INR 2.3 (0.9-1.2) H 08/29/16 11:15 APTT 42.0 Seconds (25.6-37.1) H 08/28/16 11:07 - Respiratory Exam Additional comments: MILD RALES MILD EXPIRATORY WHEEZES - Cardiovascular Exam Cardiovascular Exam: REGULAR RHYTHM, +S1, +S2 - Extremities Exam Additional comments: SIGNIFICANT DECREASE IN LE EDEMA CELLULITIS IMPROVED - Additional Findings Additional findings: EN[employer]IRONMENTAL [employer] NSR CXR REPORT NOTED-CONGESTIVE CHANGES MILD IN MY OPINION RECENT ECHOCARDIOGRAMS WITH GOOD LV SYSTOLIC CONTRACTION Assessment and Plan - Assessment and Plan (Free Text) Assessment: CIRRHOSIS OF THE LIVER S/P ATRIAL FIBRILLATION MILD PULMONARY CONGESTION Plan: THE PATIENT IS ALREADY ON O2, BRONCHODILATORS, FUROSEMIDE AND ZAROXOLYN NITROPASTE GIVEN YESTERDAY AFTER CXR REPORT NOTIFICATION FOR REPEAT PARACENTESIS TODAY
--- NOTE | 2016-09-01 11:06 | CP.PCM.PN ---
Subjective - Date & Time of Evaluation Date of Evaluation: 09/01/16 Time of Evaluation: 11:03 - Subjective Subjective: Seated in bedside chair, feels better than yesterday morning. Has repeat paracentesis planned for today. Repeat CXR yesterday did show a congested vascular pattern, no parenchymal infiltrates, no effusions, but elevated diaphragms. Breath sounds are well heard bilaterally, few rhonchi and dry rales are present in the lung bases. Abdominal distension ++ tense. Continue present plan and medical regimen. Objective - Vital Signs/Intake and Output Vital Signs (last 24 hours): Temp Pulse Resp BP Pulse Ox 97.9 F 82 18 113/51 L 95 09/01/16 08:00 09/01/16 09:00 09/01/16 08:00 09/01/16 08:49 09/01/16 08:00 Intake and Output: 08/31/16 09/01/16 23:59 11:59 Intake Total 1760 600 Output Total 600 600 Balance 1160 0 - Medications Medications: Current Medications Albuterol Sulfate (Albuterol 0.083% Inhal Silvia (2.5 Mg/3 Ml) Ud) 2.5 mg INH RQ4 PRN PRN Reason: Shortness of Breath Albuterol/Ipratropium (Duoneb 3 Mg/0.5 Mg (3 Ml) Ud) 3 ml INH RQID [facility] Last Admin: 09/01/16 07:51 Dose: 3 ml Furosemide (Lasix) 40 mg IVP BID [facility] Last Admin: 09/01/16 08:49 Dose: 40 mg Hydrocortisone (Cortizone 1% Cream) 1 applic TOP BID [facility] Last Admin: 09/01/16 08:48 Dose: 1 applic Cefazolin Sodium 1 gm/ Sodium (Chloride) 100 mls @ 100 mls/hr IVPB Q8@0500,1300 ,2100 [facility] Last Admin: 09/01/16 04:12 Dose: 100 mls/hr Lactulose (Enulose) 20 gm PO BID [facility] Last Admin: 09/01/16 08:48 Dose: 20 gm Lidocaine (Lidoderm) 1 ea TD DAILY [facility] Last Admin: 09/01/16 08:49 Dose: 1 ea Metolazone (Zaroxolyn) 2.5 mg PO DAILY [facility] Last Admin: 09/01/16 08:50 Dose: 2.5 mg - Labs Labs: 09/01/16 06:00 09/01/16 06:00 PT 25.8 Seconds (9.8-13.1) H 08/29/16 11:15 INR 2.3 (0.9-1.2) H 08/29/16 11:15 APTT 42.0 Seconds (25.6-37.1) H 08/28/16 11:07 Assessment and Plan (1) SOB (shortness of breath) Status: Acute (2) Hepatic encephalopathy Status: Acute (3) Cirrhosis of liver with ascites Status: Chronic
[2016-09-01] MEDS ORDERED: Lidocaine 1% Inj (20ml) ONE (14:02)
--- NOTE | 2016-09-01 15:06 | CP.PCM.PN ---
Subjective - Date & Time of Evaluation Date of Evaluation: 09/01/16 Time of Evaluation: 22:22 - Subjective Subjective: Paracentesis today Objective - Vital Signs/Intake and Output Vital Signs (last 24 hours): Temp Pulse Resp BP Pulse Ox 98 F 81 18 114/59 L 98 09/01/16 14:20 09/01/16 14:20 09/01/16 14:20 09/01/16 14:20 09/01/16 14:20 Intake and Output: 09/01/16 09/01/16 06:59 18:59 Intake Total 2360 Output Total 1200 Balance 1160 - Medications Medications: Current Medications Albumin Human (Albumin Human 25% (12.5 Gm/50 Ml)) 12.5 gm IV Q8 [facility] Stop: 09/02/16 09:01 Albuterol Sulfate (Albuterol 0.083% Inhal Silvia (2.5 Mg/3 Ml) Ud) 2.5 mg INH RQ4 PRN PRN Reason: Shortness of Breath Albuterol/Ipratropium (Duoneb 3 Mg/0.5 Mg (3 Ml) Ud) 3 ml INH RQID [facility] Last Admin: 09/01/16 11:17 Dose: 3 ml Furosemide (Lasix) 40 mg IVP BID [facility] Last Admin: 09/01/16 08:49 Dose: 40 mg Hydrocortisone (Cortizone 1% Cream) 1 applic TOP BID [facility] Last Admin: 09/01/16 08:48 Dose: 1 applic Cefazolin Sodium 1 gm/ Sodium (Chloride) 100 mls @ 100 mls/hr IVPB Q8@0500,1300 ,2100 [facility] Last Admin: 09/01/16 12:30 Dose: 100 mls/hr Lactulose (Enulose) 20 gm PO BID [facility] Last Admin: 09/01/16 08:48 Dose: 20 gm Lidocaine (Lidoderm) 1 ea TD DAILY [facility] Last Admin: 09/01/16 08:49 Dose: 1 ea Metolazone (Zaroxolyn) 2.5 mg PO DAILY [facility] Last Admin: 09/01/16 08:50 Dose: 2.5 mg - Labs Labs: 09/01/16 06:00 09/01/16 06:00 PT 25.8 Seconds (9.8-13.1) H 08/29/16 11:15 INR 2.3 (0.9-1.2) H 08/29/16 11:15 APTT 42.0 Seconds (25.6-37.1) H 08/28/16 11:07 - Respiratory Exam Respiratory Exam: NORMAL BREATHING PATTERN - Cardiovascular Exam Cardiovascular Exam: REGULAR RHYTHM - GI/Abdominal Exam GI & Abdominal Exam: Normal Bowel Sounds Assessment and Plan - Assessment and Plan (Free Text) Assessment: Cirrhosis Hepatosplenomegaly Hepatic encephalopathy Portal HTN ascites etiol?? Pancytopenia Low prot/alb s/p paracentesis possible repeat Lasix Albumin LActulose ?? Aldactone CKD? Hepatorenal? GI Nephrology Liver transplant? TIPS SOB? 2 to ascites Duoneb CXR ??? Pulmonary +troponin EKG no changes 2 to Renal dx Cardiology Telemetry CE ] Lower extremity edema with erythema Leg elevation Lasix Cefazolin ID Podiatry Low back pain etiol? improved Physiatry consult A-fib/ rate controlled Amiodorone INR 2.0 Cardiology
[2016-09-01 15:54] VITALS: RESP 20
[2016-09-01] MEDS: Albumin Human 25% (12.5 gm/50 ml) IV SCH (17:12)
--- NOTE | 2016-09-01 19:33 | CP.PCM.PN ---
Subjective - Date & Time of Evaluation Date of Evaluation: 09/01/16 Time of Evaluation: 12:00 - Subjective Subjective: patient with no acute complaints, generalized weakness Objective - Vital Signs/Intake and Output Vital Signs (last 24 hours): Temp Pulse Resp BP Pulse Ox 97.6 F 79 20 117/49 L 97 09/01/16 15:53 09/01/16 15:53 09/01/16 15:53 09/01/16 17:09 09/01/16 15:53 - Medications Medications: Current Medications Albumin Human (Albumin Human 25% (12.5 Gm/50 Ml)) 12.5 gm IV Q8 [facility] Stop: 09/02/16 09:01 Last Admin: 09/01/16 17:12 Dose: 12.5 gm Albuterol Sulfate (Albuterol 0.083% Inhal Silvia (2.5 Mg/3 Ml) Ud) 2.5 mg INH RQ4 PRN PRN Reason: Shortness of Breath Albuterol/Ipratropium (Duoneb 3 Mg/0.5 Mg (3 Ml) Ud) 3 ml INH RQID [facility] Last Admin: 09/01/16 19:15 Dose: 3 ml Furosemide (Lasix) 40 mg IVP BID [facility] Last Admin: 09/01/16 17:09 Dose: Not Given Hydrocortisone (Cortizone 1% Cream) 1 applic TOP BID [facility] Last Admin: 09/01/16 17:12 Dose: 1 applic Cefazolin Sodium 1 gm/ Sodium (Chloride) 100 mls @ 100 mls/hr IVPB Q8@0500,1300 ,2100 [facility] Last Admin: 09/01/16 12:30 Dose: 100 mls/hr Lactulose (Enulose) 20 gm PO BID [facility] Last Admin: 09/01/16 17:12 Dose: 20 gm Lidocaine (Lidoderm) 1 ea TD DAILY [facility] Last Admin: 09/01/16 08:49 Dose: 1 ea Metolazone (Zaroxolyn) 2.5 mg PO DAILY [facility] Last Admin: 09/01/16 08:50 Dose: 2.5 mg - Labs Labs: 09/01/16 06:00 09/01/16 06:00 PT 25.8 Seconds (9.8-13.1) H 08/29/16 11:15 INR 2.3 (0.9-1.2) H 08/29/16 11:15 APTT 42.0 Seconds (25.6-37.1) H 08/28/16 11:07 - Head Exam Head Exam: ATRAUMATIC, NORMAL INSPECTION, NORMOCEPHALIC - Eye Exam Eye Exam: EOMI Pupil Exam: NORMAL ACCOMODATION - ENT Exam ENT Exam: Mucous Membranes Moist - Respiratory Exam Respiratory Exam: NORMAL BREATHING PATTERN - Cardiovascular Exam Cardiovascular Exam: REGULAR RHYTHM - GI/Abdominal Exam GI & Abdominal Exam: Normal Bowel Sounds - Rectal Exam Rectal Exam: NORMAL INSPECTION - Exam External exam: NORMAL EXTERNAL EXAM - Extremities Exam Extremities Exam: Normal Inspection - Back Exam Back Exam: NORMAL INSPECTION - Psychiatric Exam Psychiatric exam: Normal Affect - Skin Skin Exam: Dry, Normal Color Assessment and Plan (1) Elevated troponin Status: Acute (2) Hepatic encephalopathy Status: Acute (3) SOB (shortness of breath) Status: Acute (4) Ascites of liver Assessment & Plan: patient for Range of motion, strengthening, transfers and gait training. to prevent deconditioning and generalized weakness. covering for Dr Gonzalez Status: Acute (5) Bacteremia Status: Acute (6) Bacteremia due to Gram-positive bacteria Status: Acute (7) Cough productive of clear sputum Status: Acute (8) Erysipelas of lower extremity Status: Acute
[2016-09-02] MEDS: Albumin Human 25% (12.5 gm/50 ml) IV SCH ×2 (00:41→08:15)
[2016-09-02] MEDS: ceFAZolin 1 GM in Sodium Chloride 0.9% 100 ML IVPB SCH ×2 (04:03→12:52)
[2016-09-02] MEDS: Albuterol-Ipratrop 3 mg / 0.5 (3 ml) UD INH SCH ×2 (07:53→11:45)
[2016-09-02] MEDS: metOLazone 2.5 MG TAB PO SCH (08:17)
[2016-09-02] MEDS: Lidocaine 5% Patch TD SCH (08:17)
--- NOTE | 2016-09-02 09:34 | CP.PCM.PN ---
Subjective - Date & Time of Evaluation Date of Evaluation: 09/02/16 Time of Evaluation: 09:32 - Subjective Subjective: Patient is out of bed sitting in the chair he is having his breakfast Patient appeared to be included mood and good spirit Vital sign noted to be stable Objective - Vital Signs/Intake and Output Vital Signs (last 24 hours): Temp Pulse Resp BP Pulse Ox 98.2 F 75 20 116/54 L 95 09/02/16 08:00 09/02/16 08:00 09/02/16 08:00 09/02/16 08:17 09/02/16 08:00 Intake and Output: 09/02/16 09/02/16 06:59 18:59 Intake Total 370 Output Total 680 Balance -310 - Medications Medications: Current Medications Albuterol Sulfate (Albuterol 0.083% Inhal Silvia (2.5 Mg/3 Ml) Ud) 2.5 mg INH RQ4 PRN PRN Reason: Shortness of Breath Albuterol/Ipratropium (Duoneb 3 Mg/0.5 Mg (3 Ml) Ud) 3 ml INH RQID [facility] Last Admin: 09/02/16 07:53 Dose: 3 ml Furosemide (Lasix) 40 mg IVP BID [facility] Last Admin: 09/02/16 08:17 Dose: 40 mg Hydrocortisone (Cortizone 1% Cream) 1 applic TOP BID [facility] Last Admin: 09/02/16 08:16 Dose: 1 applic Cefazolin Sodium 1 gm/ Sodium (Chloride) 100 mls @ 100 mls/hr IVPB Q8@0500,1300 ,2100 [facility] Last Admin: 09/02/16 04:03 Dose: 100 mls/hr Lactulose (Enulose) 20 gm PO BID [facility] Last Admin: 09/02/16 08:16 Dose: Not Given Lidocaine (Lidoderm) 1 ea TD DAILY [facility] Last Admin: 09/02/16 08:17 Dose: Not Given Metolazone (Zaroxolyn) 2.5 mg PO DAILY [facility] Last Admin: 09/02/16 08:17 Dose: 2.5 mg - Labs Labs: 09/01/16 06:00 09/01/16 06:00 PT 25.8 Seconds (9.8-13.1) H 08/29/16 11:15 INR 2.3 (0.9-1.2) H 08/29/16 11:15 APTT 42.0 Seconds (25.6-37.1) H 08/28/16 11:07 - Constitutional Appears: No Acute Distress - ENT Exam ENT Exam: Mucous Membranes Moist - Respiratory Exam Respiratory Exam: NORMAL BREATHING PATTERN. absent: Chest Wall Tenderness - GI/Abdominal Exam GI & Abdominal Exam: Guarding - Extremities Exam Extremities Exam: absent: Calf Tenderness - Back Exam Back Exam: absent: CVA tenderness (L), CVA tenderness (R) - Neurological Exam Neurological Exam: Alert Assessment and Plan (1) Chronic kidney disease, stage III (moderate) Assessment & Plan: Patient have CK D stage III which has been stable Advanced liver cirrhosis Status post paracentesis and 9000 mL of fluid removed yesterday Decrease leg edema and decrease ascites. Status: Chronic
--- NOTE | 2016-09-02 10:08 | CP.PCM.PN ---
Subjective - Date & Time of Evaluation Date of Evaluation: 09/02/16 Time of Evaluation: 10:05 - Subjective Subjective: Seated in bedside chair. Had paracentesis yesterday. Claims to feel much improved today. No C/O SOB or cough. Good oxygenation. Will sign off case at this time. Thanks. Objective - Vital Signs/Intake and Output Vital Signs (last 24 hours): Temp Pulse Resp BP Pulse Ox 98.2 F 75 20 116/54 L 95 09/02/16 08:00 09/02/16 08:00 09/02/16 08:00 09/02/16 08:17 09/02/16 08:00 Intake and Output: 09/01/16 09/02/16 23:59 11:59 Intake Total 1050 370 Output Total 9000 680 Balance -3850 -310 - Medications Medications: Current Medications Albuterol Sulfate (Albuterol 0.083% Inhal Silvia (2.5 Mg/3 Ml) Ud) 2.5 mg INH RQ4 PRN PRN Reason: Shortness of Breath Albuterol/Ipratropium (Duoneb 3 Mg/0.5 Mg (3 Ml) Ud) 3 ml INH RQID [facility] Last Admin: 09/02/16 07:53 Dose: 3 ml Furosemide (Lasix) 40 mg IVP BID [facility] Last Admin: 09/02/16 08:17 Dose: 40 mg Hydrocortisone (Cortizone 1% Cream) 1 applic TOP BID [facility] Last Admin: 09/02/16 08:16 Dose: 1 applic Cefazolin Sodium 1 gm/ Sodium (Chloride) 100 mls @ 100 mls/hr IVPB Q8@0500,1300 ,2100 [facility] Last Admin: 09/02/16 04:03 Dose: 100 mls/hr Lactulose (Enulose) 20 gm PO BID [facility] Last Admin: 09/02/16 08:16 Dose: Not Given Lidocaine (Lidoderm) 1 ea TD DAILY [facility] Last Admin: 09/02/16 08:17 Dose: Not Given Metolazone (Zaroxolyn) 2.5 mg PO DAILY [facility] Last Admin: 09/02/16 08:17 Dose: 2.5 mg - Labs Labs: 09/01/16 06:00 09/01/16 06:00 PT 25.8 Seconds (9.8-13.1) H 08/29/16 11:15 INR 2.3 (0.9-1.2) H 08/29/16 11:15 APTT 42.0 Seconds (25.6-37.1) H 08/28/16 11:07 Assessment and Plan (1) SOB (shortness of breath) Assessment & Plan: Resolved. (2) Hepatic encephalopathy Assessment & Plan: Resolved. (3) Cirrhosis of liver with ascites Status: Chronic
--- NOTE | 2016-09-02 10:09 | CP.PCM.PN ---
Subjective - Date & Time of Evaluation Date of Evaluation: 09/02/16 Time of Evaluation: 09:00 - Subjective Subjective: HAD PARACENTESIS YESTERDAY AND FEELS MUCH BETTER, BREATHING BETTER Objective - Vital Signs/Intake and Output Vital Signs (last 24 hours): Temp Pulse Resp BP Pulse Ox 98.2 F 75 20 116/54 L 95 09/02/16 08:00 09/02/16 08:00 09/02/16 08:00 09/02/16 08:17 09/02/16 08:00 Intake and Output: 09/02/16 09/02/16 06:59 18:59 Intake Total 370 Output Total 680 Balance -310 - Medications Medications: Current Medications Albuterol Sulfate (Albuterol 0.083% Inhal Silvia (2.5 Mg/3 Ml) Ud) 2.5 mg INH RQ4 PRN PRN Reason: Shortness of Breath Albuterol/Ipratropium (Duoneb 3 Mg/0.5 Mg (3 Ml) Ud) 3 ml INH RQID [facility] Last Admin: 09/02/16 07:53 Dose: 3 ml Furosemide (Lasix) 40 mg IVP BID [facility] Last Admin: 09/02/16 08:17 Dose: 40 mg Hydrocortisone (Cortizone 1% Cream) 1 applic TOP BID [facility] Last Admin: 09/02/16 08:16 Dose: 1 applic Cefazolin Sodium 1 gm/ Sodium (Chloride) 100 mls @ 100 mls/hr IVPB Q8@0500,1300 ,2100 [facility] Last Admin: 09/02/16 04:03 Dose: 100 mls/hr Lactulose (Enulose) 20 gm PO BID [facility] Last Admin: 09/02/16 08:16 Dose: Not Given Lidocaine (Lidoderm) 1 ea TD DAILY [facility] Last Admin: 09/02/16 08:17 Dose: Not Given Metolazone (Zaroxolyn) 2.5 mg PO DAILY [facility] Last Admin: 09/02/16 08:17 Dose: 2.5 mg - Labs Labs: 09/01/16 06:00 09/01/16 06:00 PT 25.8 Seconds (9.8-13.1) H 08/29/16 11:15 INR 2.3 (0.9-1.2) H 08/29/16 11:15 APTT 42.0 Seconds (25.6-37.1) H 08/28/16 11:07 - Respiratory Exam Respiratory Exam: Clear to Ausculation Bilateral - Cardiovascular Exam Cardiovascular Exam: REGULAR RHYTHM, +S1, +S2 - Extremities Exam Additional comments: DECREASE IN LEG EDEMA AND CELLULITIS - Additional Findings Additional findings: [employer] NSR 9 LITERS OF FLUID REMOVED DURING PARACENTESIS Assessment and Plan - Assessment and Plan (Free Text) Assessment: CIRRHOSIS OF THE LIVER S/P ATRIAL FIBRILLATION-REMAINS IN NSR Plan: CONTINUE FUROSEMIDE, ZAROXOLYN, LACTULOSE, BRONCHODILATORS
--- NOTE | 2016-09-02 11:05 | US ---
Date of Procedure: 09/01/2016 PROCEDURE: Ultrasound-guided paracentesis, CPT 40085 Medications: 8 cc 1% Lidocaine HISTORY: Ascites, abdominal pain, cirrhosis TECHNIQUE: Following informed consent , the patient was placed supine on the stretcher and the site was marked. A limited abdominal ultrasound was performed that showed a large amount of intra-abdominal fluid. Procedural time out was called and the Pt's abdomen was marked and prepped and draped in the usual sterile fashion. Ultrasound-guided large volume paracentesis performed. A total of 9 liters of straw colored fluid was removed without complication. IMPRESSION: Ultrasound-guided large volume paracentesis.
[2016-09-02 12:35] LABS: BLOOD UREA NITROGEN 53 mg/dl (9-20); CALCIUM 7.9 mg/dL (8.4-10.2); CARBON DIOXIDE 26 mmol/L (22-30); CHLORIDE 105 mmol/L (98-107); GFR AFRICAN-AMERICAN > 60; GLUCOSE,RANDOM 133 mg/dL (75-110); POTASSIUM 4.1 MMOL/L (3.6-5.0); SODIUM 139 mmol/l (132-148)
--- NOTE | 2016-09-02 13:00 | CP.PCM.PN ---
Subjective - Date & Time of Evaluation Date of Evaluation: 09/02/16 Time of Evaluation: 08:00 - Subjective Subjective: cellulitis less abd distended denies chest pain Objective - Vital Signs/Intake and Output Vital Signs (last 24 hours): Temp Pulse Resp BP Pulse Ox 98.2 F 75 20 116/54 L 95 09/02/16 08:00 09/02/16 09:00 09/02/16 08:00 09/02/16 08:17 09/02/16 08:00 Intake and Output: 09/02/16 09/02/16 06:59 18:59 Intake Total 370 Output Total 680 Balance -310 - Medications Medications: Current Medications Albuterol Sulfate (Albuterol 0.083% Inhal Silvia (2.5 Mg/3 Ml) Ud) 2.5 mg INH RQ4 PRN PRN Reason: Shortness of Breath Albuterol/Ipratropium (Duoneb 3 Mg/0.5 Mg (3 Ml) Ud) 3 ml INH RQID [facility] Last Admin: 09/02/16 11:45 Dose: 3 ml Furosemide (Lasix) 40 mg IVP BID [facility] Last Admin: 09/02/16 08:17 Dose: 40 mg Hydrocortisone (Cortizone 1% Cream) 1 applic TOP BID [facility] Last Admin: 09/02/16 08:16 Dose: 1 applic Cefazolin Sodium 1 gm/ Sodium (Chloride) 100 mls @ 100 mls/hr IVPB Q8@0500,1300 ,2100 [facility] Last Admin: 09/02/16 12:52 Dose: 100 mls/hr Lactulose (Enulose) 20 gm PO BID [facility] Last Admin: 09/02/16 08:16 Dose: Not Given Lidocaine (Lidoderm) 1 ea TD DAILY [facility] Last Admin: 09/02/16 08:17 Dose: Not Given Metolazone (Zaroxolyn) 2.5 mg PO DAILY [facility] Last Admin: 09/02/16 08:17 Dose: 2.5 mg - Labs Labs: 09/01/16 06:00 09/02/16 12:14 PT 25.8 Seconds (9.8-13.1) H 08/29/16 11:15 INR 2.3 (0.9-1.2) H 08/29/16 11:15 APTT 42.0 Seconds (25.6-37.1) H 08/28/16 11:07 - Constitutional Appears: Non-toxic, Chronically Ill - Head Exam Head Exam: ATRAUMATIC, NORMAL INSPECTION, NORMOCEPHALIC - Eye Exam Eye Exam: PERRL. absent: Scleral icterus - ENT Exam ENT Exam: Mucous Membranes Dry, Normal External Ear Exam - Neck Exam Neck Exam: absent: Lymphadenopathy - Respiratory Exam Respiratory Exam: Decreased Breath Sounds, Clear to Ausculation Bilateral - Cardiovascular Exam Cardiovascular Exam: REGULAR RHYTHM, +S1, +S2 - GI/Abdominal Exam GI & Abdominal Exam: Distended, Soft. absent: Tenderness - Rectal Exam Rectal Exam: Deferred - Exam Exam: NORMAL INSPECTION - Extremities Exam Extremities Exam: absent: Pedal Edema - Back Exam Back Exam: absent: CVA tenderness (L), CVA tenderness (R) - Neurological Exam Neurological Exam: Alert, Awake, Oriented x3 - Psychiatric Exam Psychiatric exam: Depressed - Skin Skin Exam: Dry Assessment and Plan (1) Elevated troponin Status: Acute (2) Hepatic encephalopathy Status: Acute (3) SOB (shortness of breath) Status: Acute (4) Ascites of liver Status: Acute (5) Erysipelas of lower extremity Status: Acute (6) Intractable low back pain Status: Acute (7) Cirrhosis of liver with ascites Status: Chronic (8) Leg edema Status: Chronic
[2016-09-02 13:06] VITALS: BP 113/56; PULSE 79; TEMP 97.3; O2SAT 96
--- NOTE | 2016-09-02 16:20 | CP.PCM.PN ---
Subjective - Date & Time of Evaluation Date of Evaluation: 09/02/16 Time of Evaluation: 22:22 - Subjective Subjective: Paracentesis done SOB improved Objective - Vital Signs/Intake and Output Vital Signs (last 24 hours): Temp Pulse Resp BP Pulse Ox 97.3 F L 79 20 113/56 L 96 09/02/16 13:00 09/02/16 13:00 09/02/16 13:00 09/02/16 13:00 09/02/16 13:00 Intake and Output: 09/02/16 09/02/16 06:59 18:59 Intake Total 370 800 Output Total 680 500 Balance -310 300 - Labs Labs: 09/01/16 06:00 09/02/16 12:14 PT 25.8 Seconds (9.8-13.1) H 08/29/16 11:15 INR 2.3 (0.9-1.2) H 08/29/16 11:15 APTT 42.0 Seconds (25.6-37.1) H 08/28/16 11:07 - Respiratory Exam Respiratory Exam: NORMAL BREATHING PATTERN - Cardiovascular Exam Cardiovascular Exam: REGULAR RHYTHM - GI/Abdominal Exam GI & Abdominal Exam: Normal Bowel Sounds Assessment and Plan - Assessment and Plan (Free Text) Assessment: Cirrhosis Hepatosplenomegaly Hepatic encephalopathy Portal HTN ascites etiol?? Pancytopenia Low prot/alb s/p paracentesis x2 Lasix zaroxylyn Lactulose ?? Aldactone CKD? Hepatorenal? GI Nephrology Liver transplant? TIPS SOB? 2 to ascites Duoneb Pulmonary note appreciated Lower extremity edema with erythema Leg elevation Lasix Cefazolin ID Podiatry +troponin EKG no changes 2 to Renal dx Cardiology Telemetry CE ] Low back pain etiol? improved Physiatry consult A-fib/ rate controlled Amiodorone INR 2.0 Cardiology
== END 2016-09-02 14:58 | DRG 442 ==
LOC: H.ER 10:00 → H.ERHOLD 13:19 → H.TEL 14:35
PROVIDERS: ADMIT Family Medicine Geriatric Medicine; ATTEND Family Medicine Geriatric Medicine
PROC: 0W9G3ZZ Drainage of Peritoneal Cavity, Percutaneous Approach (ICD-10-PCS; principal; 2016-08-28)
PROC: 0W9G3ZZ Drainage of Peritoneal Cavity, Percutaneous Approach (ICD-10-PCS; 2016-09-01)
DX: K72.90 Hepatic failure, unspecified without coma (principal); D61.818 Other pancytopenia; R18.8 Other ascites; L03.115 Cellulitis of right lower limb; L03.116 Cellulitis of left lower limb; K76.6 Portal hypertension; I48.91 Unspecified atrial fibrillation; N18.3 Chronic kidney disease, stage 3 (moderate); K74.69 Other cirrhosis of liver; A46 Erysipelas; I12.9 Hypertensive chronic kidney disease with stage 1 through stage 4 chronic kidney disease, or unspecified chronic kidney disease; I25.10 Atherosclerotic heart disease of native coronary artery without angina pectoris; Z79.82 Long term (current) use of aspirin; Z87.891 Personal history of nicotine dependence

== ENCOUNTER 2016-09-02 13:22 | Inpatient (IN) | payer OTHER ==
[2016-09-02 14:40] VITALS: BMI 31.9
[2016-09-02] MEDS ORDERED: Albuterol 0.083% Inhal Sol (2.5 mg/3 mL) UD INH PRN (15:43)
[2016-09-02 16:29] VITALS: RESP 20
[2016-09-02] MEDS: ceFAZolin 1 GM in Sodium Chloride 0.9% 100 ML IVPB SCH ×3 (18:00→21:11)
--- NOTE | 2016-09-02 18:50 | CP.PCM.PN ---
Subjective - Date & Time of Evaluation Date of Evaluation: 09/02/16 Time of Evaluation: 09:30 - Subjective Subjective: Clinically better. Alert and comfortable. Had parascentesis yesterday Objective - Vital Signs/Intake and Output Vital Signs (last 24 hours): Temp Pulse Resp BP Pulse Ox 79 20 110/44 L 98 09/02/16 16:03 09/02/16 15:38 09/02/16 18:04 09/02/16 16:03 - Medications Medications: Current Medications Albuterol Sulfate (Albuterol 0.083% Inhal Silvia (2.5 Mg/3 Ml) Ud) 2.5 mg INH RQ4 PRN PRN Reason: Shortness of Breath Furosemide (Lasix) 40 mg IVP BID [facility] Last Admin: 09/02/16 18:04 Dose: 40 mg Hydrocortisone (Cortizone 1% Cream) 1 applic TOP BID [facility] Last Admin: 09/02/16 18:04 Dose: 1 unit Cefazolin Sodium 1 gm/ Sodium (Chloride) 100 mls @ 100 mls/hr IVPB Q8 [facility] Last Admin: 09/02/16 18:01 Dose: Not Given Lactulose (Enulose) 20 gm PO BID [facility] Last Admin: 09/02/16 18:03 Dose: 20 gm Lidocaine (Lidoderm) 1 ea TD DAILY [facility] Metolazone (Zaroxolyn) 2.5 mg PO DAILY [facility] - Head Exam Head Exam: ATRAUMATIC - Eye Exam Eye Exam: Normal appearance - ENT Exam ENT Exam: Mucous Membranes Moist - Respiratory Exam Respiratory Exam: Clear to Ausculation Bilateral - Cardiovascular Exam Cardiovascular Exam: REGULAR RHYTHM - GI/Abdominal Exam GI & Abdominal Exam: Distended, Soft, Normal Bowel Sounds Assessment and Plan (1) Ascites of liver Assessment & Plan: Clinically better and renal functional trending to improvement. Stable for transfer to rehab or home Status: Acute
[2016-09-03] MEDS: ceFAZolin 1 GM in Sodium Chloride 0.9% 100 ML IVPB SCH ×3 (04:51→20:57)
[2016-09-03] MEDS: Lidocaine 5% Patch TD SCH (08:54)
[2016-09-03] MEDS: metOLazone 2.5 MG TAB PO SCH (08:55)
--- NOTE | 2016-09-03 14:51 | CP.PCM.CON ---
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 HE WAS TREATED WITH LACTULOSE AND PARACENTESIS AND IMPROVED AND WAS NOW DISCHARGED TO TCU. HE HAS A HISTORY OF ATRIAL FIBRILLATION AND CONVERTED TO SINUS RHYTHM ON AMIODARONE WHICH WAS RECENTLY STOPPED DUE TO THE CIRRHOSIS WITH HEPATIC ENCEPHALOPATHY. CARDIOLOGY WAS ASKED TO FOLLOW HIM. HE DENIES CHEST PAIN OR SOB. Past Patient History - Past Medical History & Family History Past Medical History?: Yes - Past Social History Smoking Status: Former Smoker - CARDIAC Hx Atrial Fibrillation: Yes Hx Heart Murmur: Yes Hx Hypertension: Yes Hx Peripheral Edema: Yes - PULMONARY Hx Respiratory Disorders: No - NEUROLOGICAL Hx Neurological Disorder: No - HEENT Hx HEENT Problems: No - RENAL Hx Chronic Kidney Disease: No - ENDOCRINE/METABOLIC Hx Endocrine Disorders: No - HEMATOLOGICAL/ONCOLOGICAL Hx Blood Disorders: No Hx AIDS: No Hx Human Immunodeficiency Virus (HIV): No - INTEGUMENTARY Hx Cellulitis: Yes - MUSCULOSKELETAL/RHEUMATOLOGICAL Hx Arthritis: Yes Hx Falls: No - GASTROINTESTINAL Hx Gastrointestinal Disorders: No Other/Comment: Liver Cirrhosis with ascites - GENITOURINARY/GYNECOLOGICAL Hx Genitourinary Disorders: No - PSYCHIATRIC Hx Psychophysiologic Disorder: No Hx Substance Use: No - SURGICAL HISTORY Hx Surgeries: Yes Other/Comment: 2000 arthroscopic knee surgery - ANESTHESIA Hx Anesthesia: Yes Hx Anesthesia Reactions: No Hx Malignant Hyperthermia: No Meds Allergies/Adverse Reactions: Allergies Allergy/AdvReac Type Severity Reaction Status Date / Time No Known Allergies Allergy Verified 09/02/16 14:40 - Medications Medications: Current Medications Albuterol Sulfate (Albuterol 0.083% Inhal Silvia (2.5 Mg/3 Ml) Ud) 2.5 mg INH RQ4 PRN PRN Reason: Shortness of Breath Furosemide (Lasix) 40 mg IVP BID [facility] Last Admin: 09/03/16 08:55 Dose: 40 mg Hydrocortisone (Cortizone 1% Cream) 1 applic TOP BID [facility] Last Admin: 09/03/16 08:55 Dose: 1 unit Cefazolin Sodium 1 gm/ Sodium (Chloride) 100 mls @ 100 mls/hr IVPB Q8@0500,1300 ,2100 [facility] Last Admin: 09/03/16 12:52 Dose: 100 mls/hr Lactulose (Enulose) 20 gm PO BID [facility] Last Admin: 09/03/16 08:54 Dose: 20 gm Lidocaine (Lidoderm) 1 ea TD DAILY [facility] Last Admin: 09/03/16 08:54 Dose: 1 ea Metolazone (Zaroxolyn) 2.5 mg PO DAILY [facility] Last Admin: 09/03/16 08:55 Dose: 2.5 mg Physical Exam - Respiratory Exam Respiratory Exam: Clear to Auscultation Bilateral - Cardiovascular Exam Cardiovascular Exam: REGULAR RHYTHM, +S1, +S2 - Extremities Exam Additional comments: MILD LOWER EXTREMITY EDEMA - Additional Findings Additional findings: GI NOTE SEEN Results - Vital Signs Recent Vital Signs: Last Vital Signs Temp 97.7 F 09/03/16 08:44 Pulse 79 09/03/16 08:44 Resp 20 09/03/16 08:44 BP 113/48 L 09/03/16 08:55 Pulse Ox 95 09/03/16 08:44 Assessment & Plan - Assessment and Plan (Free Text) Assessment: CIRRHOSIS OF THE LIVER S/P ATRIAL FIBRILLATION-NOW IN SINUS RHYTHM RECENT LE CELLULITIS Plan: THE PATIENT IS ON FUROSEMIDE, ZAROXOLYN AND BRONCHODILATORS
--- NOTE | 2016-09-03 14:57 | CP.PCM.CON ---
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 in TCU . Pt was transferred from regular floor yesterday Renal consult is requested for continued monitoring of renal function. Past Patient History - Past Medical History & Family History Past Medical History?: Yes - Past Social History Smoking Status: Former Smoker - CARDIAC Hx Atrial Fibrillation: Yes Hx Heart Murmur: Yes Hx Hypertension: Yes Hx Peripheral Edema: Yes - PULMONARY Hx Respiratory Disorders: No - NEUROLOGICAL Hx Neurological Disorder: No - HEENT Hx HEENT Problems: No - RENAL Hx Chronic Kidney Disease: No - ENDOCRINE/METABOLIC Hx Endocrine Disorders: No - HEMATOLOGICAL/ONCOLOGICAL Hx Blood Disorders: No Hx AIDS: No Hx Human Immunodeficiency Virus (HIV): No - INTEGUMENTARY Hx Cellulitis: Yes - MUSCULOSKELETAL/RHEUMATOLOGICAL Hx Arthritis: Yes Hx Falls: No - GASTROINTESTINAL Hx Gastrointestinal Disorders: No Other/Comment: Liver Cirrhosis with ascites - GENITOURINARY/GYNECOLOGICAL Hx Genitourinary Disorders: No - PSYCHIATRIC Hx Psychophysiologic Disorder: No Hx Substance Use: No - SURGICAL HISTORY Hx Surgeries: Yes Other/Comment: 2000 arthroscopic knee surgery - ANESTHESIA Hx Anesthesia: Yes Hx Anesthesia Reactions: No Hx Malignant Hyperthermia: No Meds Allergies/Adverse Reactions: Allergies Allergy/AdvReac Type Severity Reaction Status Date / Time No Known Allergies Allergy Verified 09/02/16 14:40 - Medications Medications: Current Medications Albuterol Sulfate (Albuterol 0.083% Inhal Silvia (2.5 Mg/3 Ml) Ud) 2.5 mg INH RQ4 PRN PRN Reason: Shortness of Breath Furosemide (Lasix) 40 mg IVP BID [facility] Last Admin: 09/03/16 08:55 Dose: 40 mg Hydrocortisone (Cortizone 1% Cream) 1 applic TOP BID [facility] Last Admin: 09/03/16 08:55 Dose: 1 unit Cefazolin Sodium 1 gm/ Sodium (Chloride) 100 mls @ 100 mls/hr IVPB Q8@0500,1300 ,2100 [facility] Last Admin: 09/03/16 12:52 Dose: 100 mls/hr Lactulose (Enulose) 20 gm PO BID [facility] Last Admin: 09/03/16 08:54 Dose: 20 gm Lidocaine (Lidoderm) 1 ea TD DAILY [facility] Last Admin: 09/03/16 08:54 Dose: 1 ea Metolazone (Zaroxolyn) 2.5 mg PO DAILY [facility] Last Admin: 09/03/16 08:55 Dose: 2.5 mg Physical Exam - Constitutional Appears: No Acute Distress - Head Exam Head Exam: ATRAUMATIC, NORMOCEPHALIC - Eye Exam Additional comments: No icterus - ENT Exam ENT Exam: Mucous Membranes Moist - Respiratory Exam Additional comments: Lungs clear - Cardiovascular Exam Cardiovascular Exam: Irregular Rhythm - GI/Abdominal Exam GI & Abdominal Exam: Soft Additional comments: Ascitis - Extremities Exam Extremities exam: Positive for: pedal edema Results - Vital Signs Recent Vital Signs: Last Vital Signs Temp 97.7 F 09/03/16 08:44 Pulse 79 09/03/16 08:44 Resp 20 09/03/16 08:44 BP 113/48 L 09/03/16 08:55 Pulse Ox 95 09/03/16 08:44 Assessment & Plan - Assessment and Plan (Free Text) Assessment: CKD, Hx/o HRS Creatinine is stable. BUN/Creat 56/1.3 on 09/02/16 Liver cirrhosis with portal hypertention S/P paracenthesis A.fib Hx/o HTN Plan: Continue to monitor renal function Continue current meds
--- NOTE | 2016-09-03 15:23 | CP.PCM.PN ---
Subjective - Date & Time of Evaluation Date of Evaluation: 09/03/16 Time of Evaluation: 10:21 - Subjective Subjective: 71 y/o male seen at bedside for bilateral lower extremity edema and erythema, has been resolving. Patient denies any acute events overnight. He appears in NAD and AAOx3. Bilateral legs open to air. He states that a nurse applied Hydrocortisone cream today. Patient denies any pain in his legs at this time. He denies n/f/v/d/c/sob. Objective - Vital Signs/Intake and Output Vital Signs (last 24 hours): Temp Pulse Resp BP Pulse Ox 97.7 F 79 20 113/48 L 95 09/03/16 08:44 09/03/16 08:44 09/03/16 08:44 09/03/16 08:55 09/03/16 08:44 - Medications Medications: Current Medications Albuterol Sulfate (Albuterol 0.083% Inhal Silvia (2.5 Mg/3 Ml) Ud) 2.5 mg INH RQ4 PRN PRN Reason: Shortness of Breath Furosemide (Lasix) 40 mg IVP BID [facility] Last Admin: 09/03/16 08:55 Dose: 40 mg Hydrocortisone (Cortizone 1% Cream) 1 applic TOP BID [facility] Last Admin: 09/03/16 08:55 Dose: 1 unit Cefazolin Sodium 1 gm/ Sodium (Chloride) 100 mls @ 100 mls/hr IVPB Q8@0500,1300 ,2100 [facility] Last Admin: 09/03/16 12:52 Dose: 100 mls/hr Lactulose (Enulose) 20 gm PO BID [facility] Last Admin: 09/03/16 08:54 Dose: 20 gm Lidocaine (Lidoderm) 1 ea TD DAILY [facility] Last Admin: 09/03/16 08:54 Dose: 1 ea Metolazone (Zaroxolyn) 2.5 mg PO DAILY [facility] Last Admin: 09/03/16 08:55 Dose: 2.5 mg - Constitutional Appears: Well, Non-toxic, No Acute Distress - Extremities Exam Additional comments: Vasc: DP 2/4, PT 1/4 b/l, TG wnkl, CFT < 3 sec to all digits, spongy edema neuro: grossly intact derm: resolving erythema, resolving edema, no open lesions, no acute clinical signs of infection ortho: no pain on palpation to bilateral lower extremities - Neurological Exam Neurological Exam: Alert, Awake, Oriented x3 - Psychiatric Exam Psychiatric exam: Normal Affect, Normal Mood - Skin Skin Exam: Normal Color, Warm Assessment and Plan - Assessment and Plan (Free Text) Assessment: 71 y/o male seen at bedside for resolving edema and erythema Plan: patient evaluated and chart reviewed discussed in detail with attending Dr. Clemens labs and vitals reviewed; afebrile cont. hydrocortisone cream topical daily cont. IV abx podiatry will continue to follow while patient remains in house
[2016-09-04] MEDS: ceFAZolin 1 GM in Sodium Chloride 0.9% 100 ML IVPB SCH ×3 (04:19→20:51)
[2016-09-04] MEDS: metOLazone 2.5 MG TAB PO SCH (09:16)
[2016-09-04] MEDS: Lidocaine 5% Patch TD SCH (09:18)
--- NOTE | 2016-09-04 12:52 | CP.PCM.PN ---
Subjective - Date & Time of Evaluation Date of Evaluation: 09/04/16 Time of Evaluation: 11:00 - Subjective Subjective: NO COMPLAINTS Objective - Vital Signs/Intake and Output Vital Signs (last 24 hours): Temp Pulse Resp BP Pulse Ox 97.7 F 77 20 123/85 96 09/04/16 08:56 09/04/16 08:56 09/04/16 08:56 09/04/16 09:27 09/04/16 08:56 - Medications Medications: Current Medications Albuterol Sulfate (Albuterol 0.083% Inhal Silvia (2.5 Mg/3 Ml) Ud) 2.5 mg INH RQ4 PRN PRN Reason: Shortness of Breath Furosemide (Lasix) 40 mg IVP BID [facility] Last Admin: 09/04/16 09:27 Dose: 40 mg Hydrocortisone (Cortizone 1% Cream) 1 applic TOP BID [facility] Last Admin: 09/04/16 09:17 Dose: 1 unit Cefazolin Sodium 1 gm/ Sodium (Chloride) 100 mls @ 100 mls/hr IVPB Q8@0500,1300 ,2100 [facility] Last Admin: 09/04/16 04:19 Dose: 100 mls/hr Lactulose (Enulose) 20 gm PO BID [facility] Last Admin: 09/04/16 09:16 Dose: 20 gm Lidocaine (Lidoderm) 1 ea TD DAILY [facility] Last Admin: 09/04/16 09:18 Dose: 1 ea Metolazone (Zaroxolyn) 2.5 mg PO DAILY [facility] Last Admin: 09/04/16 09:16 Dose: 2.5 mg - Respiratory Exam Respiratory Exam: Clear to Ausculation Bilateral - Cardiovascular Exam Cardiovascular Exam: REGULAR RHYTHM, +S1, +S2 - Extremities Exam Extremities Exam: Pedal Edema Assessment and Plan - Assessment and Plan (Free Text) Assessment: CIRRHOSIS OF THE LIVER S/P ATRIAL FIBRILLATION CELLULITIS Plan: CONTINUE LACTULOSE, FUROSEMIDE, ZAROXOLYN
--- NOTE | 2016-09-04 13:38 | CP.PCM.CON ---
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 [employer] Review of Systems - Constitutional Constitutional: As Per HPI - EENT Eyes: absent: As Per HPI, Blind Spots, Blurred Vision, Change in Vision, Decreased Night Vision, Diplopia, Discharge, Dry Eye, Exophthalmos, Floaters, Irritation, Itchy Eyes, Loss of Peripheral Vision, Pain, Photophobia, Requires Corrective Lenses, Sees Flashes, Spots in Vision, Tunnel Vision, Other Visual Disturbances, Loss of Vision, Other Ears: absent: As Per HPI, Decreased Hearing, Ear Discharge, Ear Pain, Tinnitus, Abnormal Hearing, Disequilibrium, Dizziness, Other Nose/Mouth/Throat: absent: As Per HPI, Epistaxis, Nasal Congestion, Nasal Discharge, Nasal Obstruction, Nasal Trauma, Nose Pain, Post Nasal Drip, Sinus Pain, Sinus Pressure, Bleeding Gums, Change in Voice, Dental Pain, Dry Mouth, Dysphagia, Halitosis, Hoarsness, Lip Swelling, Mouth Lesions, Mouth Pain, Odynophagia, Sore Throat, Throat Swelling, Tongue Swelling, Facial Pain, Neck Pain, Neck Mass, Other - Cardiovascular Cardiovascular: As Per HPI - Respiratory Respiratory: As Per HPI - Gastrointestinal Gastrointestinal: As Per HPI, Abdominal Pain, Bloating. absent: Coffee Ground Emesis - Genitourinary Genitourinary: absent: As Per HPI, Change in Urinary Stream, Difficulty Urinating, Dysuria, Flank Pain, Hematuria, Pyuria, Nocturia, Urinary Incontinence, Urinary Frequency, Urinary Hesitance, Urinary Urgency, Voiding Freq/Small Amts, Freq UTI, Hx Renal/Bladder Calculi, Hx /Renal Surgery, Bladder Distension, Other - Musculoskeletal Musculoskeletal: As Per HPI - Integumentary Integumentary: As Per HPI - Neurological Neurological: As Per HPI, Disequilibrium - Psychiatric Psychiatric: absent: As Per HPI, Abnormal Sleep Pattern, Anhedonia, Anxiety, Auditory Hallucinations, Behavioral Changes, Change in Appetite, Change in Libido, Confusion, Depression, Difficulty Concentrating, Hallucinations, Homicidal Ideation, Hopelessness, Irritability, Memory Loss, Mood Swings, Panic Attacks, Paranoia, Suicidal Ideation, Visual Hallucinations, Tactile Hallucinations, Other - Endocrine Endocrine: absent: As Per HPI, Change in Body Appearance, Change in Libido, Cold Intolorance, Deepening of Voice, Excessive Sweating, Fatigue, Flushing, Heat Intolorance, Increase in Ring/Shoe/Hat Size, Palpitations, Polydipsia, Polyphagia, Polyuria, Other - Hematologic/Lymphatic Hematologic: absent: As Per HPI, Easy Bleeding, Easy Bruising, Lymphadenopathy, Other Past Patient History - Past Medical History & Family History Past Medical History?: Yes - Past Social History Smoking Status: Former Smoker - CARDIAC Hx Atrial Fibrillation: Yes Hx Heart Murmur: Yes Hx Hypertension: Yes Hx Peripheral Edema: Yes - PULMONARY Hx Respiratory Disorders: No - NEUROLOGICAL Hx Neurological Disorder: No - HEENT Hx HEENT Problems: No - RENAL Hx Chronic Kidney Disease: No - ENDOCRINE/METABOLIC Hx Endocrine Disorders: No - HEMATOLOGICAL/ONCOLOGICAL Hx Blood Disorders: No Hx AIDS: No Hx Human Immunodeficiency Virus (HIV): No - INTEGUMENTARY Hx Cellulitis: Yes - MUSCULOSKELETAL/RHEUMATOLOGICAL Hx Arthritis: Yes Hx Falls: No - GASTROINTESTINAL Hx Gastrointestinal Disorders: No Other/Comment: Liver Cirrhosis with ascites - GENITOURINARY/GYNECOLOGICAL Hx Genitourinary Disorders: No - PSYCHIATRIC Hx Psychophysiologic Disorder: No Hx Substance Use: No - SURGICAL HISTORY Hx Surgeries: Yes Other/Comment: 2000 arthroscopic knee surgery - ANESTHESIA Hx Anesthesia: Yes Hx Anesthesia Reactions: No Hx Malignant Hyperthermia: No Meds Allergies/Adverse Reactions: Allergies Allergy/AdvReac Type Severity Reaction Status Date / Time No Known Allergies Allergy Verified 09/02/16 14:40 - Medications Medications: Current Medications Albuterol Sulfate (Albuterol 0.083% Inhal Silvia (2.5 Mg/3 Ml) Ud) 2.5 mg INH RQ4 PRN PRN Reason: Shortness of Breath Furosemide (Lasix) 40 mg IVP BID [facility] Last Admin: 09/04/16 09:27 Dose: 40 mg Hydrocortisone (Cortizone 1% Cream) 1 applic TOP BID [facility] Last Admin: 09/04/16 09:17 Dose: 1 unit Cefazolin Sodium 1 gm/ Sodium (Chloride) 100 mls @ 100 mls/hr IVPB Q8@0500,1300 ,2100 [facility] Last Admin: 09/04/16 13:05 Dose: 100 mls/hr Lactulose (Enulose) 20 gm PO BID [facility] Last Admin: 09/04/16 09:16 Dose: 20 gm Lidocaine (Lidoderm) 1 ea TD DAILY [facility] Last Admin: 09/04/16 09:18 Dose: 1 ea Metolazone (Zaroxolyn) 2.5 mg PO DAILY [facility] Last Admin: 09/04/16 09:16 Dose: 2.5 mg Physical Exam - Constitutional Appears: Non-toxic, Chronically Ill - Head Exam Head Exam: NORMOCEPHALIC - Eye Exam Eye Exam: PERRL, Scleral icterus - ENT Exam ENT Exam: Mucous Membranes Dry, Normal External Ear Exam - Neck Exam Neck exam: Negative for: Lymphadenopathy - Respiratory Exam Respiratory Exam: Decreased Breath Sounds, Rhonchi - Cardiovascular Exam Cardiovascular Exam: REGULAR RHYTHM, +S1, +S2 - GI/Abdominal Exam GI & Abdominal Exam: Diminished Bowel Sounds, Distended, Guarding, Hernia, Soft. absent: Pulsatile Mass, Rebound, Rigid, Tenderness - Rectal Exam Rectal Exam: Deferred - Exam Exam: NORMAL INSPECTION - Extremities Exam Extremities exam: Positive for: pedal edema, tenderness, pedal pulses present. Negative for: calf tenderness - Back Exam Back exam: absent: CVA tenderness (L), CVA tenderness (R), paraspinal tenderness - Neurological Exam Neurological exam: Alert, CN II-XII Intact, Oriented x3, Reflexes Normal - Psychiatric Exam Psychiatric exam: Normal Mood - Skin Skin Exam: Dry, Intact Results - Vital Signs Recent Vital Signs: Last Vital Signs Temp 97.7 F 09/04/16 08:56 Pulse 77 09/04/16 08:56 Resp 20 09/04/16 08:56 BP 123/85 09/04/16 09:27 Pulse Ox 96 09/04/16 08:56 Assessment & Plan (1) Ascites of liver Status: Acute (2) Erysipelas of lower extremity Status: Acute (3) Hepatic encephalopathy Status: Acute Priority: High (4) Chronic kidney disease, stage III (moderate) Status: Chronic - Assessment and Plan (Free Text) Assessment: cont iv rx for possible transfer to [facility]
[2016-09-04 14:48] LABS: BASO # 0.1 K/uL (0.0-0.2); BASO % 0.6 % (0.0-2.0); EOS # 0.8 K/uL (0.0-0.7); EOS % 7.3 % (0.0-4.0); HEMATOCRIT 31.1 % (35.0-51.0); LYMPH % 9.7 % (20.0-40.0); MEAN CELL VOLUME 108.3 fl (80.0-94.0); MEAN CORPUSCULAR HEMOGLOBIN 35.3 pg (27.0-31.0); MEAN CORPUSCULAR HGB CONC 32.7 g/dL (33.0-37.0); MEAN PLATELET VOLUME 9.4 fl (7.2-11.7); MONO # 1.5 K/uL (0.0-0.8); MONO % 14.5 % (0.0-10.0); NEUT # 7.3 K/uL (1.8-7.0); NEUT % 67.9 % (50.0-75.0); WHITE BLOOD COUNT 10.7 K/uL (4.8-10.8)
[2016-09-04 14:58] LABS: ALB/GLOB RATIO 0.5 (1.0-2.1); BILIRUBIN,TOTAL 2.6 mg/dl (0.2-1.3); CALCIUM 7.6 mg/dL (8.4-10.2); POTASSIUM 4.4 MMOL/L (3.6-5.0); TOTAL PROTEIN 7.5 G/DL (6.3-8.2)
[2016-09-04 15:02] LABS: PLATELET COUNT 85 K/uL (130-400)
--- NOTE | 2016-09-04 16:03 | CP.PCM.PN ---
Subjective - Date & Time of Evaluation Date of Evaluation: 09/04/16 Time of Evaluation: 03:35 - Subjective Subjective: Appears comfortable Objective - Vital Signs/Intake and Output Vital Signs (last 24 hours): Temp Pulse Resp BP Pulse Ox 97.7 F 77 20 123/85 96 09/04/16 08:56 09/04/16 08:56 09/04/16 08:56 09/04/16 09:27 09/04/16 08:56 - Medications Medications: Current Medications Albuterol Sulfate (Albuterol 0.083% Inhal Silvia (2.5 Mg/3 Ml) Ud) 2.5 mg INH RQ4 PRN PRN Reason: Shortness of Breath Furosemide (Lasix) 40 mg IVP BID [facility] Last Admin: 09/04/16 09:27 Dose: 40 mg Hydrocortisone (Cortizone 1% Cream) 1 applic TOP BID [facility] Last Admin: 09/04/16 09:17 Dose: 1 unit Cefazolin Sodium 1 gm/ Sodium (Chloride) 100 mls @ 100 mls/hr IVPB Q8@0500,1300 ,2100 [facility] Last Admin: 09/04/16 13:05 Dose: 100 mls/hr Lactulose (Enulose) 20 gm PO BID [facility] Last Admin: 09/04/16 09:16 Dose: 20 gm Lidocaine (Lidoderm) 1 ea TD DAILY [facility] Last Admin: 09/04/16 09:18 Dose: 1 ea Metolazone (Zaroxolyn) 2.5 mg PO DAILY [facility] Last Admin: 09/04/16 09:16 Dose: 2.5 mg - Labs Labs: 09/04/16 14:31 09/04/16 14:31 - Respiratory Exam Respiratory Exam: NORMAL BREATHING PATTERN - Extremities Exam Extremities Exam: Pedal Edema Assessment and Plan - Assessment and Plan (Free Text) Assessment: Stage 111 kidney Dis. Creatinine is stable Liver cirrhosis with portal hypertension/ascitis requiring several paracenthesis Ammonia level is 35 Plan: Stable renal function Continue to monitor
[2016-09-04 18:22] LABS: EOSINOPHIL 4 % (0-7); NEUTROPHIL 77 % (42-75); TOTAL CELLS COUNTED 100
--- NOTE | 2016-09-04 19:01 | CP.PCM.HP ---
History of Present Illness - History of Present Illness History of Present Illness: 71 yo transferred from to [facility] Present on Admission - Present on Admission Any Indicators Present on Admission: No Past Patient History - Past Medical History & Family History Past Medical History?: Yes - Past Social History Smoking Status: Former Smoker - CARDIAC Hx Atrial Fibrillation: Yes Hx Heart Murmur: Yes Hx Hypertension: Yes Hx Peripheral Edema: Yes - PULMONARY Hx Respiratory Disorders: No - NEUROLOGICAL Hx Neurological Disorder: No - HEENT Hx HEENT Problems: No - RENAL Hx Chronic Kidney Disease: No - ENDOCRINE/METABOLIC Hx Endocrine Disorders: No - HEMATOLOGICAL/ONCOLOGICAL Hx Blood Disorders: No Hx AIDS: No Hx Human Immunodeficiency Virus (HIV): No - INTEGUMENTARY Hx Cellulitis: Yes - MUSCULOSKELETAL/RHEUMATOLOGICAL Hx Arthritis: Yes Hx Falls: No - GASTROINTESTINAL Hx Gastrointestinal Disorders: No Other/Comment: Liver Cirrhosis with ascites - GENITOURINARY/GYNECOLOGICAL Hx Genitourinary Disorders: No - PSYCHIATRIC Hx Psychophysiologic Disorder: No Hx Substance Use: No - SURGICAL HISTORY Hx Surgeries: Yes Other/Comment: 2000 arthroscopic knee surgery - ANESTHESIA Hx Anesthesia: Yes Hx Anesthesia Reactions: No Hx Malignant Hyperthermia: No Meds Allergies/Adverse Reactions: Allergies Allergy/AdvReac Type Severity Reaction Status Date / Time No Known Allergies Allergy Verified 09/02/16 14:40 Physical Exam - Respiratory Exam Respiratory Exam: NORMAL BREATHING PATTERN - Cardiovascular Exam Cardiovascular Exam: REGULAR RHYTHM - GI/Abdominal Exam GI & Abdominal Exam: Normal Bowel Sounds Results - Vital Signs Recent Vital Signs: Last Vital Signs Temp 97.9 F 09/04/16 16:30 Pulse 77 09/04/16 16:30 Resp 20 09/04/16 16:30 BP 111/45 L 09/04/16 18:05 Pulse Ox 97 09/04/16 16:30 - Labs Result Diagrams: 09/04/16 14:31 09/04/16 14:31 Labs: Laboratory Results - last 24 hr 09/04/16 09/04/16 09/04/16 14:31 14:31 14:31 WBC 10.7 RBC 2.87 L Hgb 10.2 L Hct 31.1 L MCV 108.3 H MCH 35.3 H MCHC 32.7 L RDW 18.0 H Plt Count 85 L MPV 9.4 Neut % (Auto) 67.9 Lymph % (Auto) 9.7 L Bartholomew % (Auto) 14.5 H Eos % (Auto) 7.3 H Baso % (Auto) 0.6 Neut # 7.3 H Lymph # 1.0 Bartholomew # 1.5 H Eos # 0.8 H Baso # 0.1 Neutrophils % (Manual) 77 H Band Neutrophils % 1 Lymphocytes % (Manual) 9 L Monocytes % (Manual) 9 Eosinophils % (Manual) 4 Platelet Estimate Decreased L Hypochromasia (manual) TEST NOT PERFORMED Anisocytosis (manual) Slight Macrocytosis (manual) Slight Sodium 142 Potassium 4.4 Chloride 105 Carbon Dioxide 25 Anion Gap 17 BUN 58 H Creatinine 1.7 H Est GFR ( Amer) 49 Est GFR (Non-Af Amer) 40 Random Glucose 139 H Calcium 7.6 L Total Bilirubin 2.6 H AST 64 H ALT 24 Alkaline Phosphatase 87 Ammonia 35 D Total Protein 7.5 Albumin 2.6 L Globulin 4.9 H Albumin/Globulin Ratio 0.5 L Assessment & Plan - Assessment and Plan (Free Text) Assessment: Cirrhosis Hepatosplenomegaly Hepatic encephalopathy Portal HTN ascites etiol?? Pancytopenia Low prot/alb s/p paracentesis x2 Lasix zaroxylyn Lactulose ?? Aldactone CKD? Hepatorenal? GI Nephrology Liver transplant? TIPS ? SOB? 2 to ascites Duoneb Pulmonary note appreciated Lower extremity edema with erythema Leg elevation Lasix Cefazolin ID Podiatry +troponin EKG no changes 2 to Renal dx Cardiology Telemetry CE ] Low back pain etiol? improved Physiatry consult A-fib/ rate controlled Amiodorone INR 2.0 Cardiology - Date & Time Date: 09/04/16 Time: 22:22
[2016-09-05] MEDS: ceFAZolin 1 GM in Sodium Chloride 0.9% 100 ML IVPB SCH ×3 (04:54→21:28)
--- NOTE | 2016-09-05 06:39 | CP.PCM.PN ---
Subjective - Date & Time of Evaluation Date of Evaluation: 09/05/16 Time of Evaluation: 15:45 - Subjective Subjective: 71 y/o male seen in TCU today for f/u of bilateral lower extremity edema and erythema, has been resolving. Patient denies any acute events overnight. He appears in NAD and AAOx3. Bilateral legs open to air. Seen in hallway with PT today. Says therapy has been going well, feeling much better and breathing better also. Denies any pain or discomfort to the legs. Denies any other complaints today. Objective - Vital Signs/Intake and Output Vital Signs (last 24 hours): Temp Pulse Resp BP Pulse Ox 97.7 F 81 20 100/57 L 97 09/04/16 21:47 09/04/16 21:47 09/04/16 21:47 09/04/16 21:47 09/04/16 21:47 - Medications Medications: Current Medications Albuterol Sulfate (Albuterol 0.083% Inhal Silvia (2.5 Mg/3 Ml) Ud) 2.5 mg INH RQ4 PRN PRN Reason: Shortness of Breath Furosemide (Lasix) 40 mg IVP BID [facility] Last Admin: 09/04/16 18:05 Dose: 40 mg Hydrocortisone (Cortizone 1% Cream) 1 applic TOP BID [facility] Last Admin: 09/04/16 17:41 Dose: 1 unit Cefazolin Sodium 1 gm/ Sodium (Chloride) 100 mls @ 100 mls/hr IVPB Q8@0500,1300 ,2100 [facility] Last Admin: 09/05/16 04:54 Dose: 100 mls/hr Lactulose (Enulose) 20 gm PO BID [facility] Last Admin: 09/04/16 17:41 Dose: 20 gm Lidocaine (Lidoderm) 1 ea TD DAILY [facility] Last Admin: 09/04/16 09:18 Dose: 1 ea Metolazone (Zaroxolyn) 2.5 mg PO DAILY [facility] Last Admin: 09/04/16 09:16 Dose: 2.5 mg - Labs Labs: 09/04/16 14:31 09/04/16 14:31 - Constitutional Appears: Non-toxic, No Acute Distress - Extremities Exam Additional comments: Vasc: DP 2/4, PT 1/4 b/l, TG wnl, CFT < 3 sec to all digits, spongy edema neuro: grossly intact derm: resolving erythema, resolving edema, no open lesions, no acute clinical signs of infection ortho: no pain on palpation to bilateral lower extremities - Neurological Exam Neurological Exam: Alert, Awake, Oriented x3 - Psychiatric Exam Psychiatric exam: Normal Affect, Normal Mood Assessment and Plan - Assessment and Plan (Free Text) Assessment: 71 y/o male seen at bedside for resolving edema and erythema Plan: patient S&E and chart reviewed Discussed in detail with attending Dr. Clemens labs and vitals reviewed; afebrile cont. hydrocortisone cream topical daily per nursing cont. IV abx podiatry will continue to follow while patient remains in house
[2016-09-05] MEDS: Lidocaine 5% Patch TD SCH (08:51)
[2016-09-05] MEDS: metOLazone 2.5 MG TAB PO SCH (08:52)
--- NOTE | 2016-09-05 12:58 | CP.PCM.PN ---
Subjective - Date & Time of Evaluation Date of Evaluation: 09/05/16 Time of Evaluation: 10:00 - Subjective Subjective: NO CHEST PAIN BREATHING WELL Objective - Vital Signs/Intake and Output Vital Signs (last 24 hours): Temp Pulse Resp BP Pulse Ox 98.6 F 78 20 105/51 L 20 L 09/05/16 08:16 09/05/16 08:16 09/05/16 08:16 09/05/16 08:52 09/05/16 08:16 - Medications Medications: Current Medications Albuterol Sulfate (Albuterol 0.083% Inhal Silvia (2.5 Mg/3 Ml) Ud) 2.5 mg INH RQ4 PRN PRN Reason: Shortness of Breath Furosemide (Lasix) 40 mg IVP BID@0900,2100 [facility] Hydrocortisone (Cortizone 1% Cream) 1 applic TOP BID [facility] Last Admin: 09/05/16 08:50 Dose: 1 unit Cefazolin Sodium 1 gm/ Sodium (Chloride) 100 mls @ 100 mls/hr IVPB Q8@0500,1300 ,2100 [facility] Last Admin: 09/05/16 12:55 Dose: 100 mls/hr Lactulose (Enulose) 20 gm PO BID [facility] Last Admin: 09/05/16 08:51 Dose: 20 gm Lidocaine (Lidoderm) 1 ea TD DAILY [facility] Last Admin: 09/05/16 08:51 Dose: 1 ea Metolazone (Zaroxolyn) 2.5 mg PO DAILY [facility] Last Admin: 09/05/16 08:52 Dose: 2.5 mg - Labs Labs: 09/04/16 14:31 09/04/16 14:31 - Respiratory Exam Respiratory Exam: Clear to Ausculation Bilateral - Cardiovascular Exam Cardiovascular Exam: REGULAR RHYTHM, +S1, +S2 - Extremities Exam Extremities Exam: Pedal Edema Assessment and Plan - Assessment and Plan (Free Text) Assessment: CIRRHOSIS OF THE LIVER STABLE CARDIAC STATUS AT PRESENT Plan: CONTINUE FUROSEMIDE AND ZAROXOLYN FOR HEPATIC EVALUATION AT [facility]. MAY BE [employer] C[employer]ATE
--- NOTE | 2016-09-05 20:03 | CP.PCM.PN ---
Subjective - Date & Time of Evaluation Date of Evaluation: 09/05/16 Time of Evaluation: 22:22 - Subjective Subjective: D/W Spouse regarding appt with GI at [facility] Objective - Vital Signs/Intake and Output Vital Signs (last 24 hours): Temp Pulse Resp BP Pulse Ox 97.9 F 76 20 108/46 L 96 09/05/16 16:19 09/05/16 16:19 09/05/16 16:19 09/05/16 16:19 09/05/16 16:19 - Medications Medications: Current Medications Albuterol Sulfate (Albuterol 0.083% Inhal Silvia (2.5 Mg/3 Ml) Ud) 2.5 mg INH RQ4 PRN PRN Reason: Shortness of Breath Furosemide (Lasix) 40 mg IVP BID@0900,2100 [facility] Hydrocortisone (Cortizone 1% Cream) [address] [facility] Last Admin: 09/05/16 17:32 Dose: 1 unit Cefazolin Sodium 1 gm/ Sodium (Chloride) 100 mls @ 100 mls/hr IVPB Q8@0500,1300 ,2100 [facility] Last Admin: 09/05/16 12:55 Dose: 100 mls/hr Lactulose (Enulose) 20 gm PO BID [facility] Last Admin: 09/05/16 17:32 Dose: 20 gm Lidocaine (Lidoderm) [address] [facility] Last Admin: 09/05/16 08:51 Dose: 1 ea Metolazone (Zaroxolyn) 2.[address] [facility] Last Admin: 09/05/16 08:52 Dose: 2.5 mg - Labs Labs: 09/04/16 14:31 09/04/16 14:31 - Respiratory Exam Respiratory Exam: NORMAL BREATHING PATTERN - Cardiovascular Exam Cardiovascular Exam: REGULAR RHYTHM - GI/Abdominal Exam GI & Abdominal Exam: Normal Bowel Sounds Assessment and Plan - Assessment and Plan (Free Text) Assessment: Cirrhosis Hepatosplenomegaly Hepatic encephalopathy Portal HTN ascites etiol?? Pancytopenia Low prot/alb s/p paracentesis x2 Lasix zaroxylyn Lactulose ?? Aldactone CKD? Hepatorenal? GI Nephrology Liver transplant? TIPS ? SOB? 2 to ascites Duoneb Pulmonary note appreciated Lower extremity edema with erythema Leg elevation Lasix Cefazolin ID Podiatry +troponin EKG no changes 2 to Renal dx Cardiology Telemetry CE ] Low back pain etiol? improved Physiatry consult A-fib/ rate controlled Amiodorone INR 2.0 Cardiology - Date & Time Date: 09/04/16 Time: 22:22
[2016-09-06] MEDS: ceFAZolin 1 GM in Sodium Chloride 0.9% 100 ML IVPB SCH ×3 (06:49→21:01)
[2016-09-06] MEDS: Lidocaine 5% Patch TD SCH (08:41)
[2016-09-06] MEDS: metOLazone 2.5 MG TAB PO SCH (08:41)
--- NOTE | 2016-09-06 09:10 | CP.PCM.CON ---
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 He has been seen by pulmonary medicine because of shortness of breath and occasional cough which appears to be secondary to the mechanical compromise of his respiratory apparatus because of the tense ascites. After having paracentesis his respiratory symptoms have improved significantly. He has no prior history of pulmonary disease. He is a former cigarette smoker who practices have it for only about 10 years and stopped over 30 years ago. Past Patient History - Past Medical History & Family History Past Medical History?: Yes - Past Social History Smoking Status: Former Smoker - CARDIAC Hx Atrial Fibrillation: Yes Hx Heart Murmur: Yes Hx Hypertension: Yes Hx Peripheral Edema: Yes - PULMONARY Hx Respiratory Disorders: No - NEUROLOGICAL Hx Neurological Disorder: No - HEENT Hx HEENT Problems: No - RENAL Hx Chronic Kidney Disease: No - ENDOCRINE/METABOLIC Hx Endocrine Disorders: No - HEMATOLOGICAL/ONCOLOGICAL Hx Blood Disorders: No Hx AIDS: No Hx Human Immunodeficiency Virus (HIV): No - INTEGUMENTARY Hx Cellulitis: Yes - MUSCULOSKELETAL/RHEUMATOLOGICAL Hx Arthritis: Yes Hx Falls: No - GASTROINTESTINAL Hx Gastrointestinal Disorders: No Other/Comment: Liver Cirrhosis with ascites - GENITOURINARY/GYNECOLOGICAL Hx Genitourinary Disorders: No - PSYCHIATRIC Hx Psychophysiologic Disorder: No Hx Substance Use: No - SURGICAL HISTORY Hx Surgeries: Yes Other/Comment: 2000 arthroscopic knee surgery - ANESTHESIA Hx Anesthesia: Yes Hx Anesthesia Reactions: No Hx Malignant Hyperthermia: No Meds Allergies/Adverse Reactions: Allergies Allergy/AdvReac Type Severity Reaction Status Date / Time No Known Allergies Allergy Verified 09/02/16 14:40 - Medications Medications: Current Medications Albuterol Sulfate (Albuterol 0.083% Inhal Silvia (2.5 Mg/3 Ml) Ud) 2.5 mg INH RQ4 PRN PRN Reason: Shortness of Breath Furosemide (Lasix) 40 mg IVP BID@0900,2100 [facility] Last Admin: 09/06/16 08:41 Dose: 40 mg Hydrocortisone (Cortizone 1% Cream) 1 applic TOP BID [facility] Last Admin: 09/06/16 08:42 Dose: 1 unit Cefazolin Sodium 1 gm/ Sodium (Chloride) 100 mls @ 100 mls/hr IVPB Q8@0500,1300 ,2100 [facility] Last Admin: 09/06/16 06:49 Dose: 100 mls/hr Lactulose (Enulose) 20 gm PO BID [facility] Last Admin: 09/06/16 08:43 Dose: Not Given Lidocaine (Lidoderm) 1 ea TD DAILY [facility] Last Admin: 09/06/16 08:41 Dose: Not Given Metolazone (Zaroxolyn) 2.5 mg PO DAILY [facility] Last Admin: 09/06/16 08:41 Dose: 2.5 mg Physical Exam - Additional Findings Additional findings: Dependant edema has subsided significantly. No cyanosis. Erythema has improved as well. No increased warmth. Neck is supple and trachea midline. Breath sounds are present bilaterally w/o audible wheezes or rales. Results - Vital Signs Recent Vital Signs: Last Vital Signs Temp 98.2 F 09/06/16 08:15 Pulse 78 09/06/16 08:15 Resp 20 09/06/16 08:15 BP 109/52 L 09/06/16 08:41 Pulse Ox 98 09/06/16 08:15 - Labs Result Diagrams: 09/04/16 14:31 09/04/16 14:31 Assessment & Plan (1) SOB (shortness of breath) Status: Resolved Priority: Low (2) Cirrhosis of liver with ascites Status: Chronic Priority: High - Assessment and Plan (Free Text) Plan: No intervention from a pulmonary standpoint. - Date & Time Date: 09/06/16 Time: 10:59
--- NOTE | 2016-09-06 10:00 | CP.PCM.PN ---
Subjective - Date & Time of Evaluation Date of Evaluation: 09/06/16 Time of Evaluation: 09:45 - Subjective Subjective: NO CHEST PAIN OR SOB FEELS BETTER Objective - Vital Signs/Intake and Output Vital Signs (last 24 hours): Temp Pulse Resp BP Pulse Ox 98.2 F 78 20 109/52 L 98 09/06/16 08:15 09/06/16 08:15 09/06/16 08:15 09/06/16 08:41 09/06/16 08:15 - Medications Medications: Current Medications Albuterol Sulfate (Albuterol 0.083% Inhal Silvia (2.5 Mg/3 Ml) Ud) 2.5 mg INH RQ4 PRN PRN Reason: Shortness of Breath Furosemide (Lasix) 40 mg IVP BID@0900,2100 [facility] Last Admin: 09/06/16 08:41 Dose: 40 mg Hydrocortisone (Cortizone 1% Cream) 1 applic TOP BID [facility] Last Admin: 09/06/16 08:42 Dose: 1 unit Cefazolin Sodium 1 gm/ Sodium (Chloride) 100 mls @ 100 mls/hr IVPB Q8@0500,1300 ,2100 [facility] Last Admin: 09/06/16 06:49 Dose: 100 mls/hr Lactulose (Enulose) 20 gm PO BID [facility] Last Admin: 09/06/16 08:43 Dose: Not Given Lidocaine (Lidoderm) 1 ea TD DAILY [facility] Last Admin: 09/06/16 08:41 Dose: Not Given Metolazone (Zaroxolyn) 2.5 mg PO DAILY [facility] Last Admin: 09/06/16 08:41 Dose: 2.5 mg - Labs Labs: 09/04/16 14:31 09/04/16 14:31 - Respiratory Exam Respiratory Exam: Clear to Ausculation Bilateral - Cardiovascular Exam Cardiovascular Exam: REGULAR RHYTHM, +S1, +S2 - Extremities Exam Additional comments: MILD LE EDEMA Assessment and Plan - Assessment and Plan (Free Text) Assessment: CIRRHOSIS OF THE LIVER STABLE CARDIAC STATUS Plan: CONTINUE FUROSEMIDE, ZAROXOLYN, BRONCHODILATORS
--- NOTE | 2016-09-06 13:30 | CP.PCM.PN ---
Subjective - Date & Time of Evaluation Date of Evaluation: 09/06/16 Time of Evaluation: 13:28 - Subjective Subjective: No new events reported overnight Patient appears to be stable No significant changes clinically although his breathing much better Physical exam Chest no significant rales Heart no rubs Abdomen less distention after he has a twice paracentesis and less ascites Impression and plan Kidney function remains stable with CK D stage III Liver cirrhosis as described Continue the same management Objective - Vital Signs/Intake and Output Vital Signs (last 24 hours): Temp Pulse Resp BP Pulse Ox 98.2 F 78 20 115/43 L 98 09/06/16 08:15 09/06/16 10:24 09/06/16 08:15 09/06/16 10:24 09/06/16 10:24 - Medications Medications: Current Medications Albuterol Sulfate (Albuterol 0.083% Inhal Silvia (2.5 Mg/3 Ml) Ud) 2.5 mg INH RQ4 PRN PRN Reason: Shortness of Breath Furosemide (Lasix) 40 mg IVP BID@0900,2100 [facility] Last Admin: 09/06/16 08:41 Dose: 40 mg Hydrocortisone (Cortizone 1% Cream) 1 applic TOP BID [facility] Last Admin: 09/06/16 08:42 Dose: 1 unit Cefazolin Sodium 1 gm/ Sodium (Chloride) 100 mls @ 100 mls/hr IVPB Q8@0500,1300 ,2100 [facility] Last Admin: 09/06/16 12:21 Dose: 100 mls/hr Lactulose (Enulose) 20 gm PO BID [facility] Last Admin: 09/06/16 08:43 Dose: Not Given Lidocaine (Lidoderm) 1 ea TD DAILY [facility] Last Admin: 09/06/16 08:41 Dose: Not Given Metolazone (Zaroxolyn) 2.5 mg PO DAILY [facility] Last Admin: 09/06/16 08:41 Dose: 2.5 mg - Labs Labs: 09/04/16 14:31 09/04/16 14:31
--- NOTE | 2016-09-06 20:50 | CP.PCM.PN ---
Subjective - Date & Time of Evaluation Date of Evaluation: 09/06/16 Time of Evaluation: 22:22 - Subjective Subjective: Multiple calls to specialists and family Objective - Vital Signs/Intake and Output Vital Signs (last 24 hours): Temp Pulse Resp BP Pulse Ox 97.7 F 76 20 100/40 L 98 09/06/16 17:35 09/06/16 17:35 09/06/16 17:35 09/06/16 17:35 09/06/16 17:35 - Medications Medications: Current Medications Albuterol Sulfate (Albuterol 0.083% Inhal Silvia (2.5 Mg/3 Ml) Ud) 2.5 mg INH RQ4 PRN PRN Reason: Shortness of Breath Furosemide (Lasix) 40 mg IVP BID@0900,2100 [facility] Last Admin: 09/06/16 08:41 Dose: 40 mg Hydrocortisone (Cortizone 1% Cream) 1 applic TOP BID [facility] Last Admin: 09/06/16 16:56 Dose: 1 unit Cefazolin Sodium 1 gm/ Sodium (Chloride) 100 mls @ 100 mls/hr IVPB Q8@0500,1300 ,2100 [facility] Last Admin: 09/06/16 12:21 Dose: 100 mls/hr Lactulose (Enulose) 20 gm PO BID [facility] Last Admin: 09/06/16 16:56 Dose: Not Given Lidocaine (Lidoderm) 1 ea TD DAILY [facility] Last Admin: 09/06/16 08:41 Dose: Not Given Metolazone (Zaroxolyn) 2.5 mg PO DAILY [facility] Last Admin: 09/06/16 08:41 Dose: 2.5 mg - Labs Labs: 09/04/16 14:31 09/04/16 14:31 - Respiratory Exam Respiratory Exam: NORMAL BREATHING PATTERN - Cardiovascular Exam Cardiovascular Exam: REGULAR RHYTHM - GI/Abdominal Exam GI & Abdominal Exam: Normal Bowel Sounds Assessment and Plan - Assessment and Plan (Free Text) Assessment: Cirrhosis Hepatosplenomegaly Hepatic encephalopathy Portal HTN ascites etiol?? Pancytopenia Low prot/alb s/p paracentesis x2 Lasix zaroxylyn Lactulose ?? Aldactone CKD? Hepatorenal? GI Nephrology [facility] Liver transplant? TIPS ? SOB? 2 to ascites Duoneb Pulmonary note appreciated Lower extremity edema with erythema Leg elevation Lasix Cefazolin ID Podiatry +troponin EKG no changes 2 to Renal dx Cardiology Telemetry CE ] Low back pain etiol? improved Physiatry consult A-fib/ rate controlled Amiodorone INR 2.0 Cardiology
[2016-09-07] MEDS: ceFAZolin 1 GM in Sodium Chloride 0.9% 100 ML IVPB SCH ×2 (04:54→14:15)
[2016-09-07 07:00] LABS: HEMATOCRIT 28.6 % (35.0-51.0); MEAN CORPUSCULAR HEMOGLOBIN 35.5 pg (27.0-31.0); MEAN CORPUSCULAR HGB CONC 33.5 g/dL (33.0-37.0); RED CELL DISTRIBUTION WIDTH 17.5 % (11.5-14.5); WHITE BLOOD COUNT 9.8 K/uL (4.8-10.8)
[2016-09-07 07:06] LABS: ALB/GLOB RATIO 0.5 (1.0-2.1); BILIRUBIN,TOTAL 2.2 mg/dl (0.2-1.3); CALCIUM 7.6 mg/dL (8.4-10.2); POTASSIUM 4.1 MMOL/L (3.6-5.0); TOTAL PROTEIN 6.8 G/DL (6.3-8.2)
--- NOTE | 2016-09-07 07:48 | CP.PCM.PN ---
Subjective - Date & Time of Evaluation Date of Evaluation: 09/07/16 Time of Evaluation: 07:55 - Subjective Subjective: 71 y/o male seen in TCU today for f/u of bilateral lower extremity edema and erythema which has been resolving over the last few days. Patient seen resting comfortably in bedside chair at time of visit. Patient denies any acute events overnight. He appears in NAD and AAOx3. Bilateral legs open to air. Says therapy has been going well, feeling much better and breathing better also. Patient says that he may be leaving soon and is awaiting an appointment at [facility]. Denies any pain or discomfort to the legs. Denies any other complaints today. Objective - Vital Signs/Intake and Output Vital Signs (last 24 hours): Temp Pulse Resp BP Pulse Ox 97.5 F L 84 20 117/39 L 96 09/06/16 22:00 09/06/16 22:00 09/06/16 22:00 09/06/16 22:00 09/06/16 22:00 - Medications Medications: Current Medications Albuterol Sulfate (Albuterol 0.083% Inhal Silvia (2.5 Mg/3 Ml) Ud) 2.5 mg INH RQ4 PRN PRN Reason: Shortness of Breath Furosemide (Lasix) 40 mg IVP BID@0900,2100 [facility] Last Admin: 09/06/16 21:02 Dose: Not Given Hydrocortisone (Cortizone 1% Cream) 1 applic TOP BID [facility] Last Admin: 09/06/16 16:56 Dose: 1 unit Cefazolin Sodium 1 gm/ Sodium (Chloride) 100 mls @ 100 mls/hr IVPB Q8@0500,1300 ,2100 [facility] Last Admin: 09/07/16 04:54 Dose: 100 mls/hr Lactulose (Enulose) 20 gm PO BID [facility] Last Admin: 09/06/16 16:56 Dose: Not Given Lidocaine (Lidoderm) 1 ea TD DAILY [facility] Last Admin: 09/06/16 08:41 Dose: Not Given Metolazone (Zaroxolyn) 2.5 mg PO DAILY [facility] Last Admin: 09/06/16 08:41 Dose: 2.5 mg - Labs Labs: 09/07/16 06:41 09/07/16 06:41 - Constitutional Appears: Well, Non-toxic, No Acute Distress - Extremities Exam Additional comments: Vasc: DP 2/4, PT 1/4 b/l, TG wnl, CFT < 3 sec to all digits neuro: grossly intact derm: Erythema resolved to B/L lower extremities. Resolving edema, no open lesions, no acute clinical signs of infection ortho: no pain on palpation to bilateral lower extremities Assessment and Plan - Assessment and Plan (Free Text) Assessment: 71 y/o male seen at bedside for resolving edema and erythema Plan: patient seen and evaluated and chart reviewed Discussed in detail with attending Dr. Clemens labs and vitals reviewed; afebrile cont. hydrocortisone cream topical daily per nursing, recommend patient continue with cream as outpatient cont. IV abx podiatry will continue to follow while patient remains in house
[2016-09-07 08:45] VITALS: PULSE 73; TEMP 97.7; O2SAT 99
[2016-09-07] MEDS: metOLazone 2.5 MG TAB PO SCH (08:58)
[2016-09-07] MEDS: Lidocaine 5% Patch TD SCH (08:59)
--- NOTE | 2016-09-07 09:05 | CP.PCM.PN ---
Subjective - Date & Time of Evaluation Date of Evaluation: 09/07/16 Time of Evaluation: 09:00 - Subjective Subjective: NO CHEST PAIN OR SOB FEELS OK Objective - Vital Signs/Intake and Output Vital Signs (last 24 hours): Temp Pulse Resp BP Pulse Ox 97.7 F 73 20 102/52 L 99 09/07/16 08:44 09/07/16 08:44 09/07/16 08:44 09/07/16 08:44 09/07/16 08:44 - Medications Medications: Current Medications Albuterol Sulfate (Albuterol 0.083% Inhal Silvia (2.5 Mg/3 Ml) Ud) 2.5 mg INH RQ4 PRN PRN Reason: Shortness of Breath Furosemide (Lasix) 40 mg IVP BID@0900,2100 [facility] Last Admin: 09/07/16 08:58 Dose: Not Given Hydrocortisone (Cortizone 1% Cream) 1 applic TOP BID [facility] Last Admin: 09/07/16 08:59 Dose: 1 unit Cefazolin Sodium 1 gm/ Sodium (Chloride) 100 mls @ 100 mls/hr IVPB Q8@0500,1300 ,2100 [facility] Last Admin: 09/07/16 04:54 Dose: 100 mls/hr Lactulose (Enulose) 20 gm PO BID [facility] Last Admin: 09/07/16 08:58 Dose: 20 gm Lidocaine (Lidoderm) 1 ea TD DAILY [facility] Last Admin: 09/07/16 08:59 Dose: Not Given Metolazone (Zaroxolyn) 2.5 mg PO DAILY [facility] Last Admin: 09/07/16 08:58 Dose: Not Given - Labs Labs: 09/07/16 06:41 09/07/16 06:41 - Respiratory Exam Respiratory Exam: Clear to Ausculation Bilateral - Cardiovascular Exam Cardiovascular Exam: REGULAR RHYTHM, +S1, +S2 - Extremities Exam Additional comments: LE EDEMA BUT NOT SEVERE BEFORE - Additional Findings Additional findings: BP WAS 98/40 LAST EVENING AND IS LOW NORMAL TODAY BUN/CR INCREASING AGAIN AT 75/1.9 Assessment and Plan - Assessment and Plan (Free Text) Assessment: CIRRHOSIS OF THE LIVER WITH PORTAL HYPERTENSION STABLE CARDIAC STATUS CELLULITIS HYPOTENSION TO LOW NORMAL BLOOD PRESSURE AND RISING BUN/CR ARE PROBABLE DUE TO DIURESIS Plan: CINTINUE LACTULOSE WILL HOLD FUROSEMIDE AND ZAROXOLYN FOR NOW DUE TO THE LOW BLOOD PRESSURE FOR POSSIBLE DISCHARGE IN AM FOR HEPATIC CENTER EVALUATION UPON DISCHARGE
[2016-09-07 10:43] VITALS: BP 102/41
--- NOTE | 2016-09-07 11:09 | CP.PCM.PN ---
Subjective - Date & Time of Evaluation Date of Evaluation: 09/07/16 Time of Evaluation: 11:08 - Subjective Subjective: no changer clinically vital noted creat. 1.9 CKD 3 stable liver cirrhosis ascites leg edema continue same Objective - Vital Signs/Intake and Output Vital Signs (last 24 hours): Temp Pulse Resp BP Pulse Ox 97.7 F 73 20 102/41 L 99 09/07/16 08:44 09/07/16 09:52 09/07/16 08:44 09/07/16 09:52 09/07/16 09:52 - Medications Medications: Current Medications Albuterol Sulfate (Albuterol 0.083% Inhal Silvia (2.5 Mg/3 Ml) Ud) 2.5 mg INH RQ4 PRN PRN Reason: Shortness of Breath Hydrocortisone (Cortizone 1% Cream) 1 applic TOP BID [facility] Last Admin: 09/07/16 08:59 Dose: 1 unit Cefazolin Sodium 1 gm/ Sodium (Chloride) 100 mls @ 100 mls/hr IVPB Q8@0500,1300 ,2100 [facility] Last Admin: 09/07/16 04:54 Dose: 100 mls/hr Lactulose (Enulose) 20 gm PO BID [facility] Last Admin: 09/07/16 08:58 Dose: 20 gm Lidocaine (Lidoderm) 1 ea TD DAILY [facility] Last Admin: 09/07/16 08:59 Dose: Not Given - Labs Labs: 09/07/16 06:41 09/07/16 06:41
--- NOTE | 2016-09-07 17:53 | CP.PCM.PN ---
Subjective - Date & Time of Evaluation Date of Evaluation: 09/07/16 Time of Evaluation: 22:22 - Subjective Subjective: Multiple calls specialist and family regarding pt need to have Albumin and paracentesis. Pt needs to be readmitted to the medical floor Objective - Vital Signs/Intake and Output Vital Signs (last 24 hours): Temp Pulse Resp BP Pulse Ox 97.7 F 73 20 102/41 L 99 09/07/16 08:44 09/07/16 09:52 09/07/16 08:44 09/07/16 09:52 09/07/16 09:52 - Labs Labs: 09/07/16 06:41 09/07/16 06:41 - Respiratory Exam Respiratory Exam: NORMAL BREATHING PATTERN - Cardiovascular Exam Cardiovascular Exam: REGULAR RHYTHM - GI/Abdominal Exam GI & Abdominal Exam: Normal Bowel Sounds Assessment and Plan - Assessment and Plan (Free Text) Assessment: Cirrhosis Hepatosplenomegaly Hepatic encephalopathy Portal HTN ascites etiol?? Pancytopenia Low prot/alb s/p paracentesis x2 Albumin repeat paracentesis Lasix zaroxylyn Lactulose ?? Aldactone CKD? Hepatorenal? GI Nephrology [facility] Liver transplant? TIPS ? SOB? 2 to ascites Duoneb Pulmonary note appreciated Lower extremity edema with erythema Leg elevation Lasix Cefazolin ID Podiatry +troponin EKG no changes 2 to Renal dx Cardiology Telemetry CE ] Low back pain etiol? improved Physiatry consult A-fib/ rate controlled Amiodorone INR 2.0 Cardiology
--- NOTE | 2016-09-08 21:07 | CP.PCM.HP ---
History of Present Illness - History of Present Illness History of Present Illness: 71 yo admitted for paracentesis Present on Admission - Present on Admission Any Indicators Present on Admission: No Past Patient History - Past Medical History & Family History Past Medical History?: Yes - Past Social History Smoking Status: Former Smoker - CARDIAC Hx Atrial Fibrillation: Yes Hx Heart Murmur: Yes Hx Hypertension: Yes Hx Peripheral Edema: Yes - PULMONARY Hx Respiratory Disorders: No - NEUROLOGICAL Hx Neurological Disorder: No - HEENT Hx HEENT Problems: No - RENAL Hx Chronic Kidney Disease: No - ENDOCRINE/METABOLIC Hx Endocrine Disorders: No - HEMATOLOGICAL/ONCOLOGICAL Hx Blood Disorders: No Hx AIDS: No Hx Human Immunodeficiency Virus (HIV): No - INTEGUMENTARY Hx Cellulitis: Yes - MUSCULOSKELETAL/RHEUMATOLOGICAL Hx Arthritis: Yes Hx Falls: No - GASTROINTESTINAL Hx Gastrointestinal Disorders: No Other/Comment: Liver Cirrhosis with ascites - GENITOURINARY/GYNECOLOGICAL Hx Genitourinary Disorders: No - PSYCHIATRIC Hx Psychophysiologic Disorder: No Hx Substance Use: No - SURGICAL HISTORY Hx Surgeries: Yes Other/Comment: 2000 arthroscopic knee surgery - ANESTHESIA Hx Anesthesia: Yes Hx Anesthesia Reactions: No Hx Malignant Hyperthermia: No Meds Allergies/Adverse Reactions: Allergies Allergy/AdvReac Type Severity Reaction Status Date / Time No Known Allergies Allergy Verified 09/07/16 20:08 Physical Exam - Respiratory Exam Respiratory Exam: NORMAL BREATHING PATTERN - Cardiovascular Exam Cardiovascular Exam: REGULAR RHYTHM - GI/Abdominal Exam GI & Abdominal Exam: Normal Bowel Sounds Results - Vital Signs Recent Vital Signs: Last Vital Signs Temp 97.7 F 09/07/16 08:44 Pulse 73 09/07/16 09:52 Resp 20 09/07/16 08:44 BP 102/41 L 09/07/16 09:52 Pulse Ox 99 09/07/16 09:52 - Labs Result Diagrams: 09/07/16 06:41 09/07/16 06:41 Assessment & Plan - Assessment and Plan (Free Text) Assessment: Cirrhosis Hepatosplenomegaly Portal HTN ascites etiol?? S/P Hepatic encephalopathy Pancytopenia Low prot/alb Ascites s/p paracentesis x2 Albumin repeat paracentesis Lasix zaroxylyn Lactulose ?? Aldactone CKD? Hepatorenal? GI Nephrology [facility]? TIPS ? Lower extremity edema with erythema much improved Leg elevation Lasix ID Podiatry A-fib/ rate controlled Amiodorone INR 2.0 Cardiology ] Low back pain etiol? improved Physiatry consult SOB? 2 to ascites [facility] Pulmonary note appreciated - Date & Time Date: 09/08/16 Time: 22:22
== END 2016-09-07 14:56 | disposition short-term general hospital (02) | DRG 433 ==
LOC: H.TCU 14:40
PROVIDERS: ADMIT Family Medicine Geriatric Medicine; ATTEND Family Medicine Geriatric Medicine
PROC: F07Z9FZ Gait Training/Functional Ambulation Treatment using Assistive, Adaptive, Supportive or Protective Equipment (ICD-10-PCS; principal; 2016-09-02)
PROC: F08Z4FZ Home Management Treatment using Assistive, Adaptive, Supportive or Protective Equipment (ICD-10-PCS; 2016-09-02)
PROC: F07M6FZ Therapeutic Exercise Treatment of Musculoskeletal System - Whole Body using Assistive, Adaptive, Supportive or Protective Equipment (ICD-10-PCS; 2016-09-03)
DX: K74.69 Other cirrhosis of liver (principal); D61.818 Other pancytopenia; I95.9 Hypotension, unspecified; R18.8 Other ascites; K76.6 Portal hypertension; L03.115 Cellulitis of right lower limb; I48.91 Unspecified atrial fibrillation; L03.116 Cellulitis of left lower limb; N18.3 Chronic kidney disease, stage 3 (moderate); I12.9 Hypertensive chronic kidney disease with stage 1 through stage 4 chronic kidney disease, or unspecified chronic kidney disease; I25.10 Atherosclerotic heart disease of native coronary artery without angina pectoris; J44.9 Chronic obstructive pulmonary disease, unspecified; I87.8 Other specified disorders of veins; M54.5 Low back pain; Z87.891 Personal history of nicotine dependence

== ENCOUNTER 2016-09-07 15:03 | Inpatient (IN) | payer MEDICARE, BC ==
[2016-09-07 15:04] VITALS: PULSE 82
[2016-09-07 15:42] VITALS: BMI 32.3
--- NOTE | 2016-09-07 15:50 | ED PDOC ---
HPI: General Adult Time Seen by Provider: 09/07/16 15:15 History Per: Patient (is sent for admission by GI so that he can have further treatment of his chronic cirrhosis with ascites. Patient denies pain, dyspnea, fever, headache, nausea, vomiting) History/Exam Limitations: no limitations Onset/Duration Of Symptoms: Gradual Current Symptoms Are (Timing): Still Present Past Medical History Reviewed: Historical Data, Nursing Documentation, Vital Signs Vital Signs: Last Vital Signs Temp 97.5 F L 09/07/16 15:44 Pulse 70 09/07/16 15:44 Resp 16 09/07/16 15:44 BP 100/46 L 09/07/16 15:44 Pulse Ox 97 09/07/16 15:51 - Medical History PMH: Arthritis, Atrial Fibrillation, Back Problems (Chronic), HTN, Peripheral Edema Denies: HIV, Chronic Kidney Disease - Family History Family History: States: Unknown Family Hx, Hypertension - Living Arrangements Living Arrangements: With Family - Home Medications Home Medications: Ambulatory Orders Medication Instructions Recorded Hydrocortisone 1% Cream [Cortizone 1 % TP BID 08/28/16 1% Cream] Lidocaine 5% [Lidoderm] 1 patch TP DAILY 08/28/16 metOLazone [Zaroxolyn] 2.5 mg PO DAILY 08/28/16 Albuterol/Ipratropium [Duoneb 3 3 ml INH RQID 09/02/16 mg/0.5 mg (3 ml) UD] Furosemide [Lasix] 40 mg IVP BID vial 09/02/16 Lactulose [Enulose] 20 gm PO BID 09/02/16 ceFAZolin 1 gm in NS [Ancef 1GM in 1 gm IVPB Q8 #30 bag 09/02/16 NS] - Allergies Allergies/Adverse Reactions: Allergies Allergy/AdvReac Type Severity Reaction Status Date / Time No Known Allergies Allergy Verified 09/02/16 14:40 Review of Systems ROS Statement: Except As Marked, All Systems Reviewed And Found Negative Constitutional: Negative for: Chills, Sweats, Weakness Gastrointestinal: Positive for: Other (grossly enlarged and protuberant abd ). Negative for: Nausea, Vomiting, Abdominal Pain Genitourinary Male: Negative for: Dysuria, Frequency Physical Exam - Reviewed Nursing Documentation Reviewed: Yes Vital Signs Reviewed: Yes - Physical Exam Appears: Positive for: Well, Non-toxic, No Acute Distress Head Exam: Positive for: ATRAUMATIC, NORMAL INSPECTION, NORMOCEPHALIC Skin: Positive for: Normal Color, Warm, DRY Eye Exam: Positive for: EOMI, Normal appearance, PERRL ENT: Positive for: Normal ENT Inspection Neck: Positive for: Normal, Painless ROM Cardiovascular/Chest: Positive for: Regular Rate, Rhythm Respiratory: Positive for: CNT, Normal Breath Sounds Gastrointestinal/Abdominal: Positive for: Normal Exam, Bowel Sounds, Soft Back: Positive for: Normal Inspection Extremity: Positive for: Normal ROM Neurologic/Psych: Positive for: Alert, Oriented - ECG O2 Sat by Pulse Oximetry: 97 Disposition - Clinical Impression Clinical Impression: Cirrhosis of liver with ascites - Patient ED Disposition Is Patient to be Admitted: Yes Doctor Will See Patient In The: Hospital - Disposition Disposition Time: 15:57 Condition: GUARDED - Pt Status Changed To: Hospital Disposition Of: Observation - POA Present On Arrival: None
[2016-09-07] MEDS: Albumin Human 25% (12.5 gm/50 ml) IV SCH (18:05)
--- NOTE | 2016-09-07 20:21 | CP.PCM.CON ---
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 Albumin had been up after albumon infusions but had come down over past days. Review of Systems - Constitutional Constitutional: absent: Anorexia - EENT Eyes: absent: Blind Spots Ears: absent: Decreased Hearing Nose/Mouth/Throat: absent: Epistaxis - Cardiovascular Cardiovascular: absent: Acrocyanosis - Respiratory Respiratory: absent: Cough - Gastrointestinal Gastrointestinal: absent: Abdominal Pain - Genitourinary Genitourinary: absent: Change in Urinary Stream Past Patient History - Infectious Disease Hx of Infectious Diseases: None - Past Medical History & Family History Past Medical History?: Yes - Past Social History Smoking Status: Former Smoker - CARDIAC Hx Atrial Fibrillation: Yes Hx Hypertension: Yes Hx Peripheral Edema: Yes - PULMONARY Hx Respiratory Disorders: No - NEUROLOGICAL Hx Neurological Disorder: No - HEENT Hx HEENT Problems: No - RENAL Hx Chronic Kidney Disease: No - ENDOCRINE/METABOLIC Hx Endocrine Disorders: No - HEMATOLOGICAL/ONCOLOGICAL Hx Human Immunodeficiency Virus (HIV): No - INTEGUMENTARY Hx Cellulitis: Yes - MUSCULOSKELETAL/RHEUMATOLOGICAL Hx Arthritis: Yes - GASTROINTESTINAL Hx Gastrointestinal Disorders: Yes - GENITOURINARY/GYNECOLOGICAL Hx Genitourinary Disorders: No - PSYCHIATRIC Hx Psychophysiologic Disorder: No Hx Substance Use: No - SURGICAL HISTORY Hx Surgeries: Yes Other/Comment: 2000 arthroscopic knee surgery - ANESTHESIA Hx Anesthesia: Yes Hx Anesthesia Reactions: No Hx Malignant Hyperthermia: No Meds Allergies/Adverse Reactions: Allergies Allergy/AdvReac Type Severity Reaction Status Date / Time No Known Allergies Allergy Verified 09/07/16 20:08 - Medications Medications: Current Medications Albumin Human (Albumin Human 25% (12.5 Gm/50 Ml)) 12.5 gm IV Q8H [facility] Stop: 09/09/16 09:46 Last Admin: 09/07/16 18:05 Dose: 12.5 gm Furosemide (Lasix) 40 mg IVP BID [facility] Lactulose (Enulose) 20 gm PO BID PRN PRN Reason: Constipation Physical Exam - Constitutional Appears: Well, No Acute Distress - Eye Exam Eye Exam: Normal appearance - ENT Exam ENT Exam: Mucous Membranes Moist - Respiratory Exam Respiratory Exam: Clear to Auscultation Bilateral - Cardiovascular Exam Cardiovascular Exam: REGULAR RHYTHM, +S1, +S2 - GI/Abdominal Exam GI & Abdominal Exam: Distended, Firm, Normal Bowel Sounds Results - Vital Signs Recent Vital Signs: Last Vital Signs Temp 97.5 F L 09/07/16 19:58 Pulse 72 09/07/16 19:58 Resp 18 09/07/16 19:58 BP 112/56 L 09/07/16 20:15 Pulse Ox 95 09/07/16 19:58 Assessment & Plan (1) Ascites of liver Assessment and Plan: Restart lasix and lactulose. Low salt diet with fluid restriction. IV albumin. Labs in AM . Possible parascentesis tomorrow. Status: Acute
[2016-09-08] MEDS: Albumin Human 25% (12.5 gm/50 ml) IV SCH ×3 (02:19→17:25)
[2016-09-08 06:56] LABS: HEMATOCRIT 28.8 % (35.0-51.0); MEAN CELL VOLUME 106.4 fl (80.0-94.0); MEAN CORPUSCULAR HEMOGLOBIN 35.2 pg (27.0-31.0); MEAN CORPUSCULAR HGB CONC 33.1 g/dL (33.0-37.0); RED CELL DISTRIBUTION WIDTH 17.5 % (11.5-14.5); WHITE BLOOD COUNT 9.6 K/uL (4.8-10.8)
[2016-09-08 07:07] LABS: ALB/GLOB RATIO 0.6 (1.0-2.1); BILIRUBIN,TOTAL 2.5 mg/dl (0.2-1.3); POTASSIUM 4.1 MMOL/L (3.6-5.0); TOTAL PROTEIN 7.5 G/DL (6.3-8.2)
--- NOTE | 2016-09-08 11:02 | CP.PCM.CON ---
History of Present Illness - History of Present Illness History of Present Illness: THE PATIENT IS A 71 YEAR OLD MALE WHO HAS A HISTORY OF CIRRHOSIS OF THE LIVER WITH PORTAL HYPERTENSION AND HE HAS HAD REPEATED PARACENTESIS PROCEDURES. HE WAS IN TCU AND WAS READMITTED TO THE ACUTE CARE SETTING FOR PARACENTESIS. HE ALSO HAD ATRIAL FIBRILLATION MEDICALLY CONVERTED TO SINUS RHYTHM WITH AMIODARONE WHICH WAS RECENTLY DISCONTINUED WHEN HE HAD HEPATIC ENCEPHALOPATHY. CARDIOLOGY WAS ASKED TO FOLLOW HIM. HE DENIES CHEST PAIN, PALPITATIONS OR SOB. Past Patient History - Infectious Disease Hx of Infectious Diseases: None - Past Medical History & Family History Past Medical History?: Yes - Past Social History Smoking Status: Former Smoker - CARDIAC Hx Cardiac Disorders: Yes Hx Atrial Fibrillation: Yes Hx Hypertension: Yes Hx Peripheral Edema: Yes - PULMONARY Hx Respiratory Disorders: No - NEUROLOGICAL Hx Neurological Disorder: No - HEENT Hx HEENT Problems: No Other/Comment: uses eye glasses - RENAL Hx Chronic Kidney Disease: No - ENDOCRINE/METABOLIC Hx Endocrine Disorders: No - HEMATOLOGICAL/ONCOLOGICAL Hx Blood Disorders: No Hx Human Immunodeficiency Virus (HIV): No - INTEGUMENTARY Hx Dermatological Problems: Yes Hx Cellulitis: Yes - MUSCULOSKELETAL/RHEUMATOLOGICAL Hx Musculoskeletal Disorders: Yes Hx Falls: Yes - GASTROINTESTINAL Hx Gastrointestinal Disorders: Yes Other/Comment: Ascites - GENITOURINARY/GYNECOLOGICAL Hx Genitourinary Disorders: No - PSYCHIATRIC Hx Psychophysiologic Disorder: No Hx Substance Use: No - SURGICAL HISTORY Hx Surgeries: Yes Other/Comment: 2000 arthroscopic knee surgery - ANESTHESIA Hx Anesthesia: Yes Hx Anesthesia Reactions: No Hx Malignant Hyperthermia: No Meds Allergies/Adverse Reactions: Allergies Allergy/AdvReac Type Severity Reaction Status Date / Time No Known Allergies Allergy Verified 09/07/16 20:08 - Medications Medications: Current Medications Albumin Human (Albumin Human 25% (12.5 Gm/50 Ml)) 12.5 gm IV Q8H [facility] Stop: 09/09/16 09:46 Last Admin: 09/08/16 02:19 Dose: 12.5 gm Furosemide (Lasix) 40 mg IVP BID [facility] Last Admin: 09/08/16 08:26 Dose: Not Given Lactulose (Enulose) 20 gm PO BID PRN PRN Reason: Constipation Physical Exam - Respiratory Exam Respiratory Exam: Clear to Auscultation Bilateral - Cardiovascular Exam Cardiovascular Exam: REGULAR RHYTHM, +S1, +S2 - Extremities Exam Extremities exam: Positive for: pedal edema - Additional Findings Additional findings: H/H 9.6/[address] 95K BUN/CR 78/2.0 K+ 4.1 Results - Vital Signs Recent Vital Signs: Last Vital Signs Temp 98.0 F 09/08/16 07:34 Pulse 72 09/08/16 07:34 Resp 18 09/08/16 07:34 BP 104/59 L 09/08/16 08:26 Pulse Ox 94 L 09/08/16 07:34 - Labs Result Diagrams: 09/08/16 06:25 09/08/16 06:25 Labs: Laboratory Results - last 24 hr 09/08/16 09/08/16 06:25 06:25 WBC 9.6 RBC 2.71 L Hgb 9.6 L Hct 28.8 L MCV 106.4 H MCH 35.2 H MCHC 33.1 RDW 17.5 H Plt Count 95 L Sodium 138 Potassium 4.1 Chloride 104 Carbon Dioxide 24 Anion Gap 15 BUN 78 H Creatinine 2.0 H Est GFR ( Amer) 40 Est GFR (Non-Af Amer) 33 Random Glucose 81 Calcium 8.0 L Total Bilirubin 2.5 H AST 95 H ALT 33 Alkaline Phosphatase 130 H Total Protein 7.5 Albumin 2.7 L Globulin 4.8 H Albumin/Globulin Ratio 0.6 L Assessment & Plan - Assessment and Plan (Free Text) Assessment: CIRRHOSIS OF THE LIVER WITH ASCITES S/P ATRIAL FIBRILLATION Plan: THE PATIENT WAS DISCHARGED FROM TCU AND ADMITTED TO THE ACUTE CARE SETTING FOR POSSIBLE PARACENTESIS TODAY FOR LIVER CENTER EVALUATION
--- NOTE | 2016-09-08 11:25 | CP.PCM.CON ---
History of Present Illness - History of Present Illness History of Present Illness: Patient transferred to acute care setting from subacute unit for paracentesis with increasing abdominal distention and leg swelling. Patient diagnosis already was advanced liver cirrhosis with recurrent paracentesis requirement In addition patient has a chronic kidney disease stage III which has been stable also has atrial fibrillation which has apparently converted on amiodarone which has been discontinued. Patient also has portal hypertension. Review of Systems - Cardiovascular Cardiovascular: Dyspnea. absent: Chest Pain - Respiratory Respiratory: Dyspnea - Gastrointestinal Gastrointestinal: Abdominal Pain, Bloating - Genitourinary Genitourinary: Nocturia - Musculoskeletal Musculoskeletal: Muscle Weakness Past Patient History - Infectious Disease Hx of Infectious Diseases: None - Past Medical History & Family History Past Medical History?: Yes - Past Social History Smoking Status: Former Smoker - CARDIAC Hx Cardiac Disorders: Yes Hx Atrial Fibrillation: Yes Hx Hypertension: Yes Hx Peripheral Edema: Yes - PULMONARY Hx Respiratory Disorders: No - NEUROLOGICAL Hx Neurological Disorder: No - HEENT Hx HEENT Problems: No Other/Comment: uses eye glasses - RENAL Hx Chronic Kidney Disease: No - ENDOCRINE/METABOLIC Hx Endocrine Disorders: No - HEMATOLOGICAL/ONCOLOGICAL Hx Blood Disorders: No Hx Human Immunodeficiency Virus (HIV): No - INTEGUMENTARY Hx Dermatological Problems: Yes Hx Cellulitis: Yes - MUSCULOSKELETAL/RHEUMATOLOGICAL Hx Musculoskeletal Disorders: Yes Hx Falls: Yes - GASTROINTESTINAL Hx Gastrointestinal Disorders: Yes Other/Comment: Ascites - GENITOURINARY/GYNECOLOGICAL Hx Genitourinary Disorders: No - PSYCHIATRIC Hx Psychophysiologic Disorder: No Hx Substance Use: No - SURGICAL HISTORY Hx Surgeries: Yes Other/Comment: 2000 arthroscopic knee surgery - ANESTHESIA Hx Anesthesia: Yes Hx Anesthesia Reactions: No Hx Malignant Hyperthermia: No Meds Allergies/Adverse Reactions: Allergies Allergy/AdvReac Type Severity Reaction Status Date / Time No Known Allergies Allergy Verified 09/07/16 20:08 - Medications Medications: Current Medications Albumin Human (Albumin Human 25% (12.5 Gm/50 Ml)) 12.5 gm IV Q8H [facility] Stop: 09/09/16 09:46 Last Admin: 09/08/16 02:19 Dose: 12.5 gm Furosemide (Lasix) 40 mg IVP BID [facility] Last Admin: 09/08/16 08:26 Dose: Not Given Lactulose (Enulose) 20 gm PO BID PRN PRN Reason: Constipation Physical Exam - Constitutional Appears: No Acute Distress - ENT Exam ENT Exam: Mucous Membranes Moist - Respiratory Exam Respiratory Exam: Rhonchi. absent: Chest Wall Tenderness - Cardiovascular Exam Cardiovascular Exam: absent: Rubs - GI/Abdominal Exam GI & Abdominal Exam: Distended, Guarding - Extremities Exam Extremities exam: Negative for: calf tenderness - Back Exam Back exam: absent: CVA tenderness (L), CVA tenderness (R) - Neurological Exam Neurological exam: Alert Results - Vital Signs Recent Vital Signs: Last Vital Signs Temp 98.0 F 09/08/16 07:34 Pulse 72 09/08/16 07:34 Resp 18 09/08/16 07:34 BP 104/59 L 09/08/16 08:26 Pulse Ox 94 L 09/08/16 07:34 - Labs Result Diagrams: 09/08/16 06:25 09/08/16 06:25 Labs: Laboratory Results - last 24 hr 09/08/16 09/08/16 06:25 06:25 WBC 9.6 RBC 2.71 L Hgb 9.6 L Hct 28.8 L MCV 106.4 H MCH 35.2 H MCHC 33.1 RDW 17.5 H Plt Count 95 L Sodium 138 Potassium 4.1 Chloride 104 Carbon Dioxide 24 Anion Gap 15 BUN 78 H Creatinine 2.0 H Est GFR ( Amer) 40 Est GFR (Non-Af Amer) 33 Random Glucose 81 Calcium 8.0 L Total Bilirubin 2.5 H AST 95 H ALT 33 Alkaline Phosphatase 130 H Total Protein 7.5 Albumin 2.7 L Globulin 4.8 H Albumin/Globulin Ratio 0.6 L Assessment & Plan (1) Cirrhosis of liver with ascites Status: Chronic Priority: High (2) Chronic kidney disease, stage III (moderate) Assessment and Plan: Patient has CK D stage III which has been stable in addition to advanced liver cirrhosis with advance abdominal ascites Patient going for paracentesis perhaps tomorrow Continue Lasix and Zaroxolyn and also albumin infusion to maintain blood pressure. Prognosis guarded Status: Chronic
[2016-09-08 14:09] LABS: PARTIAL THROMBOPLASTIN TIME 43.1 Seconds (25.6-37.1)
--- NOTE | 2016-09-08 14:26 | PCM.IRP ---
Objective - Medications Medications: Current Medications Albumin Human (Albumin Human 25% (12.5 Gm/50 Ml)) 12.5 gm IV Q8H [facility] Stop: 09/09/16 09:46 Last Admin: 09/08/16 11:38 Dose: 12.5 gm Furosemide (Lasix) 40 mg IVP BID [facility] Last Admin: 09/08/16 08:26 Dose: Not Given Lactulose (Enulose) 20 gm PO BID PRN PRN Reason: Constipation - Labs Labs (last 24 hours): Laboratory Results - last 24 hr 09/08/16 13:46 PT 25.1 H INR 2.2 H APTT 43.1 H Assessment/Plan - Assessment and Plan (Free Text) Assessment: The patient INR is still high (2.2). The bleeding risk is high. Paracentesis should be done once the INR is less than 2. I have communicated this with SCOTT Hurt.
--- NOTE | 2016-09-08 14:40 | CP.PCM.CON ---
History of Present Illness - History of Present Illness History of Present Illness: 71 yo male with hx of cirrhosis and portal HTN admitted to from TCU with worsening ascites and leg swelling Has hx A Fib, ASHD, HTN, CKD III COPD Cirrhosis with portal HTN and recurrent cellulitis and sepsis with ascites Review of Systems - Constitutional Constitutional: Anorexia, Malaise, Weight Gain. absent: Fever - EENT Eyes: absent: As Per HPI, Blind Spots, Blurred Vision, Change in Vision, Decreased Night Vision, Diplopia, Discharge, Dry Eye, Exophthalmos, Floaters, Irritation, Itchy Eyes, Loss of Peripheral Vision, Pain, Photophobia, Requires Corrective Lenses, Sees Flashes, Spots in Vision, Tunnel Vision, Other Visual Disturbances, Loss of Vision, Other Ears: absent: As Per HPI, Decreased Hearing, Ear Discharge, Ear Pain, Tinnitus, Abnormal Hearing, Disequilibrium, Dizziness, Other Nose/Mouth/Throat: absent: As Per HPI, Epistaxis, Nasal Congestion, Nasal Discharge, Nasal Obstruction, Nasal Trauma, Nose Pain, Post Nasal Drip, Sinus Pain, Sinus Pressure, Bleeding Gums, Change in Voice, Dental Pain, Dry Mouth, Dysphagia, Halitosis, Hoarsness, Lip Swelling, Mouth Lesions, Mouth Pain, Odynophagia, Sore Throat, Throat Swelling, Tongue Swelling, Facial Pain, Neck Pain, Neck Mass, Other - Cardiovascular Cardiovascular: As Per HPI - Respiratory Respiratory: As Per HPI, Cough, Dyspnea on Exertion - Gastrointestinal Gastrointestinal: As Per HPI, Abdominal Pain - Genitourinary Genitourinary: absent: As Per HPI, Change in Urinary Stream, Difficulty Urinating, Dysuria, Flank Pain, Hematuria, Pyuria, Nocturia, Urinary Incontinence, Urinary Frequency, Urinary Hesitance, Urinary Urgency, Voiding Freq/Small Amts, Freq UTI, Hx Renal/Bladder Calculi, Hx /Renal Surgery, Bladder Distension, Other - Musculoskeletal Musculoskeletal: absent: As Per HPI, Abnormal Gait, Arthralgias, Atrophy, Back Pain, Deformity, Joint Swelling, Limited Range of Motion, Loss of Height, Muscle Cramps, Muscle Weakness, Myalgias, Neck Pain, Numbness, Radiating Pain into Limb, Stiffness, Tingling, Other - Integumentary Integumentary: As Per HPI - Neurological Neurological: absent: As Per HPI, Abnormal Gait, Abnormal Hearing, Abnormal Movements, Abnormal Speech, Behavioral Changes, Burning Sensations, Confusion, Convulsions, Disequilibrium, Dizziness, Numbness, Focal Weakness, Frequent Falls , Headaches, Lack of Coordination, Loss of Vision, Memory Loss, Paresthesias, Radicular Pain, Restless Legs, Sensory Deficit, Syncope, Tingling, Tremor, Vertigo, Weakness, Other Visual Disturbances, Other - Psychiatric Psychiatric: Depression - Endocrine Endocrine: absent: As Per HPI, Change in Body Appearance, Change in Libido, Cold Intolorance, Deepening of Voice, Excessive Sweating, Fatigue, Flushing, Heat Intolorance, Increase in Ring/Shoe/Hat Size, Palpitations, Polydipsia, Polyphagia, Polyuria, Other - Hematologic/Lymphatic Hematologic: absent: As Per HPI, Easy Bleeding, Easy Bruising, Lymphadenopathy, Other Past Patient History - Infectious Disease Hx of Infectious Diseases: None - Past Medical History & Family History Past Medical History?: Yes - Past Social History Smoking Status: Former Smoker - CARDIAC Hx Cardiac Disorders: Yes Hx Atrial Fibrillation: Yes Hx Hypertension: Yes Hx Peripheral Edema: Yes - PULMONARY Hx Respiratory Disorders: No - NEUROLOGICAL Hx Neurological Disorder: No - HEENT Hx HEENT Problems: No Other/Comment: uses eye glasses - RENAL Hx Chronic Kidney Disease: No - ENDOCRINE/METABOLIC Hx Endocrine Disorders: No - HEMATOLOGICAL/ONCOLOGICAL Hx Blood Disorders: No Hx Human Immunodeficiency Virus (HIV): No - INTEGUMENTARY Hx Dermatological Problems: Yes Hx Cellulitis: Yes - MUSCULOSKELETAL/RHEUMATOLOGICAL Hx Musculoskeletal Disorders: Yes Hx Falls: Yes - GASTROINTESTINAL Hx Gastrointestinal Disorders: Yes Other/Comment: Ascites - GENITOURINARY/GYNECOLOGICAL Hx Genitourinary Disorders: No - PSYCHIATRIC Hx Psychophysiologic Disorder: No Hx Substance Use: No - SURGICAL HISTORY Hx Surgeries: Yes Other/Comment: 2000 arthroscopic knee surgery - ANESTHESIA Hx Anesthesia: Yes Hx Anesthesia Reactions: No Hx Malignant Hyperthermia: No Meds Allergies/Adverse Reactions: Allergies Allergy/AdvReac Type Severity Reaction Status Date / Time No Known Allergies Allergy Verified 09/07/16 20:08 - Medications Medications: Current Medications Albumin Human (Albumin Human 25% (12.5 Gm/50 Ml)) 12.5 gm IV Q8H [facility] Stop: 09/09/16 09:46 Last Admin: 09/08/16 11:38 Dose: 12.5 gm Furosemide (Lasix) 40 mg IVP BID [facility] Last Admin: 09/08/16 08:26 Dose: Not Given Lactulose (Enulose) 20 gm PO BID PRN PRN Reason: Constipation Physical Exam - Constitutional Appears: Non-toxic, Chronically Ill - Head Exam Head Exam: ATRAUMATIC, NORMAL INSPECTION, NORMOCEPHALIC - Eye Exam Eye Exam: EOMI, PERRL. absent: Scleral icterus - ENT Exam ENT Exam: Mucous Membranes Dry, Normal External Ear Exam, Normal Oropharynx - Neck Exam Neck exam: Negative for: Lymphadenopathy, Thyromegaly - Respiratory Exam Respiratory Exam: Decreased Breath Sounds, Rhonchi - Cardiovascular Exam Cardiovascular Exam: Irregular Rhythm, +S1, +S2 - GI/Abdominal Exam GI & Abdominal Exam: Diminished Bowel Sounds, Distended, Soft. absent: Guarding , Normal Bowel Sounds, Rebound, Rigid, Tenderness - Rectal Exam Rectal Exam: Deferred - Exam Exam: NORMAL INSPECTION - Extremities Exam Extremities exam: Positive for: pedal pulses present. Negative for: calf tenderness, pedal edema, tenderness - Back Exam Back exam: absent: CVA tenderness (L), CVA tenderness (R), paraspinal tenderness - Neurological Exam Neurological exam: Alert, CN II-XII Intact, Oriented x3, Reflexes Normal - Psychiatric Exam Psychiatric exam: Depressed - Skin Skin Exam: Dry Results - Vital Signs Recent Vital Signs: Last Vital Signs Temp 98.0 F 09/08/16 07:34 Pulse 72 09/08/16 07:34 Resp 18 09/08/16 07:34 BP 104/59 L 09/08/16 08:26 Pulse Ox 94 L 09/08/16 07:34 - Labs Result Diagrams: 09/08/16 06:25 09/08/16 06:25 Labs: Laboratory Results - last 24 hr 09/08/16 13:46 PT 25.1 H INR 2.2 H APTT 43.1 H Assessment & Plan (1) Cirrhosis of liver with ascites Status: Chronic Priority: High (2) Ascites of liver Status: Acute (3) Erysipelas of lower extremity Status: Acute (4) Intractable low back pain Status: Acute (5) Chronic kidney disease, stage III (moderate) Status: Chronic (6) Leg edema Status: Chronic Priority: High (7) SOB (shortness of breath) Status: Resolved Priority: Low - Assessment and Plan (Free Text) Assessment: idiopathic cirrhosis bilat leg edema recurrent ascites portal HTN r/o hepatorenal syndrome no clearcut evidence of sepsis/ peritonitis at present dr Kyle to re-eval
--- NOTE | 2016-09-08 21:13 | CP.PCM.HP ---
History of Present Illness - History of Present Illness History of Present Illness: 71 yo admitted for paracentesis Present on Admission - Present on Admission Any Indicators Present on Admission: No Past Patient History - Infectious Disease Hx of Infectious Diseases: None - Past Medical History & Family History Past Medical History?: Yes - Past Social History Smoking Status: Former Smoker - CARDIAC Hx Cardiac Disorders: Yes Hx Atrial Fibrillation: Yes Hx Hypertension: Yes Hx Peripheral Edema: Yes - PULMONARY Hx Respiratory Disorders: No - NEUROLOGICAL Hx Neurological Disorder: No - HEENT Hx HEENT Problems: No Other/Comment: uses eye glasses - RENAL Hx Chronic Kidney Disease: No - ENDOCRINE/METABOLIC Hx Endocrine Disorders: No - HEMATOLOGICAL/ONCOLOGICAL Hx Blood Disorders: No Hx Human Immunodeficiency Virus (HIV): No - INTEGUMENTARY Hx Dermatological Problems: Yes Hx Cellulitis: Yes - MUSCULOSKELETAL/RHEUMATOLOGICAL Hx Musculoskeletal Disorders: Yes Hx Falls: Yes - GASTROINTESTINAL Hx Gastrointestinal Disorders: Yes Other/Comment: Ascites - GENITOURINARY/GYNECOLOGICAL Hx Genitourinary Disorders: No - PSYCHIATRIC Hx Psychophysiologic Disorder: No Hx Substance Use: No - SURGICAL HISTORY Hx Surgeries: Yes Other/Comment: 2000 arthroscopic knee surgery - ANESTHESIA Hx Anesthesia: Yes Hx Anesthesia Reactions: No Hx Malignant Hyperthermia: No Meds Allergies/Adverse Reactions: Allergies Allergy/AdvReac Type Severity Reaction Status Date / Time No Known Allergies Allergy Verified 09/07/16 20:08 Physical Exam - Respiratory Exam Respiratory Exam: NORMAL BREATHING PATTERN - Cardiovascular Exam Cardiovascular Exam: REGULAR RHYTHM - GI/Abdominal Exam GI & Abdominal Exam: Normal Bowel Sounds Results - Vital Signs Recent Vital Signs: Last Vital Signs Temp 97.6 F 09/08/16 16:02 Pulse 79 09/08/16 16:02 Resp 20 09/08/16 16:02 BP 103/51 L 09/08/16 17:25 Pulse Ox 96 09/08/16 16:02 - Labs Result Diagrams: 09/08/16 06:25 09/08/16 06:25 Labs: Laboratory Results - last 24 hr 09/08/16 09/08/16 13:46 15:48 PT 25.1 H INR 2.2 H APTT 43.1 H Blood Type A POSITIVE Antibody Screen Negative BBK History Checked Patient has bt Assessment & Plan - Assessment and Plan (Free Text) Assessment: Cirrhosis Hepatosplenomegaly Portal HTN ascites etiol?? S/P Hepatic encephalopathy Pancytopenia Low prot/alb Ascites s/p paracentesis x2 Albumin repeat paracentesis Lasix zaroxylyn Lactulose ?? Aldactone CKD? Hepatorenal? GI Nephrology [facility]? TIPS ? Lower extremity edema with erythema much improved Leg elevation Lasix ID Podiatry A-fib/ rate controlled Amiodorone INR 2.0 Cardiology ] Low back pain etiol? improved Physiatry consult SOB? 2 to ascites [facility] Pulmonary note appreciated - Date & Time Date: 09/08/16 Time: 22:22
--- NOTE | 2016-09-09 07:12 | CP.PCM.PN ---
Subjective - Date & Time of Evaluation Date of Evaluation: 09/09/16 Time of Evaluation: 07:11 - Subjective Subjective: 71 y/o male seen for f/u of bilateral lower extremity edema and erythema which has been resolving over the last few days. Patient seen resting comfortably in bedside chair at time of visit. Patient denies any acute events overnight. He appears in NAD and AAOx3. Bilateral legs are open to air. Says that he has noticed an improvement in the appearance of his legs. Patient says the nurses last applied hydrocortisone cream 2 days ago. Denies any pain or discomfort to the legs. Denies any other complaints today. Objective - Vital Signs/Intake and Output Vital Signs (last 24 hours): Temp Pulse Resp BP Pulse Ox 98.0 F 79 18 104/53 L 95 09/09/16 00:08 09/09/16 00:08 09/09/16 00:08 09/09/16 00:08 09/09/16 00:08 - Medications Medications: Current Medications Furosemide (Lasix) 40 mg IVP BID [facility] Last Admin: 09/08/16 17:25 Dose: Not Given Lactulose (Enulose) 20 gm PO BID PRN PRN Reason: Constipation - Labs Labs: PT 25.1 Seconds (9.8-13.1) H 09/08/16 13:46 INR 2.2 (0.9-1.2) H 09/08/16 13:46 APTT 43.1 Seconds (25.6-37.1) H 09/08/16 13:46 - Constitutional Appears: Well, Non-toxic, No Acute Distress - Extremities Exam Additional comments: Vasc: DP 2/4, PT 1/4 b/l, TG wnl, CFT < 3 sec to all digits neuro: protective sensation grossly intact derm: Erythema resolved to B/L lower extremities. Resolving edema, no open lesions, no acute clinical signs of infection ortho: no pain on palpation to bilateral lower extremities - Neurological Exam Neurological Exam: Alert, Awake, Oriented x3 - Psychiatric Exam Psychiatric exam: Normal Affect, Normal Mood Assessment and Plan - Assessment and Plan (Free Text) Assessment: 71 y/o male seen at bedside for resolving edema and erythema Plan: Patient seen and evaluated and chart reviewed Discussed in detail with attending Dr. Clemens Chart, labs and vitals reviewed; afebrile Spoke with nursing and recommended that they continue to apply hydrocortisone cream topical daily, recommend patient continue with cream as needed outpatient Cont. IV abx Podiatry will continue to follow while patient remains in house Stable from podiatry standpoint
--- NOTE | 2016-09-09 08:35 | CP.PCM.PN ---
Subjective - Date & Time of Evaluation Date of Evaluation: 09/09/16 Time of Evaluation: 08:27 - Subjective Subjective: Patient without complaint. Resting comfortably. Objective - Vital Signs/Intake and Output Vital Signs (last 24 hours): Temp Pulse Resp BP Pulse Ox 98.0 F 79 18 104/53 L 95 09/09/16 00:08 09/09/16 00:08 09/09/16 00:08 09/09/16 00:08 09/09/16 00:08 - Medications Medications: Current Medications Furosemide (Lasix) 40 mg IVP BID [facility] Last Admin: 09/08/16 17:25 Dose: Not Given Lactulose (Enulose) 20 gm PO BID PRN PRN Reason: Constipation - Labs Labs: PT 25.1 Seconds (9.8-13.1) H 09/08/16 13:46 INR 2.2 (0.9-1.2) H 09/08/16 13:46 APTT 43.1 Seconds (25.6-37.1) H 09/08/16 13:46 - Head Exam Head Exam: ATRAUMATIC - Eye Exam Eye Exam: Normal appearance Pupil Exam: NORMAL ACCOMODATION - Neck Exam Neck Exam: Full ROM - GI/Abdominal Exam GI & Abdominal Exam: Distended, Soft, Normal Bowel Sounds Assessment and Plan (1) Ascites of liver Assessment & Plan: Clinically reasonably well. Yesterday serum albumin up to 2.7. Renal functioning today pending. Low volume parascentesis today and then discharge to f/u at liver transplant center Status: Acute
[2016-09-09 09:46] LABS: HEMATOCRIT 25.7 % (35.0-51.0); MEAN CELL VOLUME 105.8 fl (80.0-94.0); MEAN CORPUSCULAR HEMOGLOBIN 35.4 pg (27.0-31.0); MEAN CORPUSCULAR HGB CONC 33.5 g/dL (33.0-37.0); RED CELL DISTRIBUTION WIDTH 17.3 % (11.5-14.5)
[2016-09-09 09:59] LABS: POTASSIUM 4.1 MMOL/L (3.6-5.0)
[2016-09-09] MEDS ORDERED: Albumin Human 25% (12.5 gm/50 ml) IV ONE ×2 (11:12→11:30)
--- NOTE | 2016-09-09 11:15 | PQF GENQUE ---
Dr. Gordon Montoya, Etiology of Ascites? if known after the work up is completed OR: Unable to determine H and P: Assessment: Cirrhosis Hepatosplenomegaly Portal HTN ascites etiol?? S/P Hepatic encephalopathy Pancytopenia Low prot/alb Ascites s/p paracentesis x2 Albumin repeat paracentesis Lasix zaroxylyn Lactulose ?? Aldactone CKD? Hepatorenal? GI Nephrology [facility]? TIPS ? Lower extremity edema with erythema much improved Leg elevation Lasix ID Podiatry A-fib/ rate controlled Amiodorone INR 2.0 Cardiology Low back pain etiol? improved Physiatry consult SOB? 2 to ascites [facility] Pulmonary note appreciated This form is a permanent part of the medical record Clarification of your documentation is requested to better reflect the severity of illness and intensity of treatment of your patient. Indicators present [] Specify: [] [] Specify: [] [] Specify: [] [] Specify: [] Location in the medical record that reflects the above clinical findings: [] Treatment Provided: [] PHYSICIAN'S RESPONSE Based on your medical judgment of the clinical indicators outlined above please clarify the following: [] Practitioner response [] If unable to determine, please check the box, sign and date. Present On Admission (POA) Indicator: [] Present at the time of admission [] Not present at the time of admission [] Clinically Undetermined In responding to this query, please exercise your independent professional judgment. The fact that a question is asked does not imply that any particular answer is desired or expected. Thank you for your clarification on this documentation. If you have any questions please call. * Thank you, Sheela Kohler RN BSN ext. #[phone] MTDD
--- NOTE | 2016-09-09 11:19 | CP.PCM.PN ---
Subjective - Date & Time of Evaluation Date of Evaluation: 09/09/16 Time of Evaluation: 10:30 - Subjective Subjective: STILL WITH ASCITES Objective - Vital Signs/Intake and Output Vital Signs (last 24 hours): Temp Pulse Resp BP Pulse Ox 97.3 F L 82 18 147/58 L 97 09/09/16 10:43 09/09/16 10:43 09/09/16 10:43 09/09/16 10:43 09/09/16 10:43 - Medications Medications: Current Medications Albumin Human (Albumin Human 25% (12.5 Gm/50 Ml)) 12.5 gm IV ONCE ONE Stop: 09/09/16 11:13 Furosemide (Lasix) 40 mg IVP BID [facility] Last Admin: 09/09/16 08:39 Dose: Not Given Lactulose (Enulose) 20 gm PO BID PRN PRN Reason: Constipation - Labs Labs: 09/09/16 09:10 09/09/16 09:10 PT 22.1 Seconds (9.8-13.1) H 09/09/16 09:10 INR 1.9 (0.9-1.2) H 09/09/16 09:10 APTT 43.1 Seconds (25.6-37.1) H 09/08/16 13:46 - Respiratory Exam Respiratory Exam: Clear to Ausculation Bilateral - Cardiovascular Exam Cardiovascular Exam: REGULAR RHYTHM, +S1, +S2 - GI/Abdominal Exam Additional comments: ASCITES - Extremities Exam Extremities Exam: Pedal Edema Assessment and Plan - Assessment and Plan (Free Text) Assessment: CIRRHOSIS OF THE LIVER STABLE CARDIAC STATUS Plan: FOR PARACENTESIS AGAIN TODAY WITH PROBABLE DISCHARGE AFTERWARDS AND FU AT LIVER ADDIS
--- NOTE | 2016-09-09 11:21 | PQF GENQUE ---
Dr. Gordon Montoya, The attending physician is required to clarify conflicting documentation in the medical record. The following documentation is noted in the medical record: Diagnosis 1: Atrial Fibrillation Documented by: Attending Location : H and P Diagnosis 2. S/P Atrial Fibrillation : Documented by: Cardiology and Renal Location: Consult H and P: Assessment: A-fib/ rate controlled Amiodorone INR 2.0 Cardiology Cardiology consult:He was in the TCU and was readmitted to the acute care setting for paracentesis. .He also had A-Fib medically converted to SR with amiodorone which was recently discontinued when he had Hepatic Encephalopathy Impression: S/P Atrial Fibrillation This form is a permanent part of the medical record Clarification of your documentation is requested to better reflect the severity of illness and intensity of treatment of your patient. Indicators present [] Specify: [] [] Specify: [] [] Specify: [] [] Specify: [] Location in the medical record that reflects the above clinical findings: [] Treatment Provided: [] PHYSICIAN'S RESPONSE Based on your medical judgment of the clinical indicators outlined above please clarify the following: [] Practitioner response [] If unable to determine, please check the box, sign and date. Present On Admission (POA) Indicator: [] Present at the time of admission [] Not present at the time of admission [] Clinically Undetermined In responding to this query, please exercise your independent professional judgment. The fact that a question is asked does not imply that any particular answer is desired or expected. Thank you for your clarification on this documentation. If you have any questions please call. * Thank you, Sheela Kohler RN BSN ext. #[phone] MTDD
--- NOTE | 2016-09-09 11:30 | PQF GENQUE ---
Dr. Gordon Montoya, Hepatorenal Syndrome ruled in or ruled out ?: after work up completed H and P: Assessment: Cirrhosis Hepatosplenomegaly Portal HTN ascites etiol?? S/P Hepatic encephalopathy Pancytopenia Low prot/alb Ascites s/p paracentesis x2 Albumin repeat paracentesis Lasix zaroxylyn Lactulose ?? Aldactone CKD? Hepatorenal? GI Nephrology [facility]? TIPS ID note: idiopathic cirrhosis bilat leg edema recurrent ascites portal HTN r/o hepatorenal syndrome ; no clearcut evidence of sepsis/ peritonitis at present dr Kyle to re-eval This form is a permanent part of the medical record Clarification of your documentation is requested to better reflect the severity of illness and intensity of treatment of your patient. Indicators present [] Specify: [] [] Specify: [] [] Specify: [] [] Specify: [] Location in the medical record that reflects the above clinical findings: [] Treatment Provided: [] PHYSICIAN'S RESPONSE Based on your medical judgment of the clinical indicators outlined above please clarify the following: [] Practitioner response [] If unable to determine, please check the box, sign and date. Present On Admission (POA) Indicator: [] Present at the time of admission [] Not present at the time of admission [] Clinically Undetermined In responding to this query, please exercise your independent professional judgment. The fact that a question is asked does not imply that any particular answer is desired or expected. Thank you for your clarification on this documentation. If you have any questions please call. * Thank you, Sheela Kohler RN BSN ext. #[phone] MTDD
--- NOTE | 2016-09-09 11:34 | PCM.SURG1 ---
Surgeon's Initial Post Op Note - Surgeon's Notes Surgeon: Charlette Cardiopulmonary Supervisor: None Type of Anesthesia: Local Pre-Operative Diagnosis: Ascites. Operative Findings: Ascites. Post-Operative Diagnosis: Ascites. Operation Performed: Paracentesis. Specimen/Specimens Removed: Approx 10L of clear pale yellow fluid aspirated. Estimated Blood Loss: EBL {In ML}: 1 Date of Surgery/Procedure: 09/09/16 Time of Surgery/Procedure: 11:30
--- NOTE | 2016-09-09 12:22 | CP.PCM.PN ---
Subjective - Date & Time of Evaluation Date of Evaluation: 09/09/16 Time of Evaluation: 09:00 - Subjective Subjective: s/p paracentesis less swelling no fever Objective - Vital Signs/Intake and Output Vital Signs (last 24 hours): Temp Pulse Resp BP Pulse Ox 97.6 F 76 18 108/48 L 94 L 09/09/16 12:00 09/09/16 12:00 09/09/16 12:00 09/09/16 12:00 09/09/16 12:00 - Medications Medications: Current Medications Furosemide (Lasix) 40 mg IVP BID STEFFANIE Last Admin: 09/09/16 08:39 Dose: Not Given Lactulose (Enulose) 20 gm PO BID PRN PRN Reason: Constipation - Labs Labs: 09/09/16 09:10 09/09/16 09:10 PT 22.1 Seconds (9.8-13.1) H 09/09/16 09:10 INR 1.9 (0.9-1.2) H 09/09/16 09:10 APTT 43.1 Seconds (25.6-37.1) H 09/08/16 13:46 - Constitutional Appears: Non-toxic, Chronically Ill - Head Exam Head Exam: NORMOCEPHALIC - Eye Exam Eye Exam: PERRL. absent: Scleral icterus - ENT Exam ENT Exam: Mucous Membranes Dry, Normal External Ear Exam - Neck Exam Neck Exam: absent: Lymphadenopathy - Respiratory Exam Respiratory Exam: Decreased Breath Sounds, Rhonchi - Cardiovascular Exam Cardiovascular Exam: REGULAR RHYTHM - GI/Abdominal Exam GI & Abdominal Exam: Distended, Soft Assessment and Plan (1) Cirrhosis of liver with ascites Status: Chronic (2) Ascites of liver Status: Acute (3) Erysipelas of lower extremity Status: Acute (4) Intractable low back pain Status: Acute (5) Chronic kidney disease, stage III (moderate) Status: Chronic (6) Leg edema Status: Chronic (7) SOB (shortness of breath) Status: Resolved
[2016-09-09 12:47] VITALS: TEMP 97.7
--- NOTE | 2016-09-09 13:14 | CP.PCM.PN ---
Subjective - Date & Time of Evaluation Date of Evaluation: 09/09/16 Time of Evaluation: 13:13 - Subjective Subjective: Patient and bed appears to be more comfortable Status post paracentesis with removal of 10 liters Kidney functions remain stable Vital signs stable Patient receiving albumin And to receive diuretics as order CK D stage III with advanced liver cirrhosis and recurrent paracentesis and ascites Objective - Vital Signs/Intake and Output Vital Signs (last 24 hours): Temp Pulse Resp BP Pulse Ox 97.7 F 75 18 111/54 L 94 L 09/09/16 12:30 09/09/16 12:30 09/09/16 12:30 09/09/16 12:30 09/09/16 12:30 - Medications Medications: Current Medications Furosemide (Lasix) 40 mg IVP BID STEFFANIE Last Admin: 09/09/16 08:39 Dose: Not Given Lactulose (Enulose) 20 gm PO BID PRN PRN Reason: Constipation - Labs Labs: 09/09/16 09:10 09/09/16 09:10 PT 22.1 Seconds (9.8-13.1) H 09/09/16 09:10 INR 1.9 (0.9-1.2) H 09/09/16 09:10 APTT 43.1 Seconds (25.6-37.1) H 09/08/16 13:46 Assessment and Plan (1) Cirrhosis of liver with ascites Status: Chronic (2) Chronic kidney disease, stage III (moderate) Status: Chronic
--- NOTE | 2016-09-09 15:20 | CP.PCM.PCO ---
Assessment/Plan - Assessment/Plan Assessment (Free Text): Pt stable, tolerated paracentesis and infusion of albumin. Discussed with Dr. Kyle and Dr. Montoya, pt to be d/c'd home and follow up with Dr. Montoya on Monday. Per Dr. Kyle, pt to hold off on all meds for now and resume next week after follow up with Dr. Montoya. - Problems Patient Problems: Problem List (Active/Current) Problem Status Onset Code Cirrhosis of liver with ascites Chronic K74.60
[2016-09-09 16:09] VITALS: BP 101/54; PULSE 72; RESP 20; O2SAT 96
--- NOTE | 2016-09-09 17:19 | US ---
Ultrasound guided paracentesis. Clinical History: Ascites with abdominal pain and distension. Technique: The relative risks and indications for the procedure were explained to the patient and informed written consent obtained. Sonography of the abdomen was performed in a supine position. This revealed a large amount of non-loculated ascites, greatest in the right lower quadrant. A puncture site was selected and the area was prepped and draped in the usual sterile fashion. 1% lidocaine was used to anesthetize the skin and soft tissues. A 5 Afghan paracentesis catheter was trocared into the right lower quadrant under real time ultrasound guidance. A permanent image was stored. Approximately 9600 cc of jessie fluid aspirated. Impression: Ultrasound-guided paracentesis in the right lower quadrant. Approximately 9600 cc of jessie colored fluid was aspirated.
--- NOTE | 2016-09-09 19:18 | CP.PCM.PN ---
Subjective - Date & Time of Evaluation Date of Evaluation: 09/09/16 Time of Evaluation: 22:22 - Subjective Subjective: Above noted Objective - Vital Signs/Intake and Output Vital Signs (last 24 hours): Temp Pulse Resp BP Pulse Ox 97.7 F 72 20 101/54 L 96 09/09/16 16:09 09/09/16 16:09 09/09/16 16:09 09/09/16 16:09 09/09/16 16:09 - Labs Labs: 09/09/16 09:10 09/09/16 09:10 PT 22.1 Seconds (9.8-13.1) H 09/09/16 09:10 INR 1.9 (0.9-1.2) H 09/09/16 09:10 APTT 43.1 Seconds (25.6-37.1) H 09/08/16 13:46 Assessment and Plan - Assessment and Plan (Free Text) Assessment: Cirrhosis Hepatosplenomegaly Portal HTN ascites etiol?? S/P Hepatic encephalopathy Pancytopenia Low prot/alb Ascites s/p paracentesis x3 Lasix zaroxylyn Lactulose ?? Aldactone CKD? Hepatorenal? GI Nephrology [facility] Liver transplant? TIPS ? Lower extremity edema with erythema much improved Leg elevation Lasix ID Podiatry A-fib/ rate controlled Amiodorone INR 2.0 Cardiology ] Low back pain etiol? improved Physiatry consult SOB? 2 to ascites Duoneb Pulmonary note appreciated
== END 2016-09-09 17:19 | disposition home or self-care (01) | DRG 433 ==
LOC: H.ER 15:03 → SUPCPDRO 15:03 → H.ERHOLD 15:55 → H.MEDSURG1 20:36 → OBSVTOIN 09-08 12:53
PROVIDERS: ADMIT Family Medicine Geriatric Medicine; ATTEND Family Medicine Geriatric Medicine
PROC: 0W9G3ZZ Drainage of Peritoneal Cavity, Percutaneous Approach (ICD-10-PCS; principal; 2016-09-08)
DX: K74.69 Other cirrhosis of liver (principal); D61.818 Other pancytopenia; K76.6 Portal hypertension; R18.8 Other ascites; I48.91 Unspecified atrial fibrillation; N18.3 Chronic kidney disease, stage 3 (moderate); R16.2 Hepatomegaly with splenomegaly, not elsewhere classified; J44.9 Chronic obstructive pulmonary disease, unspecified; A46 Erysipelas; I12.9 Hypertensive chronic kidney disease with stage 1 through stage 4 chronic kidney disease, or unspecified chronic kidney disease; I25.10 Atherosclerotic heart disease of native coronary artery without angina pectoris; Z87.891 Personal history of nicotine dependence; M19.90 Unspecified osteoarthritis, unspecified site; M54.5 Low back pain

== ENCOUNTER 2016-10-17 16:53 | Inpatient (IN) | payer MEDICARE, BC ==
[2016-10-17 16:53] VITALS: PULSE 82
--- NOTE | 2016-10-17 17:34 | ED PDOC ---
HPI: Chest Pain Time Seen by Provider: 10/17/16 17:21 Chief Complaint (Nursing): Chest Pain Chief Complaint (Provider): abdomen distension History Per: Patient History/Exam Limitations: no limitations Onset/Duration Of Symptoms: Days (2x) Current Symptoms Are (Timing): Still Present Severity: Moderate Additional Complaint(s): 71 year old male with a pertinent medical history of liver disease with ascites presents to the ED with complaints of increased abdomen distension associated with shortness of breath, epigastric/chest pain and ankle swelling which has been worsening for the past 2x days. He denies having a cough or fevers. PMD: Vicente Montoya MD Past Medical History Reviewed: Historical Data, Nursing Documentation, Vital Signs Vital Signs: Last Vital Signs Temp 98.8 F 10/17/16 16:55 Pulse 94 H 10/17/16 16:55 Resp 16 10/17/16 16:55 BP 114/62 10/17/16 16:55 Pulse Ox 97 10/17/16 17:44 - Medical History PMH: Arthritis, Atrial Fibrillation, Back Problems (Chronic), HTN, Peripheral Edema Denies: HIV, Chronic Kidney Disease Other PMH: liver disease with ascites - Family History Family History: States: Unknown Family Hx, Hypertension - Social History Current smoker - smoking cessation education provided: No Alcohol: None Drugs: Denies - Home Medications Home Medications: Ambulatory Orders Medication Instructions Recorded Bumetanide [Bumex] 2 mg PO BID 10/17/16 Lactulose [Generlac] 15 ml PO DAILY PRN 10/17/16 - Allergies Allergies/Adverse Reactions: Allergies Allergy/AdvReac Type Severity Reaction Status Date / Time No Known Allergies Allergy Verified 09/07/16 20:08 Review of Systems ROS Statement: Except As Marked, All Systems Reviewed And Found Negative Constitutional: Negative for: Fever Cardiovascular: Positive for: Chest Pain Respiratory: Positive for: Shortness of Breath. Negative for: Cough Gastrointestinal: Positive for: Abdominal Pain (epigastric), Other (increased abdominal distension) Musculoskeletal: Positive for: Other (ankle swelling) Physical Exam - Reviewed Nursing Documentation Reviewed: Yes Vital Signs Reviewed: Yes - Physical Exam Appears: Positive for: Well, Non-toxic, No Acute Distress Head Exam: Positive for: ATRAUMATIC, NORMOCEPHALIC Skin: Positive for: Normal Color, Warm, Dry Cardiovascular/Chest: Positive for: Regular Rate, Rhythm Respiratory: Positive for: Decreased Breath Sounds (decreased breath sounds at the bases bilaterally), Rales (at bases) Gastrointestinal/Abdominal: Positive for: Distended, Asicites (10 asicites and positive fluid waves) Extremity: Positive for: Other (4+ pitting edema to the lower extremities ) Neurologic/Psych: Positive for: Alert, Oriented (3x) - Laboratory Results Result Diagrams: 10/17/16 17:46 10/17/16 17:46 - ECG O2 Sat by Pulse Oximetry: 97 (RA) Pulse Ox Interpretation: Normal Medical Decision Making Medical Decision Makin:21 Initial impression: 71 year old male with increased abdomen distension, shortness of breath, and epigastric/chest pain. Initial plan: * XRay chest portable * EKG * CMP * troponin I * CBC * PT/INR * reevaluation Scribe Attestation: Documented by Maritza Dobson, acting as a scribe for Maynor Camarena MD. Provider Scribe Attestation: All medical record entries made by the Scribe were at my direction and personally dictated by me. I have reviewed the chart and agree that the record accurately reflects my personal performance of the history, physical exam, medical decision making, and the department course for this patient. I have also personally directed, reviewed, and agree with the discharge instructions and disposition. Disposition - Clinical Impression Clinical Impression: Cirrhosis of liver with ascites, Chronic kidney disease, stage III (moderate) - Patient ED Disposition Is Patient to be Admitted: Yes - Disposition Disposition Time: 18:36 Condition: FAIR Forms: [employer] (Z[place]an) - Pt Status Changed To: Hospital Disposition Of: Inpatient - Admit Certification Admit to Inpatient:: After my assessment, the patient will require hospitalization for at least two midnights. This is because of the severity of symptoms shown, intensity of services needed, and/or the medical risk in this patient being treated as an outpatient. - POA Present On Arrival: None
[2016-10-17 17:50] LABS: BASO % 0.4 % (0.0-2.0); EOS # 0.6 K/uL (0.0-0.7); LYMPH # 0.7 K/uL (1.0-4.3); MEAN CELL VOLUME 105.4 fl (80.0-94.0); MEAN CORPUSCULAR HEMOGLOBIN 36.6 pg (27.0-31.0); MEAN CORPUSCULAR HGB CONC 34.7 g/dL (33.0-37.0); MEAN PLATELET VOLUME 9.7 fl (7.2-11.7); MONO # 1.4 K/uL (0.0-0.8); MONO % 13.3 % (0.0-10.0); NEUT # 7.7 K/uL (1.8-7.0); NEUT % 73.3 % (50.0-75.0); NRBC % 0.1 % (0.0-0.0); PLATELET COUNT 107 K/uL (130-400); RED CELL DISTRIBUTION WIDTH 17.1 % (11.5-14.5); WHITE BLOOD COUNT 10.6 K/uL (4.8-10.8)
[2016-10-17 18:14] LABS: ALB/GLOB RATIO 0.5 (1.0-2.1); BILIRUBIN,TOTAL 2.4 mg/dl (0.2-1.3); CALCIUM 7.5 mg/dL (8.4-10.2); POTASSIUM 4.8 MMOL/L (3.6-5.0); TOTAL PROTEIN 7.2 G/DL (6.3-8.2)
[2016-10-17 18:25] LABS: TROPONIN I 0.038 ng/mL (0.00-0.120)
[2016-10-17 19:59] LABS: BASOPHIL 1 % (0-2); EOSINOPHIL 4 % (0-7); LARGE PLATELETS PRESENT; NEUTROPHIL 80 % (42-75); TOTAL CELLS COUNTED 100
[2016-10-17] MEDS ORDERED: Piperacillin/Tazobact 3.375 GM in Sodium Chloride 0.9% 100 ML IVPB STA (23:48)
[2016-10-17] MEDS ORDERED: LACTULOSE PO PRN (23:54)
[2016-10-18] MEDS ORDERED: Lactulose 10 gm/15 ml Syrup PO SCH (00:15)
[2016-10-18] MEDS ORDERED: Lactulose 10 gm/15 ml Syrup PO PRN (00:15)
[2016-10-18] MEDS: Albumin Human 25% (12.5 gm/50 ml) IV SCH ×2 (10:00→16:33)
--- NOTE | 2016-10-18 10:17 | RAD ---
HISTORY: Cough. Portable study 18:11. COMPARISON: 08/31/2016. FINDINGS: LUNGS: No active pulmonary disease. PLEURA: No significant pleural effusion identified, no pneumothorax apparent. CARDIOVASCULAR: Cardiomegaly. No evidence of acute, significant cardiovascular disease. OSSEOUS STRUCTURES: No significant abnormalities. VISUALIZED UPPER ABDOMEN: Normal. OTHER FINDINGS: None. IMPRESSION: No active disease. Resolved pulmonary vascular congestion identified previously.
--- NOTE | 2016-10-18 10:35 | CP.PCM.CON ---
History of Present Illness - History of Present Illness History of Present Illness: 71 y/o male with hx/Emmanuelle cirrhosis with ascitis requiring frequent paracenthesis, Stage 1V kidney dis is admitted for abdominal discomfort & distension , swelling of legs & sob. Renal consult is requested for evaluation of renal function Past Patient History - Infectious Disease Hx of Infectious Diseases: None - Past Medical History & Family History Past Medical History?: Yes - Past Social History Smoking Status: Former Smoker - CARDIAC Hx Cardiac Disorders: Yes (AFIB/Murmur/HTN/BLE edema) - PULMONARY Hx Respiratory Disorders: No - NEUROLOGICAL Hx Neurological Disorder: No - HEENT Hx HEENT Problems: No Other/Comment: uses eye glasses - RENAL Hx Chronic Kidney Disease: Yes - ENDOCRINE/METABOLIC Hx Endocrine Disorders: No - HEMATOLOGICAL/ONCOLOGICAL Hx Human Immunodeficiency Virus (HIV): No - INTEGUMENTARY Hx Dermatological Problems: Yes Hx Cellulitis: Yes - MUSCULOSKELETAL/RHEUMATOLOGICAL Hx Musculoskeletal Disorders: Yes (Arthritis/Back problems) Hx Falls: Yes - GASTROINTESTINAL Hx Gastrointestinal Disorders: Yes Other/Comment: Ascites - GENITOURINARY/GYNECOLOGICAL Hx Genitourinary Disorders: No - PSYCHIATRIC Hx Psychophysiologic Disorder: No Hx Substance Use: No - SURGICAL HISTORY Hx Surgeries: Yes Other/Comment: 2000 arthroscopic knee surgery - ANESTHESIA Hx Anesthesia: Yes Hx Anesthesia Reactions: No Hx Malignant Hyperthermia: No Meds Allergies/Adverse Reactions: Allergies Allergy/AdvReac Type Severity Reaction Status Date / Time No Known Allergies Allergy Verified 09/07/16 20:08 - Medications Medications: Current Medications Albumin Human (Albumin Human 25% (12.5 Gm/50 Ml)) 12.5 gm IV Q8 STEFFANIE Lactulose (Enulose) 10 gm PO HS PRN PRN Reason: Constipation Lactulose (Enulose) 10 gm PO TID STEFFANIE Physical Exam - Constitutional Additional comments: Appears uncomfortable due to abdominal discomfort - Head Exam Head Exam: ATRAUMATIC, NORMOCEPHALIC - Eye Exam Eye Exam: Normal appearance - ENT Exam ENT Exam: Mucous Membranes Dry - Neck Exam Additional comments: Neck supple - Respiratory Exam Additional comments: Lungs clear - Cardiovascular Exam Cardiovascular Exam: REGULAR RHYTHM - GI/Abdominal Exam Additional comments: Massive ascitis with diffuse mild tenderness No guarding or rebound - Extremities Exam Additional comments: 2-3+ pitting edema of both legs Results - Vital Signs Recent Vital Signs: Last Vital Signs Temp 97.4 F L 10/18/16 08:09 Pulse 76 10/18/16 08:09 Resp 18 10/18/16 08:09 BP 105/43 L 10/18/16 08:09 Pulse Ox 96 10/18/16 08:09 - Labs Result Diagrams: 10/17/16 17:46 10/17/16 17:46 Assessment & Plan - Assessment and Plan (Free Text) Assessment: Acute on CRF secondary to HRS Renal function may improve after paracenthesis In 08/2016 Pts creat was 2.1 Liver cirrhosis with massive asitis/anasarca Plan: Needs paracenthesis HÉCTOR Monitor UO & I/Os bladder US Continue diuretics UA
--- NOTE | 2016-10-18 11:00 | CP.PCM.CON ---
History of Present Illness - History of Present Illness History of Present Illness: THE PATIENT IS A 71 YEAR OLD MALE KNOWN TO ME FROM [facility] ADMISSIONS. 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 HE HAD ATRIAL FIBRILLATION THAT DID NOT RESPOND TO DIGOXIN BUT CONVERTED TO SINUS RHYTHM ON AMIODARONE BUT IT WAS STOPPED WHEN THE PATIENT DEVELOPED HEPATIC ENCEPHALOPATHY AND LUCKILY HE HAS REMAINED IN SINUS RHYTHM SINCE. HE HAS AORTIC VALVE SCLEROSIS AND UNDERWENT A MEL HERE A FEW MONTHS AGO THAT SHOWED THAT IS WAS SCLEROSIS AND NOT A VEGETATION. HE WENT TO [facility] FOR A LIVER TRANSPLANT EVALUATION BUT THEY BECAME CONCERNED ABOUT THE AORTIC VALVE AND ADMITTED AND TREATED HIM FOR ENDOCARITIS ACCORDING TO THE PATIENT AND HE DOESN' T BELIEVE THAT MUCH OF A LIVER WORK-UP WAS DONE. HE WENT TO A SUBACUTE FACILITY FOR IV ANTIBIOTICS AND WAS DISCHARGED LAST WEEK. HE STARTED HAVING ABDOMINAL SWELLING THAT WAS MAKING IT DIFFICULT TO BREATHE SO HE CAME TO THE ER WHERE HE WAS FOUND TO HAVE MASSIVE ASCITES SO HE WAS ADMITTED. CARDIOLOGY WAS CALLED TO SEE HIM. HE DENIES CHEST PAIN. Past Patient History - Infectious Disease Hx of Infectious Diseases: None - Past Medical History & Family History Past Medical History?: Yes - Past Social History Smoking Status: Former Smoker - CARDIAC Hx Cardiac Disorders: Yes (AFIB/Murmur/HTN/BLE edema) - PULMONARY Hx Respiratory Disorders: No - NEUROLOGICAL Hx Neurological Disorder: No - HEENT Hx HEENT Problems: No Other/Comment: uses eye glasses - RENAL Hx Chronic Kidney Disease: Yes - ENDOCRINE/METABOLIC Hx Endocrine Disorders: No - HEMATOLOGICAL/ONCOLOGICAL Hx Human Immunodeficiency Virus (HIV): No - INTEGUMENTARY Hx Dermatological Problems: Yes Hx Cellulitis: Yes - MUSCULOSKELETAL/RHEUMATOLOGICAL Hx Musculoskeletal Disorders: Yes (Arthritis/Back problems) Hx Falls: Yes - GASTROINTESTINAL Hx Gastrointestinal Disorders: Yes Other/Comment: Ascites - GENITOURINARY/GYNECOLOGICAL Hx Genitourinary Disorders: No - PSYCHIATRIC Hx Psychophysiologic Disorder: No Hx Substance Use: No - SURGICAL HISTORY Hx Surgeries: Yes Other/Comment: 2000 arthroscopic knee surgery - ANESTHESIA Hx Anesthesia: Yes Hx Anesthesia Reactions: No Hx Malignant Hyperthermia: No Meds Allergies/Adverse Reactions: Allergies Allergy/AdvReac Type Severity Reaction Status Date / Time No Known Allergies Allergy Verified 09/07/16 20:08 - Medications Medications: Current Medications Albumin Human (Albumin Human 25% (12.5 Gm/50 Ml)) 12.5 gm IV Q8 STEFFANIE Lactulose (Enulose) 10 gm PO HS PRN PRN Reason: Constipation Lactulose (Enulose) 10 gm PO TID STEFFANIE Physical Exam - Respiratory Exam Respiratory Exam: Decreased Breath Sounds - Cardiovascular Exam Cardiovascular Exam: REGULAR RHYTHM, +S1, +S2, Systolic Murmur - GI/Abdominal Exam GI & Abdominal Exam: Firm, Tenderness Additional comments: MASSIVE ASCITES - Extremities Exam Extremities exam: Positive for: pedal edema - Additional Findings Additional findings: EKG 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 TROPONIN NORMAL CXR CLEAR LUNG RODAS ALBUMEN LOW LFT ELEVATED RECENT ECHOCARDIOGRAMS WITH GOOD LV SYSTOLIC FUNCTION Results - Vital Signs Recent Vital Signs: Last Vital Signs Temp 97.4 F L 10/18/16 08:09 Pulse 76 10/18/16 08:09 Resp 18 10/18/16 08:09 BP 105/43 L 10/18/16 08:09 Pulse Ox 96 10/18/16 08:09 - Labs Result Diagrams: 10/17/16 17:46 10/17/16 17:46 Assessment & Plan - Assessment and Plan (Free Text) Assessment: CIRRHOSIS OF THE LIVER WITH MASSIVE AND SYMPTOMATIC ASCITES S/P ATRIAL FIBRILLATION-REMAINS IN NSR Plan: THE PATIENT WAS ADMITTED TO ON TELEMETRY ON LACTULOSE AND IV ALBUMEN FOR PARACENTESIS BY IR
--- NOTE | 2016-10-18 12:28 | CP.PCM.PCO ---
Assessment & Plan - Assessment and Plan (Free Text) Plan: 71 yr old M admitted with liver cirrhosis, ARF, with ascites Discussed with from IR for consult to perform paracentesis As per he will forward the case to in am
[2016-10-18] MEDS: Lactulose 10 gm/15 ml Syrup PO SCH ×2 (13:09→16:33)
[2016-10-18] MEDS ORDERED: Lidocaine 1% Inj (20ml) ONE (17:25)
[2016-10-18] MEDS ORDERED: Albumin Human 25% (12.5 gm/50 ml) IV ONE (17:45)
--- NOTE | 2016-10-18 18:17 | PCM.SURG1 ---
Surgeon's Initial Post Op Note - Surgeon's Notes Surgeon: Charlette Judge: None Type of Anesthesia: Local Pre-Operative Diagnosis: Ascites. Operative Findings: Ascites Post-Operative Diagnosis: Ascites Operation Performed: Paracentesis Specimen/Specimens Removed: 8.4L of clear plae yellow fluid aspirated. Estimated Blood Loss: EBL {In ML}: 1 Date of Surgery/Procedure: 10/18/16 Time of Surgery/Procedure: 18:15
--- NOTE | 2016-10-18 20:25 | CP.PCM.PN ---
Subjective - Date & Time of Evaluation Date of Evaluation: 10/18/16 Time of Evaluation: 22:22 - Subjective Subjective: Presented to ER SOB Seen by [facility] transplant team may have issue of Endocarditis Valve dx??? Objective - Vital Signs/Intake and Output Vital Signs (last 24 hours): Temp Pulse Resp BP Pulse Ox 97.3 F L 74 18 94/36 L 98 10/18/16 20:05 10/18/16 20:05 10/18/16 20:05 10/18/16 20:05 10/18/16 20:05 Intake and Output: 10/18/16 10/19/16 18:59 06:59 Intake Total 120 Output Total 8400 Balance -8280 - Medications Medications: Current Medications Albumin Human (Albumin Human 25% (12.5 Gm/50 Ml)) 12.5 gm IV Q8 [facility] Last Admin: 10/18/16 16:33 Dose: 12.5 gm Bumetanide (Bumex) 2 mg IVP Q12 [facility] Last Admin: 10/18/16 12:58 Dose: Not Given Lactulose (Enulose) 10 gm PO TID [facility] Last Admin: 10/18/16 16:33 Dose: 10 gm - Labs Labs: PT 22.7 Seconds (9.8-13.1) H 10/17/16 17:46 INR 2.0 (0.9-1.2) H 10/17/16 17:46 - Respiratory Exam Respiratory Exam: NORMAL BREATHING PATTERN - Cardiovascular Exam Cardiovascular Exam: REGULAR RHYTHM - GI/Abdominal Exam GI & Abdominal Exam: Normal Bowel Sounds Assessment and Plan - Assessment and Plan (Free Text) Assessment: Cirrhosis Hepatosplenomegaly Portal HTN ascites etiol?? S/P Hepatic encephalopathy Pancytopenia Low prot/alb Ascites s/p multiple paracentesis Lasix zaroxylyn Lactulose GI CKD? Hepatorenal? Nephrology [facility] Liver transplant? TIPS ? Endocarditis?? Get records Lower extremity edema with erythema much improved Leg elevation Lasix A-fib/ rate controlled Amiodorone INR 2.0 Cardiology ] Low back pain etiol? improved SOB? 2 to ascites Duoneb
--- NOTE | 2016-10-18 22:10 | CP.PCM.CON ---
History of Present Illness - History of Present Illness History of Present Illness: 71 yo male with h/o nonalcoholic liver cirrhosis with intractable ascites admitted with increased ascites, fatigue, and abdominal pain. Patient had been seen at liver center but was being treated for possible endocarditis before he could be placed on the transplant list . Has been hospitalized previously at [facility] and noted each time to have deteriorating renal functioning Review of Systems - Review of Systems Systems not reviewed;Unavailable: Other Past Patient History - Infectious Disease Hx of Infectious Diseases: None - Past Medical History & Family History Past Medical History?: Yes - Past Social History Smoking Status: Former Smoker - CARDIAC Hx Cardiac Disorders: Yes (AFIB/Murmur/HTN/BLE edema) - PULMONARY Hx Respiratory Disorders: No - NEUROLOGICAL Hx Neurological Disorder: No - HEENT Hx HEENT Problems: No Other/Comment: uses eye glasses - RENAL Hx Chronic Kidney Disease: Yes - ENDOCRINE/METABOLIC Hx Endocrine Disorders: No - HEMATOLOGICAL/ONCOLOGICAL Hx Human Immunodeficiency Virus (HIV): No - INTEGUMENTARY Hx Dermatological Problems: Yes Hx Cellulitis: Yes - MUSCULOSKELETAL/RHEUMATOLOGICAL Hx Musculoskeletal Disorders: Yes (Arthritis/Back problems) Hx Falls: Yes - GASTROINTESTINAL Hx Gastrointestinal Disorders: Yes Other/Comment: Ascites - GENITOURINARY/GYNECOLOGICAL Hx Genitourinary Disorders: No - PSYCHIATRIC Hx Psychophysiologic Disorder: No Hx Substance Use: No - SURGICAL HISTORY Hx Surgeries: Yes Other/Comment: 2000 arthroscopic knee surgery - ANESTHESIA Hx Anesthesia: Yes Hx Anesthesia Reactions: No Hx Malignant Hyperthermia: No Meds Allergies/Adverse Reactions: Allergies Allergy/AdvReac Type Severity Reaction Status Date / Time No Known Allergies Allergy Verified 09/07/16 20:08 - Medications Medications: Current Medications Albumin Human (Albumin Human 25% (12.5 Gm/50 Ml)) 12.5 gm IV Q8 [facility] Last Admin: 10/18/16 16:33 Dose: 12.5 gm Bumetanide (Bumex) 2 mg IVP Q12 [facility] Last Admin: 10/18/16 12:58 Dose: Not Given Lactulose (Enulose) 10 gm PO TID [facility] Last Admin: 10/18/16 16:33 Dose: 10 gm Physical Exam - Head Exam Head Exam: ATRAUMATIC - Eye Exam Eye Exam: PERRL Pupil Exam: PERRL - ENT Exam ENT Exam: Mucous Membranes Moist - Respiratory Exam Respiratory Exam: Clear to Auscultation Bilateral - Cardiovascular Exam Cardiovascular Exam: REGULAR RHYTHM, +S1, +S2 - GI/Abdominal Exam GI & Abdominal Exam: Distended, Firm, Normal Bowel Sounds. absent: Tenderness - Rectal Exam Rectal Exam: NORMAL INSPECTION Results - Vital Signs Recent Vital Signs: Last Vital Signs Temp 97.3 F L 10/18/16 20:05 Pulse 74 10/18/16 20:05 Resp 18 10/18/16 20:05 BP 94/36 L 10/18/16 20:05 Pulse Ox 98 10/18/16 20:05 - Labs Result Diagrams: 10/17/16 17:46 10/17/16 17:46 Assessment & Plan (1) Cirrhosis of liver with ascites Assessment and Plan: IV albumin and parascentesis. Salt and water restriction. IV Bumex. Renal consultation Status: Chronic Priority: High - Date & Time Date: 10/18/16 Time: 15:30
[2016-10-18 22:37] LABS: CREATININE, RANDOM URINE 120.2 mg/dL
[2016-10-18 22:50] LABS: RBC URINE 6 /hpf (0-3); URINE BILIRUBIN NEGATIVE (NEGATIVE); URINE BLOOD SMALL (NEGATIVE); URINE COLOR AMBER (YELLOW); URINE GLUCOSE (UA) NEG (Normal); URINE KETONE NEGATIVE (NEGATIVE); URINE LEUKOCYTE ESTERASE SMALL Leu/uL (Negative); URINE PROTEIN 100 mg/dL (NEGATIVE); URINE UROBILINOGEN 0.2-1.0 mg/dL (0.2-1.0); WBC URINE 15 /hpf (0-5)
[2016-10-19] MEDS: Albumin Human 25% (12.5 gm/50 ml) IV SCH ×3 (01:40→16:38)
[2016-10-19 07:01] LABS: HEMATOCRIT 26.1 % (35.0-51.0); MEAN CELL VOLUME 106.1 fl (80.0-94.0); MEAN CORPUSCULAR HGB CONC 33.9 g/dL (33.0-37.0); RED CELL DISTRIBUTION WIDTH 17.1 % (11.5-14.5); WHITE BLOOD COUNT 9.1 K/uL (4.8-10.8)
[2016-10-19 07:10] LABS: ALB/GLOB RATIO 0.5 (1.0-2.1); BILIRUBIN,TOTAL 2.5 mg/dl (0.2-1.3); CALCIUM 7.7 mg/dL (8.4-10.2); POTASSIUM 5.2 MMOL/L (3.6-5.0); TOTAL PROTEIN 6.7 G/DL (6.3-8.2)
[2016-10-19] MEDS: Lactulose 10 gm/15 ml Syrup PO SCH ×3 (08:58→16:39)
[2016-10-19] MEDS ORDERED: Bumetanide 0.25 MG/ML 10ml inj IV SCH (09:00)
--- NOTE | 2016-10-19 09:51 | CP.PCM.PN ---
Subjective - Date & Time of Evaluation Date of Evaluation: 10/19/16 Time of Evaluation: 09:48 - Subjective Subjective: Patient more alert and comfortable after parascentesis. 8 liters removed. Objective - Vital Signs/Intake and Output Vital Signs (last 24 hours): Temp Pulse Resp BP Pulse Ox 97.5 F L 82 18 97/52 L 96 10/19/16 08:15 10/19/16 08:15 10/19/16 08:15 10/19/16 08:15 10/19/16 08:15 Intake and Output: 10/19/16 10/19/16 06:59 18:59 Intake Total 100 Output Total 200 Balance -100 - Medications Medications: Current Medications Albumin Human (Albumin Human 25% (12.5 Gm/50 Ml)) 12.5 gm IV Q8 [facility] Last Admin: 10/19/16 09:01 Dose: 12.5 gm Bumetanide (Bumex 2.5mg/10 Ml) 2 mg IV Q12 [facility] Last Admin: 10/19/16 09:01 Dose: 2 mg Lactulose (Enulose) 10 gm PO TID [facility] Last Admin: 10/19/16 08:58 Dose: 10 gm - Labs Labs: 10/19/16 05:35 10/19/16 05:35 PT 22.4 Seconds (9.8-13.1) H 10/19/16 05:35 INR 2.1 (0.9-1.2) H 10/19/16 05:35 - Head Exam Head Exam: ATRAUMATIC - Eye Exam Eye Exam: Normal appearance - ENT Exam ENT Exam: Normal Exam - Neck Exam Neck Exam: Full ROM - Respiratory Exam Respiratory Exam: Clear to Ausculation Bilateral - Cardiovascular Exam Cardiovascular Exam: REGULAR RHYTHM - GI/Abdominal Exam GI & Abdominal Exam: Soft, Normal Bowel Sounds. absent: Tenderness Assessment and Plan (1) Cirrhosis of liver with ascites Assessment & Plan: S/p parascentesis. Continue IV albumin for now. Renal input for rising BUN/ creatinine Status: Chronic
--- NOTE | 2016-10-19 11:22 | CP.PCM.PN ---
Subjective - Date & Time of Evaluation Date of Evaluation: 10/19/16 Time of Evaluation: 11:19 - Subjective Subjective: Patient is awake and conscious in bed Status post paracentesis and removal of 8 L of fluid yesterday Patient still complaining of shortness of breath Objective - Vital Signs/Intake and Output Vital Signs (last 24 hours): Temp Pulse Resp BP Pulse Ox 97.5 F L 77 18 97/52 L 96 10/19/16 08:15 10/19/16 09:00 10/19/16 08:15 10/19/16 08:15 10/19/16 08:15 Intake and Output: 10/19/16 10/19/16 06:59 18:59 Intake Total 100 Output Total 200 Balance -100 - Medications Medications: Current Medications Albumin Human (Albumin Human 25% (12.5 Gm/50 Ml)) 12.5 gm IV Q8 [facility] Last Admin: 10/19/16 09:01 Dose: 12.5 gm Furosemide (Lasix) 100 mg IV DAILY [facility] Lactulose (Enulose) 10 gm PO TID [facility] Last Admin: 10/19/16 08:58 Dose: 10 gm Metolazone (Zaroxolyn) 2.5 mg PO DAILY [facility] - Labs Labs: 10/19/16 05:35 10/19/16 05:35 PT 22.4 Seconds (9.8-13.1) H 10/19/16 05:35 INR 2.1 (0.9-1.2) H 10/19/16 05:35 - Constitutional Appears: No Acute Distress - ENT Exam ENT Exam: Mucous Membranes Moist - Respiratory Exam Respiratory Exam: Rhonchi. absent: Chest Wall Tenderness - Cardiovascular Exam Cardiovascular Exam: absent: Rubs - GI/Abdominal Exam GI & Abdominal Exam: Normal Bowel Sounds Additional comments: still have significant ascitis - Extremities Exam Extremities Exam: Pedal Edema. absent: Calf Tenderness - Back Exam Back Exam: absent: CVA tenderness (L), CVA tenderness (R) - Neurological Exam Neurological Exam: Alert Assessment and Plan (1) Chronic kidney disease, stage III (moderate) Assessment & Plan: Worsening kidney function with acute kidney injury superimposed on chronic kidney disease with advanced liver cirrhosis and advanced ascites Status post paracentesis and removal of 8 liters Patient is stable to have ascites and significant leg edema , 2+ leg edema. I added Zaroxolyn 2.5 mg daily also torsemide 100 mg daily I stop Bumex. daily WT. We will consider dialysis if kidney function continued to deteriorate. Status: Chronic (2) Cirrhosis of liver with ascites Status: Chronic
[2016-10-19] MEDS: metOLazone 2.5 MG TAB PO SCH (12:53)
--- NOTE | 2016-10-19 12:54 | CP.PCM.PN ---
Subjective - Date & Time of Evaluation Date of Evaluation: 10/19/16 Time of Evaluation: 10:20 - Subjective Subjective: FEELS MUCH BETTER AFTER PARACENTESIS NO CHEST PAIN NO ABDOMINAL TIGHTNESS AND BREATHING EASIER Objective - Vital Signs/Intake and Output Vital Signs (last 24 hours): Temp Pulse Resp BP Pulse Ox 97.5 F L 77 18 97/52 L 96 10/19/16 08:15 10/19/16 09:00 10/19/16 08:15 10/19/16 08:15 10/19/16 08:15 Intake and Output: 10/19/16 10/19/16 06:59 18:59 Intake Total 100 Output Total 200 Balance -100 - Medications Medications: Current Medications Albumin Human (Albumin Human 25% (12.5 Gm/50 Ml)) 12.5 gm IV Q8 [facility] Last Admin: 10/19/16 09:01 Dose: 12.5 gm Lactulose (Enulose) 10 gm PO TID [facility] Last Admin: 10/19/16 08:58 Dose: 10 gm Metolazone (Zaroxolyn) 2.5 mg PO DAILY [facility] Torsemide (Demadex) 100 mg PO DAILY [facility] - Labs Labs: 10/19/16 05:35 10/19/16 05:35 PT 22.4 Seconds (9.8-13.1) H 10/19/16 05:35 INR 2.1 (0.9-1.2) H 10/19/16 05:35 - Respiratory Exam Respiratory Exam: Clear to Ausculation Bilateral - Cardiovascular Exam Cardiovascular Exam: REGULAR RHYTHM, +S1, +S2 - GI/Abdominal Exam GI & Abdominal Exam: Soft, Normal Bowel Sounds Additional comments: SIGNIFICANT DECREASE IN ASCITES - Extremities Exam Extremities Exam: Pedal Edema - Additional Findings Additional findings: 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
--- NOTE | 2016-10-19 18:25 | CARD ---
APPROVED REPORT EKG Measurement Heart [id number] <Conclusion> Normal sinus rhythm Left anterior fascicular block Left ventricular hypertrophy with QRS widening Abnormal ECG
[2016-10-20] MEDS: Albumin Human 25% (12.5 gm/50 ml) IV SCH ×3 (01:05→17:04)
[2016-10-20 07:03] LABS: HEMATOCRIT 26.8 % (35.0-51.0); MEAN CELL VOLUME 105.7 fl (80.0-94.0); MEAN CORPUSCULAR HEMOGLOBIN 35.9 pg (27.0-31.0); RED CELL DISTRIBUTION WIDTH 16.6 % (11.5-14.5); WHITE BLOOD COUNT 9.4 K/uL (4.8-10.8)
[2016-10-20 07:05] LABS: ALB/GLOB RATIO 0.6 (1.0-2.1); BILIRUBIN,TOTAL 2.3 mg/dl (0.2-1.3); CALCIUM 7.8 mg/dL (8.4-10.2); POTASSIUM 5.1 MMOL/L (3.6-5.0); TOTAL PROTEIN 6.7 G/DL (6.3-8.2)
[2016-10-20] MEDS: metOLazone 2.5 MG TAB PO SCH (08:09)
[2016-10-20] MEDS: Lactulose 10 gm/15 ml Syrup PO SCH ×3 (08:09→17:04)
[2016-10-20 08:56] LABS: CHLORIDE URINE <15 mmol/L (32-290)
--- NOTE | 2016-10-20 09:16 | CP.PCM.PN ---
Subjective - Date & Time of Evaluation Date of Evaluation: 10/20/16 Time of Evaluation: 09:00 - Subjective Subjective: FEELS MUCH BETTER AFTER PARACENTESIS BREATHING BETTER Objective - Vital Signs/Intake and Output Vital Signs (last 24 hours): Temp Pulse Resp BP Pulse Ox 97.5 F L 76 20 110/69 99 10/20/16 08:00 10/20/16 08:00 10/20/16 08:00 10/20/16 08:00 10/20/16 08:00 Intake and Output: 10/20/16 10/20/16 06:59 18:59 Intake Total 2650 Output Total 650 Balance 1999 - Medications Medications: Current Medications Albumin Human (Albumin Human 25% (12.5 Gm/50 Ml)) 12.5 gm IV Q8 [facility] Last Admin: 10/20/16 08:09 Dose: 12.5 gm Lactulose (Enulose) 10 gm PO TID [facility] Last Admin: 10/20/16 08:09 Dose: 10 gm Metolazone (Zaroxolyn) 2.5 mg PO DAILY [facility] Last Admin: 10/20/16 08:09 Dose: 2.5 mg Torsemide (Demadex) 100 mg PO DAILY [facility] Last Admin: 10/20/16 08:09 Dose: 100 mg - Labs Labs: 10/20/16 06:20 10/20/16 06:20 PT 22.4 Seconds (9.8-13.1) H 10/19/16 05:35 INR 2.1 (0.9-1.2) H 10/19/16 05:35 - Respiratory Exam Respiratory Exam: Clear to Ausculation Bilateral - Cardiovascular Exam Cardiovascular Exam: REGULAR RHYTHM, +S1, +S2 - Extremities Exam Additional comments: DECREASE IN EDEMA - Additional Findings Additional findings: SCOUT NSR BUN/CR 104/4.0 Assessment and Plan - Assessment and Plan (Free Text) Assessment: CIRRHOSIS OF THE LIVER WITH ASCITES S/P ATRIAL FIBRILLATION-REMAINS IN SINUS RHYTHM AORTIC SCLEROSIS RENAL FAILURE Plan: CONTINUE ALBUMEN AND LACTULOSE PER NEPHROLOGY
--- NOTE | 2016-10-20 09:58 | CP.PCM.PN ---
Subjective - Date & Time of Evaluation Date of Evaluation: 10/20/16 Time of Evaluation: 09:56 - Subjective Subjective: Patient sitting up in the chair. With some shortness of breath. No nausea or vomiting Distention of the abdomen Objective - Vital Signs/Intake and Output Vital Signs (last 24 hours): Temp Pulse Resp BP Pulse Ox 97.5 F L 76 20 110/69 99 10/20/16 08:00 10/20/16 08:00 10/20/16 08:00 10/20/16 08:00 10/20/16 08:00 Intake and Output: 10/20/16 10/20/16 06:59 18:59 Intake Total 2650 Output Total 650 Balance 2000 - Medications Medications: Current Medications Albumin Human (Albumin Human 25% (12.5 Gm/50 Ml)) 12.5 gm IV Q8 [facility] Last Admin: 10/20/16 08:09 Dose: 12.5 gm Lactulose (Enulose) 10 gm PO TID [facility] Last Admin: 10/20/16 08:09 Dose: 10 gm Metolazone (Zaroxolyn) 2.5 mg PO DAILY [facility] Last Admin: 10/20/16 08:09 Dose: 2.5 mg Torsemide (Demadex) 100 mg PO DAILY [facility] Last Admin: 10/20/16 08:09 Dose: 100 mg - Labs Labs: 10/20/16 06:20 10/20/16 06:20 PT 22.4 Seconds (9.8-13.1) H 10/19/16 05:35 INR 2.1 (0.9-1.2) H 10/19/16 05:35 - Constitutional Appears: No Acute Distress - Eye Exam Eye Exam: Conjunctival injection - ENT Exam ENT Exam: Mucous Membranes Moist - Respiratory Exam Respiratory Exam: Rhonchi, NORMAL BREATHING PATTERN. absent: Chest Wall Tenderness - Cardiovascular Exam Cardiovascular Exam: REGULAR RHYTHM. absent: Rubs - GI/Abdominal Exam GI & Abdominal Exam: Distended, Guarding, Normal Bowel Sounds Additional comments: Distended abdomen with significant ascites - Extremities Exam Extremities Exam: Pedal Edema. absent: Calf Tenderness - Back Exam Back Exam: absent: CVA tenderness (L), CVA tenderness (R) - Neurological Exam Neurological Exam: Alert Assessment and Plan (1) Chronic kidney disease, stage III (moderate) Assessment & Plan: Patient appeared to have acute kidney injury superimposed on chronic kidney disease is stage IV going into stage V worsening kidney function was rising BUN 104 rising serum creatinine 4.0 and CO2 started to come down. In addition serum potassium 5.1. Hemoglobin acceptable Intake and output noted patient has only 650 mL of urine output with positive intake of 2000 mL. Because of the massive ascites despite removing [place] of fluid with paracentesis couple days ago in addition increasing leg swollen despite torsemide and Zaroxolyn. We will proceed for hemodialysis I explained to the patient pros and cons and all the potential complications and benefit . Patient sign consent I discussed the case with the nurse practitioner and then lasts as well to control interventional radiologist to place either temporary catheter or permacath and we will proceed for hemodialysis tomorrow morning if we will get the line ready. Patient has advanced liver cirrhosis and anasarca basically. Prognosis overall is guarded. Also as noted patient was treated in [place] for what appeared to be endocarditis. Also as noted by cardiology patient who has atrial fibrillation and remain on the regular sinus rhythm. Status: Chronic (2) Cirrhosis of liver with ascites Status: Chronic
--- NOTE | 2016-10-20 17:06 | US ---
PROCEDURE: Ultrasound of the Kidneys HISTORY: [facility] COMPARISON: Contrast and pelvis CT 05/30/2016.. TECHNIQUE: Sonogram of the kidneys. FINDINGS: RIGHT KIDNEY: Measures: 11.1 x 5.6 x 6.7 cm. Normal in size, contour and echogenicity. No stone, solid mass lesion or hydronephrosis visualized. Definition is somewhat limited by body habitus. LEFT KIDNEY: Measures: 11.8 x 5.4 x 5.1 cm. Normal in size, contour and echogenicity. No stone, solid mass lesion or hydronephrosis visualized. Definition is somewhat limited by body habitus. OTHER FINDINGS: Urinary bladder was not evaluated as the Sanchez catheter was not clamped in this patient. Further, there is relatively prominent ascites incidentally noted. IMPRESSION: No obstructive uropathy or definitive cystic or solid renal mass bilaterally. Body habitus limits renal definition somewhat. Incidental note is made of relatively prominent ascites.
--- NOTE | 2016-10-20 17:08 | US ---
PROCEDURE: Ultrasound of the Bladder HISTORY: f/u COMPARISON: Abdomen pelvis CT 05/30/2016. TECHNIQUE: Sonographic evaluation of the bladder was performed. FINDINGS: Urinary bladder is completely decompressed as the Sanchez catheter was not clamped prior to the procedure. Urinary bladder davis are poorly evaluated as result. No prominent urolithiasis identified. No free fluid in pelvis. IMPRESSION: Limited urinary bladder ultrasound exam within nondistended urinary bladder appreciated due to Sanchez catheter placement. Catheter was not clamped prior to patient arrival at ultrasound department.
--- NOTE | 2016-10-20 20:56 | CP.PCM.PN ---
Subjective - Date & Time of Evaluation Date of Evaluation: 10/20/16 Time of Evaluation: 22:22 - Subjective Subjective: BUN/ creat increased Objective - Vital Signs/Intake and Output Vital Signs (last 24 hours): Temp Pulse Resp BP Pulse Ox 97.6 F 77 20 112/45 L 100 10/20/16 20:00 10/20/16 20:00 10/20/16 20:00 10/20/16 20:00 10/20/16 20:00 Intake and Output: 10/20/16 10/21/16 18:59 06:59 Intake Total 600 Output Total 500 Balance 100 - Medications Medications: Current Medications Albumin Human (Albumin Human 25% (12.5 Gm/50 Ml)) 12.5 gm IV Q8 [facility] Last Admin: 10/20/16 17:04 Dose: 12.5 gm Lactulose (Enulose) 10 gm PO TID [facility] Last Admin: 10/20/16 17:04 Dose: 10 gm Metolazone (Zaroxolyn) 2.5 mg PO DAILY [facility] Last Admin: 10/20/16 08:09 Dose: 2.5 mg Torsemide (Demadex) 100 mg PO DAILY [facility] Last Admin: 10/20/16 08:09 Dose: 100 mg - Labs Labs: 10/20/16 06:20 10/20/16 06:20 PT 21.5 Seconds (9.8-13.1) H 10/20/16 10:32 INR 2.1 (0.9-1.2) H 10/20/16 10:32 - Respiratory Exam Respiratory Exam: Wheezes - Cardiovascular Exam Cardiovascular Exam: REGULAR RHYTHM - GI/Abdominal Exam GI & Abdominal Exam: Normal Bowel Sounds
--- NOTE | 2016-10-20 20:58 | CP.PCM.PN ---
Subjective - Date & Time of Evaluation Date of Evaluation: 11/14/16 Time of Evaluation: 22:22 - Subjective Subjective: Above noted Objective - Vital Signs/Intake and Output Vital Signs (last 24 hours): Temp Pulse Resp BP Pulse Ox 97.6 F 77 20 112/45 L 100 10/20/16 20:00 10/20/16 20:00 10/20/16 20:00 10/20/16 20:00 10/20/16 20:00 Intake and Output: 10/20/16 10/21/16 18:59 06:59 Intake Total 600 Output Total 500 Balance 100 - Medications Medications: Current Medications Albumin Human (Albumin Human 25% (12.5 Gm/50 Ml)) 12.5 gm IV Q8 [facility] Last Admin: 10/20/16 17:04 Dose: 12.5 gm Lactulose (Enulose) 10 gm PO TID [facility] Last Admin: 10/20/16 17:04 Dose: 10 gm Metolazone (Zaroxolyn) 2.5 mg PO DAILY [facility] Last Admin: 10/20/16 08:09 Dose: 2.5 mg Torsemide (Demadex) 100 mg PO DAILY [facility] Last Admin: 10/20/16 08:09 Dose: 100 mg - Labs Labs: 10/20/16 06:20 10/20/16 06:20 PT 21.5 Seconds (9.8-13.1) H 10/20/16 10:32 INR 2.1 (0.9-1.2) H 10/20/16 10:32 - Respiratory Exam Respiratory Exam: NORMAL BREATHING PATTERN - Cardiovascular Exam Cardiovascular Exam: REGULAR RHYTHM - GI/Abdominal Exam GI & Abdominal Exam: Normal Bowel Sounds Assessment and Plan - Assessment and Plan (Free Text) Assessment: Cirrhosis Hepatosplenomegaly Portal HTN ascites etiol?? S/P Hepatic encephalopathy Pancytopenia Low prot/alb Ascites s/p multiple paracentesis Lasix zaroxylyn Lactulose GI CKD? Hepatorenal? Nephrology Dialysis [facility] Liver transplant? TIPS ? Endocarditis?? Get records Lower extremity edema with erythema much improved Leg elevation Lasix A-fib/ rate controlled Amiodorone INR 2.0 Cardiology ] Low back pain etiol? improved SOB? 2 to ascites Duoneb
--- NOTE | 2016-10-20 23:42 | CP.PCM.PN ---
Subjective - Date & Time of Evaluation Date of Evaluation: 10/20/16 Time of Evaluation: 14:00 - Subjective Subjective: Patient less alert today.Has rising BUN/creatinine Objective - Vital Signs/Intake and Output Vital Signs (last 24 hours): Temp Pulse Resp BP Pulse Ox 97.6 F 77 20 112/45 L 100 10/20/16 20:00 10/20/16 20:00 10/20/16 20:00 10/20/16 20:00 10/20/16 20:00 Intake and Output: 10/20/16 10/21/16 18:59 06:59 Intake Total 600 Output Total 500 Balance 100 - Medications Medications: Current Medications Albumin Human (Albumin Human 25% (12.5 Gm/50 Ml)) 12.5 gm IV Q8 [facility] Last Admin: 10/20/16 17:04 Dose: 12.5 gm Lactulose (Enulose) 10 gm PO TID [facility] Last Admin: 10/20/16 17:04 Dose: 10 gm Metolazone (Zaroxolyn) 2.5 mg PO DAILY [facility] Last Admin: 10/20/16 08:09 Dose: 2.5 mg Torsemide (Demadex) 100 mg PO DAILY [facility] Last Admin: 10/20/16 08:09 Dose: 100 mg - Labs Labs: 10/20/16 06:20 10/20/16 06:20 PT 21.5 Seconds (9.8-13.1) H 10/20/16 10:32 INR 2.1 (0.9-1.2) H 10/20/16 10:32 - Head Exam Head Exam: ATRAUMATIC - Eye Exam Eye Exam: EOMI - Neck Exam Neck Exam: Full ROM - Respiratory Exam Respiratory Exam: NORMAL BREATHING PATTERN - Cardiovascular Exam Cardiovascular Exam: REGULAR RHYTHM - GI/Abdominal Exam GI & Abdominal Exam: Soft, Normal Bowel Sounds. absent: Tenderness Assessment and Plan (1) Cirrhosis of liver with ascites Assessment & Plan: Abdomen still soft with just limited ascites reaccumulation. BUN/creatinine continue to rise and for hemodialysis. Status: Chronic
[2016-10-21] MEDS: Albumin Human 25% (12.5 gm/50 ml) IV SCH ×2 (00:28→12:00)
[2016-10-21 06:04] LABS: HEMATOCRIT 27.2 % (35.0-51.0); MEAN CELL VOLUME 106.7 fl (80.0-94.0); MEAN CORPUSCULAR HEMOGLOBIN 35.5 pg (27.0-31.0); MEAN CORPUSCULAR HGB CONC 33.3 g/dL (33.0-37.0); RED CELL DISTRIBUTION WIDTH 16.7 % (11.5-14.5)
[2016-10-21 06:21] LABS: ALB/GLOB RATIO 0.6 (1.0-2.1); BILIRUBIN,TOTAL 2.4 mg/dl (0.2-1.3); CALCIUM 7.8 mg/dL (8.4-10.2); POTASSIUM 4.1 MMOL/L (3.6-5.0); TOTAL PROTEIN 6.7 G/DL (6.3-8.2)
[2016-10-21] MEDS: Lactulose 10 gm/15 ml Syrup PO SCH ×3 (08:20→18:15)
--- NOTE | 2016-10-21 09:17 | CP.PCM.PN ---
Subjective - Date & Time of Evaluation Date of Evaluation: 10/21/16 Time of Evaluation: 09:00 - Subjective Subjective: NO CHEST PAIN OR SOB STILL FEELS BETTER AFTER PARACENTESIS Objective - Vital Signs/Intake and Output Vital Signs (last 24 hours): Temp Pulse Resp BP Pulse Ox 97.6 F 85 20 117/45 L 96 10/21/16 08:00 10/21/16 08:00 10/21/16 08:00 10/21/16 08:00 10/21/16 08:00 Intake and Output: 10/21/16 10/21/16 06:59 18:59 Intake Total 250 Output Total 400 Balance -150 - Medications Medications: Current Medications Albumin Human (Albumin Human 25% (12.5 Gm/50 Ml)) 12.5 gm IV Q8 [facility] Last Admin: 10/21/16 00:28 Dose: 12.5 gm Lactulose (Enulose) 10 gm PO TID [facility] Last Admin: 10/20/16 17:04 Dose: 10 gm Metolazone (Zaroxolyn) 2.5 mg PO DAILY [facility] Last Admin: 10/20/16 08:09 Dose: 2.5 mg Torsemide (Demadex) 100 mg PO DAILY [facility] Last Admin: 10/20/16 08:09 Dose: 100 mg - Labs Labs: 10/21/16 05:15 10/21/16 05:15 PT 21.5 Seconds (9.8-13.1) H 10/20/16 10:32 INR 2.1 (0.9-1.2) H 10/20/16 10:32 - Respiratory Exam Respiratory Exam: Clear to Ausculation Bilateral - Cardiovascular Exam Cardiovascular Exam: REGULAR RHYTHM, +S1, +S2 - Extremities Exam Additional comments: DECREASE IN LE EDEMA - Additional Findings Additional findings: BUN/CR 106/4.3 K+ 4.1 Assessment and Plan - Assessment and Plan (Free Text) Assessment: CIRRHOSIS OF THE LIVER RENAL FAILURE HEPATORENAL SYNDROME? S/P ATRIAL FIBRILLATION-REMAINS IN SINUS RHYTHM Plan: FOR HEMODIALYSIS TODAY CONTINUE LACTULOSE AND ALBUMEN OFFICE OF [facility] CAN WORKER DR BELLAMY CALLED YESTERDAY TO DISCUSS AORTIC SCLEROSIS AND DETAILS OF RECENT [facility] ADMISSION-HE WASN'T IN THE OFFICE AT THE TIME AND MY NAME AND PHONE NUMBER WERE LEFT BUT I HAVE NOT RECEIVED A CALL BACK FROM HIM YET
[2016-10-21] MEDS ORDERED: Lidocaine 1% Inj (20ml) ONE (10:43)
[2016-10-21] MEDS ORDERED: Epoetin Alfa 20000 UNIT/ML Inj IV ONE (10:51)
--- NOTE | 2016-10-21 10:53 | US ---
Ultrasound guided paracentesis. Clinical History: Ascites with abdominal pain and distension. Technique: The relative risks and indications for the procedure were explained to the patient and informed written consent obtained. Sonography of the abdomen was performed in a supine position. This revealed a large amount of non-loculated ascites, greatest in the right lower quadrant. A puncture site was selected and the area was prepped and draped in the usual sterile fashion. 1% lidocaine was used to anesthetize the skin and soft tissues. A 5 Greek paracentesis catheter was trocared into the right lower quadrant under real time ultrasound guidance. A permanent image was stored. 8.4 liters of clear yellow colored fluid aspirated. Impression: Ultrasound-guided paracentesis in the right lower quadrant. 8.4 liters of clear yellow colored fluid was aspirated.
--- NOTE | 2016-10-21 10:59 | CP.PCM.PN ---
Subjective - Date & Time of Evaluation Date of Evaluation: 10/21/16 Time of Evaluation: 10:57 - Subjective Subjective: Patient is conscious although he is having some mental changes Clinically no significant changes Patient is going for a temporary dialysis catheter which has been ordered from yesterday Objective - Vital Signs/Intake and Output Vital Signs (last 24 hours): Temp Pulse Resp BP Pulse Ox 97.4 F L 80 18 115/75 96 10/21/16 10:38 10/21/16 10:38 10/21/16 10:38 10/21/16 10:38 10/21/16 08:00 Intake and Output: 10/21/16 10/21/16 06:59 18:59 Intake Total 250 Output Total 400 Balance -150 - Medications Medications: Current Medications Epoetin Roberto (Procrit) 6,000 unit IV MWF ONE Stop: 10/21/16 10:52 Lactulose (Enulose) 10 gm PO TID [facility] Last Admin: 10/20/16 17:04 Dose: 10 gm Metolazone (Zaroxolyn) 2.5 mg PO DAILY [facility] Last Admin: 10/20/16 08:09 Dose: 2.5 mg Torsemide (Demadex) 100 mg PO DAILY [facility] Last Admin: 10/20/16 08:09 Dose: 100 mg - Labs Labs: 10/21/16 05:15 10/21/16 05:15 PT 22.3 Seconds (9.8-13.1) H 10/21/16 09:05 INR 2.1 (0.9-1.2) H 10/21/16 09:05 APTT 46.0 Seconds (25.6-37.1) H 10/21/16 09:05 - Constitutional Appears: No Acute Distress - ENT Exam ENT Exam: Mucous Membranes Moist - Respiratory Exam Respiratory Exam: absent: Chest Wall Tenderness - Cardiovascular Exam Cardiovascular Exam: absent: JVD, Rubs - GI/Abdominal Exam GI & Abdominal Exam: Guarding, Normal Bowel Sounds - Back Exam Back Exam: absent: CVA tenderness (L), CVA tenderness (R) - Neurological Exam Neurological Exam: Awake Assessment and Plan (1) Chronic kidney disease, stage III (moderate) Assessment & Plan: Acute kidney injury superimposed on chronic kidney disease stage IV with worsening kidney function and rising serum creatinine. Also worsening CO2 keep coming down slowly consistent with acidosis Patient is scheduled to have hemodialysis this morning although we are waiting for the catheter to be placed All arrangement has been done explanation and consent. Dialysis order was given with ultrafiltration approximately 1500 mL as tolerated Potassium bath 3 mEq Sodium bath 138 Carbonate bath 34 Support blood pressure with albumin . Urine output remained very low despite diuretics. PTH and phosphorus ordered Add EPO to the management And we will consider calcitriol when we did the PTH back Status: Chronic (2) Cirrhosis of liver with ascites Status: Chronic
--- NOTE | 2016-10-21 11:17 | PCM.SURG1 ---
Surgeon's Initial Post Op Note - Surgeon's Notes Surgeon: [facility] Housekeeper: None Type of Anesthesia: Local Pre-Operative Diagnosis: Renal failure. Operative Findings: Patent right IJV. Post-Operative Diagnosis: Renal failure. Operation Performed: Right IJV shilley placement. Specimen/Specimens Removed: None Estimated Blood Loss: EBL {In ML}: 3 Date of Surgery/Procedure: 10/21/16 Time of Surgery/Procedure: 11:10
--- NOTE | 2016-10-21 12:21 | VASCULAR ---
Ultrasound and fluoroscopically guided insertion of right internal jugular vein non tunneled dialysis catheter History: 71 -year-old male requiring non tunneled dialysis catheter for dialysis. Comparison: None. Anesthesia: Local lidocaine. Procedure findings: The procedure was explained to the patient with relative risks and benefits. The patient understood the procedure and provided written informed consent. The patient was positioned supine on the angiographic table. Continuous physiologic monitoring was provided by the interventional radiology nurse. The right neck region was prepped and draped in the usual sterile technique. Under direct ultrasound guidance, the right internal jugular vein was accessed using a 21 gauge micropuncture needle. A 0.018 inch wire was introduced through the needle into the SVC. The micropuncture needle was then exchanged for a 4 Guyanese transition catheter. A stiff guidewire was introduced through the transition catheter into the IVC. Permanent image was stored. The transition catheter was then removed and serial fascial dilators were introduced into the right neck extending up to the venotomy site. Subsequently, a 14 Guyanese, 15 centimeter dual lumen non tunneled dialysis catheter was introduced into the right internal jugular vein under fluoroscopic guidance. The catheter flushed with normal saline and heparin. The patient tolerated the procedure well without any incident. The patient was transferred from the interventional Radiology department in stable condition. Impression: Successful introduction of a right internal jugular vein non tunneled dialysis catheter. Catheter ready for use.
[2016-10-21] MEDS: metOLazone 2.5 MG TAB PO SCH (13:02)
--- NOTE | 2016-10-21 14:19 | CP.PCM.PN ---
Subjective - Date & Time of Evaluation Date of Evaluation: 10/21/16 Time of Evaluation: 14:16 - Subjective Subjective: He was seen for the second time now hemodialysis starting via right temporary dialysis catheter IJ. His son at the bedside His daughter called I discussed the case with the son and the daughter as well in addition to the patient Ultrafiltration has been decided to be about 1000 mL because of the blood pressure systolic about 110 no less And to give albumin if need to be. Patient cooperative and appeared to be comfortable And tolerating hemodialysis well Vital signs stable Objective - Vital Signs/Intake and Output Vital Signs (last 24 hours): Temp Pulse Resp BP Pulse Ox 97.8 F 80 18 104/42 L 98 10/21/16 12:24 10/21/16 12:24 10/21/16 12:24 10/21/16 12:24 10/21/16 12:24 Intake and Output: 10/21/16 10/21/16 06:59 18:59 Intake Total 250 Output Total 400 Balance -150 - Medications Medications: Current Medications Epoetin Roberto (Procrit) 6,000 [place] [facility] [place]actulose (Enulose) 10 gm PO TID [facility] Last Admin: 10/21/16 13:04 Dose: 10 gm Metolazone (Zaroxolyn) 2.5 mg PO DAILY [facility] Last Admin: 10/21/16 13:02 Dose: 2.5 mg Torsemide (Demadex) 100 mg PO DAILY [facility] Last Admin: 10/21/16 13:02 Dose: 100 mg - Labs Labs: 10/21/16 05:15 10/21/16 05:15 PT 22.3 Seconds (9.8-13.1) H 10/21/16 09:05 INR 2.1 (0.9-1.2) H 10/21/16 09:05 APTT 46.0 Seconds (25.6-37.1) H 10/21/16 09:05 Assessment and Plan (1) Chronic kidney disease, stage III (moderate) Status: Chronic (2) Cirrhosis of liver with ascites Status: Chronic
[2016-10-21] MEDS: Epoetin Alfa 20000 UNIT/ML Inj IV SCH (14:37)
[2016-10-21 15:40] VITALS: BMI 31.7
--- NOTE | 2016-10-21 18:54 | CP.PCM.PN ---
Subjective - Date & Time of Evaluation Date of Evaluation: 10/21/16 Time of Evaluation: 22:22 - Subjective Subjective: Dialysis today Objective - Vital Signs/Intake and Output Vital Signs (last 24 hours): Temp Pulse Resp BP Pulse Ox 98.5 F 83 20 116/42 L 98 10/21/16 15:27 10/21/16 15:27 10/21/16 15:27 10/21/16 15:27 10/21/16 15:27 Intake and Output: 10/21/16 10/21/16 06:59 18:59 Intake Total 250 Output Total 400 Balance -150 - Medications Medications: Current Medications Epoetin Roberto (Procrit) 6,000 unit IV MWF [facility] Last Admin: 10/21/16 14:37 Dose: 6,000 unit Lactulose (Enulose) 10 gm PO TID [facility] Last Admin: 10/21/16 18:15 Dose: 10 gm Metolazone (Zaroxolyn) 2.5 mg PO DAILY [facility] Last Admin: 10/21/16 13:02 Dose: 2.5 mg Torsemide (Demadex) 100 mg PO DAILY [facility] Last Admin: 10/21/16 13:02 Dose: 100 mg - Labs Labs: 10/21/16 05:15 10/21/16 05:15 PT 22.3 Seconds (9.8-13.1) H 10/21/16 09:05 INR 2.1 (0.9-1.2) H 10/21/16 09:05 APTT 46.0 Seconds (25.6-37.1) H 10/21/16 09:05 - Respiratory Exam Respiratory Exam: NORMAL BREATHING PATTERN - Cardiovascular Exam Cardiovascular Exam: REGULAR RHYTHM - GI/Abdominal Exam GI & Abdominal Exam: Normal Bowel Sounds Assessment and Plan - Assessment and Plan (Free Text) Assessment: Cirrhosis Hepatosplenomegaly Portal HTN ascites etiol?? S/P Hepatic encephalopathy Pancytopenia Low prot/alb Ascites s/p multiple paracentesis Lasix zaroxylyn Lactulose GI CKD? Hepatorenal? Nephrology Dialysis [facility] Liver transplant? TIPS ? Endocarditis?? Get records Lower extremity edema with erythema much improved Leg elevation Lasix A-fib/ rate controlled Amiodorone INR 2.0 Cardiology ] Low back pain etiol? improved SOB? 2 to ascites Duoneb
--- NOTE | 2016-10-21 20:07 | CP.PCM.PN ---
Subjective - Date & Time of Evaluation Date of Evaluation: 10/21/16 Time of Evaluation: 16:45 - Subjective Subjective: patient now on hemodialysis for renal failure Objective - Vital Signs/Intake and Output Vital Signs (last 24 hours): Temp Pulse Resp BP Pulse Ox 98.5 F 83 20 116/42 L 98 10/21/16 15:27 10/21/16 15:27 10/21/16 15:27 10/21/16 15:27 10/21/16 15:27 - Medications Medications: Current Medications Epoetin Roberto (Procrit) 6,000 unit IV MWF [facility] Last Admin: 10/21/16 14:37 Dose: 6,000 unit Lactulose (Enulose) 10 gm PO TID [facility] Last Admin: 10/21/16 18:15 Dose: 10 gm Metolazone (Zaroxolyn) 2.5 mg PO DAILY [facility] Last Admin: 10/21/16 13:02 Dose: 2.5 mg Torsemide (Demadex) 100 mg PO DAILY [facility] Last Admin: 10/21/16 13:02 Dose: 100 mg - Labs Labs: 10/21/16 05:15 10/21/16 05:15 PT 22.3 Seconds (9.8-13.1) H 10/21/16 09:05 INR 2.1 (0.9-1.2) H 10/21/16 09:05 APTT 46.0 Seconds (25.6-37.1) H 10/21/16 09:05 - Head Exam Head Exam: ATRAUMATIC - Eye Exam Eye Exam: Normal appearance - Neck Exam Neck Exam: Normal Inspection - Respiratory Exam Respiratory Exam: NORMAL BREATHING PATTERN - Cardiovascular Exam Cardiovascular Exam: +S1, +S2 - GI/Abdominal Exam GI & Abdominal Exam: Distended, Soft Assessment and Plan (1) Cirrhosis of liver with ascites Assessment & Plan: Now on hemodialysis due to renal failure. Possible TIPS for intractable ascites. Status: Chronic
[2016-10-22 06:53] LABS: RBC URINE 478 /hpf (0-3); URINE BACTERIA RARE (<OCC); URINE BILIRUBIN NEGATIVE (NEGATIVE); URINE BLOOD LARGE (NEGATIVE); URINE COLOR YELLOW (YELLOW); URINE GLUCOSE (UA) NEG (Normal); URINE KETONE NEGATIVE (NEGATIVE); URINE LEUKOCYTE ESTERASE MOD Leu/uL (Negative); URINE PROTEIN 30 mg/dL (NEGATIVE); URINE UROBILINOGEN 0.2-1.0 mg/dL (0.2-1.0); WBC URINE 34 /hpf (0-5)
[2016-10-22 08:31] LABS: CALCIUM 7.6 mg/dL (8.4-10.2); POTASSIUM 3.4 MMOL/L (3.6-5.0)
[2016-10-22] MEDS: metOLazone 2.5 MG TAB PO SCH (08:49)
[2016-10-22] MEDS: Lactulose 10 gm/15 ml Syrup PO SCH ×3 (08:49→16:23)
--- NOTE | 2016-10-22 14:57 | CARD ---
APPROVED REPORT EXAM: Two-dimensional and M-mode echocardiogram with Doppler and color Doppler. Other Information Quality : GoodRhythm : NSR INDICATION Aortic Valve Disease 2D DIMENSIONS IVSd0.91 (0.7-1.1cm)LVDd6.02 (3.9-5.9cm) LVOT Diameter2.30 (1.8-2.4cm)PWd0.83 (0.7-1.1cm) IVSs1.67 (0.8-1.2cm)LVDs4.16 (2.5-4.0cm) FS (%) 30.8 %PWs1.29 (0.8-1.2cm) M-Mode DIMENSIONS Left Atrium (MM)5.12 (2.5-4.0cm)IVSd1.44 (0.7-1.1cm) Aortic Root3.94 (2.2-3.7cm)LVDd6.26 (4.0-5.6cm) Aortic Cusp Exc.2.38 (1.5-2.0cm)PWd1.12 (0.7-1.1cm) IVSs2.41 cmFS (%) 54 % LVDs2.91 (2.0-3.8cm)PWs1.74 cm Aortic Valve AoV Peak Dlvvppaa808.1cm/sAoV VTI68.4cmAO Peak GR.32mmHg LVOT Peak Yvtnyfsj529.1cm/sLVOT VTI30.75cmAO Mean GR.19mmHg MAYDA (VMAX)0.34gn9GPV (VTI)0.84cm2 Mitral Valve E/A ratio0.0 TDI E/Lateral E'0.0E/Medial E'0.0 Tricuspid Valve TR Peak Frnymphm751zl/sRAP [id number] Peak Gr.23mmHg [id number] LEFT VENTRICLE The Left Ventricle is mildly dilated. There is normal left ventricular wall thickness on the 2D study. The left ventricular function is normal. The left ventricular ejection fraction is - 65-70%. There is normal LV segmental wall motion. The left ventricular diastolic function is normal. No left ventricle thrombus noted on this study. There is no ventricular septal defect visualized. There is no left ventricular aneurysm. There is no mass noted in the left ventricle. RIGHT VENTRICLE The right ventricle is normal size. There is normal right ventricular wall thickness. The right ventricular systolic function is normal. ATRIA The left atrium is mildly dilated. There is no thrombus suspected in the left atrium. The right atrium size is normal. The interatrial septum is intact with no evidence for an atrial septal defect. AORTIC VALVE The aortic valve is moderately to severely calcified. There is severe aortic regurgitation. The are 2 AR jets. The anterior one is mild and the posterior one is severe. There ia mild aortic stenosis with an MAYDA of 1.95 sq cms. There is a 2.56 cm by 1.0 cm density seen on the AV that may be a calcium nodule but a vegetation could not be excluded. MITRAL VALVE The mitral valve is normal in structure and function. There is no evidence of mitral valve prolapse. There is no mitral valve stenosis. Mitral regurgitation is mild. TRICUSPID VALVE The tricuspid valve is normal in structure and function. There is mild tricuspid regurgitation. Right ventricular systolic pressure is estimated at 33 mmHg. There is no tricuspid valve prolapse or vegetation. There is no tricuspid valve stenosis. PULMONIC VALVE The pulmonary valve is normal in structure and function. There is trace pulmonic valvular regurgitation. GREAT VESSELS The aortic root is normal in size. The IVC was not well visualized. PERICARDIAL EFFUSION The pericardium appears normal. There is no pleural effusion. <Conclusion> The Left Ventricle is mildly dilated. There is normal left ventricular wall thickness on the 2D study. The left ventricular function is normal. The left ventricular ejection fraction is - 65-70%. The left atrium is mildly dilated. There is calcific aortic sclerosis and there is mild aortic stenosis with an MAYDA of 1.95 sq cms. There is severe aortic regurgitation. There is a 2.56 cm by 1.0 cm density seen on the AV that may be a calcium nodule but a vegetation could not be excluded. The mitral and tricuspid valves are normal. There is mild mitral regurgitation and mild tricuspid regurgitation.
[2016-10-22] MEDS ORDERED: Lidocaine 5% Patch TD SCH (15:37)
--- NOTE | 2016-10-22 15:39 | CP.PCM.PN ---
Subjective - Date & Time of Evaluation Date of Evaluation: 10/22/16 Time of Evaluation: 12:30 - Subjective Subjective: NO CHEST PAIN OR SOB FEELS OK Objective - Vital Signs/Intake and Output Vital Signs (last 24 hours): Temp Pulse Resp BP Pulse Ox 97.7 F 80 20 111/46 L 98 10/22/16 12:09 10/22/16 12:09 10/22/16 12:09 10/22/16 12:09 10/22/16 12:09 Intake and Output: 10/22/16 10/22/16 06:59 18:59 Intake Total 150 Output Total 200 Balance -50 - Medications Medications: Current Medications Epoetin Roberto (Procrit) 6,000 unit IV MWF [facility] Last Admin: 10/21/16 14:37 Dose: 6,000 unit Lactulose (Enulose) 10 gm PO TID [facility] Last Admin: 10/22/16 12:34 Dose: 10 gm Metolazone (Zaroxolyn) 2.5 mg PO DAILY [facility] Last Admin: 10/22/16 08:49 Dose: 2.5 mg Torsemide (Demadex) 100 mg PO DAILY [facility] Last Admin: 10/22/16 08:48 Dose: 100 mg - Labs Labs: 10/21/16 05:15 10/22/16 06:00 PT 22.3 Seconds (9.8-13.1) H 10/21/16 09:05 INR 2.1 (0.9-1.2) H 10/21/16 09:05 APTT 46.0 Seconds (25.6-37.1) H 10/21/16 09:05 - Respiratory Exam Respiratory Exam: Clear to Ausculation Bilateral - Cardiovascular Exam Cardiovascular Exam: REGULAR RHYTHM, +S1, +S2, Murmur - GI/Abdominal Exam GI & Abdominal Exam: Firm, Normal Bowel Sounds Additional comments: ASCITES REACCUMULATING - Extremities Exam Extremities Exam: Pedal Edema - Additional Findings 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 I DISCUSSED THE PATIENT WITH HIM AND THE RENAL FAILURE. HE STATED THAT THEY WOULD ACCEPT HIM TO [facility] ON TRANSFER ONCE THEY KIDNEYS IMPROVE AND CONSIDER HIM FOR TAVR. BUN/CR 86/3.6 Assessment and Plan - Assessment and Plan (Free Text) Assessment: SEVERE AORTIC REGURGITATION(NEW SINCE MAY 2016) WITH NODULE ON AV- CALCIUM? VEGETATION? BLOOD CULTURES AT [facility] WERE NEGATIVE BUT THEY TREATED HIM FOR ENDOCARDITIS ANYWAY GOOD LV SYSTOLIC FUNCTION CIRRHOSIS OF THE LIVER RENAL FAILURE Plan: CONTINUE LACTULOSE AND HD I ASKED DR DALTON TO SEE HIM BECAUSE IT HE GOES TO [facility] FOR TAVR HE WILL NEED TO HAVE ID ON BOARD. I ORDERED 3 SETS OF BLOOD CULTURES. I DO NOT RECOMMEND RESTARTING ANTIBIOTICS NOW HE HAD PROLONGED ANTIBIOTIC TREATMENT HERE EARLIER IN THE YEAR AND RECENTLY AT [facility] AND IN [place]
--- NOTE | 2016-10-22 20:56 | CP.PCM.PN ---
Subjective - Date & Time of Evaluation Date of Evaluation: 10/22/16 Time of Evaluation: 22:22 - Subjective Subjective: Resting in bed Dialysis again today Cardiology note appreciated Objective - Vital Signs/Intake and Output Vital Signs (last 24 hours): Temp Pulse Resp BP Pulse Ox 97.9 F 84 20 100/53 L 98 10/22/16 16:00 10/22/16 16:00 10/22/16 16:00 10/22/16 16:00 10/22/16 16:00 Intake and Output: 10/22/16 10/23/16 18:59 06:59 Output Total 400 Balance -400 - Medications Medications: Current Medications Epoetin Roberto (Procrit) 6,000 unit IV MWF [facility] Last Admin: 10/21/16 14:37 Dose: 6,000 unit Lactulose (Enulose) 10 gm PO TID [facility] Last Admin: 10/22/16 16:23 Dose: 10 gm Lidocaine (Lidoderm) 1 ea TD DAILY [facility] Last Admin: 10/22/16 15:48 Dose: 1 ea Metolazone (Zaroxolyn) 2.5 mg PO DAILY [facility] Last Admin: 10/22/16 08:49 Dose: 2.5 mg Torsemide (Demadex) 100 mg PO DAILY [facility] Last Admin: 10/22/16 08:48 Dose: 100 mg - Labs Labs: 10/21/16 05:15 10/22/16 06:00 PT 22.3 Seconds (9.8-13.1) H 10/21/16 09:05 INR 2.1 (0.9-1.2) H 10/21/16 09:05 APTT 46.0 Seconds (25.6-37.1) H 10/21/16 09:05 - Respiratory Exam Respiratory Exam: NORMAL BREATHING PATTERN - Cardiovascular Exam Cardiovascular Exam: REGULAR RHYTHM - GI/Abdominal Exam GI & Abdominal Exam: Normal Bowel Sounds Assessment and Plan - Assessment and Plan (Free Text) Assessment: Cirrhosis Hepatosplenomegaly Portal HTN ascites etiol?? S/P Hepatic encephalopathy Pancytopenia Low prot/alb Ascites s/p multiple paracentesis Lasix zaroxylyn Lactulose GI ROBB CKD? Hepatorenal? Nephrology Dialysis [facility] Liver transplant? TIPS ? Severe AI Endocarditis?? Cardiology and ID A-fib/ rate controlled Amiodorone INR 2.0 ] Low back pain etiol? Lidocaine
[2016-10-23] MEDS: Lactulose 10 gm/15 ml Syrup PO SCH ×3 (08:52→16:13)
[2016-10-23] MEDS: metOLazone 2.5 MG TAB PO SCH (08:52)
[2016-10-23] MEDS ORDERED: Lidocaine 5% Patch TD PRN (08:53)
--- NOTE | 2016-10-23 12:08 | CP.PCM.PN ---
Subjective - Date & Time of Evaluation Date of Evaluation: 10/22/16 Time of Evaluation: 11:00 - Subjective Subjective: no events overnight Objective - Vital Signs/Intake and Output Vital Signs (last 24 hours): Temp Pulse Resp BP Pulse Ox 97.7 F 69 18 104/50 L 96 10/23/16 08:23 10/23/16 08:59 10/23/16 08:23 10/23/16 08:23 10/23/16 08:23 - Medications Medications: Current Medications Epoetin Roberto (Procrit) 6,000 unit IV MWF [facility] Last Admin: 10/21/16 14:37 Dose: 6,000 unit Lactulose (Enulose) 10 gm PO TID [facility] Last Admin: 10/23/16 12:02 Dose: 10 gm Lidocaine (Lidoderm) 1 ea TD DAILY PRN PRN Reason: Pain, moderate (4-7) Metolazone (Zaroxolyn) 2.5 mg PO DAILY [facility] Last Admin: 10/23/16 08:52 Dose: 2.5 mg Torsemide (Demadex) 100 mg PO DAILY [facility] Last Admin: 10/23/16 08:51 Dose: 100 mg - Labs Labs: 10/21/16 05:15 10/22/16 06:00 PT 22.3 Seconds (9.8-13.1) H 10/21/16 09:05 INR 2.1 (0.9-1.2) H 10/21/16 09:05 APTT 46.0 Seconds (25.6-37.1) H 10/21/16 09:05 - Constitutional Appears: Non-toxic, In Acute Distress - Head Exam Head Exam: NORMAL INSPECTION - Eye Exam Eye Exam: Normal appearance - ENT Exam ENT Exam: Mucous Membranes Moist - Neck Exam Neck Exam: Normal Inspection - Respiratory Exam Respiratory Exam: NORMAL BREATHING PATTERN - Cardiovascular Exam Cardiovascular Exam: +S1, +S2 - GI/Abdominal Exam GI & Abdominal Exam: Distended, Soft - Neurological Exam Neurological Exam: Awake - Psychiatric Exam Psychiatric exam: Flat Affect Assessment and Plan - Assessment and Plan (Free Text) Plan: esrd/cirrhosis/anemia/hypokalemia hd second session today santi reviewed anemia: epo with hd bp acceptable
--- NOTE | 2016-10-23 12:14 | CP.PCM.PN ---
Subjective - Date & Time of Evaluation Date of Evaluation: 10/24/16 Time of Evaluation: 10:00 - Subjective Subjective: NO NEW COMPLAINTS FEELING BETTER Objective - Vital Signs/Intake and Output Vital Signs (last 24 hours): Temp Pulse Resp BP Pulse Ox 97.7 F 69 18 104/50 L 96 10/23/16 08:23 10/23/16 08:59 10/23/16 08:23 10/23/16 08:23 10/23/16 08:23 - Medications Medications: Current Medications Epoetin Roberto (Procrit) 6,000 unit IV [facility] Last Admin: 10/21/16 14:37 Dose: 6,000 unit Lactulose (Enulose) 10 gm PO TID [facility] Last Admin: 10/23/16 12:02 Dose: 10 gm Lidocaine (Lidoderm) 1 ea TD DAILY PRN PRN Reason: Pain, moderate (4-7) Metolazone (Zaroxolyn) 2.5 mg PO DAILY [facility] Last Admin: 10/23/16 08:52 Dose: 2.5 mg Torsemide (Demadex) 100 mg PO DAILY [facility] Last Admin: 10/23/16 08:51 Dose: 100 mg - Labs Labs: 10/21/16 05:15 10/22/16 06:00 PT 22.3 Seconds (9.8-13.1) H 10/21/16 09:05 INR 2.1 (0.9-1.2) H 10/21/16 09:05 APTT 46.0 Seconds (25.6-37.1) H 10/21/16 09:05 - Respiratory Exam Respiratory Exam: Clear to Ausculation Bilateral - Cardiovascular Exam Cardiovascular Exam: REGULAR RHYTHM, +S1, +S2 - GI/Abdominal Exam GI & Abdominal Exam: Soft, Normal Bowel Sounds - Extremities Exam Additional comments: MILD LE EDEMA - Additional Findings 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 PATIENT RECENTLY TREATED FOR ENDOCARDITIS. CULTURES WERE NEGATIVE CIRRHOSIS OF THE LIVER RENAL FAILURE Plan: CONTINUE LACTULOSE AND HD THE PATIENT WILL BE TRANSFERRED TO [facility] FOR TAVR ONCE RENAL FUNCTION IMPROVES FOR LIVER TRANSPLANT EVALUATION AT [facility] AND TIPS CAN BE CONSIDERED
--- NOTE | 2016-10-23 12:48 | CP.PCM.CON ---
History of Present Illness - History of Present Illness History of Present Illness: 71 yo male admitted to [facility] with refractory ascites secondary to cirrhosis ( idiopathic) as well as Acute on chronic renal failure Was treated here on several occasions for bacteremia / sepsis and had negative MEL On at least one occasion pt was treated with [facility] IV antibiotics for Staph epidermidis sepsis He is currently off antibiotics and denies fever chills cough or SOB Cultures are pending PMH- COPD, Cirrhosis, ascites, afib , OA, Aortic Valve sclerosis CKD Review of Systems - Constitutional Constitutional: As Per HPI, Malaise. absent: Chills, Fever, Night Sweats - EENT Eyes: absent: As Per HPI, Blind Spots, Blurred Vision, Change in Vision, Decreased Night Vision, Diplopia, Discharge, Dry Eye, Exophthalmos, Floaters, Irritation, Itchy Eyes, Loss of Peripheral Vision, Pain, Photophobia, Requires Corrective Lenses, Sees Flashes, Spots in Vision, Tunnel Vision, Other Visual Disturbances, Loss of Vision, Other Ears: absent: As Per HPI, Decreased Hearing, Ear Discharge, Ear Pain, Tinnitus, Abnormal Hearing, Disequilibrium, Dizziness, Other Nose/Mouth/Throat: absent: As Per HPI, Epistaxis, Nasal Congestion, Nasal Discharge, Nasal Obstruction, Nasal Trauma, Nose Pain, Post Nasal Drip, Sinus Pain, Sinus Pressure, Bleeding Gums, Change in Voice, Dental Pain, Dry Mouth, Dysphagia, Halitosis, Hoarsness, Lip Swelling, Mouth Lesions, Mouth Pain, Odynophagia, Sore Throat, Throat Swelling, Tongue Swelling, Facial Pain, Neck Pain, Neck Mass, Other - Cardiovascular Cardiovascular: As Per HPI - Respiratory Respiratory: absent: As Per HPI, Cough, Dyspnea, Hemoptysis, Dyspnea on Exertion , Wheezing, Snoring, Stridor, Pain on Inspiration, Chest Congestion, Excessive Mucous Production, Change in Mucous Color, Pain with Coughing, Other - Gastrointestinal Gastrointestinal: As Per HPI - Genitourinary Genitourinary: absent: As Per HPI, Change in Urinary Stream, Difficulty Urinating, Dysuria, Flank Pain, Hematuria, Pyuria, Nocturia, Urinary Incontinence, Urinary Frequency, Urinary Hesitance, Urinary Urgency, Voiding Freq/Small Amts, Freq UTI, Hx Renal/Bladder Calculi, Hx /Renal Surgery, Bladder Distension, Other - Musculoskeletal Musculoskeletal: absent: As Per HPI, Abnormal Gait, Arthralgias, Atrophy, Back Pain, Deformity, Joint Swelling, Limited Range of Motion, Loss of Height, Muscle Cramps, Muscle Weakness, Myalgias, Neck Pain, Numbness, Radiating Pain into Limb, Stiffness, Tingling, Other - Integumentary Integumentary: absent: As Per HPI, Acne, Alopecia, Bleeding Lesions, Change in Hair, Change in Nails, Change in Pigmentation, Changing Lesions, Dry Skin, Erythema, Furuncle, Hirsutism, Lesions, New Lesions, Non-Healing Lesions, Photosensitivity, Pruritus, Rash, Skin Pain, Skin Ulcer, Sores, Striae, Swelling , Unusual Bruising, Wounds, Jaundice, Other - Neurological Neurological: absent: As Per HPI, Abnormal Gait, Abnormal Hearing, Abnormal Movements, Abnormal Speech, Behavioral Changes, Burning Sensations, Confusion, Convulsions, Disequilibrium, Dizziness, Numbness, Focal Weakness, Frequent Falls , Headaches, Lack of Coordination, Loss of Vision, Memory Loss, Paresthesias, Radicular Pain, Restless Legs, Sensory Deficit, Syncope, Tingling, Tremor, Vertigo, Weakness, Other Visual Disturbances, Other - Psychiatric Psychiatric: absent: As Per HPI, Abnormal Sleep Pattern, Anhedonia, Anxiety, Auditory Hallucinations, Behavioral Changes, Change in Appetite, Change in Libido, Confusion, Depression, Difficulty Concentrating, Hallucinations, Homicidal Ideation, Hopelessness, Irritability, Memory Loss, Mood Swings, Panic Attacks, Paranoia, Suicidal Ideation, Visual Hallucinations, Tactile Hallucinations, Other - Endocrine Endocrine: absent: As Per HPI, Change in Body Appearance, Change in Libido, Cold Intolorance, Deepening of Voice, Excessive Sweating, Fatigue, Flushing, Heat Intolorance, Increase in Ring/Shoe/Hat Size, Palpitations, Polydipsia, Polyphagia, Polyuria, Other - Hematologic/Lymphatic Hematologic: absent: As Per HPI, Easy Bleeding, Easy Bruising, Lymphadenopathy, Other Past Patient History - Infectious Disease Hx of Infectious Diseases: None - Past Medical History & Family History Past Medical History?: Yes - Past Social History Smoking Status: Former Smoker - CARDIAC Hx Cardiac Disorders: Yes (AFIB/Murmur/HTN/BLE edema) - PULMONARY Hx Respiratory Disorders: No - NEUROLOGICAL Hx Neurological Disorder: No - HEENT Hx HEENT Problems: No Other/Comment: uses eye glasses - RENAL Hx Chronic Kidney Disease: Yes - ENDOCRINE/METABOLIC Hx Endocrine Disorders: No - HEMATOLOGICAL/ONCOLOGICAL Hx Human Immunodeficiency Virus (HIV): No - INTEGUMENTARY Hx Dermatological Problems: Yes Hx Cellulitis: Yes - MUSCULOSKELETAL/RHEUMATOLOGICAL Hx Musculoskeletal Disorders: Yes (Arthritis/Back problems) Hx Falls: Yes - GASTROINTESTINAL Hx Gastrointestinal Disorders: Yes Other/Comment: Ascites - GENITOURINARY/GYNECOLOGICAL Hx Genitourinary Disorders: No - PSYCHIATRIC Hx Psychophysiologic Disorder: No Hx Substance Use: No - SURGICAL HISTORY Hx Surgeries: Yes Other/Comment: 2000 arthroscopic knee surgery - ANESTHESIA Hx Anesthesia: Yes Hx Anesthesia Reactions: No Hx Malignant Hyperthermia: No Meds Allergies/Adverse Reactions: Allergies Allergy/AdvReac Type Severity Reaction Status Date / Time No Known Allergies Allergy Verified 09/07/16 20:08 - Medications Medications: Current Medications Epoetin Roberto (Procrit) 6,000 unit IV MWF [facility] Last Admin: 10/21/16 14:37 Dose: 6,000 unit Lactulose (Enulose) 10 gm PO TID [facility] Last Admin: 10/23/16 12:02 Dose: 10 gm Lidocaine (Lidoderm) 1 ea TD DAILY PRN PRN Reason: Pain, moderate (4-7) Metolazone (Zaroxolyn) 2.5 mg PO DAILY [facility] Last Admin: 10/23/16 08:52 Dose: 2.5 mg Torsemide (Demadex) 100 mg PO DAILY [facility] Last Admin: 10/23/16 08:51 Dose: 100 mg Physical Exam - Constitutional Appears: Non-toxic, Chronically Ill - Head Exam Head Exam: ATRAUMATIC, NORMAL INSPECTION, NORMOCEPHALIC - Eye Exam Eye Exam: EOMI, PERRL. absent: Scleral icterus - ENT Exam ENT Exam: Mucous Membranes Dry, Normal External Ear Exam - Neck Exam Neck exam: Negative for: Lymphadenopathy, Thyromegaly - Respiratory Exam Respiratory Exam: Decreased Breath Sounds, Rhonchi - Cardiovascular Exam Cardiovascular Exam: REGULAR RHYTHM, +S1, +S2 - GI/Abdominal Exam GI & Abdominal Exam: Diminished Bowel Sounds, Distended, Soft. absent: Guarding , Rebound, Rigid, Tenderness Additional comments: +++ Ascites - Rectal Exam Rectal Exam: Deferred - Exam Exam: NORMAL INSPECTION - Extremities Exam Extremities exam: Positive for: pedal edema, pedal pulses present. Negative for : calf tenderness, tenderness - Back Exam Back exam: absent: CVA tenderness (L), CVA tenderness (R), paraspinal tenderness - Neurological Exam Neurological exam: Alert, CN II-XII Intact, Oriented x3, Reflexes Normal - Psychiatric Exam Psychiatric exam: Normal Mood - Skin Skin Exam: Dry Results - Vital Signs Recent Vital Signs: Last Vital Signs Temp 98.2 F 10/23/16 12:41 Pulse 81 10/23/16 12:41 Resp 20 10/23/16 12:41 BP 114/40 L 10/23/16 12:41 Pulse Ox 97 10/23/16 12:41 - Labs Result Diagrams: 10/21/16 05:15 10/22/16 06:00 Assessment & Plan (1) Chronic kidney disease, stage III (moderate) Status: Chronic (2) Cirrhosis of liver with ascites Status: Chronic Priority: High (3) Ascites of liver Status: Acute (4) Leg edema Status: Chronic Priority: High - Assessment and Plan (Free Text) Assessment: cont to observe off antibiotics was treated for endocarditis will check procalcitonin levels
--- NOTE | 2016-10-23 22:45 | CP.PCM.PN ---
Subjective - Date & Time of Evaluation Date of Evaluation: 10/23/16 Time of Evaluation: 22:22 - Subjective Subjective: ID and cardiology notes appreciated Objective - Vital Signs/Intake and Output Vital Signs (last 24 hours): Temp Pulse Resp BP Pulse Ox 97.9 F 81 20 106/47 L 97 10/23/16 19:41 10/23/16 19:41 10/23/16 19:41 10/23/16 19:41 10/23/16 19:41 Intake and Output: 10/23/16 10/24/16 18:59 06:59 Output Total 275 Balance -275 - Medications Medications: Current Medications Epoetin Roberto (Procrit) 6,000 unit IV MWF [facility] Last Admin: 10/21/16 14:37 Dose: 6,000 unit Lactulose (Enulose) 10 gm PO TID [facility] Last Admin: 10/23/16 16:13 Dose: 10 gm Lidocaine (Lidoderm) 1 ea TD DAILY PRN PRN Reason: Pain, moderate (4-7) Metolazone (Zaroxolyn) 2.5 mg PO DAILY [facility] Last Admin: 10/23/16 08:52 Dose: 2.5 mg Torsemide (Demadex) 100 mg PO DAILY [facility] Last Admin: 10/23/16 08:51 Dose: 100 mg - Labs Labs: 10/21/16 05:15 10/22/16 06:00 PT 22.3 Seconds (9.8-13.1) H 10/21/16 09:05 INR 2.1 (0.9-1.2) H 10/21/16 09:05 APTT 46.0 Seconds (25.6-37.1) H 10/21/16 09:05 Assessment and Plan - Assessment and Plan (Free Text) Assessment: Cirrhosis Hepatosplenomegaly Portal HTN ascites etiol?? S/P Hepatic encephalopathy Pancytopenia Low prot/alb Ascites s/p multiple paracentesis Lasix zaroxylyn Lactulose GI ROBB CKD? Hepatorenal? Nephrology Dialysis [facility] Liver transplant? TIPS ? Severe AI Endocarditis?? Cardiology and ID A-fib/ rate controlled Amiodorone INR 2.0 ] Low back pain etiol? Lidocaine
[2016-10-24] MEDS: Lactulose 10 gm/15 ml Syrup PO SCH ×3 (08:42→17:56)
[2016-10-24] MEDS: Epoetin Alfa 20000 UNIT/ML Inj IV SCH (08:43)
[2016-10-24] MEDS: metOLazone 2.5 MG TAB PO SCH (08:44)
--- NOTE | 2016-10-24 09:44 | CP.PCM.PN ---
Subjective - Date & Time of Evaluation Date of Evaluation: 10/24/16 Time of Evaluation: 08:00 - Subjective Subjective: FEELS OK NO NEW COMPLAINTS Objective - Vital Signs/Intake and Output Vital Signs (last 24 hours): Temp Pulse Resp BP Pulse Ox 98.2 F 78 20 101/40 L 100 10/24/16 08:00 10/24/16 08:00 10/24/16 08:00 10/24/16 08:00 10/24/16 08:00 Intake and Output: 10/24/16 10/24/16 06:59 18:59 Output Total 250 Balance -250 - Medications Medications: Current Medications Epoetin Roberto (Procrit) 6,000 unit IV MWF [facility] Last Admin: 10/24/16 08:43 Dose: 6,000 unit Lactulose (Enulose) 10 gm PO TID [facility] Last Admin: 10/24/16 08:42 Dose: 10 gm Lidocaine (Lidoderm) 1 ea TD DAILY PRN PRN Reason: Pain, moderate (4-7) Metolazone (Zaroxolyn) 2.5 mg PO DAILY [facility] Last Admin: 10/24/16 08:44 Dose: Not Given Torsemide (Demadex) 100 mg PO DAILY [facility] Last Admin: 10/24/16 08:44 Dose: Not Given - Labs Labs: 10/21/16 05:15 10/22/16 06:00 PT 22.3 Seconds (9.8-13.1) H 10/21/16 09:05 INR 2.1 (0.9-1.2) H 10/21/16 09:05 APTT 46.0 Seconds (25.6-37.1) H 10/21/16 09:05 - Respiratory Exam Respiratory Exam: Clear to Ausculation Bilateral - Cardiovascular Exam Cardiovascular Exam: REGULAR RHYTHM, +S1, +S2 - Extremities Exam Extremities Exam: Pedal Edema - Additional Findings Additional findings: 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
--- NOTE | 2016-10-24 10:30 | CP.PCM.PN ---
Subjective - Date & Time of Evaluation Date of Evaluation: 10/24/16 Time of Evaluation: 10:27 - Subjective Subjective: Patient and bed He feels much better after he had twice dialysis Urine output remained poor Vital sign noted to be acceptable Objective - Vital Signs/Intake and Output Vital Signs (last 24 hours): Temp Pulse Resp BP Pulse Ox 98.2 F 78 20 101/40 L 100 10/24/16 08:00 10/24/16 08:00 10/24/16 08:00 10/24/16 08:00 10/24/16 08:00 Intake and Output: 10/24/16 10/24/16 06:59 18:59 Output Total 250 Balance -250 - Medications Medications: Current Medications Calcium Acetate (Phoslo) 667 mg PO TID [facility] Epoetin Roberto (Procrit) 6,000 unit IV MWF [facility] Last Admin: 10/24/16 08:43 Dose: 6,000 unit Lactulose (Enulose) 10 gm PO TID [facility] Last Admin: 10/24/16 08:42 Dose: 10 gm Lidocaine (Lidoderm) 1 ea TD DAILY PRN PRN Reason: Pain, moderate (4-7) Metolazone (Zaroxolyn) 2.5 mg PO DAILY [facility] Last Admin: 10/24/16 08:44 Dose: Not Given Torsemide (Demadex) 100 mg PO DAILY [facility] Last Admin: 10/24/16 08:44 Dose: Not Given - Labs Labs: 10/21/16 05:15 10/22/16 06:00 PT 22.3 Seconds (9.8-13.1) H 10/21/16 09:05 INR 2.1 (0.9-1.2) H 10/21/16 09:05 APTT 46.0 Seconds (25.6-37.1) H 10/21/16 09:05 - Constitutional Appears: No Acute Distress - ENT Exam ENT Exam: Mucous Membranes Moist - Respiratory Exam Respiratory Exam: NORMAL BREATHING PATTERN. absent: Chest Wall Tenderness - GI/Abdominal Exam GI & Abdominal Exam: Guarding - Extremities Exam Extremities Exam: Calf Tenderness - Back Exam Back Exam: absent: CVA tenderness (L), CVA tenderness (R) - Neurological Exam Neurological Exam: Alert Assessment and Plan (1) Chronic kidney disease, stage III (moderate) Assessment & Plan: Acute kidney injury superimposed on chronic kidney disease requiring dialysis with massive edema and status post paracentesis and removal of 8 L of fluid last week. Last hemodialysis Monday Urine output remained poor BMP and CBC just be repeated Serum phosphorus elevated this started PhosLo 3 times a day And scheduled for hemodialysis today order was given Continue monitoring dialysis time will be 3 hr Potassium bath 2 mEq Bicarbonate bath 34 Status: Chronic (2) Cirrhosis of liver with ascites Status: Chronic
[2016-10-24 11:10] LABS: ALB/GLOB RATIO 0.6 (1.0-2.1); BILIRUBIN,TOTAL 2.3 mg/dl (0.2-1.3); CALCIUM 7.7 mg/dL (8.4-10.2); POTASSIUM 3.8 MMOL/L (3.6-5.0); TOTAL PROTEIN 6.5 G/DL (6.3-8.2)
[2016-10-24] MEDS: Calcium Acetate 667 MG Capsule PO SCH ×2 (13:00→17:56)
--- NOTE | 2016-10-24 20:23 | CP.PCM.PN ---
Subjective - Date & Time of Evaluation Date of Evaluation: 10/24/16 Time of Evaluation: 14:00 - Subjective Subjective: Patient appears tired. Not in any pain. Objective - Vital Signs/Intake and Output Vital Signs (last 24 hours): Temp Pulse Resp BP Pulse Ox 98.5 F 72 20 92/41 L 97 10/24/16 19:10 10/24/16 19:10 10/24/16 19:10 10/24/16 19:10 10/24/16 19:10 - Medications Medications: Current Medications Calcium Acetate (Phoslo) 667 mg PO TID [facility] Last Admin: 10/24/16 17:56 Dose: Not Given Epoetin Roberto (Procrit) 6,000 unit IV MWF [facility] Last Admin: 10/24/16 08:43 Dose: 6,000 unit Lactulose (Enulose) 10 gm PO TID [facility] Last Admin: 10/24/16 17:56 Dose: Not Given Lidocaine (Lidoderm) 1 ea TD DAILY PRN PRN Reason: Pain, moderate (4-7) Metolazone (Zaroxolyn) 2.5 mg PO DAILY [facility] Last Admin: 10/24/16 08:44 Dose: Not Given Torsemide (Demadex) 100 mg PO DAILY [facility] Last Admin: 10/24/16 08:44 Dose: Not Given - Labs Labs: 10/21/16 05:15 10/24/16 10:30 PT 22.3 Seconds (9.8-13.1) H 10/21/16 09:05 INR 2.1 (0.9-1.2) H 10/21/16 09:05 APTT 46.0 Seconds (25.6-37.1) H 10/21/16 09:05 - Head Exam Head Exam: ATRAUMATIC - Eye Exam Pupil Exam: PERRL - ENT Exam ENT Exam: Mucous Membranes Moist - Neck Exam Neck Exam: Full ROM - Respiratory Exam Respiratory Exam: NORMAL BREATHING PATTERN - Cardiovascular Exam Cardiovascular Exam: +S1, +S2 - GI/Abdominal Exam GI & Abdominal Exam: Distended, Firm, Normal Bowel Sounds Assessment and Plan (1) Cirrhosis of liver with ascites Assessment & Plan: On hemodialysis and continues with minimal urine output. Abdomen is more distended today. Short term will need parascentesis. Will discuss TIPS with IR. Status: Chronic
--- NOTE | 2016-10-24 20:25 | CP.PCM.PN ---
Subjective - Date & Time of Evaluation Date of Evaluation: 10/24/16 Time of Evaluation: 22:22 - Subjective Subjective: Dialysis now Paracentesis renetta. Objective - Vital Signs/Intake and Output Vital Signs (last 24 hours): Temp Pulse Resp BP Pulse Ox 98.5 F 72 20 92/41 L 97 10/24/16 19:10 10/24/16 19:10 10/24/16 19:10 10/24/16 19:10 10/24/16 19:10 - Medications Medications: Current Medications Calcium Acetate (Phoslo) 667 mg PO TID [facility] Last Admin: 10/24/16 17:56 Dose: Not Given Epoetin Roberto (Procrit) 6,000 unit IV MWF [facility] Last Admin: 10/24/16 08:43 Dose: 6,000 unit Lactulose (Enulose) 10 gm PO TID [facility] Last Admin: 10/24/16 17:56 Dose: Not Given Lidocaine (Lidoderm) 1 ea TD DAILY PRN PRN Reason: Pain, moderate (4-7) Metolazone (Zaroxolyn) 2.5 mg PO DAILY [facility] Last Admin: 10/24/16 08:44 Dose: Not Given Torsemide (Demadex) 100 mg PO DAILY [facility] Last Admin: 10/24/16 08:44 Dose: Not Given - Labs Labs: 10/21/16 05:15 10/24/16 10:30 PT 22.3 Seconds (9.8-13.1) H 10/21/16 09:05 INR 2.1 (0.9-1.2) H 10/21/16 09:05 APTT 46.0 Seconds (25.6-37.1) H 10/21/16 09:05 - Respiratory Exam Respiratory Exam: NORMAL BREATHING PATTERN - Cardiovascular Exam Cardiovascular Exam: REGULAR RHYTHM - GI/Abdominal Exam GI & Abdominal Exam: Normal Bowel Sounds Assessment and Plan - Assessment and Plan (Free Text) Assessment: Cirrhosis Hepatosplenomegaly Portal HTN ascites etiol?? S/P Hepatic encephalopathy Pancytopenia Low prot/alb Ascites s/p multiple paracentesis Lasix zaroxylyn Lactulose GI ROBB CKD? Hepatorenal? Nephrology Dialysis [facility] Liver transplant? TIPS ? Severe AI Endocarditis?? Cardiology and ID A-fib/ rate controlled Amiodorone INR 2.0 ] Low back pain etiol? Lidocaine
[2016-10-25 07:07] LABS: CALCIUM 7.5 mg/dL (8.4-10.2); POTASSIUM 3.7 MMOL/L (3.6-5.0)
[2016-10-25] MEDS: Calcium Acetate 667 MG Capsule PO SCH ×3 (08:13→17:05)
[2016-10-25] MEDS: metOLazone 2.5 MG TAB PO SCH (08:14)
[2016-10-25] MEDS: Lactulose 10 gm/15 ml Syrup PO SCH ×3 (08:14→17:05)
--- NOTE | 2016-10-25 10:48 | CP.PCM.PN ---
Subjective - Date & Time of Evaluation Date of Evaluation: 10/25/16 Time of Evaluation: 10:46 - Subjective Subjective: Patient is awake and conscious He feels good no shortness of breath at this point appetite improving Patient responded to dialysis very well and he said these feeling much better Infiltration 1500 mL yesterday Objective - Vital Signs/Intake and Output Vital Signs (last 24 hours): Temp Pulse Resp BP Pulse Ox 98 F 79 20 96/60 L 99 10/25/16 08:00 10/25/16 09:00 10/25/16 08:00 10/25/16 08:00 10/25/16 08:00 Intake and Output: 10/25/16 10/25/16 06:59 18:59 Intake Total 200 Output Total 150 Balance 50 - Medications Medications: Current Medications Calcium Acetate (Phoslo) 667 mg PO TID [facility] Last Admin: 10/25/16 08:13 Dose: 667 mg Epoetin Roberto (Procrit) 6,000 unit IV MWF [facility] Last Admin: 10/24/16 08:43 Dose: 6,000 unit Lactulose (Enulose) 10 gm PO TID [facility] Last Admin: 10/25/16 08:14 Dose: 10 gm Lidocaine (Lidoderm) 1 ea TD DAILY PRN PRN Reason: Pain, moderate (4-7) Metolazone (Zaroxolyn) 2.5 mg PO DAILY [facility] Last Admin: 10/25/16 08:14 Dose: 2.5 mg Torsemide (Demadex) 100 mg PO DAILY [facility] Last Admin: 10/25/16 08:14 Dose: 100 mg - Labs Labs: 10/21/16 05:15 10/25/16 06:00 PT 26.1 Seconds (9.8-13.1) H 10/25/16 06:00 INR 2.5 (0.9-1.2) H 10/25/16 06:00 APTT 46.0 Seconds (25.6-37.1) H 10/21/16 09:05 - Constitutional Appears: No Acute Distress - ENT Exam ENT Exam: Mucous Membranes Moist - Respiratory Exam Respiratory Exam: absent: Chest Wall Tenderness - Cardiovascular Exam Cardiovascular Exam: absent: Rubs - GI/Abdominal Exam GI & Abdominal Exam: absent: Guarding - Extremities Exam Extremities Exam: absent: Calf Tenderness - Back Exam Back Exam: absent: CVA tenderness (L), CVA tenderness (R) - Neurological Exam Neurological Exam: Alert Assessment and Plan (1) Chronic kidney disease, stage III (moderate) Assessment & Plan: Chronic kidney disease requiring dialysis at this point with advanced liver cirrhosis and ascites Patient responded to dialysis fairly well we will dialyze tomorrow we will continue to monitor kidney function. His urine output remained very poor 150 mL per 24 hours despite diuretics. Status: Chronic (2) Cirrhosis of liver with ascites Status: Chronic
--- NOTE | 2016-10-25 11:05 | CP.PCM.PN ---
Subjective - Date & Time of Evaluation Date of Evaluation: 10/25/16 Time of Evaluation: 10:00 - Subjective Subjective: NO CHEST PAIN OR SOB FEELS A LITTLE BETTER AFTER HD Objective - Vital Signs/Intake and Output Vital Signs (last 24 hours): Temp Pulse Resp BP Pulse Ox 98 F 79 20 96/60 L 99 10/25/16 08:00 10/25/16 09:00 10/25/16 08:00 10/25/16 08:00 10/25/16 08:00 Intake and Output: 10/25/16 10/25/16 06:59 18:59 Intake Total 200 Output Total 150 Balance 50 - Medications Medications: Current Medications Calcium Acetate (Phoslo) 667 mg PO TID [facility] Last Admin: 10/25/16 08:13 Dose: 667 mg Epoetin Roberto (Procrit) 6,000 unit IV MWF [facility] Last Admin: 10/24/16 08:43 Dose: 6,000 unit Lactulose (Enulose) 10 gm PO TID [facility] Last Admin: 10/25/16 08:14 Dose: 10 gm Lidocaine (Lidoderm) 1 ea TD DAILY PRN PRN Reason: Pain, moderate (4-7) Metolazone (Zaroxolyn) 2.5 mg PO DAILY [facility] Last Admin: 10/25/16 08:14 Dose: 2.5 mg Torsemide (Demadex) 100 mg PO DAILY [facility] Last Admin: 10/25/16 08:14 Dose: 100 mg - Labs Labs: 10/21/16 05:15 10/25/16 06:00 PT 26.1 Seconds (9.8-13.1) H 10/25/16 06:00 INR 2.5 (0.9-1.2) H 10/25/16 06:00 APTT 46.0 Seconds (25.6-37.1) H 10/21/16 09:05 - Respiratory Exam Respiratory Exam: Clear to Ausculation Bilateral - Cardiovascular Exam Cardiovascular Exam: REGULAR RHYTHM, +S1, +S2 - Extremities Exam Additional comments: DECREASE IN LE EDEMA - Additional Findings 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
--- NOTE | 2016-10-25 15:15 | CP.PCM.PCO ---
Assessment/Plan - Assessment/Plan Assessment (Free Text): Called by RN to assess patient who was complaining of generalized aches after FFP transfusion was started. Upon evaluation, pt in no apparent distress, vss. Pt denies cp, sob or any sort of pain/aches. Transfusion of FFP to be resumed, pt made aware to report any further pain/aches, sob or any symptoms he may experience. Pt verbalized understanding, pt's son present at bedside, RN made aware to continue to monitor closely. Pt remains stable. - Problems Patient Problems: Problem List (Active/Current) Problem Status Onset Code Chronic kidney disease, stage III (moderate) Chronic N18.3 Cirrhosis of liver with ascites Chronic K74.60
--- NOTE | 2016-10-25 20:24 | CP.PCM.PN ---
Subjective - Date & Time of Evaluation Date of Evaluation: 10/25/16 Time of Evaluation: 22:22 - Subjective Subjective: Above noted Objective - Vital Signs/Intake and Output Vital Signs (last 24 hours): Temp Pulse Resp BP Pulse Ox 97.4 F L 75 18 105/49 L 99 10/25/16 19:58 10/25/16 19:58 10/25/16 19:58 10/25/16 19:58 10/25/16 19:58 Intake and Output: 10/25/16 10/26/16 18:59 06:59 Intake Total 846 Output Total 100 Balance 746 - Medications Medications: Current Medications Calcium Acetate (Phoslo) 667 mg PO TID [facility] Last Admin: 10/25/16 17:05 Dose: 667 mg Epoetin Roberto (Procrit) 6,000 unit IV MWF [facility] Last Admin: 10/24/16 08:43 Dose: 6,000 unit Lactulose (Enulose) 10 gm PO TID [facility] Last Admin: 10/25/16 17:05 Dose: 10 gm Lidocaine (Lidoderm) 1 ea TD DAILY PRN PRN Reason: Pain, moderate (4-7) Metolazone (Zaroxolyn) 2.5 mg PO DAILY [facility] Last Admin: 10/25/16 08:14 Dose: 2.5 mg Torsemide (Demadex) 100 mg PO DAILY [facility] Last Admin: 10/25/16 08:14 Dose: 100 mg - Labs Labs: 10/21/16 05:15 10/25/16 06:00 PT 26.1 Seconds (9.8-13.1) H 10/25/16 06:00 INR 2.5 (0.9-1.2) H 10/25/16 06:00 APTT 46.0 Seconds (25.6-37.1) H 10/21/16 09:05 - Respiratory Exam Respiratory Exam: NORMAL BREATHING PATTERN - Cardiovascular Exam Cardiovascular Exam: REGULAR RHYTHM - GI/Abdominal Exam GI & Abdominal Exam: Normal Bowel Sounds Assessment and Plan - Assessment and Plan (Free Text) Assessment: Cirrhosis Hepatosplenomegaly Portal HTN ascites etiol?? S/P Hepatic encephalopathy Pancytopenia Low prot/alb Ascites s/p multiple paracentesis Lasix zaroxylyn Lactulose GI ROBB CKD? Hepatorenal? Nephrology Dialysis [facility] Liver transplant? TIPS ? Severe AI Endocarditis?? Cardiology and ID A-fib/ rate controlled Amiodorone INR 2.0 ] Low back pain etiol? Lidocaine
[2016-10-26 06:28] LABS: CALCIUM 7.7 mg/dL (8.4-10.2); POTASSIUM 3.8 MMOL/L (3.6-5.0)
[2016-10-26] MEDS: Calcium Acetate 667 MG Capsule PO SCH ×3 (08:35→17:14)
[2016-10-26] MEDS: Lactulose 10 gm/15 ml Syrup PO SCH ×3 (08:36→17:13)
[2016-10-26] MEDS: metOLazone 2.5 MG TAB PO SCH (08:36)
--- NOTE | 2016-10-26 11:15 | CP.PCM.PN ---
Subjective - Date & Time of Evaluation Date of Evaluation: 10/26/16 Time of Evaluation: 11:13 - Subjective Subjective: He was seen on hemodialysis now Patient is awake and conscious Vital sign noted Ultrafiltration about 1500 mL Dialysis via temporary dialysis catheter Potassium bath 3 mEq Sodium bath 138 Physical exam Still have significant ascites Abdomen distended Extremity no significant edema Impression and plan Patient requesting to stop dialysis and see what happens , therefore we will hold dialysis for the next couple of days a monitor kidney function we will see what happened Patient requesting to be transferred to [facility] for the heart surgery. Objective - Vital Signs/Intake and Output Vital Signs (last 24 hours): Temp Pulse Resp BP Pulse Ox 97.7 F 77 20 100/42 L 97 10/26/16 08:00 10/26/16 08:00 10/26/16 08:00 10/26/16 08:00 10/26/16 08:00 Intake and Output: 10/26/16 10/26/16 06:59 18:59 Intake Total 200 Output Total 150 Balance 50 - Medications Medications: Current Medications Calcium Acetate (Phoslo) 667 mg PO TID [facility] Last Admin: 10/26/16 08:35 Dose: 667 mg Epoetin Roberto (Procrit) 6,000 unit IV MWF [facility] Last Admin: 10/24/16 08:43 Dose: 6,000 unit Lactulose (Enulose) 10 gm PO TID [facility] Last Admin: 10/26/16 08:36 Dose: 10 gm Lidocaine (Lidoderm) 1 ea TD DAILY PRN PRN Reason: Pain, moderate (4-7) Metolazone (Zaroxolyn) 2.5 mg PO DAILY [facility] Last Admin: 10/26/16 08:36 Dose: 2.5 mg Torsemide (Demadex) 100 mg PO DAILY [facility] Last Admin: 10/26/16 08:36 Dose: 100 mg - Labs Labs: 10/21/16 05:15 10/26/16 05:00 PT 21.6 Seconds (9.8-13.1) H 10/26/16 05:00 INR 2.1 (0.9-1.2) H 10/26/16 05:00 APTT 46.0 Seconds (25.6-37.1) H 10/21/16 09:05 Assessment and Plan (1) Chronic kidney disease, stage III (moderate) Status: Chronic (2) Cirrhosis of liver with ascites Status: Chronic
--- NOTE | 2016-10-26 12:12 | CP.PCM.PN ---
Subjective - Date & Time of Evaluation Date of Evaluation: 10/26/16 Time of Evaluation: 11:00 - Subjective Subjective: NO NEW COMPLAINTS Objective - Vital Signs/Intake and Output Vital Signs (last 24 hours): Temp Pulse Resp BP Pulse Ox 97.7 F 77 20 100/42 L 97 10/26/16 08:00 10/26/16 08:00 10/26/16 08:00 10/26/16 08:00 10/26/16 08:00 Intake and Output: 10/26/16 10/26/16 06:59 18:59 Intake Total 200 Output Total 150 Balance 50 - Medications Medications: Current Medications Calcium Acetate (Phoslo) 667 mg PO TID [facility] Last Admin: 10/26/16 08:35 Dose: 667 mg Epoetin Roberto (Procrit) 6,000 unit IV MWF [facility] Last Admin: 10/24/16 08:43 Dose: 6,000 unit Lactulose (Enulose) 10 gm PO TID [facility] Last Admin: 10/26/16 08:36 Dose: 10 gm Lidocaine (Lidoderm) 1 ea TD DAILY PRN PRN Reason: Pain, moderate (4-7) Metolazone (Zaroxolyn) 2.5 mg PO DAILY [facility] Last Admin: 10/26/16 08:36 Dose: 2.5 mg Torsemide (Demadex) 100 mg PO DAILY [facility] Last Admin: 10/26/16 08:36 Dose: 100 mg - Labs Labs: 10/21/16 05:15 10/26/16 05:00 PT 21.6 Seconds (9.8-13.1) H 10/26/16 05:00 INR 2.1 (0.9-1.2) H 10/26/16 05:00 APTT 46.0 Seconds (25.6-37.1) H 10/21/16 09:05 - Respiratory Exam Respiratory Exam: Clear to Ausculation Bilateral - Cardiovascular Exam Cardiovascular Exam: REGULAR RHYTHM, +S1, +S2 - GI/Abdominal Exam GI & Abdominal Exam: Firm Additional comments: ASCITES INCREASING AGAIN - Extremities Exam Additional comments: DECREASE IN LE EDEMA - Additional Findings 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
--- NOTE | 2016-10-26 12:52 | CP.PCM.PN ---
Subjective - Date & Time of Evaluation Date of Evaluation: 10/26/16 Time of Evaluation: 08:00 - Subjective Subjective: patient awaiting cardiac surgery HD on hold all cultures thus far negative remains afebrile denies chest pain cough or sob Objective - Vital Signs/Intake and Output Vital Signs (last 24 hours): Temp Pulse Resp BP Pulse Ox 98 F 79 20 100/46 L 99 10/26/16 12:00 10/26/16 12:00 10/26/16 12:00 10/26/16 12:00 10/26/16 12:00 Intake and Output: 10/26/16 10/26/16 06:59 18:59 Intake Total 200 Output Total 150 Balance 50 - Medications Medications: Current Medications Calcium Acetate (Phoslo) 667 mg PO TID [facility] Last Admin: 10/26/16 08:35 Dose: 667 mg Epoetin Roberto (Procrit) 6,000 unit IV MWF [facility] Last Admin: 10/24/16 08:43 Dose: 6,000 unit Lactulose (Enulose) 10 gm PO TID [facility] Last Admin: 10/26/16 08:36 Dose: 10 gm Lidocaine (Lidoderm) 1 ea TD DAILY PRN PRN Reason: Pain, moderate (4-7) Metolazone (Zaroxolyn) 2.5 mg PO DAILY [facility] Last Admin: 10/26/16 08:36 Dose: 2.5 mg Torsemide (Demadex) 100 mg PO DAILY [facility] Last Admin: 10/26/16 08:36 Dose: 100 mg - Labs Labs: 10/21/16 05:15 10/26/16 05:00 PT 21.6 Seconds (9.8-13.1) H 10/26/16 05:00 INR 2.1 (0.9-1.2) H 10/26/16 05:00 APTT 46.0 Seconds (25.6-37.1) H 10/21/16 09:05 - Constitutional Appears: Non-toxic, Chronically Ill - Head Exam Head Exam: NORMOCEPHALIC - Eye Exam Eye Exam: PERRL - ENT Exam ENT Exam: Mucous Membranes Dry - Neck Exam Neck Exam: absent: Lymphadenopathy - Respiratory Exam Respiratory Exam: Decreased Breath Sounds, Rhonchi - Cardiovascular Exam Cardiovascular Exam: +S1, +S2 - GI/Abdominal Exam GI & Abdominal Exam: Distended, Soft. absent: Tenderness - Rectal Exam Rectal Exam: Deferred - Exam Exam: NORMAL INSPECTION Assessment and Plan (1) Chronic kidney disease, stage III (moderate) Status: Chronic (2) Cirrhosis of liver with ascites Status: Chronic (3) Ascites of liver Status: Acute (4) Leg edema Status: Chronic - Assessment and Plan (Free Text) Assessment: s/p endocarditis rx renal failure cirrhosis overall poor prognosis
[2016-10-26] MEDS: Epoetin Alfa 20000 UNIT/ML Inj IV SCH (13:36)
--- NOTE | 2016-10-26 17:38 | CP.PCM.PN ---
Subjective - Date & Time of Evaluation Date of Evaluation: 10/26/16 Time of Evaluation: 22:22 - Subjective Subjective: Above noted Objective - Vital Signs/Intake and Output Vital Signs (last 24 hours): Temp Pulse Resp BP Pulse Ox 98.4 F 78 20 145/53 L 97 10/26/16 15:54 10/26/16 15:54 10/26/16 15:54 10/26/16 15:54 10/26/16 15:54 Intake and Output: 10/26/16 10/26/16 06:59 18:59 Intake Total 200 Output Total 150 Balance 50 - Medications Medications: Current Medications Calcium Acetate (Phoslo) 667 mg PO TID [facility] Last Admin: 10/26/16 17:14 Dose: 667 mg Epoetin Roberto (Procrit) 6,000 unit IV MWF [facility] Last Admin: 10/26/16 13:36 Dose: 6,000 unit Lactulose (Enulose) 10 gm PO TID [facility] Last Admin: 10/26/16 17:13 Dose: 10 gm Lidocaine (Lidoderm) 1 ea TD DAILY PRN PRN Reason: Pain, moderate (4-7) Metolazone (Zaroxolyn) 2.5 mg PO DAILY [facility] Last Admin: 10/26/16 08:36 Dose: 2.5 mg Torsemide (Demadex) 100 mg PO DAILY [facility] Last Admin: 10/26/16 08:36 Dose: 100 mg - Labs Labs: 10/21/16 05:15 10/26/16 05:00 PT 21.6 Seconds (9.8-13.1) H 10/26/16 05:00 INR 2.1 (0.9-1.2) H 10/26/16 05:00 APTT 46.0 Seconds (25.6-37.1) H 10/21/16 09:05 - Respiratory Exam Respiratory Exam: NORMAL BREATHING PATTERN - Cardiovascular Exam Cardiovascular Exam: REGULAR RHYTHM - GI/Abdominal Exam GI & Abdominal Exam: Normal Bowel Sounds Assessment and Plan - Assessment and Plan (Free Text) Assessment: Cirrhosis Hepatosplenomegaly Portal HTN ascites etiol?? S/P Hepatic encephalopathy Pancytopenia Low prot/alb Ascites s/p multiple paracentesis Lasix zaroxylyn Lactulose GI ROBB CKD? Hepatorenal? Nephrology Dialysis [facility] Liver transplant? TIPS ? Severe AI Endocarditis?? Cardiology and ID A-fib/ rate controlled Amiodorone INR 2.0 ] Low back pain etiol? Lidocaine
--- NOTE | 2016-10-26 17:59 | CP.PCM.PN ---
Subjective - Date & Time of Evaluation Date of Evaluation: 10/26/16 Time of Evaluation: 17:57 - Subjective Subjective: Patient apppears comfortable and alert with good apetite Objective - Vital Signs/Intake and Output Vital Signs (last 24 hours): Temp Pulse Resp BP Pulse Ox 98.4 F 78 20 145/53 L 97 10/26/16 15:54 10/26/16 15:54 10/26/16 15:54 10/26/16 15:54 10/26/16 15:54 Intake and Output: 10/26/16 10/26/16 06:59 18:59 Intake Total 200 Output Total 150 Balance 50 - Medications Medications: Current Medications Calcium Acetate (Phoslo) 667 mg PO TID [facility] Last Admin: 10/26/16 17:14 Dose: 667 mg Epoetin Roberto (Procrit) 6,000 unit IV MWF [facility] Last Admin: 10/26/16 13:36 Dose: 6,000 unit Lactulose (Enulose) 10 gm PO TID [facility] Last Admin: 10/26/16 17:13 Dose: 10 gm Lidocaine (Lidoderm) 1 ea TD DAILY PRN PRN Reason: Pain, moderate (4-7) Metolazone (Zaroxolyn) 2.5 mg PO DAILY [facility] Last Admin: 10/26/16 08:36 Dose: 2.5 mg Torsemide (Demadex) 100 mg PO DAILY [facility] Last Admin: 10/26/16 08:36 Dose: 100 mg - Labs Labs: 10/21/16 05:15 10/26/16 05:00 PT 21.6 Seconds (9.8-13.1) H 10/26/16 05:00 INR 2.1 (0.9-1.2) H 10/26/16 05:00 APTT 46.0 Seconds (25.6-37.1) H 10/21/16 09:05 - Head Exam Head Exam: ATRAUMATIC - Eye Exam Eye Exam: PERRL Pupil Exam: PERRL - ENT Exam ENT Exam: Mucous Membranes Moist - Respiratory Exam Respiratory Exam: Clear to Ausculation Bilateral - Cardiovascular Exam Cardiovascular Exam: +S1, +S2 - GI/Abdominal Exam GI & Abdominal Exam: Distended, Firm Assessment and Plan (1) Cirrhosis of liver with ascites Assessment & Plan: Clinically much better since starting hemodislysis. Cardiology w/u for AI. No evidence of active endocarditis. For parascentesis tomorrow. Status: Chronic
[2016-10-27 05:17] LABS: HEMATOCRIT 24.3 % (35.0-51.0); MEAN CORPUSCULAR HEMOGLOBIN 35.4 pg (27.0-31.0); MEAN CORPUSCULAR HGB CONC 33.7 g/dL (33.0-37.0); RED CELL DISTRIBUTION WIDTH 15.9 % (11.5-14.5); WHITE BLOOD COUNT 9.6 K/uL (4.8-10.8)
[2016-10-27 05:25] LABS: CALCIUM 7.8 mg/dL (8.4-10.2); POTASSIUM 3.9 MMOL/L (3.6-5.0)
[2016-10-27] MEDS: metOLazone 2.5 MG TAB PO SCH (08:42)
[2016-10-27] MEDS: Lactulose 10 gm/15 ml Syrup PO SCH ×3 (08:43→17:01)
[2016-10-27] MEDS: Calcium Acetate 667 MG Capsule PO SCH (08:44)
--- NOTE | 2016-10-27 09:50 | CP.PCM.PN ---
Subjective - Date & Time of Evaluation Date of Evaluation: 10/27/16 Time of Evaluation: 09:48 - Subjective Subjective: Patient appeared to be comfortable Vital signs stable Appetite coming back Urine output remained very poor about 150 mL in 24 hours Physical exam Chest no significant rales Abdomen distended with ascites Extremity no significant edema Impression and plan Advanced liver cirrhosis with ascites Acute kidney injury superimposed on chronic kidney disease requiring dialysis however the patient requesting to stop dialysis and we will see what happens in the next couple of days, and meantime we will start to do 24 hours urine for creatinine clearance and protein And keep monitoring Objective - Vital Signs/Intake and Output Vital Signs (last 24 hours): Temp Pulse Resp BP Pulse Ox 98.4 F 80 18 104/40 L 99 10/27/16 08:00 10/27/16 08:00 10/27/16 08:00 10/27/16 08:00 10/27/16 08:00 Intake and Output: 10/27/16 10/27/16 06:59 18:59 Intake Total 600 Output Total 120 Balance 480 - Medications Medications: Current Medications Calcium Acetate (Phoslo) 667 mg PO TID [facility] Last Admin: 10/27/16 08:44 Dose: 667 mg Epoetin Roberto (Procrit) 6,000 unit IV MWF [facility] Last Admin: 10/26/16 13:36 Dose: 6,000 unit Lactulose (Enulose) 10 gm PO TID [facility] Last Admin: 10/27/16 08:43 Dose: 10 gm Lidocaine (Lidoderm) 1 ea TD DAILY PRN PRN Reason: Pain, moderate (4-7) Metolazone (Zaroxolyn) 2.5 mg PO DAILY [facility] Last Admin: 10/27/16 08:42 Dose: 2.5 mg Torsemide (Demadex) 100 mg PO DAILY [facility] Last Admin: 10/27/16 08:40 Dose: 100 mg - Labs Labs: 10/27/16 04:40 10/27/16 04:40 PT 23.0 Seconds (9.8-13.1) H 10/27/16 04:40 INR 2.2 (0.9-1.2) H 10/27/16 04:40 APTT 46.0 Seconds (25.6-37.1) H 10/21/16 09:05 Assessment and Plan (1) Chronic kidney disease, stage III (moderate) Status: Chronic (2) Cirrhosis of liver with ascites Status: Chronic
--- NOTE | 2016-10-27 10:45 | CP.PCM.PN ---
Subjective - Date & Time of Evaluation Date of Evaluation: 10/27/16 Time of Evaluation: 10:42 - Subjective Subjective: Patient changed his mind and apologizing to me because he has refused dialysis . Now he told me that he is agreeable for dialysis and he wanted to continue for it because they make him feel much better. To call dialysis and resume hemodialysis for tomorrow as scheduled.. Objective - Vital Signs/Intake and Output Vital Signs (last 24 hours): Temp Pulse Resp BP Pulse Ox 98.4 F 80 18 104/40 L 99 10/27/16 08:00 10/27/16 08:00 10/27/16 08:00 10/27/16 08:00 10/27/16 08:00 Intake and Output: 10/27/16 10/27/16 06:59 18:59 Intake Total 600 Output Total 120 Balance 480 - Medications Medications: Current Medications Calcium Acetate (Phoslo) 667 mg PO TID [facility] Last Admin: 10/27/16 08:44 Dose: 667 mg Epoetin Roberto (Procrit) 6,000 unit IV MWF [facility] Last Admin: 10/26/16 13:36 Dose: 6,000 unit Lactulose (Enulose) 10 gm PO TID [facility] Last Admin: 10/27/16 08:43 Dose: 10 gm Lidocaine (Lidoderm) 1 ea TD DAILY PRN PRN Reason: Pain, moderate (4-7) Metolazone (Zaroxolyn) 2.5 mg PO DAILY [facility] Last Admin: 10/27/16 08:42 Dose: 2.5 mg Torsemide (Demadex) 100 mg PO DAILY [facility] Last Admin: 10/27/16 08:40 Dose: 100 mg - Labs Labs: 10/27/16 04:40 10/27/16 04:40 PT 23.0 Seconds (9.8-13.1) H 10/27/16 04:40 INR 2.2 (0.9-1.2) H 10/27/16 04:40 APTT 46.0 Seconds (25.6-37.1) H 10/21/16 09:05 Assessment and Plan (1) Chronic kidney disease, stage III (moderate) Status: Chronic (2) Cirrhosis of liver with ascites Status: Chronic
--- NOTE | 2016-10-27 11:41 | CP.PCM.PN ---
Subjective - Date & Time of Evaluation Date of Evaluation: 10/27/16 Time of Evaluation: 09:00 - Subjective Subjective: NO CHEST PAIN OR SOB Objective - Vital Signs/Intake and Output Vital Signs (last 24 hours): Temp Pulse Resp BP Pulse Ox 98.4 F 80 18 104/40 L 99 10/27/16 08:00 10/27/16 08:00 10/27/16 08:00 10/27/16 08:00 10/27/16 08:00 Intake and Output: 10/27/16 10/27/16 06:59 18:59 Intake Total 600 Output Total 120 Balance 480 - Medications Medications: Current Medications Calcium Acetate (Phoslo) 667 mg PO TID [facility] Last Admin: 10/27/16 08:44 Dose: 667 mg Epoetin Roberto (Procrit) 6,000 unit IV MWF [facility] Last Admin: 10/26/16 13:36 Dose: 6,000 unit Lactulose (Enulose) 10 gm PO TID [facility] Last Admin: 10/27/16 08:43 Dose: 10 gm Lidocaine (Lidoderm) 1 ea TD DAILY PRN PRN Reason: Pain, moderate (4-7) Metolazone (Zaroxolyn) 2.5 mg PO DAILY [facility] Last Admin: 10/27/16 08:42 Dose: 2.5 mg Torsemide (Demadex) 100 mg PO DAILY [facility] Last Admin: 10/27/16 08:40 Dose: 100 mg - Labs Labs: 10/27/16 04:40 10/27/16 04:40 PT 23.0 Seconds (9.8-13.1) H 10/27/16 04:40 INR 2.2 (0.9-1.2) H 10/27/16 04:40 APTT 46.0 Seconds (25.6-37.1) H 10/21/16 09:05 - Respiratory Exam Respiratory Exam: Clear to Ausculation Bilateral - Cardiovascular Exam Cardiovascular Exam: REGULAR RHYTHM, +S1, +S2 - Additional Findings Additional 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
[2016-10-27] MEDS ORDERED: Lidocaine 1% Inj (20ml) ONE (15:06)
--- NOTE | 2016-10-27 20:07 | CP.PCM.PN ---
Subjective - Date & Time of Evaluation Date of Evaluation: 10/27/16 Time of Evaluation: 22:22 - Subjective Subjective: Above noted Objective - Vital Signs/Intake and Output Vital Signs (last 24 hours): Temp Pulse Resp BP Pulse Ox 97.8 F 82 20 106/55 L 98 10/27/16 19:47 10/27/16 19:47 10/27/16 19:47 10/27/16 19:47 10/27/16 19:47 Intake and Output: 10/27/16 10/28/16 18:59 06:59 Intake Total 734 Output Total 310 Balance 424 - Medications Medications: Current Medications Calcium Acetate (Phoslo) 667 mg PO TID [facility] Last Admin: 10/27/16 17:01 Dose: 667 mg Epoetin Roberto (Procrit) 6,000 unit IV MWF [facility] Last Admin: 10/26/16 13:36 Dose: 6,000 unit Lactulose (Enulose) 10 gm PO TID [facility] Last Admin: 10/27/16 17:01 Dose: 10 gm Lidocaine (Lidoderm) 1 ea TD DAILY PRN PRN Reason: Pain, moderate (4-7) Metolazone (Zaroxolyn) 2.5 mg PO DAILY [facility] Last Admin: 10/27/16 08:42 Dose: 2.5 mg Torsemide (Demadex) 100 mg PO DAILY [facility] Last Admin: 10/27/16 08:40 Dose: 100 mg - Labs Labs: 10/27/16 04:40 10/27/16 04:40 PT 23.0 Seconds (9.8-13.1) H 10/27/16 04:40 INR 2.2 (0.9-1.2) H 10/27/16 04:40 APTT 46.0 Seconds (25.6-37.1) H 10/21/16 09:05 - Respiratory Exam Respiratory Exam: NORMAL BREATHING PATTERN - Cardiovascular Exam Cardiovascular Exam: REGULAR RHYTHM - GI/Abdominal Exam GI & Abdominal Exam: Normal Bowel Sounds Assessment and Plan - Assessment and Plan (Free Text) Assessment: Cirrhosis Hepatosplenomegaly Portal HTN ascites etiol?? S/P Hepatic encephalopathy Pancytopenia Low prot/alb Ascites s/p multiple paracentesis Lasix zaroxylyn Lactulose GI ROBB CKD? Hepatorenal? Nephrology Dialysis [facility] Liver transplant? TIPS ? Severe AI Endocarditis?? Cardiology and ID A-fib/ rate controlled Amiodorone INR 2.0 ] Low back pain etiol? Lidocaine
--- NOTE | 2016-10-27 22:37 | CP.PCM.PN ---
Subjective - Date & Time of Evaluation Date of Evaluation: 10/27/16 Time of Evaluation: 13:00 - Subjective Subjective: Patient without complaint. Continuing with hemodialysis. Objective - Vital Signs/Intake and Output Vital Signs (last 24 hours): Temp Pulse Resp BP Pulse Ox 97.8 F 82 20 106/55 L 98 10/27/16 19:47 10/27/16 19:47 10/27/16 19:47 10/27/16 19:47 10/27/16 19:47 Intake and Output: 10/27/16 10/28/16 18:59 06:59 Intake Total 734 Output Total 310 Balance 424 - Medications Medications: Current Medications Calcium Acetate (Phoslo) 667 mg PO TID [facility] Last Admin: 10/27/16 17:01 Dose: 667 mg Epoetin Roberto (Procrit) 6,000 unit IV MWF [facility] Last Admin: 10/26/16 13:36 Dose: 6,000 unit Lactulose (Enulose) 10 gm PO TID [facility] Last Admin: 10/27/16 17:01 Dose: 10 gm Lidocaine (Lidoderm) 1 ea TD DAILY PRN PRN Reason: Pain, moderate (4-7) Metolazone (Zaroxolyn) 2.5 mg PO DAILY [facility] Last Admin: 10/27/16 08:42 Dose: 2.5 mg Torsemide (Demadex) 100 mg PO DAILY [facility] Last Admin: 10/27/16 08:40 Dose: 100 mg - Labs Labs: 10/27/16 04:40 10/27/16 04:40 PT 23.0 Seconds (9.8-13.1) H 10/27/16 04:40 INR 2.2 (0.9-1.2) H 10/27/16 04:40 APTT 46.0 Seconds (25.6-37.1) H 10/21/16 09:05 - Head Exam Head Exam: ATRAUMATIC - Eye Exam Eye Exam: Normal appearance - ENT Exam ENT Exam: Normal Exam - Respiratory Exam Respiratory Exam: Clear to Ausculation Bilateral - Cardiovascular Exam Cardiovascular Exam: +S1, +S2 - GI/Abdominal Exam GI & Abdominal Exam: Distended, Normal Bowel Sounds Assessment and Plan (1) Cirrhosis of liver with ascites Assessment & Plan: Patient doing better with hemodialysis. Having parascentesis today. Possible TAVR at [facility] next week. Continue current management. F/u [facility] liver center. Status: Chronic
[2016-10-28] MEDS: Lactulose 10 gm/15 ml Syrup PO SCH ×3 (09:05→18:04)
[2016-10-28] MEDS: metOLazone 2.5 MG TAB PO SCH (09:08)
--- NOTE | 2016-10-28 11:18 | CP.PCM.PN ---
Subjective - Date & Time of Evaluation Date of Evaluation: 10/28/16 Time of Evaluation: 09:30 - Subjective Subjective: FEELS GOOD NO NEW COMPLAINTS Objective - Vital Signs/Intake and Output Vital Signs (last 24 hours): Temp Pulse Resp BP Pulse Ox 97.9 F 76 20 97/39 L 97 10/28/16 08:47 10/28/16 10:38 10/28/16 08:47 10/28/16 08:47 10/28/16 10:38 Intake and Output: 10/28/16 10/28/16 06:59 18:59 Intake Total 854 Output Total 510 Balance 344 - Medications Medications: Current Medications Calcium Acetate (Phoslo) 667 mg PO TID [facility] Last Admin: 10/28/16 09:05 Dose: 667 mg Epoetin Roberto (Procrit) 6,000 unit IV MWF [facility] Last Admin: 10/26/16 13:36 Dose: 6,000 unit Lactulose (Enulose) 10 gm PO TID [facility] Last Admin: 10/28/16 09:05 Dose: 10 gm Lidocaine (Lidoderm) 1 ea TD DAILY PRN PRN Reason: Pain, moderate (4-7) Metolazone (Zaroxolyn) 2.5 mg PO DAILY [facility] Last Admin: 10/28/16 09:08 Dose: Not Given Torsemide (Demadex) 100 mg PO DAILY [facility] Last Admin: 10/28/16 09:05 Dose: Not Given - Labs Labs: 10/27/16 04:40 10/27/16 04:40 PT 23.0 Seconds (9.8-13.1) H 10/27/16 04:40 INR 2.2 (0.9-1.2) H 10/27/16 04:40 APTT 46.0 Seconds (25.6-37.1) H 10/21/16 09:05 - Respiratory Exam Respiratory Exam: Clear to Ausculation Bilateral - Cardiovascular Exam Cardiovascular Exam: REGULAR RHYTHM, +S1, +S2 - Extremities Exam Additional comments: MILD LE EDEMA - 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
--- NOTE | 2016-10-28 12:22 | CP.PCM.PN ---
Subjective - Date & Time of Evaluation Date of Evaluation: 10/28/16 Time of Evaluation: 08:00 - Subjective Subjective: denies fever chills cough or sob alert and oriented Objective - Vital Signs/Intake and Output Vital Signs (last 24 hours): Temp Pulse Resp BP Pulse Ox 97.9 F 76 20 97/39 L 97 10/28/16 08:47 10/28/16 10:38 10/28/16 08:47 10/28/16 08:47 10/28/16 10:38 Intake and Output: 10/28/16 10/28/16 06:59 18:59 Intake Total 854 Output Total 510 Balance 344 - Medications Medications: Current Medications Calcium Acetate (Phoslo) 667 mg PO TID [facility] Last Admin: 10/28/16 09:05 Dose: 667 mg Epoetin Roberto (Procrit) 6,000 unit IV MWF [facility] Last Admin: 10/26/16 13:36 Dose: 6,000 unit Lactulose (Enulose) 10 gm PO TID [facility] Last Admin: 10/28/16 09:05 Dose: 10 gm Lidocaine (Lidoderm) 1 ea TD DAILY PRN PRN Reason: Pain, moderate (4-7) Metolazone (Zaroxolyn) 2.5 mg PO DAILY [facility] Last Admin: 10/28/16 09:08 Dose: Not Given Torsemide (Demadex) 100 mg PO DAILY [facility] Last Admin: 10/28/16 09:05 Dose: Not Given - Labs Labs: 10/27/16 04:40 10/27/16 04:40 PT 23.0 Seconds (9.8-13.1) H 10/27/16 04:40 INR 2.2 (0.9-1.2) H 10/27/16 04:40 APTT 46.0 Seconds (25.6-37.1) H 10/21/16 09:05 - Constitutional Appears: Non-toxic, Cachectic, Chronically Ill - Head Exam Head Exam: NORMOCEPHALIC - Eye Exam Eye Exam: PERRL. absent: Scleral icterus - ENT Exam ENT Exam: Mucous Membranes Dry - Neck Exam Neck Exam: absent: Lymphadenopathy - Respiratory Exam Respiratory Exam: Decreased Breath Sounds - Cardiovascular Exam Cardiovascular Exam: REGULAR RHYTHM, +S1, +S2 - GI/Abdominal Exam GI & Abdominal Exam: Distended, Soft Additional comments: + ascites non tender - Rectal Exam Rectal Exam: Deferred - Exam Exam: NORMAL INSPECTION - Extremities Exam Extremities Exam: Pedal Edema. absent: Calf Tenderness, Tenderness - Back Exam Back Exam: absent: CVA tenderness (L), CVA tenderness (R) - Neurological Exam Neurological Exam: Alert, Awake, Oriented x3 - Psychiatric Exam Psychiatric exam: Normal Mood - Skin Skin Exam: Dry Assessment and Plan (1) Chronic kidney disease, stage III (moderate) Status: Chronic (2) Cirrhosis of liver with ascites Status: Chronic (3) Ascites of liver Status: Acute (4) Leg edema Status: Chronic - Assessment and Plan (Free Text) Assessment: severe AR for possible TAVR next week [facility]
--- NOTE | 2016-10-28 13:49 | CP.PCM.PN ---
Subjective - Date & Time of Evaluation Date of Evaluation: 10/28/16 Time of Evaluation: 13:46 - Subjective Subjective: Patient is awake in bed He feels much better receiving dialysis now and tolerating No SMA-7 done as of yet for today Patient said he has a good appetite 24 hours urine collection and Eli for creatinine clearance and protein He urine output about 300 mL last 24 hours only despite the diuretics Physical exam Awake consciousness Chest no significant problems Abdomen significant ascites Leg 1+ edema Impression and plan Again acute renal failure superimposed on chronic kidney disease stage III Advanced liver cirrhosis Seen in hemodialysis aortic insufficiency Patient may be going to [facility] next week for cardiac procedures. Waiting for 24 hours urine for creatinine clearance to determine the need for dialysis. Hemodialysis started now IV discussed the case with the dialysis nurse To give albumin 25% 50 mL if blood pressure to come down. Monitor electrolyte and repeat BNP predialysis Objective - Vital Signs/Intake and Output Vital Signs (last 24 hours): Temp Pulse Resp BP Pulse Ox 97.8 F 79 20 110/47 L 97 10/28/16 12:36 10/28/16 12:36 10/28/16 12:36 10/28/16 12:36 10/28/16 12:36 Intake and Output: 10/28/16 10/28/16 06:59 18:59 Intake Total 854 Output Total 510 Balance 344 - Medications Medications: Current Medications Calcium Acetate (Phoslo) 667 mg PO TID [facility] Last Admin: 10/28/16 13:26 Dose: 667 mg Epoetin Roberto (Procrit) 6,000 unit IV MWF [facility] Last Admin: 10/26/16 13:36 Dose: 6,000 unit Lactulose (Enulose) 10 gm PO TID [facility] Last Admin: 10/28/16 13:26 Dose: 10 gm Lidocaine (Lidoderm) 1 ea TD DAILY PRN PRN Reason: Pain, moderate (4-7) Metolazone (Zaroxolyn) 2.5 mg PO DAILY [facility] Last Admin: 10/28/16 09:08 Dose: Not Given Torsemide (Demadex) 100 mg PO DAILY [facility] Last Admin: 10/28/16 09:05 Dose: Not Given - Labs Labs: 10/27/16 04:40 10/27/16 04:40 PT 22.4 Seconds (9.8-13.1) H 10/28/16 12:15 INR 2.1 (0.9-1.2) H 10/28/16 12:15 APTT 46.0 Seconds (25.6-37.1) H 10/21/16 09:05 - Constitutional Appears: No Acute Distress - ENT Exam ENT Exam: Mucous Membranes Moist - Respiratory Exam Respiratory Exam: Rhonchi - Cardiovascular Exam Cardiovascular Exam: absent: JVD, Rubs - GI/Abdominal Exam GI & Abdominal Exam: Guarding - Extremities Exam Extremities Exam: absent: Calf Tenderness - Back Exam Back Exam: absent: CVA tenderness (L), CVA tenderness (R) - Neurological Exam Neurological Exam: Alert Assessment and Plan (1) Chronic kidney disease, stage III (moderate) Status: Chronic (2) Cirrhosis of liver with ascites Status: Chronic
[2016-10-28] MEDS: Epoetin Alfa 20000 UNIT/ML Inj IV SCH (16:57)
--- NOTE | 2016-10-28 19:06 | CP.PCM.PN ---
Subjective - Date & Time of Evaluation Date of Evaluation: 10/28/16 Time of Evaluation: 22:22 - Subjective Subjective: Dialysis today Objective - Vital Signs/Intake and Output Vital Signs (last 24 hours): Temp Pulse Resp BP Pulse Ox 98 F 84 20 142/48 L 96 10/28/16 15:57 10/28/16 15:57 10/28/16 15:57 10/28/16 15:57 10/28/16 15:57 - Medications Medications: Current Medications Calcium Acetate (Phoslo) 667 mg PO TID [facility] Last Admin: 10/28/16 18:00 Dose: 667 mg Epoetin Roberto (Procrit) 6,000 unit IV MWF [facility] Last Admin: 10/28/16 16:57 Dose: 6,000 unit Lactulose (Enulose) 10 gm PO TID [facility] Last Admin: 10/28/16 18:04 Dose: 10 gm Lidocaine (Lidoderm) 1 ea TD DAILY PRN PRN Reason: Pain, moderate (4-7) Metolazone (Zaroxolyn) 2.5 mg PO DAILY [facility] Last Admin: 10/28/16 09:08 Dose: Not Given Torsemide (Demadex) 100 mg PO DAILY [facility] Last Admin: 10/28/16 09:05 Dose: Not Given - Labs Labs: 10/27/16 04:40 10/28/16 13:00 PT 22.4 Seconds (9.8-13.1) H 10/28/16 12:15 INR 2.1 (0.9-1.2) H 10/28/16 12:15 APTT 46.0 Seconds (25.6-37.1) H 10/21/16 09:05 - Respiratory Exam Respiratory Exam: NORMAL BREATHING PATTERN - Cardiovascular Exam Cardiovascular Exam: REGULAR RHYTHM - GI/Abdominal Exam GI & Abdominal Exam: Normal Bowel Sounds Assessment and Plan - Assessment and Plan (Free Text) Assessment: Cirrhosis Hepatosplenomegaly Portal HTN ascites etiol?? S/P Hepatic encephalopathy Pancytopenia Low prot/alb Ascites s/p multiple paracentesis Lasix zaroxylyn Lactulose GI ROBB CKD? Hepatorenal? Nephrology Dialysis [facility] Liver transplant? TIPS ? Severe AI Endocarditis?? Cardiology and ID A-fib/ rate controlled Amiodorone INR 2.0 ] Low back pain etiol? Lidocaine
[2016-10-29 07:44] LABS: BILIRUBIN,TOTAL 2.4 mg/dl (0.2-1.3); CALCIUM 7.9 mg/dL (8.4-10.2); POTASSIUM 3.9 MMOL/L (3.6-5.0); TOTAL PROTEIN 6.5 G/DL (6.3-8.2)
[2016-10-29 07:53] LABS: ALB/GLOB RATIO 0.5 (1.0-2.1)
[2016-10-29 07:54] LABS: HEMATOCRIT 25.5 % (35.0-51.0); MEAN CELL VOLUME 105.7 fl (80.0-94.0); MEAN CORPUSCULAR HEMOGLOBIN 35.1 pg (27.0-31.0); MEAN CORPUSCULAR HGB CONC 33.2 g/dL (33.0-37.0); RED CELL DISTRIBUTION WIDTH 16.1 % (11.5-14.5); WHITE BLOOD COUNT 9.3 K/uL (4.8-10.8)
[2016-10-29] MEDS: metOLazone 2.5 MG TAB PO SCH (09:11)
[2016-10-29] MEDS: Lactulose 10 gm/15 ml Syrup PO SCH ×3 (09:11→17:40)
--- NOTE | 2016-10-29 12:10 | CP.PCM.PN ---
Subjective - Date & Time of Evaluation Date of Evaluation: 10/29/16 Time of Evaluation: 10:30 - Subjective Subjective: NO NEW COMPLAINTS Objective - Vital Signs/Intake and Output Vital Signs (last 24 hours): Temp Pulse Resp BP Pulse Ox 97.5 F L 80 19 101/43 L 97 10/29/16 08:31 10/29/16 08:31 10/29/16 08:31 10/29/16 08:31 10/29/16 08:31 Intake and Output: 10/29/16 10/29/16 06:59 18:59 Intake Total 240 Output Total 350 Balance -110 - Medications Medications: Current Medications Calcium Acetate (Phoslo) 667 mg PO TID [facility] Last Admin: 10/29/16 09:11 Dose: 667 mg Epoetin Roberto (Procrit) 6,000 unit IV MWF [facility] Last Admin: 10/28/16 16:57 Dose: 6,000 unit Lactulose (Enulose) 10 gm PO TID [facility] Last Admin: 10/29/16 09:11 Dose: 10 gm Lidocaine (Lidoderm) 1 ea TD DAILY PRN PRN Reason: Pain, moderate (4-7) Metolazone (Zaroxolyn) 2.5 mg PO DAILY [facility] Last Admin: 10/29/16 09:11 Dose: 2.5 mg Torsemide (Demadex) 100 mg PO DAILY [facility] Last Admin: 10/29/16 09:10 Dose: 100 mg - Labs Labs: 10/29/16 06:00 10/29/16 06:00 PT 22.4 Seconds (9.8-13.1) H 10/28/16 12:15 INR 2.1 (0.9-1.2) H 10/28/16 12:15 APTT 46.0 Seconds (25.6-37.1) H 10/21/16 09:05 - Respiratory Exam Respiratory Exam: Clear to Ausculation Bilateral - Cardiovascular Exam Cardiovascular Exam: REGULAR RHYTHM, +S1, +S2 - Extremities Exam Additional comments: MILD LE EDEMA - 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
--- NOTE | 2016-10-29 18:04 | CP.PCM.PN ---
Subjective - Date & Time of Evaluation Date of Evaluation: 10/29/16 Time of Evaluation: 18:00 - Subjective Subjective: Follow up Nephrology Consultation Note Assessment: Stable Acute Kidney Injury (N17.9) possibly due to hepato-renal syndrome now dialysis dependent Hypertensive Chronic Kidney Disease (I12.9) Chronic Kidney Disease (N18.3) Stage 3 with ?mg proteinuria (baseline cr 1.7-2.0 ) Anemia (D64.9), Hyperphosphatemia (E83.39), Secondary Hyperparathyroidism (E21.1 ), HTN (I12.9). thrombocytopenia severe AI Cirrhosis Plan No acute need for renal replacement therapy today. had HD monday Hypertension control with meds as ordered. Patient not on ACEI/ARB due to ROBB Monitor Input/Output, daily weights and renal function with basic metabolic panel continue with epogen with HD pt also on phoslo for elevated phos Dose meds/antibiotics for reduced GFR. Avoid fleets enema/magnesium based laxatives. Avoid nephrotoxins/NSAIDs/ iodinated contrast (unless needed emergently) Glycemic control Further work up for as per primary team Thanks for allowing me to participate in care of your patient. Will follow patient with you. Please call if any Qs Dr Dann Hinojosa Office: [phone] Subjective: Noted events overnight. Patients feels okay. Denies chest pain, palpitation, shortness of breath, has leg swelling. No urinary complaints except not much amount Physical Examination: General Appearance: Comfortable, in no acute respiratory distress, co- operative. Vitals reviewed and noted as below Lungs: Normal respiratory rate/effort. Breath sounds bilateral equal and clear except few basal crackle Heart: Normal rate. s1s2 normal. No rub or gallop. Extremities: 1-2+ edema. Neurological: Patient is alert, awake and oriented to person, place and time. No focal deficit. Strength bilateral appropriate and equal Skin: Warm and dry. Normal turgor. No rash. Palpitation: Normal elasticity for age Abdomen: Abdomen is soft. Bowel sounds +. There is no abdominal tenderness, no guarding/rigidity or organomegaly. has ascites : kidney or bladder not palpable Access: Rt permacath Labs/imaging reviewed. Past medical history, past surgical history, family history, social history, allergy reviewed Work up 24 hr CrCl 11 Echo: severe AI Renal sono unremarkable PTH 106 Objective - Vital Signs/Intake and Output Vital Signs (last 24 hours): Temp Pulse Resp BP Pulse Ox 97.8 F 79 18 103/46 L 96 10/29/16 16:08 10/29/16 16:08 10/29/16 16:08 10/29/16 16:08 10/29/16 16:08 Intake and Output: 10/29/16 10/29/16 06:59 18:59 Intake Total 240 Output Total 350 Balance -110 - Medications Medications: Current Medications Calcium Acetate (Phoslo) 667 mg PO TID [facility] Last Admin: 10/29/16 17:39 Dose: 667 mg Epoetin Roberto (Procrit) 6,000 unit IV MWF [facility] Last Admin: 10/28/16 16:57 Dose: 6,000 unit Lactulose (Enulose) 10 gm PO TID [facility] Last Admin: 10/29/16 17:40 Dose: 10 gm Lidocaine (Lidoderm) 1 ea TD DAILY PRN PRN Reason: Pain, moderate (4-7) Metolazone (Zaroxolyn) 2.5 mg PO DAILY [facility] Last Admin: 10/29/16 09:11 Dose: 2.5 mg Torsemide (Demadex) 100 mg PO DAILY [facility] Last Admin: 10/29/16 09:10 Dose: 100 mg Vitamin B Complex/Vit C/Folic Acid (Nephro-Juan) 1 tab PO DAILY [facility] - Labs Labs: 10/29/16 06:00 10/29/16 06:00 PT 22.4 Seconds (9.8-13.1) H 10/28/16 12:15 INR 2.1 (0.9-1.2) H 10/28/16 12:15 APTT 46.0 Seconds (25.6-37.1) H 10/21/16 09:05
--- NOTE | 2016-10-29 20:34 | CP.PCM.PN ---
Subjective - Date & Time of Evaluation Date of Evaluation: 10/29/16 Time of Evaluation: 22:22 - Subjective Subjective: Creat 2.5 Objective - Vital Signs/Intake and Output Vital Signs (last 24 hours): Temp Pulse Resp BP Pulse Ox 97.4 F L 77 20 104/52 L 97 10/29/16 19:18 10/29/16 19:18 10/29/16 19:18 10/29/16 19:18 10/29/16 19:18 Intake and Output: 10/29/16 10/30/16 18:59 06:59 Intake Total 800 Output Total 200 Balance 600 - Medications Medications: Current Medications Calcium Acetate (Phoslo) 667 mg PO TID [facility] Last Admin: 10/29/16 17:39 Dose: 667 mg Epoetin Roberto (Procrit) 6,000 unit IV MWF [facility] Last Admin: 10/28/16 16:57 Dose: 6,000 unit Lactulose (Enulose) 10 gm PO TID [facility] Last Admin: 10/29/16 17:40 Dose: 10 gm Lidocaine (Lidoderm) 1 ea TD DAILY PRN PRN Reason: Pain, moderate (4-7) Metolazone (Zaroxolyn) 2.5 mg PO DAILY [facility] Last Admin: 10/29/16 09:11 Dose: 2.5 mg Torsemide (Demadex) 100 mg PO DAILY [facility] Last Admin: 10/29/16 09:10 Dose: 100 mg Vitamin B Complex/Vit C/Folic Acid (Nephro-Juan) 1 tab PO DAILY [facility] - Labs Labs: 10/29/16 06:00 10/29/16 06:00 PT 22.4 Seconds (9.8-13.1) H 10/28/16 12:15 INR 2.1 (0.9-1.2) H 10/28/16 12:15 APTT 46.0 Seconds (25.6-37.1) H 10/21/16 09:05 - Respiratory Exam Respiratory Exam: NORMAL BREATHING PATTERN - Cardiovascular Exam Cardiovascular Exam: REGULAR RHYTHM - GI/Abdominal Exam GI & Abdominal Exam: Normal Bowel Sounds Assessment and Plan - Assessment and Plan (Free Text) Assessment: Cirrhosis Hepatosplenomegaly Portal HTN ascites etiol?? S/P Hepatic encephalopathy Pancytopenia Low prot/alb Ascites s/p multiple paracentesis Lasix zaroxylyn Lactulose GI ROBB CKD? Hepatorenal? Nephrology Dialysis as needed [facility] Liver transplant? TIPS ? Severe AI Endocarditis?? A-fib/ rate controlled Cardiology and ID Low back pain etiol? Lidocaine
--- NOTE | 2016-10-30 08:21 | CP.PCM.PN ---
Subjective - Date & Time of Evaluation Date of Evaluation: 10/30/16 Time of Evaluation: 22:22 - Subjective Subjective: DOing well Creat 2.5 Objective - Vital Signs/Intake and Output Vital Signs (last 24 hours): Temp Pulse Resp BP Pulse Ox 98.4 F 81 18 113/52 L 96 10/30/16 05:20 10/30/16 05:20 10/30/16 05:20 10/30/16 05:20 10/30/16 05:20 Intake and Output: 10/30/16 10/30/16 06:59 18:59 Intake Total 240 Output Total 250 Balance -10 - Medications Medications: Current Medications Calcium Acetate (Phoslo) 667 mg PO TID [facility] Last Admin: 10/29/16 17:39 Dose: 667 mg Epoetin Roberto (Procrit) 6,000 unit IV MWF [facility] Last Admin: 10/28/16 16:57 Dose: 6,000 unit Lactulose (Enulose) 10 gm PO TID [facility] Last Admin: 10/29/16 17:40 Dose: 10 gm Lidocaine (Lidoderm) 1 ea TD DAILY PRN PRN Reason: Pain, moderate (4-7) Metolazone (Zaroxolyn) 2.5 mg PO DAILY [facility] Last Admin: 10/29/16 09:11 Dose: 2.5 mg Torsemide (Demadex) 100 mg PO DAILY [facility] Last Admin: 10/29/16 09:10 Dose: 100 mg Vitamin B Complex/Vit C/Folic Acid (Nephro-Juan) 1 tab PO DAILY [facility] - Labs Labs: 10/29/16 06:00 10/29/16 06:00 PT 22.4 Seconds (9.8-13.1) H 10/28/16 12:15 INR 2.1 (0.9-1.2) H 10/28/16 12:15 APTT 46.0 Seconds (25.6-37.1) H 10/21/16 09:05 - Respiratory Exam Respiratory Exam: NORMAL BREATHING PATTERN - Cardiovascular Exam Cardiovascular Exam: REGULAR RHYTHM - GI/Abdominal Exam GI & Abdominal Exam: Normal Bowel Sounds Assessment and Plan - Assessment and Plan (Free Text) Assessment: Cirrhosis Hepatosplenomegaly Portal HTN ascites etiol?? S/P Hepatic encephalopathy Pancytopenia Low prot/alb Ascites s/p multiple paracentesis Lasix zaroxylyn Lactulose GI ROBB CKD? Hepatorenal? Nephrology Dialysis as needed [facility] Liver transplant? TIPS ? Severe AI Endocarditis?? A-fib/ rate controlled Cardiology and ID Low back pain etiol? Lidocaine
[2016-10-30] MEDS: Multivitamin Vitamin B Complex (Nephro-Vite) Tab PO SCH (09:41)
[2016-10-30] MEDS: Lactulose 10 gm/15 ml Syrup PO SCH ×3 (09:41→16:54)
[2016-10-30] MEDS: metOLazone 2.5 MG TAB PO SCH (10:10)
--- NOTE | 2016-10-30 11:27 | CP.PCM.PN ---
Subjective - Date & Time of Evaluation Date of Evaluation: 10/30/16 Time of Evaluation: 07:00 - Subjective Subjective: no fever or chills Objective - Vital Signs/Intake and Output Vital Signs (last 24 hours): Temp Pulse Resp BP Pulse Ox 97.6 F 80 18 106/40 L 97 10/30/16 08:00 10/30/16 08:00 10/30/16 08:00 10/30/16 08:00 10/30/16 08:00 Intake and Output: 10/30/16 10/30/16 06:59 18:59 Intake Total 240 Output Total 250 Balance -10 - Medications Medications: Current Medications Calcium Acetate (Phoslo) 667 mg PO TID [facility] Last Admin: 10/30/16 09:42 Dose: 667 mg Epoetin Roberto (Procrit) 6,000 unit IV MWF [facility] Last Admin: 10/28/16 16:57 Dose: 6,000 unit Lactulose (Enulose) 10 gm PO TID [facility] Last Admin: 10/30/16 09:41 Dose: 10 gm Lidocaine (Lidoderm) 1 ea TD DAILY PRN PRN Reason: Pain, moderate (4-7) Last Admin: 10/30/16 09:42 Dose: 1 ea Metolazone (Zaroxolyn) 2.5 mg PO DAILY [facility] Last Admin: 10/30/16 10:10 Dose: 2.5 mg Torsemide (Demadex) 100 mg PO DAILY [facility] Last Admin: 10/30/16 10:10 Dose: 100 mg Vitamin B Complex/Vit C/Folic Acid (Nephro-Juan) 1 tab PO DAILY [facility] Last Admin: 10/30/16 09:41 Dose: 1 tab - Labs Labs: 10/29/16 06:00 10/29/16 06:00 PT 22.4 Seconds (9.8-13.1) H 10/28/16 12:15 INR 2.1 (0.9-1.2) H 10/28/16 12:15 APTT 46.0 Seconds (25.6-37.1) H 10/21/16 09:05 - Constitutional Appears: Non-toxic, Chronically Ill - Head Exam Head Exam: NORMOCEPHALIC - Eye Exam Eye Exam: PERRL - ENT Exam ENT Exam: Mucous Membranes Dry - Respiratory Exam Respiratory Exam: Decreased Breath Sounds - Cardiovascular Exam Cardiovascular Exam: REGULAR RHYTHM - GI/Abdominal Exam GI & Abdominal Exam: Distended, Soft - Rectal Exam Rectal Exam: Deferred - Exam Exam: NORMAL INSPECTION Assessment and Plan (1) Chronic kidney disease, stage III (moderate) Status: Chronic (2) Cirrhosis of liver with ascites Status: Chronic (3) Ascites of liver Status: Acute (4) Leg edema Status: Chronic - Assessment and Plan (Free Text) Plan: cultures neg thus far for transfer to [facility]
--- NOTE | 2016-10-30 17:01 | CP.PCM.PN ---
Subjective - Date & Time of Evaluation Date of Evaluation: 10/30/16 Time of Evaluation: 17:00 - Subjective Subjective: Follow up Nephrology Consultation Note Assessment: Stable Acute Kidney Injury (N17.9) possibly due to hepato-renal syndrome now dialysis dependent Hypertensive Chronic Kidney Disease (I12.9) Chronic Kidney Disease (N18.3) Stage 3 with ?mg proteinuria (baseline cr 1.7-2.0 ) Anemia (D64.9), Hyperphosphatemia (E83.39), Secondary Hyperparathyroidism (E21.1 ), HTN (I12.9). thrombocytopenia severe Aortic insufficiency Cirrhosis Plan No acute need for renal replacement therapy today. had HD monday. plan for HD tomorrow Hypertension control with meds as ordered. Patient not on ACEI/ARB due to ROBB Monitor Input/Output, daily weights and renal function with basic metabolic panel continue with epogen with HD pt also on phoslo for elevated phos Dose meds/antibiotics for reduced GFR. Avoid fleets enema/magnesium based laxatives. Avoid nephrotoxins/NSAIDs/ iodinated contrast (unless needed emergently) Glycemic control Further work up for as per primary team Thanks for allowing me to participate in care of your patient. Will follow patient with you. Please call if any Qs Dr Dann Hinojosa Office: [phone] Subjective: Noted events overnight. Patients feels okay. Denies chest pain, palpitation, shortness of breath, has leg swelling. No urinary complaints except not much amount Physical Examination: General Appearance: Comfortable, in no acute respiratory distress, co- operative. Vitals reviewed and noted as below Lungs: Normal respiratory rate/effort. Breath sounds bilateral equal and clear except few basal crackle Heart: Normal rate. s1s2 normal. No rub or gallop. Extremities: 1-2+ edema. Neurological: Patient is alert, awake and oriented to person, place and time. No focal deficit. Strength bilateral appropriate and equal Skin: Warm and dry. Normal turgor. No rash. Palpitation: Normal elasticity for age Abdomen: Abdomen is soft. Bowel sounds +. There is no abdominal tenderness, no guarding/rigidity or organomegaly. has ascites : kidney or bladder not palpable Access: Rt permacath Labs/imaging reviewed. Past medical history, past surgical history, family history, social history, allergy reviewed Work up 24 hr CrCl 11 Echo: severe AI Renal sono unremarkable PTH 106 Objective - Vital Signs/Intake and Output Vital Signs (last 24 hours): Temp Pulse Resp BP Pulse Ox 97.7 F 80 18 106/53 L 100 10/30/16 15:42 10/30/16 15:42 10/30/16 15:42 10/30/16 15:42 10/30/16 15:42 Intake and Output: 10/30/16 10/30/16 06:59 18:59 Intake Total 240 Output Total 250 Balance -10 - Medications Medications: Current Medications Calcium Acetate (Phoslo) 667 mg PO TID [facility] Last Admin: 10/30/16 16:54 Dose: 667 mg Epoetin Roberto (Procrit) 6,000 unit IV MWF [facility] Last Admin: 10/28/16 16:57 Dose: 6,000 unit Lactulose (Enulose) 10 gm PO TID [facility] Last Admin: 10/30/16 16:54 Dose: 10 gm Lidocaine (Lidoderm) 1 ea TD DAILY PRN PRN Reason: Pain, moderate (4-7) Last Admin: 10/30/16 09:42 Dose: 1 ea Metolazone (Zaroxolyn) 2.5 mg PO DAILY [facility] Last Admin: 10/30/16 10:10 Dose: 2.5 mg Torsemide (Demadex) 100 mg PO DAILY [facility] Last Admin: 10/30/16 10:10 Dose: 100 mg Vitamin B Complex/Vit C/Folic Acid (Nephro-Juan) 1 tab PO DAILY [facility] Last Admin: 10/30/16 09:41 Dose: 1 tab - Labs Labs: 10/29/16 06:00 10/29/16 06:00 PT 22.4 Seconds (9.8-13.1) H 10/28/16 12:15 INR 2.1 (0.9-1.2) H 10/28/16 12:15 APTT 46.0 Seconds (25.6-37.1) H 10/21/16 09:05
[2016-10-31] MEDS: metOLazone 2.5 MG TAB PO SCH (08:43)
[2016-10-31] MEDS ORDERED: EPOETIN ALFA 10,000 UNIT/ML ML IV SCH ×2 (09:00→10:03)
[2016-10-31] MEDS: Lactulose 10 gm/15 ml Syrup PO SCH ×3 (09:21→16:46)
[2016-10-31] MEDS: Multivitamin Vitamin B Complex (Nephro-Vite) Tab PO SCH (09:21)
--- NOTE | 2016-10-31 10:01 | CP.PCM.PN ---
Subjective - Date & Time of Evaluation Date of Evaluation: 10/31/16 Time of Evaluation: 09:57 - Subjective Subjective: He was seen on hemodialysis now Sitting got awake and conscious Tolerating hemodialysis well Decrease edema of the legs Objective - Vital Signs/Intake and Output Vital Signs (last 24 hours): Temp Pulse Resp BP Pulse Ox 97.7 F 76 18 100/43 L 99 10/31/16 08:00 10/31/16 08:00 10/31/16 08:00 10/31/16 08:00 10/31/16 08:00 Intake and Output: 10/31/16 10/31/16 06:59 18:59 Intake Total 480 Output Total 300 Balance 180 - Medications Medications: Current Medications Calcium Acetate (Phoslo) 667 mg PO TID [facility] Last Admin: 10/31/16 09:21 Dose: 667 mg Epoetin Roberto (Procrit) 6,000 unit IV MWF [facility] Last Admin: 10/31/16 08:18 Dose: 6,000 unit Lactulose (Enulose) 10 gm PO TID [facility] Last Admin: 10/31/16 09:21 Dose: 10 gm Lidocaine (Lidoderm) 1 ea TD DAILY PRN PRN Reason: Pain, moderate (4-7) Last Admin: 10/30/16 09:42 Dose: 1 ea Metolazone (Zaroxolyn) 2.5 mg PO DAILY [facility] Last Admin: 10/31/16 08:43 Dose: Not Given Torsemide (Demadex) 100 mg PO DAILY [facility] Last Admin: 10/31/16 08:42 Dose: Not Given Vitamin B Complex/Vit C/Folic Acid (Nephro-Juan) 1 tab PO DAILY [facility] Last Admin: 10/31/16 09:21 Dose: 1 tab - Labs Labs: 10/29/16 06:00 10/29/16 06:00 PT 22.4 Seconds (9.8-13.1) H 10/28/16 12:15 INR 2.1 (0.9-1.2) H 10/28/16 12:15 APTT 46.0 Seconds (25.6-37.1) H 10/21/16 09:05 - Constitutional Appears: No Acute Distress - ENT Exam ENT Exam: Mucous Membranes Moist - Respiratory Exam Respiratory Exam: NORMAL BREATHING PATTERN. absent: Chest Wall Tenderness - Cardiovascular Exam Cardiovascular Exam: absent: JVD, Rubs - GI/Abdominal Exam GI & Abdominal Exam: Guarding, Normal Bowel Sounds - Extremities Exam Extremities Exam: absent: Calf Tenderness - Back Exam Back Exam: absent: CVA tenderness (L), CVA tenderness (R) - Neurological Exam Neurological Exam: Alert Assessment and Plan (1) Chronic kidney disease, stage III (moderate) Assessment & Plan: Impression and plan Again acute renal failure perhaps from hepatorenal syndrome superimposed on chronic kidney disease stage III Advanced liver cirrhosis Seen in hemodialysis aortic insufficiency Patient may be going to [facility] next week for cardiac procedures. 24 hours urine creatinine clearance 11 mL . Hemodialysis with ultrafiltration approximately 1500 mL as tolerated Anemia we will increase EPO Repeat serum phosphorus level and PTH Status: Chronic (2) Cirrhosis of liver with ascites Status: Chronic
[2016-10-31] MEDS ORDERED: Epoetin Alfa 4000 UNIT/ML Inj IV ONE (11:15)
--- NOTE | 2016-10-31 12:25 | CP.PCM.PN ---
Subjective - Date & Time of Evaluation Date of Evaluation: 10/31/16 Time of Evaluation: 08:30 - Subjective Subjective: NO NEW COMPLAINTS Objective - Vital Signs/Intake and Output Vital Signs (last 24 hours): Temp Pulse Resp BP Pulse Ox 97.7 F 76 18 100/43 L 99 10/31/16 08:00 10/31/16 08:00 10/31/16 08:00 10/31/16 08:00 10/31/16 08:00 Intake and Output: 10/31/16 10/31/16 06:59 18:59 Intake Total 480 Output Total 300 Balance 180 - Medications Medications: Current Medications Calcium Acetate (Phoslo) 667 mg PO TID [facility] Last Admin: 10/31/16 09:21 Dose: 667 mg Epoetin Roberto (Procrit) 10,000 unit IV [facility] [place] Lactulose (Enulose) 10 gm PO TID [facility] Last Admin: 10/31/16 09:21 Dose: 10 gm Lidocaine (Lidoderm) 1 ea TD DAILY PRN PRN Reason: Pain, moderate (4-7) Last Admin: 10/30/16 09:42 Dose: 1 ea Metolazone (Zaroxolyn) 2.5 mg PO DAILY [facility] Last Admin: 10/31/16 08:43 Dose: Not Given Torsemide (Demadex) 100 mg PO DAILY [facility] Last Admin: 10/31/16 08:42 Dose: Not Given Vitamin B Complex/Vit C/Folic Acid (Nephro-Juan) 1 tab PO DAILY [facility] Last Admin: 10/31/16 09:21 Dose: 1 tab - Labs Labs: 10/29/16 06:00 10/29/16 06:00 PT 22.4 Seconds (9.8-13.1) H 10/28/16 12:15 INR 2.1 (0.9-1.2) H 10/28/16 12:15 APTT 46.0 Seconds (25.6-37.1) H 10/21/16 09:05 - Respiratory Exam Respiratory Exam: Clear to Ausculation Bilateral - Cardiovascular Exam Cardiovascular Exam: REGULAR RHYTHM, +S1, +S2 - Extremities Exam Additional comments: MILD LE EDEMA - Additional Findings Additional findings: CHAIR NSR NOTES OF DR NEWTON, NEPHROLOGY AND ID REVIEWED Assessment and Plan - Assessment and Plan (Free Text) Assessment: SEVERE AR CIRRHOSIS OF THE LIVER RENAL FAILURE Plan: CONTINUE TORSEMIDE, ZAROXOLYN AND LACTULOSE FOR TRANSFER TO [facility]-WILL CALL [facility] [employer] AGAIN
--- NOTE | 2016-10-31 12:31 | CP.PCM.PN ---
Subjective - Date & Time of Evaluation Date of Evaluation: 10/31/16 Time of Evaluation: 12:29 - Subjective Subjective: Patient denies and complaints currently. Appears better since hemodialysis started. Objective - Vital Signs/Intake and Output Vital Signs (last 24 hours): Temp Pulse Resp BP Pulse Ox 98.4 F 81 18 106/47 L 95 10/31/16 12:00 10/31/16 12:00 10/31/16 12:00 10/31/16 12:00 10/31/16 12:00 Intake and Output: 10/31/16 10/31/16 06:59 18:59 Intake Total 480 Output Total 300 Balance 180 - Medications Medications: Current Medications Calcium Acetate (Phoslo) 667 mg PO TID [facility] Last Admin: 10/31/16 12:27 Dose: 667 mg Epoetin Roberto (Procrit) 10,000 unit IV F [facility] Lactulose (Enulose) 10 gm PO TID [facility] Last Admin: 10/31/16 12:27 Dose: 10 gm Lidocaine (Lidoderm) 1 ea TD DAILY PRN PRN Reason: Pain, moderate (4-7) Last Admin: 10/30/16 09:42 Dose: 1 ea Metolazone (Zaroxolyn) 2.5 mg PO DAILY [facility] Last Admin: 10/31/16 08:43 Dose: Not Given Torsemide (Demadex) 100 mg PO DAILY [facility] Last Admin: 10/31/16 08:42 Dose: Not Given Vitamin B Complex/Vit C/Folic Acid (Nephro-Juan) 1 tab PO DAILY [facility] Last Admin: 10/31/16 09:21 Dose: 1 tab - Labs Labs: 10/29/16 06:00 10/29/16 06:00 PT 22.4 Seconds (9.8-13.1) H 10/28/16 12:15 INR 2.1 (0.9-1.2) H 10/28/16 12:15 APTT 46.0 Seconds (25.6-37.1) H 10/21/16 09:05 - Head Exam Head Exam: ATRAUMATIC - Eye Exam Eye Exam: Normal appearance Pupil Exam: PERRL - Neck Exam Neck Exam: Full ROM - Respiratory Exam Respiratory Exam: NORMAL BREATHING PATTERN - Cardiovascular Exam Cardiovascular Exam: +S1, +S2 - GI/Abdominal Exam GI & Abdominal Exam: Distended, Firm. absent: Tenderness Assessment and Plan (1) Cirrhosis of liver with ascites Assessment & Plan: Abdomen distended but not hard. Ascites seems to have reaccumulated less quickly since starting hemodialysis. Is awake and responsive. Status: Chronic
--- NOTE | 2016-10-31 13:47 | US ---
Date of Procedure: 10/27/2016 PROCEDURE: Ultrasound-guided paracentesis, CPT 13177 Medications: 7 cc 1% Lidocaine HISTORY: Ascites, abdominal pain, cirrhosis TECHNIQUE: Following informed consent , the patient was placed supine on the stretcher and the site was marked. A limited abdominal ultrasound was performed that showed a large amount of intra-abdominal fluid. Procedural time out was called and the Pt's abdomen was marked and prepped and draped in the usual sterile fashion. Ultrasound-guided large volume paracentesis performed. A total of 9.1 liters of straw colored fluid was removed without complication. IMPRESSION: Ultrasound-guided large volume paracentesis.
[2016-10-31 15:49] VITALS: RESP 20
--- NOTE | 2016-10-31 19:26 | CP.PCM.PN ---
Subjective - Date & Time of Evaluation Date of Evaluation: 10/31/16 Time of Evaluation: 22:22 - Subjective Subjective: Doing well Above noted Objective - Vital Signs/Intake and Output Vital Signs (last 24 hours): Temp Pulse Resp BP Pulse Ox 98.5 F 78 20 130/30 L 96 10/31/16 17:00 10/31/16 17:00 10/31/16 17:00 10/31/16 17:00 10/31/16 17:00 Intake and Output: 10/31/16 11/01/16 18:59 06:59 Intake Total 300 Output Total 25 Balance 275 - Medications Medications: Current Medications Calcium Acetate (Phoslo) 667 mg PO TID [facility] Last Admin: 10/31/16 16:46 Dose: 667 mg Epoetin Roberto (Procrit) 10,000 [place] [facility] [place] Lactulose (Enulose) 10 gm PO TID [facility] Last Admin: 10/31/16 16:46 Dose: 10 gm Lidocaine (Lidoderm) 1 ea TD DAILY PRN PRN Reason: Pain, moderate (4-7) Last Admin: 10/30/16 09:42 Dose: 1 ea Metolazone (Zaroxolyn) 2.5 mg PO DAILY [facility] Last Admin: 10/31/16 08:43 Dose: Not Given Torsemide (Demadex) 100 mg PO DAILY [facility] Last Admin: 10/31/16 08:42 Dose: Not Given Vitamin B Complex/Vit C/Folic Acid (Nephro-Juan) 1 tab PO DAILY [facility] Last Admin: 10/31/16 09:21 Dose: 1 tab - Labs Labs: 10/29/16 06:00 10/29/16 06:00 PT 22.4 Seconds (9.8-13.1) H 10/28/16 12:15 INR 2.1 (0.9-1.2) H 10/28/16 12:15 APTT 46.0 Seconds (25.6-37.1) H 10/21/16 09:05 - Respiratory Exam Respiratory Exam: NORMAL BREATHING PATTERN - Cardiovascular Exam Cardiovascular Exam: Tachycardia, REGULAR RHYTHM - GI/Abdominal Exam GI & Abdominal Exam: Normal Bowel Sounds Assessment and Plan - Assessment and Plan (Free Text) Assessment: Cirrhosis Hepatosplenomegaly Portal HTN ascites etiol?? S/P Hepatic encephalopathy Pancytopenia Low prot/alb Ascites s/p multiple paracentesis Torsemidie zaroxylyn Lactulose GI ROBB CKD? Hepatorenal? Nephrology Dialysis as needed NVU Liver transplant? TIPS ? Severe AI Endocarditis?? Cardiology and ID Low back pain etiol? Lidocaine
[2016-10-31 19:45] VITALS: BP 167/50; TEMP 98.2; O2SAT 99
[2016-11-01 00:01] VITALS: PULSE 78
--- NOTE | 2016-11-09 15:56 | CP.PCM.HP ---
History of Present Illness - History of Present Illness History of Present Illness: 71 yo admitted for SOB Present on Admission - Present on Admission Any Indicators Present on Admission: No Past Patient History - Infectious Disease Hx of Infectious Diseases: None - Past Medical History & Family History Past Medical History?: Yes - Past Social History Smoking Status: Former Smoker - CARDIAC Hx Cardiac Disorders: Yes (AFIB/Murmur/HTN/BLE edema) - PULMONARY Hx Respiratory Disorders: No - NEUROLOGICAL Hx Neurological Disorder: No - HEENT Hx HEENT Problems: No Other/Comment: uses eye glasses - RENAL Hx Chronic Kidney Disease: Yes - ENDOCRINE/METABOLIC Hx Endocrine Disorders: No - HEMATOLOGICAL/ONCOLOGICAL Hx Human Immunodeficiency Virus (HIV): No - INTEGUMENTARY Hx Dermatological Problems: Yes Hx Cellulitis: Yes - MUSCULOSKELETAL/RHEUMATOLOGICAL Hx Musculoskeletal Disorders: Yes (Arthritis/Back problems) Hx Falls: Yes - GASTROINTESTINAL Hx Gastrointestinal Disorders: Yes Other/Comment: Ascites - GENITOURINARY/GYNECOLOGICAL Hx Genitourinary Disorders: No - PSYCHIATRIC Hx Psychophysiologic Disorder: No Hx Substance Use: No - SURGICAL HISTORY Hx Surgeries: Yes Other/Comment: 2000 arthroscopic knee surgery - ANESTHESIA Hx Anesthesia: Yes Hx Anesthesia Reactions: No Hx Malignant Hyperthermia: No Meds Home Medications: Home Medication List Medication Instructions Recorded Confirmed Type Calcium Acetate [Phoslo] 667 mg PO TID tab 10/31/16 Rx Epoetin Roberto [Procrit] 10,000 unit IV MWF ml 10/31/16 Rx Lactulose [Enulose] 10 gm PO TID 10/31/16 Rx Lidocaine 5% [Lidoderm] 1 ea TD DAILY PRN patch 10/31/16 Rx Torsemide [Demadex] 100 mg PO DAILY tab 10/31/16 Rx Vitamin B Complex/Vit C/Folic 1 tab PO DAILY tab 10/31/16 Rx [Nephro-Juan] metOLazone [Zaroxolyn] 2.5 mg PO DAILY tab 10/31/16 Rx Allergies/Adverse Reactions: Allergies Allergy/AdvReac Type Severity Reaction Status Date / Time No Known Allergies Allergy Verified 09/07/16 20:08 Physical Exam - Respiratory Exam Respiratory Exam: Respiratory Distress - Cardiovascular Exam Cardiovascular Exam: REGULAR RHYTHM - GI/Abdominal Exam GI & Abdominal Exam: Normal Bowel Sounds Results - Vital Signs Recent Vital Signs: Last Vital Signs Temp 98.2 F 10/31/16 19:44 Pulse 78 10/31/16 21:00 Resp 20 10/31/16 19:44 BP 167/50 H 10/31/16 19:44 Pulse Ox 99 10/31/16 19:44 - Labs Result Diagrams: 10/29/16 06:00 10/29/16 06:00 Assessment & Plan - Assessment and Plan (Free Text) Assessment: Cirrhosis Hepatosplenomegaly Portal HTN ascites etiol?? S/P Hepatic encephalopathy Pancytopenia Low prot/alb Ascites s/p multiple paracentesis Lasix zaroxylyn Lactulose GI CKD? Hepatorenal? Nephrology [facility] Liver transplant? TIPS ? Endocarditis?? Get records Lower extremity edema with erythema much improved Leg elevation Lasix A-fib/ rate controlled Amiodorone INR 2.0 Cardiology ] Low back pain etiol? improved SOB? 2 to ascites Duoneb - Date & Time Date: 10/17/16 Time: 22:22
== END 2016-10-31 21:10 | disposition short-term general hospital (02) | DRG 432 ==
LOC: H.ER 16:53 → H.ERHOLD 18:31 → H.TEL 22:26
PROVIDERS: ADMIT Family Medicine Geriatric Medicine; ATTEND Family Medicine Geriatric Medicine
PROC: 0W9G3ZZ Drainage of Peritoneal Cavity, Percutaneous Approach (ICD-10-PCS; principal; 2016-10-18)
PROC: 5A1D60Z (ICD-10-PCS; 2016-10-21)
PROC: 05HM33Z Insertion of Infusion Device into Right Internal Jugular Vein, Percutaneous Approach (ICD-10-PCS; 2016-10-21)
PROC: B543ZZA Ultrasonography of Right Jugular Veins, Guidance (ICD-10-PCS; 2016-10-21)
PROC: 0W9G3ZZ Drainage of Peritoneal Cavity, Percutaneous Approach (ICD-10-PCS; 2016-10-24)
PROC: 30233K1 Transfusion of Nonautologous Frozen Plasma into Peripheral Vein, Percutaneous Approach (ICD-10-PCS; 2016-10-25)
DX: K74.69 Other cirrhosis of liver (principal); K76.7 Hepatorenal syndrome; N17.9 Acute kidney failure, unspecified; D61.818 Other pancytopenia; E87.2 Acidosis; Z76.82 Awaiting organ transplant status; N18.3 Chronic kidney disease, stage 3 (moderate); R18.8 Other ascites; K76.6 Portal hypertension; I48.91 Unspecified atrial fibrillation; I12.9 Hypertensive chronic kidney disease with stage 1 through stage 4 chronic kidney disease, or unspecified chronic kidney disease; I70.0 Atherosclerosis of aorta; I35.1 Nonrheumatic aortic (valve) insufficiency; K72.90 Hepatic failure, unspecified without coma; R16.2 Hepatomegaly with splenomegaly, not elsewhere classified; D64.9 Anemia, unspecified; E87.6 Hypokalemia; E83.39 Other disorders of phosphorus metabolism; D69.59 Other secondary thrombocytopenia; J44.9 Chronic obstructive pulmonary disease, unspecified; M19.90 Unspecified osteoarthritis, unspecified site; Z86.79 Personal history of other diseases of the circulatory system; Z87.891 Personal history of nicotine dependence